=== PATIENT | male | born 1950 | race Caucasian/White ===

== ENCOUNTER 2016-10-23 18:59 | Inpatient (IN) | payer MEDICARE, MEDICAID ==
[~2016-10-23] VITALS: Ht 167.6 cm; Wt 103.0 kg
[2016-10-23] MEDS ORDERED: SODIUM CHLORIDE 0.9% 1L BAG IV* STA (19:17)
[2016-10-23] MEDS ORDERED: CEFEPIME 2GM/50 ML (PMX) 50 ML IVPB STA (19:17)
[2016-10-23 19:20] VITALS: Ht 167.6 cm; Wt 103.0 kg
[2016-10-23] MEDS ORDERED: VANCOMYCIN 1 GM (PMX) 250 ML IVPB SCH ×2 (19:30→20:30)
[2016-10-23] MEDS ORDERED: IBUPROFEN 600 MG TAB PO ONE (19:30)
[2016-10-23 19:41] LABS: ADD SCAN DIFF NO
[2016-10-23 19:43] LABS: BASOPHIL # 0.1 10^3/ul (0.0-0.1); BASOPHILS % 0.6 % (0.0-2.0); EOSINOPHILS # 1.2 10^3/ul (0.0-0.5); HEMATOCRIT 35.4 % (42.0-52.0); HEMOGLOBIN 11.1 g/dl (14.0-18.0); LYMPHOCYTES # 4.4 10^3/ul (0.8-2.9); LYMPHOCYTES % 22.9 % (15.0-51.0); MEAN CORPUSCULAR HEMOGLOBIN 27.2 pg (29.0-33.0); MEAN CORPUSCULAR HGB CONC 31.4 g/dl (32.0-37.0); MEAN CORPUSCULAR VOLUME 86.8 fl (82.0-101.0); MEAN PLATELET VOLUME 9.5 fl (7.4-10.4); MONOCYTE # 1.2 10^3/ul (0.3-0.9); MONOCYTES % 6.1 % (0.0-11.0); NEUTROPHIL # 12.3 10^3/ul (1.6-7.5); NEUTROPHILS % 63.9 % (39.0-77.0); PLATELET COUNT 369 10^3/UL (140-415); RED BLOOD COUNT 4.08 10^6/ul (4.70-6.10); RED CELL DISTRIBUTION WIDTH 15.8 % (11.5-14.5); WHITE BLOOD COUNT 19.2 10^3/ul (4.8-10.8)
[2016-10-23 20:03] LABS: ALBUMIN/GLOBULIN RATIO 1.08; BILIRUBIN,INDIRECT 0.2 mg/dl (0-1.1); BILIRUBIN,TOTAL 0.2 mg/dl (0.2-1.3); CREATININE 1.27 mg/dl (0.61-1.24); POTASSIUM 3.8 mmol/L (3.5-5.1); TOTAL PROTEIN 7.7 g/dl (6.1-8.1)
[2016-10-23 20:08] LABS: INR 1.18; PROTIME 15.1 Sec (12.2-14.2); PT RATIO 1.2
[2016-10-23 20:09] LABS: PARTIAL THROMBOPLASTIN TIME 28.9 Sec (25.0-35.0)
[2016-10-23] MEDS ORDERED: PIPER-TAZO 3.375 GM IV (PMX) 100 ML IVPB ONE (20:30)
--- NOTE | 2016-10-23 21:00 | RADRPT ---
PROCEDURE: XR Chest. CLINICAL INDICATION: Tracheostomy placement. TECHNIQUE: Portable AP upright view of the chest was obtained. COMPARISON: None. FINDINGS: The cardiomediastinal silhouette is moderately enlarged. Distal tip of the tracheostomy is in good position approximately 3.4 cm above the sahra. Diffuse pulmonary vascular congestion and bilateral pleural effusions are concerning for congestive heart failure. Diffuse spondylosis of the thoracic spine is seen without evidence of acute osseous abnormality. Calcification is visible within the ao rta RPTAT:HJJR IMPRESSION: 1. Distal tip of the tracheostomy in good radiographic position. 2. Cardiac silhouette enlargement with diffuse pulmonary vascular congestion and bilateral pleural effusions concerning for congestive heart failure. 3. Aortic atherosclerosis is present. Physician Juan Antonio Date Time Electronically viewed and signed by Physician Juan Antonio on 10/23/2016 21:00 /
--- NOTE | 2016-10-23 21:25 | ERA ---
ER Documentation Chief Complaint Date/Time DATE: 10/23/16 TIME: 21:15 Chief Complaint sob after trache became dislodged HPI 66-year-old man brought in by EMS from [facility] for respiratory distress and hypoxia. Nurses were attempting to suction his tracheostomy tube and the tracheostomy tube became dislodged and they had difficulty replacing it, patient developed cyanosis and respiratory distress. EMS was called and they cut the tip of the tracheostomy tube and placed it back in and symptoms improved. Patient was transported here without further complications. Patient had a fever today, he has had no chest pain, and is asymptomatic now. HPI was supplemented by reviewing past medical history, [facility] records, speaking to EMS, and nursing staff. ROS All systems reviewed and are negative except as per history of present illness. Allergies Allergies: Coded Allergies: No Known Allergy (Unverified , 10/23/16) PMhx/Soc Obesity, bilateral lower extremity paralysis, tracheostomy, hypertension, History of Surgery: Yes (tracheostomy) Anesthesia Reaction: No Hx Neurological Disorder: No Hx Respiratory Disorders: Yes (respiratory failure w/ hypoxia) Hx Cardiac Disorders: Yes (afib, meth induced cardiomyopathy, hld) Hx Psychiatric Problems: No Hx Miscellaneous Medical Probl: Yes (dm,cholecystitis) Hx Alcohol Use: No Hx Substance Use: Yes (meth) Hx Tobacco Use: Yes Smoking Status: Former smoker FmHx Family History: diabetes Physical Exam Vitals Vital Signs Date Time Temp Pulse Resp B/P Pulse Ox O2 Delivery O2 Flow Rate FiO2 10/23/16 19:39 100.4 89 20 140/81 99 Trach Collar 4.0 10/23/16 19:20 100.4 90 15 151/81 95 10/23/16 19:15 98 4.0 10/23/16 19:00 84 24 100 100 Physical Exam GENERAL: Well-developed, dehydrated, febrile HEENT: Dry mucous membranes, pink conjunctiva, no cervical spine deformity, neck appears clean and dry, tracheostomy tube is in place at this time without discharge NEURO: Alert and oriented 2 able to answer questions and follow simple commands , nonverbal, pupils equal round reactive to light, bilateral lower extremity paresis CARDIAC: Tachycardic and regular no murmurs rubs or gallops LUNGS: Bibasilar crackles, no wheezing or stridor ABDOMEN: Soft nontender, no guarding, no rigidity, no rebound, no psoas sign no obturator sign. SKIN: Hot and dry to touch, no abrasions, contusions, or hematomas, no lacerations, no ecchymosis, no target lesions, and without ulcers EXTREMITIES: No clubbing cyanosis or edema, calves are bilaterally symmetrical, no Homans sign, no popliteal cord sign. Distal pulses equal and bilateral PSYCH: Normal affect without agitation or irritability Result Diagram: 10/23/16191410/23/161914 Results 24 hrs Laboratory Tests Test 10/23/16 19:06 10/23/16 19:15 10/23/16 21:09 Bedside Glucose 225mg/dL White Blood Count 19.210^3/ul Red Blood Count 4.0810^6/ul Hemoglobin 11.1g/dl Hematocrit 35.4% Mean Corpuscular Volume 86.8fl Mean Corpuscular Hemoglobin 27.2pg Mean Corpuscular Hemoglobin Concent 31.4g/dl Red Cell Distribution Width 15.8% Platelet Count 93543^3/UL Mean Platelet Volume 9.5fl Neutrophils % 63.9% Lymphocytes % 22.9% Monocytes % 6.1% Eosinophils % 6.0% Basophils % 0.6% Nucleated Red Blood Cells % 0.0/100WBC Neutrophils # 12.310^3/ul Lymphocytes # 4.410^3/ul Monocytes # 1.210^3/ul Eosinophils # 1.210^3/ul Basophils # 0.110^3/ul Nucleated Red Blood Cells # 0.010^3/ul Prothrombin Time 15.1Sec Prothrombin Time Ratio 1.2 INR International Normalized Ratio 1.18 Activated Partial Thromboplast Time 28.9Sec Sodium Level 142mmol/L Potassium Level 3.8mmol/L Chloride Level 105mmol/L Carbon Dioxide Level 26mmol/L Anion Gap 15 Blood Urea Nitrogen 19mg/dl Creatinine 1.27mg/dl Glucose Level 246mg/dl Lactic Acid Level 2.3mmol/L Calcium Level 9.0mg/dl Total Bilirubin 0.2mg/dl Direct Bilirubin 0.00mg/dl Indirect Bilirubin 0.2mg/dl Aspartate Amino Transf (AST/SGOT) 23IU/L Alanine Aminotransferase (ALT/SGPT) 22IU/L Alkaline Phosphatase 134IU/L Troponin I 0.044ng/ml Total Protein 7.7g/dl Albumin 4.0g/dl Globulin 3.70g/dl Albumin/Globulin Ratio 1.08 Lipase 30U/L Urine Color YELLOW Urine Clarity SLIGHTLY CLOUDY Urine pH 5.0 Urine Specific [place] 1.027 Urine Ketones NEGATIVEmg/dL Urine Nitrite NEGATIVEmg/dL Urine Bilirubin NEGATIVEmg/dL Urine Urobilinogen NEGATIVEmg/dL Urine Leukocyte Esterase NEGATIVELeu/ul Urine Microscopic RBC 3/HPF Urine Microscopic WBC 4/HPF Urine Bacteria FEW/HPF Urine Hyaline Casts FEW/HPF Urine Mucus FEW/HPF Urine Hemoglobin NEGATIVEmg/dL Urine Glucose 1+mg/dL Urine Total Protein 3+mg/dl Current Medications Medications (Trade) Dose Ordered Sig/Juventino Route PRN Reason Start Time Stop Time Status Last Admin Dose Admin Sodium Chloride 2000 ml 2,000 ml BOLUS OVER 2 HOURS STAT IV* 10/23/16 19:17 10/23/16 19:19 DC 10/23/16 19:44 Cefepime HCl 50 ml @ 100 mls/hr ONCE STAT IVPB 10/23/16 19:17 10/23/16 19:46 DC 10/23/16 21:10 Vancomycin HCl (Vancocin) 250 ml @ 125 mls/hr ONCE IVPB 10/23/16 19:30 10/23/16 21:29 DC 10/23/16 21:26 Ibuprofen 600 mg 600 mg ONCE ONCE PO 10/23/16 19:30 10/23/16 19:31 DC 10/23/16 19:44 Piperacillin Sod/ Tazobactam Sod 100 ml @ 200 mls/hr ONCE ONCE IVPB 10/23/16 20:30 10/23/16 21:00 DC Vancomycin HCl (Vancocin) 250 ml @ 125 mls/hr ONCE IVPB 10/23/16 20:30 10/23/16 22:29 Procedures/MDM IV line was established patient was placed on lead cook rhythm strip revealed a irregular narrow complex rate at about 90 bpm. Patient was febrile, temperature 100.4F. Blood and urine cultures have been ordered results are pending I will follow-up. EKG performed, read by me revealed atrial fibrillation rate controlled at 98 bpm with multiple premature ventricular contractions, normal axis, narrow QRS complex, no concerning ST elevations or depressions noted. One view chest x-ray performed, read by me the tracheostomy tube is in place, there is small bilateral pleural effusions, no acute infiltrates, no pneumothorax. The tracheostomy tube was replaced here in the emergency department and patient was found to have a large pleural plug which was suctioned out, most likely the cause of his initial respiratory symptoms. I administered 2 L normal saline intravenously and ibuprofen 600 mg p.o. for fever. A full 30 cc/kg bolus was not administered given the patient's body habitus and chest x-ray findings, I did have a concern for congestive heart failure pulmonary fluid overload. I treated the patient here with cefepime 2 g IV, Zosyn 3.375 g IV, and vancomycin 1 g IV. CBC revealed a leukocytosis of 19, electrolytes revealed dehydration with a BUN/ creatinine 19/1.3, liver function tests are normal, troponin was negative. Urinalysis was cloudy, cultures are pending. Lactic acid elevated initially at 2.3. Patient's infectious symptoms have not stabilized and the patient is at risk of rapid decompensation. The patient will be admitted for careful hydration, antibiotic therapy, and infectious source control. Severe Sepsis Assessment: Infectious Source: Pulmonary End organ damage indicated by: Lactate > 2.0 mmol/L Acute Resp Failure (sat < 92% w/o oxygen) Severe Sepsis Managment: Blood Cultures X 2 before broad spectrum antibiotics initiated within 3 hours of recognition. 30 ml/kg NS bolus Completed Initial Lactate: Elevated at 2.3 Repeat Lactate pending Critical Care: Time: 38 minutes, this was time separate from other billable procedures. Treatments/Evaluations: Emergent fluid management, while maintaining close respiratory support. Immediate broad spectrum antibiotic therapy. Simultaneous assessment for possible sources in order to direct therapy. Consideration for invasive and chemical support to prevent respiratory or cardiac collapse. Septic Shock Assessment (1 hour post 30 ml/kg fluid bolus): Hypotension (SBP < 90 or 40 mmHg drop, MAP < 65): [No] Lactic acid > 4.0 [No] Perfusion Reassessment for Septic Shock: Temp temp 99, pulse 88, respiratory rate 18, BP 120/80 Heart Exam: Regular rate rhythm Lung Exam: Bibasilar crackles Capillary Refill: Less than 2 seconds Peripheral Pulses: [Radially present] Skin: [place] and dry Hypotensive Treatment (not required for isolated lactic acid elevation): Comfort Care: No Central LIne: Not indicated Vasopressor started: None needed I considered further perfusion assessment with CVP measurement, SCVO2, bedside ultrasound volume assessment, passive leg raise, trial of further fluid bolus. And preceded with IV hydration, broad-spectrum IV antibiotics, and tracheostomy tube replacement Accepting Care Team: Current data and ongoing care discussed. Time: Time of admission Primary Provider: Hospitalist Consulting: Pulmonology Outstanding Data: none Departure Diagnosis: Primary Impression: Acute respiratory failure Qualified Code: J96.01 - Acute respiratory failure with hypoxia and hypercapnia Additional Impressions: Pneumonia Qualified Code: J69.0 - Aspiration pneumonia of both lower lobes, unspecified aspiration pneumonia type Tracheostomy malfunction Encounter for tracheostomy tube change Leukocytosis Qualified Code: D72.820 - Lymphocytosis Sepsis Qualified Code: A41.9 - Sepsis, due to unspecified organism Condition: DESTIN Graham MD Oct 23, 2016 21:25
[2016-10-23 21:30] VITALS: TEMP 98.6
[2016-10-23 21:55] VITALS: BP 138/93; PULSE 76; RESP 21
[2016-10-23 22:03] LABS: ADD UMIC YES; UR ASCORBIC ACID 40 mg/dL (NEGATIVE); UR BACTERIA FEW /HPF (NONE SEEN); UR BILIRUBIN (Dip) NEGATIVE (NEGATIVE); UR BLOOD (Dip) NEGATIVE (NEGATIVE); UR CLARITY SLIGHTLY CLOUDY (CLEAR); UR COLOR YELLOW (YELLOW); UR GLUCOSE (Dip) 1+ mg/dL (NEGATIVE); UR KETONES (Dip) NEGATIVE (NEGATIVE); UR LEUKOCYTE ESTERASE (Dip) NEGATIVE Leu/ul (NEGATIVE); UR MUCUS FEW /HPF (NONE SEEN); UR NITRITE (Dip) NEGATIVE (NEGATIVE); UR RBC 3 /HPF (0-5); UR SPECIFIC GRAVITY (Dip) 1.027 (1.003-1.030); UR TOTAL PROTEIN (Dip) 3+ mg/dl (NEGATIVE); UR UROBILINOGEN (Dip) NEGATIVE (NEGATIVE)
[2016-10-23 22:07] VITALS: PULSE 78
[2016-10-23 22:08] VITALS: PULSE 78
[2016-10-23] MEDS ORDERED: NACL 0.9% 3 ML SYG IV SCH (23:30)
[2016-10-23] MEDS ORDERED: LORAZEPAM 2 MG INJ IV PRN (23:30)
[2016-10-23] MEDS ORDERED: ONDANSETRON 4 MG INJ IV PRN (23:30)
[2016-10-23] MEDS ORDERED: VANCOMYCIN IV PER PHARMACY XX SCH (23:30)
[2016-10-23] MEDS ORDERED: morphine 2 MG INJ IV PRN (23:30)
[2016-10-23] MEDS ORDERED: ACETAMINOPHEN 325 MG TAB PO PRN (23:30)
[2016-10-23 23:53] VITALS: BP 138/93; RESP 21
[2016-10-24] VITALS (12 sets, daily range): BP systolic 139–180; BP diastolic 61–81; PULSE 46–84; RESP 19–20
[2016-10-24] MEDS: HEPARIN 5,000 UNIT/0.5 ML VIAL SC SCH ×2 (01:37→05:51)
[2016-10-24] MEDS: VANCOMYCIN 1 GM in NS 250 ML IVPB SCH ×3 (01:38→23:39)
[2016-10-24] MEDS: PIPER-TAZO 3.375 GM IV (PMX) 100 ML IVPB SCH ×5 (01:38→23:39)
[2016-10-24] MEDS ORDERED: ALBUTEROL/IPRATROPIUM (NEB) 3 ML AMP HHN PRN (03:30)
[2016-10-24] MEDS ORDERED: GLUCAGON 1 MG INJ IM PRN (04:30)
[2016-10-24] MEDS ORDERED: GLUCOSE GEL 15 GRAM TUBE PO PRN ×2 (04:30)
[2016-10-24] MEDS ORDERED: GLUCOSE GEL 15 GRAM TUBE BUCCAL PRN (04:30)
[2016-10-24] MEDS ORDERED: DEXTROSE 50% 50 ML SYRINGE IV PRN ×2 (04:30)
[2016-10-24] MEDS ORDERED: SUCR1TAB27 PO (04:33)
[2016-10-24] MEDS ORDERED: TRAM50TA2 PO (04:33)
[2016-10-24] MEDS ORDERED: PANT40TA4 PO (04:33)
[2016-10-24] MEDS ORDERED: CRAN450C PO (04:33)
[2016-10-24] MEDS ORDERED: ACET325T33 PO (04:33)
[2016-10-24] MEDS ORDERED: RIVA15TA PO (04:33)
[2016-10-24] MEDS ORDERED: POLY17PO6 PO (04:33)
[2016-10-24] MEDS ORDERED: DIGO250T6 PO (04:33)
[2016-10-24] MEDS ORDERED: FER325 PO (04:33)
[2016-10-24] MEDS ORDERED: ALBU2.5V3 NEB ×2 (04:38→04:44)
[2016-10-24] MEDS ORDERED: IPRA3AMP INHALATION (04:41)
[2016-10-24] MEDS ORDERED: CHLO118L3 TOP (04:44)
[2016-10-24] MEDS ORDERED: MULT1TAB59 PO (04:58)
[2016-10-24] MEDS: INSULIN ASPART [NOVOLOG] 3 ML PEN SC SCH ×3 (05:00→12:11)
[2016-10-24] MEDS: PANTOPRAZOLE 40 MG INJ IV SCH (05:49)
--- NOTE | 2016-10-24 07:23 | HP ---
Date/Time of Note Date/Time of Note DATE: 10/24/16 TIME: 07:18 Assessment/Plan VTE Prophylaxis VTE Prophylaxis Intervention: other (On Xarelto) Lines/Catheters IV Catheter Type (from [facility]): [place] [facility] Urinary Cath still in place: No Assessment/Plan Chief Complaint/Hosp Course This is a 66-year-old male being admitted to telemetry floor for: #1 sepsis: Fevers and elevated white blood cell count and suspected aspiration pneumonia. Currently on vancomycin and Zosyn for possible aspiration pneumonia. Trend lactate level. #2 suspected aspiration pneumonia: Patient was having possible mucous plugging. Trach was placed by the ED. Initially trach was removed by the paramedics and reinserted. Current time will treat for suspected aspiration pneumonia as patient did have fevers. Will consult pulmonology. Continue antibiotics as per #1 #3 history of respiratory failure status post trach: Continue trach care. Consult pulmonology. Consider ENT consult if indicated. #4 cardiomyopathy: History of methamphetamine induced cardiopathy. X-ray shows possible congestion versus pneumonia. Will order BNP to further evaluate. 2D echocardiogram. #5 chronic kidney disease: Continue to monitor IV fluid hydration. #6 type 2 diabetes mellitus: Hold her A1c level insulin sliding scale. #7 atrial fibrillation: Currently rate controlled, Xarelto For a DVT and GI prophylaxis currently on Xarelto, Protonix Further treatment strategy as per the clinical course Problems: HPI/ROS Admit Date/Time Admit Date/Time Oct 23, 2016 at 21:15 Hx of Present Illness 66-year-old man brought in by EMS from [facility] for respiratory distress and hypoxia. Nurses were attempting to suction his tracheostomy tube and the tracheostomy tube became dislodged and they had difficulty replacing it, patient developed cyanosis and respiratory distress. EMS was called and they cut the tip of the tracheostomy tube and placed it back in and symptoms improved. Patient was transported here without further complications. Patient had a fever today, he has had no chest pain, and is asymptomatic now. HPI was supplemented by reviewing past medical history, [facility] records, speaking to EMS, and nursing staff. ROS Const: As per HPI Eyes : No pain discharge or redness or change in visual acuity ENT: As per HPI Respiratory: As per HPI Cardiovascular: No chest pain, palpitation, PND, or edema GI : no change in appetite, abdominal pain, nausea, vomiting, diarrhea, constipation, or change in the color his stool Genitourinary: No dysuria, hematuria, flank pain , discharge or CVA tenderness Musculoskeletal: No joint pain, back pain, neck pain, restricted range of motion in neck or joints Skin: No rash, bruising or hives Neuro: No headache, dizziness, syncope, seizure, focal weakness Endocrine: No polyuria, polydipsia, temperature intolerance Psych: No hallucination, depression, anxiety or suicidal ideation PMH/Family/Social Past Medical History Respiratory failure status post trach, type 2 diabetes, chronic kidney disease, 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 fib on Xarelto, obstructive sleep apnea, COPD Past Surgical History Tracheostomy Social History Alcohol Use: none Smoking Status: Former smoker Drug Use: other (Methamphetamine use in the past) Exam/Review of Systems Vital Signs Vitals Vital Signs Date Time Temp Pulse Resp B/P Pulse Ox O2 Delivery O2 Flow Rate FiO2 10/24/16 05:38 59 18 98 Aerosol 5.0 28 T Tube 10/23/16 23:53 98.6 138/93 Intake and Output 10/23/16 10/23/16 10/24/16 15:00 23:00 07:00 Intake Total 450 ml Balance 450 ml Exam Exam General: Patient lying in bed in no acute distress, or bili obese HEENT: Trach intact, placed in ED and correct placement confirmed on chest x- ray , normocephalic atraumatic Neck: Supple with full range of motion. No rigidity or meningismus Chest: Nontender Lungs: Coarse breath sounds bilaterally Heart: Normal S1-S2, Regular rhythm and rate. No overt murmur patient Abdomen: Soft , nontender, nondistended , bowel sounds are present. No guarding no rebound tenderness , No masses or organomegaly. No costovertebral temporal angle mass Extremities: Normal to inspection, no edema no cyanosis Neurologic: Normal mental status, speech normal, cranial nerves II through XII are intact, motor and sensory are intact, Additional Comments PROCEDURE: XR Chest. CLINICAL INDICATION: Tracheostomy placement. TECHNIQUE: Portable AP upright view of the chest was obtained. COMPARISON: None. FINDINGS: The cardiomediastinal silhouette is moderately enlarged. Distal tip of the tracheostomy is in good position approximately 3.4 cm above the sahra. Diffuse pulmonary vascular congestion and bilateral pleural effusions are concerning for congestive heart failure. Diffuse spondylosis of the thoracic spine is seen without evidence of acute osseous abnormality. Calcification is visible within the aorta RPTAT:HJJR IMPRESSION: 1. Distal tip of the tracheostomy in good radiographic position. 2. Cardiac silhouette enlargement with diffuse pulmonary vascular congestion and bilateral pleural effusions concerning for congestive heart failure. 3. Aortic atherosclerosis is present. Physician Juan Antonio Date Time Electronically viewed and signed by Angel Tirado Physician on 10/23/2016 21:00 EKG: Atrial fibrillation rate controlled at 98 bpm with multiple premature ventricular contractions, normal axis, narrow QRS complex, no concerning ST elevations or depressions noted. Labs Result Diagram: 10/23/16191410/23/161914 Medications Medications Current Medications Lorazepam (Ativan) 0.5 mg Q6H PRN IV ANXIETY; Start 10/23/16 at 23:30 Ondansetron HCl (Zofran Inj) 4 mg Q6H PRN IV NAUSEA AND/OR VOMITING; Start 10/23 at 23:30 Acetaminophen (Tylenol Tab) 650 mg Q6H PRN PO PAIN LEVEL 1-3 OR FEVER; Start at 23:30 Morphine Sulfate (morphine) 2 mg Q4H PRN IV PAIN LEVEL 7-10; Start 10/23/16 at 23:30 Pantoprazole (Protonix Iv) 40 mg DAILY@06 IV Last administered on 10/24/16 05: 49; Admin Dose 40 MG; Start 10/24/16 at 06:00 Heparin Sodium (Porcine) 5000 unit 5,000 unit Q8 SC Last administered on 05:51; Admin Dose 5,000 UNIT; Start 10/23/16 at 23:30 Piperacillin Sod/ Tazobactam Sod 100 ml @ 200 mls/hr Q6 IVPB Last administered on 10/24/16 05:49; Admin Dose 200 MLS/HR; Start 10/24/16 at 00:00 Vancomycin HCl (Vancocin) 250 ml @ 125 mls/hr Q12H IVPB Last administered on 01:38; Admin Dose 125 MLS/HR; Start 10/24/16 at 00:30 Insulin Aspart (Novolog Insulin Pen) NOVOLOG *MODERATE* ALGORI... Q4 SC ; Start 10/24/16 at 05:00 Miscellaneous Information 1 ea NOTE XX ; Start 10/24/16 at 04:30 Glucose (Glutose) 15 gm Q15M PRN PO DECREASED GLUCOSE; Start 10/24/16 at 04:30 Glucose (Glutose) 22.5 gm Q15M PRN PO DECREASED GLUCOSE; Start 10/24/16 at 04: 30 Dextrose (D50w Syringe) 25 ml Q15M PRN IV DECREASED GLUCOSE; Start 10/24/16 at 04:30 Dextrose (D50w Syringe) 50 ml Q15M PRN IV DECREASED GLUCOSE; Start 10/24/16 at 04:30 Glucagon (Glucagen) 1 mg Q15M PRN IM DECREASED GLUCOSE; Start 10/24/16 at 04:30 Glucose (Glutose) 15 gm Q15M PRN BUCCAL DECREASED GLUCOSE; Start 10/24/16 at 04 :30 JESSICA BAUMANN Oct 24, 2016 07:23
[2016-10-24 07:39] LABS: ADD SCAN DIFF NO
[2016-10-24 07:42] LABS: BASOPHIL # 0.1 10^3/ul (0.0-0.1); BASOPHILS % 0.4 % (0.0-2.0); EOSINOPHILS # 0.4 10^3/ul (0.0-0.5); EOSINOPHILS % 3.1 % (0.0-7.0); HEMATOCRIT 31.7 % (42.0-52.0); HEMOGLOBIN 9.6 g/dl (14.0-18.0); LYMPHOCYTES # 1.8 10^3/ul (0.8-2.9); LYMPHOCYTES % 12.7 % (15.0-51.0); MEAN CORPUSCULAR HEMOGLOBIN 26.7 pg (29.0-33.0); MEAN CORPUSCULAR HGB CONC 30.3 g/dl (32.0-37.0); MEAN CORPUSCULAR VOLUME 88.1 fl (82.0-101.0); MEAN PLATELET VOLUME 9.7 fl (7.4-10.4); MONOCYTES % 6.8 % (0.0-11.0); NEUTROPHIL # 10.7 10^3/ul (1.6-7.5); NEUTROPHILS % 76.6 % (39.0-77.0); PLATELET COUNT 219 10^3/UL (140-415); RED CELL DISTRIBUTION WIDTH 15.8 % (11.5-14.5)
[2016-10-24 08:25] LABS: ALBUMIN 3.3 g/dl (3.3-4.9); CALCIUM 8.8 mg/dl (8.4-10.2); CHOL/HDL RATIO 5.2 RATIO; CREATININE 1.13 mg/dl (0.61-1.24); TOTAL PROTEIN 6.6 g/dl (6.1-8.1)
[2016-10-24] MEDS ORDERED: ALBUTEROL 0.083% (NEB) 2.5 MG/3 ML AMP NEB PRN ×2 (08:30)
[2016-10-24] MEDS ORDERED: ACETAMINOPHEN 325 MG TAB PO PRN (08:30)
[2016-10-24] MEDS ORDERED: ALBUTEROL/IPRATROPIUM (NEB) 3 ML AMP INH PRN (08:30)
[2016-10-24 08:56] LABS: THYROID STIMULATING HORMONE 0.267 MIU/L (0.465-4.680)
[2016-10-24] MEDS ORDERED: NON-FORMULARY/PATIENT OWN MED (Cranberry Fruit Concentrate (Cranberry) 450 MG) PO SCH (09:00)
[2016-10-24] MEDS: POLYETHYLENE GLYCOL 17 GM PACKET PO SCH (11:15)
[2016-10-24] MEDS: CHLORHEXIDINE GLUCONATE 15 ML UD CUP MT SCH ×2 (11:15→21:36)
[2016-10-24] MEDS: MULTIVITAMINS THERAPEUTIC TAB PO SCH (11:15)
[2016-10-24] MEDS: FERROUS SULFATE (EC) 325 MG TAB PO SCH (11:16)
--- NOTE | 2016-10-24 11:52 | RADRPT ---
Echocardiogram Report Patient Name: KEN TEJEDA Gender: Male Date: 1950 Study Date: 24-Oct-2016 Business Analysis Consultant: Zeyad Ayala [facility] Location: [id number] Ref. Physician: JESSICA BAUMANN Quality: Technically Difficult Study Procedures: Transthoracic echocardiogram with complete 2D, M-Mode, and doppler examination. Indications: vascular congestion. 2D/M Mode Doppler Measurement Value Normal Ranges Measurement Value Normal Ranges LVIDd 2D 4.2 3.5 - 5.6 cm PALMER Vmax 1.4 cm2 LVIDs 2D 3.6 2.1 - 4.1 cm PALMER VTI 1.4 cm2 LVPWd 2D 1.3 0.6 - 1.1 cm AV Mean Corey 2.2 m/sec IVSd 2D 1.2 0.6 - 1.1 cm AV Mean PG 22.5 mmHg AoR Diam 2D 3.3 2.0 - 3.7 cm AV Peak Corey 3.0 m/sec EDV 2D 80.5 cm3 AV Peak PG 12.7 mmHg ESV 2D 46.6 cm3 AV VTI 62.9 cm LA Dimen 2D 4.1 2.3 - 4.0 cm LVOT Mean Corey 0.8 m/sec LVOT Diam 2.1 cm LVOT Mean PG 3.3 mmHg LVOT Peak Corey 1.2 m/sec LVOT Peak PG 5.8 mmHg LVOT VTI 23.5 cm TR Peak Corey 3.3 m/sec TR Peak PG 43.8 mmHg RVSP 52.0 mmHg Findings Left Ventricle: Normal left ventricular systolic function. Normal left ventricular cavity size. Mild concentric left ventricular hypertrophy. Ejection fraction is visually estimated at 60 %. Abnormal Diastolic Function. Right Ventricle: Normal right ventricular size. Normal right ventricular systolic function. Left Atrium: There is mild enlargement of left atrium. Right Atrium: The right atrium is normal in size. Mitral Valve: Mitral valve leaflets appear mildly thickened. Mild mitral annular calcification. Trace mitral regurgitation. Aortic Valve: Moderate aortic stenosis. Max PG 34.90 mmHg. Mean PG 22.50 mmHg. Aortic cusps appear moderately calcified. Trace aortic valve regurgitation. Tricuspid Valve: Normal appearance of the tricuspid valve. Estimated peak PA systolic pressure 52 mmHg. There is moderate tricuspid regurgitation. Pulmonic Valve: Normal pulmonic valve appearance. Pericardium: Normal pericardium with no significant pericardial effusion. Aorta: Normal aortic root. IVC: Normal size and no respiratory collapse consistent with elevated right atrial pressure. Conclusions Normal left ventricular systolic function. Normal left ventricular cavity size. Mild concentric left ventricular hypertrophy. Ejection fraction is visually estimated at 60 %. Abnormal Diastolic Function. Normal right ventricular size. Normal right ventricular systolic function. There is mild enlargement of left atrium. The right atrium is normal in size. Moderate aortic stenosis. Trace aortic valve regurgitation. Estimated peak PA systolic pressure 52 mmHg. There is moderate tricuspid regurgitation. Trace mitral regurgitation. Normal pericardium with no significant pericardial effusion. Electronically Signed By: Nasir Da Silva 24-Oct-2016 11:51:58 -0700 Patient Name: KEN TEJEDA Study Date: 24-Oct-[id number]
[2016-10-24] MEDS ORDERED: FUROSEMIDE 20 MG INJ IV SCH (12:30)
[2016-10-24] MEDS ORDERED: hydrALAzine 20 MG INJ IV PRN (12:30)
[2016-10-24] MEDS: DIGOXIN 0.25 MG TAB PO SCH (13:47)
[2016-10-24] MEDS: traMADol 50 MG TAB PO SCH ×2 (13:49→21:36)
--- NOTE | 2016-10-24 14:37 | CONS ---
Date/Time of Note Date/Time of Note DATE: 10/24/16 TIME: 13:08 Assessment/Plan Assessment/Plan Additional Assessment/Plan Shortness of breath, likely multifactorial. Acute decompensated systolic congestive heart failure Preserved ejection fraction Possible pneumonia Atrial fibrillation, rate controlled Hypertension Acute on chronic respiratory failure with tracheostomy -Would increase IV diuretic regimen, antibiotics as per primary team. Ejection fraction currently 60% with moderate tricuspid valve regurgitation. We will start INES inhibitor if no contraindication. No beta-hitesh at the current time given episodes of bradycardia and heart rate currently well controlled. Maintain potassium above 4.0 and magnesium above 2.0 Consultation Date/Type/Reason Admit Date/Time Oct 23, 2016 at 21:15 Type of Consultation: cv Reason for Consultation Shortness of breath Hx of Present Illness This is a 66-year-old male with history of chronic respiratory failure with tracheostomy, who presents with symptoms of fevers and chills, cough and shortness of breath worsening over the past 3 days. Cough is mildly productive. He does also complain of increased lower extremity swelling. He has minimal ambulation with a wheelchair given his overall medical state. He presents in a facility. Denies any palpitations, dizziness or lightheadedness. Denies any chest discomfort. His symptoms of shortness of breath has improved significantly since his admission and denies any fevers or chills today. 12 point review of systems was performed with all pertinent positives and negatives mentioned above and all else is negative Past Medical History Atrial fibrillation Medical History: congestive heart failure, hypertension Past Surgical History Including but not limited to tracheostomy Family History Significant Family History: no pertinent family hx Social History Alcohol Use: none Smoking Status: Former smoker Drug Use: other (Methamphetamine use in the past) Other Social History From a skilled facility Exam/Review of Systems Vital Signs Vitals Vital Signs Date Time Temp Pulse Resp B/P Pulse Ox O2 Delivery O2 Flow Rate FiO2 10/24/16 12:29 69 10/24/16 11:45 98.7 19 167/73 96 10/24/16 10:34 5.0 28 10/24/16 10:32 Aerosol T Tube Intake and Output 10/23/16 10/23/16 10/24/16 15:00 23:00 07:00 Intake Total 450 ml Balance 450 ml Exam No apparent distress, following commands, able to give history Constitutional: alert, obese, oriented Head: normocephalic Neck: other (Tracheostomy) Respiratory: other (Coarse breath sounds bilaterally, no wheezing) Cardiovascular: irregular rhythm, other (S1-S2 heard), systolic murmur Gastrointestinal: bowel sounds, non-tender, other (No guarding), soft Extremities: edema Results Result Diagram: 10/24/16 0622 10/24/16 0622 Results 24 hrs Laboratory Tests Test 10/23/16 19:06 10/23/16 19:15 10/23/16 21:09 10/23/16 21:45 Bedside Glucose 225 H White Blood Count 19.2 H Red Blood Count 4.08 L Hemoglobin 11.1 L Hematocrit 35.4 L Mean Corpuscular Volume 86.8 Mean Corpuscular Hemoglobin 27.2 L Mean Corpuscular Hemoglobin Concent 31.4 L Red Cell Distribution Width 15.8 H Platelet Count 369 Mean Platelet Volume 9.5 Neutrophils % 63.9 Lymphocytes % 22.9 Monocytes % 6.1 Eosinophils % 6.0 Basophils % 0.6 Nucleated Red Blood Cells % 0.0 Neutrophils # 12.3 H Lymphocytes # 4.4 H Monocytes # 1.2 H Eosinophils # 1.2 H Basophils # 0.1 Nucleated Red Blood Cells # 0.0 Prothrombin Time 15.1 H Prothrombin Time Ratio 1.2 INR International Normalized Ratio 1.18 Activated Partial Thromboplast Time 28.9 Sodium Level 142 Potassium Level 3.8 Chloride Level 105 Carbon Dioxide Level 26 Anion Gap 15 Blood Urea Nitrogen 19 Creatinine 1.27 H Glucose Level 246 H Lactic Acid Level 2.3 H 1.3 Calcium Level 9.0 Total Bilirubin 0.2 Direct Bilirubin 0.00 Indirect Bilirubin 0.2 Aspartate Amino Transf (AST/SGOT) 23 Alanine Aminotransferase (ALT/SGPT) 22 Alkaline Phosphatase 134 H Troponin I 0.044 Total Protein 7.7 Albumin 4.0 Globulin 3.70 H Albumin/Globulin Ratio 1.08 Lipase 30 Urine Color YELLOW Urine Clarity SLIGHTLY CLOUDY A Urine pH 5.0 Urine Specific [place] 1.027 Urine Ketones NEGATIVE Urine Nitrite NEGATIVE Urine Bilirubin NEGATIVE Urine Urobilinogen NEGATIVE Urine Leukocyte Esterase NEGATIVE Urine Microscopic RBC 3 Urine Microscopic WBC 4 Urine Bacteria FEW A Urine Hyaline Casts FEW A Urine Mucus FEW A Urine Hemoglobin NEGATIVE Urine Glucose 1+ H Urine Total Protein 3+ H Test 10/23/16 22:45 10/24/16 02:10 10/24/16 06:22 10/24/16 09:00 Lactic Acid Level 1.4 Bedside Glucose 118 105 White Blood Count 14.0 #H Red Blood Count 3.60 L Hemoglobin 9.6 L Hematocrit 31.7 L Mean Corpuscular Volume 88.1 Mean Corpuscular Hemoglobin 26.7 L Mean Corpuscular Hemoglobin Concent 30.3 L Red Cell Distribution Width 15.8 H Platelet Count 219 # Mean Platelet Volume 9.7 Neutrophils % 76.6 Lymphocytes % 12.7 L Monocytes % 6.8 Eosinophils % 3.1 Basophils % 0.4 Nucleated Red Blood Cells % 0.0 Neutrophils # 10.7 H Lymphocytes # 1.8 Monocytes # 1.0 H Eosinophils # 0.4 Basophils # 0.1 Nucleated Red Blood Cells # 0.0 Sodium Level 143 Potassium Level 4.0 Chloride Level 106 Carbon Dioxide Level 27 Anion Gap 14 Blood Urea Nitrogen 22 H Creatinine 1.13 Glucose Level 117 # Hemoglobin A1c 5.5 Calcium Level 8.8 Magnesium Level 2.0 Total Bilirubin 0.0 L Direct Bilirubin 0.00 Indirect Bilirubin 0.0 Aspartate Amino Transf (AST/SGOT) 25 Alanine Aminotransferase (ALT/SGPT) 25 Alkaline Phosphatase 102 B-Type Natriuretic Peptide 4410 H Total Protein 6.6 # Albumin 3.3 Globulin 3.30 H Albumin/Globulin Ratio 1.00 Triglycerides Level 130 Cholesterol Level 142 LDL Cholesterol, Calculated 89 HDL Cholesterol 27 L Cholesterol/HDL Ratio 5.2 Thyroid Stimulating Hormone (TSH) 0.267 L Test 10/24/16 12:10 Bedside Glucose 145 Medications Medications Current Medications Lorazepam (Ativan) 0.5 mg Q6H PRN IV ANXIETY; Start 10/23/16 at 23:30 Ondansetron HCl (Zofran Inj) 4 mg Q6H PRN IV NAUSEA AND/OR VOMITING; Start 10/23 at 23:30 Acetaminophen (Tylenol Tab) 650 mg Q6H PRN PO PAIN LEVEL 1-3 OR FEVER; Start at 23:30 Morphine Sulfate (morphine) 2 mg Q4H PRN IV PAIN LEVEL 7-10; Start 10/23/16 at 23:30 Pantoprazole (Protonix Iv) 40 mg DAILY@06 IV Last administered on 10/24/16t 05: 49; Admin Dose 40 MG; Start 10/24/16 at 06:00 Heparin Sodium (Porcine) 5000 unit 5,000 unit Q8 SC Last administered on 05:51; Admin Dose 5,000 UNIT; Start 10/23/16 at 23:30 Piperacillin Sod/ Tazobactam Sod 100 ml @ 200 mls/hr Q6 IVPB Last administered on 10/24/16 11:28; Admin Dose 200 MLS/HR; Start 10/24/16 at 00:00 Vancomycin HCl (Vancocin) 250 ml @ 125 mls/hr Q12H IVPB Last administered on 12:06; Admin Dose 125 MLS/HR; Start 10/24/16 at 00:30 Insulin Aspart (Novolog Insulin Pen) NOVOLOG *MODERATE* ALGORI... Q4 SC Last administered on 10/24/16 12:11; Admin Dose 2 UNIT; Start 10/24/16 at 05:00 Miscellaneous Information 1 ea NOTE XX ; Start 10/24/16 at 04:30 Glucose (Glutose) 15 gm Q15M PRN PO DECREASED GLUCOSE; Start 10/24/16 at 04:30 Glucose (Glutose) 22.5 gm Q15M PRN PO DECREASED GLUCOSE; Start 10/24/16 at 04: 30 Dextrose (D50w Syringe) 25 ml Q15M PRN IV DECREASED GLUCOSE; Start 10/24/16 at 04:30 Dextrose (D50w Syringe) 50 ml Q15M PRN IV DECREASED GLUCOSE; Start 10/24/16 at 04:30 Glucagon (Glucagen) 1 mg Q15M PRN IM DECREASED GLUCOSE; Start 10/24/16 at 04:30 Glucose (Glutose) 15 gm Q15M PRN BUCCAL DECREASED GLUCOSE; Start 10/24/16 at 04 :30 Digoxin (Digoxin) 0.25 mg DAILY@13 PO ; Start 10/24/16 at 13:00 Ferrous Sulfate (Ferrous Sulfate (Ec)) 325 mg DAILY PO Last administered on 11:16; Admin Dose 325 MG; Start 10/24/16 at 09:00 Multivitamins Therapeutic (Theragran) 1 tab DAILY PO Last administered on 11:15; Admin Dose 1 TAB; Start 10/24/16 at 09:00 Polyethylene Glycol (Miralax) 17 gm DAILY PO Last administered on 10/24/16 11: 15; Admin Dose 17 GM; Start 10/24/16 at 09:00 Tramadol HCl (Ultram) 100 mg Q8 PO ; Start 10/24/16 at 14:00 Chlorhexidine Gluconate (Peridex) 15 ml Q12 MT Last administered on 10/24/16t 11:15; Admin Dose 15 ML; Start 10/24/16 at 09:00 Miscellaneous Information (*Rx Drug Level Order Reminder*) VANCOMYCIN TROUGH AT 1130 ONCE ONCE XX ; Start 10/25/16 at 11:30; Stop 10/25/16 at 11:31 Hydralazine HCl (Apresoline) 10 mg Q6H PRN IV SBP>160; Start 10/24/16 at 12:30 Furosemide (Lasix) 20 mg DAILY IV ; Start 10/24/16 at 12:30 Procedures Procedures There is no ECG in the chart, telemetry demonstrates atrial fibrillation with current heart rate in the 70s, lowest in the 40s Nasir Da Silva DO Oct 24, 2016 13:18
[2016-10-24] MEDS ORDERED: FUROSEMIDE 40 MG INJ IV ONE (15:00)
[2016-10-24] MEDS ORDERED: INSULIN ASPART [NOVOLOG] 3 ML PEN SC SCH (17:35)
[2016-10-24] MEDS: Insulin NOVOLOG SS MODERATE Algorithm (SS with meals and bedtime) SC SCH ×2 (17:37→21:00)
[2016-10-24] MEDS: RIVAROXABAN 15 MG TABLET PO SCH (18:02)
[2016-10-24] MEDS: SUCRALFATE 1 GM TAB PO SCH (21:36)
[2016-10-25] VITALS (12 sets, daily range): BP systolic 148–166; BP diastolic 65–89; PULSE 60–73; RESP 16–67
[2016-10-25] MEDS: ACCUCHECK 2 AM XX SCH (02:00)
[2016-10-25] MEDS ORDERED: ACCU-CHEK XX SCH (02:00)
[2016-10-25] MEDS: PIPER-TAZO 3.375 GM IV (PMX) 100 ML IVPB SCH ×3 (06:32→18:16)
[2016-10-25] MEDS: PANTOPRAZOLE 40 MG INJ IV SCH (06:32)
[2016-10-25] MEDS: SUCRALFATE 1 GM TAB PO SCH ×2 (06:32→21:20)
[2016-10-25] MEDS: traMADol 50 MG TAB PO SCH ×3 (06:32→21:19)
[2016-10-25 07:46] LABS: ADD SCAN DIFF NO
[2016-10-25 07:53] LABS: BASOPHIL # 0.1 10^3/ul (0.0-0.1); BASOPHILS % 0.5 % (0.0-2.0); EOSINOPHILS # 0.5 10^3/ul (0.0-0.5); EOSINOPHILS % 3.8 % (0.0-7.0); HEMATOCRIT 30.6 % (42.0-52.0); HEMOGLOBIN 9.7 g/dl (14.0-18.0); LYMPHOCYTES # 1.6 10^3/ul (0.8-2.9); LYMPHOCYTES % 11.9 % (15.0-51.0); MEAN CORPUSCULAR HEMOGLOBIN 27.1 pg (29.0-33.0); MEAN CORPUSCULAR HGB CONC 31.7 g/dl (32.0-37.0); MEAN CORPUSCULAR VOLUME 85.5 fl (82.0-101.0); MEAN PLATELET VOLUME 9.9 fl (7.4-10.4); MONOCYTE # 0.9 10^3/ul (0.3-0.9); NEUTROPHIL # 10.2 10^3/ul (1.6-7.5); NEUTROPHILS % 76.4 % (39.0-77.0); PLATELET COUNT 232 10^3/UL (140-415); RED BLOOD COUNT 3.58 10^6/ul (4.70-6.10); RED CELL DISTRIBUTION WIDTH 15.7 % (11.5-14.5); WHITE BLOOD COUNT 13.4 10^3/ul (4.8-10.8)
[2016-10-25] MEDS: Insulin NOVOLOG SS MODERATE Algorithm (SS with meals and bedtime) SC SCH ×4 (08:00→21:00)
[2016-10-25 08:12] LABS: ALBUMIN/GLOBULIN RATIO 0.96; BILIRUBIN,INDIRECT 0.2 mg/dl (0-1.1); BILIRUBIN,TOTAL 0.2 mg/dl (0.2-1.3); CREATININE 1.12 mg/dl (0.61-1.24); POTASSIUM 3.5 mmol/L (3.5-5.1); TOTAL PROTEIN 6.1 g/dl (6.1-8.1)
[2016-10-25 08:36] LABS: PHOSPHORUS 3.4 mg/dl (2.5-4.9)
[2016-10-25] MEDS ORDERED: LISINOPRIL 5 MG TAB PO SCH (09:00)
[2016-10-25] MEDS ORDERED: FUROSEMIDE 20 MG INJ IV SCH (09:00)
[2016-10-25] MEDS: POLYETHYLENE GLYCOL 17 GM PACKET PO SCH (09:26)
[2016-10-25] MEDS: FERROUS SULFATE (EC) 325 MG TAB PO SCH (09:26)
[2016-10-25] MEDS: CHLORHEXIDINE GLUCONATE 15 ML UD CUP MT SCH ×2 (09:26→21:17)
[2016-10-25] MEDS: MULTIVITAMINS THERAPEUTIC TAB PO SCH (09:26)
[2016-10-25] MEDS: DIGOXIN 0.25 MG TAB PO SCH (12:18)
[2016-10-25] MEDS: VANCOMYCIN 1 GM in NS 250 ML IVPB SCH (12:19)
[2016-10-25] MEDS ORDERED: POTASSIUM CHLORIDE (SR) 20 MEQ TAB PO STA (15:55)
--- NOTE | 2016-10-25 15:58 | CONS ---
Date/Time of Note Date/Time of Note DATE: 10/25/16 TIME: 15:55 Assessment/Plan Assessment/Plan Additional Assessment/Plan Assessment 1. Dislodged tracheostomy tube replaced in the emergency room, Shiley size 8 cuff less. 2. Likely tracheobronchitis as cause of fever and leukocytosis 3. Mild congestive cardiac failure with underlying history of cardiomyopathy 4. Acute on chronic hypoxemic respiratory failure 5. Diabetes mellitus Plan 1. Continue tracheostomy care 2. Complete antibiotics of Zosyn and vancomycin 7 days total 3. Pulmonary toilet 4. Aspiration precautions currently on p.o. diet 5. Anticipate downsizing tracheostomy tube at nursing facility 6. DVT and GI prophylaxis From a pulmonary standpoint patient can be discharged back to senior living facility as long as he completes antibiotics and continues on diuresis for his cardiomyopathy. Consultation Date/Type/Reason Admit Date/Time Oct 23, 2016 at 21:15 Date of Consultation: Oct 25, 2016 Type of Consultation: Pulmonary Reason for Consultation Fevers shortness of breath Hx of Present Illness 66-year-old gentleman with a history of respiratory failure with tracheostomy, came in from intermediate for evaluation of dislodged tracheostomy and fever shortness of breath. On admission was found to have elevated white blood cell count and chest x-ray suggestive of congestive cardiac failure. In addition he has had copious oral secretions. Remains awake and alert comfortable at rest no acute distress. Past Medical History Respiratory failure with tracheostomy History of cardiomyopathy Diabetes mellitus Medical History: congestive heart failure, hypertension Social History Alcohol Use: none Smoking Status: Former smoker Drug Use: other (Methamphetamine use in the past) Exam/Review of Systems Vital Signs Vitals Vital Signs Date Time Temp Pulse Resp B/P Pulse Ox O2 Delivery O2 Flow Rate FiO2 10/25/16 15:19 97.7 58 16 151/72 98 10/25/16 14:00 Nasal Cannula 5.0 28 Intake and Output 10/24/16 10/24/16 10/25/16 15:00 23:00 07:00 Intake Total 350 ml 500 ml 650 ml Output Total 1250 ml 100 ml Balance 350 ml -750 ml 550 ml Exam GENERAL: Chronically ill-appearing gentleman comfortable at rest no acute distress VITAL SIGNS: per chart NECK: Supple. No JVD or lymphadenopathy. Tracheostomy site clean and intact CARDIAC EXAM: S1, S2. No added sounds or murmurs. CHEST: clear bilaterally, No added sounds, rales or wheezes ABDOMEN: Soft, nontender. No guarding or rebound. EXTREMITIES: No cyanosis, clubbing or edema. NEUROLOGIC: Generalized weakness. Results Result Diagram: 10/25/16 0638 10/25/16 0638 Results 24 hrs Laboratory Tests Test 10/24/16 17:33 10/24/16 21:34 10/25/16 06:38 10/25/16 08:16 Bedside Glucose 131 152 126 White Blood Count 13.4 H Red Blood Count 3.58 L Hemoglobin 9.7 L Hematocrit 30.6 L Mean Corpuscular Volume 85.5 Mean Corpuscular Hemoglobin 27.1 L Mean Corpuscular Hemoglobin Concent 31.7 L Red Cell Distribution Width 15.7 H Platelet Count 232 Mean Platelet Volume 9.9 Neutrophils % 76.4 Lymphocytes % 11.9 L Monocytes % 7.0 Eosinophils % 3.8 Basophils % 0.5 Nucleated Red Blood Cells % 0.0 Neutrophils # 10.2 H Lymphocytes # 1.6 Monocytes # 0.9 Eosinophils # 0.5 Basophils # 0.1 Nucleated Red Blood Cells # 0.0 Sodium Level 134 L Potassium Level 3.5 Chloride Level 102 Carbon Dioxide Level 29 Anion Gap 7 L Blood Urea Nitrogen 18 Creatinine 1.12 Glucose Level 105 Calcium Level 9.0 Phosphorus Level 3.4 Magnesium Level 2.0 Total Bilirubin 0.2 Direct Bilirubin 0.00 Indirect Bilirubin 0.2 Aspartate Amino Transf (AST/SGOT) 19 Alanine Aminotransferase (ALT/SGPT) 25 Alkaline Phosphatase 105 Total Protein 6.1 Albumin 3.0 L Globulin 3.10 Albumin/Globulin Ratio 0.96 Digoxin Level 0.9 L Test 10/25/16 11:50 10/25/16 12:11 Vancomycin Level Trough 18.7 Bedside Glucose 201 Medications Medications Current Medications Lorazepam (Ativan) 0.5 mg Q6H PRN IV ANXIETY; Start 10/23/16 at 23:30 Ondansetron HCl (Zofran Inj) 4 mg Q6H PRN IV NAUSEA AND/OR VOMITING; Start 10/23 at 23:30 Acetaminophen (Tylenol Tab) 650 mg Q6H PRN PO PAIN LEVEL 1-3 OR FEVER; Start at 23:30 Morphine Sulfate (morphine) 2 mg Q4H PRN IV PAIN LEVEL 7-10; Start 10/23/16 at 23:30 Pantoprazole 40 mg 40 mg DAILY@06 IV Last administered on 10/25/16 06:32; Admin Dose 40 MG; Start 10/24/16 at 06:00 Piperacillin Sod/ Tazobactam Sod (Zosyn 3.375gm/ 100 ml (Pmx)) 100 ml @ 200 mls /hr Q6 IVPB Last administered on 10/25/16 12:12; Admin Dose 200 MLS/HR; Start 10/24/16 at 00:00 Miscellaneous Information 1 ea NOTE XX ; Start 10/24/16 at 04:30 Glucose (Glutose) 15 gm Q15M PRN PO DECREASED GLUCOSE; Start 10/24/16 at 04:30 Glucose (Glutose) 22.5 gm Q15M PRN PO DECREASED GLUCOSE; Start 10/24/16 at 04: 30 Dextrose (D50w Syringe) 25 ml Q15M PRN IV DECREASED GLUCOSE; Start 10/24/16 at 04:30 Dextrose (D50w Syringe) 50 ml Q15M PRN IV DECREASED GLUCOSE; Start 10/24/16 at 04:30 Glucagon (Glucagen) 1 mg Q15M PRN IM DECREASED GLUCOSE; Start 10/24/16 at 04:30 Glucose (Glutose) 15 gm Q15M PRN BUCCAL DECREASED GLUCOSE; Start 10/24/16 at 04 :30 Digoxin (Digoxin) 0.25 mg DAILY@13 PO Last administered on 10/25/16 12:18; Admin Dose 0.25 MG; Start 10/24/16 at 13:00 Ferrous Sulfate (Ferrous Sulfate (Ec)) 325 mg DAILY PO Last administered on 09:26; Admin Dose 325 MG; Start 10/24/16 at 09:00 Multivitamins Therapeutic (Theragran) 1 tab DAILY PO Last administered on 09:26; Admin Dose 1 TAB; Start 10/24/16 at 09:00 Polyethylene Glycol (Miralax) 17 gm DAILY PO Last administered on 10/25/16 09: 26; Admin Dose 17 GM; Start 10/24/16 at 09:00 Tramadol HCl (Ultram) 100 mg Q8 PO Last administered on 10/25/16 13:39; Admin Dose 100 MG; Start 10/24/16 at 14:00 Chlorhexidine Gluconate (Peridex) 15 ml Q12 MT Last administered on 10/25/16 09:26; Admin Dose 15 ML; Start 10/24/16 at 09:00 Hydralazine HCl (Apresoline) 10 mg Q6H PRN IV SBP>160 Last administered on 10/24 16:31; Admin Dose 10 MG; Start 10/24/16 at 12:30 Furosemide (Lasix) 40 mg DAILY IV Last administered on 10/25/16 09:27; Admin Dose 40 MG; Start 10/25/16 at 09:00 Lisinopril (Zestril) 5 mg DAILY PO Last administered on 10/25/16 09:26; Admin Dose 5 MG; Start 10/25/16 at 09:00 Diagnostic Test (Pha) 1 ea 1 ea 02 XX ; Start 10/24/16 at 15:00 Vancomycin HCl/ Sodium Chloride (Vancocin/NS) 150 ml @ 75 mls/hr Q12H IVPB ; Start 10/25/16 at 16:00 DEJUAN ORTIZ MD, [facility] Oct 25, 2016 15:58
[2016-10-25] MEDS ORDERED: FUROSEMIDE 20 MG INJ IV ONE (16:00)
--- NOTE | 2016-10-25 16:00 | CONS ---
Date/Time of Note Date/Time of Note DATE: 10/25/16 TIME: 15:57 Assessment/Plan Assessment/Plan Additional Assessment/Plan Shortness of breath, likely multifactorial. Acute decompensated systolic congestive heart failure Preserved ejection fraction Possible pneumonia Atrial fibrillation, rate controlled Hypertension Acute on chronic respiratory failure with tracheostomy -Extra dose of IV Lasix this afternoon and switch to p.o. tomorrow. Supplement potassium to maintain above 4.0. Increase lisinopril to twice daily dosing. Consultation Date/Type/Reason Admit Date/Time Oct 23, 2016 at 21:15 Initial Consult Date Type of Consultation: cv 24 HR Interval Summary Free Text/Dictation Feeling better, shortness of breath is less, denies cough Exam/Review of Systems Vital Signs Vitals Vital Signs Date Time Temp Pulse Resp B/P Pulse Ox O2 Delivery O2 Flow Rate FiO2 10/25/16 15:19 97.7 58 16 151/72 98 10/25/16 14:00 Nasal Cannula 5.0 28 Intake and Output 10/24/16 10/24/16 10/25/16 15:00 23:00 07:00 Intake Total 350 ml 500 ml 650 ml Output Total 1250 ml 100 ml Balance 350 ml -750 ml 550 ml Exam No apparent distress Constitutional: alert, oriented Head: normocephalic Neck: other (Tracheostomy) Respiratory: other (Coarse breath sounds bilaterally, no wheezing) Cardiovascular: irregular rhythm, other (S1-S2 heard) Gastrointestinal: bowel sounds, non-tender, soft Extremities: edema Results Result Diagram: 10/25/16 0638 10/25/16 0638 Results 24 hrs Laboratory Tests Test 10/24/16 17:33 10/24/16 21:34 10/25/16 06:38 10/25/16 08:16 Bedside Glucose 131 152 126 White Blood Count 13.4 H Red Blood Count 3.58 L Hemoglobin 9.7 L Hematocrit 30.6 L Mean Corpuscular Volume 85.5 Mean Corpuscular Hemoglobin 27.1 L Mean Corpuscular Hemoglobin Concent 31.7 L Red Cell Distribution Width 15.7 H Platelet Count 232 Mean Platelet Volume 9.9 Neutrophils % 76.4 Lymphocytes % 11.9 L Monocytes % 7.0 Eosinophils % 3.8 Basophils % 0.5 Nucleated Red Blood Cells % 0.0 Neutrophils # 10.2 H Lymphocytes # 1.6 Monocytes # 0.9 Eosinophils # 0.5 Basophils # 0.1 Nucleated Red Blood Cells # 0.0 Sodium Level 134 L Potassium Level 3.5 Chloride Level 102 Carbon Dioxide Level 29 Anion Gap 7 L Blood Urea Nitrogen 18 Creatinine 1.12 Glucose Level 105 Calcium Level 9.0 Phosphorus Level 3.4 Magnesium Level 2.0 Total Bilirubin 0.2 Direct Bilirubin 0.00 Indirect Bilirubin 0.2 Aspartate Amino Transf (AST/SGOT) 19 Alanine Aminotransferase (ALT/SGPT) 25 Alkaline Phosphatase 105 Total Protein 6.1 Albumin 3.0 L Globulin 3.10 Albumin/Globulin Ratio 0.96 Digoxin Level 0.9 L Test 10/25/16 11:50 10/25/16 12:11 Vancomycin Level Trough 18.7 Bedside Glucose 201 Medications Medications Current Medications Lorazepam (Ativan) 0.5 mg Q6H PRN IV ANXIETY; Start 10/23/16 at 23:30 Ondansetron HCl (Zofran Inj) 4 mg Q6H PRN IV NAUSEA AND/OR VOMITING; Start 10/23 at 23:30 Acetaminophen (Tylenol Tab) 650 mg Q6H PRN PO PAIN LEVEL 1-3 OR FEVER; Start at 23:30 Morphine Sulfate (morphine) 2 mg Q4H PRN IV PAIN LEVEL 7-10; Start 10/23/16 at 23:30 Pantoprazole 40 mg 40 mg DAILY@06 IV Last administered on 10/25/16 06:32; Admin Dose 40 MG; Start 10/24/16 at 06:00 Piperacillin Sod/ Tazobactam Sod (Zosyn 3.375gm/ 100 ml (Pmx)) 100 ml @ 200 mls /hr Q6 IVPB Last administered on 10/25/16 12:12; Admin Dose 200 MLS/HR; Start 10/24/16 at 00:00 Miscellaneous Information 1 ea NOTE XX ; Start 10/24/16 at 04:30 Glucose (Glutose) 15 gm Q15M PRN PO DECREASED GLUCOSE; Start 10/24/16 at 04:30 Glucose (Glutose) 22.5 gm Q15M PRN PO DECREASED GLUCOSE; Start 10/24/16 at 04: 30 Dextrose (D50w Syringe) 25 ml Q15M PRN IV DECREASED GLUCOSE; Start 10/24/16 at 04:30 Dextrose (D50w Syringe) 50 ml Q15M PRN IV DECREASED GLUCOSE; Start 10/24/16 at 04:30 Glucagon (Glucagen) 1 mg Q15M PRN IM DECREASED GLUCOSE; Start 10/24/16 at 04:30 Glucose (Glutose) 15 gm Q15M PRN BUCCAL DECREASED GLUCOSE; Start 10/24/16 at 04 :30 Digoxin (Digoxin) 0.25 mg DAILY@13 PO Last administered on 10/25/16 12:18; Admin Dose 0.25 MG; Start 10/24/16 at 13:00 Ferrous Sulfate (Ferrous Sulfate (Ec)) 325 mg DAILY PO Last administered on 09:26; Admin Dose 325 MG; Start 10/24/16 at 09:00 Multivitamins Therapeutic (Theragran) 1 tab DAILY PO Last administered on 09:26; Admin Dose 1 TAB; Start 10/24/16 at 09:00 Polyethylene Glycol (Miralax) 17 gm DAILY PO Last administered on 10/25/16 09: 26; Admin Dose 17 GM; Start 10/24/16 at 09:00 Tramadol HCl (Ultram) 100 mg Q8 PO Last administered on 10/25/16 13:39; Admin Dose 100 MG; Start 10/24/16 at 14:00 Chlorhexidine Gluconate (Peridex) 15 ml Q12 MT Last administered on 10/25/16 09:26; Admin Dose 15 ML; Start 10/24/16 at 09:00 Hydralazine HCl (Apresoline) 10 mg Q6H PRN IV SBP>160 Last administered on 10/24 16:31; Admin Dose 10 MG; Start 10/24/16 at 12:30 Furosemide (Lasix) 40 mg DAILY IV Last administered on 10/25/16 09:27; Admin Dose 40 MG; Start 10/25/16 at 09:00 Lisinopril (Zestril) 5 mg DAILY PO Last administered on 10/25/16 09:26; Admin Dose 5 MG; Start 10/25/16 at 09:00 Diagnostic Test (Pha) 1 ea 1 ea 02 XX ; Start 10/24/16 at 15:00 Vancomycin HCl/ Sodium Chloride (Vancocin/NS) 150 ml @ 75 mls/hr Q12H IVPB ; Start 10/25/16 at 16:00 Nasir Da Silva DO Oct 25, 2016 15:59
[2016-10-25] MEDS: VANCOMYCIN 750 MG in SOD CHLORIDE 0.9% 150 ML IVPB SCH (16:34)
--- NOTE | 2016-10-25 17:41 | PN ---
Date/Time of Note Date/Time of Note DATE: 10/25/16 TIME: 17:39 Assessment/Plan VTE Prophylaxis VTE Prophylaxis Intervention: other (Factor Xa inhibitors.) Lines/Catheters IV C[facility]ter Type (from [facility]): Peripheral IV Urinary Cath still in place: Yes Reason Cath still needed: other (indicate) Assessment/Plan Chief Complaint/Hosp Course 1. Sepsis with underlying aspiration pneumonia. Pancultures have been negative. On empiric antibiotics. The patient remains afebrile. 2. Acute decompensated congestive heart failure. Diastolic dysfunction. Continue diuresis as per cardiology. 3. Atrial fibrillation. Rate controlled. On Xarelto for stroke prophylaxis. 4. Acute on chronic respiratory failure. The patient has a tracheostomy in place. The patient is connected to a T-tube. 5. Essential hypertension. Continue antihypertensives. 6. Type 2 diabetes mellitus. Hemoglobin A1c 5.5. Blood sugars well controlled. 7. Normocytic, hypochromic anemia. Continue iron supplements. 8. Fluids, electrolytes, and nutrition. Mechanical soft diet. 9. DVT prophylaxis. On Xarelto. 10. Gastrointestinal prophylaxis. Proton pump inhibitors. 11. Plan. Continue current management. Plan for discharge the patient back to half-way facility once cleared by consultants. Case discussed with Dr. Smart. Problems: Subjective 24 Hr Interval Summary Free Text/Dictation The patient remains afebrile. Vital signs stable. Exam/Review of Systems Vital Signs Vitals Vital Signs Date Time Temp Pulse Resp B/P Pulse Ox O2 Delivery O2 Flow Rate FiO2 10/25/16 16:37 71 20 99 Aerosol 5.0 28 T Tube 10/25/16 15:19 97.7 151/72 Intake and Output 10/24/16 10/24/16 10/25/16 14:59 22:59 06:59 Intake Total 350 ml 500 ml 650 ml Output Total 1250 ml 100 ml Balance 350 ml -750 ml 550 ml Exam General: Obese 66 year-old male lying in bed in no apparent distress. HEENT: Normocephalic, atraumatic. Eyes: Anicteric sclerae, conjunctivae clear. ENT: Nasal septum midline, oral mucosa moist. Neck supple, no JVD noticed. Respiratory: Bilaterally diminished breath sounds. Scattered rhonchi. Tracheostomy connected to T-tube. Cardiovascular: S1, S2 heard. Grade 2/6 systolic ejection murmur. Irregularly irregular rhythm Abdomen: Soft, nontender, and nondistended. Bowel sounds positive in all 4 quadrants. Genitourinary: Deferred. Extremities: No cyanosis, no clubbing, no edema. Peripheral pulses palpable. Neurologic: Cranial nerves II through XII grossly intact. The patient is awake, alert, and oriented. Skin: Normal skin turgor. No skin rashes. Results Result Diagram: 10/25/16 0638 10/25/16 0638 Results 24 hrs Laboratory Tests Test 10/24/16 21:34 10/25/16 06:38 10/25/16 08:16 10/25/16 11:50 Bedside Glucose 152 126 White Blood Count 13.4 H Red Blood Count 3.58 L Hemoglobin 9.7 L Hematocrit 30.6 L Mean Corpuscular Volume 85.5 Mean Corpuscular Hemoglobin 27.1 L Mean Corpuscular Hemoglobin Concent 31.7 L Red Cell Distribution Width 15.7 H Platelet Count 232 Mean Platelet Volume 9.9 Neutrophils % 76.4 Lymphocytes % 11.9 L Monocytes % 7.0 Eosinophils % 3.8 Basophils % 0.5 Nucleated Red Blood Cells % 0.0 Neutrophils # 10.2 H Lymphocytes # 1.6 Monocytes # 0.9 Eosinophils # 0.5 Basophils # 0.1 Nucleated Red Blood Cells # 0.0 Sodium Level 134 L Potassium Level 3.5 Chloride Level 102 Carbon Dioxide Level 29 Anion Gap 7 L Blood Urea Nitrogen 18 Creatinine 1.12 Glucose Level 105 Calcium Level 9.0 Phosphorus Level 3.4 Magnesium Level 2.0 Total Bilirubin 0.2 Direct Bilirubin 0.00 Indirect Bilirubin 0.2 Aspartate Amino Transf (AST/SGOT) 19 Alanine Aminotransferase (ALT/SGPT) 25 Alkaline Phosphatase 105 Total Protein 6.1 Albumin 3.0 L Globulin 3.10 Albumin/Globulin Ratio 0.96 Digoxin Level 0.9 L Vancomycin Level Trough 18.7 Test 10/25/16 12:11 10/25/16 16:47 Bedside Glucose 201 168 Medications Medications Current Medications Lorazepam (Ativan) 0.5 mg Q6H PRN IV ANXIETY; Start 10/23/16 at 23:30 Ondansetron HCl (Zofran Inj) 4 mg Q6H PRN IV NAUSEA AND/OR VOMITING; Start 10/23 at 23:30 Acetaminophen (Tylenol Tab) 650 mg Q6H PRN PO PAIN LEVEL 1-3 OR FEVER; Start at 23:30 Morphine Sulfate (morphine) 2 mg Q4H PRN IV PAIN LEVEL 7-10; Start 10/23/16 at 23:30 Pantoprazole 40 mg 40 mg DAILY@06 IV Last administered on 10/25/16 06:32; Admin Dose 40 MG; Start 10/24/16 at 06:00 Piperacillin Sod/ Tazobactam Sod (Zosyn 3.375gm/ 100 ml (Pmx)) 100 ml @ 200 mls /hr Q6 IVPB Last administered on 10/25/16 12:12; Admin Dose 200 MLS/HR; Start 10/24/16 at 00:00 Miscellaneous Information 1 ea NOTE XX ; Start 10/24/16 at 04:30 Glucose (Glutose) 15 gm Q15M PRN PO DECREASED GLUCOSE; Start 10/24/16 at 04:30 Glucose (Glutose) 22.5 gm Q15M PRN PO DECREASED GLUCOSE; Start 10/24/16 at 04: 30 Dextrose (D50w Syringe) 25 ml Q15M PRN IV DECREASED GLUCOSE; Start 10/24/16 at 04:30 Dextrose (D50w Syringe) 50 ml Q15M PRN IV DECREASED GLUCOSE; Start 10/24/16 at 04:30 Glucagon (Glucagen) 1 mg Q15M PRN IM DECREASED GLUCOSE; Start 10/24/16 at 04:30 Glucose (Glutose) 15 gm Q15M PRN BUCCAL DECREASED GLUCOSE; Start 10/24/16 at 04 :30 Digoxin (Digoxin) 0.25 mg DAILY@13 PO Last administered on 10/25/16 12:18; Admin Dose 0.25 MG; Start 10/24/16 at 13:00 Ferrous Sulfate (Ferrous Sulfate (Ec)) 325 mg DAILY PO Last administered on 09:26; Admin Dose 325 MG; Start 10/24/16 at 09:00 Multivitamins Therapeutic (Theragran) 1 tab DAILY PO Last administered on 09:26; Admin Dose 1 TAB; Start 10/24/16 at 09:00 Polyethylene Glycol (Miralax) 17 gm DAILY PO Last administered on 10/25/16 09: 26; Admin Dose 17 GM; Start 10/24/16 at 09:00 Tramadol HCl (Ultram) 100 mg Q8 PO Last administered on 10/25/16 13:39; Admin Dose 100 MG; Start 10/24/16 at 14:00 Chlorhexidine Gluconate (Peridex) 15 ml Q12 MT Last administered on 10/25/16 09:26; Admin Dose 15 ML; Start 10/24/16 at 09:00 Hydralazine HCl (Apresoline) 10 mg Q6H PRN IV SBP>160 Last administered on 10/24 16:31; Admin Dose 10 MG; Start 10/24/16 at 12:30 Diagnostic Test (Pha) 1 ea 1 ea 02 XX ; Start 10/24/16 at 15:00 Vancomycin HCl/ Sodium Chloride (Vancocin/NS) 150 ml @ 75 mls/hr Q12H IVPB Last administered on 10/25/16 16:34; Admin Dose 75 MLS/HR; Start 10/25/16 at 16 :00 Lisinopril (Zestril) 5 mg BID PO ; Start 10/25/16 at 21:00 AMISHA NUR NP Oct 25, 2016 17:40
[2016-10-25] MEDS: RIVAROXABAN 15 MG TABLET PO SCH (18:16)
[2016-10-25] MEDS: LISINOPRIL 5 MG TAB PO SCH (21:18)
[2016-10-26] VITALS (11 sets, daily range): BP systolic 128–157; BP diastolic 65–70; PULSE 55–67; RESP 16–22
[2016-10-26] MEDS: PIPER-TAZO 3.375 GM IV (PMX) 100 ML IVPB SCH ×4 (00:12→18:00)
[2016-10-26] MEDS: ACCUCHECK 2 AM XX SCH (02:00)
[2016-10-26] MEDS: VANCOMYCIN 750 MG in SOD CHLORIDE 0.9% 150 ML IVPB SCH (05:02)
[2016-10-26] MEDS: PANTOPRAZOLE 40 MG INJ IV SCH (06:15)
[2016-10-26] MEDS: FUROSEMIDE 40 MG TAB PO SCH ×2 (06:15→18:04)
[2016-10-26] MEDS: traMADol 50 MG TAB PO SCH ×2 (06:16→13:59)
[2016-10-26 07:08] LABS: ADD SCAN DIFF NO
[2016-10-26 07:12] LABS: BASOPHIL # 0.1 10^3/ul (0.0-0.1); BASOPHILS % 0.7 % (0.0-2.0); EOSINOPHILS % 7.1 % (0.0-7.0); HEMOGLOBIN 9.7 g/dl (14.0-18.0); LYMPHOCYTES # 1.7 10^3/ul (0.8-2.9); MEAN CORPUSCULAR HEMOGLOBIN 26.8 pg (29.0-33.0); MEAN CORPUSCULAR HGB CONC 31.3 g/dl (32.0-37.0); MEAN CORPUSCULAR VOLUME 85.6 fl (82.0-101.0); MEAN PLATELET VOLUME 9.7 fl (7.4-10.4); MONOCYTE # 1.1 10^3/ul (0.3-0.9); MONOCYTES % 8.1 % (0.0-11.0); NEUTROPHIL # 9.8 10^3/ul (1.6-7.5); NEUTROPHILS % 71.6 % (39.0-77.0); PLATELET COUNT 218 10^3/UL (140-415); RED BLOOD COUNT 3.62 10^6/ul (4.70-6.10); RED CELL DISTRIBUTION WIDTH 15.6 % (11.5-14.5); WHITE BLOOD COUNT 13.7 10^3/ul (4.8-10.8)
[2016-10-26 07:40] LABS: CALCIUM 8.8 mg/dl (8.4-10.2); CREATININE 1.35 mg/dl (0.61-1.24); POTASSIUM 3.9 mmol/L (3.5-5.1)
[2016-10-26] MEDS: Insulin NOVOLOG SS MODERATE Algorithm (SS with meals and bedtime) SC SCH ×3 (08:00→18:51)
[2016-10-26] MEDS: CHLORHEXIDINE GLUCONATE 15 ML UD CUP MT SCH (08:17)
[2016-10-26] MEDS: SUCRALFATE 1 GM TAB PO SCH (08:17)
[2016-10-26] MEDS: FERROUS SULFATE (EC) 325 MG TAB PO SCH (08:17)
[2016-10-26] MEDS: MULTIVITAMINS THERAPEUTIC TAB PO SCH (08:18)
[2016-10-26] MEDS: LISINOPRIL 5 MG TAB PO SCH (08:18)
[2016-10-26] MEDS: POLYETHYLENE GLYCOL 17 GM PACKET PO SCH (08:19)
--- NOTE | 2016-10-26 11:17 | CONS ---
Date/Time of Note Date/Time of Note DATE: 10/26/16 TIME: 11:15 Assessment/Plan Assessment/Plan Additional Assessment/Plan Shortness of breath, likely multifactorial. Acute decompensated systolic congestive heart failure Preserved ejection fraction Possible pneumonia Atrial fibrillation, rate controlled Hypertension Acute on chronic respiratory failure with tracheostomy -Blood pressure trend slightly better, continue diuretics as renal function permits and decrease to daily over the next few days if continues to improve. Her blood pressure still not well controlled, would increase dose of lisinopril. Consultation Date/Type/Reason Admit Date/Time Oct 23, 2016 at 21:15 Type of Consultation: cv 24 HR Interval Summary Free Text/Dictation Feeling better, less shortness of breath, denies cough Exam/Review of Systems Vital Signs Vitals Vital Signs Date Time Temp Pulse Resp B/P Pulse Ox O2 Delivery O2 Flow Rate FiO2 10/26/16 08:36 55 10/26/16 07:50 97.8 16 157/67 99 10/26/16 05:48 Aerosol 5.0 28 T Tube Intake and Output 10/25/16 10/25/16 10/26/16 15:00 23:00 07:00 Intake Total 1300 ml 650 ml Output Total 2450 ml 2500 ml Balance -1150 ml -1850 ml Exam No apparent distress Constitutional: alert, obese, oriented Head: normocephalic Neck: other (Tracheostomy) Respiratory: other (Coarse breath sounds bilaterally, no wheezing) Cardiovascular: irregular rhythm, other (S1-S2 heard) Gastrointestinal: bowel sounds, non-tender, soft Extremities: edema Results Result Diagram: 10/26/16 0646 10/26/16 0641 Results 24 hrs Laboratory Tests Test 10/25/16 11:50 10/25/16 12:11 10/25/16 16:47 10/25/16 20:22 Vancomycin Level Trough 18.7 Bedside Glucose 201 168 173 Test 10/26/16 06:41 10/26/16 06:46 10/26/16 06:49 10/26/16 08:15 Sodium Level 133 L Potassium Level 3.9 Chloride Level 101 Carbon Dioxide Level 31 Anion Gap 5 L Blood Urea Nitrogen 19 Creatinine 1.35 H Glucose Level 126 Calcium Level 8.8 White Blood Count 13.7 H Red Blood Count 3.62 L Hemoglobin 9.7 L Hematocrit 31.0 L Mean Corpuscular Volume 85.6 Mean Corpuscular Hemoglobin 26.8 L Mean Corpuscular Hemoglobin Concent 31.3 L Red Cell Distribution Width 15.6 H Platelet Count 218 Mean Platelet Volume 9.7 Neutrophils % 71.6 Lymphocytes % 12.0 L Monocytes % 8.1 Eosinophils % 7.1 H Basophils % 0.7 Nucleated Red Blood Cells % 0.0 Neutrophils # 9.8 H Lymphocytes # 1.7 Monocytes # 1.1 H Eosinophils # 1.0 H Basophils # 0.1 Nucleated Red Blood Cells # 0.0 Magnesium Level 1.8 Bedside Glucose 120 Medications Medications Current Medications Lorazepam (Ativan) 0.5 mg Q6H PRN IV ANXIETY; Start 10/23/16 at 23:30 Ondansetron HCl (Zofran Inj) 4 mg Q6H PRN IV NAUSEA AND/OR VOMITING; Start 10/23 at 23:30 Acetaminophen (Tylenol Tab) 650 mg Q6H PRN PO PAIN LEVEL 1-3 OR FEVER; Start at 23:30 Morphine Sulfate (morphine) 2 mg Q4H PRN IV PAIN LEVEL 7-10; Start 10/23/16 at 23:30 Pantoprazole 40 mg 40 mg DAILY@06 IV Last administered on 10/26/16t 06:15; Admin Dose 40 MG; Start 10/24/16 at 06:00 Piperacillin Sod/ Tazobactam Sod (Zosyn 3.375gm/ 100 ml (Pmx)) 100 ml @ 200 mls /hr Q6 IVPB Last administered on 10/26/16t 06:15; Admin Dose 200 MLS/HR; Start 10/24/16 at 00:00 Miscellaneous Information 1 ea NOTE XX ; Start 10/24/16 at 04:30 Glucose (Glutose) 15 gm Q15M PRN PO DECREASED GLUCOSE; Start 10/24/16 at 04:30 Glucose (Glutose) 22.5 gm Q15M PRN PO DECREASED GLUCOSE; Start 10/24/16 at 04: 30 Dextrose (D50w Syringe) 25 ml Q15M PRN IV DECREASED GLUCOSE; Start 10/24/16 at 04:30 Dextrose (D50w Syringe) 50 ml Q15M PRN IV DECREASED GLUCOSE; Start 10/24/16 at 04:30 Glucagon (Glucagen) 1 mg Q15M PRN IM DECREASED GLUCOSE; Start 10/24/16 at 04:30 Glucose (Glutose) 15 gm Q15M PRN BUCCAL DECREASED GLUCOSE; Start 10/24/16 at 04 :30 Digoxin (Digoxin) 0.25 mg DAILY@13 PO Last administered on 10/25/16 12:18; Admin Dose 0.25 MG; Start 10/24/16 at 13:00 Ferrous Sulfate (Ferrous Sulfate (Ec)) 325 mg DAILY PO Last administered on 08:17; Admin Dose 325 MG; Start 10/24/16 at 09:00 Multivitamins Therapeutic (Theragran) 1 tab DAILY PO Last administered on 08:18; Admin Dose 1 TAB; Start 10/24/16 at 09:00 Polyethylene Glycol (Miralax) 17 gm DAILY PO Last administered on 10/26/16 08: 19; Admin Dose 17 GM; Start 10/24/16 at 09:00 Tramadol HCl (Ultram) 100 mg Q8 PO Last administered on 10/26/16 06:16; Admin Dose 100 MG; Start 10/24/16 at 14:00 Chlorhexidine Gluconate (Peridex) 15 ml Q12 MT Last administered on 10/26/16 08:17; Admin Dose 15 ML; Start 10/24/16 at 09:00 Hydralazine HCl (Apresoline) 10 mg Q6H PRN IV SBP>160 Last administered on 10/24 16:31; Admin Dose 10 MG; Start 10/24/16 at 12:30 Diagnostic Test (Pha) (Accu-Chek) 1 ea 02 XX ; Start 10/24/16 at 15:00 Lisinopril 5 mg 5 mg BID PO Last administered on 10/26/16 08:18; Admin Dose 5 MG; Start 10/25/16 at 21:00 Vancomycin HCl/ Sodium Chloride (Vancocin/NS) 250 ml @ 83.333 mls/ hr Q24H IVPB ; Start 10/26/16 at 21:00 Nasir Da Silva DO Oct 26, 2016 11:17
[2016-10-26] MEDS ORDERED: MAGNESIUM SULFATE 2 GM/50 ML 50 ML IVPB ONE (11:30)
[2016-10-26] MEDS: DIGOXIN 0.25 MG TAB PO SCH (12:25)
--- NOTE | 2016-10-26 13:39 | PDOCDIS ---
Discharge Instructions DIAGNOSIS Discharge Diagnosis Sepsis. CHF exacerbation. CONDITION Patient Condition: Stable HOME CARE INSTRUCTIONS: Special Diet: mech soft OTHER ORDERS: Other Orders: 1. Take medications as per prescription. 2. Mechanical soft diet. 3. Follow-up with your primary care physician in 1 week. AMISHA NUR NP Oct 26, 2016 13:39
[2016-10-26] MEDS ORDERED: FURO40TA4 PO (13:43)
[2016-10-26] MEDS ORDERED: LISI-313 PO (13:43)
[2016-10-26] MEDS ORDERED: LEVO500T72 PO (13:44)
--- NOTE | 2016-10-26 14:48 | CONS ---
Date/Time of Note Date/Time of Note DATE: 10/26/16 TIME: 14:46 Consult Date/Type/Reason Admit Date/Time Oct 23, 2016 at 21:15 Initial Consult Date 10/25/16 Type of Consultation: Pulmonary Subjective Patient comfortable this morning no new events breathing is better decreased secretions Objective Vital Signs Date Time Temp Pulse Resp B/P Pulse Ox O2 Delivery O2 Flow Rate FiO2 10/26/16 12:19 57 10/26/16 11:16 97.6 20 128/65 97 10/26/16 10:30 Venti Mask 5.0 10/26/16 05:48 28 Intake and Output 10/25/16 10/25/16 10/26/16 14:59 22:59 06:59 Intake Total 1300 ml 650 ml Output Total 2450 ml 2500 ml Balance -1150 ml -1850 ml Exam GENERAL: Chronically ill-appearing gentleman comfortable at rest tracheostomy in place awake and alert VITAL SIGNS: per chart NECK: Supple. No JVD or lymphadenopathy. CARDIAC EXAM: S1, S2. No added sounds or murmurs. CHEST: clear bilaterally, No added sounds, rales or wheezes ABDOMEN: Soft, nontender. No guarding or rebound. EXTREMITIES: No cyanosis, clubbing or edema. NEUROLOGIC: Generalized weakness. No focal deficits. Results/Medications Result Diagram: 10/26/16 0646 10/26/16 0641 Results 24 hrs Laboratory Tests Test 10/25/16 16:47 10/25/16 20:22 10/26/16 06:41 10/26/16 06:46 Bedside Glucose 168 173 Sodium Level 133 L Potassium Level 3.9 Chloride Level 101 Carbon Dioxide Level 31 Anion Gap 5 L Blood Urea Nitrogen 19 Creatinine 1.35 H Glucose Level 126 Calcium Level 8.8 White Blood Count 13.7 H Red Blood Count 3.62 L Hemoglobin 9.7 L Hematocrit 31.0 L Mean Corpuscular Volume 85.6 Mean Corpuscular Hemoglobin 26.8 L Mean Corpuscular Hemoglobin Concent 31.3 L Red Cell Distribution Width 15.6 H Platelet Count 218 Mean Platelet Volume 9.7 Neutrophils % 71.6 Lymphocytes % 12.0 L Monocytes % 8.1 Eosinophils % 7.1 H Basophils % 0.7 Nucleated Red Blood Cells % 0.0 Neutrophils # 9.8 H Lymphocytes # 1.7 Monocytes # 1.1 H Eosinophils # 1.0 H Basophils # 0.1 Nucleated Red Blood Cells # 0.0 Test 10/26/16 06:49 10/26/16 08:15 10/26/16 12:18 Magnesium Level 1.8 Bedside Glucose 120 145 Medications Current Medications Lorazepam (Ativan) 0.5 mg Q6H PRN IV ANXIETY; Start 10/23/16 at 23:30 Ondansetron HCl (Zofran Inj) 4 mg Q6H PRN IV NAUSEA AND/OR VOMITING; Start 10/23 at 23:30 Acetaminophen (Tylenol Tab) 650 mg Q6H PRN PO PAIN LEVEL 1-3 OR FEVER; Start at 23:30 Morphine Sulfate (morphine) 2 mg Q4H PRN IV PAIN LEVEL 7-10; Start 10/23/16 at 23:30 Pantoprazole 40 mg 40 mg DAILY@06 IV Last administered on 10/26/16 06:15; Admin Dose 40 MG; Start 10/24/16 at 06:00 Piperacillin Sod/ Tazobactam Sod (Zosyn 3.375gm/ 100 ml (Pmx)) 100 ml @ 200 mls /hr Q6 IVPB Last administered on 10/26/16 06:15; Admin Dose 200 MLS/HR; Start 10/24/16 at 00:00 Miscellaneous Information 1 ea NOTE XX ; Start 10/24/16 at 04:30 Glucose (Glutose) 15 gm Q15M PRN PO DECREASED GLUCOSE; Start 10/24/16 at 04:30 Glucose (Glutose) 22.5 gm Q15M PRN PO DECREASED GLUCOSE; Start 10/24/16 at 04: 30 Dextrose (D50w Syringe) 25 ml Q15M PRN IV DECREASED GLUCOSE; Start 10/24/16 at 04:30 Dextrose (D50w Syringe) 50 ml Q15M PRN IV DECREASED GLUCOSE; Start 10/24/16 at 04:30 Glucagon (Glucagen) 1 mg Q15M PRN IM DECREASED GLUCOSE; Start 10/24/16 at 04:30 Glucose (Glutose) 15 gm Q15M PRN BUCCAL DECREASED GLUCOSE; Start 10/24/16 at 04 :30 Digoxin (Digoxin) 0.25 mg DAILY@13 PO Last administered on 10/26/16 12:25; Admin Dose 0.25 MG; Start 10/24/16 at 13:00 Ferrous Sulfate (Ferrous Sulfate (Ec)) 325 mg DAILY PO Last administered on 08:17; Admin Dose 325 MG; Start 10/24/16 at 09:00 Multivitamins Therapeutic (Theragran) 1 tab DAILY PO Last administered on 08:18; Admin Dose 1 TAB; Start 10/24/16 at 09:00 Polyethylene Glycol (Miralax) 17 gm DAILY PO Last administered on 10/26/16 08: 19; Admin Dose 17 GM; Start 10/24/16 at 09:00 Tramadol HCl (Ultram) 100 mg Q8 PO Last administered on 10/26/16 13:59; Admin Dose 100 MG; Start 10/24/16 at 14:00 Chlorhexidine Gluconate (Peridex) 15 ml Q12 MT Last administered on 10/26/16 08:17; Admin Dose 15 ML; Start 10/24/16 at 09:00 Hydralazine HCl (Apresoline) 10 mg Q6H PRN IV SBP>160 Last administered on 10/24 16:31; Admin Dose 10 MG; Start 10/24/16 at 12:30 Diagnostic Test (Pha) (Accu-Chek) 1 ea 02 XX ; Start 10/24/16 at 15:00 Lisinopril 5 mg 5 mg BID PO Last administered on 10/26/16 08:18; Admin Dose 5 MG; Start 10/25/16 at 21:00 Vancomycin HCl/ Sodium Chloride (Vancocin/NS) 250 ml @ 83.333 mls/ hr Q24H IVPB ; Start 10/26/16 at 21:00 Assessment/Plan Chief Complaint/Hosp Course 66-year-old gentleman with a history of respiratory failure with tracheostomy, came in from halfway for evaluation of dislodged tracheostomy and fever shortness of breath. On admission was found to have elevated white blood cell count and chest x-ray suggestive of congestive cardiac failure. In addition he has had copious oral secretions. Remains awake and alert comfortable at rest no acute distress. Problems: Additional Assessment/Plan 1. Dislodged tracheostomy tube replaced in the emergency room, Shiley size 8 cuff less. Will downsized to Shiley 6 2. Likely tracheobronchitis as cause of fever and leukocytosis 3. Mild congestive cardiac failure with underlying history of cardiomyopathy 4. Acute on chronic hypoxemic respiratory failure 5. Diabetes mellitus Plan 1. Continue tracheostomy care 2. Complete antibiotics of Zosyn and vancomycin 7 days total 3. Pulmonary toilet 4. Aspiration precautions currently on p.o. diet Discharge back to congregate living. DEJUAN ORTIZ MD, [facility] Oct 26, 2016 14:48
[2016-10-26] MEDS ORDERED: BARIUM SULFATE 135 ML (E-Z HD) PO ONE (15:40)
--- NOTE | 2016-10-26 16:50 | DS ---
Date/Time of Note Date/Time of Note DATE: 10/26/16 TIME: 16:47 Discharge Summary Admission/Discharge Info Admit Date/Time Oct 23, 2016 at 21:15 Discharge Date/Time Discharge Diagnosis 1. Status post sepsis with underlying aspiration pneumonia. 2. Acute decompensated congestive heart failure. Diastolic dysfunction. 3. Atrial fibrillation. Rate controlled. 4. Acute on chronic respiratory failure. 5. Essential hypertension. 6. Type 2 diabetes mellitus. Hemoglobin A1c 5.5. 7. Normocytic, hypochromic anemia. 8. Dysphagia. 9. Pulmonary hypertension. 10. Chronic bedridden status. Patient Condition: Stable Consults 1. Eric Garcia MD, Pulmonology. 2. Nasir Da Silva DO, Cardiology. Procedures CXR IMPRESSION: 1. Distal tip of the tracheostomy in good radiographic position. 2. Cardiac silhouette enlargement with diffuse pulmonary vascular congestion and bilateral pleural effusions concerning for congestive heart failure. 3. Aortic atherosclerosis is present. Hx of Present Illness 66-year-old man brought in by EMS from [facility] for respiratory distress and hypoxia. Nurses were attempting to suction his tracheostomy tube and the tracheostomy tube became dislodged and they had difficulty replacing it, patient developed cyanosis and respiratory distress. EMS was called and they cut the tip of the tracheostomy tube and placed it back in and symptoms improved. Patient was transported here without further complications. Patient had a fever today, he has had no chest pain, and is asymptomatic now. HPI was supplemented by reviewing past medical history, [facility] records, speaking to EMS, and nursing staff. Hospital Course The patient was admitted to inpatient telemetry floor. Cardiology and pulmonology consult was obtained. Pancultures were ordered. The patient's blood cultures remained negative. The patient's chest x-ray showed pulmonary vascular congestion with bilateral pleural effusions. The patient was empirically treated for any underlying aspiration pneumonia versus acute tracheobronchitis. The patient had his tracheostomy tube dislodged prior to arrival to the emergency room. The patient's tracheostomy tube was replaced by the emergency room physician. The patient's tracheostomy tube was later downsized to Shiley #6. The patient has underlying decompensated congestive heart failure, diastolic dysfunction. Patient was started on diuretics with improvement the patient's symptoms. The patient also has underlying atrial fibrillation. The patient's heart rate was controlled. The patient was maintained on Xarelto for stroke prophylaxis. The patient has underlying essential hypertension. He was maintained on antihypertensives for the same. The patient has history of type 2 diabetes mellitus. However the patient's hemoglobin A1c was found to be 5.5. The patient was maintained on sliding scale insulin. The patient hardly required any insulin coverage during the hospital course. The patient will be discharged off any antidiabetic medications. The patient has underlying normocytic, hypochromic anemia. The patient was maintained on iron supplements. The patient also has underlying dysphagia. The patient was evaluated by speech therapy. The patient was maintained on a mechanical soft diet. The patient was maintained on aspiration precautions. The patient also underwent a video swallow evaluation on 10/26/2016 and the results of this are pending at this time. The patient had a stable hospital course. The patient remained afebrile for more than 48 hours. The patient is stable to be discharged back, to be continued on oral antibiotics. The patient lives in a congregate living facility. Discharge Instructions 1. Take medications as per prescription. 2. Mechanical soft diet. 3. Follow-up with your primary care physician in 1 week. 4. Aspiration precautions. Case discussed with Dr. Smart. Home Meds Active Scripts Levofloxacin* (Levaquin*) 500 Mg Tablet, 500 MG PO DAILY for 7 Days, TAB Prov:AMISHA NUR CLIENT SALES AND SERVICE OFFICER 10/26/16 Furosemide* (Furosemide*) 40 Mg Tablet, 40 MG PO BID DIURETICS for 30 Days, TAB Prov:AMISHA NUR CLIENT SALES AND SERVICE OFFICER 10/26/16 Lisinopril* (Lisinopril*) 5 Mg Tablet, 5 MG PO BID for 30 Days, TAB Prov:AMISHA NUR CLIENT SALES AND SERVICE OFFICER 10/26/16 Reported Medications Multivitamins* (Multivitamins*) 1 Each Tablet, 1 TAB PO DAILY, TAB 10/24/16 Chlorhexidine Gluconate* (Chlorhexidine Gluconate*) 118 Ml Liquid, 15 ML TOP Q12 , ML 10/24/16 Albuterol Sulfate* (Albuterol Sulfate* Neb) 0.083%-3 Ml Neb, 2.5 MG PE NEB Q6H Y for WHEEZING AND SOB, #30 VIAL 10/24/16 Ipratropium-Albuterol (Ipratropium-Albuterol) 0.5-3 Mg/3 Ml Ampul.neb, 3 ML INHALATION Q4 Y for SHORTNESS OF BREATH, #30 VIAL 10/24/16 Albuterol Sulfate* (Albuterol Sulfate* Neb) 0.083%-3 Ml Neb, 2.5 MG NEB Q4 Y for SHORTNESS OF BREATH, #30 VIAL 10/24/16 Acetaminophen* (Tylenol*) 325 Mg Tablet, 650 MG PO Q4H Y for MILD PAIN LEVEL 1-3 , TAB 10/24/16 Tramadol HCl (Tramadol HCl) 50 Mg Tablet, 100 MG PO Q8, #120 TAB 10/24/16 Sucralfate (Carafate) 1 Gm Tablet, 1 GM PO AC BREAKFAST BEDTIME, TAB 10/24/16 Rivaroxaban* (Xarelto*) 15 Mg Tablet, 15 MG PO WITH DINNER, TAB 10/24/16 Pantoprazole (Protonix) 40 Mg Tabec, 40 MG PO DAILY, TAB 10/24/16 Polyethylene Glycol* (Miralax*) 17 Gm Powd.pack, 17 GM PO DAILY, #30 PACKET 10/24/16 Ferrous Sulfate* (Ferrous Sulfate*) 325 Mg Tabec, 325 MG PO DAILY, TAB 10/24/16 Digoxin* (Lanoxin*) 0.25 Mg Tablet, 0.25 MG PO DAILY, TAB 10/24/16 Cranberry Fruit Concentrate (CRANBERRY) 450 Mg Capsule, 450 MG PO DAILY, CAP 10/24/16 Discontinued Reported Medications Acetaminophen* (Tylenol*) 325 Mg Tablet, 650 MG PO Q4H Y for MILD PAIN LEVEL 1-3 , TAB 10/24/16 Follow-up Plan Follow-up with your primary care physician 1 week. Primary Care Provider Tay Friedman MD Time spent on discharge: > 30 minutes Pending Labs Laboratory Tests Test 10/25/16 20:22 10/26/16 06:41 10/26/16 06:46 10/26/16 06:49 Bedside Glucose 173mg/dL (70-220) Sodium Level 133mmol/L (135-144) Potassium Level 3.9mmol/L (3.5-5.1) Chloride Level 101mmol/L (97-110) Carbon Dioxide Level 31mmol/L (21-31) Anion Gap 5 (8-16) Blood Urea Nitrogen 19mg/dl (7-20) Creatinine 1.35mg/dl (0.61-1.24) Glucose Level 126mg/dl (70-220) Calcium Level 8.8mg/dl (8.4-10.2) White Blood Count 13.710^3/ul (4.8-10.8) Red Blood Count 3.6210^6/ul (4.70-6.10) Hemoglobin 9.7g/dl (14.0-18.0) Hematocrit 31.0% (42.0-52.0) Mean Corpuscular Volume 85.6fl (82.0-101.0) Mean Corpuscular Hemoglobin 26.8pg (29.0-33.0) Mean Corpuscular Hemoglobin Concent 31.3g/dl (32.0-37.0) Red Cell Distribution Width 15.6% (11.5-14.5) Platelet Count 72949^3/UL (140-415) Mean Platelet Volume 9.7fl (7.4-10.4) Neutrophils % 71.6% (39.0-77.0) Lymphocytes % 12.0% (15.0-51.0) Monocytes % 8.1% (0.0-11.0) Eosinophils % 7.1% (0.0-7.0) Basophils % 0.7% (0.0-2.0) Nucleated Red Blood Cells % 0.0/100WBC (0.0-0.0) Neutrophils # 9.810^3/ul (1.6-7.5) Lymphocytes # 1.710^3/ul (0.8-2.9) Monocytes # 1.110^3/ul (0.3-0.9) Eosinophils # 1.010^3/ul (0.0-0.5) Basophils # 0.110^3/ul (0.0-0.1) Nucleated Red Blood Cells # 0.010^3/ul (0.0-0.0) Magnesium Level 1.8mg/dl (1.7-2.5) Test 10/26/16 08:15 10/26/16 12:18 Bedside Glucose 120mg/dL (70-220) 145mg/dL (70-220) AMISHA NUR NP Oct 26, 2016 16:50
[2016-10-26] MEDS: RIVAROXABAN 15 MG TABLET PO SCH (18:02)
--- NOTE | 2016-10-26 18:04 | RADRPT ---
PROCEDURE: Video-fluoroscopy swallowing study. CLINICAL INDICATION: Dysphagia. TECHNIQUE: Fluoroscopic guided video swallowing study was done in conjunction with the speech ther apist. The study was confined to the oral, pharyngeal, and cervical phases of the swallowing mechani sm. 1.7 minutes of fluoroscopy time was used. 24 series of images were obtained. COMPARISON: No prior study is available for comparison. FINDINGS: There is penetration with thin liquids. There is no aspiration. IMPRESSION: 1. Penetration. No aspiration during swallowing. 2. Please refer to the speech therapist's recommendations for future feedings. RPTAT: QQ .Benson Henderson MD, MD Date Time Electronically viewed and signed by .Benson Henderson MD, MD on 10/26/2016 18:03 .R/
[2016-10-26] MEDS ORDERED: VANCOMYCIN 1.25 GM in SOD CHLORIDE 0.9% 250 ML IVPB SCH (21:00)
== END 2016-10-26 21:25 | disposition home or self-care (01) | DRG 871 ==
LOC: E/R 18:59 → MS4 21:15
PROVIDERS: ADMIT Family Medicine; ATTEND Family Medicine
PROC: 0B21XFZ Change Tracheostomy Device in Trachea, External Approach (ICD-10-PCS; principal; 2016-10-23)
PROC: 5A1935Z Respiratory Ventilation, Less than 24 Consecutive Hours (ICD-10-PCS; 2016-10-23)
DX: A41.9 Sepsis, unspecified organism (principal); J69.0 Pneumonitis due to inhalation of food and vomit; J96.21 Acute and chronic respiratory failure with hypoxia; I50.23 Acute on chronic systolic (congestive) heart failure; Z43.0 Encounter for attention to tracheostomy; I42.8 Other cardiomyopathies; I42.9 Cardiomyopathy, unspecified; I13.0 Hypertensive heart and chronic kidney disease with heart failure and stage 1 through stage 4 chronic kidney disease, or unspecified chronic kidney disease; I48.91 Unspecified atrial fibrillation; E11.22 Type 2 diabetes mellitus with diabetic chronic kidney disease; N18.9 Chronic kidney disease, unspecified; D50.9 Iron deficiency anemia, unspecified; Z79.01 Long term (current) use of anticoagulants; G47.33 Obstructive sleep apnea (adult) (pediatric); J44.9 Chronic obstructive pulmonary disease, unspecified; Z87.891 Personal history of nicotine dependence; R13.10 Dysphagia, unspecified; I27.2 Other secondary pulmonary hypertension
CPT/HCPCS: 36415; 71010; 74230; 80048; 80053; 80061; 80162; 80202; 81001; 82962; 83036; 83605; 83690; 83735; 83880; 84100; 84443; 84484; 85025; 85610; 85730; 87040; 87081; 87086; 92611; 93005; 93306; 94002; 94664; 96374; J1940; C9113; J0360; J0692; J1644; J1815; J2543; J3370; J3475; J7030; J7050

== ENCOUNTER 2018-07-18 14:27 | Inpatient (IN) | payer MEDICARE, MEDICAID ==
[~2018-07-18] VITALS: Ht 170.2 cm; Wt 97.0 kg
[~2018-07-18 14:27] MED LIST: ACET325T33 PO; ALBU2.5V3 NEB; CHLO118L3 TOP; CRAN450C PO; DIGO250T6 PO; FER325 PO; FURO40TA4 PO; IPRA3AMP29 INHALATION; LEVO500T48 PO; LISI-313 PO; MULT1TAB59 PO; PANT40TA4 PO; POLY17PO6 PO; RIVA15TA PO; SUCR1TAB35 PO; TRAM50TA2 PO
--- NOTE | 2018-07-18 14:36 | ERD ---
ER Documentation Chief Complaint Chief Complaint HPI 68-year-old male sent from his congregate living for hypoxia. Patient has a his tory of chronic respiratory failure with hypoxia and tracheostomy, diabetes, CKD stage I, cardiomyopathy, morbid obesity, and atrial fibrillation. Patient is complaining of some chest discomfort and shortness of breath even on the vent here. No history of fevers and chills. Otherwise history is unavailable as the patient does not have a speaking valve ROS Somewhat limited as the patient is nonverbal and does not have a speaking valve Medications Home Meds Reported Medications Insulin Aspart* (Novolog Insulin Pen*) 100 Unit/Ml Soln, 0 SC .SLIDING SCALE AC, EA OR 5 UNITS AC MEALS TID 07/18/18 Insulin Glargine,Hum.rec.anlog (Basaglar Kwikpen U-100) 100 Unit/1 Ml Insuln.pen, 28 UNIT SC QHS, EA 07/18/18 Insulin Glargine,Hum.rec.anlog (Basaglar Kwikpen U-100) 100 Unit/1 Ml Insuln.pen, 18 UNIT SC QAM, EA 07/18/18 Acetaminophen* (Acetaminophen*) 500 MG Extra Strength Tablet, 1000 MG PO Q8H PRN for PAIN, TAB 07/18/18 Acetaminophen* (Tylenol*) 325 Mg Tablet, 650 MG PO Q4H PRN for MILD PAIN LEVEL 1-3, TAB AND FEVER 07/18/18 Ascorbic Acid (Vitamin C) 500 Mg Tab, 500 MG PO DAILY, TAB 07/18/18 Lorazepam* (Lorazepam*) 1 Mg Tablet, 1 MG PO Q6 PRN for ANXIETY, #60 TAB 07/18/18 Sucralfate* (Carafate*) 1 Gm Tab, 1 GM PO AC MEALS AND BEDTIME, TAB 07/18/18 Rivaroxaban* (Xarelto*) 15 Mg Tablet, 15 MG PO WITH DINNER, TAB 07/18/18 Multivitamin with Minerals (Multivitamins with Minerals) 1 Each Tablet, 1 EACH PO DAILY, TAB 07/18/18 Pantoprazole* (Pantoprazole*) 40 Mg Tablet.dr, 40 MG PO AC BREAKFAST, TAB 07/18/18 Polyethylene Glycol* (Miralax*) 17 Gm Powd.pack, 17 GM PO DAILY, #30 PACKET 07/18/18 Ferrous Sulfate* (Ferrous Sulfate*) 325 Mg Tabec, 325 MG PO DAILY, TAB 07/18/18 Digoxin* (Digitek*) 250 Mcg Tablet, 0.25 MG PO DAILY, TAB HOLD IF HR<60 07/18/18 Cranberry Fruit (CRANBERRY) 450 Mg Tablet, 450 MG PO DAILY, TAB 07/18/18 Chlorhexidine Gluconate (Peridex) 473 Ml Mouthwash, 15 ML MM Q12H, BOTTLE 07/18/18 Ipratropium-Albuterol (Ipratropium-Albuterol) 0.5-3 Mg/3 Ml Ampul.neb, 3 ML INHALATION Q4H PRN for VIA TRACHEOSTOMY, #30 VIAL 07/18/18 Albuterol Sulfate* (Albuterol Sulfate* Neb) 0.083%-3 Ml Neb, 2.5 MG NEB Q4H PRN for TRACHEOSTOMY, #30 VIAL AND Q6H NEEDED 07/18/18 Discontinued Reported Medications Multivitamins* (Multivitamins*) 1 Each Tablet, 1 TAB PO DAILY, TAB 10/24/16 Chlorhexidine Gluconate* (Chlorhexidine Gluconate*) 118 Ml Liquid, 15 ML TOP Q12, ML 10/24/16 Albuterol Sulfate* (Albuterol Sulfate* Neb) 0.083%-3 Ml Neb, 2.5 MG PE NEB Q6H PRN for WHEEZING AND SOB, #30 VIAL 10/24/16 Ipratropium-Albuterol (Ipratropium-Albuterol) 0.5-3 Mg/3 Ml Ampul.neb, 3 ML INHALATION Q4 PRN for SHORTNESS OF BREATH, #30 VIAL 10/24/16 Albuterol Sulfate* (Albuterol Sulfate* Neb) 0.083%-3 Ml Neb, 2.5 MG NEB Q4 PRN for SHORTNESS OF BREATH, #30 VIAL 10/24/16 Acetaminophen* (Tylenol*) 325 Mg Tablet, 650 MG PO Q4H PRN for MILD PAIN LEVEL 1-3, TAB 10/24/16 Tramadol HCl (Tramadol HCl) 50 Mg Tablet, 100 MG PO Q8, #120 TAB 10/24/16 Sucralfate (Carafate) 1 Gm Tablet, 1 GM PO AC BREAKFAST BEDTIME, TAB 10/24/16 Rivaroxaban* (Xarelto*) 15 Mg Tablet, 15 MG PO WITH DINNER, TAB 10/24/16 Pantoprazole (Protonix) 40 Mg Tabec, 40 MG PO DAILY, TAB 10/24/16 Polyethylene Glycol* (Miralax*) 17 Gm Powd.pack, 17 GM PO DAILY, #30 PACKET 10/24/16 Ferrous Sulfate* (Ferrous Sulfate*) 325 Mg Tabec, 325 MG PO DAILY, TAB 10/24/16 Digoxin* (Lanoxin*) 0.25 Mg Tablet, 0.25 MG PO DAILY, TAB 10/24/16 Cranberry Fruit Concentrate (CRANBERRY) 450 Mg Capsule, 450 MG PO DAILY, CAP 10/24/16 Discontinued Scripts Levofloxacin* (Levaquin*) 500 Mg Tablet, 500 MG PO DAILY for 7 Days, TAB Prov:AMISHA NUR NP 10/26/16 Furosemide* (Furosemide*) 40 Mg Tablet, 40 MG PO BID DIURETICS for 30 Days, TAB Prov:AMISHA NUR NP 10/26/16 Lisinopril* (Lisinopril*) 5 Mg Tablet, 5 MG PO BID for 30 Days, TAB Prov:AMISHA NUR COMPOSITION INSTRUCTOR 10/26/16 Allergies Allergies: Coded Allergies: No Known Allergy (Unverified , 07/18/18) PMhx/Soc History of Surgery: Yes (tracheostomy) Anesthesia Reaction: No Hx Neurological Disorder: No Hx Respiratory Disorders: Yes (Respiratory failyre with hypoxia) Hx Cardiac Disorders: Yes (A.Fib, meth induced cardiomyopathy) Hx Psychiatric Problems: No Hx Miscellaneous Medical Probl: No Hx Alcohol Use: No Hx Substance Use: Yes (methamphetamine) Hx Tobacco Use: Yes (former-smoker) FmHx Unable to obtain Physical Exam Vitals Vital Signs Date Temp Pulse Resp B/P (MAP) Pulse Ox O2 O2 Flow FiO2 Time Delivery Rate 07/18/18 78 19 100 40 17:02 07/18/18 79 20 149/74 99 Mechanical 16:20 (99) Ventilator 07/18/18 75 18 130/100 99 Mechanical 16:17 (110) Ventilator 07/18/18 95 18 98 40 14:45 07/18/18 97.8 94 18 166/79 95 14:33 (108) Physical Exam Const: No acute distress Head: Atraumatic Eyes: Normal Conjunctiva ENT: Dry mucous membranes. Normal External Ears, Nose and Mouth. Neck: Full range of motion. No meningismus. No JVD. Trach in place, on vent Resp: Diminished breath sounds bilaterally, right greater than left. No wheezing, rales, or rhonchi appreciated Cardio: Regular rate and rhythm, no murmurs Abd: Soft, non tender, non distended. Normal bowel sounds Skin: No petechiae or rashes Back: No midline or flank tenderness Ext: No cyanosis, or edema Neur: Awake and alert Psych: Normal Mood and Affect Result Diagram: 07/18/18 1443 07/18/18 1443 Results 24 hrs Laboratory Tests Test 07/18/18 14:41 07/18/18 14:43 Lactic Acid Level 2.0 mmol/L White Blood Count 26.2 10^3/ul Red Blood Count 3.55 10^6/ul Hemoglobin 8.5 g/dl Hematocrit 29.8 % Mean Corpuscular Volume 83.9 fl Mean Corpuscular Hemoglobin 23.9 pg Mean Corpuscular Hemoglobin Concent 28.5 g/dl Red Cell Distribution Width 14.4 % Platelet Count 405 10^3/UL Mean Platelet Volume 9.4 fl Immature Granulocytes % 1.200 % Neutrophils % % Segmented Neutrophils % (Manual) 90 % Lymphocytes % % Lymphocytes % (Manual) 5 % Monocytes % % Monocytes % (Manual) 4 % Eosinophils % % Eosinophils % (Manual) 1 % Basophils % % Nucleated Red Blood Cells % 0.0 /100WBC Immature Granulocytes # 0.320 10^3/ul Neutrophils # 10^3/ul Lymphocytes (Manual) 1.3 10^3/ul Lymphocytes # 10^3/ul Monocytes # 10^3/ul Monocytes # (Manual) 1.0 10^3/ul Eosinophils # 10^3/ul Basophils # 10^3/ul Nucleated Red Blood Cells # 10^3/ul Pathologist Review (Hematology) YES-PATH TO CONFIRM Polychromasia 1+ Poikilocytosis 1+ Anisocytosis 1+ Microcytosis 1+ Sodium Level 141 mmol/L Potassium Level 5.2 mmol/L Chloride Level 109 mmol/L Carbon Dioxide Level 27 mmol/L Anion Gap 5 Blood Urea Nitrogen 56 mg/dl Creatinine 1.77 mg/dl Est Glomerular Filtrat Rate mL/min 38 mL/min Glucose Level 347 mg/dl Calcium Level 9.4 mg/dl Troponin I 0.056 ng/ml Current Medications Medications Dose Sig/Juventino Start Time Status Last (Trade) Ordered Route PRN Stop Time Admin Dose Reason Admin Sodium 3,000 ml BOLUS OVER 2 07/18/18 DC 07/18/18 Chloride HOURS STAT 14:59 07/18/18 15:10 (NS) IV* 15:01 Vancomycin 250 ml @ ONCE STAT 07/18/18 DC 07/18/18 HCl 125 mls/hr IVPB 14:59 07/18/18 15:43 16:58 Cefepime HCl 50 ml @ ONCE STAT 07/18/18 DC 07/18/18 100 mls/hr IVPB 14:59 07/18/18 15:10 15:28 Ondansetron 4 mg ER BRIDGE 07/18/18 HCl (Zofran PRN IV 17:00 07/19/18 Inj) NAUSEA/VOMITI 16:59 NG 650 mg ER BRIDGE 07/18/18 Acetaminophen PRN PO 17:00 07/19/18 (Tylenol .MILD PAIN 16:59 Tab) 1-3 OR TEMP Procedures/MDM EMERGENT LABS AND DIAGNOSTIC STUDIES: Lab Results above were reviewed and interpreted by me. CBC: Leukocytosis, thrombocytosis, concerning for infection. Anemia BMP: Elevated BUN and creatinine, consistent with renal insufficiency. Borderline hyperkalemia. Troponin within normal limits, not indicative of cardiac ischemia Lactate within normal limits without evidence of sepsis or tissue hypoperfusion 12-lead EKG was interpreted by Neo Pate MD: Sinus rhythm with first-degree AV block Normal axis Normal intervals No acute ST or T wave changes suggestive of acute ischemia or STEMI. Radiology Results as interpreted by Radiology below were reviewed by Omero Pate MD: Chest x-ray shows complete whiteout of right lung, possibly secondary to fluid versus consolidation Initial Nursing notes reviewed. Previous Medical Records requested via the Electronic Health Record. EMERGENCY DEPARTMENT COURSE / MEDICAL DECISION MAKING: Patient is presenting with acute respiratory failure with hypoxia. 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 Given my high suspicion for infection, sepsis workup was initiated. Workup was notable for possible pneumonia on chest x-ray. Broad-spectrum antibiotics were given. Patient has been stable on the vent. Patient's infectious symptoms have not stabilized and the patient is at risk of rapid decompensation. The patient will be admitted for careful hydration, antibiotic therapy, and infectious source control. Severe Sepsis Assessment: Infectious Source: Pneumonia End organ damage indicated by: Acute Resp Failure (sat < 92% w/o oxygen) Severe Sepsis Managment: Blood Cultures X 2 before broad spectrum antibiotics initiated within 3 hours of recognition. 30 ml/kg NS bolus Completed Initial Lactate: 2 Repeat Lactate not indicated as initial < 2.0 Critical Care: Time: 35 minutes Treatments/Evaluations: Emergent fluid management, while maintaining close respiratory support. Immediate broad spectrum antibiotic therapy. Simultaneous assessment for possible sources in order to direct therapy. Consideration for invasive and chemical support to prevent respiratory or cardiac collapse. Septic Shock Assessment (1 hour post 30 ml/kg fluid bolus): Hypotension (SBP < 90 or 40 mmHg drop, MAP < 65): No Lactic acid > 4.0 no Accepting Care Team: Current data and ongoing care discussed. Time: Time of admission Primary Provider: Dr. Leavitt Consulting: none Outstanding Data: cultures Departure Diagnosis: Primary Impression: Sepsis Sepsis type: sepsis due to unspecified organism Qualified Codes: A41.9 - Sepsis, unspecified organism Additional Impressions: Healthcare-associated pneumonia Renal insufficiency Acute and chronic respiratory failure Condition: Serious SYBIL PATE MD Jul 18, 2018 14:36
[2018-07-18] MEDS ORDERED: CEFEPIME 2GM/50 ML (PMX) 50 ML IVPB STA (14:59)
[2018-07-18] MEDS ORDERED: SODIUM CHLORIDE 0.9% 1L BAG IV* STA (14:59)
[2018-07-18] MEDS ORDERED: VANCOMYCIN 1 GM (PMX) 250 ML IVPB STA (14:59)
[2018-07-18] MEDS ORDERED: ALBU2.5V3 NEB (15:11)
[2018-07-18] MEDS ORDERED: IPRA3AMP29 INHALATION (15:14)
[2018-07-18] MEDS ORDERED: CHLO473M4 MM (15:15)
[2018-07-18] MEDS ORDERED: CRAN450T7 PO (15:18)
[2018-07-18] MEDS ORDERED: POLY17PO6 PO (15:20)
[2018-07-18] MEDS ORDERED: DIGO250T PO (15:20)
[2018-07-18] MEDS ORDERED: FER325 PO (15:20)
[2018-07-18] MEDS ORDERED: MULT-105 PO (15:21)
[2018-07-18] MEDS ORDERED: PANT40TA4 PO (15:21)
[2018-07-18] MEDS ORDERED: RIVA15TA PO (15:22)
[2018-07-18] MEDS ORDERED: SUCR1TAB56 PO (15:23)
[2018-07-18] MEDS ORDERED: LORA1TAB PO (15:23)
[2018-07-18] MEDS ORDERED: ASC500 PO (15:24)
[2018-07-18] MEDS ORDERED: ACET-141 PO (15:25)
[2018-07-18] MEDS ORDERED: ACET325T33 PO (15:25)
[2018-07-18] MEDS ORDERED: INSU100I33 SC ×2 (15:26)
[2018-07-18] MEDS ORDERED: NOVO3I SC (15:28)
[2018-07-18] MEDS ORDERED: ONDANSETRON 4 MG INJ IV PRN (17:00)
[2018-07-18] MEDS ORDERED: ACETAMINOPHEN 325 MG TAB PO PRN (17:00)
[2018-07-18] MEDS ORDERED: RIVAROXABAN 15 MG TABLET PO SCH (18:00)
[2018-07-18] MEDS ORDERED: VANCOMYCIN IV PER PHARMACY XX SCH (18:00)
--- NOTE | 2018-07-18 18:15 | HP ---
Date/Time of Note Date/Time of Note DATE: 07/18/18 TIME: 18:10 Assessment/Plan VTE Prophylaxis Pharmacological prophylaxis: heparin Lines/Catheters IV Catheter Type (from Nrs): Saline Lock Assessment/Plan Hospital Course 68 yo male with chronic respiratory failure with trach normally to room air, A Fib, DMII who presents with hypoxia with XR showing R lung collapse Lung collapse leading to hypoxia: - Patient does not seem to have any syptoms of pneumonia - Bedside ultrasound not currently available to assess for extrinsic compression - CT chest pending - Will continue empiric abx for now, but low threshold to dc pending CT scan - Continue mechanical ventilation for now DMII - Basal/bolus insulin A Fib: - Continue Xarelto Diastolic CHF: - Compensated Anemia of unclear etiology: - Check iron stores CKD III: - Stable, trend creatinine Dc when stable to NH Result Diagram: 07/18/18 1443 07/18/18 1443 Results 24hrs Laboratory Tests Test 07/18/18 14:41 07/18/18 14:43 Lactic Acid Level 2.0 White Blood Count 26.2 #H Red Blood Count 3.55 L Hemoglobin 8.5 L Hematocrit 29.8 L Mean Corpuscular Volume 83.9 Mean Corpuscular Hemoglobin 23.9 L Mean Corpuscular Hemoglobin Concent 28.5 L Red Cell Distribution Width 14.4 Platelet Count 405 # Mean Platelet Volume 9.4 Immature Granulocytes % 1.200 H Neutrophils % Segmented Neutrophils % (Manual) 90 H Lymphocytes % Lymphocytes % (Manual) 5 L Monocytes % Monocytes % (Manual) 4 Eosinophils % Eosinophils % (Manual) 1 Basophils % Nucleated Red Blood Cells % 0.0 Immature Granulocytes # 0.320 H Neutrophils # Lymphocytes (Manual) 1.3 Lymphocytes # Monocytes # Monocytes # (Manual) 1.0 H Eosinophils # Basophils # Nucleated Red Blood Cells # Pathologist Review (Hematology) YES-PATH TO CONFIRM Polychromasia 1+ Poikilocytosis 1+ Anisocytosis 1+ Microcytosis 1+ Sodium Level 141 Potassium Level 5.2 H Chloride Level 109 Carbon Dioxide Level 27 Anion Gap 5 Blood Urea Nitrogen 56 H Creatinine 1.77 H Est Glomerular Filtrat Rate mL/min 38 L Glucose Level 347 H Calcium Level 9.4 Troponin I 0.056 HPI/ROS Admit Date/Time Admit Date/Time Hx of Present Illness 68 yo male with chornic resp failure of unclear etiology, parox A Fib, DMII presents with hypxoia Patient lives in [place]. There found to be randomly hypoxic. No report of any symptoms. Patient lives with trach on RA apparently. Given hypoxia, he was then connected to ventilator and sent to hosptial. Here found to have R lung whiteout. He appears very comfortable. Can't speak but is able to nod "no" to feeling any symptoms. No fevers. No phlegm or mucous. Feels well, only complaint seems to be of pain in buttocks ROS Constitutional: no complaints, improved Eyes: no complaints ENT: no complaints Respiratory: no complaints Cardiovascular: no complaints Gastrointestinal: no complaints Genitourinary: no complaints Musculoskeletal: no complaints Skin: no complaints Neurologic: no complaints Endocrine: no complaints Lymphatic: no complaints Psychological: no complaints, nl mood/affect Immunologic: no complaints PMH/Family/Social Past Medical History Medical History: congestive heart failure, diabetes Medications Current Medications Ondansetron HCl (Zofran Inj) 4 mg ER BRIDGE PRN IV NAUSEA/VOMITING; Start 07/18/18 at 17:00; Stop 07/19/18 at 16:59 Acetaminophen (Tylenol Tab) 650 mg ER BRIDGE PRN PO .MILD PAIN 1-3 OR TEMP; Start 07/18/18 at 17:00; Stop 07/19/18 at 16:59 Acetaminophen (Tylenol Tab) 650 mg Q4H PRN PO MILD PAIN LEVEL 1-3; Start 07/18/18 at 18:00 Albuterol (Proventil 0.083% (Neb)) 2.5 mg Q4H PRN NEB TRACHEOSTOMY; Start 07/18/18 at 18:00 Ascorbic Acid (Vitamin C) 500 mg DAILY PO ; Start 07/19/18 at 09:00 Chlorhexidine Gluconate (Peridex) 15 ml Q12H MM ; Start 07/18/18 at 18:00 Digoxin (Digoxin) 0.25 mg DAILY@1300 PO ; Start 07/19/18 at 13:00 Lorazepam (Ativan) 1 mg Q6 PRN PO ANXIETY; Start 07/18/18 at 18:00 Pantoprazole (Protonix Tab) 40 mg AC BREAKFAST PO ; Start 07/19/18 at 07:00 Polyethylene Glycol (Miralax) 17 gm DAILY PO ; Start 07/19/18 at 09:00 Rivaroxaban (Xarelto) 15 mg WITH DINNER PO ; Start 07/18/18 at 18:00 Sucralfate (Carafate) 1 gm AC MEALS AND BEDTIME PO ; Start 07/18/18 at 21:00 Vancomycin HCl (Vanco Iv Per Pharmacy) VANCOMYCIN PER PHARMACY PER PROTOCOL XX ; Start 07/18/18 at 18:00; Status UNV Piperacillin Sod/ Tazobactam Sod 100 ml @ 200 mls/hr Q8 IVPB ; Start 07/18/18 at 22:00 Coded Allergies: No Known Allergy (Unverified , 07/18/18) Past Surgical History Past Surgical Hx: no surgical history Family History Significant Family History: no pertinent family hx Social History Alcohol Use: none Smoking Status: Former smoker Drug Use: none Exam/Review of Systems Vital Signs Vitals Vital Signs Date Temp Pulse Resp B/P (MAP) Pulse Ox O2 O2 Flow FiO2 Time Delivery Rate 07/18/18 78 19 100 40 17:02 07/18/18 149/74 Mechanical 16:20 (99) Ventilator 07/18/18 97.8 14:33 Exam Exam Alert oriented x 3 Obese Resting comfortably Trach to vent Moves spontaneously x 4 Follows commands RRR Abdomen obese, soft, nt nd Ext warm no edema ALEXANDERGRCHICO FAIRCHILD MD Jul 18, 2018 18:15
[2018-07-18] MEDS: CHLORHEXIDINE GLUCONATE 15 ML UD CUP MM SCH (18:30)
[2018-07-18] MEDS ORDERED: VANCOMYCIN 1 GM in 250 ML IVPB ONE (21:00)
[2018-07-18] MEDS: PIPER-TAZO 3.375 GM IV (PMX) 100 ML IVPB SCH (23:00)
[2018-07-18] MEDS: SUCRALFATE 1 GM TAB PO SCH (23:00)
[2018-07-19] VITALS (19 sets, daily range): BP systolic 103–161; BP diastolic 58–75; PULSE 73–83; RESP 14–21; Ht 170.2 cm; Wt 97.0 kg
[2018-07-19] MEDS ORDERED: GLUCOSE GEL 15 GRAM TUBE BUCCAL PRN (04:00)
[2018-07-19] MEDS ORDERED: GLUCAGON 1 MG INJ IM PRN (04:00)
[2018-07-19] MEDS ORDERED: GLUCOSE GEL 15 GRAM TUBE PO PRN ×2 (04:00)
[2018-07-19] MEDS ORDERED: DEXTROSE 50% 50 ML SYRINGE IV PRN ×2 (04:00)
[2018-07-19] MEDS: PIPER-TAZO 3.375 GM IV (PMX) 100 ML IVPB SCH ×3 (06:05→21:11)
[2018-07-19] MEDS: CHLORHEXIDINE GLUCONATE 15 ML UD CUP MM SCH ×2 (06:05→18:48)
[2018-07-19] MEDS ORDERED: morphine 2 MG INJ IV ONE (06:14)
[2018-07-19] MEDS: SUCRALFATE 1 GM TAB PO SCH ×4 (06:43→21:00)
[2018-07-19] MEDS: PANTOPRAZOLE (EC) 40 MG TAB PO SCH (06:43)
[2018-07-19] MEDS: INSULIN ASPART [NOVOLOG] 3 ML PEN SC SCH ×4 (07:55→21:06)
[2018-07-19] MEDS: ASCORBIC ACID 500 MG TAB PO SCH (09:00)
[2018-07-19] MEDS: POLYETHYLENE GLYCOL 17 GM PACKET PO SCH (09:00)
--- NOTE | 2018-07-19 11:45 | CONS ---
Assessment/Plan Assessment/Plan Assessment/Plan (Daily) Assessment recommendations; 1. Patient with history of VDR F admitted for hypoxemia due to complete right lung atelectasis possibly from either right mainstem tumor versus mucous plugging. 2. Other comorbidities include history of atrial fibrillation, CHF, anemia, chronic renal insufficiency and diabetes. Continue current supportive care. Patient will need to have a bronchoscopy performed which will be done tomorrow morning. Patient is agreed. Patient also may benefit from thoracentesis which I would order on the right side. Consultation Date/Type/Reason Admit Date/Time Date of Consultation: Jul 19, 2018 Type of Consult Pulmonary patient is a 68-year-old male who [facility] was sent over to the hospital because of hypoxemia. Upon evaluation chest x-ray was done which is showing extensive pneumonia involving right lung which was subsequently confirmed by CT of the chest. Patient also has bilateral pleural effusions. Patient is on chronic ventilator and by the time I saw him appears very comfortable and denied having any chest pain, shortness of breath, coughing, hemoptysis. Past medical history; next 1. VDR F. Etiology for that is unclear. 2. History of CHF, anemia, chronic renal insufficiency, diabetes and atrial fibrillation. Medications; reviewed. Allergies; none. Social history; patient is an ex-smoker. Family history; noncontributory. Occupational history; noncontributory. Review of systems; denies any headache, visual changes. Any chest pain, denies any coughing, hemoptysis. Any abdominal pain, nausea vomiting. General exam; elderly male, awake and alert. Currently in no distress. On ventilator via tracheostomy. Date/Time of Note DATE: 07/19/18 TIME: 11:42 Past Medical History Medical History: congestive heart failure, diabetes Home Meds Reported Medications Insulin Aspart* (Novolog Insulin Pen*) 100 Unit/Ml Soln, 0 SC .SLIDING SCALE AC, EA OR 5 UNITS AC MEALS TID 07/18/18 Insulin Glargine,Hum.rec.anlog (Basaglar Kwikpen U-100) 100 Unit/1 Ml Insuln.pen, 28 UNIT SC QHS, EA 07/18/18 Insulin Glargine,Hum.rec.anlog (Basaglar Kwikpen U-100) 100 Unit/1 Ml Insuln.pen, 18 UNIT SC QAM, EA 07/18/18 Acetaminophen* (Acetaminophen*) 500 MG Extra Strength Tablet, 1000 MG PO Q8H PRN for PAIN, TAB 07/18/18 Acetaminophen* (Tylenol*) 325 Mg Tablet, 650 MG PO Q4H PRN for MILD PAIN LEVEL 1-3, TAB AND FEVER 07/18/18 Ascorbic Acid (Vitamin C) 500 Mg Tab, 500 MG PO DAILY, TAB 07/18/18 Lorazepam* (Lorazepam*) 1 Mg Tablet, 1 MG PO Q6 PRN for ANXIETY, #60 TAB 07/18/18 Sucralfate* (Carafate*) 1 Gm Tab, 1 GM PO AC MEALS AND BEDTIME, TAB 07/18/18 Rivaroxaban* (Xarelto*) 15 Mg Tablet, 15 MG PO WITH DINNER, TAB 07/18/18 Multivitamin with Minerals (Multivitamins with Minerals) 1 Each Tablet, 1 EACH PO DAILY, TAB 07/18/18 Pantoprazole* (Pantoprazole*) 40 Mg Tablet.dr, 40 MG PO AC BREAKFAST, TAB 07/18/18 Polyethylene Glycol* (Miralax*) 17 Gm Powd.pack, 17 GM PO DAILY, #30 PACKET 07/18/18 Ferrous Sulfate* (Ferrous Sulfate*) 325 Mg Tabec, 325 MG PO DAILY, TAB 07/18/18 Digoxin* (Digitek*) 250 Mcg Tablet, 0.25 MG PO DAILY, TAB HOLD IF HR<60 07/18/18 Cranberry Fruit (CRANBERRY) 450 Mg Tablet, 450 MG PO DAILY, TAB 07/18/18 Chlorhexidine Gluconate (Peridex) 473 Ml Mouthwash, 15 ML MM Q12H, BOTTLE 07/18/18 Ipratropium-Albuterol (Ipratropium-Albuterol) 0.5-3 Mg/3 Ml Ampul.neb, 3 ML INHALATION Q4H PRN for VIA TRACHEOSTOMY, #30 VIAL 07/18/18 Albuterol Sulfate* (Albuterol Sulfate* Neb) 0.083%-3 Ml Neb, 2.5 MG NEB Q4H PRN for TRACHEOSTOMY, #30 VIAL AND Q6H NEEDED 07/18/18 Discontinued Reported Medications Multivitamins* (Multivitamins*) 1 Each Tablet, 1 TAB PO DAILY, TAB 10/24/16 Chlorhexidine Gluconate* (Chlorhexidine Gluconate*) 118 Ml Liquid, 15 ML TOP Q12, ML 10/24/16 Albuterol Sulfate* (Albuterol Sulfate* Neb) 0.083%-3 Ml Neb, 2.5 MG PE NEB Q6H PRN for WHEEZING AND SOB, #30 VIAL 10/24/16 Ipratropium-Albuterol (Ipratropium-Albuterol) 0.5-3 Mg/3 Ml Ampul.neb, 3 ML INHALATION Q4 PRN for SHORTNESS OF BREATH, #30 VIAL 10/24/16 Albuterol Sulfate* (Albuterol Sulfate* Neb) 0.083%-3 Ml Neb, 2.5 MG NEB Q4 PRN for SHORTNESS OF BREATH, #30 VIAL 10/24/16 Acetaminophen* (Tylenol*) 325 Mg Tablet, 650 MG PO Q4H PRN for MILD PAIN LEVEL 1-3, TAB 10/24/16 Tramadol HCl (Tramadol HCl) 50 Mg Tablet, 100 MG PO Q8, #120 TAB 10/24/16 Sucralfate (Carafate) 1 Gm Tablet, 1 GM PO AC BREAKFAST BEDTIME, TAB 10/24/16 Rivaroxaban* (Xarelto*) 15 Mg Tablet, 15 MG PO WITH DINNER, TAB 10/24/16 Pantoprazole (Protonix) 40 Mg Tabec, 40 MG PO DAILY, TAB 10/24/16 Polyethylene Glycol* (Miralax*) 17 Gm Powd.pack, 17 GM PO DAILY, #30 PACKET 10/24/16 Ferrous Sulfate* (Ferrous Sulfate*) 325 Mg Tabec, 325 MG PO DAILY, TAB 10/24/16 Digoxin* (Lanoxin*) 0.25 Mg Tablet, 0.25 MG PO DAILY, TAB 10/24/16 Cranberry Fruit Concentrate (CRANBERRY) 450 Mg Capsule, 450 MG PO DAILY, CAP 10/24/16 Discontinued Scripts Levofloxacin* (Levaquin*) 500 Mg Tablet, 500 MG PO DAILY for 7 Days, TAB Prov:AMISHA NUR NAIL PULLER 10/26/16 Furosemide* (Furosemide*) 40 Mg Tablet, 40 MG PO BID DIURETICS for 30 Days, TAB Prov:AMISHA NUR NAIL PULLER 10/26/16 Lisinopril* (Lisinopril*) 5 Mg Tablet, 5 MG PO BID for 30 Days, TAB Prov:AMISHA NUR NAIL PULLER 10/26/16 Medications Current Medications Acetaminophen (Tylenol Tab) 650 mg Q4H PRN PO MILD PAIN LEVEL 1-3; Start 07/18/18 at 18:00 Albuterol (Proventil 0.083% (Neb)) 2.5 mg Q4H PRN NEB TRACHEOSTOMY; Start 07/18/18 at 18:00 Ascorbic Acid (Vitamin C) 500 mg DAILY PO Last administered on 07/19/18at 09:00; Admin Dose 500 MG; Start 07/19/18 at 09:00 Chlorhexidine Gluconate (Peridex) 15 ml Q12H MM Last administered on 07/19/18at 06:05; Admin Dose 15 ML; Start 07/18/18 at 18:00 Digoxin (Digoxin) 0.25 mg DAILY@1300 PO ; Start 07/19/18 at 13:00 Lorazepam (Ativan) 1 mg Q6 PRN PO ANXIETY; Start 07/18/18 at 18:00 Pantoprazole (Protonix Tab) 40 mg AC BREAKFAST PO Last administered on 07/19/18at 06:43; Admin Dose 40 MG; Start 07/19/18 at 07:00 Polyethylene Glycol (Miralax) 17 gm DAILY PO ; Start 07/19/18 at 09:00 Rivaroxaban (Xarelto) 15 mg WITH DINNER PO Last administered on 07/18/18at 20:02; Admin Dose 15 MG; Start 07/18/18 at 18:00 Sucralfate (Carafate) 1 gm AC MEALS AND BEDTIME PO Last administered on 07/19/18at 06:43; Admin Dose 1 GM; Start 07/18/18 at 21:00 Vancomycin HCl (Vanco Iv Per Pharmacy) VANCOMYCIN PER PHARMACY PER PROTOCOL XX ; Start 07/18/18 at 18:00 Piperacillin Sod/ Tazobactam Sod 100 ml @ 200 mls/hr Q8 IVPB Last administered on 07/19/18at 06:05; Admin Dose 200 MLS/HR; Start 07/18/18 at 22:00 Vancomycin HCl 250 ml @ 125 mls/hr Q24H IVPB ; Start 07/19/18 at 22:00 Diagnostic Test (Pha) (Accu-Chek) 1 XX ; Start 07/20/18 at 02:00 Insulin Aspart (Novolog Insulin Pen) NOVOLOG *MILD* ALGORITHM WITH MEALS BEDTIME SC ; Start 07/19/18 at 07:55 Miscellaneous Information 1 ea NOTE XX ; Start 07/19/18 at 04:00 Glucose (Glutose) 15 gm Q15M PRN PO DECREASED GLUCOSE; Start 07/19/18 at 04:00 Glucose (Glutose) 22.5 gm Q15M PRN PO DECREASED GLUCOSE; Start 07/19/18 at 04:00 Dextrose (D50w Syringe) 25 ml Q15M PRN IV DECREASED GLUCOSE; Start 07/19/18 at 04:00 Dextrose (D50w Syringe) 50 ml Q15M PRN IV DECREASED GLUCOSE; Start 07/19/18 at 04:00 Glucagon (Glucagen) 1 mg Q15M PRN IM DECREASED GLUCOSE; Start 07/19/18 at 04:00 Glucose (Glutose) 15 gm Q15M PRN BUCCAL DECREASED GLUCOSE; Start 07/19/18 at 04:00 Allergies: Coded Allergies: No Known Allergy (Unverified , 07/18/18) Past Surgical History Past Surgical Hx: no surgical history Social History Alcohol Use: none Smoking Status: Former smoker Drug Use: none Exam/Review of Systems Exam Vitals Vital Signs Date Temp Pulse Resp B/P (MAP) Pulse Ox O2 O2 Flow FiO2 Time Delivery Rate 07/19/18 79 11:13 07/19/18 98.7 18 103/58 98 Mechanical 07:06 (73) Ventilator 07/19/18 40 05:49 Exam H EENT exam; supple neck, tracheostomy in place. Patient has a few remaining carious teeth. No neck masses. Chest exam; diminished breath sounds throughout. S1-S2 audible, no murmurs. Irregular rhythm. Abdomen exam; soft, protuberant. Nontender. Bowel sounds audible. Extremity exam; trace edema. GUEST SERVICE AIDE exam; no focal deficit. Results Result Diagram: 07/19/18 0745 07/19/18 0745 Results 24hrs Laboratory Tests Test 07/18/18 14:41 07/18/18 14:43 07/18/18 19:29 07/18/18 21:04 Lactic Acid Level 2.0 2.2 *H 1.5 White Blood Count 26.2 #H Red Blood Count 3.55 L Hemoglobin 8.5 L Hematocrit 29.8 L Mean Corpuscular 83.9 Volume Mean Corpuscular 23.9 L Hemoglobin Mean Corpuscular 28.5 L Hemoglobin Concent Red Cell 14.4 Distribution Width Platelet Count 405 # Mean Platelet 9.4 Volume Immature 1.200 H Granulocytes % Neutrophils % Segmented 90 H Neutrophils % (Manual) Lymphocytes % Lymphocytes % 5 L (Manual) Monocytes % Monocytes % 4 (Manual) Eosinophils % Eosinophils % 1 (Manual) Basophils % Nucleated Red 0.0 Blood Cells % Immature 0.320 H Granulocytes # Neutrophils # Lymphocytes 1.3 (Manual) Lymphocytes # Monocytes # Monocytes # 1.0 H (Manual) Eosinophils # Basophils # Nucleated Red Blood Cells # Pathologist YES-PATH Review (Hematology TO CONFIRM ) Polychromasia 1+ Poikilocytosis 1+ Anisocytosis 1+ Microcytosis 1+ Sodium Level 141 Potassium Level 5.2 H Chloride Level 109 Carbon Dioxide 27 Level Anion Gap 5 Blood Urea 56 H Nitrogen Creatinine 1.77 H Est Glomerular 38 L Filtrat Rate mL/min Glucose Level 347 H Calcium Level 9.4 Troponin I 0.056 Test 07/19/18 03:13 07/19/18 07:45 07/19/18 07:57 Bedside Glucose 101 94 White Blood Count 20.0 #H Red Blood Count 2.88 L Hemoglobin 7.0 L Hematocrit 24.0 L Mean Corpuscular 83.3 Volume Mean Corpuscular 24.3 L Hemoglobin Mean Corpuscular 29.2 L Hemoglobin Concent Red Cell 14.4 Distribution Width Platelet Count 302 # Mean Platelet 9.6 Volume Immature 1.500 H Granulocytes % Neutrophils % 86.2 H Lymphocytes % 5.0 L Monocytes % 6.0 Eosinophils % 1.1 Basophils % 0.2 Nucleated Red 0.0 Blood Cells % Immature 0.300 H Granulocytes # Neutrophils # 17.2 H Lymphocytes # 1.0 Monocytes # 1.2 H Eosinophils # 0.2 Basophils # 0.1 Nucleated Red 0.0 Blood Cells # Sodium Level 139 Potassium Level 4.2 Chloride Level 112 H Carbon Dioxide 24 Level Anion Gap 3 L Blood Urea 47 H Nitrogen Creatinine 1.85 H Est Glomerular 36 L Filtrat Rate mL/min Glucose Level 81 # Calcium Level 8.5 Medications Medication Current Medications Acetaminophen (Tylenol Tab) 650 mg Q4H PRN PO MILD PAIN LEVEL 1-3; Start 07/18/18 at 18:00 Albuterol (Proventil 0.083% (Neb)) 2.5 mg Q4H PRN NEB TRACHEOSTOMY; Start 07/18/18 at 18:00 Ascorbic Acid (Vitamin C) 500 mg DAILY PO Last administered on 07/19/18at 09:00; Admin Dose 500 MG; Start 07/19/18 at 09:00 Chlorhexidine Gluconate (Peridex) 15 ml Q12H MM Last administered on 07/19/18at 06:05; Admin Dose 15 ML; Start 07/18/18 at 18:00 Digoxin (Digoxin) 0.25 mg DAILY@1300 PO ; Start 07/19/18 at 13:00 Lorazepam (Ativan) 1 mg Q6 PRN PO ANXIETY; Start 07/18/18 at 18:00 Pantoprazole (Protonix Tab) 40 mg AC BREAKFAST PO Last administered on 07/19/18at 06:43; Admin Dose 40 MG; Start 07/19/18 at 07:00 Polyethylene Glycol (Miralax) 17 gm DAILY PO ; Start 07/19/18 at 09:00 Rivaroxaban (Xarelto) 15 mg WITH DINNER PO Last administered on 07/18/18at 20:02; Admin Dose 15 MG; Start 07/18/18 at 18:00 Sucralfate (Carafate) 1 gm AC MEALS AND BEDTIME PO Last administered on 07/19/18at 06:43; Admin Dose 1 GM; Start 07/18/18 at 21:00 Vancomycin HCl (Vanco Iv Per Pharmacy) VANCOMYCIN PER PHARMACY PER PROTOCOL XX ; Start 07/18/18 at 18:00 Piperacillin Sod/ Tazobactam Sod 100 ml @ 200 mls/hr Q8 IVPB Last administered on 07/19/18at 06:05; Admin Dose 200 MLS/HR; Start 07/18/18 at 22:00 Vancomycin HCl 250 ml @ 125 mls/hr Q24H IVPB ; Start 07/19/18 at 22:00 Diagnostic Test (Pha) (Accu-Chek) 1 ea 02 XX ; Start 07/20/18 at 02:00 Insulin Aspart (Novolog Insulin Pen) NOVOLOG *MILD* ALGORITHM WITH MEALS BEDTIME SC ; Start 07/19/18 at 07:55 Miscellaneous Information 1 ea NOTE XX ; Start 07/19/18 at 04:00 Glucose (Glutose) 15 gm Q15M PRN PO DECREASED GLUCOSE; Start 07/19/18 at 04:00 Glucose (Glutose) 22.5 gm Q15M PRN PO DECREASED GLUCOSE; Start 07/19/18 at 04:00 Dextrose (D50w Syringe) 25 ml Q15M PRN IV DECREASED GLUCOSE; Start 07/19/18 at 04:00 Dextrose (D50w Syringe) 50 ml Q15M PRN IV DECREASED GLUCOSE; Start 07/19/18 at 04:00 Glucagon (Glucagen) 1 mg Q15M PRN IM DECREASED GLUCOSE; Start 07/19/18 at 04:00 Glucose (Glutose) 15 gm Q15M PRN BUCCAL DECREASED GLUCOSE; Start 07/19/18 at 04:00 WARREN HOLLIS Jul 19, 2018 11:45
[2018-07-19] MEDS: DIGOXIN 0.25 MG TAB PO SCH (12:49)
--- NOTE | 2018-07-19 13:16 | PN ---
Date/Time of Note Date/Time of Note DATE: 07/19/18 TIME: 13:09 Assessment/Plan VTE Prophylaxis Risk score (from Ns)>0 risk: 7 SCD applied (from Ns): Yes Pharmacological prophylaxis: heparin Lines/Catheters IV [facility]from [facility] [place] Assessment/Plan Hospital Course 68 yo male with chronic respiratory failure with trach normally to room air, A Fib, DMII who presents with hypoxia with XR showing R lung collapse Lung collapse leading to hypoxia: - Plan for bronchoscopy tomorrow, thoracentesis - Will continue empiric abx for now, low threshold to dc - Continue mechanical ventilation for now DMII - Basal/bolus insulin A Fib: - Hold Xarelto for procedures Diastolic CHF: - Compensated Anemia of unclear etiology: - Check iron stores CKD III: - Stable, trend creatinine Dc when stable to NH Result Diagram: 07/19/18 0745 07/19/18 0745 Results 24hrs Laboratory Tests Test 07/18/18 14:41 07/18/18 14:43 07/18/18 19:29 07/18/18 21:04 Lactic Acid Level 2.0 2.2 *H 1.5 White Blood Count 26.2 #H Red Blood Count 3.55 L Hemoglobin 8.5 L Hematocrit 29.8 L Mean Corpuscular 83.9 Volume Mean Corpuscular 23.9 L Hemoglobin Mean Corpuscular 28.5 L Hemoglobin Concent Red Cell 14.4 Distribution Width Platelet Count 405 # Mean Platelet 9.4 Volume Immature 1.200 H Granulocytes % Neutrophils % Segmented 90 H Neutrophils % (Manual) Lymphocytes % Lymphocytes % 5 L (Manual) Monocytes % Monocytes % 4 (Manual) Eosinophils % Eosinophils % 1 (Manual) Basophils % Nucleated Red 0.0 Blood Cells % Immature 0.320 H Granulocytes # Neutrophils # Lymphocytes 1.3 (Manual) Lymphocytes # Monocytes # Monocytes # 1.0 H (Manual) Eosinophils # Basophils # Nucleated Red Blood Cells # Pathologist YES-PATH Review (Hematology TO CONFIRM ) Polychromasia 1+ Poikilocytosis 1+ Anisocytosis 1+ Microcytosis 1+ Sodium Level 141 Potassium Level 5.2 H Chloride Level 109 Carbon Dioxide 27 Level Anion Gap 5 Blood Urea 56 H Nitrogen Creatinine 1.77 H Est Glomerular 38 L Filtrat Rate mL/min Glucose Level 347 H Calcium Level 9.4 Troponin I 0.056 Test 07/19/18 03:13 07/19/18 07:45 07/19/18 07:57 07/19/18 11:43 Bedside Glucose 101 94 178 White Blood Count 20.0 #H Red Blood Count 2.88 L Hemoglobin 7.0 L Hematocrit 24.0 L Mean Corpuscular 83.3 Volume Mean Corpuscular 24.3 L Hemoglobin Mean Corpuscular 29.2 L Hemoglobin Concent Red Cell 14.4 Distribution Width Platelet Count 302 # Mean Platelet 9.6 Volume Immature 1.500 H Granulocytes % Neutrophils % 86.2 H Lymphocytes % 5.0 L Monocytes % 6.0 Eosinophils % 1.1 Basophils % 0.2 Nucleated Red 0.0 Blood Cells % Immature 0.300 H Granulocytes # Neutrophils # 17.2 H Lymphocytes # 1.0 Monocytes # 1.2 H Eosinophils # 0.2 Basophils # 0.1 Nucleated Red 0.0 Blood Cells # Sodium Level 139 Potassium Level 4.2 Chloride Level 112 H Carbon Dioxide 24 Level Anion Gap 3 L Blood Urea 47 H Nitrogen Creatinine 1.85 H Est Glomerular 36 L Filtrat Rate mL/min Glucose Level 81 # Calcium Level 8.5 Subjective 24 Hr Interval Summary Free Text/Dictation CT results notable for lung collapse with large effusion Discussed with him plan for thoracentesis and bronchosocpy tomorrow Exam/Review of Systems Exam Vitals Vital Signs Date Temp Pulse Resp B/P (MAP) Pulse Ox O2 O2 Flow FiO2 Time Delivery Rate 07/19/18 76 13:05 07/19/18 97.7 18 161/75 98 Mechanical 11:39 (103) Ventilator 07/19/18 40 05:49 Exam AOx3 Pleasant RRR R lung sounds abscent MV via trach Obese Results Results 24hrs Laboratory Tests Test 07/18/18 14:41 07/18/18 14:43 07/18/18 19:29 07/18/18 21:04 Lactic Acid Level 2.0 2.2 *H 1.5 White Blood Count 26.2 #H Red Blood Count 3.55 L Hemoglobin 8.5 L Hematocrit 29.8 L Mean Corpuscular 83.9 Volume Mean Corpuscular 23.9 L Hemoglobin Mean Corpuscular 28.5 L Hemoglobin Concent Red Cell 14.4 Distribution Width Platelet Count 405 # Mean Platelet 9.4 Volume Immature 1.200 H Granulocytes % Neutrophils % Segmented 90 H Neutrophils % (Manual) Lymphocytes % Lymphocytes % 5 L (Manual) Monocytes % Monocytes % 4 (Manual) Eosinophils % Eosinophils % 1 (Manual) Basophils % Nucleated Red 0.0 Blood Cells % Immature 0.320 H Granulocytes # Neutrophils # Lymphocytes 1.3 (Manual) Lymphocytes # Monocytes # Monocytes # 1.0 H (Manual) Eosinophils # Basophils # Nucleated Red Blood Cells # Pathologist YES-PATH Review (Hematology TO CONFIRM ) Polychromasia 1+ Poikilocytosis 1+ Anisocytosis 1+ Microcytosis 1+ Sodium Level 141 Potassium Level 5.2 H Chloride Level 109 Carbon Dioxide 27 Level Anion Gap 5 Blood Urea 56 H Nitrogen Creatinine 1.77 H Est Glomerular 38 L Filtrat Rate mL/min Glucose Level 347 H Calcium Level 9.4 Troponin I 0.056 Test 07/19/18 03:13 07/19/18 07:45 07/19/18 07:57 07/19/18 11:43 Bedside Glucose 101 94 178 White Blood Count 20.0 #H Red Blood Count 2.88 L Hemoglobin 7.0 L Hematocrit 24.0 L Mean Corpuscular 83.3 Volume Mean Corpuscular 24.3 L Hemoglobin Mean Corpuscular 29.2 L Hemoglobin Concent Red Cell 14.4 Distribution Width Platelet Count 302 # Mean Platelet 9.6 Volume Immature 1.500 H Granulocytes % Neutrophils % 86.2 H Lymphocytes % 5.0 L Monocytes % 6.0 Eosinophils % 1.1 Basophils % 0.2 Nucleated Red 0.0 Blood Cells % Immature 0.300 H Granulocytes # Neutrophils # 17.2 H Lymphocytes # 1.0 Monocytes # 1.2 H Eosinophils # 0.2 Basophils # 0.1 Nucleated Red 0.0 Blood Cells # Sodium Level 139 Potassium Level 4.2 Chloride Level 112 H Carbon Dioxide 24 Level Anion Gap 3 L Blood Urea 47 H Nitrogen Creatinine 1.85 H Est Glomerular 36 L Filtrat Rate mL/min Glucose Level 81 # Calcium Level 8.5 Medications Medication Current Medications Acetaminophen (Tylenol Tab) 650 mg Q4H PRN PO MILD PAIN LEVEL 1-3; Start 9 at 18:00 Albuterol (Proventil 0.083% (Neb)) 2.5 mg Q4H PRN NEB TRACHEOSTOMY; Start 07/18/18 at 18:00 Ascorbic Acid (Vitamin C) 500 mg DAILY PO Last administered on 07/19/18at 09:00; Admin Dose 500 MG; Start 07/19/18 at 09:00 Chlorhexidine Gluconate (Peridex) 15 ml Q12H MM Last administered on 07/19/18 06:05; Admin Dose 15 ML; Start 07/18/18 at 18:00 Digoxin (Digoxin) 0.25 mg DAILY@1300 PO Last administered on 07/19/18 12:49; Admin Dose 0.25 MG; Start 07/19/18 at 13:00 Lorazepam (Ativan) 1 mg Q6 PRN PO ANXIETY; Start 07/18/18 at 18:00 Pantoprazole (Protonix Tab) 40 mg AC BREAKFAST PO Last administered on 07/19/18 06:43; Admin Dose 40 MG; Start 07/19/18 at 07:00 Polyethylene Glycol (Miralax) 17 gm DAILY PO ; Start 07/19/18 at 09:00 Rivaroxaban (Xarelto) 15 mg WITH DINNER PO Last administered on 07/18/18 20:02; Admin Dose 15 MG; Start 07/18/18 at 18:00 Sucralfate (Carafate) 1 gm AC MEALS AND BEDTIME PO Last administered on 07/19/18 12:49; Admin Dose 1 GM; Start 07/18/18 at 21:00 Vancomycin HCl (Vanco Iv Per Pharmacy) VANCOMYCIN PER PHARMACY PER PROTOCOL XX ; Start 07/18/18 at 18:00 Piperacillin Sod/ Tazobactam Sod 100 ml @ 200 mls/hr Q8 IVPB Last administered on 07/19/18at 06:05; Admin Dose 200 MLS/HR; Start 07/18/18 at 22:00 Vancomycin HCl 250 ml @ 125 mls/hr Q24H IVPB ; Start 07/19/18 at 22:00 Diagnostic Test (Pha) (Accu-Chek) 1 ea 02 XX ; Start 07/20/18 at 02:00 Insulin Aspart (Novolog Insulin Pen) NOVOLOG *MILD* ALGORITHM WITH MEALS BEDTIME SC Last administered on 07/19/18at 12:55; Admin Dose 1 UNIT; Start 07/19/18 at 07:55 Miscellaneous Information 1 ea NOTE XX ; Start 07/19/18 at 04:00 Glucose (Glutose) 15 gm Q15M PRN PO DECREASED GLUCOSE; Start 4/4/19 at 04:00 Glucose (Glutose) 22.5 gm Q15M PRN PO DECREASED GLUCOSE; Start 07/19/18 at 04:00 Dextrose (D50w Syringe) 25 ml Q15M PRN IV DECREASED GLUCOSE; Start 07/19/18 at 04:00 Dextrose (D50w Syringe) 50 ml Q15M PRN IV DECREASED GLUCOSE; Start 07/19/18 at 04:00 Glucagon (Glucagen) 1 mg Q15M PRN IM DECREASED GLUCOSE; Start 07/19/18 at 04:00 Glucose (Glutose) 15 gm Q15M PRN BUCCAL DECREASED GLUCOSE; Start 07/19/18 at 04:00 CHICO VARGAS MD Jul 19, 2018 13:16
[2018-07-19] MEDS ORDERED: LORAZEPAM 2 MG INJ IV ONE (15:30)
[2018-07-19] MEDS ORDERED: VANCOMYCIN 1 GM 250 ML IVPB SCH (22:00)
[2018-07-20] VITALS (24 sets, daily range): BP systolic 104–150; BP diastolic 56–69; PULSE 69–99; RESP 14–20
[2018-07-20] MEDS ORDERED: ACCU-CHEK XX SCH (02:00)
[2018-07-20] MEDS: CHLORHEXIDINE GLUCONATE 15 ML UD CUP MM SCH ×2 (05:29→18:31)
[2018-07-20] MEDS: PIPER-TAZO 3.375 GM IV (PMX) 100 ML IVPB SCH ×3 (05:29→22:04)
[2018-07-20] MEDS: SUCRALFATE 1 GM TAB PO SCH ×4 (06:24→21:39)
[2018-07-20] MEDS: PANTOPRAZOLE (EC) 40 MG TAB PO SCH (06:24)
[2018-07-20] MEDS: INSULIN ASPART [NOVOLOG] 3 ML PEN SC SCH ×4 (07:55→21:00)
[2018-07-20] MEDS: POLYETHYLENE GLYCOL 17 GM PACKET PO SCH (09:00)
[2018-07-20] MEDS: ASCORBIC ACID 500 MG TAB PO SCH (09:00)
[2018-07-20] MEDS ORDERED: PROPOFOL 200 MG INJ IV ONE ×2 (09:30→14:00)
--- NOTE | 2018-07-20 09:31 | CONS ---
Assessment/Plan Assessment/Plan Assessment/Plan (Daily) Ventilator settings; AC of 14, tidal volume 550, PEEP of 5, 30% FiO2. Assessment recommendations; 1. Patient with history of VD RF admitted for severe pneumonia involving right lung. With bilateral pleural effusions, right pleural effusion is loculated. Likely empyema versus parapneumonic effusion. The patient also has significant leukocytosis. 2. Possibly right mainstem obstruction with mucus versus tumor. 3. Chronic atrial fibrillation. 4. History of CHF. 5. Diabetes. Continue current supportive care. Patient scheduled for bronchoscopy shortly. Further recommendations once bronchoscopy is performed. Consultation Date/Type/Reason Admit Date/Time Jul 18, 2018 at 16:47 Initial Consult Date 07/19/18 Type of Consult Pulmonary patient is a 68-year-old male who Lives in residential was sent over to the hospital because of hypoxemia. Upon evaluation chest x-ray was done which is showing extensive pneumonia involving right lung which was subsequently confirmed by CT of the chest. Patient also has bilateral pleural effusions. Patient is on chronic ventilator and by the time I saw him appears very comfortable and denied having any chest pain, shortness of breath, coughing, hemoptysis. Past medical history; next 1. VDR F. Etiology for that is unclear. 2. History of CHF, anemia, chronic renal insufficiency, diabetes and atrial fibrillation. Medications; reviewed. Allergies; none. Social history; patient is an ex-smoker. Family history; noncontributory. Occupational history; noncontributory. Review of systems; denies any headache, visual changes. Any chest pain, denies any coughing, hemoptysis. Any abdominal pain, nausea vomiting. General exam; elderly male, awake and alert. Currently in no distress. On ventilator via tracheostomy. Date/Time of Note DATE: 07/20/18 TIME: 09:26 24 HR Interval Summary Free Text/Dictation Patient's condition is stable. Remains awake and alert. Has remained hemodynamically stable. General exam; elderly male, on ventilator via tracheostomy, awake and alert. Currently in no distress. Exam/Review of Systems Exam Vitals Vital Signs Date Temp Pulse Resp B/P (MAP) Pulse Ox O2 O2 Flow FiO2 Time Delivery Rate 07/20/18 82 08:18 07/20/18 98.6 16 113/56 98 Mechanical 08:13 (75) Ventilator 07/20/18 40 05:53 Intake and Output 07/19/18 07/19/18 07/20/18 1515:00 23:00 07:00 IntakeIntake Total 200 ml 450 ml 120 ml OutputOutput Total 650 ml BalanceBalance 200 ml 450 ml -530 ml Exam H EENT exam; supple neck, no JVD. No lymphadenopathy. Midline trachea. No thyromegaly. Patient is edentulous. Tracheostomy in place. Chest exam; diminished breath sounds right lung. Left lung is fairly clear. S1-S2 audible, no murmurs. Regular rhythm. Abdomen exam; soft, nontender. No organomegaly. Bowel sounds audible. Extremity exam; no peripheral edema or clubbing. LAY OUT FORMER exam; no focal motor deficit. Patient though exhibiting generalized weakness. Results Result Diagram: 07/20/18 0614 07/20/18 0614 Results 24hrs Laboratory Tests Test 07/19/18 11:43 07/19/18 13:48 07/19/18 17:27 07/19/18 21:02 Bedside Glucose 178 243 H 367 H Platelet Count 302 Prothrombin Time 16.8 H Prothrombin Time Ratio 1.3 INR International 1.35 Normalized Ratio Activated 31.5 Partial Thromboplast Time Thrombin Time 17.8 Test 07/20/18 02:04 07/20/18 06:14 07/20/18 09:05 Bedside Glucose 174 192 White Blood Count 21.2 H Red Blood Count 2.95 L Hemoglobin 7.1 L Hematocrit 24.3 L Mean Corpuscular Volume 82.4 Mean Corpuscular 24.1 L Hemoglobin Mean Corpuscular 29.2 L Hemoglobin Concent Red Cell Distribution 14.5 Width Platelet Count 298 Mean Platelet Volume 9.5 Immature Granulocytes % 1.200 H Neutrophils % 85.1 H Lymphocytes % 5.0 L Monocytes % 6.7 Eosinophils % 1.7 Basophils % 0.3 Nucleated Red Blood 0.0 Cells % Immature Granulocytes # 0.250 H Neutrophils # 18.1 H Lymphocytes # 1.1 Monocytes # 1.4 H Eosinophils # 0.4 Basophils # 0.1 Nucleated Red Blood 0.0 Cells # Sodium Level 136 Potassium Level 4.3 Chloride Level 106 Carbon Dioxide Level 25 Anion Gap 5 Blood Urea Nitrogen 45 H Creatinine 2.13 H Est Glomerular Filtrat 31 L Rate mL/min Glucose Level 159 Calcium Level 8.6 Iron Level < 10 L Total Iron Binding 182 L Capacity Percent Iron Saturation Ferritin 113.0 Medications Medication Current Medications Acetaminophen (Tylenol Tab) 650 mg Q4H PRN PO MILD PAIN LEVEL 1-3; Start 07/18/18 at 18:00 Albuterol (Proventil 0.083% (Neb)) 2.5 mg Q4H PRN NEB TRACHEOSTOMY; Start 07/18/18 at 18:00 Ascorbic Acid (Vitamin C) 500 mg DAILY PO Last administered on 07/19/18 09:00; Admin Dose 500 MG; Start 07/19/18 at 09:00 Chlorhexidine Gluconate (Peridex) 15 ml Q12H MM Last administered on 07/20/18 05:29; Admin Dose 15 ML; Start 07/18/18 at 18:00 Digoxin (Digoxin) 0.25 mg DAILY@1300 PO Last administered on 07/19/18 12:49; Admin Dose 0.25 MG; Start 07/19/18 at 13:00 Lorazepam (Ativan) 1 mg Q6 PRN PO ANXIETY; Start 07/18/18 at 18:00 Pantoprazole (Protonix Tab) 40 mg AC BREAKFAST PO Last administered on 07/19/18 06:43; Admin Dose 40 MG; Start 07/19/18 at 07:00 Polyethylene Glycol (Miralax) 17 gm DAILY PO ; Start 07/19/18 at 09:00 Rivaroxaban (Xarelto) 15 mg WITH DINNER PO Last administered on 07/18/18 20:02; Admin Dose 15 MG; Start 07/18/18 at 18:00; Status Hold Sucralfate (Carafate) 1 gm AC MEALS AND BEDTIME PO Last administered on 07/19/18 21:00; Admin Dose 1 GM; Start 07/18/18 at 21:00 Piperacillin Sod/ Tazobactam Sod 100 ml @ 200 mls/hr Q8 IVPB Last administered on 07/20/18 05:29; Admin Dose 200 MLS/HR; Start 07/18/18 at 22:00 Insulin Aspart (Novolog Insulin Pen) NOVOLOG *MILD* ALGORITHM WITH MEALS BEDTIME SC Last administered on 07/19/18 21:06; Admin Dose 4 UNIT; Start 07/19/18 at 07:55 Miscellaneous Information 1 ea NOTE XX ; Start 07/19/18 at 04:00 Glucose (Glutose) 15 gm Q15M PRN PO DECREASED GLUCOSE; Start 07/19/18 at 04:00 Glucose (Glutose) 22.5 gm Q15M PRN PO DECREASED GLUCOSE; Start 07/19/18 at 04:00 Dextrose (D50w Syringe) 25 ml Q15M PRN IV DECREASED GLUCOSE; Start 07/19/18 at 04:00 Dextrose (D50w Syringe) 50 ml Q15M PRN IV DECREASED GLUCOSE; Start 07/19/18 at 04:00 Glucagon (Glucagen) 1 mg Q15M PRN IM DECREASED GLUCOSE; Start 07/19/18 at 04:00 Glucose (Glutose) 15 gm Q15M PRN BUCCAL DECREASED GLUCOSE; Start 07/19/18 at 04:00 Propofol (Diprivan) 20 mg ONCE ONCE IV ; Start 07/20/18 at 09:30; Stop 07/20/18 at 09:31 WARREN HOLLIS Jul 20, 2018 09:31
[2018-07-20] MEDS ORDERED: morphine 2 MG INJ IV STA (11:10)
--- NOTE | 2018-07-20 11:44 | PN ---
Date/Time of Note Date/Time of Note DATE: 07/20/18 TIME: 11:43 Assessment/Plan VTE Prophylaxis Risk score (from Nsg)>0 risk: 5 SCD applied (from Nsg): Yes Pharmacological prophylaxis: heparin Lines/Catheters IV Catheter Type (from Nrsg): Peripheral IV Assessment/Plan Hospital Course EXAM: Appears well, comfortable MV via trach Poor air entry on R Abdomen obese, soft nt No edema 68 yo male with chronic respiratory failure with trach normally to room air, A Fib, DMII who presents with hypoxia with XR showing R lung collapse Lung collapse leading to hypoxia: - Plan for bronchoscopy today, thoracentesis attempted but inadeate fluid - Will continue empiric abx for now, low threshold to dc - Continue mechanical ventilation for now DMII - Basal/bolus insulin A Fib: - Hold Xarelto for procedures Diastolic CHF: - Compensated Anemia of unclear etiology: - Check iron stores CKD III: - Stable, trend creatinine Dc when stable to NH Result Diagram: 07/20/18 0614 07/20/1814 Results 24hrs Laboratory Tests Test 07/19/18 13:48 07/19/18 17:27 07/19/18 21:02 07/20/18 02:04 Platelet Count 302 Prothrombin Time 16.8 H Prothrombin Time Ratio 1.3 INR International 1.35 Normalized Ratio Activated 31.5 Partial Thromboplast Time Thrombin Time 17.8 Bedside Glucose 243 H 367 H 174 Test 07/20/18 06:14 07/20/18 09:05 White Blood Count 21.2 H Red Blood Count 2.95 L Hemoglobin 7.1 L Hematocrit 24.3 L Mean Corpuscular Volume 82.4 Mean Corpuscular 24.1 L Hemoglobin Mean Corpuscular 29.2 L Hemoglobin Concent Red Cell Distribution 14.5 Width Platelet Count 298 Mean Platelet Volume 9.5 Immature Granulocytes % 1.200 H Neutrophils % 85.1 H Lymphocytes % 5.0 L Monocytes % 6.7 Eosinophils % 1.7 Basophils % 0.3 Nucleated Red Blood 0.0 Cells % Immature Granulocytes # 0.250 H Neutrophils # 18.1 H Lymphocytes # 1.1 Monocytes # 1.4 H Eosinophils # 0.4 Basophils # 0.1 Nucleated Red Blood 0.0 Cells # Sodium Level 136 Potassium Level 4.3 Chloride Level 106 Carbon Dioxide Level 25 Anion Gap 5 Blood Urea Nitrogen 45 H Creatinine 2.13 H Est Glomerular Filtrat 31 L Rate mL/min Glucose Level 159 Calcium Level 8.6 Iron Level < 10 L Total Iron Binding 182 L Capacity Percent Iron Saturation Ferritin 113.0 Bedside Glucose 192 Subjective 24 Hr Interval Summary Free Text/Dictation Inadequate fluid present to perform thora Stable otherwise Pending bronch Exam/Review of Systems Exam Vitals Vital Signs Date Temp Pulse Resp B/P (MAP) Pulse Ox O2 O2 Flow FiO2 Time Delivery Rate 07/20/18 98.7 77 18 127/61 97 Mechanical 11:13 (83) Ventilator 07/20/18 40 11:07 Intake and Output 07/19/18 07/19/18 07/20/18 1515:00 23:00 07:00 IntakeIntake Total 200 ml 450 ml 120 ml OutputOutput Total 650 ml BalanceBalance 200 ml 450 ml -530 ml Results Results 24hrs Laboratory Tests Test 07/19/18 13:48 07/19/18 17:27 07/19/18 21:02 07/20/18 02:04 Platelet Count 302 Prothrombin Time 16.8 H Prothrombin Time Ratio 1.3 INR International 1.35 Normalized Ratio Activated 31.5 Partial Thromboplast Time Thrombin Time 17.8 Bedside Glucose 243 H 367 H 174 Test 07/20/18 06:14 07/20/18 09:05 White Blood Count 21.2 H Red Blood Count 2.95 L Hemoglobin 7.1 L Hematocrit 24.3 L Mean Corpuscular Volume 82.4 Mean Corpuscular 24.1 L Hemoglobin Mean Corpuscular 29.2 L Hemoglobin Concent Red Cell Distribution 14.5 Width Platelet Count 298 Mean Platelet Volume 9.5 Immature Granulocytes % 1.200 H Neutrophils % 85.1 H Lymphocytes % 5.0 L Monocytes % 6.7 Eosinophils % 1.7 Basophils % 0.3 Nucleated Red Blood 0.0 Cells % Immature Granulocytes # 0.250 H Neutrophils # 18.1 H Lymphocytes # 1.1 Monocytes # 1.4 H Eosinophils # 0.4 Basophils # 0.1 Nucleated Red Blood 0.0 Cells # Sodium Level 136 Potassium Level 4.3 Chloride Level 106 Carbon Dioxide Level 25 Anion Gap 5 Blood Urea Nitrogen 45 H Creatinine 2.13 H Est Glomerular Filtrat 31 L Rate mL/min Glucose Level 159 Calcium Level 8.6 Iron Level < 10 L Total Iron Binding 182 L Capacity Percent Iron Saturation Ferritin 113.0 Bedside Glucose 192 Medications Medication Current Medications Acetaminophen (Tylenol Tab) 650 mg Q4H PRN PO MILD PAIN LEVEL 1-3; Start 07/18/18 at 18:00 Albuterol (Proventil 0.083% (Neb)) 2.5 mg Q4H PRN NEB TRACHEOSTOMY; Start 07/18/18 at 18:00 Ascorbic Acid (Vitamin C) 500 mg DAILY PO Last administered on 07/19/18 09:00; Admin Dose 500 MG; Start 07/19/18 at 09:00 Chlorhexidine Gluconate (Peridex) 15 ml Q12H MM Last administered on 07/20/18 05:29; Admin Dose 15 ML; Start 07/18/18 at 18:00 Digoxin (Digoxin) 0.25 mg DAILY@1300 PO Last administered on 07/19/18 12:49; Admin Dose 0.25 MG; Start 07/19/18 at 13:00 Lorazepam (Ativan) 1 mg Q6 PRN PO ANXIETY; Start 07/18/18 at 18:00 Pantoprazole (Protonix Tab) 40 mg AC BREAKFAST PO Last administered on 07/19/18at 06:43; Admin Dose 40 MG; Start 07/19/18 at 07:00 Polyethylene Glycol (Miralax) 17 gm DAILY PO ; Start 07/19/18 at 09:00 Rivaroxaban (Xarelto) 15 mg WITH DINNER PO Last administered on 07/18/18at 20:02; Admin Dose 15 MG; Start 07/18/18 at 18:00; Status Hold Sucralfate (Carafate) 1 gm AC MEALS AND BEDTIME PO Last administered on 07/19/18 21:00; Admin Dose 1 GM; Start 07/18/18 at 21:00 Piperacillin Sod/ Tazobactam Sod 100 ml @ 200 mls/hr Q8 IVPB Last administered on 07/20/18 05:29; Admin Dose 200 MLS/HR; Start 07/18/18 at 22:00 Insulin Aspart (Novolog Insulin Pen) NOVOLOG *MILD* ALGORITHM WITH MEALS BEDTIME SC Last administered on 07/19/18 21:06; Admin Dose 4 UNIT; Start 07/19/18 at 07:55 Miscellaneous Information 1 ea NOTE XX ; Start 07/19/18 at 04:00 Glucose (Glutose) 15 gm Q15M PRN PO DECREASED GLUCOSE; Start 07/19/18 at 04:00 Glucose (Glutose) 22.5 gm Q15M PRN PO DECREASED GLUCOSE; Start 07/19/18 at 04:00 Dextrose (D50w Syringe) 25 ml Q15M PRN IV DECREASED GLUCOSE; Start 07/19/18 at 04:00 Dextrose (D50w Syringe) 50 ml Q15M PRN IV DECREASED GLUCOSE; Start 07/19/18 at 04:00 Glucagon (Glucagen) 1 mg Q15M PRN IM DECREASED GLUCOSE; Start 07/19/18 at 04:00 Glucose (Glutose) 15 gm Q15M PRN BUCCAL DECREASED GLUCOSE; Start 07/19/18 at 04:00 CHICO VARGAS MD Jul 20, 2018 11:44
--- NOTE | 2018-07-20 13:56 | OPPN ---
Date/Time of Note Date/Time of Note DATE: 07/20/18 TIME: 13:52 Operative Report Preoperative Diagnosis Right lung atelectasis Postoperative Diagnosis Complete right mainstem bronchus from mucous plugging no endobronchial lesion seen. Operation/Procedure Performed Bronchoscopy Surgeon Informed consent was obtained from the patient earlier.. Patient was on ventilator via tracheostomy. Patient was given a total of 40 mg of propofol in 20 mg increments. Bronchoscope was introduced via tracheostomy. Distal trachea was normal. There was complete right mainstem occlusion with mucus which was readily suctioned out. After which the right upper lobe, bronchus intermedius and lower lobes were inspected they were completely normal and free of any endobronchial pathology. After that left side was was inspected which was completely free of any lesions or any mucus plugging. Bronchoscope was withdrawn. Patient maintained stable O2 saturation cardiac rhythm and hemodynamics. Start time was 1:30 PM finish time was 1:40 PM see signature line drafter assistant RT Anesthesia: moderate sedation Estimated blood loss: none Transfusion Required Nurse Specimen None Grafts/Implants none Complications none WARREN HOLLIS Jul 20, 2018 13:56
[2018-07-20] MEDS ORDERED: VANCOMYCIN IV PER PHARMACY XX SCH (14:00)
[2018-07-20] MEDS: DIGOXIN 0.25 MG TAB PO SCH (14:39)
[2018-07-20] MEDS ORDERED: VANCOMYCIN 1 GM 250 ML IVPB SCH (22:00)
[2018-07-20] MEDS ORDERED: INSULIN ASPART [NOVOLOG] 3 ML PEN SC ONE (22:00)
[2018-07-21] VITALS (22 sets, daily range): BP systolic 105–142; BP diastolic 57–67; PULSE 62–85; RESP 15–23
[2018-07-21] MEDS: LORAZEPAM 1 MG TAB PO PRN ×2 (00:28→22:57)
[2018-07-21] MEDS: CHLORHEXIDINE GLUCONATE 15 ML UD CUP MM SCH ×2 (06:05→18:05)
[2018-07-21] MEDS: PIPER-TAZO 3.375 GM IV (PMX) 100 ML IVPB SCH ×3 (06:06→21:10)
[2018-07-21] MEDS: PANTOPRAZOLE (EC) 40 MG TAB PO SCH (07:25)
[2018-07-21] MEDS: SUCRALFATE 1 GM TAB PO SCH ×4 (07:25→20:24)
[2018-07-21] MEDS: INSULIN ASPART [NOVOLOG] 3 ML PEN SC SCH ×5 (08:34→20:31)
[2018-07-21] MEDS: ASCORBIC ACID 500 MG TAB PO SCH (09:00)
[2018-07-21] MEDS: POLYETHYLENE GLYCOL 17 GM PACKET PO SCH (09:00)
[2018-07-21] MEDS: DIGOXIN 0.25 MG TAB PO SCH (12:28)
--- NOTE | 2018-07-21 12:46 | PN ---
Date/Time of Note Date/Time of Note DATE: 07/21/18 TIME: 12:39 Assessment/Plan VTE Prophylaxis Risk score (from Nsg)>0 risk: 7 SCD applied (from Nsg): Yes Pharmacological prophylaxis: heparin Lines/Catheters IV Catheter Type (from Nrsg): Saline Lock Assessment/Plan Hospital Course EXAM: Appears well, comfortable MV via trach Poor air entry on R Abdomen obese, soft nt No edema 68 yo male with chronic respiratory failure with trach normally to room air, A Fib, DMII who presents with hypoxia with XR showing R lung collapse Lung collapse leading to hypoxia: - s/p bronchoscopy 07/20 with mucous impaction discovered. XR continues to show R lung collapse however. Thoracentesis attempted but inadeate fluid - Continue abx x 7 day course - Continue mechanical ventilation for now. Normally is on trach collar apparently - Manageemnt per pulmonary DMII - Basal/bolus insulin A Fib: - Hold Xarelto for procedures Diastolic CHF: - Compensated Anemia of unclear etiology: - Choreic inflammation demonstrated by iron stores CKD III: - Stable, trend creatinine Dc when stable to NH Result Diagram: 07/20/18 0614 07/21/18 0741 Results 24hrs Laboratory Tests Test 07/20/18 13:03 07/20/18 18:01 07/20/18 21:01 07/20/18 21:42 Bedside Glucose 171 340 H 319 H Vancomycin Level Trough 13.4 Test 07/21/18 07:41 07/21/18 08:13 07/21/18 12:26 Sodium Level 136 Potassium Level 4.4 Chloride Level 108 Carbon Dioxide Level 24 Anion Gap 4 L Blood Urea Nitrogen 45 H Creatinine 2.35 H Est Glomerular Filtrat 28 L Rate mL/min Glucose Level 210 Calcium Level 8.4 Iron Level 12 L Total Iron Binding 170 L Capacity Percent Iron Saturation 7 L Ferritin 121.0 Bedside Glucose 222 H 372 H Subjective 24 Hr Interval Summary Free Text/Dictation Underwent bronchoscoyp yesterday, mucous impaction found Vanco restarted CXR shows continued R lung collapse Exam/Review of Systems Exam Vitals Vital Signs Date Temp Pulse Resp B/P (MAP) Pulse Ox O2 O2 Flow FiO2 Time Delivery Rate 07/21/18 97.7 73 16 136/60 100 Mechanical 12:15 (85) Ventilator 07/21/18 40 11:10 Intake and Output 07/20/18 07/20/18 07/21/18 1515:00 23:00 07:00 IntakeIntake Total 900 ml OutputOutput Total 500 ml BalanceBalance 400 ml Results Results 24hrs Laboratory Tests Test 07/20/18 13:03 07/20/18 18:01 07/20/18 21:01 07/20/18 21:42 Bedside Glucose 171 340 H 319 H Vancomycin Level Trough 13.4 Test 07/21/18 07:41 07/21/18 08:13 07/21/18 12:26 Sodium Level 136 Potassium Level 4.4 Chloride Level 108 Carbon Dioxide Level 24 Anion Gap 4 L Blood Urea Nitrogen 45 H Creatinine 2.35 H Est Glomerular Filtrat 28 L Rate mL/min Glucose Level 210 Calcium Level 8.4 Iron Level 12 L Total Iron Binding 170 L Capacity Percent Iron Saturation 7 L Ferritin 121.0 Bedside Glucose 222 H 372 H Medications Medication Current Medications Acetaminophen (Tylenol Tab) 650 mg Q4H PRN PO MILD PAIN LEVEL 1-3; Start 07/18/18 at 18:00 Albuterol (Proventil 0.083% (Neb)) 2.5 mg Q4H PRN NEB TRACHEOSTOMY; Start 07/18/18 at 18:00 Ascorbic Acid (Vitamin C) 500 mg DAILY PO Last administered on 07/21/18 09:00; Admin Dose 500 MG; Start 07/19/18 at 09:00 Chlorhexidine Gluconate (Peridex) 15 ml Q12H MM Last administered on 07/21/18 06:05; Admin Dose 15 ML; Start 07/18/18 at 18:00 Digoxin (Digoxin) 0.25 mg DAILY@1300 PO Last administered on 07/20/18at 14:39; Admin Dose 0.25 MG; Start 07/19/18 at 13:00 Lorazepam (Ativan) 1 mg Q6 PRN PO ANXIETY Last administered on 07/21/18 00:28; Admin Dose 1 MG; Start 07/18/18 at 18:00 Pantoprazole (Protonix Tab) 40 mg AC BREAKFAST PO Last administered on 07/21/18 07:25; Admin Dose 40 MG; Start 07/19/18 at 07:00 Polyethylene Glycol (Miralax) 17 gm DAILY PO Last administered on 07/21/18 09:00; Admin Dose 17 GM; Start 07/19/18 at 09:00 Rivaroxaban (Xarelto) 15 mg WITH DINNER PO Last administered on 07/18/18at 20:02; Admin Dose 15 MG; Start 07/18/18 at 18:00; Status Hold Sucralfate (Carafate) 1 gm AC MEALS AND BEDTIME PO Last administered on 07/21/18at 07:25; Admin Dose 1 GM; Start 07/18/18 at 21:00 Piperacillin Sod/ Tazobactam Sod 100 ml @ 200 mls/hr Q8 IVPB Last administered on 07/21/18at 06:06; Admin Dose 200 MLS/HR; Start 07/18/18 at 22:00 Insulin Aspart (Novolog Insulin Pen) NOVOLOG *MILD* ALGORITHM WITH MEALS BEDTIME SC Last administered on 07/21/18at 08:34; Admin Dose 3 UNIT; Start 07/19/18 at 07:55 Miscellaneous Information 1 ea NOTE XX ; Start 07/19/18 at 04:00 Glucose (Glutose) 15 gm Q15M PRN PO DECREASED GLUCOSE; Start 07/19/18 at 04:00 Glucose (Glutose) 22.5 gm Q15M PRN PO DECREASED GLUCOSE; Start 07/19/18 at 04:00 Dextrose (D50w Syringe) 25 ml Q15M PRN IV DECREASED GLUCOSE; Start 07/19/18 at 04:00 Dextrose (D50w Syringe) 50 ml Q15M PRN IV DECREASED GLUCOSE; Start 07/19/18 at 04:00 Glucagon (Glucagen) 1 mg Q15M PRN IM DECREASED GLUCOSE; Start 07/19/18 at 04:00 Glucose (Glutose) 15 gm Q15M PRN BUCCAL DECREASED GLUCOSE; Start 07/19/18 at 04:00 Vancomycin HCl (Vanco Iv Per Pharmacy) VANCOMYCIN PER PHARMACY PER PROTOCOL XX ; Start 07/20/18 at 14:00 Vancomycin HCl 250 ml @ 125 mls/hr Q24H IVPB Last administered on 07/20/18at 21:58; Admin Dose 125 MLS/HR; Start 07/20/18 at 22:00 Insulin Glargine (Lantus) 19 units DAILY@2000 SC ; Start 07/21/18 at 20:00 Insulin Aspart (Novolog Insulin Pen) 6 unit WITH MEALS SC ; Start 07/21/18 at 17:55 CHICO VARGAS MD Jul 21, 2018 12:46
[2018-07-21] MEDS ORDERED: INSULIN ASPART [NOVOLOG] 3 ML PEN SC ONE ×2 (13:30→20:30)
--- NOTE | 2018-07-21 15:36 | CONS ---
Consult Date/Type/Reason Admit Date/Time Jul 18, 2018 at 16:47 Initial Consult Date 07/19/18 Type of Consultation: Pulm Date/Time of Note DATE: 07/21/18 TIME: 15:34 Subjective s/p bronchoscopy and suctioning of right mainstem mucus plug yesterday. Today CXR shows persistent right lung complete ATX. Objective Vitals Vital Signs Date Temp Pulse Resp B/P (MAP) Pulse Ox O2 O2 Flow FiO2 Time Delivery Rate 07/21/18 67 21 99 40 15:15 07/21/18 97.5 142/63 Mechanical 15:04 (89) Ventilator Intake and Output 07/20/18 07/20/18 07/21/18 1515:00 23:00 07:00 IntakeIntake Total 900 ml OutputOutput Total 500 ml BalanceBalance 400 ml Exam HEENT: Neck supple; no JVD; no LAD; + trach CVS: RRR, S1 and S2 CHEST: Absent right-sided BS ABD: Soft, NT, + BS EXT: No c/c/e Results/Medications Result Diagram: 07/20/18 0614 07/21/18 0741 Results 24 hrs Laboratory Tests Test 07/20/18 18:01 07/20/18 21:01 07/20/18 21:42 07/21/18 07:41 Bedside Glucose 340 H 319 H Vancomycin Level Trough 13.4 Sodium Level 136 Potassium Level 4.4 Chloride Level 108 Carbon Dioxide Level 24 Anion Gap 4 L Blood Urea Nitrogen 45 H Creatinine 2.35 H Est Glomerular Filtrat 28 L Rate mL/min Glucose Level 210 Calcium Level 8.4 Iron Level 12 L Total Iron Binding 170 L Capacity Percent Iron Saturation 7 L Ferritin 121.0 Test 07/21/18 08:13 07/21/18 12:26 Bedside Glucose 222 H 372 H Home Meds Reported Medications Insulin Aspart* (Novolog Insulin Pen*) 100 Unit/Ml Soln, 0 SC .SLIDING SCALE AC, EA OR 5 UNITS AC MEALS TID 07/18/18 Insulin Glargine,Hum.rec.anlog (Basaglar Kwikpen U-100) 100 Unit/1 Ml Insuln.pen, 28 UNIT SC QHS, EA 07/18/18 Insulin Glargine,Hum.rec.anlog (Basaglar Kwikpen U-100) 100 Unit/1 Ml Insuln.pen, 18 UNIT SC QAM, EA 07/18/18 Acetaminophen* (Acetaminophen*) 500 MG Extra Strength Tablet, 1000 MG PO Q8H PRN for PAIN, TAB 07/18/18 Acetaminophen* (Tylenol*) 325 Mg Tablet, 650 MG PO Q4H PRN for MILD PAIN LEVEL 1-3, TAB AND FEVER 07/18/18 Ascorbic Acid (Vitamin C) 500 Mg Tab, 500 MG PO DAILY, TAB 07/18/18 Lorazepam* (Lorazepam*) 1 Mg Tablet, 1 MG PO Q6 PRN for ANXIETY, #60 TAB 07/18/18 Sucralfate* (Carafate*) 1 Gm Tab, 1 GM PO AC MEALS AND BEDTIME, TAB 07/18/18 Rivaroxaban* (Xarelto*) 15 Mg Tablet, 15 MG PO WITH DINNER, TAB 07/18/18 Multivitamin with Minerals (Multivitamins with Minerals) 1 Each Tablet, 1 EACH PO DAILY, TAB 07/18/18 Pantoprazole* (Pantoprazole*) 40 Mg Tablet.dr, 40 MG PO AC BREAKFAST, TAB 07/18/18 Polyethylene Glycol* (Miralax*) 17 Gm Powd.pack, 17 GM PO DAILY, #30 PACKET 07/18/18 Ferrous Sulfate* (Ferrous Sulfate*) 325 Mg Tabec, 325 MG PO DAILY, TAB 07/18/18 Digoxin* (Digitek*) 250 Mcg Tablet, 0.25 MG PO DAILY, TAB HOLD IF HR<60 07/18/18 Cranberry Fruit (CRANBERRY) 450 Mg Tablet, 450 MG PO DAILY, TAB 07/18/18 Chlorhexidine Gluconate (Peridex) 473 Ml Mouthwash, 15 ML MM Q12H, BOTTLE 07/18/18 Ipratropium-Albuterol (Ipratropium-Albuterol) 0.5-3 Mg/3 Ml Ampul.neb, 3 ML INHALATION Q4H PRN for VIA TRACHEOSTOMY, #30 VIAL 07/18/18 Albuterol Sulfate* (Albuterol Sulfate* Neb) 0.083%-3 Ml Neb, 2.5 MG NEB Q4H PRN for TRACHEOSTOMY, #30 VIAL AND Q6H NEEDED 07/18/18 Discontinued Reported Medications Multivitamins* (Multivitamins*) 1 Each Tablet, 1 TAB PO DAILY, TAB 10/24/16 Chlorhexidine Gluconate* (Chlorhexidine Gluconate*) 118 Ml Liquid, 15 ML TOP Q12, ML 10/24/16 Albuterol Sulfate* (Albuterol Sulfate* Neb) 0.083%-3 Ml Neb, 2.5 MG PE NEB Q6H PRN for WHEEZING AND SOB, #30 VIAL 10/24/16 Ipratropium-Albuterol (Ipratropium-Albuterol) 0.5-3 Mg/3 Ml Ampul.neb, 3 ML INHALATION Q4 PRN for SHORTNESS OF BREATH, #30 VIAL 10/24/16 Albuterol Sulfate* (Albuterol Sulfate* Neb) 0.083%-3 Ml Neb, 2.5 MG NEB Q4 PRN for SHORTNESS OF BREATH, #30 VIAL 10/24/16 Acetaminophen* (Tylenol*) 325 Mg Tablet, 650 MG PO Q4H PRN for MILD PAIN LEVEL 1-3, TAB 10/24/16 Tramadol HCl (Tramadol HCl) 50 Mg Tablet, 100 MG PO Q8, #120 TAB 10/24/16 Sucralfate (Carafate) 1 Gm Tablet, 1 GM PO AC BREAKFAST BEDTIME, TAB 10/24/16 Rivaroxaban* (Xarelto*) 15 Mg Tablet, 15 MG PO WITH DINNER, TAB 10/24/16 Pantoprazole (Protonix) 40 Mg Tabec, 40 MG PO DAILY, TAB 10/24/16 Polyethylene Glycol* (Miralax*) 17 Gm Powd.pack, 17 GM PO DAILY, #30 PACKET 10/24/16 Ferrous Sulfate* (Ferrous Sulfate*) 325 Mg Tabec, 325 MG PO DAILY, TAB 10/24/16 Digoxin* (Lanoxin*) 0.25 Mg Tablet, 0.25 MG PO DAILY, TAB 10/24/16 Cranberry Fruit Concentrate (CRANBERRY) 450 Mg Capsule, 450 MG PO DAILY, CAP 10/24/16 Discontinued Scripts Levofloxacin* (Levaquin*) 500 Mg Tablet, 500 MG PO DAILY for 7 Days, TAB Prov:AMISHA UNR JEWEL SAWYER 10/26/16 Furosemide* (Furosemide*) 40 Mg Tablet, 40 MG PO BID DIURETICS for 30 Days, TAB Prov:AMISHA NUR JEWEL SAWYER 10/26/16 Lisinopril* (Lisinopril*) 5 Mg Tablet, 5 MG PO BID for 30 Days, TAB Prov:AMISHA NUR JEWEL SAWYER 10/26/16 Medications Current Medications Acetaminophen (Tylenol Tab) 650 mg Q4H PRN PO MILD PAIN LEVEL 1-3; Start 07/18/18 at 18:00 Albuterol (Proventil 0.083% (Neb)) 2.5 mg Q4H PRN NEB TRACHEOSTOMY; Start 07/18/18 at 18:00 Ascorbic Acid (Vitamin C) 500 mg DAILY PO Last administered on 07/21/18 09:00; Admin Dose 500 MG; Start 07/19/18 at 09:00 Chlorhexidine Gluconate (Peridex) 15 ml Q12H MM Last administered on 07/21/18 06:05; Admin Dose 15 ML; Start 07/18/18 at 18:00 Digoxin (Digoxin) 0.25 mg DAILY@1300 PO Last administered on 07/21/18 12:28; Admin Dose 0.25 MG; Start 07/19/18 at 13:00 Lorazepam (Ativan) 1 mg Q6 PRN PO ANXIETY Last administered on 07/21/18 00:28; Admin Dose 1 MG; Start 07/18/18 at 18:00 Pantoprazole (Protonix Tab) 40 mg AC BREAKFAST PO Last administered on 07/21/18 07:25; Admin Dose 40 MG; Start 07/19/18 at 07:00 Polyethylene Glycol (Miralax) 17 gm DAILY PO Last administered on 07/21/18 09:00; Admin Dose 17 GM; Start 07/19/18 at 09:00 Rivaroxaban (Xarelto) 15 mg WITH DINNER PO Last administered on 07/18/18 20:02; Admin Dose 15 MG; Start 07/18/18 at 18:00; Status Hold Sucralfate (Carafate) 1 gm AC MEALS AND BEDTIME PO Last administered on 07/21/18 11:20; Admin Dose 1 GM; Start 07/18/18 at 21:00 Piperacillin Sod/ Tazobactam Sod 100 ml @ 200 mls/hr Q8 IVPB Last administered on 07/21/18 06:06; Admin Dose 200 MLS/HR; Start 07/18/18 at 22:00 Insulin Aspart (Novolog Insulin Pen) NOVOLOG *MILD* ALGORITHM WITH MEALS BEDTIME SC Last administered on 07/21/18at 12:40; Admin Dose 7 UNIT; Start 07/19/18 at 07:55 Miscellaneous Information 1 ea NOTE XX ; Start 07/19/18 at 04:00 Glucose (Glutose) 15 gm Q15M PRN PO DECREASED GLUCOSE; Start 07/19/18 at 04:00 Glucose (Glutose) 22.5 gm Q15M PRN PO DECREASED GLUCOSE; Start 07/19/18 at 04:00 Dextrose (D50w Syringe) 25 ml Q15M PRN IV DECREASED GLUCOSE; Start 07/19/18 at 04:00 Dextrose (D50w Syringe) 50 ml Q15M PRN IV DECREASED GLUCOSE; Start 07/19/18 at 04:00 Glucagon (Glucagen) 1 mg Q15M PRN IM DECREASED GLUCOSE; Start 07/19/18 at 04:00 Glucose (Glutose) 15 gm Q15M PRN BUCCAL DECREASED GLUCOSE; Start 07/19/18 at 04:00 Vancomycin HCl (Vanco Iv Per Pharmacy) VANCOMYCIN PER PHARMACY PER PROTOCOL XX ; Start 07/20/18 at 14:00 Vancomycin HCl 250 ml @ 125 mls/hr Q24H IVPB Last administered on 07/20/18at 21:58; Admin Dose 125 MLS/HR; Start 07/20/18 at 22:00 Insulin Glargine (Lantus) 19 units DAILY@2000 SC ; Start 07/21/18 at 20:00 Insulin Aspart (Novolog Insulin Pen) 6 unit WITH MEALS SC ; Start 07/21/18 at 17:55 Assessment/Plan Assessment/Plan (Daily) IMP: 1. Chronic Resp Failure/Vent Dependence 2. Right-sided pneumonia and parapneumonic effusion 3. Complete right lung atelectasis RECS: 1. Start Q4 hour duonebs with mucomyst 2. Start Q4 CPT 3. Continue Abx SEAN GUTHRIE MD Jul 21, 2018 15:36
[2018-07-21] MEDS ORDERED: ACETYLCYSTEINE 20% 4 ML VIAL NEB ONE (16:00)
[2018-07-21] MEDS: ALBUTEROL/IPRATROPIUM (NEB) 3 ML AMP HHN SCH ×2 (17:24→21:05)
[2018-07-21] MEDS: ACETYLCYSTEINE 20% 4 ML VIAL NEB SCH ×2 (17:26→21:05)
[2018-07-21] MEDS: INSULIN GLARGINE [LANTus] (100 UNITS/ML) SYG SC SCH (20:37)
[2018-07-22] VITALS (21 sets, daily range): BP systolic 104–135; BP diastolic 56–73; PULSE 65–87; RESP 14–24
[2018-07-22] MEDS: ALBUTEROL 0.083% (NEB) 2.5 MG/3 ML AMP NEB PRN ×2 (01:08→05:07)
[2018-07-22] MEDS: ACETYLCYSTEINE 20% 4 ML VIAL NEB SCH ×6 (01:08→21:05)
[2018-07-22] MEDS ORDERED: INSULIN ASPART [NOVOLOG] 3 ML PEN SC ONE (01:30)
[2018-07-22] MEDS: PANTOPRAZOLE (EC) 40 MG TAB PO SCH (06:32)
[2018-07-22] MEDS: SUCRALFATE 1 GM TAB PO SCH ×4 (06:32→20:21)
[2018-07-22] MEDS: CHLORHEXIDINE GLUCONATE 15 ML UD CUP MM SCH ×2 (06:32→18:06)
[2018-07-22] MEDS: PIPER-TAZO 3.375 GM IV (PMX) 100 ML IVPB SCH ×3 (06:33→21:03)
[2018-07-22] MEDS: ALBUTEROL/IPRATROPIUM (NEB) 3 ML AMP HHN SCH ×4 (08:11→21:05)
[2018-07-22] MEDS: ASCORBIC ACID 500 MG TAB PO SCH (08:37)
[2018-07-22] MEDS: POLYETHYLENE GLYCOL 17 GM PACKET PO SCH (08:38)
[2018-07-22] MEDS: INSULIN ASPART [NOVOLOG] 3 ML PEN SC SCH ×7 (08:41→20:37)
[2018-07-22] MEDS: VANCOMYCIN 1 GM 250 ML IVPB SCH (12:09)
--- NOTE | 2018-07-22 12:39 | CONS ---
Consult Date/Type/Reason Admit Date/Time Jul 18, 2018 at 16:47 Initial Consult Date 07/19/18 Type of Consultation: Pulm Date/Time of Note DATE: 07/22/18 TIME: 12:37 Subjective No events. Right lung remains completely atelectatic despite CPT/suctioning/mucolytics. Objective Vitals Vital Signs Date Temp Pulse Resp B/P (MAP) Pulse Ox O2 O2 Flow FiO2 Time Delivery Rate 07/22/18 100.0 74 16 127/59 100 Mechanica 11:55 (81) l Ventilato r 07/22/18 40 09:24 Intake and Output 07/21/18 07/21/18 07/22/18 1515:00 23:00 07:00 IntakeIntake Total 1000 ml 850 ml 600 ml OutputOutput Total 800 ml 950 ml 750 ml BalanceBalance 200 ml -100 ml -150 ml Exam HEENT: Neck supple; no JVD; no LAD; + trach CVS: RRR, S1 and S2 CHEST: Absent right-sided BS ABD: Soft, NT, + BS EXT: No c/c/e Results/Medications Result Diagram: 07/20/18 0614 07/22/18 0613 Results 24 hrs Laboratory Tests Test 07/21/18 17:43 07/21/18 20:21 07/21/18 21:56 07/22/18 01:14 Bedside Glucose 281 H 351 H 294 H 324 H Test 07/22/18 03:05 07/22/18 06:13 07/22/18 07:50 07/22/18 11:56 Bedside Glucose 223 H 170 228 H Blood Urea Nitrogen 43 H Creatinine 2.19 H Random Vancomycin Level 13.5 Home Meds Reported Medications Insulin Aspart* (Novolog Insulin Pen*) 100 Unit/Ml Soln, 0 SC .SLIDING SCALE AC, EA OR 5 UNITS AC MEALS TID 07/18/18 Insulin Glargine,Hum.rec.anlog (Basaglar Kwikpen U-100) 100 Unit/1 Ml Insuln.pen, 28 UNIT SC QHS, EA 07/18/18 Insulin Glargine,Hum.rec.anlog (Basaglar Kwikpen U-100) 100 Unit/1 Ml Insuln.pen, 18 UNIT SC QAM, EA 07/18/18 Acetaminophen* (Acetaminophen*) 500 MG Extra Strength Tablet, 1000 MG PO Q8H PRN for PAIN, TAB 07/18/18 Acetaminophen* (Tylenol*) 325 Mg Tablet, 650 MG PO Q4H PRN for MILD PAIN LEVEL 1-3, TAB AND FEVER 07/18/18 Ascorbic Acid (Vitamin C) 500 Mg Tab, 500 MG PO DAILY, TAB 07/18/18 Lorazepam* (Lorazepam*) 1 Mg Tablet, 1 MG PO Q6 PRN for ANXIETY, #60 TAB 07/18/18 Sucralfate* (Carafate*) 1 Gm Tab, 1 GM PO AC MEALS AND BEDTIME, TAB 07/18/18 Rivaroxaban* (Xarelto*) 15 Mg Tablet, 15 MG PO WITH DINNER, TAB 07/18/18 Multivitamin with Minerals (Multivitamins with Minerals) 1 Each Tablet, 1 EACH PO DAILY, TAB 07/18/18 Pantoprazole* (Pantoprazole*) 40 Mg Tablet.dr, 40 MG PO AC BREAKFAST, TAB 07/18/18 Polyethylene Glycol* (Miralax*) 17 Gm Powd.pack, 17 GM PO DAILY, #30 PACKET 07/18/18 Ferrous Sulfate* (Ferrous Sulfate*) 325 Mg Tabec, 325 MG PO DAILY, TAB 07/18/18 Digoxin* (Digitek*) 250 Mcg Tablet, 0.25 MG PO DAILY, TAB HOLD IF HR<60 07/18/18 Cranberry Fruit (CRANBERRY) 450 Mg Tablet, 450 MG PO DAILY, TAB 07/18/18 Chlorhexidine Gluconate (Peridex) 473 Ml Mouthwash, 15 ML MM Q12H, BOTTLE 07/18/18 Ipratropium-Albuterol (Ipratropium-Albuterol) 0.5-3 Mg/3 Ml Ampul.neb, 3 ML INHALATION Q4H PRN for VIA TRACHEOSTOMY, #30 VIAL 07/18/18 Albuterol Sulfate* (Albuterol Sulfate* Neb) 0.083%-3 Ml Neb, 2.5 MG NEB Q4H PRN for TRACHEOSTOMY, #30 VIAL AND Q6H NEEDED 07/18/18 Discontinued Reported Medications Multivitamins* (Multivitamins*) 1 Each Tablet, 1 TAB PO DAILY, TAB 10/24/16 Chlorhexidine Gluconate* (Chlorhexidine Gluconate*) 118 Ml Liquid, 15 ML TOP Q12, ML 7/10/17 Albuterol Sulfate* (Albuterol Sulfate* Neb) 0.083%-3 Ml Neb, 2.5 MG PE NEB Q6H PRN for WHEEZING AND SOB, #30 VIAL 10/24/16 Ipratropium-Albuterol (Ipratropium-Albuterol) 0.5-3 Mg/3 Ml Ampul.neb, 3 ML INHALATION Q4 PRN for SHORTNESS OF BREATH, #30 VIAL 10/24/16 Albuterol Sulfate* (Albuterol Sulfate* Neb) 0.083%-3 Ml Neb, 2.5 MG NEB Q4 PRN for SHORTNESS OF BREATH, #30 VIAL 10/24/16 Acetaminophen* (Tylenol*) 325 Mg Tablet, 650 MG PO Q4H PRN for MILD PAIN LEVEL 1-3, TAB 10/24/16 Tramadol HCl (Tramadol HCl) 50 Mg Tablet, 100 MG PO Q8, #120 TAB 10/24/16 Sucralfate (Carafate) 1 Gm Tablet, 1 GM PO AC BREAKFAST BEDTIME, TAB 10/24/16 Rivaroxaban* (Xarelto*) 15 Mg Tablet, 15 MG PO WITH DINNER, TAB 10/24/16 Pantoprazole (Protonix) 40 Mg Tabec, 40 MG PO DAILY, TAB 10/24/16 Polyethylene Glycol* (Miralax*) 17 Gm Powd.pack, 17 GM PO DAILY, #30 PACKET 10/24/16 Ferrous Sulfate* (Ferrous Sulfate*) 325 Mg Tabec, 325 MG PO DAILY, TAB 10/24/16 Digoxin* (Lanoxin*) 0.25 Mg Tablet, 0.25 MG PO DAILY, TAB 10/24/16 Cranberry Fruit Concentrate (CRANBERRY) 450 Mg Capsule, 450 MG PO DAILY, CAP 10/24/16 Discontinued Scripts Levofloxacin* (Levaquin*) 500 Mg Tablet, 500 MG PO DAILY for 7 Days, TAB Prov:AMISHA NUR EXHA[employer] AND [employer] REPAIRER 10/26/16 Furosemide* (Furosemide*) 40 Mg Tablet, 40 MG PO BID DIURETICS for 30 Days, TAB Prov:AMISHA NUR [employer] REPAIRER 10/26/16 Lisinopril* (Lisinopril*) 5 Mg Tablet, 5 MG PO BID for 30 Days, TAB Prov:AMISHA NUR [employer] REPAIRER 10/26/16 Medications Current Medications Acetaminophen (Tylenol Tab) 650 mg Q4H PRN PO MILD PAIN LEVEL 1-3; Start 07/18/18 at 18:00 Albuterol (Proventil 0.083% (Neb)) 2.5 mg Q4H PRN NEB TRACHEOSTOMY Last administered on 07/22/18 05:07; Admin Dose 2.5 MG; Start 07/18/18 at 18:00 Ascorbic Acid (Vitamin C) 500 mg DAILY PO Last administered on 07/22/18 08:37; Admin Dose 500 MG; Start 07/19/18 at 09:00 Chlorhexidine Gluconate (Peridex) 15 ml Q12H MM Last administered on 07/22/18 06:32; Admin Dose 15 ML; Start 07/18/18 at 18:00 Digoxin (Digoxin) 0.25 mg DAILY@1300 PO Last administered on 07/21/18 12:28; Admin Dose 0.25 MG; Start 07/19/18 at 13:00 Lorazepam (Ativan) 1 mg Q6 PRN PO ANXIETY Last administered on 07/21/18 22:57; Admin Dose 1 MG; Start 07/18/18 at 18:00 Pantoprazole (Protonix Tab) 40 mg AC BREAKFAST PO Last administered on 07/22/18 06:32; Admin Dose 40 MG; Start 07/19/18 at 07:00 Polyethylene Glycol (Miralax) 17 gm DAILY PO Last administered on 07/21/18 09:00; Admin Dose 17 GM; Start 07/19/18 at 09:00 Rivaroxaban (Xarelto) 15 mg WITH DINNER PO Last administered on 07/18/18 20:02; Admin Dose 15 MG; Start 07/18/18 at 18:00; Status Hold Sucralfate (Carafate) 1 gm AC MEALS AND BEDTIME PO Last administered on 07/22/18 12:09; Admin Dose 1 GM; Start 07/18/18 at 21:00 Piperacillin Sod/ Tazobactam Sod 100 ml @ 200 mls/hr Q8 IVPB Last administered on 07/22/18 06:33; Admin Dose 200 MLS/HR; Start 07/18/18 at 22:00 Insulin Aspart (Novolog Insulin Pen) NOVOLOG *MILD* ALGORITHM WITH MEALS BEDTIME SC Last administered on 07/22/18at 12:24; Admin Dose 4 UNIT; Start 07/19/18 at 07:55 Miscellaneous Information 1 ea NOTE XX ; Start 07/19/18 at 04:00 Glucose (Glutose) 15 gm Q15M PRN PO DECREASED GLUCOSE; Start 07/19/18 at 04:00 Glucose (Glutose) 22.5 gm Q15M PRN PO DECREASED GLUCOSE; Start 07/19/18 at 04:00 Dextrose (D50w Syringe) 25 ml Q15M PRN IV DECREASED GLUCOSE; Start 07/19/18 at 04:00 Dextrose (D50w Syringe) 50 ml Q15M PRN IV DECREASED GLUCOSE; Start 07/19/18 at 04:00 Glucagon (Glucagen) 1 mg Q15M PRN IM DECREASED GLUCOSE; Start 07/19/18 at 04:00 Glucose (Glutose) 15 gm Q15M PRN BUCCAL DECREASED GLUCOSE; Start 07/19/18 at 04:00 Vancomycin HCl (Vanco Iv Per Pharmacy) VANCOMYCIN PER PHARMACY PER PROTOCOL XX ; Start 07/20/18 at 14:00 Insulin Glargine (Lantus) 19 units DAILY@2000 SC Last administered on 07/21/18at 20:37; Admin Dose 19 UNITS; Start 07/21/18 at 20:00 Insulin Aspart (Novolog Insulin Pen) 6 unit WITH MEALS SC Last administered on 07/22/18at 12:18; Admin Dose 6 UNIT; Start 07/21/18 at 17:55 Albuterol/ Ipratropium (Duoneb) 3 ml Q4HWA RESP THERAPY HHN Last administered on 07/22/18at 12:24; Admin Dose 3 ML; Start 07/21/18 at 17:00 Acetylcysteine (Mucomyst) 2 ml Q4H RESP THERAPY NEB Last administered on 07/22/18at 12:25; Admin Dose 2 ML; Start 07/21/18 at 17:00 Vancomycin HCl 250 ml @ 125 mls/hr Q36H IVPB Last administered on 07/22/18at 12:09; Admin Dose 125 MLS/HR; Start 07/22/18 at 12:00 Assessment/Plan Assessment/Plan (Daily) IMP: 1. Chronic Resp Failure/Vent Dependence 2. Right-sided pneumonia and parapneumonic effusion 3. Complete right lung atelectasis RECS: 1. Continue Q4 hour duonebs with mucomyst 2. Continue Q4 CPT 3. Continue Abx 4. May need repeat bronchoscopy with suctioning. 5. Am CXR SEAN GUTHRIE MD Jul 22, 2018 12:39
[2018-07-22] MEDS: DIGOXIN 0.25 MG TAB PO SCH (14:58)
--- NOTE | 2018-07-22 16:55 | PN ---
Date/Time of Note Date/Time of Note DATE: 07/22/18 TIME: 16:53 Assessment/Plan VTE Prophylaxis Risk score (from Nsg)>0 risk: 2 SCD applied (from Nsg): Yes Pharmacological prophylaxis: heparin Lines/Catheters IV Catheter Type (from Nrsg): Peripheral IV Urinary Cath still in place: No Assessment/Plan Hospital Course EXAM: Appears well, comfortable MV via trach Poor air entry on R Abdomen obese, soft nt No edema 68 yo male with chronic respiratory failure with trach normally to room air, A Fib, DMII who presents with hypoxia with XR showing R lung collapse Lung collapse leading to hypoxia: - s/p bronchoscopy 07/20 with mucous impaction discovered. XR continues to show R lung collapse however. Repeat bronchoscopy? Management per pulmonary - Thoracentesis attempted but inadequate fluid - Continue abx x 7 day course - Continue mechanical ventilation for now. Normally is on trach collar apparently DMII - Basal/bolus insulin A Fib: - Hold Xarelto for procedures Diastolic CHF: - Compensated Anemia of unclear etiology: - Choreic inflammation demonstrated by iron stores CKD III: - Stable, trend creatinine Dc when stable to NH Result Diagram: 07/20/18 0614 07/22/18 0613 Results 24hrs Laboratory Tests Test 07/21/18 17:43 07/21/18 20:21 07/21/18 21:56 07/22/18 01:14 Bedside Glucose 281 H 351 H 294 H 324 H Test 07/22/18 03:05 07/22/18 06:13 07/22/18 07:50 07/22/18 11:56 Bedside Glucose 223 H 170 228 H Blood Urea Nitrogen 43 H Creatinine 2.19 H Random Vancomycin Level 13.5 Subjective 24 Hr Interval Summary Free Text/Dictation XR still showed R lung collapse despite therapies Exam/Review of Systems Exam Vitals Vital Signs Date Temp Pulse Resp B/P (MAP) Pulse Ox O2 O2 Flow FiO2 Time Delivery Rate 07/22/18 81 24 100 40 16:45 07/22/18 98.3 131/61 Mechanical 15:15 (84) Ventilator Intake and Output 07/21/18 07/21/18 07/22/18 1515:00 23:00 07:00 IntakeIntake Total 1000 ml 850 ml 600 ml OutputOutput Total 800 ml 950 ml 750 ml BalanceBalance 200 ml -100 ml -150 ml Results Results 24hrs Laboratory Tests Test 07/21/18 17:43 07/21/18 20:21 07/21/18 21:56 07/22/18 01:14 Bedside Glucose 281 H 351 H 294 H 324 H Test 07/22/18 03:05 07/22/18 06:13 07/22/18 07:50 07/22/18 11:56 Bedside Glucose 223 H 170 228 H Blood Urea Nitrogen 43 H Creatinine 2.19 H Random Vancomycin Level 13.5 Medications Medication Current Medications Acetaminophen (Tylenol Tab) 650 mg Q4H PRN PO MILD PAIN LEVEL 1-3; Start 07/18/18 at 18:00 Albuterol (Proventil 0.083% (Neb)) 2.5 mg Q4H PRN NEB TRACHEOSTOMY Last administered on 07/22/18 05:07; Admin Dose 2.5 MG; Start 07/18/18 at 18:00 Ascorbic Acid (Vitamin C) 500 mg DAILY PO Last administered on 07/22/18 08:37; Admin Dose 500 MG; Start 07/19/18 at 09:00 Chlorhexidine Gluconate (Peridex) 15 ml Q12H MM Last administered on 07/22/18 06:32; Admin Dose 15 ML; Start 07/18/18 at 18:00 Digoxin (Digoxin) 0.25 mg DAILY@1300 PO Last administered on 07/22/18 14:58; Admin Dose 0.25 MG; Start 07/19/18 at 13:00 Lorazepam (Ativan) 1 mg Q6 PRN PO ANXIETY Last administered on 07/21/18 22:57; Admin Dose 1 MG; Start 07/18/18 at 18:00 Pantoprazole (Protonix Tab) 40 mg AC BREAKFAST PO Last administered on 07/22/18 06:32; Admin Dose 40 MG; Start 07/19/18 at 07:00 Polyethylene Glycol (Miralax) 17 gm DAILY PO Last administered on 07/21/18 09:00; Admin Dose 17 GM; Start 07/19/18 at 09:00 Rivaroxaban (Xarelto) 15 mg WITH DINNER PO Last administered on 07/18/18 20:02; Admin Dose 15 MG; Start 07/18/18 at 18:00; Status Hold Sucralfate (Carafate) 1 gm AC MEALS AND BEDTIME PO Last administered on 12:09; Admin Dose 1 GM; Start 07/18/18 at 21:00 Piperacillin Sod/ Tazobactam Sod 100 ml @ 200 mls/hr Q8 IVPB Last administered on 07/22/18 14:59; Admin Dose 200 MLS/HR; Start 07/18/18 at 22:00 Insulin Aspart (Novolog Insulin Pen) NOVOLOG *MILD* ALGORITHM WITH MEALS BEDTIME SC Last administered on 07/22/18 12:24; Admin Dose 4 UNIT; Start 07/19/18 at 07:55 Miscellaneous Information 1 ea NOTE XX ; Start 07/19/18 at 04:00 Glucose (Glutose) 15 gm Q15M PRN PO DECREASED GLUCOSE; Start 07/19/18 at 04:00 Glucose (Glutose) 22.5 gm Q15M PRN PO DECREASED GLUCOSE; Start 07/19/18 at 04:00 Dextrose (D50w Syringe) 25 ml Q15M PRN IV DECREASED GLUCOSE; Start 07/19/18 at 04:00 Dextrose (D50w Syringe) 50 ml Q15M PRN IV DECREASED GLUCOSE; Start 07/19/18 at 04:00 Glucagon (Glucagen) 1 mg Q15M PRN IM DECREASED GLUCOSE; Start 07/19/18 at 04:00 Glucose (Glutose) 15 gm Q15M PRN BUCCAL DECREASED GLUCOSE; Start 07/19/18 at 04:00 Vancomycin HCl (Vanco Iv Per Pharmacy) VANCOMYCIN PER PHARMACY PER PROTOCOL XX ; Start 07/20/18 at 14:00 Insulin Glargine (Lantus) 19 units DAILY@2000 SC Last administered on 07/21/18at 20:37; Admin Dose 19 UNITS; Start 07/21/18 at 20:00 Insulin Aspart (Novolog Insulin Pen) 6 unit WITH MEALS SC Last administered on 07/22/18 12:18; Admin Dose 6 UNIT; Start 07/21/18 at 17:55 Albuterol/ Ipratropium (Duoneb) 3 ml Q4HWA RESP THERAPY HHN Last administered on 07/22/18 16:05; Admin Dose 3 ML; Start 07/21/18 at 17:00 Acetylcysteine (Mucomyst) 2 ml Q4H RESP THERAPY NEB Last administered on 07/22/18 16:04; Admin Dose 2 ML; Start 07/21/18 at 17:00 Vancomycin HCl 250 ml @ 125 mls/hr Q36H IVPB Last administered on 07/22/18at 12:09; Admin Dose 125 MLS/HR; Start 07/22/18 at 12:00 CHICO VARGAS MD Jul 22, 2018 16:55
[2018-07-22] MEDS: INSULIN GLARGINE [LANTus] (100 UNITS/ML) SYG SC SCH (20:37)
[2018-07-22] MEDS: ACETAMINOPHEN 325 MG TAB PO PRN (21:03)
[2018-07-22] MEDS: LORAZEPAM 1 MG TAB PO PRN (23:17)
[2018-07-23] VITALS (21 sets, daily range): BP systolic 117–151; BP diastolic 58–87; PULSE 75–88; RESP 15–27
[2018-07-23] MEDS: ACETYLCYSTEINE 20% 4 ML VIAL NEB SCH ×6 (01:30→19:48)
[2018-07-23] MEDS: ALBUTEROL 0.083% (NEB) 2.5 MG/3 ML AMP NEB PRN ×2 (01:30→05:25)
[2018-07-23] MEDS: PIPER-TAZO 3.375 GM IV (PMX) 100 ML IVPB SCH ×3 (06:20→21:49)
[2018-07-23] MEDS: CHLORHEXIDINE GLUCONATE 15 ML UD CUP MM SCH ×2 (06:20→17:53)
[2018-07-23] MEDS: PANTOPRAZOLE (EC) 40 MG TAB PO SCH (06:20)
[2018-07-23] MEDS: SUCRALFATE 1 GM TAB PO SCH ×4 (06:20→20:51)
[2018-07-23] MEDS: INSULIN ASPART [NOVOLOG] 3 ML PEN SC SCH ×7 (08:04→21:10)
[2018-07-23] MEDS: POLYETHYLENE GLYCOL 17 GM PACKET PO SCH (08:48)
[2018-07-23] MEDS: ASCORBIC ACID 500 MG TAB PO SCH (08:48)
[2018-07-23] MEDS: ALBUTEROL/IPRATROPIUM (NEB) 3 ML AMP HHN SCH ×4 (09:51→19:48)
--- NOTE | 2018-07-23 11:19 | CONS ---
Assessment/Plan Assessment/Plan Assessment/Plan (Daily) Ventilator setting; AC of 14, tidal volume 450, PEEP of 5, 40% FiO2. Assessment and recommendations; 1. Patient with history of VDR F admitted for right lung atelectasis status post bronchoscopy with persistent atelectasis of the right lung. 2. Pleural effusions. 3. Likely underlying pneumonia as well. 4. History of diabetes. 5. History of cardiac arrhythmia. Continue aggressive chest PT as well as suctioning. Obtain follow-up chest x- ray 24 hours. The patient likely will need to have a repeat bronchoscopy performed tomorrow. Consultation Date/Type/Reason Admit Date/Time Jul 18, 2018 at 16:47 Initial Consult Date 07/19/18 Type of Consult Pulmonary patient is a 68-year-old male who Lives in detention was sent over to the hospital because of hypoxemia. Upon evaluation chest x-ray was done which is showing extensive pneumonia involving right lung which was subsequently confirmed by CT of the chest. Patient also has bilateral pleural effusions. Patient is on chronic ventilator and by the time I saw him appears very comfortable and denied having any chest pain, shortness of breath, coughing, hemoptysis. Past medical history; next 1. VDR F. Etiology for that is unclear. 2. History of CHF, anemia, chronic renal insufficiency, diabetes and atrial fibrillation. Medications; reviewed. Allergies; none. Social history; patient is an ex-smoker. Family history; noncontributory. Occupational history; noncontributory. Review of systems; denies any headache, visual changes. Any chest pain, denies any coughing, hemoptysis. Any abdominal pain, nausea vomiting. General exam; elderly male, awake and alert. Currently in no distress. On ventilator via tracheostomy. Date/Time of Note DATE: 07/23/18 TIME: 11:17 24 HR Interval Summary Free Text/Dictation Patient's condition is stable. Remains awake and alert. Has remained hemodynamically stable. General exam; elderly male, on ventilator via tracheostomy, currently in no distress. Exam/Review of Systems Exam Vitals Vital Signs Date Temp Pulse Resp B/P (MAP) Pulse Ox O2 O2 Flow FiO2 Time Delivery Rate 07/23/18 85 17 100 40 10:10 07/23/18 98.0 127/61 Room Air 07:44 (83) Intake and Output 407/22/18 07/23/18 1515:00 23:00 07:00 IntakeIntake Total 1650 ml 500 ml OutputOutput Total 1050 ml 800 ml BalanceBalance 600 ml -300 ml Exam HEENT exam; supple neck, no JVD. No lymphadenopathy. Midline trachea. No thyromegaly. Tracheostomy in place. Patient is edentulous. Chest exam; diminished breath sounds right lung. Left lung is clear. S1-S2 audible, no murmurs. Regular rhythm. Abdomen exam; soft, nontender. Bowel sounds audible. No organomegaly. Extremity exam; no peripheral edema. CRAPS DEALER exam; no focal deficit. Results Result Diagram: 07/23/18 0539 07/23/18 0539 Results 24hrs Laboratory Tests Test 07/22/18 11:56 07/22/18 17:10 07/22/18 20:20 07/22/18 22:00 Bedside Glucose 228 H 296 H 296 H Stool Occult Blood NEGATIVE Test 07/23/18 02:53 07/23/18 05:39 07/23/18 07:59 Bedside Glucose 290 H 190 White Blood Count 19.1 H Red Blood Count 3.11 L Hemoglobin 7.4 L Hematocrit 24.7 L Mean Corpuscular Volume 79.4 L Mean Corpuscular 23.8 L Hemoglobin Mean Corpuscular 30.0 L Hemoglobin Concent Red Cell Distribution 14.6 H Width Platelet Count 276 Mean Platelet Volume 9.7 Immature Granulocytes % 1.300 H Neutrophils % 80.1 H Lymphocytes % 7.7 L Monocytes % 8.6 Eosinophils % 2.0 Basophils % 0.3 Nucleated Red Blood 0.0 Cells % Immature Granulocytes # 0.240 H Neutrophils # 15.3 H Lymphocytes # 1.5 Monocytes # 1.6 H Eosinophils # 0.4 Basophils # 0.1 Nucleated Red Blood 0.0 Cells # Sodium Level 136 Potassium Level 4.6 Chloride Level 108 Carbon Dioxide Level 22 Anion Gap 6 Blood Urea Nitrogen 40 H Creatinine 2.25 H Est Glomerular Filtrat 29 L Rate mL/min Glucose Level 178 Calcium Level 8.6 Medications Medication Current Medications Acetaminophen (Tylenol Tab) 650 mg Q4H PRN PO MILD PAIN LEVEL 1-3 Last administered on 07/22/18at 21:03; Admin Dose 650 MG; Start 07/18/18 at 18:00 Albuterol (Proventil 0.083% (Neb)) 2.5 mg Q4H PRN NEB TRACHEOSTOMY Last administered on 07/23/18 05:25; Admin Dose 2.5 MG; Start 07/18/18 at 18:00 Ascorbic Acid (Vitamin C) 500 mg DAILY PO Last administered on 07/23/18 08:48; Admin Dose 500 MG; Start 07/19/18 at 09:00 Chlorhexidine Gluconate (Peridex) 15 ml Q12H MM Last administered on 07/23/18 06:20; Admin Dose 15 ML; Start 07/18/18 at 18:00 Digoxin (Digoxin) 0.25 mg DAILY@1300 PO Last administered on 07/22/18 14:58; Admin Dose 0.25 MG; Start 07/19/18 at 13:00 Lorazepam (Ativan) 1 mg Q6 PRN PO ANXIETY Last administered on 07/22/18 23:17; Admin Dose 1 MG; Start 07/18/18 at 18:00 Pantoprazole (Protonix Tab) 40 mg AC BREAKFAST PO Last administered on 06:20; Admin Dose 40 MG; Start 07/19/18 at 07:00 Polyethylene Glycol (Miralax) 17 gm DAILY PO Last administered on 07/23/18 08:48; Admin Dose 17 GM; Start 07/19/18 at 09:00 Rivaroxaban (Xarelto) 15 mg WITH DINNER PO Last administered on 07/18/18 20:02; Admin Dose 15 MG; Start 07/18/18 at 18:00; Status Hold Sucralfate (Carafate) 1 gm AC MEALS AND BEDTIME PO Last administered on 07/23/18 06:20; Admin Dose 1 GM; Start 07/18/18 at 21:00 Piperacillin Sod/ Tazobactam Sod 100 ml @ 200 mls/hr Q8 IVPB Last administered on 07/23/18 06:20; Admin Dose 200 MLS/HR; Start 07/18/18 at 22:00 Insulin Aspart (Novolog Insulin Pen) NOVOLOG *MILD* ALGORITHM WITH MEALS BEDTIME SC Last administered on 07/23/18 08:05; Admin Dose 2 UNIT; Start 07/19/18 at 07:55 Miscellaneous Information 1 ea NOTE XX ; Start 07/19/18 at 04:00 Glucose (Glutose) 15 gm Q15M PRN PO DECREASED GLUCOSE; Start 07/19/18 at 04:00 Glucose (Glutose) 22.5 gm Q15M PRN PO DECREASED GLUCOSE; Start 07/19/18 at 04:00 Dextrose (D50w Syringe) 25 ml Q15M PRN IV DECREASED GLUCOSE; Start 07/19/18 at 04:00 Dextrose (D50w Syringe) 50 ml Q15M PRN IV DECREASED GLUCOSE; Start 07/19/18 at 04:00 Glucagon (Glucagen) 1 mg Q15M PRN IM DECREASED GLUCOSE; Start 07/19/18 at 04:00 Glucose (Glutose) 15 gm Q15M PRN BUCCAL DECREASED GLUCOSE; Start 07/19/18 at 04:00 Vancomycin HCl (Vanco Iv Per Pharmacy) VANCOMYCIN PER PHARMACY PER PROTOCOL XX ; Start 07/20/18 at 14:00 Insulin Glargine (Lantus) 19 units DAILY@2000 SC Last administered on 07/22/18 20:37; Admin Dose 19 UNITS; Start 07/21/18 at 20:00 Insulin Aspart (Novolog Insulin Pen) 6 unit WITH MEALS SC Last administered on 07/23/18 08:04; Admin Dose 6 UNIT; Start 07/21/18 at 17:55 Albuterol/ Ipratropium (Duoneb) 3 ml Q4HWA RESP THERAPY HHN Last administered on 07/23/18 09:51; Admin Dose 3 ML; Start 07/21/18 at 17:00 Acetylcysteine (Mucomyst) 2 ml Q4H RESP THERAPY NEB Last administered on 07/23/18 09:51; Admin Dose 2 ML; Start 07/21/18 at 17:00 Vancomycin HCl 250 ml @ 125 mls/hr Q36H IVPB Last administered on 07/22/18 12:09; Admin Dose 125 MLS/HR; Start 07/22/18 at 12:00 WARREN HOLLIS Jul 23, 2018 11:19
[2018-07-23] MEDS: DIGOXIN 0.25 MG TAB PO SCH (13:15)
--- NOTE | 2018-07-23 17:49 | PN ---
Date/Time of Note Date/Time of Note DATE: 07/23/18 TIME: 17:45 Assessment/Plan VTE Prophylaxis Risk score (from Ns)>0 risk: 8 SCD applied (from Ns): Yes Pharmacological prophylaxis: NA/contraindicated Pharm contraindication: low risk/ambulating, surgical contra Lines/Catheters IV C[facility] Type [facility]from [facility]): Peripheral IV Urinary Cath still in place: No Assessment/Plan Hospital Course 68 yo male with chronic respiratory failure with trach normally to room air, A Fib, DMII who presents with hypoxia with XR showing R lung collapse Lung collapse leading to hypoxia: - s/p bronchoscopy 07/20 with mucous impaction discovered. XR continues to show R lung collapse however. Repeat bronchoscopy tomorrow, management per pulmonary - Thoracentesis attempted but inadequate fluid - Continue abx x 7 day course - Continue mechanical ventilation for now. Normally is on trach collar apparently DMII - Basal/bolus insulin A Fib: - Hold Xarelto for procedures Diastolic CHF: - Compensated Anemia of unclear etiology: - Choreic inflammation demonstrated by iron stores CKD III: - Stable, trend creatinine Dc when stable to NH Result Diagram: 07/23/18 0539 07/23/18 0539 Results 24hrs Laboratory Tests Test 07/22/18 20:20 07/22/18 22:00 07/23/18 02:53 07/23/18 05:39 Bedside Glucose 296 H 290 H Stool Occult Blood NEGATIVE White Blood Count 19.1 H Red Blood Count 3.11 L Hemoglobin 7.4 L Hematocrit 24.7 L Mean Corpuscular Volume 79.4 L Mean Corpuscular 23.8 L Hemoglobin Mean Corpuscular 30.0 L Hemoglobin Concent Red Cell Distribution 14.6 H Width Platelet Count 276 Mean Platelet Volume 9.7 Immature Granulocytes % 1.300 H Neutrophils % 80.1 H Lymphocytes % 7.7 L Monocytes % 8.6 Eosinophils % 2.0 Basophils % 0.3 Nucleated Red Blood 0.0 Cells % Immature Granulocytes # 0.240 H Neutrophils # 15.3 H Lymphocytes # 1.5 Monocytes # 1.6 H Eosinophils # 0.4 Basophils # 0.1 Nucleated Red Blood 0.0 Cells # Sodium Level 136 Potassium Level 4.6 Chloride Level 108 Carbon Dioxide Level 22 Anion Gap 6 Blood Urea Nitrogen 40 H Creatinine 2.25 H Est Glomerular Filtrat 29 L Rate mL/min Glucose Level 178 Calcium Level 8.6 Test 4/8/19 07:59 07/23/18 11:56 07/23/18 17:26 Bedside Glucose 190 263 H 295 H Subjective 24 Hr Interval Summary Subjective hx not possible: pt non-verbal Exam/Review of Systems Exam Vitals Vital Signs Date Temp Pulse Resp B/P (MAP) Pulse Ox O2 O2 Flow FiO2 Time Delivery Rate 07/23/18 84 25 98 40 17:28 07/23/18 98.0 135/78 Room Air 15:19 (97) 07/23/18 2.0 14:36 Intake and Output 07/22/18 07/22/18 07/23/18 1515:00 23:00 07:00 IntakeIntake Total 1650 ml 500 ml OutputOutput Total 1050 ml 800 ml BalanceBalance 600 ml -300 ml Constitutional: non-verbal Respiratory: clear to auscultation Cardiovascular: regular rate and rhythm Gastrointestinal: soft; No distended Musculoskeletal: nl extremities to inspection Results Results 24hrs Laboratory Tests Test 07/22/18 20:20 07/22/18 22:00 07/23/18 02:53 07/23/18 05:39 Bedside Glucose 296 H 290 H Stool Occult Blood NEGATIVE White Blood Count 19.1 H Red Blood Count 3.11 L Hemoglobin 7.4 L Hematocrit 24.7 L Mean Corpuscular Volume 79.4 L Mean Corpuscular 23.8 L Hemoglobin Mean Corpuscular 30.0 L Hemoglobin Concent Red Cell Distribution 14.6 H Width Platelet Count 276 Mean Platelet Volume 9.7 Immature Granulocytes % 1.300 H Neutrophils % 80.1 H Lymphocytes % 7.7 L Monocytes % 8.6 Eosinophils % 2.0 Basophils % 0.3 Nucleated Red Blood 0.0 Cells % Immature Granulocytes # 0.240 H Neutrophils # 15.3 H Lymphocytes # 1.5 Monocytes # 1.6 H Eosinophils # 0.4 Basophils # 0.1 Nucleated Red Blood 0.0 Cells # Sodium Level 136 Potassium Level 4.6 Chloride Level 108 Carbon Dioxide Level 22 Anion Gap 6 Blood Urea Nitrogen 40 H Creatinine 2.25 H Est Glomerular Filtrat 29 L Rate mL/min Glucose Level 178 Calcium Level 8.6 Test 07/23/18 07:59 07/23/18 11:56 07/23/18 17:26 Bedside Glucose 190 263 H 295 H Medications Medication Current Medications Acetaminophen (Tylenol Tab) 650 mg Q4H PRN PO MILD PAIN LEVEL 1-3 Last administered on 07/22/18 21:03; Admin Dose 650 MG; Start 07/18/18 at 18:00 Albuterol (Proventil 0.083% (Neb)) 2.5 mg Q4H PRN NEB TRACHEOSTOMY Last administered on 07/23/18 05:25; Admin Dose 2.5 MG; Start 07/18/18 at 18:00 Ascorbic Acid (Vitamin C) 500 mg DAILY PO Last administered on 07/23/18 08:48; Admin Dose 500 MG; Start 07/19/18 at 09:00 Chlorhexidine Gluconate (Peridex) 15 ml Q12H MM Last administered on 07/23/18 06:20; Admin Dose 15 ML; Start 07/18/18 at 18:00 Digoxin (Digoxin) 0.25 mg DAILY@1300 PO Last administered on 07/23/18 13:15; Admin Dose 0.25 MG; Start 07/19/18 at 13:00 Lorazepam (Ativan) 1 mg Q6 PRN PO ANXIETY Last administered on 07/22/18 23:17; Admin Dose 1 MG; Start 07/18/18 at 18:00 Pantoprazole (Protonix Tab) 40 mg AC BREAKFAST PO Last administered on 07/23/18 06:20; Admin Dose 40 MG; Start 07/19/18 at 07:00 Polyethylene Glycol (Miralax) 17 gm DAILY PO Last administered on 07/23/18 08:48; Admin Dose 17 GM; Start 07/19/18 at 09:00 Rivaroxaban (Xarelto) 15 mg WITH DINNER PO Last administered on 07/18/18 20:02; Admin Dose 15 MG; Start 07/18/18 at 18:00; Status Hold Sucralfate (Carafate) 1 gm AC MEALS AND BEDTIME PO Last administered on 07/23/18 11:28; Admin Dose 1 GM; Start 07/18/18 at 21:00 Piperacillin Sod/ Tazobactam Sod 100 ml @ 200 mls/hr Q8 IVPB Last administered on 07/23/18 13:15; Admin Dose 200 MLS/HR; Start 07/18/18 at 22:00 Insulin Aspart (Novolog Insulin Pen) NOVOLOG *MILD* ALGORITHM WITH MEALS BEDTIME SC Last administered on 07/23/18 12:15; Admin Dose 4 UNIT; Start 07/19/18 at 07:55 Miscellaneous Information 1 ea NOTE XX ; Start 07/19/18 at 04:00 Glucose (Glutose) 15 gm Q15M PRN PO DECREASED GLUCOSE; Start 07/19/18 at 04:00 Glucose (Glutose) 22.5 gm Q15M PRN PO DECREASED GLUCOSE; Start 07/19/18 at 04:00 Dextrose (D50w Syringe) 25 ml Q15M PRN IV DECREASED GLUCOSE; Start 07/19/18 at 04:00 Dextrose (D50w Syringe) 50 ml Q15M PRN IV DECREASED GLUCOSE; Start 07/19/18 at 04:00 Glucagon (Glucagen) 1 mg Q15M PRN IM DECREASED GLUCOSE; Start 07/19/18 at 04:00 Glucose (Glutose) 15 gm Q15M PRN BUCCAL DECREASED GLUCOSE; Start 07/19/18 at 04:00 Vancomycin HCl (Vanco Iv Per Pharmacy) VANCOMYCIN PER PHARMACY PER PROTOCOL XX ; Start 07/20/18 at 14:00 Insulin Glargine (Lantus) 19 units DAILY@2000 SC Last administered on 07/22/18at 20:37; Admin Dose 19 UNITS; Start 07/21/18 at 20:00 Insulin Aspart (Novolog Insulin Pen) 6 unit WITH MEALS SC Last administered on 07/23/18 12:15; Admin Dose 6 UNIT; Start 07/21/18 at 17:55 Albuterol/ Ipratropium (Duoneb) 3 ml Q4HWA RESP THERAPY HHN Last administered on 07/23/18 17:10; Admin Dose 3 ML; Start 07/21/18 at 17:00 Acetylcysteine (Mucomyst) 2 ml Q4H RESP THERAPY NEB Last administered on 07/23/18 17:11; Admin Dose 2 ML; Start 07/21/18 at 17:00 Vancomycin HCl 250 ml @ 125 mls/hr Q36H IVPB Last administered on 07/22/18 12:09; Admin Dose 125 MLS/HR; Start 07/22/18 at 12:00 IRINA LEACH Jul 23, 2018 17:48
[2018-07-23] MEDS: INSULIN GLARGINE [LANTus] (100 UNITS/ML) SYG SC SCH (21:11)
[2018-07-24] VITALS (20 sets, daily range): BP systolic 124–164; BP diastolic 57–72; PULSE 73–101; RESP 16–25
[2018-07-24] MEDS: ACETYLCYSTEINE 20% 4 ML VIAL NEB SCH ×6 (01:03→20:00)
[2018-07-24] MEDS: VANCOMYCIN 1 GM 250 ML IVPB SCH (02:01)
[2018-07-24] MEDS: PIPER-TAZO 3.375 GM IV (PMX) 100 ML IVPB SCH ×3 (06:00→22:50)
[2018-07-24] MEDS: CHLORHEXIDINE GLUCONATE 15 ML UD CUP MM SCH ×2 (06:00→18:21)
[2018-07-24] MEDS: PANTOPRAZOLE (EC) 40 MG TAB PO SCH (07:49)
[2018-07-24] MEDS: SUCRALFATE 1 GM TAB PO SCH ×4 (07:49→22:40)
[2018-07-24] MEDS: INSULIN ASPART [NOVOLOG] 3 ML PEN SC SCH ×7 (08:05→22:47)
[2018-07-24] MEDS: ALBUTEROL/IPRATROPIUM (NEB) 3 ML AMP HHN SCH ×4 (08:56→20:00)
[2018-07-24] MEDS: POLYETHYLENE GLYCOL 17 GM PACKET PO SCH (09:23)
[2018-07-24] MEDS: ASCORBIC ACID 500 MG TAB PO SCH (09:23)
--- NOTE | 2018-07-24 10:43 | CONS ---
Assessment/Plan Assessment/Plan Assessment/Plan (Daily) Ventilator setting; AC of 14, tidal volume 450, PEEP of 5, 40% FiO2. Assessment and recommendations; 1. Patient with history of VDR F admitted for pneumonia involving right lung with bilateral pleural effusions, status post bronchoscopy with removal of right mainstem mucus. However chest x-rays are showing persistent atelectasis as well as extensive infiltrative changes on the right side. Continue current supportive care. Order ultrasound-guided thoracentesis on the right side. Further recommendations once chest x-ray is obtained from today. Patient likely will need to have a repeat bronchoscopy if the x-ray is showing persistent atelectasis. Consultation Date/Type/Reason Admit Date/Time Jul 18, 2018 at 16:47 Initial Consult Date 07/19/18 Type of Consult Pulmonary patient is a 68-year-old male who Lives in [facility] was sent over to the hospital because of hypoxemia. Upon evaluation chest x-ray was done which is showing extensive pneumonia involving right lung which was subsequently confirmed by CT of the chest. Patient also has bilateral pleural effusions. Patient is on chronic ventilator and by the time I saw him appears very comfortable and denied having any chest pain, shortness of breath, coughing, hemoptysis. Past medical history; next 1. VDR F. Etiology for that is unclear. 2. History of CHF, anemia, chronic renal insufficiency, diabetes and atrial fibrillation. Medications; reviewed. Allergies; none. Social history; patient is an ex-smoker. Family history; noncontributory. Occupational history; noncontributory. Review of systems; denies any headache, visual changes. Any chest pain, denies any coughing, hemoptysis. Any abdominal pain, nausea vomiting. General exam; elderly male, awake and alert. Currently in no distress. On ventilator via tracheostomy. Date/Time of Note DATE: 07/24/18 TIME: 10:41 24 HR Interval Summary Free Text/Dictation Patient's condition remains stable overall. Denies any shortness of breath, coughing, chest pain. General exam; elderly male, on ventilator via tracheostomy, awake and alert. Currently in no distress. Exam/Review of Systems Exam Vitals Vital Signs Date Temp Pulse Resp B/P (MAP) Pulse Ox O2 O2 Flow FiO2 Time Delivery Rate 07/24/18 85 20 98 40 09:06 07/24/18 97.8 164/72 Mechanical 07:34 (102) Ventilator 07/23/18 2.0 14:36 Intake and Output 07/23/18 07/23/18 07/24/18 1515:00 23:00 07:00 IntakeIntake Total 100 ml BalanceBalance 100 ml Exam H EENT exam; supple neck, no JVD. No lymphadenopathy. Midline trachea. No thyromegaly. Patient is edentulous. Tracheostomy in place. Chest exam; diminished breath sounds right lung. Left lung is fairly clear. S1-S2 audible, no murmurs. Regular rhythm. Abdomen exam; soft, no organomegaly. Bowel sounds audible. Extremity exam; no peripheral edema. SPOOLER exam; no focal deficit. Results Result Diagram: 07/24/18 0647 07/24/18 0647 Results 24hrs Laboratory Tests Test 07/23/18 11:56 07/23/18 17:26 07/23/18 20:45 07/24/18 01:51 Bedside Glucose 263 H 295 H 354 H 269 H Test 07/24/18 06:47 07/24/18 07:46 White Blood Count 19.3 H Red Blood Count 2.95 L Hemoglobin 7.0 L Hematocrit 23.9 L Mean Corpuscular Volume 81.0 L Mean Corpuscular 23.7 L Hemoglobin Mean Corpuscular 29.3 L Hemoglobin Concent Red Cell Distribution 14.4 Width Platelet Count 280 Mean Platelet Volume 9.3 Immature Granulocytes % 1.800 H Neutrophils % 83.6 H Lymphocytes % 4.9 L Monocytes % 8.1 Eosinophils % 1.3 Basophils % 0.3 Nucleated Red Blood 0.0 Cells % Immature Granulocytes # 0.340 H Neutrophils # 16.1 H Lymphocytes # 1.0 Monocytes # 1.6 H Eosinophils # 0.3 Basophils # 0.1 Nucleated Red Blood 0.0 Cells # Sodium Level 137 Potassium Level 4.3 Chloride Level 110 Carbon Dioxide Level 22 Anion Gap 5 Blood Urea Nitrogen 34 H Creatinine 2.18 H Est Glomerular Filtrat 30 L Rate mL/min Glucose Level 213 Calcium Level 8.6 Bedside Glucose 228 H Medications Medication Current Medications Acetaminophen (Tylenol Tab) 650 mg Q4H PRN PO MILD PAIN LEVEL 1-3 Last adm inistered on 07/22/18at 21:03; Admin Dose 650 MG; Start 07/18/18 at 18:00 Albuterol (Proventil 0.083% (Neb)) 2.5 mg Q4H PRN NEB TRACHEOSTOMY Last administered on 07/23/18 05:25; Admin Dose 2.5 MG; Start 07/18/18 at 18:00 Ascorbic Acid (Vitamin C) 500 mg DAILY PO Last administered on 07/24/18 09:23; Admin Dose 500 MG; Start 07/19/18 at 09:00 Chlorhexidine Gluconate (Peridex) 15 ml Q12H MM Last administered on 07/23/18 17:53; Admin Dose 15 ML; Start 07/18/18 at 18:00 Digoxin (Digoxin) 0.25 mg DAILY@1300 PO Last administered on 07/23/18 13:15; Admin Dose 0.25 MG; Start 07/19/18 at 13:00 Lorazepam (Ativan) 1 mg Q6 PRN PO ANXIETY Last administered on 07/22/18 23:17; Admin Dose 1 MG; Start 07/18/18 at 18:00 Pantoprazole (Protonix Tab) 40 mg AC BREAKFAST PO Last administered on 07/24/18 07:49; Admin Dose 40 MG; Start 07/19/18 at 07:00 Polyethylene Glycol (Miralax) 17 gm DAILY PO Last administered on 07/24/18 09:23; Admin Dose 17 GM; Start 07/19/18 at 09:00 Rivaroxaban (Xarelto) 15 mg WITH DINNER PO Last administered on 07/18/18 20:02; Admin Dose 15 MG; Start 07/18/18 at 18:00; Status Hold Sucralfate (Carafate) 1 gm AC MEALS AND BEDTIME PO Last administered on 07/24/18 07:49; Admin Dose 1 GM; Start 07/18/18 at 21:00 Piperacillin Sod/ Tazobactam Sod 100 ml @ 200 mls/hr Q8 IVPB Last administered on 07/23/18 21:49; Admin Dose 200 MLS/HR; Start 07/18/18 at 22:00 Insulin Aspart (Novolog Insulin Pen) NOVOLOG *MILD* ALGORITHM WITH MEALS BEDTIME SC Last administered on 07/24/18 08:05; Admin Dose 3 UNIT; Start 07/19/18 at 07:55 Miscellaneous Information 1 ea NOTE XX ; Start 07/19/18 at 04:00 Glucose (Glutose) 15 gm Q15M PRN PO DECREASED GLUCOSE; Start 07/19/18 at 04:00 Glucose (Glutose) 22.5 gm Q15M PRN PO DECREASED GLUCOSE; Start 07/19/18 at 04:00 Dextrose (D50w Syringe) 25 ml Q15M PRN IV DECREASED GLUCOSE; Start 07/19/18 at 04:00 Dextrose (D50w Syringe) 50 ml Q15M PRN IV DECREASED GLUCOSE; Start 07/19/18 at 04:00 Glucagon (Glucagen) 1 mg Q15M PRN IM DECREASED GLUCOSE; Start 07/19/18 at 04:00 Glucose (Glutose) 15 gm Q15M PRN BUCCAL DECREASED GLUCOSE; Start 07/19/18 at 04:00 Vancomycin HCl (Vanco Iv Per Pharmacy) VANCOMYCIN PER PHARMACY PER PROTOCOL XX ; Start 07/20/18 at 14:00 Insulin Glargine (Lantus) 19 units DAILY@2000 SC Last administered on 07/23/18at 21:11; Admin Dose 19 UNITS; Start 07/21/18 at 20:00 Insulin Aspart (Novolog Insulin Pen) 6 unit WITH MEALS SC Last administered on 07/24/18 08:05; Admin Dose 6 UNIT; Start 07/21/18 at 17:55 Albuterol/ Ipratropium (Duoneb) 3 ml Q4HWA RESP THERAPY HHN Last administered on 07/24/18 08:56; Admin Dose 3 ML; Start 07/21/18 at 17:00 Acetylcysteine (Mucomyst) 2 ml Q4H RESP THERAPY NEB Last administered on 07/24/18 08:55; Admin Dose 2 ML; Start 07/21/18 at 17:00 Vancomycin HCl 250 ml @ 125 mls/hr Q36H IVPB Last administered on 07/24/18 02:01; Admin Dose 125 MLS/HR; Start 07/22/18 at 12:00 WARREN HOLLIS Jul 24, 2018 10:43
[2018-07-24] MEDS: DIGOXIN 0.25 MG TAB PO SCH (13:24)
--- NOTE | 2018-07-24 15:59 | PN ---
Date/Time of Note Date/Time of Note DATE: 07/24/18 TIME: 15:52 Assessment/Plan VTE Prophylaxis Risk score (from Ns)>0 risk: 8 SCD applied (from Ns): Yes Pharmacological prophylaxis: NA/contraindicated Pharm contraindication: surgical contra Lines/Catheters IV Catheter Type (from [facility]): Peripheral IV Urinary Cath still in place: No Assessment/Plan Hospital Course 68 yo male with chronic respiratory failure with trach normally to room air, A Fib, DMII who presents with hypoxia with XR showing R lung collapse Lung collapse leading to hypoxia: - s/p bronchoscopy 07/20 with mucous impaction discovered. XR continues to show R lung collapse however. Repeat bronchoscopy today, management per pulmonary - Thoracentesis attempted but inadequate fluid - Continue abx x 7 day course - Continue mechanical ventilation for now. Normally is on trach collar apparently DMII - Basal/bolus insulin A Fib: - Hold Xarelto for procedures Diastolic CHF: - Compensated Anemia of unclear etiology: - Choreic inflammation demonstrated by iron stores CKD III: - Stable, trend creatinine Dc when stable to NH Result Diagram: 07/24/18 0647 07/24/18 0647 Results 24hrs Laboratory Tests Test 07/23/18 17:26 07/23/18 20:45 07/24/18 01:51 07/24/18 06:47 Bedside Glucose 295 H 354 H 269 H White Blood Count 19.3 H Red Blood Count 2.95 L Hemoglobin 7.0 L Hematocrit 23.9 L Mean Corpuscular Volume 81.0 L Mean Corpuscular 23.7 L Hemoglobin Mean Corpuscular 29.3 L Hemoglobin Concent Red Cell Distribution 14.4 Width Platelet Count 280 Mean Platelet Volume 9.3 Immature Granulocytes % 1.800 H Neutrophils % 83.6 H Lymphocytes % 4.9 L Monocytes % 8.1 Eosinophils % 1.3 Basophils % 0.3 Nucleated Red Blood 0.0 Cells % Immature Granulocytes # 0.340 H Neutrophils # 16.1 H Lymphocytes # 1.0 Monocytes # 1.6 H Eosinophils # 0.3 Basophils # 0.1 Nucleated Red Blood 0.0 Cells # Sodium Level 137 Potassium Level 4.3 Chloride Level 110 Carbon Dioxide Level 22 Anion Gap 5 Blood Urea Nitrogen 34 H Creatinine 2.18 H Est Glomerular Filtrat 30 L Rate mL/min Glucose Level 213 Calcium Level 8.6 Test 07/24/18 07:46 07/24/18 11:49 Bedside Glucose 228 H 278 H Subjective 24 Hr Interval Summary Subjective hx not possible: pt non-verbal Exam/Review of Systems Exam Vitals Vital Signs Date Temp Pulse Resp B/P (MAP) Pulse Ox O2 O2 Flow FiO2 Time Delivery Rate 07/24/18 88 25 40 15:37 07/24/18 99 13:00 07/24/18 97.8 147/72 Nasal 11:38 (97) Cannula 07/23/18 2.0 14:36 Intake and Output 07/23/18 07/23/18 07/24/18 1515:00 23:00 07:00 IntakeIntake Total 100 ml BalanceBalance 100 ml Constitutional: non-verbal Respiratory: clear to auscultation Cardiovascular: regular rate and rhythm Gastrointestinal: soft; No distended Musculoskeletal: nl extremities to inspection Results Results 24hrs Laboratory Tests Test 07/23/18 17:26 07/23/18 20:45 07/24/18 01:51 07/24/18 06:47 Bedside Glucose 295 H 354 H 269 H White Blood Count 19.3 H Red Blood Count 2.95 L Hemoglobin 7.0 L Hematocrit 23.9 L Mean Corpuscular Volume 81.0 L Mean Corpuscular 23.7 L Hemoglobin Mean Corpuscular 29.3 L Hemoglobin Concent Red Cell Distribution 14.4 Width Platelet Count 280 Mean Platelet Volume 9.3 Immature Granulocytes % 1.800 H Neutrophils % 83.6 H Lymphocytes % 4.9 L Monocytes % 8.1 Eosinophils % 1.3 Basophils % 0.3 Nucleated Red Blood 0.0 Cells % Immature Granulocytes # 0.340 H Neutrophils # 16.1 H Lymphocytes # 1.0 Monocytes # 1.6 H Eosinophils # 0.3 Basophils # 0.1 Nucleated Red Blood 0.0 Cells # Sodium Level 137 Potassium Level 4.3 Chloride Level 110 Carbon Dioxide Level 22 Anion Gap 5 Blood Urea Nitrogen 34 H Creatinine 2.18 H Est Glomerular Filtrat 30 L Rate mL/min Glucose Level 213 Calcium Level 8.6 Test 07/24/18 07:46 07/24/18 11:49 Bedside Glucose 228 H 278 H Medications Medication Current Medications Acetaminophen (Tylenol Tab) 650 mg Q4H PRN PO MILD PAIN LEVEL 1-3 Last administ ered on 07/22/18at 21:03; Admin Dose 650 MG; Start 07/18/18 at 18:00 Albuterol (Proventil 0.083% (Neb)) 2.5 mg Q4H PRN NEB TRACHEOSTOMY Last administered on 07/23/18 05:25; Admin Dose 2.5 MG; Start 07/18/18 at 18:00 Ascorbic Acid (Vitamin C) 500 mg DAILY PO Last administered on 07/24/18 09:23; Admin Dose 500 MG; Start 07/19/18 at 09:00 Chlorhexidine Gluconate (Peridex) 15 ml Q12H MM Last administered on 07/23/18 17:53; Admin Dose 15 ML; Start 07/18/18 at 18:00 Digoxin (Digoxin) 0.25 mg DAILY@1300 PO Last administered on 07/24/18 13:24; Admin Dose 0.25 MG; Start 07/19/18 at 13:00 Lorazepam (Ativan) 1 mg Q6 PRN PO ANXIETY Last administered on 07/22/18 23:17; Admin Dose 1 MG; Start 07/18/18 at 18:00 Pantoprazole (Protonix Tab) 40 mg AC BREAKFAST PO Last administered on 07/24/18 07:49; Admin Dose 40 MG; Start 07/19/18 at 07:00 Polyethylene Glycol (Miralax) 17 gm DAILY PO Last administered on 07/24/18 09:23; Admin Dose 17 GM; Start 07/19/18 at 09:00 Rivaroxaban (Xarelto) 15 mg WITH DINNER PO Last administered on 07/18/18 20:02; Admin Dose 15 MG; Start 07/18/18 at 18:00; Status Hold Sucralfate (Carafate) 1 gm AC MEALS AND BEDTIME PO Last administered on 07/24/18 11:52; Admin Dose 1 GM; Start 07/18/18 at 21:00 Piperacillin Sod/ Tazobactam Sod 100 ml @ 200 mls/hr Q8 IVPB Last administered on 07/24/18 13:26; Admin Dose 200 MLS/HR; Start 07/18/18 at 22:00 Insulin Aspart (Novolog Insulin Pen) NOVOLOG *MILD* ALGORITHM WITH MEALS BEDTIME SC Last administered on 07/24/18 12:12; Admin Dose 4 UNIT; Start 07/19/18 at 07:55 Miscellaneous Information 1 ea NOTE XX ; Start 07/19/18 at 04:00 Glucose (Glutose) 15 gm Q15M PRN PO DECREASED GLUCOSE; Start 07/19/18 at 04:00 Glucose (Glutose) 22.5 gm Q15M PRN PO DECREASED GLUCOSE; Start 07/19/18 at 04:00 Dextrose (D50w Syringe) 25 ml Q15M PRN IV DECREASED GLUCOSE; Start 07/19/18 at 04:00 Dextrose (D50w Syringe) 50 ml Q15M PRN IV DECREASED GLUCOSE; Start 07/19/18 at 04:00 Glucagon (Glucagen) 1 mg Q15M PRN IM DECREASED GLUCOSE; Start 07/19/18 at 04:00 Glucose (Glutose) 15 gm Q15M PRN BUCCAL DECREASED GLUCOSE; Start 07/19/18 at 04:00 Vancomycin HCl (Vanco Iv Per Pharmacy) VANCOMYCIN PER PHARMACY PER PROTOCOL XX ; Start 07/20/18 at 14:00 Insulin Glargine (Lantus) 19 units DAILY@2000 SC Last administered on 07/23/18at 21:11; Admin Dose 19 UNITS; Start 07/21/18 at 20:00 Insulin Aspart (Novolog Insulin Pen) 6 unit WITH MEALS SC Last administered on 07/24/18at 12:11; Admin Dose 6 UNIT; Start 07/21/18 at 17:55 Albuterol/ Ipratropium (Duoneb) 3 ml Q4HWA RESP THERAPY HHN Last administered on 07/24/18 08:56; Admin Dose 3 ML; Start 07/21/18 at 17:00 Acetylcysteine (Mucomyst) 2 ml Q4H RESP THERAPY NEB Last administered on 07/24/18at 08:55; Admin Dose 2 ML; Start 07/21/18 at 17:00 Vancomycin HCl 250 ml @ 125 mls/hr Q36H IVPB Last administered on 07/24/18at 02:01; Admin Dose 125 MLS/HR; Start 07/22/18 at 12:00 Miscellaneous Information (*Rx Drug Level Order Reminder*) VANCO TROUGH @ 1,100 ON... 1000 ONCE XX ; Start 07/25/18 at 10:00; Stop 07/25/18 at 10:01 IRINA LEACH Jul 24, 2018 15:59
[2018-07-24] MEDS: INSULIN GLARGINE [LANTus] (100 UNITS/ML) SYG SC SCH (22:48)
[2018-07-25] VITALS (28 sets, daily range): BP systolic 121–185; BP diastolic 56–89; PULSE 69–105; RESP 14–26
[2018-07-25] MEDS: ALBUTEROL 0.083% (NEB) 2.5 MG/3 ML AMP NEB PRN ×2 (01:52→05:20)
[2018-07-25] MEDS: ACETYLCYSTEINE 20% 4 ML VIAL NEB SCH ×6 (01:52→20:13)
[2018-07-25] MEDS: CHLORHEXIDINE GLUCONATE 15 ML UD CUP MM SCH ×2 (06:12→18:24)
[2018-07-25] MEDS: PIPER-TAZO 3.375 GM IV (PMX) 100 ML IVPB SCH ×3 (06:12→20:08)
[2018-07-25] MEDS: SUCRALFATE 1 GM TAB PO SCH ×4 (07:25→20:08)
[2018-07-25] MEDS: PANTOPRAZOLE (EC) 40 MG TAB PO SCH (07:25)
[2018-07-25] MEDS: INSULIN ASPART [NOVOLOG] 3 ML PEN SC SCH ×7 (07:36→20:08)
[2018-07-25] MEDS: ALBUTEROL/IPRATROPIUM (NEB) 3 ML AMP HHN SCH ×4 (08:18→20:12)
[2018-07-25] MEDS: ASCORBIC ACID 500 MG TAB PO SCH (09:00)
[2018-07-25] MEDS: POLYETHYLENE GLYCOL 17 GM PACKET PO SCH (09:00)
--- NOTE | 2018-07-25 10:26 | CONS ---
Assessment/Plan Assessment/Plan Assessment/Plan (Daily) Chest x-ray from today showing slight improvement in right lung aeration. Patient underwent right thoracentesis yesterday only 5 mL of fluid could be drained. Ventilator setting; noted. Assessment and recommendations; 1. Patient admitted with severe right-sided pneumonia with history of VDR F. S tatus post bronchoscopy with apparent recurrent right mainstem mucous plugging. Continue current supportive care. Patient scheduled for repeat bronchoscopy shortly. Consultation Date/Type/Reason Admit Date/Time Jul 18, 2018 at 16:47 Initial Consult Date 07/19/18 Type of Consult Pulmonary patient is a 68-year-old male who [facility] was sent over to the hospital because of hypoxemia. Upon evaluation chest x-ray was done which is showing extensive pneumonia involving right lung which was subsequently confirmed by CT of the chest. Patient also has bilateral pleural effusions. Patient is on chronic ventilator and by the time I saw him appears very comfortable and denied having any chest pain, shortness of breath, coughing, hemoptysis. Past medical history; next 1. VDR F. Etiology for that is unclear. 2. History of CHF, anemia, chronic renal insufficiency, diabetes and atrial fibrillation. Medications; reviewed. Allergies; none. Social history; patient is an ex-smoker. Family history; noncontributory. Occupational history; noncontributory. Review of systems; denies any headache, visual changes. Any chest pain, denies any coughing, hemoptysis. Any abdominal pain, nausea vomiting. General exam; elderly male, awake and alert. Currently in no distress. On ventilator via tracheostomy. Date/Time of Note DATE: 07/25/18 TIME: 10:24 24 HR Interval Summary Free Text/Dictation Patient's condition is stable. Has remained hemodynamically stable. General exam; elderly male, on ventilator via tracheostomy, currently no distress. Exam/Review of Systems Exam Vitals Vital Signs Date Temp Pulse Resp B/P (MAP) Pulse Ox O2 O2 Flow FiO2 Time Delivery Rate 07/25/18 70 14 99 40 09:04 07/25/18 98.7 137/56 Mechanical 07:28 (83) Ventilator 07/23/18 2.0 14:36 Intake and Output 07/24/18 07/24/18 07/25/18 1515:00 23:00 07:00 IntakeIntake Total 860 ml OutputOutput Total 1200 ml BalanceBalance -340 ml Exam HEENT exam; supple neck, no JVD. No lymphadenopathy. Midline trachea. No thyromegaly. Patient is edentulous. Tracheostomy in place. Chest exam; diminished breath sounds right lung. Left lung is fairly clear. S1-S2 audible, no murmurs. Regular rhythm. Abdomen exam; soft, no organomegaly. Bowel sounds audible. Extremity exam; peripheral edema clubbing. 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 Results Result Diagram: 07/24/18 0647 07/24/18 0647 Results 24hrs Laboratory Tests Test 07/24/18 11:49 07/24/18 15:10 07/24/18 17:21 07/24/18 21:17 Bedside Glucose 278 H 178 182 Body Fluid Type THORACENTESIS FL UID Body Fluid 3.6 Volume Body Fluid Color YELLOW Body Fluid CLOUDY Appearance Body Fluid WBC 20732 Body Fluid RBC 40484 (Auto) Body Fluid 77.4 Polynuclear WBCs (%) Body Fluid 22.6 Mononuclear Cells % Auto Body Fluid Total 3.1 Protein Body Fluid 86589 Lactate Dehydrog enase Test 07/25/18 02:10 07/25/18 07:35 07/25/18 07:55 Bedside Glucose 133 97 Blood Gas Blood arterial Specimen Source Arterial Blood 07/25/2018 8:10: Date Drawn 27 AM Arterial Blood 7.387 pH (Temp corrected) Arterial Blood 41.0 pCO2 (Temp correct) Arterial Blood 84.4 pO2 (Temp corrected) Arterial Blood 24.1 HCO3 Arterial Blood -0.8 Base Excess Arterial Blood 96.6 Oxygen Saturatio n Mikey Test ACCEPTAB Arterial Blood Right Radial Gas Puncture Site Arterial 0.2 Blood Carboxyhem oglobin Arterial Blood 0.3 Methemoglobin Blood Gas A-a O2 153.7 H Differential Oxyhemoglobin 96.1 Percent Blood Gas 37.0 Temperature Blood Gas 14.0 Respiration Rate Blood Gas Actual 16 Respiration Rate Blood Gas VENT - AC Modality FiO2 40.0 Blood Gas Tidal 550.0 Volume Blood Gas Low 5.0 PEEP Setting Blood Gas TM Notified Whom Blood Gas 07/25/2018 8:19: Notified Time 02 AM Medications Medication Current Medications Acetaminophen (Tylenol Tab) 650 mg Q4H PRN PO MILD PAIN LEVEL 1-3 Last administered on 07/22/18at 21:03; Admin Dose 650 MG; Start 07/18/18 at 18:00 Albuterol (Proventil 0.083% (Neb)) 2.5 mg Q4H PRN NEB TRACHEOSTOMY Last administered on 07/25/18 05:20; Admin Dose 2.5 MG; Start 07/18/18 at 18:00 Ascorbic Acid (Vitamin C) 500 mg DAILY PO Last administered on 07/24/18 09:23; Admin Dose 500 MG; Start 07/19/18 at 09:00 Chlorhexidine Gluconate (Peridex) 15 ml Q12H MM Last administered on 07/25/18 06:12; Admin Dose 15 ML; Start 07/18/18 at 18:00 Digoxin (Digoxin) 0.25 mg DAILY@1300 PO Last administered on 07/24/18 13:24; Admin Dose 0.25 MG; Start 07/19/18 at 13:00 Lorazepam (Ativan) 1 mg Q6 PRN PO ANXIETY Last administered on 07/22/18 23:17; Admin Dose 1 MG; Start 07/18/18 at 18:00 Pantoprazole (Protonix Tab) 40 mg AC BREAKFAST PO Last administered on 07/24/18 07:49; Admin Dose 40 MG; Start 07/19/18 at 07:00 Polyethylene Glycol (Miralax) 17 gm DAILY PO Last administered on 07/24/18 09:23; Admin Dose 17 GM; Start 07/19/18 at 09:00 Rivaroxaban (Xarelto) 15 mg WITH DINNER PO Last administered on 07/18/18 20:02; Admin Dose 15 MG; Start 07/18/18 at 18:00; Status Hold Sucralfate (Carafate) 1 gm AC MEALS AND BEDTIME PO Last administered on 07/24/18 22:40; Admin Dose 1 GM; Start 07/18/18 at 21:00 Piperacillin Sod/ Tazobactam Sod 100 ml @ 200 mls/hr Q8 IVPB Last administered on 07/25/18 06:12; Admin Dose 200 MLS/HR; Start 07/18/18 at 22:00 Insulin Aspart (Novolog Insulin Pen) NOVOLOG *MILD* ALGORITHM WITH MEALS BEDTIME SC Last administered on 07/24/18 22:47; Admin Dose 1 UNIT; Start 07/19/18 at 07:55 Miscellaneous Information 1 ea NOTE XX ; Start 07/19/18 at 04:00 Glucose (Glutose) 15 gm Q15M PRN PO DECREASED GLUCOSE; Start 07/19/18 at 04:00 Glucose (Glutose) 22.5 gm Q15M PRN PO DECREASED GLUCOSE; Start 07/19/18 at 04:00 Dextrose (D50w Syringe) 25 ml Q15M PRN IV DECREASED GLUCOSE; Start 07/19/18 at 04:00 Dextrose (D50w Syringe) 50 ml Q15M PRN IV DECREASED GLUCOSE; Start 07/19/18 at 04:00 Glucagon (Glucagen) 1 mg Q15M PRN IM DECREASED GLUCOSE; Start 07/19/18 at 04:00 Glucose (Glutose) 15 gm Q15M PRN BUCCAL DECREASED GLUCOSE; Start 07/19/18 at 04:00 Vancomycin HCl (Vanco Iv Per Pharmacy) VANCOMYCIN PER PHARMACY PER PROTOCOL XX ; Start 07/20/18 at 14:00 Albuterol/ Ipratropium (Duoneb) 3 ml Q4HWA RESP THERAPY HHN Last administered on 07/25/18at 08:18; Admin Dose 3 ML; Start 07/21/18 at 17:00 Acetylcysteine (Mucomyst) 2 ml Q4H RESP THERAPY NEB Last administered on 07/25/18at 08:18; Admin Dose 2 ML; Start 07/21/18 at 17:00 Vancomycin HCl 250 ml @ 125 mls/hr Q36H IVPB Last administered on 07/24/18at 02:01; Admin Dose 125 MLS/HR; Start 07/22/18 at 12:00 Miscellaneous Information (*Rx Drug Level Order Reminder*) VANCO TROUGH @ 1,100 ON... 1100 ONCE XX ; Start 07/25/18 at 11:00; Stop 07/25/18 at 11:01 Insulin Aspart (Novolog Insulin Pen) 9 unit WITH MEALS SC Last administered on 07/24/18at 17:33; Admin Dose 9 UNIT; Start 07/24/18 at 17:55 Insulin Glargine (Lantus) 24 units DAILY@2000 SC Last administered on 07/24/18at 22:48; Admin Dose 24 UNITS; Start 07/24/18 at 20:00 WARREN HOLLIS Jul 25, 2018 10:26
[2018-07-25] MEDS ORDERED: PROPOFOL 100 ML IV ONE ×2 (11:00)
[2018-07-25] MEDS ORDERED: PROPOFOL 200 MG INJ IV SCH (11:00)
--- NOTE | 2018-07-25 11:26 | OPPN ---
Date/Time of Note Date/Time of Note DATE: 07/25/18 TIME: 11:24 Patient already was on ventilator via tracheostomy. He was given propofol 20 mg IV push. Bronchoscope was introduced via tracheostomy. Distal trachea was normal. Alisa was sharp and well defined. Scope was then introduced into the right mainstem bronchus with evaluation of the right upper lobe, bronchus intermedius, lower lobes and middle lobe were all normal without any endobronchial pathology or any mucus. The scope was introduced on the left side which was completely patent and free of any mucus or any endobronchial lesions. The scope was then withdrawn. The patient maintained stable hemodynamics and vital signs. Start time was 11:20 AM, finish time was 11:24 AM. Operative Report Preoperative Diagnosis Pneumonia involving right lung possibly right lung atelectasis Postoperative Diagnosis Bronchoscopy Operation/Procedure Performed Normal bronchoscopy Surgeon see signature line cement tester assistant Nurse Second assist: A Anesthesia: moderate sedation Estimated blood loss: none Transfusion Required none Specimen None Grafts/Implants none Complications none WARREN HOLLIS Jul 25, 2018 11:26
[2018-07-25] MEDS: VANCOMYCIN 1 GM 250 ML IVPB SCH (13:34)
[2018-07-25] MEDS: DIGOXIN 0.25 MG TAB PO SCH (13:38)
--- NOTE | 2018-07-25 15:10 | PN ---
Date/Time of Note Date/Time of Note DATE: 07/25/18 TIME: 15:09 Assessment/Plan VTE Prophylaxis Risk score (from Ns)>0 risk: 8 SCD applied (from Ns): Yes Pharmacological prophylaxis: NA/contraindicated Pharm contraindication: surgical contra Lines/Catheters IV [facility]ter Type (from [facility]): Peripheral IV Urinary Cath still in place: No Assessment/Plan Hospital Course 68 yo male with chronic respiratory failure with trach normally to room air, A Fib, DMII who presents with hypoxia with XR showing R lung collapse Lung collapse leading to hypoxia: - s/p bronchoscopy 07/20 with mucous impaction discovered. XR continues to show R lung collapse however. Repeat bronchoscopy today, management per pulmonary - Thoracentesis done yesterday with only 5 cc removed, fluid sent for culture - Continue abx x 7 day course - Continue mechanical ventilation for now. Normally is on trach collar apparently DMII - Basal/bolus insulin A Fib: - Hold Xarelto for procedures Diastolic CHF: - Compensated Anemia of unclear etiology: - Choreic inflammation demonstrated by iron stores CKD III: - Stable, trend creatinine DC planning: Parvin eval Result Diagram: 07/24/18 0647 07/24/18 0647 Results 24hrs Laboratory Tests Test 07/24/18 15:10 07/24/18 17:21 07/24/18 21:17 07/25/18 02:10 Body Fluid Type THORACENTESIS F LUID Body Fluid 3.6 Volume Body Fluid Color YELLOW Body Fluid CLOUDY Appearance Body Fluid WBC 51382 Body Fluid RBC 96794 (Auto) Body Fluid 77.4 Polynuclear WBCs (%) Body Fluid 22.6 Mononuclear Cells % Auto Body Fluid Total 3.1 Protein Body Fluid 86547 Lactate Dehydrog enase Bedside Glucose 178 182 133 Test 07/25/18 07:35 07/25/18 07:55 07/25/18 10:52 07/25/18 11:56 Bedside Glucose 97 88 Blood Gas Blood arterial Specimen Source Arterial Blood 07/25/2018 8:10: Date Drawn 27 AM Arterial Blood 7.387 pH (Temp corrected) Arterial Blood 41.0 pCO2 (Temp correct) Arterial Blood 84.4 pO2 (Temp corrected) Arterial Blood 24.1 HCO3 Arterial Blood -0.8 Base Excess Arterial Blood 96.6 Oxygen Saturatio n Mikey Test ACCEPTAB Arterial Blood Right Radial Gas Puncture Site Arterial 0.2 Blood Carboxyhem oglobin Arterial Blood 0.3 Methemoglobin Blood Gas A-a O2 153.7 H Differential Oxyhemoglobin 96.1 Percent Blood Gas 37.0 Temperature Blood Gas 14.0 Respiration Rate Blood Gas Actual 16 Respiration Rate Blood Gas VENT - AC Modality FiO2 40.0 Blood Gas Tidal 550.0 Volume Blood Gas Low 5.0 PEEP Setting Blood Gas TM Notified Whom Blood Gas 07/25/2018 8:19: Notified Time 02 AM Vancomycin Level 14.0 Trough Subjective 24 Hr Interval Summary Subjective hx not possible: pt non-verbal Exam/Review of Systems Exam Vitals Vital Signs Date Temp Pulse Resp B/P (MAP) Pulse Ox O2 O2 Flow FiO2 Time Delivery Rate 07/25/18 85 14:01 07/25/18 24 100 13:10 07/25/18 126/58 Mechanical 12:15 (80) Ventilator 07/25/18 40 11:30 07/25/18 98.6 11:26 07/23/18 2.0 14:36 Intake and Output 07/24/18 07/24/18 07/25/18 1515:00 23:00 07:00 IntakeIntake Total 860 ml OutputOutput Total 1200 ml BalanceBalance -340 ml Constitutional: non-verbal Respiratory: clear to auscultation Cardiovascular: regular rate and rhythm Gastrointestinal: soft; No distended Musculoskeletal: nl extremities to inspection Results Results 24hrs Laboratory Tests Test 07/24/18 15:10 07/24/18 17:21 07/24/18 21:17 07/25/18 02:10 Body Fluid Type THORACENTESIS F LUID Body Fluid 3.6 Volume Body Fluid Color YELLOW Body Fluid CLOUDY Appearance Body Fluid WBC 43094 Body Fluid RBC 11584 (Auto) Body Fluid 77.4 Polynuclear WBCs (%) Body Fluid 22.6 Mononuclear Cells % Auto Body Fluid Total 3.1 Protein Body Fluid 45997 Lactate Dehydrog enase Bedside Glucose 178 182 133 Test 07/25/18 07:35 07/25/18 07:55 07/25/18 10:52 07/25/18 11:56 Bedside Glucose 97 88 Blood Gas Blood arterial Specimen Source Arterial Blood 07/25/2018 8:10: Date Drawn 27 AM Arterial Blood 7.387 pH (Temp corrected) Arterial Blood 41.0 pCO2 (Temp correct) Arterial Blood 84.4 pO2 (Temp corrected) Arterial Blood 24.1 HCO3 Arterial Blood -0.8 Base Excess Arterial Blood 96.6 Oxygen Saturatio n Mikey Test ACCEPTAB Arterial Blood Right Radial Gas Puncture Site Arterial 0.2 Blood Carboxyhem oglobin Arterial Blood 0.3 Methemoglobin Blood Gas A-a O2 153.7 H Differential Oxyhemoglobin 96.1 Percent Blood Gas 37.0 Temperature Blood Gas 14.0 Respiration Rate Blood Gas Actual 16 Respiration Rate Blood Gas VENT - AC Modality FiO2 40.0 Blood Gas Tidal 550.0 Volume Blood Gas Low 5.0 PEEP Setting Blood Gas TM Notified Whom Blood Gas 07/25/2018 8:19: Notified Time 02 AM Vancomycin Level 14.0 Trough Medications Medication Current Medications Acetaminophen (Tylenol Tab) 650 mg Q4H PRN PO MILD PAIN LEVEL 1-3 Last administered on 07/22/18 21:03; Admin Dose 650 MG; Start 07/18/18 at 18:00 Albuterol (Proventil 0.083% (Neb)) 2.5 mg Q4H PRN NEB TRACHEOSTOMY Last administered on 07/25/18 05:20; Admin Dose 2.5 MG; Start 07/18/18 at 18:00 Ascorbic Acid (Vitamin C) 500 mg DAILY PO Last administered on 07/24/18 09:23; Admin Dose 500 MG; Start 07/19/18 at 09:00 Chlorhexidine Gluconate (Peridex) 15 ml Q12H MM Last administered on 07/25/18 06:12; Admin Dose 15 ML; Start 07/18/18 at 18:00 Digoxin (Digoxin) 0.25 mg DAILY@1300 PO Last administered on 07/25/18 13:38; Admin Dose 0.25 MG; Start 07/19/18 at 13:00 Lorazepam (Ativan) 1 mg Q6 PRN PO ANXIETY Last administered on 07/22/18 23:17; Admin Dose 1 MG; Start 07/18/18 at 18:00 Pantoprazole (Protonix Tab) 40 mg AC BREAKFAST PO Last administered on 07/24/18 07:49; Admin Dose 40 MG; Start 07/19/18 at 07:00 Polyethylene Glycol (Miralax) 17 gm DAILY PO Last administered on 07/24/18 09:23; Admin Dose 17 GM; Start 07/19/18 at 09:00 Rivaroxaban (Xarelto) 15 mg WITH DINNER PO Last administered on 07/18/18at 20:02; Admin Dose 15 MG; Start 07/18/18 at 18:00; Status Hold Sucralfate (Carafate) 1 gm AC MEALS AND BEDTIME PO Last administered on 07/24/18at 22:40; Admin Dose 1 GM; Start 07/18/18 at 21:00 Piperacillin Sod/ Tazobactam Sod 100 ml @ 200 mls/hr Q8 IVPB Last administered on 07/25/18at 06:12; Admin Dose 200 MLS/HR; Start 07/18/18 at 22:00 Insulin Aspart (Novolog Insulin Pen) NOVOLOG *MILD* ALGORITHM WITH MEALS BEDTIME SC Last administered on 07/24/18at 22:47; Admin Dose 1 UNIT; Start 07/19/18 at 07:55 Miscellaneous Information 1 ea NOTE XX ; Start 07/19/18 at 04:00 Glucose (Glutose) 15 gm Q15M PRN PO DECREASED GLUCOSE; Start 07/19/18 at 04:00 Glucose (Glutose) 22.5 gm Q15M PRN PO DECREASED GLUCOSE; Start 07/19/18 at 04:00 Dextrose (D50w Syringe) 25 ml Q15M PRN IV DECREASED GLUCOSE; Start 07/19/18 at 04:00 Dextrose (D50w Syringe) 50 ml Q15M PRN IV DECREASED GLUCOSE; Start 07/19/18 at 04:00 Glucagon (Glucagen) 1 mg Q15M PRN IM DECREASED GLUCOSE; Start 07/19/18 at 04:00 Glucose (Glutose) 15 gm Q15M PRN BUCCAL DECREASED GLUCOSE; Start 07/19/18 at 04:00 Vancomycin HCl (Vanco Iv Per Pharmacy) VANCOMYCIN PER PHARMACY PER PROTOCOL XX ; Start 07/20/18 at 14:00 Albuterol/ Ipratropium (Duoneb) 3 ml Q4HWA RESP THERAPY HHN Last administered on 07/25/18at 13:17; Admin Dose 3 ML; Start 07/21/18 at 17:00 Acetylcysteine (Mucomyst) 2 ml Q4H RESP THERAPY NEB Last administered on 07/25/18at 13:18; Admin Dose 2 ML; Start 07/21/18 at 17:00 Vancomycin HCl 250 ml @ 125 mls/hr Q36H IVPB Last administered on 07/25/18at 13:34; Admin Dose 125 MLS/HR; Start 07/22/18 at 12:00 Insulin Aspart (Novolog Insulin Pen) 9 unit WITH MEALS SC Last administered on 07/24/18at 17:33; Admin Dose 9 UNIT; Start 07/24/18 at 17:55 Insulin Glargine (Lantus) 24 units DAILY@2000 SC Last administered on 07/24/18at 22:48; Admin Dose 24 UNITS; Start 07/24/18 at 20:00 IRINA LEACH Jul 25, 2018 15:10
[2018-07-25] MEDS: INSULIN GLARGINE [LANTus] (100 UNITS/ML) SYG SC SCH (20:09)
[2018-07-26] VITALS (21 sets, daily range): BP systolic 121–175; BP diastolic 58–89; PULSE 65–109; RESP 14–24
[2018-07-26] MEDS: ACETYLCYSTEINE 20% 4 ML VIAL NEB SCH ×2 (01:17→05:05)
[2018-07-26] MEDS: ALBUTEROL/IPRATROPIUM (NEB) 3 ML AMP HHN SCH ×6 (01:18→21:59)
[2018-07-26] MEDS: PIPER-TAZO 3.375 GM IV (PMX) 100 ML IVPB SCH ×3 (05:38→21:21)
[2018-07-26] MEDS: CHLORHEXIDINE GLUCONATE 15 ML UD CUP MM SCH ×2 (05:38→17:56)
[2018-07-26] MEDS: LORAZEPAM 1 MG TAB PO PRN (05:38)
[2018-07-26] MEDS: INSULIN ASPART [NOVOLOG] 3 ML PEN SC SCH ×7 (07:55→20:15)
[2018-07-26] MEDS: POLYETHYLENE GLYCOL 17 GM PACKET PO SCH (08:12)
[2018-07-26] MEDS: PANTOPRAZOLE (EC) 40 MG TAB PO SCH (08:13)
[2018-07-26] MEDS: SUCRALFATE 1 GM TAB PO SCH ×4 (08:13→20:15)
[2018-07-26] MEDS: ASCORBIC ACID 500 MG TAB PO SCH (08:13)
--- NOTE | 2018-07-26 09:28 | CONS ---
Assessment/Plan Assessment/Plan Assessment/Plan (Daily) Assessment and recommendations; 1. Patient with history of VDR F admitted for severe right-sided pneumonia, status post 2 bronchoscopies. First 1 revealed mucus impaction involving the right mainstem bronchus, bronchoscopy yesterday was completely normal. The patient also status post attempted thoracentesis on the right side, only 5 mL of fluid to be removed. The clinical findings are consistent with extensive right lung consolidation. Continue current supportive care. Obtain follow-up chest x-ray in 48 hours. Consultation Date/Type/Reason Admit Date/Time Jul 18, 2018 at 16:47 Initial Consult Date 07/19/18 Type of Consult Pulmonary patient is a 68-year-old male who Lives in [facility] was sent over to the hospital because of hypoxemia. Upon evaluation chest x-ray was done which is showing extensive pneumonia involving right lung which was subsequently confirmed by CT of the chest. Patient also has bilateral pleural effusions. Patient is on chronic ventilator and by the time I saw him appears very comfortable and denied having any chest pain, shortness of breath, coughing, hemoptysis. Past medical history; next 1. VDR F. Etiology for that is unclear. 2. History of CHF, anemia, chronic renal insufficiency, diabetes and atrial fibrillation. Medications; reviewed. Allergies; none. Social history; patient is an ex-smoker. Family history; noncontributory. Occupational history; noncontributory. Review of systems; denies any headache, visual changes. Any chest pain, denies any coughing, hemoptysis. Any abdominal pain, nausea vomiting. General exam; elderly male, awake and alert. Currently in no distress. On ventilator via tracheostomy. Date/Time of Note DATE: 07/26/18 TIME: 09:25 24 HR Interval Summary Free Text/Dictation Patient's condition is stable. Remains awake and alert. Has remained hemodynamically stable. Exam; elderly male, on ventilator via tracheostomy, awake, currently no distress. Exam/Review of Systems Exam Vitals Vital Signs Date Temp Pulse Resp B/P (MAP) Pulse Ox O2 O2 Flow FiO2 Time Delivery Rate 07/26/18 74 08:51 07/26/18 17 99 40 07:55 07/26/18 97.8 148/67 Mechanical 07:25 (94) Ventilator 07/23/18 2.0 14:36 Intake and Output 07/25/18 07/25/18 07/26/18 1515:00 23:00 07:00 IntakeIntake Total 100 ml 1150 ml 600 ml OutputOutput Total 900 ml 600 ml BalanceBalance 100 ml 250 ml 0 ml Exam H EENT exam; supple neck, no JVD. No lymphadenopathy. Midline trachea. No thyromegaly. Patient is edentulous. Tracheostomy in place. Chest exam; diminished breath sounds right lung. Left lung is fairly clear. S1-S2 audible, no murmurs. Regular rhythm. Abdomen exam; soft, no organomegaly. G-tube in place. Bowel sounds audible. Extremity exam; peripheral edema clubbing. CORN HUSKER MACHINE OPERATOR exam; no focal deficit. Results Result Diagram: 07/24/18 0647 07/24/18 0647 Results 24hrs Laboratory Tests Test 07/25/18 10:52 07/25/18 11:56 07/25/18 17:13 07/25/18 20:07 Vancomycin Level 14.0 Trough Bedside Glucose 88 176 137 Test 07/26/18 08:11 Bedside Glucose 113 Medications Medication Current Medications Acetaminophen (Tylenol Tab) 650 mg Q4H PRN PO MILD PAIN LEVEL 1-3 Last administered on 07/22/18 21:03; Admin Dose 650 MG; Start 07/18/18 at 18:00 Albuterol (Proventil 0.083% (Neb)) 2.5 mg Q4H PRN NEB TRACHEOSTOMY Last administered on 07/25/18 05:20; Admin Dose 2.5 MG; Start 07/18/18 at 18:00 Ascorbic Acid (Vitamin C) 500 mg DAILY PO Last administered on 07/26/18 08:13; Admin Dose 500 MG; Start 07/19/18 at 09:00 Chlorhexidine Gluconate (Peridex) 15 ml Q12H MM Last administered on 07/26/18 05:38; Admin Dose 15 ML; Start 07/18/18 at 18:00 Digoxin (Digoxin) 0.25 mg DAILY@1300 PO Last administered on 07/25/18 13:38; Admin Dose 0.25 MG; Start 07/19/18 at 13:00 Lorazepam (Ativan) 1 mg Q6 PRN PO ANXIETY Last administered on 07/26/18 05:38; Admin Dose 1 MG; Start 07/18/18 at 18:00 Pantoprazole (Protonix Tab) 40 mg AC BREAKFAST PO Last administered on 07/26/18at 08:13; Admin Dose 40 MG; Start 07/19/18 at 07:00 Polyethylene Glycol (Miralax) 17 gm DAILY PO Last administered on 07/26/18at 08:12; Admin Dose 17 GM; Start 07/19/18 at 09:00 Rivaroxaban (Xarelto) 15 mg WITH DINNER PO Last administered on 07/18/18at 20:02; Admin Dose 15 MG; Start 07/18/18 at 18:00; Status Hold Sucralfate (Carafate) 1 gm AC MEALS AND BEDTIME PO Last administered on 07/26/18at 08:13; Admin Dose 1 GM; Start 07/18/18 at 21:00 Piperacillin Sod/ Tazobactam Sod 100 ml @ 200 mls/hr Q8 IVPB Last administered on 07/26/18at 05:38; Admin Dose 200 MLS/HR; Start 07/18/18 at 22:00 Insulin Aspart (Novolog Insulin Pen) NOVOLOG *MILD* ALGORITHM WITH MEALS BEDTIME SC Last administered on 07/25/18at 17:33; Admin Dose 1 UNIT; Start 07/19/18 at 07:55 Miscellaneous Information 1 ea NOTE XX ; Start 07/19/18 at 04:00 Glucose (Glutose) 15 gm Q15M PRN PO DECREASED GLUCOSE; Start 07/19/18 at 04:00 Glucose (Glutose) 22.5 gm Q15M PRN PO DECREASED GLUCOSE; Start 07/19/18 at 04:00 Dextrose (D50w Syringe) 25 ml Q15M PRN IV DECREASED GLUCOSE; Start 07/19/18 at 0 4:00 Dextrose (D50w Syringe) 50 ml Q15M PRN IV DECREASED GLUCOSE; Start 07/19/18 at 04:00 Glucagon (Glucagen) 1 mg Q15M PRN IM DECREASED GLUCOSE; Start 07/19/18 at 04:00 Glucose (Glutose) 15 gm Q15M PRN BUCCAL DECREASED GLUCOSE; Start 07/19/18 at 04:00 Vancomycin HCl (Vanco Iv Per Pharmacy) VANCOMYCIN PER PHARMACY PER PROTOCOL XX ; Start 07/20/18 at 14:00 Albuterol/ Ipratropium (Duoneb) 3 ml Q4HWA RESP THERAPY HHN Last administered on 07/26/18 05:05; Admin Dose 3 ML; Start 07/21/18 at 17:00 Acetylcysteine (Mucomyst) 2 ml Q4H RESP THERAPY NEB Last administered on 07/26/18 05:05; Admin Dose 2 ML; Start 07/21/18 at 17:00 Vancomycin HCl 250 ml @ 125 mls/hr Q36H IVPB Last administered on 07/25/18at 13:34; Admin Dose 125 MLS/HR; Start 07/22/18 at 12:00 Insulin Aspart (Novolog Insulin Pen) 9 unit WITH MEALS SC Last administered on 07/26/18 08:21; Admin Dose 9 UNIT; Start 07/24/18 at 17:55 Insulin Glargine (Lantus) 24 units DAILY@2000 SC Last administered on 07/25/18 20:09; Admin Dose 24 UNITS; Start 07/24/18 at 20:00 WARREN HOLLIS Jul 26, 2018 09:27
[2018-07-26] MEDS: ACETAMINOPHEN 325 MG TAB PO PRN ×3 (09:41→22:16)
[2018-07-26] MEDS: DIGOXIN 0.25 MG TAB PO SCH (12:17)
--- NOTE | 2018-07-26 13:20 | RADRPT ---
Vent Rate: 77 bpm RR Interval: 0 msec AL Interval: 198 msec QRS Duration: 80 msec QT Interval: 332 msec QTC Interval: 375 msec P-R-T [place]: 63 - 13 - 61 degrees Normal sinus rhythm Nonspecific T wave abnormality Abnormal ECG Electronically Signed By: Bravo Dodd
--- NOTE | 2018-07-26 15:50 | DS ---
Date/Time of Note Date/Time of Note DATE: 07/26/18 TIME: 15:26 Discharge Summary Admission/Discharge Info Admit Date/Time Jul 18, 2018 at 16:47 Discharge Date/Time July 26, 2018 Discharge Diagnosis 68 yo male with chronic respiratory failure with trach normally to room air, A Fib, DMII who presents with hypoxia with XR showing R lung collapse Lung collapse leading to hypoxia: - s/p bronchoscopy 07/20 with mucous impaction discovered. XR continues to show R lung collapse however. Repeat bronchoscopy yesterday was normal - Thoracentesis done with only 5 cc removed, fluid sent for culture - Continue abx x 7 day course - Continue mechanical ventilation for now. Normally is on trach collar apparently -DC to [facility], ID to follow at [facility] DMII - Basal/bolus insulin A Fib: -Resume Xarelto Diastolic CHF: - Compensated Anemia of chronic disease CKD III: - Stable Patient Condition: Good Hospital Course Patient is a 68 yo male with chronic respiratory failure with trach normally to room air, A Fib, DMII who presents with hypoxia with XR showing R lung collapse. Patient status post bronchoscopy on 07/20 which showed mucus impaction, patient continued to have right lung opacification, thoracentesis only removed 5 cc of fluid, repeat bronchoscopy was done which was normal. Findings are consistent with right lung consolidation and is on an antibiotic course. Patient appears to reside in a congregate living but is not stable to return at this time. business initiatives manager arrange for placement and follows continue antibiotic course, ID to follow patient at [facility]. On the day of discharge patient's vitals, labs and ph ysical exam are stable Home Meds Reported Medications Insulin Aspart* (Novolog Insulin Pen*) 100 Unit/Ml Soln, 0 SC .SLIDING SCALE AC, EA OR 5 UNITS AC MEALS TID 07/18/18 Insulin Glargine,Hum.rec.anlog (Basaglar Kwikpen U-100) 100 Unit/1 Ml Insuln.pen, 28 UNIT SC QHS, EA 07/18/18 Insulin Glargine,Hum.rec.anlog (Basaglar Kwikpen U-100) 100 Unit/1 Ml Insuln.pen, 18 UNIT SC QAM, EA 07/18/18 Acetaminophen* (Acetaminophen*) 500 MG Extra Strength Tablet, 1000 MG PO Q8H PRN for PAIN, TAB 07/18/18 Acetaminophen* (Tylenol*) 325 Mg Tablet, 650 MG PO Q4H PRN for MILD PAIN LEVEL 1-3, TAB AND FEVER 07/18/18 Ascorbic Acid (Vitamin C) 500 Mg Tab, 500 MG PO DAILY, TAB 07/18/18 Lorazepam* (Lorazepam*) 1 Mg Tablet, 1 MG PO Q6 PRN for ANXIETY, #60 TAB 07/18/18 Sucralfate* (Carafate*) 1 Gm Tab, 1 GM PO AC MEALS AND BEDTIME, TAB 07/18/18 Rivaroxaban* (Xarelto*) 15 Mg Tablet, 15 MG PO WITH DINNER, TAB 07/18/18 Multivitamin with Minerals (Multivitamins with Minerals) 1 Each Tablet, 1 EACH PO DAILY, TAB 07/18/18 Pantoprazole* (Pantoprazole*) 40 Mg Tablet.dr, 40 MG PO AC BREAKFAST, TAB 07/18/18 Polyethylene Glycol* (Miralax*) 17 Gm Powd.pack, 17 GM PO DAILY, #30 PACKET 07/18/18 Ferrous Sulfate* (Ferrous Sulfate*) 325 Mg Tabec, 325 MG PO DAILY, TAB 07/18/18 Digoxin* (Digitek*) 250 Mcg Tablet, 0.25 MG PO DAILY, TAB HOLD IF HR<60 07/18/18 Cranberry Fruit (CRANBERRY) 450 Mg Tablet, 450 MG PO DAILY, TAB 07/18/18 Chlorhexidine Gluconate (Peridex) 473 Ml Mouthwash, 15 ML MM Q12H, BOTTLE 07/18/18 Ipratropium-Albuterol (Ipratropium-Albuterol) 0.5-3 Mg/3 Ml Ampul.neb, 3 ML INHALATION Q4H PRN for VIA TRACHEOSTOMY, #30 VIAL 07/18/18 Albuterol Sulfate* (Albuterol Sulfate* Neb) 0.083%-3 Ml Neb, 2.5 MG NEB Q4H PRN for TRACHEOSTOMY, #30 VIAL AND Q6H NEEDED 07/18/18 Follow-up Plan Follow-up with physicians at [facility] Primary Care Provider Tay Friedman MD Time spent on discharge: > 30 minutes IRINA LEACH Jul 26, 2018 15:50
--- NOTE | 2018-07-26 19:47 | CONS ---
DATE OF ADMISSION: 07/18/2018 DATE OF CONSULTATION: 07/26/2018 TYPE OF CONSULTATION: Infectious disease. REASON FOR CONSULTATION: Antibiotic management. HISTORY OF PRESENT ILLNESS: Richard Cardona is an unfortunate 68-year-old male who was sent in from [facility] for hypoxemia. His past problems include: 1. Chronic respiratory failure with hypoxia. 2. Tracheostomy. 3. Diabetes mellitus. 4. Chronic renal disease stage I. 5. Cardiomyopathy. 6. Morbid obesity. 7. Atrial fibrillation. The patient is complaining of chest discomfort. 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 SOCIAL HISTORY: He is a former smoker. He uses methamphetamine. He does not drink. FAMILY HISTORY: Noncontributory. HOSPITAL COURSE: On admission, his white count was 26.2, H and H of 8.5 and 29.8, platelet count 405 ,000. BUN and creatinine is 56/1.77, glucose of 347. He was started on vancomycin and cefepime. est x-ray showed complete whiteout of the right lung, fluid versus consolidation. The patient had andie ng collapse leading to hypoxemia. He had a bronchoscopy on 07/20/2018 with mucus impaction discovere d. X-ray continues to show right lung collapse however. Repeat bronchoscopy on 07/25/2018 was dodie l. Thoracentesis was done, but only 5 mL were removed. The patient is on a trach collar. His chest x-ray shows cardiomegaly, interval increase in consolidation throughout the right lung on 07/25/2018 , minimal aeration of the right lung, moderate to large right pleural effusion, stable patchy infiltr ates in the left lower lobe, central pulmonary vascular congestion and interstitial prominence in the left lung. Microbiology: He grew out 1 bottle of peptostreptococcus out of 2 on 07/18/2018. His w chet count on 07/24/2018 was 19.3, H and H of 7 and 23.9, platelet count 280,000. BUN and creatinine is 31/2.23. The thoracentesis on 07/24/2018 showed 37,248. Total protein was 3.1 consistent with a n exudate and his LDH was 28,007, also high. The patient was seen in consultation by Dr. Kris haider, history of ventilatory dependent respiratory failure, admitted for hypoxemia, complete right andie ng atelectasis possibly from either right mainstem tumor versus mucus plugging which they found out t o be secondary to mucus plugging on bronchoscopy. As noted, the repeat bronchoscopy was normal. The patient is currently on vancomycin and Zosyn. He is on his day 8 of vancomycin and Zosyn. Blood cu lture was peptostreptococcus in 1/4 bottles. No repeat cultures were done. PHYSICAL EXAMINATION: GENERAL: The patient is somewhat obese male who is sleepy but arousable, in no acute distress. He h as a tracheostomy in place. SKIN: Without generalized rash. HEENT: Within normal limits. NECK: Tracheostomy on vent. CHEST: Decreased breath sounds bilaterally, right greater than left. HEART: Without murmur or gallop. ABDOMEN: Soft, nontender, without organosplenomegaly or masses. EXTREMITIES: Without cyanosis, clubbing or edema. RECTAL AND GENITAL: Deferred. NEUROLOGIC: No focal neurological abnormality. IMPRESSION AND PLAN: The patient is scheduled to be transferred to [facility] tomorrow. At that time, [facility] can probably stop his antibiotic therapy. For the present time, I am going to repeat blood culture s and we will be happy to follow him at [facility]. I will dictate my findings to the hospitalist and to the pulmonary team. Dictated By: YARY NORTON MD, JD/XAVIER Conf#: [id number] DID#: [id number] CC: IRINA LEACH MD;*End*
[2018-07-26] MEDS: INSULIN GLARGINE [LANTus] (100 UNITS/ML) SYG SC SCH (20:55)
[2018-07-27] VITALS (23 sets, daily range): BP systolic 124–158; BP diastolic 60–73; PULSE 64–91; RESP 11–25
[2018-07-27] MEDS: VANCOMYCIN 1 GM 250 ML IVPB SCH (01:23)
[2018-07-27] MEDS: PIPER-TAZO 3.375 GM IV (PMX) 100 ML IVPB SCH ×3 (06:05→22:26)
[2018-07-27] MEDS: CHLORHEXIDINE GLUCONATE 15 ML UD CUP MM SCH ×2 (06:06→18:09)
[2018-07-27] MEDS: PANTOPRAZOLE (EC) 40 MG TAB PO SCH (07:49)
[2018-07-27] MEDS: INSULIN ASPART [NOVOLOG] 3 ML PEN SC SCH ×7 (07:49→20:28)
[2018-07-27] MEDS: SUCRALFATE 1 GM TAB PO SCH ×4 (07:49→20:28)
[2018-07-27] MEDS: ACETAMINOPHEN 325 MG TAB PO PRN ×2 (07:49→12:10)
[2018-07-27] MEDS: POLYETHYLENE GLYCOL 17 GM PACKET PO SCH (08:08)
[2018-07-27] MEDS: ASCORBIC ACID 500 MG TAB PO SCH (08:08)
[2018-07-27] MEDS: ALBUTEROL/IPRATROPIUM (NEB) 3 ML AMP HHN SCH ×4 (08:54→21:08)
--- NOTE | 2018-07-27 09:52 | CONS ---
Assessment/Plan Assessment/Plan Assessment/Plan (Daily) Ventilator setting; AC of 14, tidal volume 400, PEEP of 5, 40% FiO2. Assessment and recommendations; 1. Patient with chronic renal insufficiency, diabetes, and atrial fibrillation. VDR F admitted for severe right-sided pneumonia, status post 2 bronchoscopies. First 1 revealed right mainstem mucous plugging which was removed, follow-up chest x-ray showed persistent right lung infiltrative/atelectatic changes, repeat bronchoscopy was negative for any endobronchial mucus infection. Patient currently on appropriate empiric antimicrobial regimen. 2. Status post attempted right thoracentesis, only 5 mL of fluid to be removed. 3. Other comorbidities include history of diabetes, atrial fibrillation, and chronic renal insufficiency. Continue current supportive care. Obtain follow-up chest x-ray in 48 hours. Patient to be transferred to [facility] for further care. Consultation Date/Type/Reason Admit Date/Time Jul 18, 2018 at 16:47 Initial Consult Date 07/19/18 Type of Consult Pulmonary patient is a 68-year-old male who Lives in [facility] was sent over to the hospital because of hypoxemia. Upon evaluation chest x-ray was done which is showing extensive pneumonia involving right lung which was subsequently confirmed by CT of the chest. Patient also has bilateral pleural effusions. Patient is on chronic ventilator and by the time I saw him appears very comfortable and denied having any chest pain, shortness of breath, coughing, hemoptysis. Past medical history; next 1. VDR F. Etiology for that is unclear. 2. History of CHF, anemia, chronic renal insufficiency, diabetes and atrial fibrillation. Medications; reviewed. Allergies; none. Social history; patient is an ex-smoker. Family history; noncontributory. Occupational history; noncontributory. Review of systems; denies any headache, visual changes. Any chest pain, denies any coughing, hemoptysis. Any abdominal pain, nausea vomiting. General exam; elderly male, awake and alert. Currently in no distress. On ventilator via tracheostomy. Date/Time of Note DATE: 07/27/18 TIME: 09:49 24 HR Interval Summary Free Text/Dictation Patient's condition remains stable. Remains awake and alert. Has remained hemodynamically stable. General exam; elderly male, on ventilator via tracheostomy, currently no distress. Exam/Review of Systems Exam Vitals Vital Signs Date Temp Pulse Resp B/P (MAP) Pulse Ox O2 O2 Flow FiO2 Time Delivery Rate 07/27/18 83 09:28 07/27/18 21 100 40 08:54 07/27/18 98.7 158/70 Mechanical 08:00 (99) Ventilator 07/23/18 2.0 14:36 Intake and Output 07/26/18 07/26/18 07/27/18 1414:59 22:59 06:59 IntakeIntake Total 1000 ml 350 ml OutputOutput Total 1000 ml BalanceBalance 0 ml 350 ml Exam HEENT exam; supple neck, no JVD. No lymphadenopathy. Midline trachea. No thyromegaly. Patient is edentulous. Tracheostomy in place. Insertion site is clean. Chest exam; diminished breath sounds right lung. Left lung is fairly clear. S1-S2 audible, no murmurs. Regular rhythm. Abdomen exam; soft, no organomegaly. Bowel sounds audible. Extremity exam; peripheral edema clubbing. RAILROAD CONSTRUCTION DIRECTOR exam; no focal deficit. Results Result Diagram: 07/24/18 0647 07/26/18 0745 Results 24hrs Laboratory Tests Test 07/26/18 12:09 07/26/18 17:51 07/26/18 20:13 07/27/18 07:48 Bedside Glucose 124 82 153 95 Medications Medication Current Medications Acetaminophen (Tylenol Tab) 650 mg Q4H PRN PO MILD PAIN LEVEL 1-3 Last administered on 07/27/18at 07:49; Admin Dose 650 MG; Start 07/18/18 at 18:00 Albuterol (Proventil 0.083% (Neb)) 2.5 mg Q4H PRN NEB TRACHEOSTOMY Last administered on 07/25/18at 05:20; Admin Dose 2.5 MG; Start 07/18/18 at 18:00 Ascorbic Acid (Vitamin C) 500 mg DAILY PO Last administered on 07/27/18 08:08; Admin Dose 500 MG; Start 07/19/18 at 09:00 Chlorhexidine Gluconate (Peridex) 15 ml Q12H MM Last administered on 07/27/18at 06:06; Admin Dose 15 ML; Start 07/18/18 at 18:00 Digoxin (Digoxin) 0.25 mg DAILY@1300 PO Last administered on 07/26/18at 12:17; Admin Dose 0.25 MG; Start 07/19/18 at 13:00 Lorazepam (Ativan) 1 mg Q6 PRN PO ANXIETY Last administered on 07/26/18 05:38; Admin Dose 1 MG; Start 07/18/18 at 18:00 Pantoprazole (Protonix Tab) 40 mg AC BREAKFAST PO Last administered on 07:49; Admin Dose 40 MG; Start 07/19/18 at 07:00 Polyethylene Glycol (Miralax) 17 gm DAILY PO Last administered on 07/26/18at 08:12; Admin Dose 17 GM; Start 07/19/18 at 09:00 Rivaroxaban (Xarelto) 15 mg WITH DINNER PO Last administered on 07/18/18 20:02; Admin Dose 15 MG; Start 07/18/18 at 18:00; Status Hold Sucralfate (Carafate) 1 gm AC MEALS AND BEDTIME PO Last administered on 07/27/18 07:49; Admin Dose 1 GM; Start 07/18/18 at 21:00 Piperacillin Sod/ Tazobactam Sod 100 ml @ 200 mls/hr Q8 IVPB Last administered on 07/27/18 06:05; Admin Dose 200 MLS/HR; Start 07/18/18 at 22:00 Insulin Aspart (Novolog Insulin Pen) NOVOLOG *MILD* ALGORITHM WITH MEALS BEDTIME SC Last administered on 07/25/18at 17:33; Admin Dose 1 UNIT; Start 07/19/18 at 07:55 Miscellaneous Information 1 ea NOTE XX ; Start 07/19/18 at 04:00 Glucose (Glutose) 15 gm Q15M PRN PO DECREASED GLUCOSE; Start 07/19/18 at 04:00 Glucose (Glutose) 22.5 gm Q15M PRN PO DECREASED GLUCOSE; Start 07/19/18 at 04:00 Dextrose (D50w Syringe) 25 ml Q15M PRN IV DECREASED GLUCOSE; Start 07/19/18 at 04:00 Dextrose (D50w Syringe) 50 ml Q15M PRN IV DECREASED GLUCOSE; Start 07/19/18 at 04:00 Glucagon (Glucagen) 1 mg Q15M PRN IM DECREASED GLUCOSE; Start 07/19/18 at 04:00 Glucose (Glutose) 15 gm Q15M PRN BUCCAL DECREASED GLUCOSE; Start 07/19/18 at 04:00 Vancomycin HCl (Vanco Iv Per Pharmacy) VANCOMYCIN PER PHARMACY PER PROTOCOL XX ; Start 07/20/18 at 14:00 Albuterol/ Ipratropium (Duoneb) 3 ml Q4HWA RESP THERAPY HHN Last administered on 07/27/18 08:54; Admin Dose 3 ML; Start 07/21/18 at 17:00 Vancomycin HCl 250 ml @ 125 mls/hr Q36H IVPB Last administered on 07/27/18 01:23; Admin Dose 125 MLS/HR; Start 07/22/18 at 12:00 Insulin Aspart (Novolog Insulin Pen) 9 unit WITH MEALS SC Last administered on 07/27/18 08:04; Admin Dose 9 UNIT; Start 07/24/18 at 17:55 Insulin Glargine (Lantus) 24 units DAILY@2000 SC Last administered on 07/26/18 20:55; Admin Dose 24 UNITS; Start 07/24/18 at 20:00 WARREN HOLLIS Jul 27, 2018 09:52
--- NOTE | 2018-07-27 12:09 | DS ---
Date/Time of Note Date/Time of Note DATE: 07/27/18 TIME: 12:07 Discharge Summary Admission/Discharge Info Admit Date/Time Jul 18, 2018 at 16:47 Discharge Date/Time July 27, 2018 Discharge Diagnosis 68 yo male with chronic respiratory failure with trach normally to room air, A Fib, DMII who presents with hypoxia with XR showing R lung collapse Lung collapse leading to hypoxia: - s/p bronchoscopy 07/20 with mucous impaction discovered. XR continues to show R lung collapse however. Repeat bronchoscopy yesterday was normal - Thoracentesis done with only 5 cc removed, fluid sent for culture - Continue abx x 7 day course - Continue mechanical ventilation for now. Normally is on trach collar apparently -DC to [facility], ID to follow at [facility] -Of note effusions appear to be loculated but will continue antibiotics for now per discussion with Dr. Ponce DMII - Basal/bolus insulin A Fib: -Resume Xarelto Diastolic CHF: - Compensated Anemia of chronic disease CKD III: - Stable Patient Condition: Good Hospital Course Patient is a 68 yo male with chronic respiratory failure with trach normally to room air, A Fib, DMII who presents with hypoxia with XR showing R lung collapse. Patient status post bronchoscopy on 07/20 which showed mucus impaction, patient continued to have right lung opacification, thoracentesis only removed 5 cc of fluid, repeat bronchoscopy was done which was normal. Findings are consistent with right lung consolidation and is on an antibiotic course. Patient appears to reside in a congregate living but is not stable to return at this time. project manager industrial arrange for placement and follows continue antibiotic course, ID to follow patient at [facility]. On the day of discharge patient's vitals, labs and physical exam are stable Home Meds Reported Medications Insulin Aspart* (Novolog Insulin Pen*) 100 Unit/Ml Soln, 0 SC .SLIDING SCALE AC, EA OR 5 UNITS AC MEALS TID 07/18/18 Insulin Glargine,Hum.rec.anlog (Basaglar Kwikpen U-100) 100 Unit/1 Ml Insuln.pen, 28 UNIT SC QHS, EA 07/18/18 Insulin Glargine,Hum.rec.anlog (Basaglar Kwikpen U-100) 100 Unit/1 Ml Insuln.pen, 18 UNIT SC QAM, EA 07/18/18 Acetaminophen* (Acetaminophen*) 500 MG Extra Strength Tablet, 1000 MG PO Q8H PRN for PAIN, TAB 07/18/18 Acetaminophen* (Tylenol*) 325 Mg Tablet, 650 MG PO Q4H PRN for MILD PAIN LEVEL 1-3, TAB AND FEVER 07/18/18 Ascorbic Acid (Vitamin C) 500 Mg Tab, 500 MG PO DAILY, TAB 07/18/18 Lorazepam* (Lorazepam*) 1 Mg Tablet, 1 MG PO Q6 PRN for ANXIETY, #60 TAB 07/18/18 Sucralfate* (Carafate*) 1 Gm Tab, 1 GM PO AC MEALS AND BEDTIME, TAB 07/18/18 Rivaroxaban* (Xarelto*) 15 Mg Tablet, 15 MG PO WITH DINNER, TAB 07/18/18 Multivitamin with Minerals (Multivitamins with Minerals) 1 Each Tablet, 1 EACH PO DAILY, TAB 07/18/18 Pantoprazole* (Pantoprazole*) 40 Mg Tablet.dr, 40 MG PO AC BREAKFAST, TAB 07/18/18 Polyethylene Glycol* (Miralax*) 17 Gm Powd.pack, 17 GM PO DAILY, #30 PACKET 07/18/18 Ferrous Sulfate* (Ferrous Sulfate*) 325 Mg Tabec, 325 MG PO DAILY, TAB 07/18/18 Digoxin* (Digitek*) 250 Mcg Tablet, 0.25 MG PO DAILY, TAB HOLD IF HR<60 07/18/18 Cranberry Fruit (CRANBERRY) 450 Mg Tablet, 450 MG PO DAILY, TAB 07/18/18 Chlorhexidine Gluconate (Peridex) 473 Ml Mouthwash, 15 ML MM Q12H, BOTTLE 07/18/18 Ipratropium-Albuterol (Ipratropium-Albuterol) 0.5-3 Mg/3 Ml Ampul.neb, 3 ML INHALATION Q4H PRN for VIA TRACHEOSTOMY, #30 VIAL 07/18/18 Albuterol Sulfate* (Albuterol Sulfate* Neb) 0.083%-3 Ml Neb, 2.5 MG NEB Q4H PRN for TRACHEOSTOMY, #30 VIAL AND Q6H NEEDED 07/18/18 Follow-up Plan Follow-up with physicians at [facility] Primary Care Provider Tay Friedman MD Time spent on discharge: > 30 minutes IRINA LEACH Jul 27, 2018 12:09
[2018-07-27] MEDS: DIGOXIN 0.25 MG TAB PO SCH (12:10)
--- NOTE | 2018-07-27 13:05 | CONS ---
Assessment/Plan Assessment/Plan Hospital Course (Demo Recall) Patient is alert looks comfortable no fevers overnight. No labs Indwelling straight back Antimicrobials: Vancomycin, Zosyn Chest x-ray 2 days ago revealed stable patchy infiltrates in left lower lobe Physical examination: Chronically ill-appearing elderly man who is alert in no distress. Head atraumatic normocephalic sclera nonicteric. Neck is supple chest rise symmetrical breath sounds diminished bases. Heart: S1-S2. Abdomen soft bowel sounds present. Extremities without cyanosis. Skin: Patient has lesions on his penis status post condom catheter Assessment: 1. Pneumonia 2. Bacteremia 3. Penile lesions secondary to condom catheter and moisture 4. Chronic respiratory failure and dysphagia 5. Diabetes 6. Atrial fibrillation Plan: Patient remains stable, pending repeat blood cultures, consider placement of Vergara catheter to keep penile area clean and dry to allow lesions to heal. Pending discharge to [place] Consultation Date/Type/Reason Admit Date/Time Jul 18, 2018 at 16:47 Initial Consult Date 07/19/18 Type of Consult id Date/Time of Note DATE: 07/27/18 TIME: 13:05 Exam/Review of Systems Exam Vitals Vital Signs Date Temp Pulse Resp B/P (MAP) Pulse Ox O2 O2 Flow FiO2 Time Delivery Rate 07/27/18 98.3 86 16 157/73 99 Mechanical 11:41 (101) Ventilator 07/27/18 40 11:19 07/23/18 2.0 14:36 Intake and Output 07/26/18 07/26/18 07/27/18 1515:00 23:00 07:00 IntakeIntake Total 1000 ml 350 ml OutputOutput Total 1000 ml BalanceBalance 0 ml 350 ml Results Result Diagram: 07/24/18 0647 07/26/18 0745 Results 24hrs Laboratory Tests Test 07/26/18 17:51 07/26/18 20:13 07/27/18 07:48 07/27/18 11:47 Bedside Glucose 82 153 95 102 Medications Medication Current Medications Acetaminophen (Tylenol Tab) 650 mg Q4H PRN PO MILD PAIN LEVEL 1-3 Last administered on 07/27/18at 12:10; Admin Dose 650 MG; Start 07/18/18 at 18:00 Albuterol (Proventil 0.083% (Neb)) 2.5 mg Q4H PRN NEB TRACHEOSTOMY Last administered on 07/25/18 05:20; Admin Dose 2.5 MG; Start 07/18/18 at 18:00 Ascorbic Acid (Vitamin C) 500 mg DAILY PO Last administered on 07/27/18 08:08; Admin Dose 500 MG; Start 07/19/18 at 09:00 Chlorhexidine Gluconate (Peridex) 15 ml Q12H MM Last administered on 07/27/18 06:06; Admin Dose 15 ML; Start 07/18/18 at 18:00 Digoxin (Digoxin) 0.25 mg DAILY@1300 PO Last administered on 07/27/18 12:10; Admin Dose 0.25 MG; Start 07/19/18 at 13:00 Lorazepam (Ativan) 1 mg Q6 PRN PO ANXIETY Last administered on 07/26/18 05:38; Admin Dose 1 MG; Start 07/18/18 at 18:00 Pantoprazole (Protonix Tab) 40 mg AC BREAKFAST PO Last administered on 07/27/18 07:49; Admin Dose 40 MG; Start 07/19/18 at 07:00 Polyethylene Glycol (Miralax) 17 gm DAILY PO Last administered on 07/26/18 08:12; Admin Dose 17 GM; Start 07/19/18 at 09:00 Rivaroxaban (Xarelto) 15 mg WITH DINNER PO Last administered on 07/18/18 20:02; Admin Dose 15 MG; Start 07/18/18 at 18:00; Status Hold Sucralfate (Carafate) 1 gm AC MEALS AND BEDTIME PO Last administered on 11:47; Admin Dose 1 GM; Start 07/18/18 at 21:00 Piperacillin Sod/ Tazobactam Sod 100 ml @ 200 mls/hr Q8 IVPB Last administered on 07/27/18 06:05; Admin Dose 200 MLS/HR; Start 07/18/18 at 22:00 Insulin Aspart (Novolog Insulin Pen) NOVOLOG *MILD* ALGORITHM WITH MEALS BEDTIME SC Last administered on 07/25/18 17:33; Admin Dose 1 UNIT; Start 07/19/18 at 07:55 Miscellaneous Information 1 ea NOTE XX ; Start 07/19/18 at 04:00 Glucose (Glutose) 15 gm Q15M PRN PO DECREASED GLUCOSE; Start 07/19/18 at 04:00 Glucose (Glutose) 22.5 gm Q15M PRN PO DECREASED GLUCOSE; Start 07/19/18 at 04:00 Dextrose (D50w Syringe) 25 ml Q15M PRN IV DECREASED GLUCOSE; Start 07/19/18 at 04:00 Dextrose (D50w Syringe) 50 ml Q15M PRN IV DECREASED GLUCOSE; Start 07/19/18 at 04:00 Glucagon (Glucagen) 1 mg Q15M PRN IM DECREASED GLUCOSE; Start 07/19/18 at 04:00 Glucose (Glutose) 15 gm Q15M PRN BUCCAL DECREASED GLUCOSE; Start 07/19/18 at 04:00 Vancomycin HCl (Vanco Iv Per Pharmacy) VANCOMYCIN PER PHARMACY PER PROTOCOL XX ; Start 07/20/18 at 14:00 Albuterol/ Ipratropium (Duoneb) 3 ml Q4HWA RESP THERAPY HHN Last administered on 07/27/18at 08:54; Admin Dose 3 ML; Start 07/21/18 at 17:00 Vancomycin HCl 250 ml @ 125 mls/hr Q36H IVPB Last administered on 07/27/18at 01:23; Admin Dose 125 MLS/HR; Start 07/22/18 at 12:00 Insulin Aspart (Novolog Insulin Pen) 9 unit WITH MEALS SC Last administered on 07/27/18at 11:59; Admin Dose 9 UNIT; Start 07/24/18 at 17:55 Insulin Glargine (Lantus) 24 units DAILY@2000 SC Last administered on 07/26/18at 20:55; Admin Dose 24 UNITS; Start 07/24/18 at 20:00 JUANIS FINN NP Jul 27, 2018 13:05
[2018-07-27] MEDS: INSULIN GLARGINE [LANTus] (100 UNITS/ML) SYG SC SCH (20:30)
[2018-07-28] VITALS: PULSE 77; RESP 17
[2018-07-28 00:02] VITALS: PULSE 73
== END 2018-07-28 00:08 | DRG 207 ==
LOC: E/R 14:27 → TEL 16:47
PROVIDERS: ADMIT Internal Medicine; ATTEND Internal Medicine
PROC: 5A1955Z Respiratory Ventilation, Greater than 96 Consecutive Hours (ICD-10-PCS; 2018-07-18)
PROC: 0BC38ZZ Extirpation of Matter from Right Main Bronchus, Via Natural or Artificial Opening Endoscopic (ICD-10-PCS; principal; 2018-07-20)
PROC: 0W993ZZ Drainage of Right Pleural Cavity, Percutaneous Approach (ICD-10-PCS; 2018-07-24)
PROC: 0BJ08ZZ Inspection of Tracheobronchial Tree, Via Natural or Artificial Opening Endoscopic (ICD-10-PCS; 2018-07-25)
DX: T17.590A Other foreign object in bronchus causing asphyxiation, initial encounter (principal); J18.9 Pneumonia, unspecified organism; I13.0 Hypertensive heart and chronic kidney disease with heart failure and stage 1 through stage 4 chronic kidney disease, or unspecified chronic kidney disease; I50.32 Chronic diastolic (congestive) heart failure; I42.7 Cardiomyopathy due to drug and external agent; J96.11 Chronic respiratory failure with hypoxia; J98.11 Atelectasis; Z99.11 Dependence on respirator [ventilator] status; D63.1 Anemia in chronic kidney disease; E11.22 Type 2 diabetes mellitus with diabetic chronic kidney disease; E66.01 Morbid (severe) obesity due to excess calories; N18.3 Chronic kidney disease, stage 3 (moderate); I48.91 Unspecified atrial fibrillation; N48.9 Disorder of penis, unspecified; R13.10 Dysphagia, unspecified; X58.XXXA Exposure to other specified factors, initial encounter; Z93.0 Tracheostomy status; Z93.1 Gastrostomy status; Z87.891 Personal history of nicotine dependence; Z79.4 Long term (current) use of insulin; Z79.01 Long term (current) use of anticoagulants; Z68.33 Body mass index [BMI] 33.0-33.9, adult
CPT/HCPCS: 36415; 36600; 71045; 71250; 76604; 76942; 80048; 80202; 82270; 82565; 82728; 82803; 82962; 83540; 83605; 83615; 84157; 84484; 84520; 85025; 85049; 85610; 85670; 85730; 87081; 87400; 88104; 88107; 88305; 89051; 93005; 94002; 94003; 94640; 94667; 94668; 94799; 96374; 96375; J0692; J1815; J2060; J2270; J2543; J3370; J7030

== ENCOUNTER 2018-08-01 08:34 | Inpatient (IN) | payer MEDICARE, MEDICAID ==
[~2018-08-01] VITALS: Ht 170.2 cm; Wt 111.1 kg
[~2018-08-01 08:34] MED LIST changes: +ACET-141 PO; +ASC500 PO; -CHLO118L3 TOP; +CHLO473M4 MM; -CRAN450C PO; +CRAN450T7 PO; +DIGO250T PO; -DIGO250T6 PO; -FURO40TA4 PO; +INSU100I33 SC; -LEVO500T48 PO; -LISI-313 PO; +LORA1TAB PO; +MULT-105 PO; -MULT1TAB59 PO; +NOVO3I SC; -SUCR1TAB35 PO; +SUCR1TAB56 PO; -TRAM50TA2 PO
[2018-08-02] MEDS: SOD CHLORIDE 0.9% 1,000 ML IV SCH
[2018-08-02 22:15] VITALS: RESP 25
[2018-08-02 22:24] VITALS: PULSE 90
[2018-08-02 23:11] VITALS: BP_SYST 121; BP_SYST 189; BP_DIAS 83; BP_DIAS 84; PULSE 79; PULSE 87; RESP 24
[2018-08-02 23:20] VITALS: RESP 16
[2018-08-02] MEDS ORDERED: DEXTROSE 50% 50 ML SYRINGE IV PRN ×2 (23:45)
[2018-08-02] MEDS ORDERED: GLUCAGON 1 MG INJ IM PRN (23:45)
[2018-08-02] MEDS ORDERED: GLUCOSE GEL 15 GRAM TUBE PO PRN ×2 (23:45)
[2018-08-02] MEDS ORDERED: GLUCOSE GEL 15 GRAM TUBE BUCCAL PRN (23:45)
[2018-08-03] VITALS (22 sets, daily range): BP systolic 124–150; BP diastolic 58–67; PULSE 74–89; RESP 14–22; Ht 170.2 cm; Wt 111.1 kg
[2018-08-03] MEDS ORDERED: ALBUTEROL 0.083% (NEB) 2.5 MG/3 ML AMP NEB PRN
[2018-08-03] MEDS ORDERED: NACL 0.9% 3 ML SYG IV SCH
[2018-08-03] MEDS ORDERED: ONDANSETRON 4 MG INJ IV PRN
[2018-08-03] MEDS ORDERED: NITROGLYCERIN (SL) 0.4 MG TAB SL PRN
[2018-08-03] MEDS ORDERED: BISACODYL (EC) 5 MG TAB PO PRN
[2018-08-03] MEDS ORDERED: DOCUSATE SODIUM 100 MG CAP PO PRN
[2018-08-03] MEDS ORDERED: LORAZEPAM 1 MG TAB PO PRN
--- NOTE | 2018-08-03 00:02 | HP ---
Date/Time of Note Date/Time of Note DATE: 08/02/18 TIME: 23:48 Assessment/Plan VTE Prophylaxis Pharmacological prophylaxis: heparin Assessment/Plan Hospital Course This is a 68-year-old male being admitted to the telemetry floor for: #1 acute on chronic hypoxemic and hypercarbic respiratory failure: Patient is currently on ventilatory support. Continue vent management as per pulmonary. ABG in the a.m. #2 Right pulmonary opacification plus infiltrates: Suspicion likely for large loculated thick pleural effusion, loculated empyema. Patient is currently on broad-spectrum antibiotics of Zyvox, fluconazole We will continue antibiotics at the current time. Will consult ID. CT surgery has been consulted by pulmonary medicine in regards to possible surgical intervention with a thoracotomy. Will repeat a chest x-ray in the a.m. ultrasound of the chest. hold amikacin given change in kidney function #3 paroxysmal atrial fibrillation: Currently in sinus rhythm. Continue to monitor. Will hold Xarelto at the current time given possibility for surgical intervention. #4 anemia of chronic disease: Patient has a history of heme positive stool. Continue to monitor #5 Chronic kidney disease stage III: Last creatinine 2.13, we will check repeat renal function. Consult nephrology Dr. Raya. Patient is currently on amikacin but i am holding at the current time. We will need to monitor this closely. #6 diabetes mellitus: Check hemoglobin A1c, given that the patient may have a surgical intervention tomorrow we will keep the patient n.p.o. after midnight. Insulin sliding scale every 4 hours. #7 diastolic CHF: Patient currently euvolemic, resume home meds #8 questionable liver cirrhosis: Chest CT shows possible liver cirrhosis. Will check hepatitis serologies. Check liver ultrasound. #9 bilateral lower extremity edema: We will give the patient Lasix 40 mg IV daily. Recent echo shows ejection fraction of approximately 55% with grade 1 diastolic dysfunction. Also could be secondary to underlying cirrhosis. #10 DVT GI prophylaxis: SCDs, Protonix Further treatment strategy will be implemented as per the clinical course HPI/ROS Admit Date/Time Admit Date/Time Aug 02, 2018 at 22:00 Hx of Present Illness Chief complaint: Transfer from [place] for shortness of breath, lung collapse This is a 68-year-old male with a long-standing history of tracheostomy with a recent admission to [facility] for acute hypoxemia. Patient had bronchoscopies as well as an unsuccessful attempt at right thoracentesis with only 5 mL's of fluid removed. This had been attempted again however fluid was too thick. Patient also was noted to have pulmonary investigations and infiltrates and was being treated with antibiotics by infectious disease. He is currently on mechanical ventilatory support. He was transferred to [facility] to have CT surgery evaluation for likely surgical intervention given his history of lung collapse and likely loculated empyema. Patient is currently awake he is able to communicate minimally with a tracheostomy. He denies any symptoms of shortness of breath or any pain. Allergies: Meropenem Medications: See JUN ROS Const: As per HPI Eyes : No pain discharge or redness or change in visual acuity ENT: No pain, sore throat, congestion, congestion, dysphagia or discharge Respiratory: As per HPI Cardiovascular: No chest pain, palpitation, PND, or edema GI : no change in appetite, abdominal pain, nausea, vomiting, diarrhea, constipation, or change in the color his stool Genitourinary: No dysuria, hematuria, flank pain , discharge or CVA tenderness Musculoskeletal: No joint pain, back pain, neck pain, restricted range of motion in neck or joints Skin: No rash, bruising or hives Neuro: No headache, dizziness, syncope, seizure, focal weakness Endocrine: No polyuria, polydipsia, temperature intolerance Psych: No hallucination, depression, anxiety or suicidal ideation PMH/Family/Social Past Medical History 1. Chronic respiratory failure with hypoxia. 2. Tracheostomy. 3. Diabetes mellitus. 4. Chronic renal disease stage3 5. Cardiomyopathy. 6. Morbid obesity. 7. Atrial fibrillation. 8. COPD 9. Lung collapse Medications Current Medications Sodium Chloride 1,000 ml @ 80 mls/hr [id number] IV ; Start 08/02/18 at 23:35 IV Flush (NS 3 ml) 3 ml PER PROTOCOL IV ; Start 08/03/18 at 00:00 Ondansetron HCl (Zofran Inj) 4 mg Q6H PRN IV NAUSEA/VOMITING; Start 08/03/18 at 00:00 Nitroglycerin (Nitroglycerin (Sl Tab) 0.4 Mg) 1 tab Q5M PRN SL .CHEST PAIN; Start 08/03/18 at 00:00 Acetaminophen (Tylenol Tab) 650 mg Q6H PRN PO .PAIN 1-3 OR TEMP; Start 08/03/18 at 00:00 Morphine Sulfate (morphine) 2 mg Q4H PRN IV .PAIN 7-10; Start 08/03/18 at 00:00 Docusate Sodium (Colace) 100 mg Q12H PRN PO .CONSTIPATION; Start 08/03/18 at 00:00 Bisacodyl (Dulcolax) 5 mg DAILY PRN PO .CONSTIPATION; Start 08/03/18 at 00:00 Ascorbic Acid (Vitamin C) 500 mg DAILY PO ; Start 08/03/18 at 09:00 Chlorhexidine Gluconate (Peridex) 15 ml Q12H MM ; Start 08/03/18 at 00:00 Digoxin (Digoxin) 0.25 mg DAILY PO ; Start 08/03/18 at 09:00 Ferrous Sulfate (Ferrous Sulfate (Ec)) 325 mg DAILY PO ; Start 08/03/18 at 09:00 Lorazepam (Ativan) 1 mg Q6 PRN PO ANXIETY; Start 08/03/18 at 00:00 Pantoprazole (Protonix Tab) 40 mg AC BREAKFAST PO ; Start 08/03/18 at 07:25 Sucralfate (Carafate) 1 gm AC MEALS AND BEDTIME PO ; Start 08/03/18 at 07:25 Miscellaneous Information 450 mg DAILY PO ; Start 08/03/18 at 09:00; Status UNV Miscellaneous Information (* Miscellaneous Pharmacy Order) Discontinue current oral sulfonylur... ONCE ONCE XX ; Start 08/03/18 at 00:00; Stop 08/03/18 at 00:01 Diagnostic Test (Pha) (Accu-Chek) 1 ea 02 XX ; Start 08/03/18 at 02:00 Miscellaneous Information (* Miscellaneous Pharmacy Order) HYPOGLYCEMIA PROTOCOL w... ONCE ONCE XX ; Start 08/03/18 at 00:00; Stop 08/03/18 at 00:01 Insulin Aspart (Novolog Insulin Pen) NOVOLOG *MILD* ALGORI... Q4 SC ; Start 08/03/18 at 01:00 Miscellaneous Information (* Miscellaneous Pharmacy Order) Discontinue all previ... ONCE ONCE XX ; Start 08/03/18 at 00:00; Stop 08/03/18 at 00:01 Albuterol (Proventil 0.083% (Neb)) 2.5 mg Q4H RESP THERAPY PRN NEB TR ACHEOSTOMY; Start 08/02/18 at 23:45 Multivitamins/ Minerals (Theragran-M) 1 tab DAILY PO ; Start 08/03/18 at 09:00 Miscellaneous Information 1 ea NOTE XX ; Start 08/02/18 at 23:45 Glucose (Glutose) 15 gm Q15M PRN PO DECREASED GLUCOSE; Start 08/02/18 at 23:45 Glucose (Glutose) 22.5 gm Q15M PRN PO DECREASED GLUCOSE; Start 08/02/18 at 23:45 Dextrose (D50w Syringe) 25 ml Q15M PRN IV DECREASED GLUCOSE; Start 08/02/18 at 23:45 Dextrose (D50w Syringe) 50 ml Q15M PRN IV DECREASED GLUCOSE; Start 08/02/18 at 23:45 Glucagon (Glucagen) 1 mg Q15M PRN IM DECREASED GLUCOSE; Start 08/02/18 at 23:45 Glucose (Glutose) 15 gm Q15M PRN BUCCAL DECREASED GLUCOSE; Start 08/02/18 at 23:45 Coded Allergies: meropenem (Verified Allergy, Intermediate, skin rashes, 08/01/18) Past Surgical History Tracheostomy, multiple bronchoscopy, thoracentesis Family History Significant Family History: no pertinent family hx Exam/Review of Systems Vital Signs Vitals Vital Signs Date Temp Pulse Resp B/P (MAP) Pulse Ox O2 O2 Flow FiO2 Time Delivery Rate 08/02/18 98.2 79 24 121/83 100 Mechanical 23:11 (96) Ventilator Exam Exam General: Patient is currently lying in bed in no acute distress, awake and aler t. Trach to vent. HEENT: Atraumatic, normocephalic. The pupils are equal, round and reactive. Extraocular motor are intact, trach to vent Neck: Supple with full range of motion. No rigidity or meningismus Chest: Nontender Lungs: Clear to auscultation bilaterally no crackles rales or wheezing Heart: Normal S1-S2, Regular rhythm and rate. No murmur, S3, or S4 Abdomen: Soft , obese, questionable ascites nontender, nondistended , bowel sounds are present. No guarding no rebound tenderness , No masses or organ omegaly. No costovertebral temporal angle mass Extremities: 2+ bilateral lower extremity edema Neurologic: Normal mental status, speech normal, cranial nerves II through XII are intact, motor and sensory are intact, no focal weakness Additional Comments PROCEDURE: CT Chest Without Intravenous Contrast CLINICAL INDICATION: Pulmonary infiltrate. TECHNIQUE: Axial computed tomography images of the chest without intravenous contrast. Sagittal and coronal reformatted images were created and reviewed. CTDIvol (mGy) = 16.7; total DLP (mGy-cm) = [address] exam was performed using one or more of the following dose reduction techniques: automated exposure control, adjustment of the mA and/or kV according to patient size, and/or use of iterative reconstruction technique. DICOM images are available. COMPARISON: No relevant prior studies available. FINDINGS: LUNGS: Numerous centrilobular nodules and peribronchial opacities in the left upper lobe, consistent with a cellular bronchiolitis and/or bronchopneumonia. PLEURAL SPACE: Large right pleural effusion with complete to near complete atelectasis of the right upper and lower lobes. Small to moderate left pleural effusion with posterior dependent atelectasis. HEART: Normal. No cardiomegaly. No pericardial effusion. THYROID: Enlarged heterogeneous thyroid gland, consistent with multinodular goiter. BONES/JOINTS: No suspicious bone lesion. SOFT TISSUES: Diffuse anasarca. VASCULATURE: Normal. No thoracic aortic aneurysm. LYMPH NODES: Multiple enlarged mediastinal lymph nodes measuring up to 24 x 16 mm. LIVER: Liver cirrhosis. INTRAPERITONEAL SPACE: Small abdominal ascites. TUBES, LINES AND DEVICES: Tracheostomy tube is in place. IMPRESSION: Large right pleural effusion with complete to near complete atelectasis of the right upper and lower lobes. Small to moderate left pleural effusion with posterior dependent atelectasis. Numerous centrilobular nodules and peribronchial opacities in the left upper lobe, consistent with a cellular bronchiolitis and/or bronchopneumonia. Multi-compartmental mediastinal lymphadenopathy. Enlarged heterogeneous thyroid gland, consistent with multinodular goiter. Liver cirrhosis. Small abdominal ascites. RPTAT: EE .Jakob Banks MD, Date Time Electronically viewed and signed by .Jakob Banks MD, on 07/28/2018 18:14 .C/ CC: MARILU MEEK MD [id number] JESSICA BAUMANN Aug 03, 2018 00:00
[2018-08-03] MEDS ORDERED: FLUC100T39 PO (00:49)
[2018-08-03] MEDS ORDERED: LINA5TAB PO (00:49)
[2018-08-03] MEDS ORDERED: [UNRECOGNIZED DRUG - OTHER] IV (00:49)
[2018-08-03] MEDS: INSULIN ASPART [NOVOLOG] 3 ML PEN SC SCH ×7 (01:00→21:00)
[2018-08-03] MEDS ORDERED: NYST15CR28 TOP (01:06)
[2018-08-03] MEDS ORDERED: MUCO4 NEB (01:06)
[2018-08-03] MEDS ORDERED: LORA10CA9 PO (01:06)
[2018-08-03] MEDS ORDERED: SOD62.5V IV (01:06)
[2018-08-03] MEDS ORDERED: METO25TA4 PO (01:06)
[2018-08-03] MEDS ORDERED: LINE600T PO (01:06)
[2018-08-03] MEDS ORDERED: AMLO2.5T78 PO (01:06)
[2018-08-03] MEDS: ACCU-CHEK XX SCH (02:38)
[2018-08-03] MEDS ORDERED: morphine 2 MG INJ IV PRN (04:30)
[2018-08-03] MEDS: morphine 2 MG INJ IV PRN (04:35)
[2018-08-03] MEDS: SUCRALFATE 1 GM TAB PO SCH ×4 (07:25→22:28)
[2018-08-03] MEDS ORDERED: FUROSEMIDE 40 MG INJ IV ONE (08:00)
[2018-08-03] MEDS: AMLODIPINE 5 MG TAB PO SCH (08:41)
[2018-08-03] MEDS: DIGOXIN 0.25 MG TAB PO SCH (08:42)
[2018-08-03] MEDS ORDERED: NON-FORMULARY/PATIENT OWN MED (Cranberry Fruit (Cranberry) 450 MG) PO SCH (09:00)
[2018-08-03] MEDS: PANTOPRAZOLE (EC) 40 MG TAB PO SCH (11:10)
[2018-08-03] MEDS: FERROUS SULFATE (EC) 325 MG TAB PO SCH (11:10)
[2018-08-03] MEDS: MULTIVITAMINS/MINERALS TAB PO SCH (11:11)
[2018-08-03] MEDS: ASCORBIC ACID 500 MG TAB PO SCH (11:12)
[2018-08-03] MEDS ORDERED: AMIKACIN IV PER PHARMACY XX SCH (11:30)
--- NOTE | 2018-08-03 12:45 | CONS ---
DATE OF ADMISSION: 08/02/2018 DATE OF CONSULTATION: 08/03/2018 TYPE OF CONSULTATION: Nephrology. REASON FOR CONSULTATION: Acute kidney injury, chronic kidney disease. PHYSICIAN REQUESTING CONSULT: Abhijeet Baumann MD HISTORY OF PRESENT ILLNESS: This is a 68-year-old male with a past medical history of chronic respir atory failure status post trach, history of diabetes, CKD stage III, cardiomyopathy, , afib, [employer] who was transferred from [facility] to [facility] for evaluation o f loculated empyema. The patient was a previous resident of [facility], was noted to have a loculated fluid effusion. The patient, after attempted bronchoscopy and post G-tube without i mprovement of loculated fluid was subsequently transferred to [facility] for surgic al evaluation. In terms of patient's renal history, the patient has underlying disease with baseline creatinine arou nd 2.3 mg/dL. The patient's renal function is currently at baseline. The patient himself denies any hemoptysis, hematemesis, or hematochezia. PAST MEDICAL HISTORY: See above, history of chronic respiratory failure, history of CKD, history of diabetes, history of cardiomyopathy, morbid obesity, afib, COPD. PAST SURGICAL HISTORY: Status post trach, status post bronchoscopy, status post PEG. FAMILY HISTORY: No family history of TB. SOCIAL HISTORY: Does not drink or smoke. MEDICATIONS: Have been reviewed. REVIEW OF SYSTEMS: A 14-point review of systems was conducted. Pertinent positives stated in HPI, o therwise negative. PHYSICAL EXAMINATION: VITAL SIGNS: Blood pressure 150-67, respirations 18, pulse 80, temperature 98.6. HEENT: Head is normocephalic. NECK: Supple. HEART: Regular rate. LUNGS: Show diminished breath sounds at base. ABDOMEN: Soft, nontender to palpation without rebound or guarding. EXTREMITIES: Negative for clubbing, cyanosis, no edema. DERMATOLOGIC: No rashes. MUSCULOSKELETAL: No joint effusion. NEUROLOGIC: No change in exam. LABORATORY DATA: Has been reviewed. ASSESSMENT AND PLAN: A 68-year-old male who presents with problem: 1. Chronic kidney disease with previous baseline creatinine around 2.2 to 2.3 mg/dL. The patient's renal function currently appears to be near or at baseline. Recommendation at this point will be to check UA with microanalysis. Will check urine electrolytes. Would otherwise continue current treatm ent plan, supportive care, renally dose all meds, avoid nephrotoxins. 2. Mineral bone disorder, monitor calcium and phosphorus levels. 3. History of diastolic heart failure. The patient currently is on IV fluids and monitor closely. Consider de-escalation. 4. Ventilator dependent respiratory failure. Vent settings and ABG was reviewed. Continue to monit or. Follow up with pulmonary. 5. Right pulmonary opacification plus infiltrates, possible loculated empyema. The patient is curre ntly on broad spectrum antibiotics. CT surgery consult has been placed for evaluation. Possible tho racotomy. Continue to monitor. 6. Paroxysmal atrial fibrillation, currently in sinus rhythm. Continue medical management. Anticoa gulation has been held. 7. Diabetes. Continue current insulin regimen. 8. Sepsis, questionable history of liver cirrhosis. Continue to monitor. 9. Lower extremity edema, etiology may be secondary to congestive heart failure, cirrhosis. The pat ient is receiving diuretic therapy. Would discontinue IV fluids once the patient has been started on a diet. Thank you, Dr. Baumann, for this interesting consult. It will be a pleasure to follow patient with y isatu throughout the hospital course. Dictated By: LORY KAY DO NR/NTS Conf#: [id number] DID#: [id number] CC: VARSHA PEARSON MD; ABHIJEET BAUMANN MD;*EndCC*
--- NOTE | 2018-08-03 13:11 | PN ---
Date/Time of Note Date/Time of Note DATE: 08/03/18 TIME: 13:10 Assessment/Plan VTE Prophylaxis Pharmacological prophylaxis: LMWH Lines/Catheters IV Catheter Type (from [facility]): Mid Line Urinary Cath still in place: No Assessment/Plan Hospital Course This is a 68-year-old male with a past medical history of chronic respiratory failure status post trach, who was transferred from [facility] to [facility] for evaluation of loculated empyema ad possible VATS. The patient was a previous resident of [facility], was noted to have a loculated fluid effusion. The patient, after attempted bronchoscopy and post chest-tube without improvement of loculated fluid was subsequently transferred to [facility] for surgical evaluation. #1 acute on chronic hypoxemic and hypercarbic respiratory failure: -Patient is on chronic ventilatory support. -Continue vent management as per pulmonary. #2 Right pulmonary opacification plus infiltrates: -Suspicion likely for large loculated thick pleural effusion, loculated empyema s/p failed bronchoscopy and chest tube -Patient is currently on broad-spectrum antibiotics of Zyvox, fluconazole We will continue antibiotics at the current time. ID consulted -CT surgery has been consulted by pulmonary medicine in regards to possible surgical intervention with a thoracotomy. #3 Paroxysmal atrial fibrillation: -Currently in sinus rhythm. Continue to monitor. -Xarelto on hold at the current time given possibility for surgical intervention. #4 anemia of chronic disease: Stable Continue to monitor #5 Chronic kidney disease stage III r/o FROILAN: -last Cr per notes 2.11, amikacin on hold -nephro consulted, f/u trend and recommendations #6 diabetes mellitus: -no surgery planned, resume diet and pev regimen, -note that patient is being fed orally #7 diastolic CHF, chronic with bilateral lower extremity edema: -continue lasix -may also be related to anasarca from #8 #8 Hepatic cirrhosis: -Chest CT shows possible liver cirrhosis confirmed on USS. f/u hepatitis serologies. Dispo: -spoke with CTS, no surgery planned for today and surgery cannot be done until early next week -on his assessment though, patient may not require open surgery , but may be able to do well with pigtail and abx, he wants pulmonary to reassess (he was unable to asses prior to transfer as he had no [place] priviledges) -so for now, continue abx, and supportive care, advance diet and await pulmonary's recommendations -Continue to hold Xarelto, but start Lovenox at anticoagulant dosing since patient is likely to get some kind of procedure #10 DVT GI prophylaxis: SCDs, Protonix Further treatment strategy will be implemented as per the clinical course Result Diagram: 08/03/18 0726 08/03/18 0726 Results 24hrs Laboratory Tests Test 08/03/18 00:25 08/03/18 02:34 08/03/18 04:38 08/03/18 07:21 White Blood Count 18.5 H Red Blood Count 2.97 L Hemoglobin 7.3 L Hematocrit 24.1 L Mean Corpuscular 81.1 L Volume Mean Corpuscular 24.6 L Hemoglobin Mean Corpuscular 30.3 L Hemoglobin Concent Red Cell 15.9 H Distribution Width Platelet Count 306 Mean Platelet Volume 9.3 Immature 1.500 H Granulocytes % Neutrophils % 83.2 H Lymphocytes % 5.4 L Monocytes % 8.3 Eosinophils % 1.2 Basophils % 0.4 Nucleated Red Blood 0.0 Cells % Immature 0.270 H Granulocytes # Neutrophils # 15.4 H Lymphocytes # 1.0 Monocytes # 1.5 H Eosinophils # 0.2 Basophils # 0.1 Nucleated Red Blood 0.0 Cells # Sodium Level 134 L Potassium Level 4.9 Chloride Level 104 Carbon Dioxide Level 24 Anion Gap 6 Blood Urea Nitrogen 28 H Creatinine 2.27 H Est Glomerular 29 L Filtrat Rate mL/min Glucose Level 137 Hemoglobin A1c 8.6 H Calcium Level 8.4 Total Bilirubin 0.1 L Direct Bilirubin 0.00 Indirect Bilirubin 0.1 Aspartate Amino 19 Transf (AST/SGOT) Alanine 10 L Aminotransferase (AL T/SGPT) Alkaline Phosphatase 218 H Total Protein 6.1 Albumin 2.3 L Globulin 3.80 H Albumin/Globulin 0.60 Ratio Bedside Glucose 137 122 B-Type Natriuretic 4150 H Peptide Test 08/03/18 07:26 08/03/18 08:39 White Blood Count 19.5 H Red Blood Count 3.09 L Hemoglobin 7.6 L Hematocrit 25.1 L Mean Corpuscular 81.2 L Volume Mean Corpuscular 24.6 L Hemoglobin Mean Corpuscular 30.3 L Hemoglobin Concent Red Cell 16.2 H Distribution Width Platelet Count 318 Mean Platelet Volume 9.3 Immature 1.300 H Granulocytes % Neutrophils % 81.3 H Lymphocytes % 7.4 L Monocytes % 8.5 Eosinophils % 1.2 Basophils % 0.3 Nucleated Red Blood 0.0 Cells % Immature 0.250 H Granulocytes # Neutrophils # 15.9 H Lymphocytes # 1.4 Monocytes # 1.7 H Eosinophils # 0.2 Basophils # 0.1 Nucleated Red Blood 0.0 Cells # Sodium Level 137 Potassium Level 4.9 Chloride Level 108 Carbon Dioxide Level 24 Anion Gap 5 Blood Urea Nitrogen 26 H Creatinine 2.26 H Est Glomerular 29 L Filtrat Rate mL/min Glucose Level 99 Calcium Level 8.8 Magnesium Level 2.1 Total Bilirubin 0.0 L Direct Bilirubin 0.00 Indirect Bilirubin 0.0 Aspartate Amino 19 Transf (AST/SGOT) Alanine 9 L Aminotransferase (AL T/SGPT) Alkaline Phosphatase 233 H Total Protein 6.2 Albumin 2.3 L Globulin 3.90 H Albumin/Globulin 0.58 Ratio Hepatitis A Antibody NEGATIVE Total Hepatitis B Surface NEGATIVE Antigen Hepatitis B Surface NEGATIVE Antibody Hepatitis B Core NEGATIVE Total Antibody Hepatitis C Antibody NEGATIVE Bedside Glucose 101 Subjective 24 Hr Interval Summary Free Text/Dictation no new issues Exam/Review of Systems Exam Vitals Vital Signs Date Temp Pulse Resp B/P (MAP) Pulse Ox O2 O2 Flow FiO2 Time Delivery Rate 08/03/18 74 12:38 08/03/18 97.4 16 147/66 100 Mechanical 12:09 (93) Ventilator 08/03/18 40 11:45 Intake and Output 08/02/18 08/02/18 08/03/18 1515:00 23:00 07:00 IntakeIntake Total 50 ml BalanceBalance 50 ml Exam General: Patient is currently lying in bed in no acute distress, Trach to vent. HEENT: Atraumatic, normocephalic. Neck: trach to vent Lungs: diminshed, coarse BS Heart: Normal S1-S2, Regular rhythm and rate. No murmur, S3, or S4 Abdomen: Soft , obese, nontender, nondistended , bowel sounds are present. Extremities: 2+ bilateral lower extremity edema Neurologic: lethargic Results Results 24hrs Laboratory Tests Test 08/03/18 00:25 08/03/18 02:34 08/03/18 04:38 08/03/18 07:21 White Blood Count 18.5 H Red Blood Count 2.97 L Hemoglobin 7.3 L Hematocrit 24.1 L Mean Corpuscular 81.1 L Volume Mean Corpuscular 24.6 L Hemoglobin Mean Corpuscular 30.3 L Hemoglobin Concent Red Cell 15.9 H Distribution Width Platelet Count 306 Mean Platelet Volume 9.3 Immature 1.500 H Granulocytes % Neutrophils % 83.2 H Lymphocytes % 5.4 L Monocytes % 8.3 Eosinophils % 1.2 Basophils % 0.4 Nucleated Red Blood 0.0 Cells % Immature 0.270 H Granulocytes # Neutrophils # 15.4 H Lymphocytes # 1.0 Monocytes # 1.5 H Eosinophils # 0.2 Basophils # 0.1 Nucleated Red Blood 0.0 Cells # Sodium Level 134 L Potassium Level 4.9 Chloride Level 104 Carbon Dioxide Level 24 Anion Gap 6 Blood Urea Nitrogen 28 H Creatinine 2.27 H Est Glomerular 29 L Filtrat Rate mL/min Glucose Level 137 Hemoglobin A1c 8.6 H Calcium Level 8.4 Total Bilirubin 0.1 L Direct Bilirubin 0.00 Indirect Bilirubin 0.1 Aspartate Amino 19 Transf (AST/SGOT) Alanine 10 L Aminotransferase (AL T/SGPT) Alkaline Phosphatase 218 H Total Protein 6.1 Albumin 2.3 L Globulin 3.80 H Albumin/Globulin 0.60 Ratio Bedside Glucose 137 122 B-Type Natriuretic 4150 H Peptide Test 08/03/18 07:26 08/03/18 08:39 White Blood Count 19.5 H Red Blood Count 3.09 L Hemoglobin 7.6 L Hematocrit 25.1 L Mean Corpuscular 81.2 L Volume Mean Corpuscular 24.6 L Hemoglobin Mean Corpuscular 30.3 L Hemoglobin Concent Red Cell 16.2 H Distribution Width Platelet Count 318 Mean Platelet Volume 9.3 Immature 1.300 H Granulocytes % Neutrophils % 81.3 H Lymphocytes % 7.4 L Monocytes % 8.5 Eosinophils % 1.2 Basophils % 0.3 Nucleated Red Blood 0.0 Cells % Immature 0.250 H Granulocytes # Neutrophils # 15.9 H Lymphocytes # 1.4 Monocytes # 1.7 H Eosinophils # 0.2 Basophils # 0.1 Nucleated Red Blood 0.0 Cells # Sodium Level 137 Potassium Level 4.9 Chloride Level 108 Carbon Dioxide Level 24 Anion Gap 5 Blood Urea Nitrogen 26 H Creatinine 2.26 H Est Glomerular 29 L Filtrat Rate mL/min Glucose Level 99 Calcium Level 8.8 Magnesium Level 2.1 Total Bilirubin 0.0 L Direct Bilirubin 0.00 Indirect Bilirubin 0.0 Aspartate Amino 19 Transf (AST/SGOT) Alanine 9 L Aminotransferase (AL T/SGPT) Alkaline Phosphatase 233 H Total Protein 6.2 Albumin 2.3 L Globulin 3.90 H Albumin/Globulin 0.58 Ratio Hepatitis A Antibody NEGATIVE Total Hepatitis B Surface NEGATIVE Antigen Hepatitis B Surface NEGATIVE Antibody Hepatitis B Core NEGATIVE Total Antibody Hepatitis C Antibody NEGATIVE Bedside Glucose 101 Imaging Imaging PROCEDURE: XR Chest. CLINICAL INDICATION: Respiratory failure TECHNIQUE: An AP view of the chest was obtained. COMPARISON: CHEST 07/30/2018; CHEST 07/28/2018; CHEST 07/25/2018; CHEST 07/24/2018 FINDINGS: The endotracheal tube tip is approximately 5.2 cm above the sahra. There is prominence of the interstitial and central pulmonary vascular markings. There is a small to moderate right pleural effusion which extends along the right upper lobe. There is consolidation of the right upper lobe. There is a small left pleural effusion. No pneumothorax is seen. The cardi omediastinal silhouette is mildly enlarged. Calcifications are seen within the aortic arch. The osseous structures demonstrate senescent changes. IMPRESSION: 1. Findings suggestive of pulmonary vascular congestion with small left and moderate right pleural effusions. The right pleural effusion extends along the upper lobe. No significant interval change. 2. Right upper lobe atelectasis versus pneumonia, mildly increased from prior examination. 3. Mild cardiomegaly and aortic atherosclerosis. 4. Tubes and lines, as described above. RPTAT: HH .Neli Forde MD, Date Time Electronically viewed and signed by .Neli Forde MD, MD on 08/03/2018 09:33 .G/ CC: JESSICA BAUMANN [phone] PROCEDURE: XR Abdomen. CLINICAL INDICATION: Abdominal pain TECHNIQUE: Single frontal view of the abdomen was obtained. COMPARISON: None. FINDINGS: The bowel gas pattern is normal. There is no evidence of obstruction. There are no air-fluid levels. There are no abnormal calcifications overlying the urinary tracts. The soft tissues are unremarkable. The osseous structures are unremarkable. RPTAT: AA IMPRESSION: Unremarkable abdomen radiograph. .Olman Lindquist MD, MD Date Time Electronically viewed and signed by .Olman Lindquist MD, MD on 08/03/2018 06:57 .S/ CC: JESSICA BAUMANN [id number] PROCEDURE: US Abdomen (right upper quadrant). CLINICAL INDICATION: Cirrhosis TECHNIQUE: Multiple real-time longitudinal and transverse images of the right upper quadrant of the abdomen were acquired utilizing a curved array transducer. Images were reviewed on a high-resolution PACS workstation. COMPARISON: CT CHEST 07/28/2018; US ABDOMEN 07/28/2018 FINDINGS: The liver is normal in size and demonstrates normal echogenicity. The liver contour is nodular. No focal intrahepatic mass is identified. The gallbladder was not visualized. No intrahepatic biliary dilatation is seen. The common bile duct measures 7.6 mm in maximal dimension. The portal and hepatic veins are patent demonstrating normal directional flow. The visualized portions of the pancreas are unremarkable with obscuration of the tail of the pancreas. Small free fluid is identified. IMPRESSION: 1. Nodular contour of the liver suggesting cirrhosis. 2. Small volume ascites. 3. Limited evaluation secondary to patient's body habitus and inability of patient to turn. The gallbladder was not visualized. 4. The common bile duct is upper limits of normal in size for patient's age measuring 7.6 mm in diameter. Correlation with LFTs is recommended. RPTAT: HH .Neli Forde MD, MD Date Time Electronically viewed and signed by .Neli Forde MD, MD on 08/03/2018 09:35 .G/ CC: JESSICA BAUMANN [id number] Medications Medication Current Medications Sodium Chloride 1,000 ml @ 40 mls/hr Q24H IV Last administered on 08/02/18at 00:00; Admin Dose 80 MLS/HR; Start 08/02/18 at 23:35 IV Flush (NS 3 ml) 3 ml PER PROTOCOL IV ; Start 08/03/18 at 00:00 Ondansetron HCl (Zofran Inj) 4 mg Q6H PRN IV NAUSEA/VOMITING Last administered on 08/03/18at 03:48; Admin Dose 4 MG; Start 08/03/18 at 00:00 Nitroglycerin (Nitroglycerin (Sl Tab) 0.4 Mg) 1 tab Q5M PRN SL .CHEST PAIN; Start 08/03/18 at 00:00 Acetaminophen (Tylenol Tab) 650 mg Q6H PRN PO .PAIN 1-3 OR TEMP; Start 08/03/18 at 00:00 Morphine Sulfate (morphine) 2 mg Q4H PRN IV .PAIN 7-10 Last administered on 08/03/18at 04:35; Admin Dose 2 MG; Start 08/03/18 at 00:00 Docusate Sodium (Colace) 100 mg Q12H PRN PO .CONSTIPATION; Start 08/03/18 at 00:00 Bisacodyl (Dulcolax) 5 mg DAILY PRN PO .CONSTIPATION; Start 08/03/18 at 00:00 Ascorbic Acid (Vitamin C) 500 mg DAILY PO ; Start 08/03/18 at 09:00 Chlorhexidine Gluconate (Peridex) 15 ml Q12H MM ; Start 08/03/18 at 00:00 Digoxin (Digoxin) 0.25 mg DAILY PO Last administered on 08/03/18at 08:42; Admin Dose 0.25 MG; Start 08/03/18 at 09:00 Ferrous Sulfate (Ferrous Sulfate (Ec)) 325 mg DAILY PO ; Start 08/03/18 at 09:00 Lorazepam (Ativan) 1 mg Q6 PRN PO ANXIETY; Start 08/03/18 at 00:00 Pantoprazole (Protonix Tab) 40 mg AC BREAKFAST PO ; Start 08/03/18 at 07:25 Sucralfate (Carafate) 1 gm AC MEALS AND BEDTIME PO ; Start 08/03/18 at 07:25 Diagnostic Test (Pha) (Accu-Chek) 1 ea 02 XX Last administered on 08/03/18at 02:38; Admin Dose 1 EA; Start 08/03/18 at 02:00 Insulin Aspart (Novolog Insulin Pen) NOVOLOG *MILD* ALGORI... Q4 SC ; Start 08/03/18 at 01:00 Albuterol (Proventil 0.083% (Neb)) 2.5 mg Q4H RESP THERAPY PRN NEB TRACHEO STOMY; Start 08/02/18 at 23:45 Multivitamins/ Minerals (Theragran-M) 1 tab DAILY PO ; Start 08/03/18 at 09:00 Miscellaneous Information 1 ea NOTE XX ; Start 08/02/18 at 23:45 Glucose (Glutose) 15 gm Q15M PRN PO DECREASED GLUCOSE; Start 08/02/18 at 23:45 Glucose (Glutose) 22.5 gm Q15M PRN PO DECREASED GLUCOSE; Start 08/02/18 at 23:45 Dextrose (D50w Syringe) 25 ml Q15M PRN IV DECREASED GLUCOSE; Start 08/02/18 at 23:45 Dextrose (D50w Syringe) 50 ml Q15M PRN IV DECREASED GLUCOSE; Start 08/02/18 at 23:45 Glucagon (Glucagen) 1 mg Q15M PRN IM DECREASED GLUCOSE; Start 08/02/18 at 23:45 Glucose (Glutose) 15 gm Q15M PRN BUCCAL DECREASED GLUCOSE; Start 08/02/18 at 23:45 Simethicone (Mylicon) 80 mg Q8H PRN PO DISTENSION/GAS/BLOATING Last administered on 08/03/18at 04:34; Admin Dose 80 MG; Start 08/03/18 at 04:30 Acetylcysteine (Mucomyst) 2 ml Q8 NEB ; Start 08/03/18 at 14:00 Amlodipine Besylate (Norvasc) 5 mg DAILY PO Last administered on 08/03/18at 08:41; Admin Dose 5 MG; Start 08/03/18 at 09:00 Fluconazole (Diflucan) 100 mg DAILY PO ; Start 08/03/18 at 09:00 Linezolid (Zyvox) 600 mg BID PO ; Start 08/03/18 at 09:00 Nystatin (Nystatin Cr) 1 applic BID TOP ; Start 08/03/18 at 09:00 Amikacin Sulfate (Amikacin Iv Per Pharmacy) AMIKACIN PER PHARMACY NOTE XX ; Start 08/03/18 at 11:30 Amikacin Sulfate 400 mg/Sodium Chloride 101.6 ml @ 101.6 mls/ hr Q48H IVPB ; Start 08/03/18 at 20:00 EARL KNIGHT Aug 03, 2018 13:11
[2018-08-03] MEDS: SOD CHLORIDE 0.9% 1,000 ML IV SCH (13:30)
[2018-08-03] MEDS: CHLORHEXIDINE GLUCONATE 15 ML UD CUP MM SCH ×2 (13:33)
[2018-08-03] MEDS: NYSTATIN 15 GM CR TOP SCH ×2 (13:34→21:00)
[2018-08-03] MEDS: FLUCONAZOLE 100 MG TAB PO SCH (13:37)
[2018-08-03] MEDS: ZYVOX 600 MG TAB PO SCH ×2 (13:37→22:28)
[2018-08-03] MEDS: ACETYLCYSTEINE 20% 4 ML VIAL NEB SCH (14:00)
--- NOTE | 2018-08-03 14:09 | CONS ---
Assessment/Plan Assessment/Plan Hospital Course (Demo Recall) Transferred from [place] for possible thoracotomy procedure no fevers, looks comfortable. WBC 19.5 H&H 7.6 and 25.1 platelets 318 neutrophils 81.3 BUN 26 creatinine 2.26 Microbiology: Sputum culture growing Serratia and pseudomonas aeruginosa, multidrug-resistant, urine culture grew Annmarie albicans Antimicrobials: Amikacin, Zyvox, fluconazole Indwelling: Trach PEG Physical examination: Well-developed fragile elderly man who is awake in no distress. Head atraumatic normocephalic Neck is supple, tracheostomy present. Chest rise symmetrical breath sounds diminished bases. Heart: S1-S2. Abdomen soft bowel sounds present extremities without cyanosis Assessment: 1. Systemic inflammatory response syndrome with ongoing leukocytosis 2. HCAP with loculated pleural effusion possible empyema 3. Acute on chronic kidney disease 4. Dysphagia 5. Fungal UTI 6. Paroxysmal atrial fibrillation 7. Diabetes Plan: Patient is stable, continue present care and antibiotics await for car diothoracic surgery evaluation Consultation Date/Type/Reason Admit Date/Time Aug 02, 2018 at 22:00 Initial Consult Date Type of Consult id Date/Time of Note DATE: 08/03/18 TIME: 14:09 Exam/Review of Systems Exam Vitals Vital Signs Date Temp Pulse Resp B/P (MAP) Pulse Ox O2 O2 Flow FiO2 Time Delivery Rate 08/03/18 74 12:38 08/03/18 97.4 16 147/66 100 Mechanical 12:09 (93) Ventilator 08/03/18 40 11:45 Intake and Output 08/02/18 08/02/18 08/03/18 1414:59 22:59 06:59 IntakeIntake Total 50 ml BalanceBalance 50 ml Results Result Diagram: 08/03/18 0726 08/03/18 0726 Results 24hrs Laboratory Tests Test 08/03/18 00:25 08/03/18 02:34 08/03/18 04:38 08/03/18 07:21 White Blood Count 18.5 H Red Blood Count 2.97 L Hemoglobin 7.3 L Hematocrit 24.1 L Mean Corpuscular 81.1 L Volume Mean Corpuscular 24.6 L Hemoglobin Mean Corpuscular 30.3 L Hemoglobin Concent Red Cell 15.9 H Distribution Width Platelet Count 306 Mean Platelet Volume 9.3 Immature 1.500 H Granulocytes % Neutrophils % 83.2 H Lymphocytes % 5.4 L Monocytes % 8.3 Eosinophils % 1.2 Basophils % 0.4 Nucleated Red Blood 0.0 Cells % Immature 0.270 H Granulocytes # Neutrophils # 15.4 H Lymphocytes # 1.0 Monocytes # 1.5 H Eosinophils # 0.2 Basophils # 0.1 Nucleated Red Blood 0.0 Cells # Sodium Level 134 L Potassium Level 4.9 Chloride Level 104 Carbon Dioxide Level 24 Anion Gap 6 Blood Urea Nitrogen 28 H Creatinine 2.27 H Est Glomerular 29 L Filtrat Rate mL/min Glucose Level 137 Hemoglobin A1c 8.6 H Calcium Level 8.4 Total Bilirubin 0.1 L Direct Bilirubin 0.00 Indirect Bilirubin 0.1 Aspartate Amino 19 Transf (AST/SGOT) Alanine 10 L Aminotransferase (AL T/SGPT) Alkaline Phosphatase 218 H Total Protein 6.1 Albumin 2.3 L Globulin 3.80 H Albumin/Globulin 0.60 Ratio Bedside Glucose 137 122 B-Type Natriuretic 4150 H Peptide Test 08/03/18 07:26 08/03/18 08:39 08/03/18 13:20 White Blood Count 19.5 H Red Blood Count 3.09 L Hemoglobin 7.6 L Hematocrit 25.1 L Mean Corpuscular 81.2 L Volume Mean Corpuscular 24.6 L Hemoglobin Mean Corpuscular 30.3 L Hemoglobin Concent Red Cell 16.2 H Distribution Width Platelet Count 318 Mean Platelet Volume 9.3 Immature 1.300 H Granulocytes % Neutrophils % 81.3 H Lymphocytes % 7.4 L Monocytes % 8.5 Eosinophils % 1.2 Basophils % 0.3 Nucleated Red Blood 0.0 Cells % Immature 0.250 H Granulocytes # Neutrophils # 15.9 H Lymphocytes # 1.4 Monocytes # 1.7 H Eosinophils # 0.2 Basophils # 0.1 Nucleated Red Blood 0.0 Cells # Sodium Level 137 Potassium Level 4.9 Chloride Level 108 Carbon Dioxide Level 24 Anion Gap 5 Blood Urea Nitrogen 26 H Creatinine 2.26 H Est Glomerular 29 L Filtrat Rate mL/min Glucose Level 99 Calcium Level 8.8 Magnesium Level 2.1 Total Bilirubin 0.0 L Direct Bilirubin 0.00 Indirect Bilirubin 0.0 Aspartate Amino 19 Transf (AST/SGOT) Alanine 9 L Aminotransferase (AL T/SGPT) Alkaline Phosphatase 233 H Total Protein 6.2 Albumin 2.3 L Globulin 3.90 H Albumin/Globulin 0.58 Ratio Hepatitis A Antibody NEGATIVE Total Hepatitis B Surface NEGATIVE Antigen Hepatitis B Surface NEGATIVE Antibody Hepatitis B Core NEGATIVE Total Antibody Hepatitis C Antibody NEGATIVE Bedside Glucose 101 102 Medications Medication Current Medications Sodium Chloride 1,000 ml @ 40 mls/hr Q24H IV Last administered on 08/03/18at 13:30; Admin Dose 40 MLS/HR; Start 08/02/18 at 23:35 IV Flush (NS 3 ml) 3 ml PER PROTOCOL IV ; Start 08/03/18 at 00:00 Ondansetron HCl (Zofran Inj) 4 mg Q6H PRN IV NAUSEA/VOMITING Last administered on 08/03/18at 03:48; Admin Dose 4 MG; Start 08/03/18 at 00:00 Nitroglycerin (Nitroglycerin (Sl Tab) 0.4 Mg) 1 tab Q5M PRN SL .CHEST PAIN; Start 08/03/18 at 00:00 Acetaminophen (Tylenol Tab) 650 mg Q6H PRN PO .PAIN 1-3 OR TEMP; Start 08/03/18 at 00:00 Morphine Sulfate (morphine) 2 mg Q4H PRN IV .PAIN 7-10 Last administered on 08/03/18at 04:35; Admin Dose 2 MG; Start 08/03/18 at 00:00 Docusate Sodium (Colace) 100 mg Q12H PRN PO .CONSTIPATION; Start 08/03/18 at 00:00 Bisacodyl (Dulcolax) 5 mg DAILY PRN PO .CONSTIPATION; Start 08/03/18 at 00:00 Ascorbic Acid (Vitamin C) 500 mg DAILY PO ; Start 08/03/18 at 09:00 Chlorhexidine Gluconate (Peridex) 15 ml Q12H MM Last administered on 08/03/18at 13:33; Admin Dose 15 ML; Start 08/03/18 at 00:00 Digoxin (Digoxin) 0.25 mg DAILY PO Last administered on 08/03/18 08:42; Admin Dose 0.25 MG; Start 08/03/18 at 09:00 Ferrous Sulfate (Ferrous Sulfate (Ec)) 325 mg DAILY PO ; Start 08/03/18 at 09:00 Lorazepam (Ativan) 1 mg Q6 PRN PO ANXIETY; Start 08/03/18 at 00:00 Pantoprazole (Protonix Tab) 40 mg AC BREAKFAST PO ; Start 08/03/18 at 07:25 Sucralfate (Carafate) 1 gm AC MEALS AND BEDTIME PO ; Start 08/03/18 at 07:25 Diagnostic Test (Pha) (Accu-Chek) 1 ea 02 XX Last administered on 08/03/18at 02:38; Admin Dose 1 EA; Start 08/03/18 at 02:00 Insulin Aspart (Novolog Insulin Pen) NOVOLOG *MILD* ALGORI... Q4 SC ; Start 08/03/18 at 01:00 Albuterol (Proventil 0.083% (Neb)) 2.5 mg Q4H RESP THERAPY PRN NEB TRACHEOSTOMY ; Start 08/02/18 at 23:45 Multivitamins/ Minerals (Theragran-M) 1 tab DAILY PO ; Start 08/03/18 at 09:00 Miscellaneous Information 1 ea NOTE XX ; Start 08/02/18 at 23:45 Glucose (Glutose) 15 gm Q15M PRN PO DECREASED GLUCOSE; Start 08/02/18 at 23:45 Glucose (Glutose) 22.5 gm Q15M PRN PO DECREASED GLUCOSE; Start 08/02/18 at 23:45 Dextrose (D50w Syringe) 25 ml Q15M PRN IV DECREASED GLUCOSE; Start 08/02/18 at 23:45 Dextrose (D50w Syringe) 50 ml Q15M PRN IV DECREASED GLUCOSE; Start 08/02/18 at 23:45 Glucagon (Glucagen) 1 mg Q15M PRN IM DECREASED GLUCOSE; Start 08/02/18 at 23:45 Glucose (Glutose) 15 gm Q15M PRN BUCCAL DECREASED GLUCOSE; Start 08/02/18 at 23:45 Simethicone (Mylicon) 80 mg Q8H PRN PO DISTENSION/GAS/BLOATING Last administered on 08/03/18at 04:34; Admin Dose 80 MG; Start 08/03/18 at 04:30 Acetylcysteine (Mucomyst) 2 ml Q8 NEB ; Start 08/03/18 at 14:00 Amlodipine Besylate (Norvasc) 5 mg DAILY PO Last administered on 08/03/18at 08:41; Admin Dose 5 MG; Start 08/03/18 at 09:00 Fluconazole (Diflucan) 100 mg DAILY PO Last administered on 08/03/18at 13:37; Admin Dose 100 MG; Start 08/03/18 at 09:00 Linezolid (Zyvox) 600 mg BID PO Last administered on 08/03/18at 13:37; Admin D ose 600 MG; Start 08/03/18 at 09:00 Nystatin (Nystatin Cr) 1 applic BID TOP Last administered on 08/03/18at 13:34; Admin Dose 1 APPLIC; Start 08/03/18 at 09:00 Amikacin Sulfate (Amikacin Iv Per Pharmacy) AMIKACIN PER PHARMACY NOTE XX ; Start 08/03/18 at 11:30 Amikacin Sulfate 400 mg/Sodium Chloride 101.6 ml @ 101.6 mls/ hr Q48H IVPB ; Start 08/03/18 at 20:00 JUANIS FINN NP Aug 03, 2018 14:09
--- NOTE | 2018-08-03 14:15 | CONS ---
DATE OF ADMISSION: 08/02/2018 DATE OF CONSULTATION: 08/03/2018 TYPE OF CONSULTATION: Pulmonary REASON FOR CONSULTATION: Ventilator management. Thank you, Dr. Houser, for this consultation. HISTORY OF PRESENT ILLNESS: A 68-year-old gentleman with history of vent-dependent respiratory failu re, found to have loculated right effusion with intermittent extrinsic compression and volume loss. He was managed for this infection, subsequently transferred to [facility] where keyonna ent now more alert, oriented, requesting evaluation for possible surgery. PAST MEDICAL HISTORY: 1. Vent dependent respiratory failure. 2. Paroxysmal atrial fibrillation. 3. Loculated right pleural effusion, possible empyema. 4. Diastolic heart failure. 5. Dysphagia with G-tube. MEDICATIONS: Per chart. ALLERGIES: None. SOCIAL HISTORY: Nonsmoker, no alcohol, no history of drug use. FAMILY HISTORY: Noncontributory. SYSTEMS REVIEW: A 12-point review of systems was negative other than that mentioned above. PHYSICAL EXAMINATION: GENERAL: Elderly-appearing gentleman, appears comfortable at rest on mechanical ventilation. VITAL SIGNS: Currently afebrile, pulse is 80, blood pressure 147/66, O2 saturation 96%, FIO2 40%. NECK: Trach site clean and intact. CARDIAC: S1, S2, no added sounds or murmurs. CHEST: Diminished air entry bilaterally. ABDOMEN: Soft, nontender. No guarding or rebound. EXTREMITIES: No cyanosis, clubbing, 1+ edema. NEUROLOGIC: Generalized weakness. LABORATORY DATA: White count 19.5, hemoglobin 7.6, platelets of 318. BUN 26, creatinine 2.26. BNP 4150. Chest x-ray as above. IMPRESSION AND PLAN: 1. Loculated right pleural effusion. 2. Vent dependent respiratory failure. 3. Dysphagia with G-tube. PLAN: 1. Continue diuretics. 2. Continue antibiotics. 3. Continue vent support. 4. Thoracic surgery evaluation. 5. Anticipate surgery early next week versus pigtail catheter placement. Dictated By: DEJUAN ORTIZ MD SV/NTS Conf#: [id number] DID#: [id number] CC: VARSHA HOUSER MD;*EndCC*
--- NOTE | 2018-08-03 16:58 | CONS ---
Assessment/Plan Assessment/Plan Problems: (1) Type 2 diabetes mellitus with diabetic chronic kidney disease Status: Chronic Comment: Prior to transfer pt. was doing well on lantus 18 units qhs, Novolog 10 units qac and tradjenta 5 mg po daily. Will cont. these doses and monitor glucose values and titrate to goal. Qualifiers: Qualified Codes: E11.22 - Type 2 diabetes mellitus with diabetic chronic kidney disease; N18.3 - Chronic kidney disease, stage 3 (moderate); Z79.4 - long-term (current) use of insulin Consultation Date/Type/Reason Admit Date/Time Aug 02, 2018 at 22:00 Date of Consultation: Aug 03, 2018 Type of Consult Endocrinology Reason for Consultation T2DM management Requesting Provider: DEJUAN ORTIZ MD, [facility] Date/Time of Note DATE: 08/03/18 TIME: 16:52 Hx of Present Illness 68 y/o C M w/ h/o COPD, CHF, chronic respiratory failure w/ trach, A-fib, CKD stage 3, s/p R lung collapse for unclear reasons, T2DM, transferred from [facility] for worsening respiratory status. We were managing at [facility] for diabetes therapy. Subjective hx not possible: pt non-verbal Past Medical History Medical History: congestive heart failure, coronary artery disease, diabetes, renal disease, other (COPD, resp. failure) Home Meds Reported Medications Amlodipine Besylate* (Amlodipine Besylate*) 2.5 Mg Tablet, 5 MG PO DAILY, #30 TAB 08/03/18 Acetylcysteine* (Mucomyst*) 4 Ml Soln, 2 ML NEB Q8, EA 08/03/18 Sodium Ferric Gluconate Complx (FERRLECIT 62.5 MG/5 ML VIAL) 62.5 Mg/5 Ml Soln, 125 MG IV DAILY 08/03/18 Loratadine (Loratadine) 10 Mg Capsule, 10 MG PO DAILY, CAP 08/03/18 Nystatin* (Nystatin*) 15 Gm Cr, 1 APPLIC TOP BID, #1 TUB 08/03/18 Metoprolol Tartrate* (Lopressor*) 25 Mg Tablet, 25 MG PO BID, #60 TAB 08/03/18 Linezolid* (Zyvox*) 600 Mg Tablet, 600 MG PO BID, TAB 08/03/18 Linagliptin (TRADJENTA) 5 Mg Tablet, 5 MG PO DAILY, TAB 08/03/18 Fluconazole* (Fluconazole*) 100 Mg Tablet, 100 MG PO DAILY, TAB 08/03/18 Amikacin Sulfate* (Amikacin* Pediatric IV Syringe) 5 Mg/Ml Soln, 400 MG IV q48hr, EA 08/03/18 Insulin Aspart* (Novolog Insulin Pen*) 100 Unit/Ml Soln, 0 SC .SLIDING SCALE AC, EA OR 5 UNITS AC MEALS TID 07/18/18 Insulin Glargine,Hum.rec.anlog (Basaglar Kwikpen U-100) 100 Unit/1 Ml Insuln .pen, 28 UNIT SC QHS, EA 07/18/18 Insulin Glargine,Hum.rec.anlog (Basaglar Kwikpen U-100) 100 Unit/1 Ml Insuln.pen, 18 UNIT SC QAM, EA 07/18/18 Acetaminophen* (Acetaminophen*) 500 MG Extra Strength Tablet, 1000 MG PO Q8H PRN for PAIN, TAB 07/18/18 Acetaminophen* (Tylenol*) 325 Mg Tablet, 650 MG PO Q4H PRN for MILD PAIN LEVEL 1-3, TAB AND FEVER 07/18/18 Ascorbic Acid (Vitamin C) 500 Mg Tab, 500 MG PO DAILY, TAB 07/18/18 Lorazepam* (Lorazepam*) 1 Mg Tablet, 1 MG PO Q6 PRN for ANXIETY, #60 TAB 07/18/18 Sucralfate* (Carafate*) 1 Gm Tab, 1 GM PO AC MEALS AND BEDTIME, TAB 07/18/18 Rivaroxaban* (Xarelto*) 15 Mg Tablet, 15 MG PO WITH DINNER, TAB 07/18/18 Multivitamin with Minerals (Multivitamins with Minerals) 1 Each Tablet, 1 EACH PO DAILY, TAB 07/18/18 Pantoprazole* (Pantoprazole*) 40 Mg Tablet.dr, 40 MG PO AC BREAKFAST, TAB 07/18/18 Polyethylene Glycol* (Miralax*) 17 Gm Powd.pack, 17 GM PO DAILY, #30 PACKET 07/18/18 Ferrous Sulfate* (Ferrous Sulfate*) 325 Mg Tabec, 325 MG PO DAILY, TAB 07/18/18 Digoxin* (Digitek*) 250 Mcg Tablet, 0.25 MG PO DAILY, TAB HOLD IF HR<60 07/18/18 Cranberry Fruit (CRANBERRY) 450 Mg Tablet, 450 MG PO DAILY, TAB 07/18/18 Chlorhexidine Gluconate (Peridex) 473 Ml Mouthwash, 15 ML MM Q12H, BOTTLE 07/18/18 Ipratropium-Albuterol (Ipratropium-Albuterol) 0.5-3 Mg/3 Ml Ampul.neb, 3 ML INHALATION Q4H PRN for VIA TRACHEOSTOMY, #30 VIAL 07/18/18 Albuterol Sulfate* (Albuterol Sulfate* Neb) 0.083%-3 Ml Neb, 2.5 MG NEB Q4H PRN for TRACHEOSTOMY, #30 VIAL AND Q6H NEEDED 07/18/18 Medications Current Medications Sodium Chloride 1,000 ml @ 40 mls/hr Q24H IV Last administered on 08/03/18at 13:30; Admin Dose 40 MLS/HR; Start 08/02/18 at 23:35 IV Flush (NS 3 ml) 3 ml PER PROTOCOL IV ; Start 08/03/18 at 00:00 Ondansetron HCl (Zofran Inj) 4 mg Q6H PRN IV NAUSEA/VOMITING Last administered on 08/03/18at 03:48; Admin Dose 4 MG; Start 08/03/18 at 00:00 Nitroglycerin (Nitroglycerin (Sl Tab) 0.4 Mg) 1 tab Q5M PRN SL .CHEST PAIN; Start 08/03/18 at 00:00 Acetaminophen (Tylenol Tab) 650 mg Q6H PRN PO .PAIN 1-3 OR TEMP; Start 08/03/18 at 00:00 Morphine Sulfate (morphine) 2 mg Q4H PRN IV .PAIN 7-10 Last administered on 08/03/18at 04:35; Admin Dose 2 MG; Start 08/03/18 at 00:00 Docusate Sodium (Colace) 100 mg Q12H PRN PO .CONSTIPATION; Start 08/03/18 at 00:00 Bisacodyl (Dulcolax) 5 mg DAILY PRN PO .CONSTIPATION; Start 08/03/18 at 00:00 Ascorbic Acid (Vitamin C) 500 mg DAILY PO ; Start 08/03/18 at 09:00 Chlorhexidine Gluconate (Peridex) 15 ml Q12H MM Last administered on 08/03/18at 13:33; Admin Dose 15 ML; Start 08/03/18 at 00:00 Digoxin (Digoxin) 0.25 mg DAILY PO Last administered on 08/03/18at 08:42; Admin Dose 0.25 MG; Start 08/03/18 at 09:00 Ferrous Sulfate (Ferrous Sulfate (Ec)) 325 mg DAILY PO ; Start 08/03/18 at 09:00 Lorazepam (Ativan) 1 mg Q6 PRN PO ANXIETY; Start 08/03/18 at 00:00 Pantoprazole (Protonix Tab) 40 mg AC BREAKFAST PO ; Start 08/03/18 at 07:25 Sucralfate (Carafate) 1 gm AC MEALS AND BEDTIME PO ; Start 08/03/18 at 07:25 Diagnostic Test (Pha) (Accu-Chek) 1 ea 02 XX Last administered on 08/03/18at 02:38; Admin Dose 1 EA; Start 08/03/18 at 02:00 Insulin Aspart (Novolog Insulin Pen) NOVOLOG *MILD* ALGORI... Q4 SC ; Start 08/03/18 at 01:00 Albuterol (Proventil 0.083% (Neb)) 2.5 mg Q4H RESP THERAPY PRN NEB TRACHEOSTOMY; Start 08/02/18 at 23:45 Multivitamins/ Minerals (Theragran-M) 1 tab DAILY PO ; Start 08/03/18 at 09:00 Miscellaneous Information 1 ea NOTE XX ; Start 08/02/18 at 23:45 Glucose (Glutose) 15 gm Q15M PRN PO DECREASED GLUCOSE; Start 08/02/18 at 23:45 Glucose (Glutose) 22.5 gm Q15M PRN PO DECREASED GLUCOSE; Start 08/02/18 at 23:45 Dextrose (D50w Syringe) 25 ml Q15M PRN IV DECREASED GLUCOSE; Start 08/02/18 at 23:45 Dextrose (D50w Syringe) 50 ml Q15M PRN IV DECREASED GLUCOSE; Start 08/02/18 at 23:45 Glucagon (Glucagen) 1 mg Q15M PRN IM DECREASED GLUCOSE; Start 08/02/18 at 23:45 Glucose (Glutose) 15 gm Q15M PRN BUCCAL DECREASED GLUCOSE; Start 08/02/18 at 23:45 Simethicone (Mylicon) 80 mg Q8H PRN PO DISTENSION/GAS/BLOATING Last administe red on 08/03/18at 04:34; Admin Dose 80 MG; Start 08/03/18 at 04:30 Acetylcysteine (Mucomyst) 2 ml Q8 NEB ; Start 08/03/18 at 14:00 Amlodipine Besylate (Norvasc) 5 mg DAILY PO Last administered on 08/03/18at 08:41; Admin Dose 5 MG; Start 08/03/18 at 09:00 Fluconazole (Diflucan) 100 mg DAILY PO Last administered on 08/03/18at 13:37; Admin Dose 100 MG; Start 08/03/18 at 09:00 Linezolid (Zyvox) 600 mg BID PO Last administered on 08/03/18 13:37; Admin Dose 600 MG; Start 08/03/18 at 09:00 Nystatin (Nystatin Cr) 1 applic BID TOP Last administered on 08/03/18at 13:34; Admin Dose 1 APPLIC; Start 08/03/18 at 09:00 Amikacin Sulfate (Amikacin Iv Per Pharmacy) AMIKACIN PER PHARMACY NOTE XX ; Start 08/03/18 at 11:30 Amikacin Sulfate 400 mg/Sodium Chloride 101.6 ml @ 101.6 mls/ hr Q48H IVPB ; Start 08/03/18 at 20:00 Miscellaneous Information (*Rx Drug Level Order Reminder*) 1 1900 ONCE XX ; Start 08/03/18 at 19:00; Stop 08/03/18 at 19:01 Miscellaneous Information (*Rx Drug Level Order Reminder*) 1 2130 ONCE XX ; Start 08/03/18 at 21:30; Stop 08/03/18 at 21:31 Allergies: Coded Allergies: meropenem (Verified Allergy, Intermediate, skin rashes, 08/01/18) Past Surgical History Past Surgical Hx: other (tracheostomy) Family History Significant Family History: other (unknown) Social History unknown social history except lives at [facility] Alcohol Use: other (unknown) Smoking Status: Unknown if ever smoked Drug Use: other (unknown) Exam/Review of Systems Exam Vitals VS - Last 72 Hours, by Label Date Temp Pulse Resp B/P (MAP) Pulse Ox O2 O2 Flow FiO2 Time Delivery Rate 08/03/18 89 16:23 08/03/18 99.0 84 18 124/58 98 Mechanical 15:53 (80) Ventilator 08/03/18 79 19 99 40 15:24 08/03/18 77 19 99 40 13:00 08/03/18 74 12:38 08/03/18 97.4 80 16 147/66 100 Mechanical 12:09 (93) Ventilator 08/03/18 78 14 99 40 11:45 08/03/18 77 14 99 40 09:48 08/03/18 79 08:31 08/03/18 98.6 80 18 150/67 98 Mechanical 07:52 (94) Ventilator 08/03/18 78 22 99 40 07:20 08/03/18 79 18 98 40 05:43 08/03/18 81 04:00 08/03/18 99.6 79 18 147/65 97 04:00 (92) 08/03/18 80 18 98 40 03:45 08/03/18 81 16 98 40 01:08 08/03/18 80 00:00 08/03/18 97.8 80 20 145/65 99 00:00 (91) 08/02/18 84 16 98 40 23:20 08/02/18 98.2 87 24 189/84 100 Mechanical 23:11 (119) Ventilator 08/02/18 90 22:24 08/02/18 88 25 98 40 22:15 Vital Signs Date Temp Pulse Resp B/P (MAP) Pulse Ox O2 O2 Flow FiO2 Time Delivery Rate 08/03/18 89 16:23 08/03/18 99.0 18 124/58 98 Mechanical 15:53 (80) Ventilator 08/03/18 40 15:24 Intake and Output 08/02/18 08/02/18 08/03/18 1515:00 23:00 07:00 IntakeIntake Total 50 ml BalanceBalance 50 ml Constitutional: alert, oriented, obese Psych: no complaints, nl mood/affect Eyes: nl conjunctiva, EOMI, nl lids, nl sclera, PERRL ENMT: nl external ears & nose, nl lips & teeth, mucosa pink and moist Neck: supple, non-tender, other ((+) tracheostomy) Respiratory: crackles/rales, wheezing Cardiovascular: regular rate and rhythm, nl pulses, edema (2+ BLE); No murmurs/extra sounds, No rub Gastrointestinal: bowel sounds, distended, firm, tender; No mass, No rebound or guarding Musculoskeletal: nl extremities to inspection Extremities: edema (2+ BLE); No cyanosis, No clubbing Neurological: R[employer] II-XII intact, nl mental status, nl speech, nl strength Additional Comments Bedside Glucose - 72 Hours Test 08/03/18 02:34 08/03/18 04:38 08/03/18 08:39 08/03/18 13:20 Bedside 137 122 101 102 Glucose mg/dL (70-220) mg/dL (70-220) mg/dL (70-220) mg/dL (70-220) Results Result Diagram: 08/03/1872508/03/18725 Results 24hrs Laboratory Tests Test 08/03/18 00:25 08/03/18 02:34 08/03/18 04:38 08/03/18 07:21 White Blood Count 18.5 H Red Blood Count 2.97 L Hemoglobin 7.3 L Hematocrit 24.1 L Mean Corpuscular 81.1 L Volume Mean Corpuscular 24.6 L Hemoglobin Mean Corpuscular 30.3 L Hemoglobin Concent Red Cell 15.9 H Distribution Width Platelet Count 306 Mean Platelet Volume 9.3 Immature 1.500 H Granulocytes % Neutrophils % 83.2 H Lymphocytes % 5.4 L Monocytes % 8.3 Eosinophils % 1.2 Basophils % 0.4 Nucleated Red Blood 0.0 Cells % Immature 0.270 H Granulocytes # Neutrophils # 15.4 H Lymphocytes # 1.0 Monocytes # 1.5 H Eosinophils # 0.2 Basophils # 0.1 Nucleated Red Blood 0.0 Cells # Sodium Level 134 L Potassium Level 4.9 Chloride Level 104 Carbon Dioxide Level 24 Anion Gap 6 Blood Urea Nitrogen 28 H Creatinine 2.27 H Est Glomerular 29 L Filtrat Rate mL/min Glucose Level 137 Hemoglobin A1c 8.6 H Calcium Level 8.4 Total Bilirubin 0.1 L Direct Bilirubin 0.00 Indirect Bilirubin 0.1 Aspartate Amino 19 Transf (AST/SGOT) Alanine 10 L Aminotransferase (AL T/SGPT) Alkaline Phosphatase 218 H Total Protein 6.1 Albumin 2.3 L Globulin 3.80 H Albumin/Globulin 0.60 Ratio Bedside Glucose 137 122 B-Type Natriuretic 4150 H Peptide Test 08/03/18 07:26 08/03/18 08:39 08/03/18 13:20 White Blood Count 19.5 H Red Blood Count 3.09 L Hemoglobin 7.6 L Hematocrit 25.1 L Mean Corpuscular 81.2 L Volume Mean Corpuscular 24.6 L Hemoglobin Mean Corpuscular 30.3 L Hemoglobin Concent Red Cell 16.2 H Distribution Width Platelet Count 318 Mean Platelet Volume 9.3 Immature 1.300 H Granulocytes % Neutrophils % 81.3 H Lymphocytes % 7.4 L Monocytes % 8.5 Eosinophils % 1.2 Basophils % 0.3 Nucleated Red Blood 0.0 Cells % Immature 0.250 H Granulocytes # Neutrophils # 15.9 H Lymphocytes # 1.4 Monocytes # 1.7 H Eosinophils # 0.2 Basophils # 0.1 Nucleated Red Blood 0.0 Cells # Sodium Level 137 Potassium Level 4.9 Chloride Level 108 Carbon Dioxide Level 24 Anion Gap 5 Blood Urea Nitrogen 26 H Creatinine 2.26 H Est Glomerular 29 L Filtrat Rate mL/min Glucose Level 99 Calcium Level 8.8 Magnesium Level 2.1 Total Bilirubin 0.0 L Direct Bilirubin 0.00 Indirect Bilirubin 0.0 Aspartate Amino 19 Transf (AST/SGOT) Alanine 9 L Aminotransferase (AL T/SGPT) Alkaline Phosphatase 233 H Total Protein 6.2 Albumin 2.3 L Globulin 3.90 H Albumin/Globulin 0.58 Ratio Hepatitis A Antibody NEGATIVE Total Hepatitis B Surface NEGATIVE Antigen Hepatitis B Surface NEGATIVE Antibody Hepatitis B Core NEGATIVE Total Antibody Hepatitis C Antibody NEGATIVE Bedside Glucose 101 102 Medications Medication Current Medications Sodium Chloride 1,000 ml @ 40 mls/hr Q24H IV Last administered on 08/03/18at 13:30; Admin Dose 40 MLS/HR; Start 08/02/18 at 23:35 IV Flush (NS 3 ml) 3 ml PER PROTOCOL IV ; Start 08/03/18 at 00:00 Ondansetron HCl (Zofran Inj) 4 mg Q6H PRN IV NAUSEA/VOMITING Last administered on 08/03/18at 03:48; Admin Dose 4 MG; Start 08/03/18 at 00:00 Nitroglycerin (Nitroglycerin (Sl Tab) 0.4 Mg) 1 tab Q5M PRN SL .CHEST PAIN; Start 08/03/18 at 00:00 Acetaminophen (Tylenol Tab) 650 mg Q6H PRN PO .PAIN 1-3 OR TEMP; Start 08/03/18 at 00:00 Morphine Sulfate (morphine) 2 mg Q4H PRN IV .PAIN 7-10 Last administered on 08/03/18at 04:35; Admin Dose 2 MG; Start 08/03/18 at 00:00 Docusate Sodium (Colace) 100 mg Q12H PRN PO .CONSTIPATION; Start 08/03/18 at 00:00 Bisacodyl (Dulcolax) 5 mg DAILY PRN PO .CONSTIPATION; Start 08/03/18 at 00:00 Ascorbic Acid (Vitamin C) 500 mg DAILY PO ; Start 08/03/18 at 09:00 Chlorhexidine Gluconate (Peridex) 15 ml Q12H MM Last administered on 08/03/18at 13:33; Admin Dose 15 ML; Start 08/03/18 at 00:00 Digoxin (Digoxin) 0.25 mg DAILY PO Last administered on 08/03/18at 08:42; Admin Dose 0.25 MG; Start 08/03/18 at 09:00 Ferrous Sulfate (Ferrous Sulfate (Ec)) 325 mg DAILY PO ; Start 08/03/18 at 09:00 Lorazepam (Ativan) 1 mg Q6 PRN PO ANXIETY; Start 08/03/18 at 00:00 Pantoprazole (Protonix Tab) 40 mg AC BREAKFAST PO ; Start 08/03/18 at 07:25 Sucralfate (Carafate) 1 gm AC MEALS AND BEDTIME PO ; Start 08/03/18 at 07:25 Diagnostic Test (Pha) (Accu-Chek) 1 ea 02 XX Last administered on 08/03/18at 02:38; Admin Dose 1 EA; Start 08/03/18 at 02:00 Insulin Aspart (Novolog Insulin Pen) NOVOLOG *MILD* ALGORI... Q4 SC ; Start 08/03/18 at 01:00 Albuterol (Proventil 0.083% (Neb)) 2.5 mg Q4H RESP THERAPY PRN NEB TRACHEOSTOMY; Start 08/02/18 at 23:45 Multivitamins/ Minerals (Theragran-M) 1 tab DAILY PO ; Start 08/03/18 at 09:00 Miscellaneous Information 1 ea NOTE XX ; Start 08/02/18 at 23:45 Glucose (Glutose) 15 gm Q15M PRN PO DECREASED GLUCOSE; Start 08/02/18 at 23:45 Glucose (Glutose) 22.5 gm Q15M PRN PO DECREASED GLUCOSE; Start 08/02/18 at 23:45 Dextrose (D50w Syringe) 25 ml Q15M PRN IV DECREASED GLUCOSE; Start 08/02/18 at 23:45 Dextrose (D50w Syringe) 50 ml Q15M PRN IV DECREASED GLUCOSE; Start 08/02/18 at 23:45 Glucagon (Glucagen) 1 mg Q15M PRN IM DECREASED GLUCOSE; Start 08/02/18 at 23:45 Glucose (Glutose) 15 gm Q15M PRN BUCCAL DECREASED GLUCOSE; Start 08/02/18 at 23:45 Simethicone (Mylicon) 80 mg Q8H PRN PO DISTENSION/GAS/BLOATING Last administered on 08/03/18at 04:34; Admin Dose 80 MG; Start 08/03/18 at 04:30 Acetylcysteine (Mucomyst) 2 ml Q8 NEB ; Start 08/03/18 at 14:00 Amlodipine Besylate (Norvasc) 5 mg DAILY PO Last administered on 08/03/18at 08:41; Admin Dose 5 MG; Start 08/03/18 at 09:00 Fluconazole (Diflucan) 100 mg DAILY PO Last administered on 08/03/18at 13:37; Admin Dose 100 MG; Start 08/03/18 at 09:00 Linezolid (Zyvox) 600 mg BID PO Last administered on 08/03/18at 13:37; Admin Dose 600 MG; Start 08/03/18 at 09:00 Nystatin (Nystatin Cr) 1 applic BID TOP Last administered on 08/03/18at 13:34; Admin Dose 1 APPLIC; Start 08/03/18 at 09:00 Amikacin Sulfate (Amikacin Iv Per Pharmacy) AMIKACIN PER PHARMACY NOTE XX ; Start 08/03/18 at 11:30 Amikacin Sulfate 400 mg/Sodium Chloride 101.6 ml @ 101.6 mls/ hr Q48H IVPB ; Start 08/03/18 at 20:00 Miscellaneous Information (*Rx Drug Level Order Reminder*) 1 1900 ONCE XX ; Start 08/03/18 at 19:00; Stop 08/03/18 at 19:01 Miscellaneous Information (*Rx Drug Level Order Reminder*) 1 2130 ONCE XX ; Start 08/03/18 at 21:30; Stop 08/03/18 at 21:31 ANTONIO ABURTO MD Aug 03, 2018 16:58
[2018-08-03] MEDS ORDERED: AMIKACIN 400 MG in SOD CHLORIDE 0.9% 100 ML IVPB SCH (20:00)
[2018-08-03] MEDS: INSULIN GLARGINE [LANTus] (100 UNITS/ML) SYG SC SCH (22:37)
[2018-08-03] MEDS: HEPARIN 5,000 UNIT/1 ML VIAL SC SCH (22:47)
[2018-08-04] VITALS (23 sets, daily range): BP systolic 129–148; BP diastolic 60–66; PULSE 77–92; RESP 12–26
[2018-08-04] MEDS: ALBUTEROL 0.083% (NEB) 2.5 MG/3 ML AMP NEB PRN (00:36)
[2018-08-04] MEDS: ACETYLCYSTEINE 20% 4 ML VIAL NEB SCH ×3 (00:36→16:44)
[2018-08-04] MEDS: ACCU-CHEK XX SCH ×2 (01:59)
[2018-08-04] MEDS: morphine 2 MG INJ IV PRN (03:49)
[2018-08-04] MEDS: ACETAMINOPHEN 325 MG TAB PO PRN (03:49)
[2018-08-04] MEDS: HEPARIN 5,000 UNIT/1 ML VIAL SC SCH (05:55)
[2018-08-04] MEDS: INSULIN ASPART [NOVOLOG] 3 ML PEN SC SCH ×7 (07:25→20:56)
[2018-08-04] MEDS: FLUCONAZOLE 100 MG TAB PO SCH (08:46)
[2018-08-04] MEDS: PANTOPRAZOLE (EC) 40 MG TAB PO SCH (08:46)
[2018-08-04] MEDS: FERROUS SULFATE (EC) 325 MG TAB PO SCH (08:46)
[2018-08-04] MEDS: SUCRALFATE 1 GM TAB PO SCH ×4 (08:46→20:56)
[2018-08-04] MEDS: DIGOXIN 0.25 MG TAB PO SCH (08:46)
[2018-08-04] MEDS: ZYVOX 600 MG TAB PO SCH ×2 (08:47→20:56)
[2018-08-04] MEDS: MULTIVITAMINS/MINERALS TAB PO SCH (08:47)
[2018-08-04] MEDS: LINAGLIPTIN 5 MG TABLET PO SCH (08:47)
[2018-08-04] MEDS: AMLODIPINE 5 MG TAB PO SCH (08:47)
[2018-08-04] MEDS: ASCORBIC ACID 500 MG TAB PO SCH (08:47)
[2018-08-04] MEDS: NYSTATIN 15 GM CR TOP SCH ×2 (08:48→20:57)
[2018-08-04] MEDS: COLLAGENASE 5 GM (UD JAR) TOP SCH (08:48)
[2018-08-04] MEDS ORDERED: BALSAM PERU/CASTOR OIL 60 GM TUBE TOP SCH (09:00)
[2018-08-04] MEDS ORDERED: SOD CHLORIDE 0.9% 250 ML IV* ONE (09:18)
--- NOTE | 2018-08-04 09:47 | CONS ---
Assessment/Plan Assessment/Plan Assessment/Plan (Daily) Ventilator setting; AC of 14, tidal volume 550, PEEP of 5, 40% FiO2. Assessment and recommendations; next 1. Patient with history of VDR F admitted for possible right VATS procedure. Extensive right-sided pneumonia. Status post 2 bronchoscopies. 2. Severe anemia. Continue current supportive care. Transfuse blood. Patient will undergo cardiothoracic surgery evaluation and possibly undergo right-sided VATS. Consultation Date/Type/Reason Admit Date/Time Aug 02, 2018 at 22:00 Initial Consult Date 08/03/18 Type of Consult Pulmonary Reason for Consultation Patient's condition is stable. Denies any shortness of breath, chest pain, coughing, any sputum production. General exam; elderly male, on ventilator via tracheostomy, awake and alert. Currently in no distress. Requesting Provider: DEJUAN ORTIZ MD, [facility] Date/Time of Note DATE: 08/04/18 TIME: 09:45 Exam/Review of Systems Exam Vitals Vital Signs Date Temp Pulse Resp B/P (MAP) Pulse Ox O2 O2 Flow FiO2 Time Delivery Rate 08/04/18 83 08:01 08/04/18 99.1 16 132/63 98 Mechanical 07:48 (86) Ventilator 08/04/18 40 05:27 Intake and Output 08/03/18 08/03/18 08/04/18 1515:00 23:00 07:00 IntakeIntake Total 100 ml 250 ml BalanceBalance 100 ml 250 ml Exam H EENT exam; supple neck, no JVD. No lymphadenopathy. Midline trachea. No thyromegaly. Patient is edentulous. Tracheostomy in place. Insertion site is clean. Chest exam; Diminished breath sounds right lung. Left lung is clear. S1-S2 audible, no murmurs. Regular rhythm. Abdomen exam; soft, no organomegaly. Bowel sounds audible. Extremity exam; trace edema in lower extremities. SPEAR FISHER exam; no focal deficit. Results Result Diagram: 08/04/18 0729 08/04/18 0729 Results 24hrs Laboratory Tests Test 08/03/18 13:20 08/03/18 15:40 08/03/18 17:44 08/03/18 22:27 Bedside Glucose 102 128 132 Urine Color YELLOW Urine Clarity CLEAR Urine pH 5.0 Urine Specific 1.009 [place] Urine Ketones NEGATIVE Urine Nitrite NEGATIVE Urine Bilirubin NEGATIVE Urine Urobilinogen NEGATIVE Urine Leukocyte NEGATIVE Esterase Urine Microscopic 1 RBC Urine Microscopic 5 WBC Urine Squamous FEW Epithelial Cells Urine Hemoglobin 1+ H Urine Random 31.82 Creatinine Urine Random Sodium 93 H Urine Glucose 1+ H Urine Total Protein 174.0 H Test 08/04/18 02:00 08/04/18 07:29 08/04/18 07:51 Bedside Glucose 135 102 White Blood Count 15.7 H Red Blood Count 2.81 L Hemoglobin 6.9 *L Hematocrit 22.9 L Mean Corpuscular 81.5 L Volume Mean Corpuscular 24.6 L Hemoglobin Mean Corpuscular 30.1 L Hemoglobin Concent Red Cell 16.4 H Distribution Width Platelet Count 259 Mean Platelet Volume 9.2 Immature 1.500 H Granulocytes % Neutrophils % 77.2 H Lymphocytes % 9.6 L Monocytes % 9.7 Eosinophils % 1.7 Basophils % 0.3 Nucleated Red Blood 0.0 Cells % Immature 0.240 H Granulocytes # Neutrophils # 12.1 H Lymphocytes # 1.5 Monocytes # 1.5 H Eosinophils # 0.3 Basophils # 0.1 Nucleated Red Blood 0.0 Cells # Prothrombin Time 14.6 Prothrombin Time 1.1 Ratio INR International 1.13 Normalized Ratio Activated 38.8 H Partial Thromboplast Time Sodium Level 135 Potassium Level 5.0 Chloride Level 105 Carbon Dioxide Level 25 Anion Gap 5 Blood Urea Nitrogen 29 H Creatinine 2.27 H Est Glomerular 29 L Filtrat Rate mL/min Glucose Level 70 Calcium Level 8.4 Phosphorus Level 5.3 H Magnesium Level 1.9 Total Bilirubin 0.1 L Direct Bilirubin 0.00 Indirect Bilirubin 0.1 Aspartate Amino 18 Transf (AST/SGOT) Alanine 10 L Aminotransferase (AL T/SGPT) Alkaline Phosphatase 197 H Total Protein 6.0 L Albumin 2.2 L Globulin 3.80 H Albumin/Globulin 0.57 Ratio Medications Medication Current Medications IV Flush (NS 3 ml) 3 ml PER PROTOCOL IV ; Start 08/03/18 at 00:00 Ondansetron HCl (Zofran Inj) 4 mg Q6H PRN IV NAUSEA/VOMITING Last administered on 08/03/18at 03:48; Admin Dose 4 MG; Start 08/03/18 at 00:00 Nitroglycerin (Nitroglycerin (Sl Tab) 0.4 Mg) 1 tab Q5M PRN SL .CHEST PAIN; Start 08/03/18 at 00:00 Acetaminophen (Tylenol Tab) 650 mg Q6H PRN PO .PAIN 1-3 OR TEMP Last administered on 08/04/18 03:49; Admin Dose 650 MG; Start 08/03/18 at 00:00 Morphine Sulfate (morphine) 2 mg Q4H PRN IV .PAIN 7-10 Last administered on 08/04/18 03:49; Admin Dose 2 MG; Start 08/03/18 at 00:00 Docusate Sodium (Colace) 100 mg Q12H PRN PO .CONSTIPATION; Start 08/03/18 at 00:00 Bisacodyl (Dulcolax) 5 mg DAILY PRN PO .CONSTIPATION; Start 08/03/18 at 00:00 Ascorbic Acid (Vitamin C) 500 mg DAILY PO Last administered on 08/04/18 08:47; Admin Dose 500 MG; Start 08/03/18 at 09:00 Chlorhexidine Gluconate (Peridex) 15 ml Q12H MM Last administered on 08/03/18 13:33; Admin Dose 15 ML; Start 08/03/18 at 00:00 Digoxin (Digoxin) 0.25 mg DAILY PO Last administered on 08/04/18 08:46; Admin Dose 0.25 MG; Start 08/03/18 at 09:00 Ferrous Sulfate (Ferrous Sulfate (Ec)) 325 mg DAILY PO Last administered on 08/04/18 08:46; Admin Dose 325 MG; Start 08/03/18 at 09:00 Pantoprazole (Protonix Tab) 40 mg AC BREAKFAST PO Last administered on 08/04/18 08:46; Admin Dose 40 MG; Start 08/03/18 at 07:25 Sucralfate (Carafate) 1 gm AC MEALS AND BEDTIME PO Last administered on 08/04/18 08:46; Admin Dose 1 GM; Start 08/03/18 at 07:25 Albuterol (Proventil 0.083% (Neb)) 2.5 mg Q4H RESP THERAPY PRN NEB TRACHEOSTOMY Last administered on 08/04/18 00:36; Admin Dose 2.5 MG; Start 08/02/18 at 23:45 Multivitamins/ Minerals (Theragran-M) 1 tab DAILY PO Last administered on 08/04/18 08:47; Admin Dose 1 TAB; Start 08/03/18 at 09:00 Miscellaneous Information 1 ea NOTE XX ; Start 08/02/18 at 23:45 Glucose (Glutose) 15 gm Q15M PRN PO DECREASED GLUCOSE; Start 08/02/18 at 23:45 Glucose (Glutose) 22.5 gm Q15M PRN PO DECREASED GLUCOSE; Start 08/02/18 at 23:45 Dextrose (D50w Syringe) 25 ml Q15M PRN IV DECREASED GLUCOSE; Start 08/02/18 at 23:45 Dextrose (D50w Syringe) 50 ml Q15M PRN IV DECREASED GLUCOSE; Start 08/02/18 at 23:45 Glucagon (Glucagen) 1 mg Q15M PRN IM DECREASED GLUCOSE; Start 08/02/18 at 23:45 Glucose (Glutose) 15 gm Q15M PRN BUCCAL DECREASED GLUCOSE; Start 08/02/18 at 23:45 Simethicone (Mylicon) 80 mg Q8H PRN PO DISTENSION/GAS/BLOATING Last administered on 08/04/18at 01:55; Admin Dose 80 MG; Start 08/03/18 at 04:30 Amlodipine Besylate (Norvasc) 5 mg DAILY PO Last administered on 08/04/18at 08:47; Admin Dose 5 MG; Start 08/03/18 at 09:00 Fluconazole (Diflucan) 100 mg DAILY PO Last administered on 08/04/18at 08:46; Admin Dose 100 MG; Start 08/03/18 at 09:00 Linezolid (Zyvox) 600 mg BID PO Last administered on 08/04/18at 08:47; Admin Dose 600 MG; Start 08/03/18 at 09:00 Nystatin (Nystatin Cr) 1 applic BID TOP Last administered on 08/04/18at 08:48; Admin Dose 1 APPLIC; Start 08/03/18 at 09:00 Amikacin Sulfate (Amikacin Iv Per Pharmacy) AMIKACIN PER PHARMACY NOTE XX ; Start 08/03/18 at 11:30 Amikacin Sulfate 400 mg/Sodium Chloride 101.6 ml @ 101.6 mls/ hr Q48H IVPB Last administered on 08/03/18at 19:58; Admin Dose 101.6 MLS/HR; Start 08/03/18 at 20:00 Insulin Aspart (Novolog Insulin Pen) NOVOLOG *MILD* ALGORI... AC MEALS AND BEDTIME SC ; Start 08/03/18 at 17:25 Linagliptin (Tradjenta) 5 mg DAILY PO Last administered on 08/04/18 08:47; Admin Dose 5 MG; Start 08/04/18 at 09:00 Diagnostic Test (Pha) (Accu-Chek) 1 ea 02 XX Last administered on 08/04/18 01:59; Admin Dose 1 EA; Start 08/04/18 at 02:00 Insulin Glargine (Lantus) 18 units DAILY@2000 SC Last administered on 08/03/18 22:37; Admin Dose 18 UNITS; Start 08/03/18 at 20:00 Insulin Aspart (Novolog Insulin Pen) 10 unit WITH MEALS SC Last administered on 08/04/18 09:25; Admin Dose 10 UNIT; Start 08/03/18 at 17:55 Acetylcysteine (Mucomyst) 2 ml Q8H RESP THERAPY NEB Last administered on 08/04/18 08:00; Admin Dose 2 ML; Start 08/04/18 at 08:00 Collagenase (Santyl) 1 applic DAILY TOP ; Start 08/04/18 at 09:00 Enoxaparin Sodium (Lovenox) 110 mg Q24H SC ; Start 08/04/18 at 09:00 WARREN HOLLIS Aug 04, 2018 09:47
[2018-08-04] MEDS: ENOXAPARIN 100 MG/ML SYG SC SCH (10:13)
--- NOTE | 2018-08-04 11:07 | CONS ---
Assessment/Plan Assessment/Plan Assessment/Plan (Daily) 1. Chronic kidney disease with previous baseline creatinine around 2.2 to 2.3 mg/dL. The patient's renal function currently appears to be near or at baseline. Would otherwise continue current treatment plan, supportive care, renally dose all meds, avoid nephrotoxins. 2. Mineral bone disorder, monitor calcium and phosphorus levels. 3. History of diastolic heart failure. s/p lasix. 4. Ventilator dependent respiratory failure. Vent settings and ABG was reviewed. Continue to monitor. Follow up with pulmonary. 5. Right pulmonary opacification plus infiltrates, possible loculated empyema. The patient is currently on broad spectrum antibiotics. CT surgery consult has been placed for evaluation. Possible thoracotomy. Continue to monitor. 6. Paroxysmal atrial fibrillation, currently in sinus rhythm. Continue medical management. Anticoagulation has been held. 7. Diabetes. Continue current insulin regimen. 8. Sepsis, questionable history of liver cirrhosis. Continue to monitor. 9. Lower extremity edema, etiology may be secondary to congestive heart failure, cirrhosis. s/p lasix. off ivf. Consultation Date/Type/Reason Admit Date/Time Aug 02, 2018 at 22:00 Initial Consult Date 08/03/18 Requesting Provider: DEJUAN ORTIZ MD, [facility] Date/Time of Note DATE: 08/04/18 TIME: 11:04 24 HR Interval Summary Free Text/Dictation off IVF urine output not measured due to incontinence d/w rn gen nad cv rrr pulm ctab abd soft, nd, nt +bs ext: no edema Exam/Review of Systems Exam Vitals Vital Signs Date Temp Pulse Resp B/P (MAP) Pulse Ox O2 O2 Flow FiO2 Time Delivery Rate 08/04/18 80 21 100 30 09:10 08/04/18 99.1 132/63 Mechanical 07:48 (86) Ventilator Intake and Output 08/03/18 08/03/18 08/04/18 1515:00 23:00 07:00 IntakeIntake Total 100 ml 250 ml BalanceBalance 100 ml 250 ml Results Result Diagram: 08/04/18 0729 08/04/18 0729 Results 24hrs Laboratory Tests Test 08/03/18 13:20 08/03/18 15:40 08/03/18 17:44 08/03/18 22:27 Bedside Glucose 102 128 132 Urine Color YELLOW Urine Clarity CLEAR Urine pH 5.0 Urine Specific 1.009 [place] Urine Ketones NEGATIVE Urine Nitrite NEGATIVE Urine Bilirubin NEGATIVE Urine Urobilinogen NEGATIVE Urine Leukocyte NEGATIVE Esterase Urine Microscopic 1 RBC Urine Microscopic 5 WBC Urine Squamous FEW Epithelial Cells Urine Hemoglobin 1+ H Urine Random 31.82 Creatinine Urine Random Sodium 93 H Urine Glucose 1+ H Urine Total Protein 174.0 H Test 08/04/18 02:00 08/04/18 07:29 08/04/18 07:51 Bedside Glucose 135 102 White Blood Count 15.7 H Red Blood Count 2.81 L Hemoglobin 6.9 *L Hematocrit 22.9 L Mean Corpuscular 81.5 L Volume Mean Corpuscular 24.6 L Hemoglobin Mean Corpuscular 30.1 L Hemoglobin Concent Red Cell 16.4 H Distribution Width Platelet Count 259 Mean Platelet Volume 9.2 Immature 1.500 H Granulocytes % Neutrophils % 77.2 H Lymphocytes % 9.6 L Monocytes % 9.7 Eosinophils % 1.7 Basophils % 0.3 Nucleated Red Blood 0.0 Cells % Immature 0.240 H Granulocytes # Neutrophils # 12.1 H Lymphocytes # 1.5 Monocytes # 1.5 H Eosinophils # 0.3 Basophils # 0.1 Nucleated Red Blood 0.0 Cells # Prothrombin Time 14.6 Prothrombin Time 1.1 Ratio INR International 1.13 Normalized Ratio Activated 38.8 H Partial Thromboplast Time Sodium Level 135 Potassium Level 5.0 Chloride Level 105 Carbon Dioxide Level 25 Anion Gap 5 Blood Urea Nitrogen 29 H Creatinine 2.27 H Est Glomerular 29 L Filtrat Rate mL/min Glucose Level 70 Calcium Level 8.4 Phosphorus Level 5.3 H Magnesium Level 1.9 Total Bilirubin 0.1 L Direct Bilirubin 0.00 Indirect Bilirubin 0.1 Aspartate Amino 18 Transf (AST/SGOT) Alanine 10 L Aminotransferase (AL T/SGPT) Alkaline Phosphatase 197 H Total Protein 6.0 L Albumin 2.2 L Globulin 3.80 H Albumin/Globulin 0.57 Ratio Medications Medication Current Medications IV Flush (NS 3 ml) 3 ml PER PROTOCOL IV ; Start 08/03/18 at 00:00 Ondansetron HCl (Zofran Inj) 4 mg Q6H PRN IV NAUSEA/VOMITING Last administered on 08/03/18at 03:48; Admin Dose 4 MG; Start 08/03/18 at 00:00 Nitroglycerin (Nitroglycerin (Sl Tab) 0.4 Mg) 1 tab Q5M PRN SL .CHEST PAIN; Start 08/03/18 at 00:00 Acetaminophen (Tylenol Tab) 650 mg Q6H PRN PO .PAIN 1-3 OR TEMP Last administered on 08/04/18 03:49; Admin Dose 650 MG; Start 08/03/18 at 00:00 Morphine Sulfate (morphine) 2 mg Q4H PRN IV .PAIN 7-10 Last administered on 08/04/18 03:49; Admin Dose 2 MG; Start 08/03/18 at 00:00 Docusate Sodium (Colace) 100 mg Q12H PRN PO .CONSTIPATION; Start 08/03/18 at 00:00 Bisacodyl (Dulcolax) 5 mg DAILY PRN PO .CONSTIPATION; Start 08/03/18 at 00:00 Ascorbic Acid (Vitamin C) 500 mg DAILY PO Last administered on 08/04/18 08:47; Admin Dose 500 MG; Start 08/03/18 at 09:00 Chlorhexidine Gluconate (Peridex) 15 ml Q12H MM Last administered on 08/03/18 13:33; Admin Dose 15 ML; Start 08/03/18 at 00:00 Digoxin (Digoxin) 0.25 mg DAILY PO Last administered on 08/04/18 08:46; Admin Dose 0.25 MG; Start 08/03/18 at 09:00 Ferrous Sulfate (Ferrous Sulfate (Ec)) 325 mg DAILY PO Last administered on 08/04/18 08:46; Admin Dose 325 MG; Start 08/03/18 at 09:00 Pantoprazole (Protonix Tab) 40 mg AC BREAKFAST PO Last administered on 08/04/18 08:46; Admin Dose 40 MG; Start 08/03/18 at 07:25 Sucralfate (Carafate) 1 gm AC MEALS AND BEDTIME PO Last administered on 08/04/18 08:46; Admin Dose 1 GM; Start 08/03/18 at 07:25 Albuterol (Proventil 0.083% (Neb)) 2.5 mg Q4H RESP THERAPY PRN NEB TRACHEOSTOMY Last administered on 08/04/18 00:36; Admin Dose 2.5 MG; Start 08/02/18 at 23:45 Multivitamins/ Minerals (Theragran-M) 1 tab DAILY PO Last administered on 08/04/18at 08:47; Admin Dose 1 TAB; Start 08/03/18 at 09:00 Miscellaneous Information 1 ea NOTE XX ; Start 08/02/18 at 23:45 Glucose (Glutose) 15 gm Q15M PRN PO DECREASED GLUCOSE; Start 08/02/18 at 23:45 Glucose (Glutose) 22.5 gm Q15M PRN PO DECREASED GLUCOSE; Start 08/02/18 at 23:45 Dextrose (D50w Syringe) 25 ml Q15M PRN IV DECREASED GLUCOSE; Start 08/02/18 at 23:45 Dextrose (D50w Syringe) 50 ml Q15M PRN IV DECREASED GLUCOSE; Start 08/02/18 at 23:45 Glucagon (Glucagen) 1 mg Q15M PRN IM DECREASED GLUCOSE; Start 08/02/18 at 23:45 Glucose (Glutose) 15 gm Q15M PRN BUCCAL DECREASED GLUCOSE; Start 08/02/18 at 23:45 Simethicone (Mylicon) 80 mg Q8H PRN PO DISTENSION/GAS/BLOATING Last administered on 08/04/18at 01:55; Admin Dose 80 MG; Start 08/03/18 at 04:30 Amlodipine Besylate (Norvasc) 5 mg DAILY PO Last administered on 08/04/18 08:47; Admin Dose 5 MG; Start 08/03/18 at 09:00 Fluconazole (Diflucan) 100 mg DAILY PO Last administered on 08/04/18 08:46; Admin Dose 100 MG; Start 08/03/18 at 09:00 Linezolid (Zyvox) 600 mg BID PO Last administered on 08/04/18at 08:47; Admin Dose 600 MG; Start 08/03/18 at 09:00 Nystatin (Nystatin Cr) 1 applic BID TOP Last administered on 08/04/18 08:48; Admin Dose 1 APPLIC; Start 08/03/18 at 09:00 Amikacin Sulfate (Amikacin Iv Per Pharmacy) AMIKACIN PER PHARMACY NOTE XX ; Start 08/03/18 at 11:30 Amikacin Sulfate 400 mg/Sodium Chloride 101.6 ml @ 101.6 mls/ hr Q48H IVPB Last administered on 08/03/18at 19:58; Admin Dose 101.6 MLS/HR; Start 08/03/18 at 20:00 Insulin Aspart (Novolog Insulin Pen) NOVOLOG *MILD* ALGORI... AC MEALS AND BEDTIME SC ; Start 08/03/18 at 17:25 Linagliptin (Tradjenta) 5 mg DAILY PO Last administered on 08/04/18at 08:47; Admin Dose 5 MG; Start 08/04/18 at 09:00 Diagnostic Test (Pha) (Accu-Chek) 1 ea 02 XX Last administered on 08/04/18at 01:59; Admin Dose 1 EA; Start 08/04/18 at 02:00 Insulin Glargine (Lantus) 18 units DAILY@2000 SC Last administered on 08/03/18 22:37; Admin Dose 18 UNITS; Start 08/03/18 at 20:00 Insulin Aspart (Novolog Insulin Pen) 10 unit WITH MEALS SC Last administered on 08/04/18at 09:25; Admin Dose 10 UNIT; Start 08/03/18 at 17:55 Acetylcysteine (Mucomyst) 2 ml Q8H RESP THERAPY NEB Last administered on 08/04/18at 08:00; Admin Dose 2 ML; Start 08/04/18 at 08:00 Collagenase (Santyl) 1 applic DAILY TOP ; Start 08/04/18 at 09:00 Enoxaparin Sodium (Lovenox) 110 mg Q24H SC Last administered on 08/04/18at 10:13; Admin Dose 110 MG; Start 08/04/18 at 09:00 MEETA CUMMINS MD Aug 04, 2018 11:07
[2018-08-04] MEDS: CHLORHEXIDINE GLUCONATE 15 ML UD CUP MM SCH ×2 (12:55)
--- NOTE | 2018-08-04 13:50 | PN ---
Date/Time of Note Date/Time of Note DATE: 08/04/18 TIME: 13:45 Assessment/Plan VTE Prophylaxis Risk score (from Nsg)>0 risk: 9 SCD applied (from Nsg): Yes Pharmacological prophylaxis: LMWH Lines/Catheters IV Catheter Type (from Nrsg): Mid Line Urinary Cath still in place: No Assessment/Plan Assessment/Plan This is a 68-year-old man with a past medical history of chronic respiratory f ailure status post trach, who was transferred from [facility] to [facility] for evaluation of loculated empyema ad possible VATS. The patient was a previous resident of [facility], was noted to have a loculated fluid effusion. The patient, after attempted bronchoscopy and post chest-tube without improvement of loculated fluid was subsequently transferred to [facility] for surgical evaluation. #1 acute on chronic hypoxemic and hypercarbic respiratory failure: -Patient is on chronic ventilatory support. -Continue vent management as per pulmonary. #2 Right pulmonary opacification plus infiltrates: -Suspicion likely for large loculated thick pleural effusion, loculated empyema s/p failed bronchoscopy and chest tube -Patient is currently on broad-spectrum antibiotics of Zyvox, fluconazole We will continue antibiotics at the current time. ID consulted -CT surgery has been consulted by pulmonary medicine in regards to possible surgical intervention with a thoracotomy. #3 Paroxysmal atrial fibrillation: -Currently in sinus rhythm. Continue to monitor. -Xarelto on hold at the current time given possibility for surgical intervention. -For now, on renally-dosed therapeutic lovenox. #4 anemia of chronic disease: - Transfuse for Hgb<7 or for symptomatic anemia. #5 Chronic kidney disease stage III r/o FROILAN: -last Cr per notes 2.11, amikacin on hold -nephro consulted, f/u trend and recommendations #6 diabetes mellitus: -no surgery planned, resume diet and pev regimen, -note that patient is being fed orally #7 diastolic CHF, chronic with bilateral lower extremity edema: -continue lasix -may also be related to anasarca from #8 #8 Hepatic cirrhosis: -Chest CT shows possible liver cirrhosis confirmed on USS. f/u hepatitis serologies. #9 DVT GI prophylaxis: lovenox, Protonix Dispo: -spoke with CTS, tentative plan for surgery early next week. -on his assessment though, patient may not require open surgery , but may be able to do well with pigtail and abx, he wants pulmonary to reassess (he was unable to asses prior to transfer as he had no tobias priviledges) -so for now, continue abx, and supportive care, advance diet and await pulmonary's recommendations -Continue to hold Xarelto, but start Lovenox at anticoagulant dosing since patient is likely to get some kind of procedure Result Diagram: 08/04/18 0729 08/04/18 07 Subjective 24 Hr Interval Summary Free Text/Dictation No acute overnight events. Patient awake, responsive today. Exam/Review of Systems Exam Vitals Vital Signs Date Temp Pulse Resp B/P (MAP) Pulse Ox O2 O2 Flow FiO2 Time Delivery Rate 08/04/18 99.1 77 18 137/63 98 Mechanical 11:19 (87) Ventilator 08/04/18 40 11:10 Intake and Output 08/03/18 08/03/18 08/04/18 1515:00 23:00 07:00 IntakeIntake Total 100 ml 250 ml BalanceBalance 100 ml 250 ml Exam General: Obese man lying in bed, deflated trach on vent. HEENT: Atraumatic, normocephalic. Neck: trach to vent Lungs: Mechanical, coarse breath sounds throughout. Heart: Normal S1-S2, Regular rhythm and rate. No murmur, S3, or S4 Abdomen: Soft , obese, nontender, nondistended , bowel sounds are present. Extremities: 2+ bilateral lower extremity edema Neurologic: awake, alert. Able to talk with deflated cuff. Results Results 24hrs Laboratory Tests Test 08/03/18 15:40 08/03/18 17:44 08/03/18 22:27 08/04/18 02:00 Urine Color YELLOW Urine Clarity CLEAR Urine pH 5.0 Urine Specific 1.009 [place] Urine Ketones NEGATIVE Urine Nitrite NEGATIVE Urine Bilirubin NEGATIVE Urine Urobilinogen NEGATIVE Urine Leukocyte NEGATIVE Esterase Urine Microscopic 1 RBC Urine Microscopic 5 WBC Urine Squamous FEW Epithelial Cells Urine Hemoglobin 1+ H Urine Random 31.82 Creatinine Urine Random Sodium 93 H Urine Glucose 1+ H Urine Total Protein 174.0 H Bedside Glucose 128 132 135 Test 08/04/18 07:29 08/04/18 07:51 08/04/18 11:47 White Blood Count 15.7 H Red Blood Count 2.81 L Hemoglobin 6.9 *L Hematocrit 22.9 L Mean Corpuscular 81.5 L Volume Mean Corpuscular 24.6 L Hemoglobin Mean Corpuscular 30.1 L Hemoglobin Concent Red Cell 16.4 H Distribution Width Platelet Count 259 Mean Platelet Volume 9.2 Immature 1.500 H Granulocytes % Neutrophils % 77.2 H Lymphocytes % 9.6 L Monocytes % 9.7 Eosinophils % 1.7 Basophils % 0.3 Nucleated Red Blood 0.0 Cells % Immature 0.240 H Granulocytes # Neutrophils # 12.1 H Lymphocytes # 1.5 Monocytes # 1.5 H Eosinophils # 0.3 Basophils # 0.1 Nucleated Red Blood 0.0 Cells # Prothrombin Time 14.6 Prothrombin Time 1.1 Ratio INR International 1.13 Normalized Ratio Activated 38.8 H Partial Thromboplast Time Sodium Level 135 Potassium Level 5.0 Chloride Level 105 Carbon Dioxide Level 25 Anion Gap 5 Blood Urea Nitrogen 29 H Creatinine 2.27 H Est Glomerular 29 L Filtrat Rate mL/min Glucose Level 70 Calcium Level 8.4 Phosphorus Level 5.3 H Magnesium Level 1.9 Total Bilirubin 0.1 L Direct Bilirubin 0.00 Indirect Bilirubin 0.1 Aspartate Amino 18 Transf (AST/SGOT) Alanine 10 L Aminotransferase (AL T/SGPT) Alkaline Phosphatase 197 H Total Protein 6.0 L Albumin 2.2 L Globulin 3.80 H Albumin/Globulin 0.57 Ratio Bedside Glucose 102 98 Medications Medication Current Medications IV Flush (NS 3 ml) 3 ml PER PROTOCOL IV ; Start 08/03/18 at 00:00 Ondansetron HCl (Zofran Inj) 4 mg Q6H PRN IV NAUSEA/VOMITING Last administered on 08/03/18 03:48; Admin Dose 4 MG; Start 08/03/18 at 00:00 Nitroglycerin (Nitroglycerin (Sl Tab) 0.4 Mg) 1 tab Q5M PRN SL .CHEST PAIN; Start 08/03/18 at 00:00 Acetaminophen (Tylenol Tab) 650 mg Q6H PRN PO .PAIN 1-3 OR TEMP Last administered on 08/04/18 03:49; Admin Dose 650 MG; Start 08/03/18 at 00:00 Morphine Sulfate (morphine) 2 mg Q4H PRN IV .PAIN 7-10 Last administered on 08/04/18 03:49; Admin Dose 2 MG; Start 08/03/18 at 00:00 Docusate Sodium (Colace) 100 mg Q12H PRN PO .CONSTIPATION; Start 08/03/18 at 00:00 Bisacodyl (Dulcolax) 5 mg DAILY PRN PO .CONSTIPATION; Start 08/03/18 at 00:00 Ascorbic Acid (Vitamin C) 500 mg DAILY PO Last administered on 08/04/18 08:47; Admin Dose 500 MG; Start 08/03/18 at 09:00 Chlorhexidine Gluconate (Peridex) 15 ml Q12H MM Last administered on 08/04/18 12:55; Admin Dose 15 ML; Start 08/03/18 at 00:00 Digoxin (Digoxin) 0.25 mg DAILY PO Last administered on 08/04/18 08:46; Admin Dose 0.25 MG; Start 08/03/18 at 09:00 Ferrous Sulfate (Ferrous Sulfate (Ec)) 325 mg DAILY PO Last administered on 08/04/18 08:46; Admin Dose 325 MG; Start 08/03/18 at 09:00 Pantoprazole (Protonix Tab) 40 mg AC BREAKFAST PO Last administered on 08/04/18 08:46; Admin Dose 40 MG; Start 08/03/18 at 07:25 Sucralfate (Carafate) 1 gm AC MEALS AND BEDTIME PO Last administered on 08/04/18 12:55; Admin Dose 1 GM; Start 08/03/18 at 07:25 Albuterol (Proventil 0.083% (Neb)) 2.5 mg Q4H RESP THERAPY PRN NEB TRACHEOSTOMY Last administered on 08/04/18 00:36; Admin Dose 2.5 MG; Start 08/02/18 at 23:45 Multivitamins/ Minerals (Theragran-M) 1 tab DAILY PO Last administered on 08/04/18 08:47; Admin Dose 1 TAB; Start 08/03/18 at 09:00 Miscellaneous Information 1 ea NOTE XX ; Start 08/02/18 at 23:45 Glucose (Glutose) 15 gm Q15M PRN PO DECREASED GLUCOSE; Start 08/02/18 at 23:45 Glucose (Glutose) 22.5 gm Q15M PRN PO DECREASED GLUCOSE; Start 08/02/18 at 23:45 Dextrose (D50w Syringe) 25 ml Q15M PRN IV DECREASED GLUCOSE; Start 08/02/18 at 23:45 Dextrose (D50w Syringe) 50 ml Q15M PRN IV DECREASED GLUCOSE; Start 08/02/18 at 23:45 Glucagon (Glucagen) 1 mg Q15M PRN IM DECREASED GLUCOSE; Start 08/02/18 at 23:45 Glucose (Glutose) 15 gm Q15M PRN BUCCAL DECREASED GLUCOSE; Start 08/02/18 at 23:45 Simethicone (Mylicon) 80 mg Q8H PRN PO DISTENSION/GAS/BLOATING Last a dministered on 08/04/18at 01:55; Admin Dose 80 MG; Start 08/03/18 at 04:30 Amlodipine Besylate (Norvasc) 5 mg DAILY PO Last administered on 08/04/18at 08:47; Admin Dose 5 MG; Start 08/03/18 at 09:00 Fluconazole (Diflucan) 100 mg DAILY PO Last administered on 08/04/18 08:46; Admin Dose 100 MG; Start 08/03/18 at 09:00 Linezolid (Zyvox) 600 mg BID PO Last administered on 08/04/18at 08:47; Admin Dose 600 MG; Start 08/03/18 at 09:00 Nystatin (Nystatin Cr) 1 applic BID TOP Last administered on 08/04/18at 08:48; Admin Dose 1 APPLIC; Start 08/03/18 at 09:00 Amikacin Sulfate (Amikacin Iv Per Pharmacy) AMIKACIN PER PHARMACY NOTE XX ; Start 08/03/18 at 11:30 Amikacin Sulfate 400 mg/Sodium Chloride 101.6 ml @ 101.6 mls/ hr Q48H IVPB Last administered on 08/03/18at 19:58; Admin Dose 101.6 MLS/HR; Start 08/03/18 at 20:00 Insulin Aspart (Novolog Insulin Pen) NOVOLOG *MILD* ALGORI... AC MEALS AND BED TIME SC ; Start 08/03/18 at 17:25 Linagliptin (Tradjenta) 5 mg DAILY PO Last administered on 08/04/18at 08:47; Admin Dose 5 MG; Start 08/04/18 at 09:00 Diagnostic Test (Pha) (Accu-Chek) 1 02 XX Last administered on 08/04/18at 01:59; Admin Dose 1 EA; Start 08/04/18 at 02:00 Insulin Glargine (Lantus) 18 units DAILY@2000 SC Last administered on 08/03/18at 22:37; Admin Dose 18 UNITS; Start 08/03/18 at 20:00 Insulin Aspart (Novolog Insulin Pen) 10 unit WITH MEALS SC Last administered on 08/04/18at 11:52; Admin Dose 10 UNIT; Start 08/03/18 at 17:55 Acetylcysteine (Mucomyst) 2 ml Q8H RESP THERAPY NEB Last administered on 08/04/18at 08:00; Admin Dose 2 ML; Start 08/04/18 at 08:00 Collagenase (Santyl) 1 applic DAILY TOP ; Start 08/04/18 at 09:00 Enoxaparin Sodium (Lovenox) 110 mg Q24H SC Last administered on 08/04/18at 10:13; Admin Dose 110 MG; Start 08/04/18 at 09:00 LALITO CENTENO MD Aug 04, 2018 13:49
--- NOTE | 2018-08-04 14:27 | CONS ---
Assessment/Plan Assessment/Plan Hospital Course (Demo Recall) Type 2 DM -FS readings in target range -continue Lantus 18 units sc daily -continue novolog 10 units TIDAC and tradjenta 5mg daily -continue mild dose novolog correction scale AC and HS -check FS AC and HS Consultation Date/Type/Reason Admit Date/Time Aug 02, 2018 at 22:00 Initial Consult Date 08/03/18 Requesting Provider: DEJUAN ORTIZ MD, [facility] Date/Time of Note DATE: 08/04/18 TIME: 14:24 24 HR Interval Summary Free Text/Dictation Patient seen and examined at bedside. No acute events overnight. FS reviewed, all within target range on current regimen Exam/Review of Systems Exam Vitals Vital Signs Date Temp Pulse Resp B/P (MAP) Pulse Ox O2 O2 Flow FiO2 Time Delivery Rate 08/04/18 86 20 99 30 13:05 08/04/18 99.1 137/63 Mechanical 11:19 (87) Ventilator Intake and Output 08/03/18 08/03/18 08/04/18 1515:00 23:00 07:00 IntakeIntake Total 100 ml 250 ml BalanceBalance 100 ml 250 ml Exam General: Comfortable in appearance, not in acute distress. Skin appropriate for ethnicity Eye: Extraocular movements are intact, Normal conjunctiva. HENT: Normocephalic, atraumatic. Trach intact Respiratory: Respirations are non-labored, Breath sounds are equal, Symmetrical chest wall expansion. Cardiovascular: S1, S2. No murmur. Gastrointestinal: Soft, Non-tender, Non-distended, Normal bowel sounds. Integumentary: Warm to touch. Neurologic: Alert and awake Results Result Diagram: 08/04/18 0729 08/04/18 0729 Results 24hrs Laboratory Tests Test 08/03/18 15:40 08/03/18 17:44 08/03/18 22:27 08/04/18 02:00 Urine Color YELLOW Urine Clarity CLEAR Urine pH 5.0 Urine Specific 1.009 [place] Urine Ketones NEGATIVE Urine Nitrite NEGATIVE Urine Bilirubin NEGATIVE Urine Urobilinogen NEGATIVE Urine Leukocyte NEGATIVE Esterase Urine Microscopic 1 RBC Urine Microscopic 5 WBC Urine Squamous FEW Epithelial Cells Urine Hemoglobin 1+ H Urine Random 31.82 Creatinine Urine Random Sodium 93 H Urine Glucose 1+ H Urine Total Protein 174.0 H Bedside Glucose 128 132 135 Test 08/04/18 07:29 08/04/18 07:51 08/04/18 11:47 White Blood Count 15.7 H Red Blood Count 2.81 L Hemoglobin 6.9 *L Hematocrit 22.9 L Mean Corpuscular 81.5 L Volume Mean Corpuscular 24.6 L Hemoglobin Mean Corpuscular 30.1 L Hemoglobin Concent Red Cell 16.4 H Distribution Width Platelet Count 259 Mean Platelet Volume 9.2 Immature 1.500 H Granulocytes % Neutrophils % 77.2 H Lymphocytes % 9.6 L Monocytes % 9.7 Eosinophils % 1.7 Basophils % 0.3 Nucleated Red Blood 0.0 Cells % Immature 0.240 H Granulocytes # Neutrophils # 12.1 H Lymphocytes # 1.5 Monocytes # 1.5 H Eosinophils # 0.3 Basophils # 0.1 Nucleated Red Blood 0.0 Cells # Prothrombin Time 14.6 Prothrombin Time 1.1 Ratio INR International 1.13 Normalized Ratio Activated 38.8 H Partial Thromboplast Time Sodium Level 135 Potassium Level 5.0 Chloride Level 105 Carbon Dioxide Level 25 Anion Gap 5 Blood Urea Nitrogen 29 H Creatinine 2.27 H Est Glomerular 29 L Filtrat Rate mL/min Glucose Level 70 Calcium Level 8.4 Phosphorus Level 5.3 H Magnesium Level 1.9 Total Bilirubin 0.1 L Direct Bilirubin 0.00 Indirect Bilirubin 0.1 Aspartate Amino 18 Transf (AST/SGOT) Alanine 10 L Aminotransferase (AL T/SGPT) Alkaline Phosphatase 197 H Total Protein 6.0 L Albumin 2.2 L Globulin 3.80 H Albumin/Globulin 0.57 Ratio Bedside Glucose 102 98 Medications Medication Current Medications IV Flush (NS 3 ml) 3 ml PER PROTOCOL IV ; Start 08/03/18 at 00:00 Ondansetron HCl (Zofran Inj) 4 mg Q6H PRN IV NAUSEA/VOMITING Last administered on 08/03/18at 03:48; Admin Dose 4 MG; Start 08/03/18 at 00:00 Nitroglycerin (Nitroglycerin (Sl Tab) 0.4 Mg) 1 tab Q5M PRN SL .CHEST PAIN; Start 08/03/18 at 00:00 Acetaminophen (Tylenol Tab) 650 mg Q6H PRN PO .PAIN 1-3 OR TEMP Last administered on 08/04/18at 03:49; Admin Dose 650 MG; Start 08/03/18 at 00:00 Morphine Sulfate (morphine) 2 mg Q4H PRN IV .PAIN 7-10 Last administered on 08/04/18 03:49; Admin Dose 2 MG; Start 08/03/18 at 00:00 Docusate Sodium (Colace) 100 mg Q12H PRN PO .CONSTIPATION; Start 08/03/18 at 00:00 Bisacodyl (Dulcolax) 5 mg DAILY PRN PO .CONSTIPATION; Start 08/03/18 at 00:00 Ascorbic Acid (Vitamin C) 500 mg DAILY PO Last administered on 08/04/18 08:47; Admin Dose 500 MG; Start 08/03/18 at 09:00 Chlorhexidine Gluconate (Peridex) 15 ml Q12H MM Last administered on 08/04/18 12:55; Admin Dose 15 ML; Start 08/03/18 at 00:00 Digoxin (Digoxin) 0.25 mg DAILY PO Last administered on 08/04/18 08:46; Admin Dose 0.25 MG; Start 08/03/18 at 09:00 Ferrous Sulfate (Ferrous Sulfate (Ec)) 325 mg DAILY PO Last administered on 08/04/18 08:46; Admin Dose 325 MG; Start 08/03/18 at 09:00 Pantoprazole (Protonix Tab) 40 mg AC BREAKFAST PO Last administered on 08/04/18 08:46; Admin Dose 40 MG; Start 08/03/18 at 07:25 Sucralfate (Carafate) 1 gm AC MEALS AND BEDTIME PO Last administered on 08/04/18 12:55; Admin Dose 1 GM; Start 08/03/18 at 07:25 Albuterol (Proventil 0.083% (Neb)) 2.5 mg Q4H RESP THERAPY PRN NEB TRACHEOSTOMY Last administered on 08/04/18 00:36; Admin Dose 2.5 MG; Start 08/02/18 at 23:45 Multivitamins/ Minerals (Theragran-M) 1 tab DAILY PO Last administered on 08/04/18 08:47; Admin Dose 1 TAB; Start 08/03/18 at 09:00 Miscellaneous Information 1 ea NOTE XX ; Start 08/02/18 at 23:45 Glucose (Glutose) 15 gm Q15M PRN PO DECREASED GLUCOSE; Start 08/02/18 at 23:45 Glucose (Glutose) 22.5 gm Q15M PRN PO DECREASED GLUCOSE; Start 08/02/18 at 23:45 Dextrose (D50w Syringe) 25 ml Q15M PRN IV DECREASED GLUCOSE; Start 08/02/18 at 23:45 Dextrose (D50w Syringe) 50 ml Q15M PRN IV DECREASED GLUCOSE; Start 08/02/18 at 23:45 Glucagon (Glucagen) 1 mg Q15M PRN IM DECREASED GLUCOSE; Start 08/02/18 at 23:45 Glucose (Glutose) 15 gm Q15M PRN BUCCAL DECREASED GLUCOSE; Start 08/02/18 at 23:45 Simethicone (Mylicon) 80 mg Q8H PRN PO DISTENSION/GAS/BLOATING Last administered on 08/04/18at 01:55; Admin Dose 80 MG; Start 08/03/18 at 04:30 Amlodipine Besylate (Norvasc) 5 mg DAILY PO Last administered on 08/04/18 08:47; Admin Dose 5 MG; Start 08/03/18 at 09:00 Fluconazole (Diflucan) 100 mg DAILY PO Last administered on 08/04/18at 08:46; Admin Dose 100 MG; Start 08/03/18 at 09:00 Linezolid (Zyvox) 600 mg BID PO Last administered on 08/04/18 08:47; Admin Dose 600 MG; Start 08/03/18 at 09:00 Nystatin (Nystatin Cr) 1 applic BID TOP Last administered on 08/04/18at 08:48; Admin Dose 1 APPLIC; Start 08/03/18 at 09:00 Amikacin Sulfate (Amikacin Iv Per Pharmacy) AMIKACIN PER PHARMACY NOTE XX ; Start 08/03/18 at 11:30 Insulin Aspart (Novolog Insulin Pen) NOVOLOG *MILD* ALGORI... AC MEALS AND BEDTIME SC ; Start 08/03/18 at 17:25 Linagliptin (Tradjenta) 5 mg DAILY PO Last administered on 08/04/18at 08:47; Admin Dose 5 MG; Start 08/04/18 at 09:00 Diagnostic Test (Pha) (Accu-Chek) 1 ea 02 XX Last administered on 08/04/18at 0 1:59; Admin Dose 1 EA; Start 08/04/18 at 02:00 Insulin Glargine (Lantus) 18 units DAILY@2000 SC Last administered on 08/03/18at 22:37; Admin Dose 18 UNITS; Start 08/03/18 at 20:00 Insulin Aspart (Novolog Insulin Pen) 10 unit WITH MEALS SC Last administered on 08/04/18at 11:52; Admin Dose 10 UNIT; Start 08/03/18 at 17:55 Acetylcysteine (Mucomyst) 2 ml Q8H RESP THERAPY NEB Last administered on at 08:00; Admin Dose 2 ML; Start 08/04/18 at 08:00 Collagenase (Santyl) 1 applic DAILY TOP ; Start 08/04/18 at 09:00 Enoxaparin Sodium (Lovenox) 110 mg Q24H SC Last administered on 08/04/18at 10: 13; Admin Dose 110 MG; Start 08/04/18 at 09:00 Amikacin Sulfate 500 mg/Sodium Chloride 102 ml @ 101.6 mls/ hr Q48H IVPB ; Start 08/05/18 at 20:00 LOUIE BROWN MD Aug 04, 2018 14:27
--- NOTE | 2018-08-04 17:16 | CONS ---
Consultation Date/Type/Reason Admit Date/Time Aug 02, 2018 at 22:00 Initial Consult Date SUBJECTIVE: TRach to VENT pt with PNA. No fevers. Sleeping, looks comfortable. NO acute events over night. VS: stable T: 98.5 LABS: Reviewed. WBC- 15.7 Improving. Microbiology: Sputum culture growing Serratia and pseudomonas aeruginosa, multidrug-resistant, urine culture grew Annmarie albicans Antimicrobials: Amikacin, Zyvox, fluconazole Indwelling: Trach PEG Physical examination: Well-developed fragile elderly man who is awake in no distress. HENT: Head atraumatic normocephalic. Neck is supple, tracheostomy present. PULM: Chest rise symmetrical, breath sounds diminished bases. Heart: S1-S2. Abdomen soft bowel sounds present Extremities: + mild edema bilat LE. No cyanosis Assessment: 1. Systemic inflammatory response syndrome with ongoing leukocytosis 2. HCAP with loculated pleural effusion possible empyema 3. Acute on chronic kidney disease 4. Dysphagia 5. Fungal UTI 6. Paroxysmal atrial fibrillation 7. Diabetes Plan: Patient is stable. Continue current antibiotics. No fevers and WBC is improving. Pulm recommendations. Requesting Provider: DEJUAN ORTIZ MD, [facility] Date/Time of Note DATE: 08/04/18 TIME: 17:11 Exam/Review of Systems Exam Vitals Vital Signs Date Temp Pulse Resp B/P (MAP) Pulse Ox O2 O2 Flow FiO2 Time Delivery Rate 08/04/18 78 16:01 08/04/18 98.5 18 129/61 100 Mechanical 15:44 (83) Ventilator 08/04/18 30 15:15 Intake and Output 08/03/18 08/03/18 08/04/18 1515:00 23:00 07:00 IntakeIntake Total 100 ml 250 ml BalanceBalance 100 ml 250 ml Results Result Diagram: 08/04/18 0729 08/04/18 0729 Results 24hrs Laboratory Tests Test 08/03/18 17:44 08/03/18 22:27 08/04/18 02:00 08/04/18 07:29 Bedside Glucose 128 132 135 White Blood Count 15.7 H Red Blood Count 2.81 L Hemoglobin 6.9 *L Hematocrit 22.9 L Mean Corpuscular 81.5 L Volume Mean Corpuscular 24.6 L Hemoglobin Mean Corpuscular 30.1 L Hemoglobin Concent Red Cell 16.4 H Distribution Width Platelet Count 259 Mean Platelet Volume 9.2 Immature 1.500 H Granulocytes % Neutrophils % 77.2 H Lymphocytes % 9.6 L Monocytes % 9.7 Eosinophils % 1.7 Basophils % 0.3 Nucleated Red Blood 0.0 Cells % Immature 0.240 H Granulocytes # Neutrophils # 12.1 H Lymphocytes # 1.5 Monocytes # 1.5 H Eosinophils # 0.3 Basophils # 0.1 Nucleated Red Blood 0.0 Cells # Prothrombin Time 14.6 Prothrombin Time 1.1 Ratio INR International 1.13 Normalized Ratio Activated 38.8 H Partial Thromboplast Time Sodium Level 135 Potassium Level 5.0 Chloride Level 105 Carbon Dioxide Level 25 Anion Gap 5 Blood Urea Nitrogen 29 H Creatinine 2.27 H Est Glomerular 29 L Filtrat Rate mL/min Glucose Level 70 Calcium Level 8.4 Phosphorus Level 5.3 H Magnesium Level 1.9 Total Bilirubin 0.1 L Direct Bilirubin 0.00 Indirect Bilirubin 0.1 Aspartate Amino 18 Transf (AST/SGOT) Alanine 10 L Aminotransferase (AL T/SGPT) Alkaline Phosphatase 197 H Total Protein 6.0 L Albumin 2.2 L Globulin 3.80 H Albumin/Globulin 0.57 Ratio Test 08/04/18 07:51 08/04/18 11:47 Bedside Glucose 102 98 Medications Medication Current Medications IV Flush (NS 3 ml) 3 ml PER PROTOCOL IV ; Start 08/03/18 at 00:00 Ondansetron HCl (Zofran Inj) 4 mg Q6H PRN IV NAUSEA/VOMITING Last administered on 08/03/18at 03:48; Admin Dose 4 MG; Start 08/03/18 at 00:00 Nitroglycerin (Nitroglycerin (Sl Tab) 0.4 Mg) 1 tab Q5M PRN SL .CHEST PAIN; Start 08/03/18 at 00:00 Acetaminophen (Tylenol Tab) 650 mg Q6H PRN PO .PAIN 1-3 OR TEMP Last administered on 08/04/18 03:49; Admin Dose 650 MG; Start 08/03/18 at 00:00 Morphine Sulfate (morphine) 2 mg Q4H PRN IV .PAIN 7-10 Last administered on 08/04/18at 03:49; Admin Dose 2 MG; Start 08/03/18 at 00:00 Docusate Sodium (Colace) 100 mg Q12H PRN PO .CONSTIPATION; Start 08/03/18 at 00:00 Bisacodyl (Dulcolax) 5 mg DAILY PRN PO .CONSTIPATION; Start 08/03/18 at 00:00 Ascorbic Acid (Vitamin C) 500 mg DAILY PO Last administered on 08/04/18 08:47; Admin Dose 500 MG; Start 08/03/18 at 09:00 Chlorhexidine Gluconate (Peridex) 15 ml Q12H MM Last administered on 08/04/18 12:55; Admin Dose 15 ML; Start 08/03/18 at 00:00 Digoxin (Digoxin) 0.25 mg DAILY PO Last administered on 08/04/18 08:46; Admin Dose 0.25 MG; Start 08/03/18 at 09:00 Ferrous Sulfate (Ferrous Sulfate (Ec)) 325 mg DAILY PO Last administered on 08/04/18 08:46; Admin Dose 325 MG; Start 08/03/18 at 09:00 Pantoprazole (Protonix Tab) 40 mg AC BREAKFAST PO Last administered on 08/04/18 08:46; Admin Dose 40 MG; Start 08/03/18 at 07:25 Sucralfate (Carafate) 1 gm AC MEALS AND BEDTIME PO Last administered on 08/04/18 12:55; Admin Dose 1 GM; Start 08/03/18 at 07:25 Albuterol (Proventil 0.083% (Neb)) 2.5 mg Q4H RESP THERAPY PRN NEB TRACHEOSTOMY Last administered on 08/04/18 00:36; Admin Dose 2.5 MG; Start 08/02/18 at 23:45 Multivitamins/ Minerals (Theragran-M) 1 tab DAILY PO Last administered on 08/04/18 08:47; Admin Dose 1 TAB; Start 08/03/18 at 09:00 Miscellaneous Information 1 ea NOTE XX ; Start 08/02/18 at 23:45 Glucose (Glutose) 15 gm Q15M PRN PO DECREASED GLUCOSE; Start 08/02/18 at 23:45 Glucose (Glutose) 22.5 gm Q15M PRN PO DECREASED GLUCOSE; Start 08/02/18 at 23:45 Dextrose (D50w Syringe) 25 ml Q15M PRN IV DECREASED GLUCOSE; Start 08/02/18 at 23:45 Dextrose (D50w Syringe) 50 ml Q15M PRN IV DECREASED GLUCOSE; Start 08/02/18 at 23:45 Glucagon (Glucagen) 1 mg Q15M PRN IM DECREASED GLUCOSE; Start 08/02/18 at 23:45 Glucose (Glutose) 15 gm Q15M PRN BUCCAL DECREASED GLUCOSE; Start 08/02/18 at 23:45 Simethicone (Mylicon) 80 mg Q8H PRN PO DISTENSION/GAS/BLOATING Last administered on 08/04/18 01:55; Admin Dose 80 MG; Start 08/03/18 at 04:30 Amlodipine Besylate (Norvasc) 5 mg DAILY PO Last administered on 08/04/18 08:47; Admin Dose 5 MG; Start 08/03/18 at 09:00 Fluconazole (Diflucan) 100 mg DAILY PO Last administered on 08/04/18 08:46; Admin Dose 100 MG; Start 08/03/18 at 09:00 Linezolid (Zyvox) 600 mg BID PO Last administered on 08/04/18 08:47; Admin Dose 600 MG; Start 08/03/18 at 09:00 Nystatin (Nystatin Cr) 1 applic BID TOP Last administered on 08/04/18 08:48; Admin Dose 1 APPLIC; Start 08/03/18 at 09:00 Amikacin Sulfate (Amikacin Iv Per Pharmacy) AMIKACIN PER PHARMACY NOTE XX ; Start 08/03/18 at 11:30 Insulin Aspart (Novolog Insulin Pen) NOVOLOG *MILD* ALGORI... AC MEALS AND BEDTIME SC ; Start 08/03/18 at 17:25 Linagliptin (Tradjenta) 5 mg DAILY PO Last administered on 08/04/18 08:47; Admin Dose 5 MG; Start 08/04/18 at 09:00 Diagnostic Test (Pha) (Accu-Chek) 1 ea 02 XX Last administered on 08/04/18 01:59; Admin Dose 1 EA; Start 08/04/18 at 02:00 Insulin Glargine (Lantus) 18 units DAILY@2000 SC Last administered on 08/03/18 22:37; Admin Dose 18 UNITS; Start 08/03/18 at 20:00 Insulin Aspart (Novolog Insulin Pen) 10 unit WITH MEALS SC Last administered on 4/20/19at 11:52; Admin Dose 10 UNIT; Start 08/03/18 at 17:55 Acetylcysteine (Mucomyst) 2 ml Q8H RESP THERAPY NEB Last administered on 08/04/18at 16:44; Admin Dose 2 ML; Start 08/04/18 at 08:00 Collagenase (Santyl) 1 applic DAILY TOP ; Start 08/04/18 at 09:00 Enoxaparin Sodium (Lovenox) 110 mg Q24H SC Last administered on 08/04/18at 10:13; Admin Dose 110 MG; Start 08/04/18 at 09:00 Amikacin Sulfate 500 mg/Sodium Chloride 102 ml @ 101.6 mls/ hr Q48H IVPB ; Start 08/05/18 at 20:00 MITRA SRIVASTAVA Aug 04, 2018 17:16
[2018-08-04] MEDS: INSULIN GLARGINE [LANTus] (100 UNITS/ML) SYG SC SCH (21:12)
[2018-08-05] VITALS (22 sets, daily range): BP systolic 132–158; BP diastolic 62–76; PULSE 55–96; RESP 14–24
[2018-08-05] MEDS: ALBUTEROL 0.083% (NEB) 2.5 MG/3 ML AMP NEB PRN ×2 (00:20→13:39)
[2018-08-05] MEDS: ACETYLCYSTEINE 20% 4 ML VIAL NEB SCH ×4 (00:21→23:14)
[2018-08-05] MEDS: CHLORHEXIDINE GLUCONATE 15 ML UD CUP MM SCH ×2 (01:26→12:48)
[2018-08-05] MEDS: ACCU-CHEK XX SCH (01:28)
[2018-08-05] MEDS: INSULIN ASPART [NOVOLOG] 3 ML PEN SC SCH ×7 (07:25→20:29)
--- NOTE | 2018-08-05 08:32 | CONS ---
Assessment/Plan Assessment/Plan Assessment/Plan (Daily) Ventilator setting; AC of 14, tidal volume 500, PEEP of 5, 40% FiO2. Assessment and recommendations; 1. Patient with history of VDR F admitted for possible right-sided VATS. History of recent extensive right-sided pneumonia, status post 2 bronchoscopies. 2. History of hypertension and cardiac arrhythmia. 3. Chronic anemia. Status post blood transfusion yesterday. Continue current supportive care. Continue current antimicrobial regimen. Patient to be evaluated by cardiothoracic surgery for possible VATS. Consultation Date/Type/Reason Admit Date/Time Aug 02, 2018 at 22:00 Initial Consult Date 08/03/18 Type of Consult Pulmonary Requesting Provider: DEJUAN ORTIZ MD, [facility] Date/Time of Note DATE: 08/05/18 TIME: 08:30 24 HR Interval Summary Free Text/Dictation Patient's condition is stable overall. Remains awake and alert. Has remained hemodynamically stable. General exam; elderly male, on ventilator via tracheostomy, awake and alert. Currently in no distress. Exam/Review of Systems Exam Vitals Vital Signs Date Temp Pulse Resp B/P (MAP) Pulse Ox O2 O2 Flow FiO2 Time Delivery Rate 08/05/18 86 14 98 40 07:39 08/05/18 98.7 135/76 07:36 (95) 08/04/18 Mechanical 15:44 Ventilator Intake and Output 08/04/18 08/04/18 08/05/18 1515:00 23:00 07:00 IntakeIntake Total 900 ml 250 ml OutputOutput Total 1800 ml 250 ml BalanceBalance -900 ml 0 ml Exam H EENT exam; supple neck, no JVD. No lymphadenopathy. Midline trachea. No thyromegaly. Patient is edentulous. Tracheostomy in place. Chest exam; diminished breath sounds right lung. Left lung is fairly clear. S1-S2 audible, no murmurs. Regular rhythm. Abdomen exam; soft, G-tube in place. Bowel sounds audible. No organomegaly. Extremity exam; no peripheral edema clubbing. [employer] exam; no focal deficit. Results Result Diagram: 08/05/18 0636 08/05/18 0636 Results 24hrs Laboratory Tests Test 08/04/18 11:47 08/04/18 17:30 08/04/18 20:55 08/05/18 01:28 Bedside Glucose 98 121 131 126 Test 08/05/18 06:36 08/05/18 08:19 White Blood Count 16.3 H Red Blood Count 3.28 L Hemoglobin 8.2 L Hematocrit 26.6 L Mean Corpuscular 81.1 L Volume Mean Corpuscular 25.0 L Hemoglobin Mean Corpuscular 30.8 L Hemoglobin Concent Red Cell 16.7 H Distribution Width Platelet Count 250 Mean Platelet Volume 8.7 Immature 1.300 H Granulocytes % Neutrophils % 81.6 H Lymphocytes % 6.6 L Monocytes % 9.2 Eosinophils % 0.9 Basophils % 0.4 Nucleated Red Blood 0.0 Cells % Immature 0.220 H Granulocytes # Neutrophils # 13.3 H Lymphocytes # 1.1 Monocytes # 1.5 H Eosinophils # 0.1 Basophils # 0.1 Nucleated Red Blood 0.0 Cells # Sodium Level 136 Potassium Level 5.0 Chloride Level 105 Carbon Dioxide Level 25 Anion Gap 6 Blood Urea Nitrogen 30 H Creatinine 2.22 H Est Glomerular 29 L Filtrat Rate mL/min Glucose Level 85 Calcium Level 8.4 Total Bilirubin 0.2 Direct Bilirubin 0.00 Indirect Bilirubin 0.2 Aspartate Amino 24 Transf (AST/SGOT) Alanine 15 Aminotransferase (AL T/SGPT) Alkaline Phosphatase 226 H Total Protein 6.1 Albumin 2.4 L Globulin 3.70 H Albumin/Globulin 0.64 Ratio Bedside Glucose 100 Medications Medication Current Medications IV Flush (NS 3 ml) 3 ml PER PROTOCOL IV ; Start 08/03/18 at 00:00 Ondansetron HCl (Zofran Inj) 4 mg Q6H PRN IV NAUSEA/VOMITING Last administered on 08/03/18at 03:48; Admin Dose 4 MG; Start 08/03/18 at 00:00 Nitroglycerin (Nitroglycerin (Sl Tab) 0.4 Mg) 1 tab Q5M PRN SL .CHEST PAIN; Start 08/03/18 at 00:00 Acetaminophen (Tylenol Tab) 650 mg Q6H PRN PO .PAIN 1-3 OR TEMP Last administered on 08/04/18at 03:49; Admin Dose 650 MG; Start 08/03/18 at 00:00 Morphine Sulfate (morphine) 2 mg Q4H PRN IV .PAIN 7-10 Last administered on 08/04/18at 03:49; Admin Dose 2 MG; Start 08/03/18 at 00:00 Docusate Sodium (Colace) 100 mg Q12H PRN PO .CONSTIPATION; Start 08/03/18 at 00:00 Bisacodyl (Dulcolax) 5 mg DAILY PRN PO .CONSTIPATION; Start 08/03/18 at 00:00 Ascorbic Acid (Vitamin C) 500 mg DAILY PO Last administered on 08/04/18 08:47; Admin Dose 500 MG; Start 08/03/18 at 09:00 Chlorhexidine Gluconate (Peridex) 15 ml Q12H MM Last administered on 08/05/18 01:26; Admin Dose 15 ML; Start 08/03/18 at 00:00 Digoxin (Digoxin) 0.25 mg DAILY PO Last administered on 08/04/18 08:46; Admin Dose 0.25 MG; Start 08/03/18 at 09:00 Ferrous Sulfate (Ferrous Sulfate (Ec)) 325 mg DAILY PO Last administered on 08/04/18 08:46; Admin Dose 325 MG; Start 08/03/18 at 09:00 Pantoprazole (Protonix Tab) 40 mg AC BREAKFAST PO Last administered on 08/04/18 08:46; Admin Dose 40 MG; Start 08/03/18 at 07:25 Sucralfate (Carafate) 1 gm AC MEALS AND BEDTIME PO Last administered on 08/04/18 20:56; Admin Dose 1 GM; Start 08/03/18 at 07:25 Albuterol (Proventil 0.083% (Neb)) 2.5 mg Q4H RESP THERAPY PRN NEB TRACHEOSTOMY Last administered on 08/05/18 00:20; Admin Dose 2.5 MG; Start 08/02/18 at 23:45 Multivitamins/ Minerals (Theragran-M) 1 tab DAILY PO Last administered on 08/04/18 08:47; Admin Dose 1 TAB; Start 08/03/18 at 09:00 Miscellaneous Information 1 ea NOTE XX ; Start 08/02/18 at 23:45 Glucose (Glutose) 15 gm Q15M PRN PO DECREASED GLUCOSE; Start 08/02/18 at 23:45 Glucose (Glutose) 22.5 gm Q15M PRN PO DECREASED GLUCOSE; Start 08/02/18 at 23:45 Dextrose (D50w Syringe) 25 ml Q15M PRN IV DECREASED GLUCOSE; Start 08/02/18 at 23:45 Dextrose (D50w Syringe) 50 ml Q15M PRN IV DECREASED GLUCOSE; Start 08/02/18 at 23:45 Glucagon (Glucagen) 1 mg Q15M PRN IM DECREASED GLUCOSE; Start 08/02/18 at 23:45 Glucose (Glutose) 15 gm Q15M PRN BUCCAL DECREASED GLUCOSE; Start 08/02/18 at 23:45 Simethicone (Mylicon) 80 mg Q8H PRN PO DISTENSION/GAS/BLOATING Last administered on 08/04/18 01:55; Admin Dose 80 MG; Start 08/03/18 at 04:30 Amlodipine Besylate (Norvasc) 5 mg DAILY PO Last administered on 08/04/18 08:47; Admin Dose 5 MG; Start 08/03/18 at 09:00 Fluconazole (Diflucan) 100 mg DAILY PO Last administered on 08/04/18 08:46; Admin Dose 100 MG; Start 08/03/18 at 09:00 Linezolid (Zyvox) 600 mg BID PO Last administered on 08/04/18 20:56; Admin Dose 600 MG; Start 08/03/18 at 09:00 Nystatin (Nystatin Cr) 1 applic BID TOP Last administered on 08/04/18 20:57; Admin Dose 1 APPLIC; Start 08/03/18 at 09:00 Amikacin Sulfate (Amikacin Iv Per Pharmacy) AMIKACIN PER PHARMACY NOTE XX ; Start 08/03/18 at 11:30 Insulin Aspart (Novolog Insulin Pen) NOVOLOG *MILD* ALGORI... AC MEALS AND BEDTIME SC ; Start 08/03/18 at 17:25 Linagliptin (Tradjenta) 5 mg DAILY PO Last administered on 08/04/18 08:47; Admin Dose 5 MG; Start 08/04/18 at 09:00 Diagnostic Test (Pha) (Accu-Chek) 1 ea 02 XX Last administered on 08/05/18at 01:28; Admin Dose 1 EA; Start 08/04/18 at 02:00 Insulin Glargine (Lantus) 18 units DAILY@2000 SC Last administered on 08/04/18at 21:12; Admin Dose 18 UNITS; Start 08/03/18 at 20:00 Insulin Aspart (Novolog Insulin Pen) 10 unit WITH MEALS SC Last administered on 08/04/18at 17:41; Admin Dose 10 UNIT; Start 08/03/18 at 17:55 Acetylcysteine (Mucomyst) 2 ml Q8H RESP THERAPY NEB Last administered on 08/05/18at 00:21; Admin Dose 2 ML; Start 08/04/18 at 08:00 Collagenase (Santyl) 1 applic DAILY TOP ; Start 08/04/18 at 09:00 Enoxaparin Sodium (Lovenox) 110 mg Q24H SC Last administered on 08/04/18at 10:13; Admin Dose 110 MG; Start 08/04/18 at 09:00 Amikacin Sulfate 500 mg/Sodium Chloride 102 ml @ 101.6 mls/ hr Q48H IVPB ; Start 08/05/18 at 20:00 WARREN HOLLIS Aug 05, 2018 08:32
[2018-08-05] MEDS: FLUCONAZOLE 100 MG TAB PO SCH (09:03)
[2018-08-05] MEDS: SUCRALFATE 1 GM TAB PO SCH ×4 (09:03→20:29)
[2018-08-05] MEDS: AMLODIPINE 5 MG TAB PO SCH (09:03)
[2018-08-05] MEDS: PANTOPRAZOLE (EC) 40 MG TAB PO SCH (09:03)
[2018-08-05] MEDS: LINAGLIPTIN 5 MG TABLET PO SCH (09:03)
[2018-08-05] MEDS: ZYVOX 600 MG TAB PO SCH ×2 (09:03→20:29)
[2018-08-05] MEDS: DIGOXIN 0.25 MG TAB PO SCH (09:04)
[2018-08-05] MEDS: FERROUS SULFATE (EC) 325 MG TAB PO SCH (09:04)
[2018-08-05] MEDS: COLLAGENASE 5 GM (UD JAR) TOP SCH (09:04)
[2018-08-05] MEDS: MULTIVITAMINS/MINERALS TAB PO SCH (09:04)
[2018-08-05] MEDS: ASCORBIC ACID 500 MG TAB PO SCH (09:04)
[2018-08-05] MEDS: NYSTATIN 15 GM CR TOP SCH (09:05)
[2018-08-05] MEDS: ENOXAPARIN 100 MG/ML SYG SC SCH (09:14)
--- NOTE | 2018-08-05 10:59 | PN ---
Date/Time of Note Date/Time of Note DATE: 08/05/18 TIME: 10:57 Assessment/Plan VTE Prophylaxis Risk score (from Ns)>0 risk: 10 SCD applied (from Nsg): Yes Pharmacological prophylaxis: LMWH Lines/Catheters IV Catheter Type (from Nrsg): Mid Line Urinary Cath still in place: No Assessment/Plan Assessment/Plan This is a 68-year-old man with a past medical history of chronic respiratory failure status post trach, who was transferred from [facility] to [facility] for evaluation of loculated empyema ad possible VATS. The patient was a previous resident of [facility], was noted to have a loculated fluid effusion. The patient, after attempted bronchoscopy and post chest-tube without improvement of loculated fluid was subsequently transferred to [facility] for surgical evaluation. #1 acute on chronic hypoxemic and hypercarbic respiratory failure: -Patient is on chronic ventilatory support. -Continue vent management as per pulmonary. #2 Right pulmonary opacification plus infiltrates: -Suspicion likely for large loculated thick pleural effusion, loculated empyema s/p failed bronchoscopy and chest tube -Patient is currently on broad-spectrum antibiotics of Zyvox, fluconazole We will continue antibiotics at the current time. ID consulted -CT surgery has been consulted by pulmonary medicine in regards to possible surgical intervention with a thoracotomy. #3 Paroxysmal atrial fibrillation: -Currently in sinus rhythm. Continue to monitor. -Xarelto on hold at the current time given possibility for surgical intervention. -For now, on renally-dosed therapeutic lovenox. #4 anemia of chronic disease: - Transfuse for Hgb<7 or for symptomatic anemia. #5 Chronic kidney disease stage III r/o FROILAN: -last Cr per notes 2.11, amikacin on hold -nephro consulted, f/u trend and recommendations #6 diabetes mellitus: -no surgery planned, resume diet and pev regimen, -note that patient is being fed orally #7 diastolic CHF, chronic with bilateral lower extremity edema: -continue lasix -may also be related to anasarca from #8 #8 Hepatic cirrhosis: -Chest CT shows possible liver cirrhosis confirmed on USS. f/u hepatitis serologies. #9 DVT GI prophylaxis: lovenox, Protonix Dispo: -spoke with CTS, tentative plan for surgery early next week. -on his assessment though, patient may not require open surgery , but may be able to do well with pigtail and abx, he wants pulmonary to reassess (he was unable to asses prior to transfer as he had no tobias priviledges) -so for now, continue abx, and supportive care, advance diet and await pulmonary's recommendations -Continue to hold Xarelto, but start Lovenox at anticoagulant dosing since patient is likely to get some kind of procedure Result Diagram: 08/05/1836 08/05/1836 Subjective 24 Hr Interval Summary Free Text/Dictation No acute overnight events. Patient complains of new rash on abdomen. Otherwise doing well. Exam/Review of Systems Exam Vitals Vital Signs Date Temp Pulse Resp B/P (MAP) Pulse Ox O2 O2 Flow FiO2 Time Delivery Rate 08/05/18 90 16 100 30 09:30 08/05/18 98.7 135/76 07:36 (95) 08/04/18 Mechanical 15:44 Ventilator Intake and Output 08/04/18 08/04/18 08/05/18 1515:00 23:00 07:00 IntakeIntake Total 900 ml 250 ml OutputOutput Total 1800 ml 250 ml BalanceBalance -900 ml 0 ml Exam General: Obese man lying in bed, deflated trach on vent. HEENT: Atraumatic, normocephalic. Neck: trach to vent Lungs: Mechanical, coarse breath sounds throughout. Heart: Normal S1-S2, Regular rhythm and rate. No murmur, S3, or S4 Abdomen: Soft , obese, nontender, nondistended , bowel sounds are present. Extremities: 2+ bilateral lower extremity edema Neurologic: awake, alert. Able to talk with deflated cuff. Skin: Raised, erythematous macular rash across abdomen. Results Results 24hrs Laboratory Tests Test 08/04/18 11:47 08/04/18 17:30 08/04/18 20:55 08/05/18 01:28 Bedside Glucose 98 121 131 126 Test 08/05/18 06:36 08/05/18 08:19 White Blood Count 16.3 H Red Blood Count 3.28 L Hemoglobin 8.2 L Hematocrit 26.6 L Mean Corpuscular 81.1 L Volume Mean Corpuscular 25.0 L Hemoglobin Mean Corpuscular 30.8 L Hemoglobin Concent Red Cell 16.7 H Distribution Width Platelet Count 250 Mean Platelet Volume 8.7 Immature 1.300 H Granulocytes % Neutrophils % 81.6 H Lymphocytes % 6.6 L Monocytes % 9.2 Eosinophils % 0.9 Basophils % 0.4 Nucleated Red Blood 0.0 Cells % Immature 0.220 H Granulocytes # Neutrophils # 13.3 H Lymphocytes # 1.1 Monocytes # 1.5 H Eosinophils # 0.1 Basophils # 0.1 Nucleated Red Blood 0.0 Cells # Sodium Level 136 Potassium Level 5.0 Chloride Level 105 Carbon Dioxide Level 25 Anion Gap 6 Blood Urea Nitrogen 30 H Creatinine 2.22 H Est Glomerular 29 L Filtrat Rate mL/min Glucose Level 85 Calcium Level 8.4 Total Bilirubin 0.2 Direct Bilirubin 0.00 Indirect Bilirubin 0.2 Aspartate Amino 24 Transf (AST/SGOT) Alanine 15 Aminotransferase (AL T/SGPT) Alkaline Phosphatase 226 H Total Protein 6.1 Albumin 2.4 L Globulin 3.70 H Albumin/Globulin 0.64 Ratio Bedside Glucose 100 Medications Medication Current Medications IV Flush (NS 3 ml) 3 ml PER PROTOCOL IV ; Start 08/03/18 at 00:00 Ondansetron HCl (Zofran Inj) 4 mg Q6H PRN IV NAUSEA/VOMITING Last administered on 08/03/18at 03:48; Admin Dose 4 MG; Start 08/03/18 at 00:00 Nitroglycerin (Nitroglycerin (Sl Tab) 0.4 Mg) 1 tab Q5M PRN SL .CHEST PAIN; Start 08/03/18 at 00:00 Acetaminophen (Tylenol Tab) 650 mg Q6H PRN PO .PAIN 1-3 OR TEMP Last administered on 08/04/18at 03:49; Admin Dose 650 MG; Start 08/03/18 at 00:00 Morphine Sulfate (morphine) 2 mg Q4H PRN IV .PAIN 7-10 Last administered on 08/04/18 03:49; Admin Dose 2 MG; Start 08/03/18 at 00:00 Docusate Sodium (Colace) 100 mg Q12H PRN PO .CONSTIPATION; Start 08/03/18 at 00:00 Bisacodyl (Dulcolax) 5 mg DAILY PRN PO .CONSTIPATION; Start 08/03/18 at 00:00 Ascorbic Acid (Vitamin C) 500 mg DAILY PO Last administered on 08/05/18at 09:04; Admin Dose 500 MG; Start 08/03/18 at 09:00 Chlorhexidine Gluconate (Peridex) 15 ml Q12H MM Last administered on 08/05/18 01:26; Admin Dose 15 ML; Start 08/03/18 at 00:00 Digoxin (Digoxin) 0.25 mg DAILY PO Last administered on 08/05/18 09:04; Admin Dose 0.25 MG; Start 08/03/18 at 09:00 Ferrous Sulfate (Ferrous Sulfate (Ec)) 325 mg DAILY PO Last administered on 08/05/18 09:04; Admin Dose 325 MG; Start 08/03/18 at 09:00 Pantoprazole (Protonix Tab) 40 mg AC BREAKFAST PO Last administered on 08/05/18 09:03; Admin Dose 40 MG; Start 08/03/18 at 07:25 Sucralfate (Carafate) 1 gm AC MEALS AND BEDTIME PO Last administered on 08/05/18 09:03; Admin Dose 1 GM; Start 08/03/18 at 07:25 Albuterol (Proventil 0.083% (Neb)) 2.5 mg Q4H RESP THERAPY PRN NEB TRACHEOSTOMY Last administered on 08/05/18 00:20; Admin Dose 2.5 MG; Start 08/02/18 at 23:45 Multivitamins/ Minerals (Theragran-M) 1 tab DAILY PO Last administered on 08/05/18 09:04; Admin Dose 1 TAB; Start 08/03/18 at 09:00 Miscellaneous Information 1 ea NOTE XX ; Start 08/02/18 at 23:45 Glucose (Glutose) 15 gm Q15M PRN PO DECREASED GLUCOSE; Start 08/02/18 at 23:45 Glucose (Glutose) 22.5 gm Q15M PRN PO DECREASED GLUCOSE; Start 08/02/18 at 23:45 Dextrose (D50w Syringe) 25 ml Q15M PRN IV DECREASED GLUCOSE; Start 08/02/18 at 23:45 Dextrose (D50w Syringe) 50 ml Q15M PRN IV DECREASED GLUCOSE; Start 08/02/18 at 23:45 Glucagon (Glucagen) 1 mg Q15M PRN IM DECREASED GLUCOSE; Start 08/02/18 at 23:45 Glucose (Glutose) 15 gm Q15M PRN BUCCAL DECREASED GLUCOSE; Start 08/02/18 at 23:45 Simethicone (Mylicon) 80 mg Q8H PRN PO DISTENSION/GAS/BLOATING Last administered on 08/04/18at 01:55; Admin Dose 80 MG; Start 08/03/18 at 04:30 Amlodipine Besylate (Norvasc) 5 mg DAILY PO Last administered on 08/05/18 09:03; Admin Dose 5 MG; Start 08/03/18 at 09:00 Fluconazole (Diflucan) 100 mg DAILY PO Last administered on 08/05/18 09:03; Admin Dose 100 MG; Start 08/03/18 at 09:00 Linezolid (Zyvox) 600 mg BID PO Last administered on 08/05/18 09:03; Admin Dose 600 MG; Start 08/03/18 at 09:00 Nystatin (Nystatin Cr) 1 applic BID TOP Last administered on 08/05/18 09:05; Admin Dose 1 APPLIC; Start 08/03/18 at 09:00 Amikacin Sulfate (Amikacin Iv Per Pharmacy) AMIKACIN PER PHARMACY NOTE XX ; S tart 08/03/18 at 11:30 Insulin Aspart (Novolog Insulin Pen) NOVOLOG *MILD* ALGORI... AC MEALS AND BE DTIME SC ; Start 08/03/18 at 17:25 Linagliptin (Tradjenta) 5 mg DAILY PO Last administered on 08/05/18 09:03; Admin Dose 5 MG; Start 08/04/18 at 09:00 Diagnostic Test (Pha) (Accu-Chek) 1 ea 02 XX Last administered on 08/05/18at 01:28; Admin Dose 1 EA; Start 08/04/18 at 02:00 Insulin Glargine (Lantus) 18 units DAILY@2000 SC Last administered on 08/04/18 21:12; Admin Dose 18 UNITS; Start 08/03/18 at 20:00 Insulin Aspart (Novolog Insulin Pen) 10 unit WITH MEALS SC Last administered on 08/05/18 09:13; Admin Dose 10 UNIT; Start 08/03/18 at 17:55 Acetylcysteine (Mucomyst) 2 ml Q8H RESP THERAPY NEB Last administered on 08/05/18at 00:21; Admin Dose 2 ML; Start 08/04/18 at 08:00 Collagenase (Santyl) 1 applic DAILY TOP Last administered on 08/05/18at 09:04; Admin Dose 1 APPLIC; Start 08/04/18 at 09:00 Enoxaparin Sodium (Lovenox) 110 mg Q24H SC Last administered on 08/05/18at 09:14; Admin Dose 110 MG; Start 08/04/18 at 09:00 Amikacin Sulfate 500 mg/Sodium Chloride 102 ml @ 101.6 mls/ hr Q48H IVPB ; Start 08/05/18 at 20:00 Diphenhydramine HCl (Benadryl) 25 mg Q6H PRN IV rash or itching; Start 08/05/18 at 11:00 LALITO CENTENO MD Aug 05, 2018 10:59
[2018-08-05] MEDS ORDERED: DIPHENHYDRAMINE 50 MG INJ IV PRN (11:00)
--- NOTE | 2018-08-05 13:15 | CONS ---
Assessment/Plan Assessment/Plan Assessment/Plan (Daily) 1. Chronic kidney disease with previous baseline creatinine around 2.2 to 2.3 mg/dL. The patient's renal function currently appears to be near or at baseline. Would otherwise continue current treatment plan, supportive care, renally dose all meds, avoid nephrotoxins. 2. Mineral bone disorder, monitor calcium and phosphorus levels. 3. History of diastolic heart failure. s/p lasix. 4. Ventilator dependent respiratory failure. Vent settings and ABG was reviewed. Continue to monitor. Follow up with pulmonary. 5. Right pulmonary opacification plus infiltrates, possible loculated empyema. The patient is currently on broad spectrum antibiotics. CT surgery consult has been placed for evaluation. Possible thoracotomy. Continue to monitor. 6. Paroxysmal atrial fibrillation, currently in sinus rhythm. Continue medical management. Anticoagulation has been held. 7. Diabetes. Continue current insulin regimen. 8. Sepsis, questionable history of liver cirrhosis. Continue to monitor. 9. Lower extremity edema, etiology may be secondary to congestive heart failure, cirrhosis. s/p lasix. off ivf. Consultation Date/Type/Reason Admit Date/Time Aug 02, 2018 at 22:00 Initial Consult Date 08/03/18 Requesting Provider: DEJUAN ORTIZ MD, [facility] Date/Time of Note DATE: 08/05/18 TIME: 13:14 24 HR Interval Summary Free Text/Dictation overnight issues reviewed no fever d/w rn gen nad cv rrr pulm ctab abd soft, nd, nt +bs ext: no edema Exam/Review of Systems Exam Vitals Vital Signs Date Temp Pulse Resp B/P (MAP) Pulse Ox O2 O2 Flow FiO2 Time Delivery Rate 08/05/18 86 16 99 30 11:40 08/05/18 99.4 158/69 11:33 (98) 08/04/18 Mechanical 15:44 Ventilator Intake and Output 08/04/18 08/04/18 08/05/18 1515:00 23:00 07:00 IntakeIntake Total 900 ml 250 ml OutputOutput Total 1800 ml 250 ml BalanceBalance -900 ml 0 ml Results Result Diagram: 08/05/18 0636 08/05/18 0636 Results 24hrs Laboratory Tests Test 08/04/18 17:30 08/04/18 20:55 08/05/18 01:28 08/05/18 06:36 Bedside Glucose 121 131 126 White Blood Count 16.3 H Red Blood Count 3.28 L Hemoglobin 8.2 L Hematocrit 26.6 L Mean Corpuscular 81.1 L Volume Mean Corpuscular 25.0 L Hemoglobin Mean Corpuscular 30.8 L Hemoglobin Concent Red Cell 16.7 H Distribution Width Platelet Count 250 Mean Platelet Volume 8.7 Immature 1.300 H Granulocytes % Neutrophils % 81.6 H Lymphocytes % 6.6 L Monocytes % 9.2 Eosinophils % 0.9 Basophils % 0.4 Nucleated Red Blood 0.0 Cells % Immature 0.220 H Granulocytes # Neutrophils # 13.3 H Lymphocytes # 1.1 Monocytes # 1.5 H Eosinophils # 0.1 Basophils # 0.1 Nucleated Red Blood 0.0 Cells # Sodium Level 136 Potassium Level 5.0 Chloride Level 105 Carbon Dioxide Level 25 Anion Gap 6 Blood Urea Nitrogen 30 H Creatinine 2.22 H Est Glomerular 29 L Filtrat Rate mL/min Glucose Level 85 Calcium Level 8.4 Total Bilirubin 0.2 Direct Bilirubin 0.00 Indirect Bilirubin 0.2 Aspartate Amino 24 Transf (AST/SGOT) Alanine 15 Aminotransferase (AL T/SGPT) Alkaline Phosphatase 226 H Total Protein 6.1 Albumin 2.4 L Globulin 3.70 H Albumin/Globulin 0.64 Ratio Test 08/05/18 08:19 08/05/18 12:25 Bedside Glucose 100 107 Medications Medication Current Medications IV Flush (NS 3 ml) 3 ml PER PROTOCOL IV ; Start 08/03/18 at 00:00 Ondansetron HCl (Zofran Inj) 4 mg Q6H PRN IV NAUSEA/VOMITING Last administered on 08/03/18at 03:48; Admin Dose 4 MG; Start 08/03/18 at 00:00 Nitroglycerin (Nitroglycerin (Sl Tab) 0.4 Mg) 1 tab Q5M PRN SL .CHEST PAIN; Start 08/03/18 at 00:00 Acetaminophen (Tylenol Tab) 650 mg Q6H PRN PO .PAIN 1-3 OR TEMP Last administered on 08/04/18at 03:49; Admin Dose 650 MG; Start 08/03/18 at 00:00 Morphine Sulfate (morphine) 2 mg Q4H PRN IV .PAIN 7-10 Last administered on 08/04/18at 03:49; Admin Dose 2 MG; Start 08/03/18 at 00:00 Docusate Sodium (Colace) 100 mg Q12H PRN PO .CONSTIPATION; Start 08/03/18 at 00:00 Bisacodyl (Dulcolax) 5 mg DAILY PRN PO .CONSTIPATION; Start 08/03/18 at 00:00 Ascorbic Acid (Vitamin C) 500 mg DAILY PO Last administered on 08/05/18 09:04; Admin Dose 500 MG; Start 08/03/18 at 09:00 Chlorhexidine Gluconate (Peridex) 15 ml Q12H MM Last administered on 08/05/18 12:48; Admin Dose 15 ML; Start 08/03/18 at 00:00 Digoxin (Digoxin) 0.25 mg DAILY PO Last administered on 08/05/18 09:04; Admin Dose 0.25 MG; Start 08/03/18 at 09:00 Ferrous Sulfate (Ferrous Sulfate (Ec)) 325 mg DAILY PO Last administered on 08/05/18 09:04; Admin Dose 325 MG; Start 08/03/18 at 09:00 Pantoprazole (Protonix Tab) 40 mg AC BREAKFAST PO Last administered on 08/05/18 09:03; Admin Dose 40 MG; Start 08/03/18 at 07:25 Sucralfate (Carafate) 1 gm AC MEALS AND BEDTIME PO Last administered on 08/05/18 12:48; Admin Dose 1 GM; Start 08/03/18 at 07:25 Albuterol (Proventil 0.083% (Neb)) 2.5 mg Q4H RESP THERAPY PRN NEB TRACHEOSTOMY Last administered on 08/05/18 00:20; Admin Dose 2.5 MG; Start 08/02/18 at 23:45 Multivitamins/ Minerals (Theragran-M) 1 tab DAILY PO Last administered on 09:04; Admin Dose 1 TAB; Start 08/03/18 at 09:00 Miscellaneous Information 1 ea NOTE XX ; Start 08/02/18 at 23:45 Glucose (Glutose) 15 gm Q15M PRN PO DECREASED GLUCOSE; Start 08/02/18 at 23:45 Glucose (Glutose) 22.5 gm Q15M PRN PO DECREASED GLUCOSE; Start 08/02/18 at 23:45 Dextrose (D50w Syringe) 25 ml Q15M PRN IV DECREASED GLUCOSE; Start 08/02/18 at 23:45 Dextrose (D50w Syringe) 50 ml Q15M PRN IV DECREASED GLUCOSE; Start 08/02/18 at 23:45 Glucagon (Glucagen) 1 mg Q15M PRN IM DECREASED GLUCOSE; Start 08/02/18 at 23:45 Glucose (Glutose) 15 gm Q15M PRN BUCCAL DECREASED GLUCOSE; Start 08/02/18 at 23:45 Simethicone (Mylicon) 80 mg Q8H PRN PO DISTENSION/GAS/BLOATING Last administer ed on 08/04/18 01:55; Admin Dose 80 MG; Start 08/03/18 at 04:30 Amlodipine Besylate (Norvasc) 5 mg DAILY PO Last administered on 08/05/18 09:03; Admin Dose 5 MG; Start 08/03/18 at 09:00 Fluconazole (Diflucan) 100 mg DAILY PO Last administered on 08/05/18 09:03; Admin Dose 100 MG; Start 08/03/18 at 09:00 Linezolid (Zyvox) 600 mg BID PO Last administered on 08/05/18 09:03; Admin Dose 600 MG; Start 08/03/18 at 09:00 Nystatin (Nystatin Cr) 1 applic BID TOP Last administered on 08/05/18 09:05; Admin Dose 1 APPLIC; Start 08/03/18 at 09:00 Amikacin Sulfate (Amikacin Iv Per Pharmacy) AMIKACIN PER PHARMACY NOTE XX ; Start 08/03/18 at 11:30 Insulin Aspart (Novolog Insulin Pen) NOVOLOG *MILD* ALGORI... AC MEALS AND BEDTIME SC ; Start 08/03/18 at 17:25 Linagliptin (Tradjenta) 5 mg DAILY PO Last administered on 08/05/18 09:03; Admin Dose 5 MG; Start 08/04/18 at 09:00 Diagnostic Test (Pha) (Accu-Chek) 1 ea 02 XX Last administered on 08/05/18at 01:28; Admin Dose 1 EA; Start 08/04/18 at 02:00 Insulin Glargine (Lantus) 18 units DAILY@2000 SC Last administered on 08/04/18at 21:12; Admin Dose 18 UNITS; Start 08/03/18 at 20:00 Insulin Aspart (Novolog Insulin Pen) 10 unit WITH MEALS SC Last administered on 08/05/18at 12:30; Admin Dose 10 UNIT; Start 08/03/18 at 17:55 Acetylcysteine (Mucomyst) 2 ml Q8H RESP THERAPY NEB Last administered on 08/05/18at 00:21; Admin Dose 2 ML; Start 08/04/18 at 08:00 Collagenase (Santyl) 1 applic DAILY TOP Last administered on 08/05/18at 09:04; Admin Dose 1 APPLIC; Start 08/04/18 at 09:00 Enoxaparin Sodium (Lovenox) 110 mg Q24H SC Last administered on 08/05/18at 09:14; Admin Dose 110 MG; Start 08/04/18 at 09:00 Amikacin Sulfate 500 mg/Sodium Chloride 102 ml @ 101.6 mls/ hr Q48H IVPB ; Start 08/05/18 at 20:00 Diphenhydramine HCl (Benadryl) 25 mg Q6H PRN IV rash or itching; Start 08/05/18 at 11:00 MEETA CUMMINS MD Aug 05, 2018 13:15
--- NOTE | 2018-08-05 15:32 | CONS ---
Assessment/Plan Assessment/Plan Hospital Course (Demo Recall) Type 2 DM -well controlled -continue Lantus 18 units sc daily -continue novolog 10 units TIDAC and tradjenta 5mg daily -continue mild dose novolog correction scale AC and HS -check FS AC and HS Consultation Date/Type/Reason Admit Date/Time Aug 02, 2018 at 22:00 Initial Consult Date 08/03/18 Requesting Provider: DEJUAN ORTIZ MD, [facility] Date/Time of Note DATE: 08/05/18 TIME: 15:31 24 HR Interval Summary Free Text/Dictation Patient seen and examined at bedside. No acute events noted overnight. FS readings are in range. Exam/Review of Systems Exam Vitals Vital Signs Date Temp Pulse Resp B/P (MAP) Pulse Ox O2 O2 Flow FiO2 Time Delivery Rate 08/05/18 81 12:01 08/05/18 16 99 30 11:40 08/05/18 99.4 158/69 11:33 (98) 08/04/18 Mechanical 15:44 Ventilator Intake and Output 08/04/18 08/04/18 08/05/18 1515:00 23:00 07:00 IntakeIntake Total 900 ml 250 ml OutputOutput Total 1800 ml 250 ml BalanceBalance -900 ml 0 ml Exam General: Comfortable in appearance, not in acute distress. Skin appropriate for ethnicity Eye: Extraocular movements are intact, Normal conjunctiva. HENT: Normocephalic, atraumatic. Trach intact Respiratory: Respirations are non-labored, Breath sounds are equal, Symmetrical chest wall expansion. Cardiovascular: S1, S2. No murmur. 2+ bilateral lower extremity pitting edema Gastrointestinal: Soft, Non-tender, Non-distended, Normal bowel sounds. Integumentary: Warm to touch. Neurologic: Alert and awake Results Result Diagram: 08/05/18 0636 08/05/18 0636 Results 24hrs Laboratory Tests Test 08/04/18 17:30 08/04/18 20:55 08/05/18 01:28 08/05/18 06:36 Bedside Glucose 121 131 126 White Blood Count 16.3 H Red Blood Count 3.28 L Hemoglobin 8.2 L Hematocrit 26.6 L Mean Corpuscular 81.1 L Volume Mean Corpuscular 25.0 L Hemoglobin Mean Corpuscular 30.8 L Hemoglobin Concent Red Cell 16.7 H Distribution Width Platelet Count 250 Mean Platelet Volume 8.7 Immature 1.300 H Granulocytes % Neutrophils % 81.6 H Lymphocytes % 6.6 L Monocytes % 9.2 Eosinophils % 0.9 Basophils % 0.4 Nucleated Red Blood 0.0 Cells % Immature 0.220 H Granulocytes # Neutrophils # 13.3 H Lymphocytes # 1.1 Monocytes # 1.5 H Eosinophils # 0.1 Basophils # 0.1 Nucleated Red Blood 0.0 Cells # Sodium Level 136 Potassium Level 5.0 Chloride Level 105 Carbon Dioxide Level 25 Anion Gap 6 Blood Urea Nitrogen 30 H Creatinine 2.22 H Est Glomerular 29 L Filtrat Rate mL/min Glucose Level 85 Calcium Level 8.4 Total Bilirubin 0.2 Direct Bilirubin 0.00 Indirect Bilirubin 0.2 Aspartate Amino 24 Transf (AST/SGOT) Alanine 15 Aminotransferase (AL T/SGPT) Alkaline Phosphatase 226 H Total Protein 6.1 Albumin 2.4 L Globulin 3.70 H Albumin/Globulin 0.64 Ratio Test 08/05/18 08:19 08/05/18 12:25 Bedside Glucose 100 107 Medications Medication Current Medications IV Flush (NS 3 ml) 3 ml PER PROTOCOL IV ; Start 08/03/18 at 00:00 Ondansetron HCl (Zofran Inj) 4 mg Q6H PRN IV NAUSEA/VOMITING Last administered on 08/03/18at 03:48; Admin Dose 4 MG; Start 08/03/18 at 00:00 Nitroglycerin (Nitroglycerin (Sl Tab) 0.4 Mg) 1 tab Q5M PRN SL .CHEST PAIN; Start 08/03/18 at 00:00 Acetaminophen (Tylenol Tab) 650 mg Q6H PRN PO .PAIN 1-3 OR TEMP Last administered on 08/04/18at 03:49; Admin Dose 650 MG; Start 08/03/18 at 00:00 Morphine Sulfate (morphine) 2 mg Q4H PRN IV .PAIN 7-10 Last administered on 08/04/18 03:49; Admin Dose 2 MG; Start 08/03/18 at 00:00 Docusate Sodium (Colace) 100 mg Q12H PRN PO .CONSTIPATION; Start 08/03/18 at 00:00 Bisacodyl (Dulcolax) 5 mg DAILY PRN PO .CONSTIPATION; Start 08/03/18 at 00:00 Ascorbic Acid (Vitamin C) 500 mg DAILY PO Last administered on 08/05/18 09:04; Admin Dose 500 MG; Start 08/03/18 at 09:00 Chlorhexidine Gluconate (Peridex) 15 ml Q12H MM Last administered on 08/05/18 12:48; Admin Dose 15 ML; Start 08/03/18 at 00:00 Digoxin (Digoxin) 0.25 mg DAILY PO Last administered on 08/05/18 09:04; Admin Dose 0.25 MG; Start 08/03/18 at 09:00 Ferrous Sulfate (Ferrous Sulfate (Ec)) 325 mg DAILY PO Last administered on 08/05/18 09:04; Admin Dose 325 MG; Start 08/03/18 at 09:00 Pantoprazole (Protonix Tab) 40 mg AC BREAKFAST PO Last administered on 08/05/18 09:03; Admin Dose 40 MG; Start 08/03/18 at 07:25 Sucralfate (Carafate) 1 gm AC MEALS AND BEDTIME PO Last administered on 08/05/18 12:48; Admin Dose 1 GM; Start 08/03/18 at 07:25 Albuterol (Proventil 0.083% (Neb)) 2.5 mg Q4H RESP THERAPY PRN NEB TRACHEOSTOMY Last administered on 08/05/18 13:39; Admin Dose 2.5 MG; Start 08/02/18 at 23:45 Multivitamins/ Minerals (Theragran-M) 1 tab DAILY PO Last administered on 08/05/18 09:04; Admin Dose 1 TAB; Start 08/03/18 at 09:00 Miscellaneous Information 1 ea NOTE XX ; Start 08/02/18 at 23:45 Glucose (Glutose) 15 gm Q15M PRN PO DECREASED GLUCOSE; Start 08/02/18 at 23:45 Glucose (Glutose) 22.5 gm Q15M PRN PO DECREASED GLUCOSE; Start 08/02/18 at 23:45 Dextrose (D50w Syringe) 25 ml Q15M PRN IV DECREASED GLUCOSE; Start 08/02/18 at 23:45 Dextrose (D50w Syringe) 50 ml Q15M PRN IV DECREASED GLUCOSE; Start 08/02/18 at 23:45 Glucagon (Glucagen) 1 mg Q15M PRN IM DECREASED GLUCOSE; Start 08/02/18 at 23:45 Glucose (Glutose) 15 gm Q15M PRN BUCCAL DECREASED GLUCOSE; Start 08/02/18 at 23:45 Simethicone (Mylicon) 80 mg Q8H PRN PO DISTENSION/GAS/BLOATING Last administered on 08/04/18at 01:55; Admin Dose 80 MG; Start 08/03/18 at 04:30 Amlodipine Besylate (Norvasc) 5 mg DAILY PO Last administered on 08/05/18 09:03; Admin Dose 5 MG; Start 08/03/18 at 09:00 Fluconazole (Diflucan) 100 mg DAILY PO Last administered on 08/05/18 09:03; Admin Dose 100 MG; Start 08/03/18 at 09:00 Linezolid (Zyvox) 600 mg BID PO Last administered on 08/05/18 09:03; Admin Dose 600 MG; Start 08/03/18 at 09:00 Nystatin (Nystatin Cr) 1 applic BID TOP Last administered on 08/05/18 09:05; Admin Dose 1 APPLIC; Start 08/03/18 at 09:00 Amikacin Sulfate (Amikacin Iv Per Pharmacy) AMIKACIN PER PHARMACY NOTE XX ; Start 08/03/18 at 11:30 Insulin Aspart (Novolog Insulin Pen) NOVOLOG *MILD* ALGORI... AC MEALS AND BEDTIME SC ; Start 08/03/18 at 17:25 Linagliptin (Tradjenta) 5 mg DAILY PO Last administered on 08/05/18at 09:03; Admin Dose 5 MG; Start 08/04/18 at 09:00 Diagnostic Test (Pha) (Accu-Chek) 1 ea 02 XX Last administered on 08/05/18at 01:28; Admin Dose 1 EA; Start 08/04/18 at 02:00 Insulin Glargine (Lantus) 18 units DAILY@2000 SC Last administered on 08/04/18at 21:12; Admin Dose 18 UNITS; Start 08/03/18 at 20:00 Insulin Aspart (Novolog Insulin Pen) 10 unit WITH MEALS SC Last administered on 08/05/18at 12:30; Admin Dose 10 UNIT; Start 08/03/18 at 17:55 Acetylcysteine (Mucomyst) 2 ml Q8H RESP THERAPY NEB Last administered on 08/05/18at 13:50; Admin Dose 2 ML; Start 08/04/18 at 08:00 Collagenase (Santyl) 1 applic DAILY TOP Last administered on 08/05/18at 09:04; Admin Dose 1 APPLIC; Start 08/04/18 at 09:00 Enoxaparin Sodium (Lovenox) 110 mg Q24H SC Last administered on 08/05/18at 09:14; Admin Dose 110 MG; Start 08/04/18 at 09:00 Amikacin Sulfate 500 mg/Sodium Chloride 102 ml @ 101.6 mls/ hr Q48H IVPB ; Start 08/05/18 at 20:00 Diphenhydramine HCl (Benadryl) 25 mg Q6H PRN IV rash or itching; Start 08/05/18 at 11:00 LOUIE BROWN MD Aug 05, 2018 15:32
--- NOTE | 2018-08-05 16:39 | CONS ---
Consultation Date/Type/Reason Admit Date/Time Aug 02, 2018 at 22:00 Initial Consult Date SUBJECTIVE: Trach to VENT pt with PNA. Spiking low grade fevers. Last night 100.0. Sleeping, looks comfortable. VS: stable T: 99.0 LABS: Reviewed. WBC- 16.3 Microbiology: Sputum culture growing Serratia and pseudomonas aeruginosa, multidrug-resistant, urine culture grew Annmarie albicans Antimicrobials: Amikacin, Zyvox, fluconazole Indwelling: Trach PEG Physical examination: Well-developed fragile elderly man who is awake in no distress. HENT: Head atraumatic normocephalic. Neck is supple, tracheostomy present. PULM: Chest rise symmetrical, breath sounds diminished bases. Heart: S1-S2. Abdomen soft bowel sounds present Extremities: + mild edema bilat LE. No cyanosis Assessment: 1. Systemic inflammatory response syndrome with ongoing leukocytosis 2. HCAP with loculated pleural effusion possible empyema 3. Acute on chronic kidney disease 4. Dysphagia 5. Fungal UTI 6. Paroxysmal atrial fibrillation 7. Diabetes Plan: Patient is stable. Continue current antibiotics. Obtain Blood and UA cx. Pulm recommendations. Pending possible VATS. Requesting Provider: DEJUAN ORTIZ MD, [facility] Date/Time of Note DATE: 08/05/18 TIME: 16:37 Exam/Review of Systems Exam Vitals Vital Signs Date Temp Pulse Resp B/P (MAP) Pulse Ox O2 O2 Flow FiO2 Time Delivery Rate 08/05/18 99.0 91 18 142/75 98 15:42 (97) 08/05/18 30 15:15 08/04/18 Mechanical 15:44 Ventilator Intake and Output 08/04/18 08/04/18 08/05/18 1515:00 23:00 07:00 IntakeIntake Total 900 ml 250 ml OutputOutput Total 1800 ml 250 ml BalanceBalance -900 ml 0 ml Results Result Diagram: 08/05/18 0636 08/05/18 0636 Results 24hrs Laboratory Tests Test 08/04/18 17:30 08/04/18 20:55 08/05/18 01:28 08/05/18 06:36 Bedside Glucose 121 131 126 White Blood Count 16.3 H Red Blood Count 3.28 L Hemoglobin 8.2 L Hematocrit 26.6 L Mean Corpuscular 81.1 L Volume Mean Corpuscular 25.0 L Hemoglobin Mean Corpuscular 30.8 L Hemoglobin Concent Red Cell 16.7 H Distribution Width Platelet Count 250 Mean Platelet Volume 8.7 Immature 1.300 H Granulocytes % Neutrophils % 81.6 H Lymphocytes % 6.6 L Monocytes % 9.2 Eosinophils % 0.9 Basophils % 0.4 Nucleated Red Blood 0.0 Cells % Immature 0.220 H Granulocytes # Neutrophils # 13.3 H Lymphocytes # 1.1 Monocytes # 1.5 H Eosinophils # 0.1 Basophils # 0.1 Nucleated Red Blood 0.0 Cells # Sodium Level 136 Potassium Level 5.0 Chloride Level 105 Carbon Dioxide Level 25 Anion Gap 6 Blood Urea Nitrogen 30 H Creatinine 2.22 H Est Glomerular 29 L Filtrat Rate mL/min Glucose Level 85 Calcium Level 8.4 Total Bilirubin 0.2 Direct Bilirubin 0.00 Indirect Bilirubin 0.2 Aspartate Amino 24 Transf (AST/SGOT) Alanine 15 Aminotransferase (AL T/SGPT) Alkaline Phosphatase 226 H Total Protein 6.1 Albumin 2.4 L Globulin 3.70 H Albumin/Globulin 0.64 Ratio Test 08/05/18 08:19 08/05/18 12:25 Bedside Glucose 100 107 Medications Medication Current Medications IV Flush (NS 3 ml) 3 ml PER PROTOCOL IV ; Start 08/03/18 at 00:00 Ondansetron HCl (Zofran Inj) 4 mg Q6H PRN IV NAUSEA/VOMITING Last administered on 08/03/18at 03:48; Admin Dose 4 MG; Start 08/03/18 at 00:00 Nitroglycerin (Nitroglycerin (Sl Tab) 0.4 Mg) 1 tab Q5M PRN SL .CHEST PAIN; Start 08/03/18 at 00:00 Acetaminophen (Tylenol Tab) 650 mg Q6H PRN PO .PAIN 1-3 OR TEMP Last administered on 08/04/18at 03:49; Admin Dose 650 MG; Start 08/03/18 at 00:00 Morphine Sulfate (morphine) 2 mg Q4H PRN IV .PAIN 7-10 Last administered on 08/04/18at 03:49; Admin Dose 2 MG; Start 08/03/18 at 00:00 Docusate Sodium (Colace) 100 mg Q12H PRN PO .CONSTIPATION; Start 08/03/18 at 00:00 Bisacodyl (Dulcolax) 5 mg DAILY PRN PO .CONSTIPATION; Start 08/03/18 at 00:00 Ascorbic Acid (Vitamin C) 500 mg DAILY PO Last administered on 08/05/18 09:04; Admin Dose 500 MG; Start 08/03/18 at 09:00 Chlorhexidine Gluconate (Peridex) 15 ml Q12H MM Last administered on 08/05/18 12:48; Admin Dose 15 ML; Start 08/03/18 at 00:00 Digoxin (Digoxin) 0.25 mg DAILY PO Last administered on 08/05/18 09:04; Admin Dose 0.25 MG; Start 08/03/18 at 09:00 Ferrous Sulfate (Ferrous Sulfate (Ec)) 325 mg DAILY PO Last administered on 07/17 09:04; Admin Dose 325 MG; Start 08/03/18 at 09:00 Pantoprazole (Protonix Tab) 40 mg AC BREAKFAST PO Last administered on 08/05/18 09:03; Admin Dose 40 MG; Start 08/03/18 at 07:25 Sucralfate (Carafate) 1 gm AC MEALS AND BEDTIME PO Last administered on 08/05/18 12:48; Admin Dose 1 GM; Start 08/03/18 at 07:25 Albuterol (Proventil 0.083% (Neb)) 2.5 mg Q4H RESP THERAPY PRN NEB TRACHEOSTOMY Last administered on 08/05/18 13:39; Admin Dose 2.5 MG; Start 08/02/18 at 23:45 Multivitamins/ Minerals (Theragran-M) 1 tab DAILY PO Last administered on 08/05/18 09:04; Admin Dose 1 TAB; Start 08/03/18 at 09:00 Miscellaneous Information 1 ea NOTE XX ; Start 08/02/18 at 23:45 Glucose (Glutose) 15 gm Q15M PRN PO DECREASED GLUCOSE; Start 08/02/18 at 23:45 Glucose (Glutose) 22.5 gm Q15M PRN PO DECREASED GLUCOSE; Start 08/02/18 at 23:45 Dextrose (D50w Syringe) 25 ml Q15M PRN IV DECREASED GLUCOSE; Start 08/02/18 at 23:45 Dextrose (D50w Syringe) 50 ml Q15M PRN IV DECREASED GLUCOSE; Start 08/02/18 at 23:45 Glucagon (Glucagen) 1 mg Q15M PRN IM DECREASED GLUCOSE; Start 08/02/18 at 23:45 Glucose (Glutose) 15 gm Q15M PRN BUCCAL DECREASED GLUCOSE; Start 08/02/18 at 23:45 Simethicone (Mylicon) 80 mg Q8H PRN PO DISTENSION/GAS/BLOATING Last administered on 08/04/18at 01:55; Admin Dose 80 MG; Start 08/03/18 at 04:30 Amlodipine Besylate (Norvasc) 5 mg DAILY PO Last administered on 08/05/18 09:03; Admin Dose 5 MG; Start 08/03/18 at 09:00 Fluconazole (Diflucan) 100 mg DAILY PO Last administered on 08/05/18 09:03; Admin Dose 100 MG; Start 08/03/18 at 09:00 Linezolid (Zyvox) 600 mg BID PO Last administered on 08/05/18 09:03; Admin Dose 600 MG; Start 08/03/18 at 09:00 Nystatin (Nystatin Cr) 1 applic BID TOP Last administered on 08/05/18 09:05; Admin Dose 1 APPLIC; Start 08/03/18 at 09:00 Amikacin Sulfate (Amikacin Iv Per Pharmacy) AMIKACIN PER PHARMACY NOTE XX ; Start 08/03/18 at 11:30 Insulin Aspart (Novolog Insulin Pen) NOVOLOG *MILD* ALGORI... AC MEALS AND BEDTIME SC ; Start 08/03/18 at 17:25 Linagliptin (Tradjenta) 5 mg DAILY PO Last administered on 08/05/18at 09:03; Ad min Dose 5 MG; Start 08/04/18 at 09:00 Diagnostic Test (Pha) (Accu-Chek) 1 ea 02 XX Last administered on 08/05/18at 01:28; Admin Dose 1 EA; Start 08/04/18 at 02:00 Insulin Glargine (Lantus) 18 units DAILY@2000 SC Last administered on 08/04/18at 21:12; Admin Dose 18 UNITS; Start 08/03/18 at 20:00 Insulin Aspart (Novolog Insulin Pen) 10 unit WITH MEALS SC Last administered on 08/05/18at 12:30; Admin Dose 10 UNIT; Start 08/03/18 at 17:55 Acetylcysteine (Mucomyst) 2 ml Q8H RESP THERAPY NEB Last administered on 08/05/18at 13:50; Admin Dose 2 ML; Start 08/04/18 at 08:00 Collagenase (Santyl) 1 applic DAILY TOP Last administered on 08/05/18at 09:04; Admin Dose 1 APPLIC; Start 08/04/18 at 09:00 Enoxaparin Sodium (Lovenox) 110 mg Q24H SC Last administered on 08/05/18at 09:14; Admin Dose 110 MG; Start 08/04/18 at 09:00 Amikacin Sulfate 500 mg/Sodium Chloride 102 ml @ 101.6 mls/ hr Q48H IVPB ; S tart 08/05/18 at 20:00 Diphenhydramine HCl (Benadryl) 25 mg Q6H PRN IV rash or itching; Start 08/05/18 at 11:00 MITRA SRIVASTAVA Aug 05, 2018 16:39
[2018-08-05] MEDS: AMIKACIN 500 MG in SOD CHLORIDE 0.9% 100 ML IVPB SCH (20:29)
[2018-08-05] MEDS: INSULIN GLARGINE [LANTus] (100 UNITS/ML) SYG SC SCH (20:34)
[2018-08-06] VITALS (23 sets, daily range): BP systolic 125–174; BP diastolic 57–78; PULSE 78–102; RESP 15–28
[2018-08-06] MEDS: CHLORHEXIDINE GLUCONATE 15 ML UD CUP MM SCH ×2 (00:07→12:00)
[2018-08-06] MEDS: NYSTATIN 15 GM CR TOP SCH ×3 (00:07→21:04)
[2018-08-06] MEDS: ACCU-CHEK XX SCH (02:00)
[2018-08-06] MEDS: SUCRALFATE 1 GM TAB PO SCH ×4 (04:59→21:05)
[2018-08-06] MEDS: PANTOPRAZOLE (EC) 40 MG TAB PO SCH (05:00)
[2018-08-06] MEDS: INSULIN ASPART [NOVOLOG] 3 ML PEN SC SCH ×7 (07:25→21:00)
[2018-08-06] MEDS: ACETYLCYSTEINE 20% 4 ML VIAL NEB SCH ×2 (08:00→17:43)
[2018-08-06] MEDS: ZYVOX 600 MG TAB PO SCH ×2 (08:11→21:05)
[2018-08-06] MEDS: MULTIVITAMINS/MINERALS TAB PO SCH (08:11)
[2018-08-06] MEDS: FERROUS SULFATE (EC) 325 MG TAB PO SCH (08:11)
[2018-08-06] MEDS: DIGOXIN 0.25 MG TAB PO SCH (08:11)
[2018-08-06] MEDS: AMLODIPINE 5 MG TAB PO SCH (08:11)
[2018-08-06] MEDS: ASCORBIC ACID 500 MG TAB PO SCH (08:11)
[2018-08-06] MEDS: LINAGLIPTIN 5 MG TABLET PO SCH (08:12)
[2018-08-06] MEDS: FLUCONAZOLE 100 MG TAB PO SCH (08:12)
[2018-08-06] MEDS: COLLAGENASE 5 GM (UD JAR) TOP SCH (08:17)
[2018-08-06] MEDS: ENOXAPARIN 100 MG/ML SYG SC SCH (08:21)
--- NOTE | 2018-08-06 09:32 | PN ---
DATE: 08/06/2018 SUBJECTIVE: The patient is stable, no events overnight. OBJECTIVE: VITAL SIGNS: Blood pressure is 174/78, pulse 91, respirations 15, temperature 99.0. HEENT: Head is normocephalic. NECK: Supple. HEART: Regular rate. LUNGS: Show diminished breath sounds at base. ABDOMEN: Soft, nontender to palpation without rebound or guarding. EXTREMITIES: Negative for clubbing, cyanosis, no edema. DERMATOLOGIC: No rashes. MUSCULOSKELETAL: No joint effusions. NEUROLOGIC: No change in exam. MEDICATIONS: Reviewed. LABORATORY DATA: Has been reviewed. ASSESSMENT AND PLAN: 1. Chronic kidney disease with previous baseline creatinine of 2.2 to 2.3 mg/dL. Patient's renal fu nction is currently at baseline. Continue current treatment plan, supportive care, renally dose all meds. 2. Mineral bone disorder, monitor calcium and phosphorus levels. 3. History of diastolic heart failure. Continue intermittent diuretic therapy as needed. 4. Anemia. Etiology is multifactorial secondary to chronic kidney disease. Monitor hemoglobin and hematocrit levels. Will give Epogen as needed. 5. Ventilatory dependent respiratory failure. Vent settings and ABG was reviewed. Continue to [facility]. Follow up with pulmonary. 6. Right pulmonary opacification, possible infiltrate, possible localized empyema. Continue current medical management, continue antibiotic therapy. Follow up with CT surgery. 7. Paroxysmal atrial fibrillation, currently in sinus rhythm. Continue medical management. 8. Diabetes. Continue current insulin regimen. 9. Sepsis. Continue to monitor. 10. Lower extremity edema, possibly due to congestive heart failure, cirrhosis. The patient is stat us post Lasix, continue to monitor. Dictated By: LORY KAY DO NR/NTS Conf#: [id number] DID#: [id number] CC: VARSHA PEARSON MD;*EndCC*
[2018-08-06] MEDS ORDERED: EPOETIN ALFA-EPBX (ESRD) 10,000 UNIT/ML VIAL SC ONE (11:00)
--- NOTE | 2018-08-06 13:26 | CONS ---
Assessment/Plan Assessment/Plan Hospital Course (Demo Recall) Respiratory failure Pleural effusion Paroxysmal atrial fibrillation Hypertension Recurrent anemia, currently off anticoagulation Preserved ejection fraction Moderate pulmonary hypertension -Patient awaiting CT surgery evaluation for pleural effusion -Telemetry with sinus rhythm with frequent PVCs and PACs, would restart beta- hitesh -Would order magnesium supplementation Consultation Date/Type/Reason Admit Date/Time Aug 02, 2018 at 22:00 Initial Consult Date 08/03/18 Type of Consult Cardiology Requesting Provider: DEJUAN ORTIZ MD, [facility] Date/Time of Note DATE: 08/06/18 TIME: 13:24 24 HR Interval Summary Free Text/Dictation Breathing is at times labored. Denies palpitations, chest pain Exam/Review of Systems Vital Signs Vitals Vital Signs Date Temp Pulse Resp B/P (MAP) Pulse Ox O2 O2 Flow FiO2 Time Delivery Rate 08/06/18 98.7 87 18 146/76 97 12:05 (99) 08/06/18 30 11:24 08/04/18 Mechanical 15:44 Ventilator Intake and Output 08/05/18 08/05/18 08/06/18 1515:00 23:00 07:00 IntakeIntake Total 820 ml 680 ml BalanceBalance 820 ml 680 ml Exam Constitutional: alert, oriented (No apparent distress, eating lunch) Head: normocephalic Respiratory: other (Coarse breath sounds bilaterally, no wheezing) Cardiovascular: regular rate and rhythm (S1-S2 heard) Gastrointestinal: soft, non-tender, bowel sounds Extremities: edema Labs Result Diagram: 08/06/18 0711 08/06/18 0710 Results 24hrs Laboratory Tests Test 08/05/18 17:28 08/05/18 20:27 08/05/18 22:23 08/06/18 01:49 Bedside Glucose 93 100 90 Magnesium Level 2.0 Test 08/06/18 04:45 08/06/18 07:02 08/06/18 07:10 08/06/18 07:11 Urine Color YELLOW Urine Clarity SLIGHTLY CLOUDY A Urine pH 6.0 Urine Specific 1.006 [place] Urine Ketones NEGATIVE Urine Nitrite NEGATIVE Urine Bilirubin NEGATIVE Urine NEGATIVE Urobilinogen Urine Leukocyte NEGATIVE Esterase Urine 2 Microscopic RBC Urine 2 Microscopic WBC Urine Squamous FEW Epithelial Cell s Urine Amorphous FEW A Crystals Urine 1+ H Hemoglobin Urine Glucose 1+ H Urine Total 2+ H Protein Lab Scanned BLOOD TRANSFUSI Report ON Sodium Level 137 Potassium Level 4.8 Chloride Level 107 Carbon Dioxide 24 Level Anion Gap 6 Blood Urea 28 H Nitrogen Creatinine 2.18 H Est Glomerular 30 L Filtrat Rate mL/min Glucose Level 89 Calcium Level 9.0 Total Bilirubin 0.2 Direct 0.00 Bilirubin Indirect 0.2 Bilirubin Aspartate Amino 36 Transf (AST/SGO T) Alanine 17 Aminotransferas e (ALT/SGPT) Alkaline 303 H Phosphatase Total Protein 6.7 Albumin 2.5 L Globulin 4.20 H Albumin/Globuli 0.59 n Ratio White Blood 13.9 H Count Red Blood Count 3.41 L Hemoglobin 8.7 L Hematocrit 28.0 L Mean 82.1 Corpuscular Volume Mean 25.5 L Corpuscular Hemoglobin Mean 31.1 L Corpuscular Hemoglobin Conc ent Red Cell 17.2 H Distribution Width Platelet Count 246 Mean Platelet 8.8 Volume Immature 1.200 H Granulocytes % Neutrophils % 79.9 H Lymphocytes % 8.4 L Monocytes % 9.1 Eosinophils % 1.1 Basophils % 0.3 Nucleated Red 0.0 Blood Cells % Immature 0.160 H Granulocytes # Neutrophils # 11.1 H Lymphocytes # 1.2 Monocytes # 1.3 H Eosinophils # 0.2 Basophils # 0.0 Nucleated Red 0.0 Blood Cells # Test 08/06/18 07:53 08/06/18 11:57 08/06/18 12:43 Bedside Glucose 99 104 Lab Scanned REFERENCE LAB Report Medications Medications Current Medications IV Flush (NS 3 ml) 3 ml PER PROTOCOL IV ; Start 08/03/18 at 00:00 Ondansetron HCl (Zofran Inj) 4 mg Q6H PRN IV NAUSEA/VOMITING Last administered on 08/03/18at 03:48; Admin Dose 4 MG; Start 08/03/18 at 00:00 Nitroglycerin (Nitroglycerin (Sl Tab) 0.4 Mg) 1 tab Q5M PRN SL .CHEST PAIN; Start 08/03/18 at 00:00 Acetaminophen (Tylenol Tab) 650 mg Q6H PRN PO .PAIN 1-3 OR TEMP Last admi nistered on 08/04/18at 03:49; Admin Dose 650 MG; Start 08/03/18 at 00:00 Morphine Sulfate (morphine) 2 mg Q4H PRN IV .PAIN 7-10 Last administered on 08/04/18 03:49; Admin Dose 2 MG; Start 08/03/18 at 00:00 Docusate Sodium (Colace) 100 mg Q12H PRN PO .CONSTIPATION; Start 08/03/18 at 00:00 Bisacodyl (Dulcolax) 5 mg DAILY PRN PO .CONSTIPATION; Start 08/03/18 at 00:00 Ascorbic Acid (Vitamin C) 500 mg DAILY PO Last administered on 08/06/18 08:11; Admin Dose 500 MG; Start 08/03/18 at 09:00 Chlorhexidine Gluconate (Peridex) 15 ml Q12H MM Last administered on 08/06/18 00:07; Admin Dose 15 ML; Start 08/03/18 at 00:00 Digoxin (Digoxin) 0.25 mg DAILY PO Last administered on 08/06/18 08:11; Admin Dose 0.25 MG; Start 08/03/18 at 09:00 Ferrous Sulfate (Ferrous Sulfate (Ec)) 325 mg DAILY PO Last administered on 08/06/18 08:11; Admin Dose 325 MG; Start 08/03/18 at 09:00 Pantoprazole (Protonix Tab) 40 mg AC BREAKFAST PO Last administered on 08/06/18 05:00; Admin Dose 40 MG; Start 08/03/18 at 07:25 Sucralfate (Carafate) 1 gm AC MEALS AND BEDTIME PO Last administered on 08/06/18 04:59; Admin Dose 1 GM; Start 08/03/18 at 07:25 Albuterol (Proventil 0.083% (Neb)) 2.5 mg Q4H RESP THERAPY PRN NEB TRACHEOSTOMY Last administered on 08/05/18 13:39; Admin Dose 2.5 MG; Start 08/02/18 at 23:45 Multivitamins/ Minerals (Theragran-M) 1 tab DAILY PO Last administered on 08/06/18 08:11; Admin Dose 1 TAB; Start 08/03/18 at 09:00 Miscellaneous Information 1 ea NOTE XX ; Start 08/02/18 at 23:45 Glucose (Glutose) 15 gm Q15M PRN PO DECREASED GLUCOSE; Start 08/02/18 at 23:45 Glucose (Glutose) 22.5 gm Q15M PRN PO DECREASED GLUCOSE; Start 08/02/18 at 23:45 Dextrose (D50w Syringe) 25 ml Q15M PRN IV DECREASED GLUCOSE; Start 08/02/18 at 23:45 Dextrose (D50w Syringe) 50 ml Q15M PRN IV DECREASED GLUCOSE; Start 08/02/18 at 23:45 Glucagon (Glucagen) 1 mg Q15M PRN IM DECREASED GLUCOSE; Start 08/02/18 at 23:45 Glucose (Glutose) 15 gm Q15M PRN BUCCAL DECREASED GLUCOSE; Start 08/02/18 at 23:45 Simethicone (Mylicon) 80 mg Q8H PRN PO DISTENSION/GAS/BLOATING Last administered on 08/04/18at 01:55; Admin Dose 80 MG; Start 08/03/18 at 04:30 Amlodipine Besylate (Norvasc) 5 mg DAILY PO Last administered on 08/06/18 08:11; Admin Dose 5 MG; Start 08/03/18 at 09:00 Fluconazole (Diflucan) 100 mg DAILY PO Last administered on 08/06/18 08:12; Admin Dose 100 MG; Start 08/03/18 at 09:00 Linezolid (Zyvox) 600 mg BID PO Last administered on 08/06/18 08:11; Admin Dose 600 MG; Start 08/03/18 at 09:00 Nystatin (Nystatin Cr) 1 applic BID TOP Last administered on 08/06/18 07:58; Admin Dose 1 APPLIC; Start 08/03/18 at 09:00 Amikacin Sulfate (Amikacin Iv Per Pharmacy) AMIKACIN PER PHARMACY NOTE XX ; Start 08/03/18 at 11:30 Insulin Aspart (Novolog Insulin Pen) NOVOLOG *MILD* ALGORI... AC MEALS AND BEDTIME SC ; Start 08/03/18 at 17:25 Linagliptin (Tradjenta) 5 mg DAILY PO Last administered on 08/06/18 08:12; Admin Dose 5 MG; Start 08/04/18 at 09:00 Diagnostic Test (Pha) (Accu-Chek) 1 ea 02 XX Last administered on 08/05/18 01:28; Admin Dose 1 EA; Start 08/04/18 at 02:00 Insulin Glargine (Lantus) 18 units DAILY@2000 SC Last administered on 4/21/19at 20:34; Admin Dose 18 UNITS; Start 08/03/18 at 20:00 Insulin Aspart (Novolog Insulin Pen) 10 unit WITH MEALS SC Last administered on 08/06/18 08:02; Admin Dose 10 UNIT; Start 08/03/18 at 17:55 Acetylcysteine (Mucomyst) 2 ml Q8H RESP THERAPY NEB Last administered on 08/05/18 13:50; Admin Dose 2 ML; Start 08/04/18 at 08:00 Collagenase (Santyl) 1 applic DAILY TOP Last administered on 08/06/18 08:17; Admin Dose 1 APPLIC; Start 08/04/18 at 09:00 Enoxaparin Sodium (Lovenox) 110 mg Q24H SC Last administered on 08/06/18 08:21; Admin Dose 110 MG; Start 08/04/18 at 09:00 Amikacin Sulfate 500 mg/Sodium Chloride 102 ml @ 101.6 mls/ hr Q48H IVPB Last administered on 08/05/18at 20:29; Admin Dose 101.6 MLS/HR; Start 08/05/18 at 2 0:00 Diphenhydramine HCl (Benadryl) 25 mg Q6H PRN IV rash or itching; Start 08/05/18 at 11:00 Nasir Da Silva DO Aug 06, 2018 13:26
[2018-08-06] MEDS ORDERED: MAGNESIUM SULFATE 1 GM/D5W 100 ML IVPB ONE (13:30)
--- NOTE | 2018-08-06 13:45 | PN ---
Date/Time of Note Date/Time of Note DATE: 08/06/18 TIME: 13:33 Assessment/Plan VTE Prophylaxis Risk score (from Nsg)>0 risk: 3 SCD applied (from Ns): No SCD contraindicated: other Pharmacological prophylaxis: LMWH Lines/Catheters IV Catheter Type (from Nrs): Mid Line Urinary Cath still in place: No Assessment/Plan Hospital Course S: Seen by cardiology team today. Waiting to be seen by CTS team. No acute events overnight. O: VS- see below PE: General: Obese man lying in bed, deflated trach on vent. HEENT: Atraumatic, normocephalic. Neck: trach to vent Lungs: Mechanical, coarse breath sounds throughout. Heart: Normal S1-S2, Regular rhythm and rate. No murmur, S3, or S4 Abdomen: Soft , obese, nontender, nondistended , bowel sounds are present. Extremities: 1+ bilateral lower extremity edema Neurologic: awake, alert. Able to talk with deflated cuff. Skin: Raised, erythematous macular rash across abdomen. Assessment/Plan: 68-year-old man with a past medical history of chronic respiratory failure status post trach, who was transferred from [facility] to [facility] for evaluation of loculated empyema ad possible VATS. The patient was a previous resident of [facility], was noted to have a loculated fluid effusion. The patient, after attempted bronchoscopy and post chest-tube without improvement of loculated fluid was subsequently transferred to [facility] for surgical evaluation. #1 acute on chronic hypoxemic and hypercarbic respiratory failure-Patient is on chronic ventilatory support. -Continue vent management as per pulmonary, antibiotics as ordered by ID team #2 Right pulmonary opacification plus infiltrates-Suspicion likely for large loculated thick pleural effusion, loculated empyema s/p failed bronchoscopy and chest tube -Patient is currently on broad-spectrum antibiotics of Zyvox, fluconazole, as well as amikacin. We will continue antibiotics at the current time. ID consulted -CT surgery has been consulted by pulmonary medicine in regards to possible surgical intervention with a thoracotomy -follow-up their recommendations on this. #3 Paroxysmal atrial fibrillation-Currently in sinus rhythm. - Continue to monitor. - Xarelto on hold at the current time given possibility for surgical interv ention, instead patient has been on Lovenox which we will hold for now in anticipation of possible cardiothoracic surgery intervention #4 anemia of chronic disease: Patient received PRBC transfusion 2 days ago, hemoglobin stable since then -Monitor, transfuse for Hgb<7 or for symptomatic anemia. #5 Chronic kidney disease stage III r/o FROILAN: Creatinine today 2.18- amikacin on hold -nephro consulted, f/u trend and recommendations #6 diabetes mellitus: A1c was 8.6, sugars are stable -Monitor sugars #7 diastolic CHF - chronic with bilateral lower extremity edema-may also be related to anasarca from #8 -Monitor for now #8 Hepatic cirrhosis-Chest CT shows possible liver cirrhosis confirmed on USS. -Monitor, f/u hepatitis serologies. #9 DVT GI prophylaxis: lovenox, Protonix Dispo: -Previous hospitalist spoke with CTS, tentative plan for surgery possibly later this week? -Continue to hold Xarelto Result Diagram: 08/06/18 0711 08/06/18 0710 Results 24hrs Laboratory Tests Test 08/05/18 17:28 08/05/18 20:27 08/05/18 22:23 08/06/18 01:49 Bedside Glucose 93 100 90 Magnesium Level 2.0 Test 08/06/18 04:45 08/06/18 07:02 08/06/18 07:10 08/06/18 07:11 Urine Color YELLOW Urine Clarity SLIGHTLY CLOUDY A Urine pH 6.0 Urine Specific 1.006 [place] Urine Ketones NEGATIVE Urine Nitrite NEGATIVE Urine Bilirubin NEGATIVE Urine NEGATIVE Urobilinogen Urine Leukocyte NEGATIVE Esterase Urine 2 Microscopic RBC Urine 2 Microscopic WBC Urine Squamous FEW Epithelial Cell s Urine Amorphous FEW A Crystals Urine 1+ H Hemoglobin Urine Glucose 1+ H Urine Total 2+ H Protein Lab Scanned BLOOD TRANSFUSI Report ON Sodium Level 137 Potassium Level 4.8 Chloride Level 107 Carbon Dioxide 24 Level Anion Gap 6 Blood Urea 28 H Nitrogen Creatinine 2.18 H Est Glomerular 30 L Filtrat Rate mL/min Glucose Level 89 Calcium Level 9.0 Total Bilirubin 0.2 Direct 0.00 Bilirubin Indirect 0.2 Bilirubin Aspartate Amino 36 Transf (AST/SGO T) Alanine 17 Aminotransferas e (ALT/SGPT) Alkaline 303 H Phosphatase Total Protein 6.7 Albumin 2.5 L Globulin 4.20 H Albumin/Globuli 0.59 n Ratio White Blood 13.9 H Count Red Blood Count 3.41 L Hemoglobin 8.7 L Hematocrit 28.0 L Mean 82.1 Corpuscular Volume Mean 25.5 L Corpuscular Hemoglobin Mean 31.1 L Corpuscular Hemoglobin Conc ent Red Cell 17.2 H Distribution Width Platelet Count 246 Mean Platelet 8.8 Volume Immature 1.200 H Granulocytes % Neutrophils % 79.9 H Lymphocytes % 8.4 L Monocytes % 9.1 Eosinophils % 1.1 Basophils % 0.3 Nucleated Red 0.0 Blood Cells % Immature 0.160 H Granulocytes # Neutrophils # 11.1 H Lymphocytes # 1.2 Monocytes # 1.3 H Eosinophils # 0.2 Basophils # 0.0 Nucleated Red 0.0 Blood Cells # Test 08/06/18 07:53 08/06/18 11:57 08/06/18 12:43 Bedside Glucose 99 104 Lab Scanned REFERENCE LAB Report Exam/Review of Systems Exam Vitals Vital Signs Date Temp Pulse Resp B/P (MAP) Pulse Ox O2 O2 Flow FiO2 Time Delivery Rate 08/06/18 98.7 87 18 146/76 97 12:05 (99) 08/06/18 30 11:24 08/04/18 Mechanical 15:44 Ventilator Intake and Output 08/05/18 08/05/18 08/06/18 1515:00 23:00 07:00 IntakeIntake Total 820 ml 680 ml BalanceBalance 820 ml 680 ml Results Results 24hrs Laboratory Tests Test 08/05/18 17:28 08/05/18 20:27 08/05/18 22:23 08/06/18 01:49 Bedside Glucose 93 100 90 Magnesium Level 2.0 Test 08/06/18 04:45 08/06/18 07:02 08/06/18 07:10 08/06/18 07:11 Urine Color YELLOW Urine Clarity SLIGHTLY CLOUDY A Urine pH 6.0 Urine Specific 1.006 [place] Urine Ketones NEGATIVE Urine Nitrite NEGATIVE Urine Bilirubin NEGATIVE Urine NEGATIVE Urobilinogen Urine Leukocyte NEGATIVE Esterase Urine 2 Microscopic RBC Urine 2 Microscopic WBC Urine Squamous FEW Epithelial Cell s Urine Amorphous FEW A Crystals Urine 1+ H Hemoglobin Urine Glucose 1+ H Urine Total 2+ H Protein Lab Scanned BLOOD TRANSFUSI Report ON Sodium Level 137 Potassium Level 4.8 Chloride Level 107 Carbon Dioxide 24 Level Anion Gap 6 Blood Urea 28 H Nitrogen Creatinine 2.18 H Est Glomerular 30 L Filtrat Rate mL/min Glucose Level 89 Calcium Level 9.0 Total Bilirubin 0.2 Direct 0.00 Bilirubin Indirect 0.2 Bilirubin Aspartate Amino 36 Transf (AST/SGO T) Alanine 17 Aminotransferas e (ALT/SGPT) Alkaline 303 H Phosphatase Total Protein 6.7 Albumin 2.5 L Globulin 4.20 H Albumin/Globuli 0.59 n Ratio White Blood 13.9 H Count Red Blood Count 3.41 L Hemoglobin 8.7 L Hematocrit 28.0 L Mean 82.1 Corpuscular Volume Mean 25.5 L Corpuscular Hemoglobin Mean 31.1 L Corpuscular Hemoglobin Conc ent Red Cell 17.2 H Distribution Width Platelet Count 246 Mean Platelet 8.8 Volume Immature 1.200 H Granulocytes % Neutrophils % 79.9 H Lymphocytes % 8.4 L Monocytes % 9.1 Eosinophils % 1.1 Basophils % 0.3 Nucleated Red 0.0 Blood Cells % Immature 0.160 H Granulocytes # Neutrophils # 11.1 H Lymphocytes # 1.2 Monocytes # 1.3 H Eosinophils # 0.2 Basophils # 0.0 Nucleated Red 0.0 Blood Cells # Test 08/06/18 07:53 08/06/18 11:57 08/06/18 12:43 Bedside Glucose 99 104 Lab Scanned REFERENCE LAB Report Medications Medication Current Medications IV Flush (NS 3 ml) 3 ml PER PROTOCOL IV ; Start 08/03/18 at 00:00 Ondansetron HCl (Zofran Inj) 4 mg Q6H PRN IV NAUSEA/VOMITING Last administered on 08/03/18at 03:48; Admin Dose 4 MG; Start 08/03/18 at 00:00 Nitroglycerin (Nitroglycerin (Sl Tab) 0.4 Mg) 1 tab Q5M PRN SL .CHEST PAIN; Start 08/03/18 at 00:00 Acetaminophen (Tylenol Tab) 650 mg Q6H PRN PO .PAIN 1-3 OR TEMP Last administered on 08/04/18 03:49; Admin Dose 650 MG; Start 08/03/18 at 00:00 Morphine Sulfate (morphine) 2 mg Q4H PRN IV .PAIN 7-10 Last administered on 08/04/18 03:49; Admin Dose 2 MG; Start 08/03/18 at 00:00 Docusate Sodium (Colace) 100 mg Q12H PRN PO .CONSTIPATION; Start 08/03/18 at 00:00 Bisacodyl (Dulcolax) 5 mg DAILY PRN PO .CONSTIPATION; Start 08/03/18 at 00:00 Ascorbic Acid (Vitamin C) 500 mg DAILY PO Last administered on 08/06/18 08:11; Admin Dose 500 MG; Start 08/03/18 at 09:00 Chlorhexidine Gluconate (Peridex) 15 ml Q12H MM Last administered on 08/06/18 00:07; Admin Dose 15 ML; Start 08/03/18 at 00:00 Digoxin (Digoxin) 0.25 mg DAILY PO Last administered on 08/06/18 08:11; Admin Dose 0.25 MG; Start 08/03/18 at 09:00 Ferrous Sulfate (Ferrous Sulfate (Ec)) 325 mg DAILY PO Last administered on 08/06/18 08:11; Admin Dose 325 MG; Start 08/03/18 at 09:00 Pantoprazole (Protonix Tab) 40 mg AC BREAKFAST PO Last administered on 08/06/18 05:00; Admin Dose 40 MG; Start 08/03/18 at 07:25 Sucralfate (Carafate) 1 gm AC MEALS AND BEDTIME PO Last administered on 08/06/18 04:59; Admin Dose 1 GM; Start 08/03/18 at 07:25 Albuterol (Proventil 0.083% (Neb)) 2.5 mg Q4H RESP THERAPY PRN NEB TRACHEOSTOMY Last administered on 08/05/18 13:39; Admin Dose 2.5 MG; Start 08/02/18 at 23:45 Multivitamins/ Minerals (Theragran-M) 1 tab DAILY PO Last administered on 08/06/18 08:11; Admin Dose 1 TAB; Start 08/03/18 at 09:00 Miscellaneous Information 1 ea NOTE XX ; Start 08/02/18 at 23:45 Glucose (Glutose) 15 gm Q15M PRN PO DECREASED GLUCOSE; Start 08/02/18 at 23:45 Glucose (Glutose) 22.5 gm Q15M PRN PO DECREASED GLUCOSE; Start 08/02/18 at 23:45 Dextrose (D50w Syringe) 25 ml Q15M PRN IV DECREASED GLUCOSE; Start 08/02/18 at 23:45 Dextrose (D50w Syringe) 50 ml Q15M PRN IV DECREASED GLUCOSE; Start 08/02/18 at 23:45 Glucagon (Glucagen) 1 mg Q15M PRN IM DECREASED GLUCOSE; Start 08/02/18 at 23:45 Glucose (Glutose) 15 gm Q15M PRN BUCCAL DECREASED GLUCOSE; Start 08/02/18 at 23:45 Simethicone (Mylicon) 80 mg Q8H PRN PO DISTENSION/GAS/BLOATING Last administered on 08/04/18 01:55; Admin Dose 80 MG; Start 08/03/18 at 04:30 Amlodipine Besylate (Norvasc) 5 mg DAILY PO Last administered on 08/06/18 08:11; Admin Dose 5 MG; Start 08/03/18 at 09:00 Fluconazole (Diflucan) 100 mg DAILY PO Last administered on 08/06/18 08:12; Admin Dose 100 MG; Start 08/03/18 at 09:00 Linezolid (Zyvox) 600 mg BID PO Last administered on 08/06/18 08:11; Admin Dos e 600 MG; Start 08/03/18 at 09:00 Nystatin (Nystatin Cr) 1 applic BID TOP Last administered on 08/06/18 07:58; Admin Dose 1 APPLIC; Start 08/03/18 at 09:00 Amikacin Sulfate (Amikacin Iv Per Pharmacy) AMIKACIN PER PHARMACY NOTE XX ; Start 08/03/18 at 11:30 Insulin Aspart (Novolog Insulin Pen) NOVOLOG *MILD* ALGORI... AC MEALS AND BEDTIME SC ; Start 08/03/18 at 17:25 Linagliptin (Tradjenta) 5 mg DAILY PO Last administered on 08/06/18 08:12; Admin Dose 5 MG; Start 08/04/18 at 09:00 Diagnostic Test (Pha) (Accu-Chek) 1 ea 02 XX Last administered on 08/05/18 01:28; Admin Dose 1 EA; Start 08/04/18 at 02:00 Insulin Glargine (Lantus) 18 units DAILY@2000 SC Last administered on 08/05/18 20:34; Admin Dose 18 UNITS; Start 08/03/18 at 20:00 Insulin Aspart (Novolog Insulin Pen) 10 unit WITH MEALS SC Last administered on 08/06/18 08:02; Admin Dose 10 UNIT; Start 08/03/18 at 17:55 Acetylcysteine (Mucomyst) 2 ml Q8H RESP THERAPY NEB Last administered on 08/05/18at 13:50; Admin Dose 2 ML; Start 08/04/18 at 08:00 Collagenase (Santyl) 1 applic DAILY TOP Last administered on 08/06/18at 08:17; Admin Dose 1 APPLIC; Start 08/04/18 at 09:00 Enoxaparin Sodium (Lovenox) 110 mg Q24H SC Last administered on 08/06/18at 08:21; Admin Dose 110 MG; Start 08/04/18 at 09:00 Amikacin Sulfate 500 mg/Sodium Chloride 102 ml @ 101.6 mls/ hr Q48H IVPB Last administered on 08/05/18at 20:29; Admin Dose 101.6 MLS/HR; Start 08/05/18 at 20:00 Diphenhydramine HCl (Benadryl) 25 mg Q6H PRN IV rash or itching; Start 08/05/18 at 11:00 Metoprolol Tartrate (Lopressor) 25 mg BID PO ; Start 08/06/18 at 13:30 Magnesium Sulfate/ Dextrose 100 ml @ 100 mls/hr ONCE ONCE IVPB ; Start 08/06/18 at 13:30; Stop 08/06/18 at 14:29; Status JEIMY NI Aug 06, 2018 13:45
--- NOTE | 2018-08-06 14:14 | CONS ---
Assessment/Plan Assessment/Plan Hospital Course (Demo Recall) Alert, feels ok, no fevers, nad Microbiology: Sputum culture growing Serratia and pseudomonas aeruginosa, multidrug-resistant, urine culture grew Annmarie albicans Antimicrobials: Amikacin, Zyvox, fluconazole Indwelling: Trach PEG Physical examination: Well-developed obese fragile elderly man who is awake in no distress. Head atraumatic normocephalic Neck is supple, tracheostomy present. Chest rise symmetrical breath sounds diminished bases. Heart: S1-S2. Abdomen soft bowel sounds present, extremities without cyanosis, + edema Assessment: 1. Systemic inflammatory response syndrome with ongoing leukocytosis 2. HCAP with loculated pleural effusion possible empyema 3. Acute on chronic kidney disease 4. Dysphagia 5. Fungal UTI 6. Paroxysmal atrial fibrillation 7. Diabetes Plan: Clinically unchanged, stable, continue present care and antibiotics, await for cardiothoracic surgery evaluation Consultation Date/Type/Reason Admit Date/Time Aug 02, 2018 at 22:00 Initial Consult Date Type of Consult id Requesting Provider: DEJUAN ORTIZ MD, [facility] Date/Time of Note DATE: 08/06/18 TIME: 14:12 Exam/Review of Systems Exam Vitals Vital Signs Date Temp Pulse Resp B/P (MAP) Pulse Ox O2 O2 Flow FiO2 Time Delivery Rate 08/06/18 98.7 87 18 146/76 97 12:05 (99) 08/06/18 30 11:24 08/04/18 Mechanical 15:44 Ventilator Intake and Output 08/05/18 08/05/18 08/06/18 1515:00 23:00 07:00 IntakeIntake Total 820 ml 680 ml BalanceBalance 820 ml 680 ml Results Result Diagram: 08/06/18 0711 08/06/18 0710 Results 24hrs Laboratory Tests Test 08/05/18 17:28 08/05/18 20:27 08/05/18 22:23 08/06/18 01:49 Bedside Glucose 93 100 90 Magnesium Level 2.0 Test 08/06/18 04:45 08/06/18 07:02 08/06/18 07:10 08/06/18 07:11 Urine Color YELLOW Urine Clarity SLIGHTLY CLOUDY A Urine pH 6.0 Urine Specific 1.006 [place] Urine Ketones NEGATIVE Urine Nitrite NEGATIVE Urine Bilirubin NEGATIVE Urine NEGATIVE Urobilinogen Urine Leukocyte NEGATIVE Esterase Urine 2 Microscopic RBC Urine 2 Microscopic WBC Urine Squamous FEW Epithelial Cell s Urine Amorphous FEW A Crystals Urine 1+ H Hemoglobin Urine Glucose 1+ H Urine Total 2+ H Protein Lab Scanned BLOOD TRANSFUSI Report ON Sodium Level 137 Potassium Level 4.8 Chloride Level 107 Carbon Dioxide 24 Level Anion Gap 6 Blood Urea 28 H Nitrogen Creatinine 2.18 H Est Glomerular 30 L Filtrat Rate mL/min Glucose Level 89 Calcium Level 9.0 Total Bilirubin 0.2 Direct 0.00 Bilirubin Indirect 0.2 Bilirubin Aspartate Amino 36 Transf (AST/SGO T) Alanine 17 Aminotransferas e (ALT/SGPT) Alkaline 303 H Phosphatase Total Protein 6.7 Albumin 2.5 L Globulin 4.20 H Albumin/Globuli 0.59 n Ratio White Blood 13.9 H Count Red Blood Count 3.41 L Hemoglobin 8.7 L Hematocrit 28.0 L Mean 82.1 Corpuscular Volume Mean 25.5 L Corpuscular Hemoglobin Mean 31.1 L Corpuscular Hemoglobin Conc ent Red Cell 17.2 H Distribution Width Platelet Count 246 Mean Platelet 8.8 Volume Immature 1.200 H Granulocytes % Neutrophils % 79.9 H Lymphocytes % 8.4 L Monocytes % 9.1 Eosinophils % 1.1 Basophils % 0.3 Nucleated Red 0.0 Blood Cells % Immature 0.160 H Granulocytes # Neutrophils # 11.1 H Lymphocytes # 1.2 Monocytes # 1.3 H Eosinophils # 0.2 Basophils # 0.0 Nucleated Red 0.0 Blood Cells # Test 08/06/18 07:53 08/06/18 11:57 08/06/18 12:43 Bedside Glucose 99 104 Lab Scanned REFERENCE LAB Report Medications Medication Current Medications IV Flush (NS 3 ml) 3 ml PER PROTOCOL IV ; Start 08/03/18 at 00:00 Ondansetron HCl (Zofran Inj) 4 mg Q6H PRN IV NAUSEA/VOMITING Last administered on 08/03/18at 03:48; Admin Dose 4 MG; Start 08/03/18 at 00:00 Nitroglycerin (Nitroglycerin (Sl Tab) 0.4 Mg) 1 tab Q5M PRN SL .CHEST PAIN; Start 08/03/18 at 00:00 Acetaminophen (Tylenol Tab) 650 mg Q6H PRN PO .PAIN 1-3 OR TEMP Last administered on 08/04/18at 03:49; Admin Dose 650 MG; Start 08/03/18 at 00:00 Morphine Sulfate (morphine) 2 mg Q4H PRN IV .PAIN 7-10 Last administered on 03:49; Admin Dose 2 MG; Start 08/03/18 at 00:00 Docusate Sodium (Colace) 100 mg Q12H PRN PO .CONSTIPATION; Start 08/03/18 at 00:00 Bisacodyl (Dulcolax) 5 mg DAILY PRN PO .CONSTIPATION; Start 08/03/18 at 00:00 Ascorbic Acid (Vitamin C) 500 mg DAILY PO Last administered on 08/06/18 08:11; Admin Dose 500 MG; Start 08/03/18 at 09:00 Chlorhexidine Gluconate (Peridex) 15 ml Q12H MM Last administered on 08/06/18 00:07; Admin Dose 15 ML; Start 08/03/18 at 00:00 Digoxin (Digoxin) 0.25 mg DAILY PO Last administered on 08/06/18 08:11; Admin Dose 0.25 MG; Start 08/03/18 at 09:00 Ferrous Sulfate (Ferrous Sulfate (Ec)) 325 mg DAILY PO Last administered on 08/06/18 08:11; Admin Dose 325 MG; Start 08/03/18 at 09:00 Pantoprazole (Protonix Tab) 40 mg AC BREAKFAST PO Last administered on 08/06/18 05:00; Admin Dose 40 MG; Start 08/03/18 at 07:25 Sucralfate (Carafate) 1 gm AC MEALS AND BEDTIME PO Last administered on 08/06/18 04:59; Admin Dose 1 GM; Start 08/03/18 at 07:25 Albuterol (Proventil 0.083% (Neb)) 2.5 mg Q4H RESP THERAPY PRN NEB TRACHEOSTOMY Last administered on 08/05/18 13:39; Admin Dose 2.5 MG; Start 08/02/18 at 23:45 Multivitamins/ Minerals (Theragran-M) 1 tab DAILY PO Last administered on 08/06/18 08:11; Admin Dose 1 TAB; Start 08/03/18 at 09:00 Miscellaneous Information 1 ea NOTE XX ; Start 08/02/18 at 23:45 Glucose (Glutose) 15 gm Q15M PRN PO DECREASED GLUCOSE; Start 08/02/18 at 23:45 Glucose (Glutose) 22.5 gm Q15M PRN PO DECREASED GLUCOSE; Start 08/02/18 at 23:45 Dextrose (D50w Syringe) 25 ml Q15M PRN IV DECREASED GLUCOSE; Start 08/02/18 at 23:45 Dextrose (D50w Syringe) 50 ml Q15M PRN IV DECREASED GLUCOSE; Start 08/02/18 at 23:45 Glucagon (Glucagen) 1 mg Q15M PRN IM DECREASED GLUCOSE; Start 08/02/18 at 23:45 Glucose (Glutose) 15 gm Q15M PRN BUCCAL DECREASED GLUCOSE; Start 08/02/18 at 23:45 Simethicone (Mylicon) 80 mg Q8H PRN PO DISTENSION/GAS/BLOATING Last administered on 08/04/18at 01:55; Admin Dose 80 MG; Start 08/03/18 at 04:30 Amlodipine Besylate (Norvasc) 5 mg DAILY PO Last administered on 08/06/18 08:11; Admin Dose 5 MG; Start 08/03/18 at 09:00 Fluconazole (Diflucan) 100 mg DAILY PO Last administered on 08/06/18 08:12; Ad min Dose 100 MG; Start 08/03/18 at 09:00 Linezolid (Zyvox) 600 mg BID PO Last administered on 08/06/18 08:11; Admin Dose 600 MG; Start 08/03/18 at 09:00 Nystatin (Nystatin Cr) 1 applic BID TOP Last administered on 08/06/18at 07:58; Admin Dose 1 APPLIC; Start 08/03/18 at 09:00 Amikacin Sulfate (Amikacin Iv Per Pharmacy) AMIKACIN PER PHARMACY NOTE XX ; Start 08/03/18 at 11:30 Insulin Aspart (Novolog Insulin Pen) NOVOLOG *MILD* ALGORI... AC MEALS AND BEDTIME SC ; Start 08/03/18 at 17:25 Linagliptin (Tradjenta) 5 mg DAILY PO Last administered on 08/06/18at 08:12; Admin Dose 5 MG; Start 08/04/18 at 09:00 Diagnostic Test (Pha) (Accu-Chek) 1 ea 02 XX Last administered on 08/05/18at 01:28; Admin Dose 1 EA; Start 08/04/18 at 02:00 Insulin Glargine (Lantus) 18 units DAILY@2000 SC Last administered on 08/05/18at 20:34; Admin Dose 18 UNITS; Start 08/03/18 at 20:00 Insulin Aspart (Novolog Insulin Pen) 10 unit WITH MEALS SC Last administered on 08/06/18 08:02; Admin Dose 10 UNIT; Start 08/03/18 at 17:55 Acetylcysteine (Mucomyst) 2 ml Q8H RESP THERAPY NEB Last administered on 08/05/18at 13:50; Admin Dose 2 ML; Start 08/04/18 at 08:00 Collagenase (Santyl) 1 applic DAILY TOP Last administered on 08/06/18 08:17; Admin Dose 1 APPLIC; Start 08/04/18 at 09:00 Enoxaparin Sodium (Lovenox) 110 mg Q24H SC Last administered on 08/06/18 08:21; Admin Dose 110 MG; Start 08/04/18 at 09:00; Status Hold Amikacin Sulfate 500 mg/Sodium Chloride 102 ml @ 101.6 mls/ hr Q48H IVPB Last administered on 08/05/18at 20:29; Admin Dose 101.6 MLS/HR; Start 08/05/18 at 20:00 Diphenhydramine HCl (Benadryl) 25 mg Q6H PRN IV rash or itching; Start 08/05/18 at 11:00 Metoprolol Tartrate (Lopressor) 25 mg BID PO ; Start 08/06/18 at 13:30 Magnesium Sulfate/ Dextrose 100 ml @ 100 mls/hr ONCE ONCE IVPB ; Start 08/06/18 at 13:30; Stop 08/06/18 at 14:29 JUANIS FINN NP Aug 06, 2018 14:14
--- NOTE | 2018-08-06 14:55 | CONS ---
Consult Date/Type/Reason Admit Date/Time Aug 02, 2018 at 22:00 Initial Consult Date 08/03/18 Type of Consult Pulmonary Requesting Provider: DEJUAN ORTIZ MD, [facility] Date/Time of Note DATE: 08/06/18 TIME: 14:54 Subjective Patient appears comfortable on mechanical ventilation no respiratory distress Objective Vital Signs Date Temp Pulse Resp B/P (MAP) Pulse Ox O2 O2 Flow FiO2 Time Delivery Rate 08/06/18 98.7 87 18 146/76 97 12:05 (99) 08/06/18 30 11:24 08/04/18 Mechanical 15:44 Ventilator Intake and Output 08/05/18 08/05/18 08/06/18 1515:00 23:00 07:00 IntakeIntake Total 820 ml 680 ml BalanceBalance 820 ml 680 ml Exam GENERAL: Elderly gentleman on mechanical ventilation. VITAL SIGNS: per chart NECK: Supple. No JVD or lymphadenopathy. CARDIAC EXAM: S1, S2. No added sounds or murmurs. CHEST: Diminished air entry bilaterally ABDOMEN: Soft, nontender. No guarding or rebound. EXTREMITIES: No cyanosis, clubbing edema +1 NEUROLOGIC: Generalized weakness. Vent Setting Ventilator Support Mode: AC Fraction of Inspired Oxygen pe: 30 Positive End Expiratory Pressu: 5.0 Results/Medications Result Diagram: 08/06/18 0711 08/06/18 0710 Results 24 hrs Laboratory Tests Test 08/05/18 17:28 08/05/18 20:27 08/05/18 22:23 08/06/18 01:49 Bedside Glucose 93 100 90 Magnesium Level 2.0 Test 08/06/18 04:45 08/06/18 07:02 08/06/18 07:10 08/06/18 07:11 Urine Color YELLOW Urine Clarity SLIGHTLY CLOUDY A Urine pH 6.0 Urine Specific 1.006 [place] Urine Ketones NEGATIVE Urine Nitrite NEGATIVE Urine Bilirubin NEGATIVE Urine NEGATIVE Urobilinogen Urine Leukocyte NEGATIVE Esterase Urine 2 Microscopic RBC Urine 2 Microscopic WBC Urine Squamous FEW Epithelial Cell s Urine Amorphous FEW A Crystals Urine 1+ H Hemoglobin Urine Glucose 1+ H Urine Total 2+ H Protein Lab Scanned BLOOD TRANSFUSI Report ON Sodium Level 137 Potassium Level 4.8 Chloride Level 107 Carbon Dioxide 24 Level Anion Gap 6 Blood Urea 28 H Nitrogen Creatinine 2.18 H Est Glomerular 30 L Filtrat Rate mL/min Glucose Level 89 Calcium Level 9.0 Total Bilirubin 0.2 Direct 0.00 Bilirubin Indirect 0.2 Bilirubin Aspartate Amino 36 Transf (AST/SGO T) Alanine 17 Aminotransferas e (ALT/SGPT) Alkaline 303 H Phosphatase Total Protein 6.7 Albumin 2.5 L Globulin 4.20 H Albumin/Globuli 0.59 n Ratio White Blood 13.9 H Count Red Blood Count 3.41 L Hemoglobin 8.7 L Hematocrit 28.0 L Mean 82.1 Corpuscular Volume Mean 25.5 L Corpuscular Hemoglobin Mean 31.1 L Corpuscular Hemoglobin Conc ent Red Cell 17.2 H Distribution Width Platelet Count 246 Mean Platelet 8.8 Volume Immature 1.200 H Granulocytes % Neutrophils % 79.9 H Lymphocytes % 8.4 L Monocytes % 9.1 Eosinophils % 1.1 Basophils % 0.3 Nucleated Red 0.0 Blood Cells % Immature 0.160 H Granulocytes # Neutrophils # 11.1 H Lymphocytes # 1.2 Monocytes # 1.3 H Eosinophils # 0.2 Basophils # 0.0 Nucleated Red 0.0 Blood Cells # Test 08/06/18 07:53 08/06/18 11:57 08/06/18 12:43 Bedside Glucose 99 104 Lab Scanned REFERENCE LAB Report Medications Current Medications IV Flush (NS 3 ml) 3 ml PER PROTOCOL IV ; Start 08/03/18 at 00:00 Ondansetron HCl (Zofran Inj) 4 mg Q6H PRN IV NAUSEA/VOMITING Last administered on 08/03/18at 03:48; Admin Dose 4 MG; Start 08/03/18 at 00:00 Nitroglycerin (Nitroglycerin (Sl Tab) 0.4 Mg) 1 tab Q5M PRN SL .CHEST PAIN; Start 08/03/18 at 00:00 Acetaminophen (Tylenol Tab) 650 mg Q6H PRN PO .PAIN 1-3 OR TEMP Last administered on 08/04/18at 03:49; Admin Dose 650 MG; Start 08/03/18 at 00:00 Morphine Sulfate (morphine) 2 mg Q4H PRN IV .PAIN 7-10 Last administered on 08/04/18 03:49; Admin Dose 2 MG; Start 08/03/18 at 00:00 Docusate Sodium (Colace) 100 mg Q12H PRN PO .CONSTIPATION; Start 08/03/18 at 00:00 Bisacodyl (Dulcolax) 5 mg DAILY PRN PO .CONSTIPATION; Start 08/03/18 at 00:00 Ascorbic Acid (Vitamin C) 500 mg DAILY PO Last administered on 08/06/18 08:11; Admin Dose 500 MG; Start 08/03/18 at 09:00 Chlorhexidine Gluconate (Peridex) 15 ml Q12H MM Last administered on 08/06/18 00:07; Admin Dose 15 ML; Start 08/03/18 at 00:00 Digoxin (Digoxin) 0.25 mg DAILY PO Last administered on 08/06/18 08:11; Admin Dose 0.25 MG; Start 08/03/18 at 09:00 Ferrous Sulfate (Ferrous Sulfate (Ec)) 325 mg DAILY PO Last administered on 08/06/18 08:11; Admin Dose 325 MG; Start 08/03/18 at 09:00 Pantoprazole (Protonix Tab) 40 mg AC BREAKFAST PO Last administered on 08/06/18 05:00; Admin Dose 40 MG; Start 08/03/18 at 07:25 Sucralfate (Carafate) 1 gm AC MEALS AND BEDTIME PO Last administered on 08/06/18 04:59; Admin Dose 1 GM; Start 08/03/18 at 07:25 Albuterol (Proventil 0.083% (Neb)) 2.5 mg Q4H RESP THERAPY PRN NEB TRACHEOSTOMY Last administered on 08/05/18 13:39; Admin Dose 2.5 MG; Start 08/02/18 at 23:45 Multivitamins/ Minerals (Theragran-M) 1 tab DAILY PO Last administered on 08/06/18 08:11; Admin Dose 1 TAB; Start 08/03/18 at 09:00 Miscellaneous Information 1 ea NOTE XX ; Start 08/02/18 at 23:45 Glucose (Glutose) 15 gm Q15M PRN PO DECREASED GLUCOSE; Start 08/02/18 at 23:45 Glucose (Glutose) 22.5 gm Q15M PRN PO DECREASED GLUCOSE; Start 08/02/18 at 23:45 Dextrose (D50w Syringe) 25 ml Q15M PRN IV DECREASED GLUCOSE; Start 08/02/18 at 23:45 Dextrose (D50w Syringe) 50 ml Q15M PRN IV DECREASED GLUCOSE; Start 08/02/18 at 23:45 Glucagon (Glucagen) 1 mg Q15M PRN IM DECREASED GLUCOSE; Start 08/02/18 at 23:45 Glucose (Glutose) 15 gm Q15M PRN BUCCAL DECREASED GLUCOSE; Start 08/02/18 at 23:45 Simethicone (Mylicon) 80 mg Q8H PRN PO DISTENSION/GAS/BLOATING Last administered on 08/04/18 01:55; Admin Dose 80 MG; Start 08/03/18 at 04:30 Amlodipine Besylate (Norvasc) 5 mg DAILY PO Last administered on 08/06/18 08:11; Admin Dose 5 MG; Start 08/03/18 at 09:00 Fluconazole (Diflucan) 100 mg DAILY PO Last administered on 08/06/18 08:12; A dmin Dose 100 MG; Start 08/03/18 at 09:00 Linezolid (Zyvox) 600 mg BID PO Last administered on 08/06/18 08:11; Admin Dose 600 MG; Start 08/03/18 at 09:00 Nystatin (Nystatin Cr) 1 applic BID TOP Last administered on 08/06/18 07:58; Admin Dose 1 APPLIC; Start 08/03/18 at 09:00 Amikacin Sulfate (Amikacin Iv Per Pharmacy) AMIKACIN PER PHARMACY NOTE XX ; Start 08/03/18 at 11:30 Insulin Aspart (Novolog Insulin Pen) NOVOLOG *MILD* ALGORI... AC MEALS AND BEDTIME SC ; Start 08/03/18 at 17:25 Linagliptin (Tradjenta) 5 mg DAILY PO Last administered on 08/06/18 08:12; Admin Dose 5 MG; Start 08/04/18 at 09:00 Diagnostic Test (Pha) (Accu-Chek) 1 ea 02 XX Last administered on 08/05/18 01:28; Admin Dose 1 EA; Start 08/04/18 at 02:00 Insulin Glargine (Lantus) 18 units DAILY@2000 SC Last administered on 08/05/18 20:34; Admin Dose 18 UNITS; Start 08/03/18 at 20:00 Insulin Aspart (Novolog Insulin Pen) 10 unit WITH MEALS SC Last administered on 08/06/18 12:00; Admin Dose 10 UNIT; Start 08/03/18 at 17:55 Acetylcysteine (Mucomyst) 2 ml Q8H RESP THERAPY NEB Last administered on 08/05/18at 13:50; Admin Dose 2 ML; Start 08/04/18 at 08:00 Collagenase (Santyl) 1 applic DAILY TOP Last administered on 08/06/18at 08:17; Admin Dose 1 APPLIC; Start 08/04/18 at 09:00 Enoxaparin Sodium (Lovenox) 110 mg Q24H SC Last administered on 08/06/18at 08:21; Admin Dose 110 MG; Start 08/04/18 at 09:00; Status Hold Amikacin Sulfate 500 mg/Sodium Chloride 102 ml @ 101.6 mls/ hr Q48H IVPB Last administered on 08/05/18at 20:29; Admin Dose 101.6 MLS/HR; Start 08/05/18 at 20:00 Diphenhydramine HCl (Benadryl) 25 mg Q6H PRN IV rash or itching; Start 08/05/18 at 11:00 Metoprolol Tartrate (Lopressor) 25 mg BID PO ; Start 08/06/18 at 13:30 Assessment/Plan Hospital Course (Demo Recall) Assessment 1. Vent dependent respiratory failure 2. Loculated right pleural effusion with extrinsic compression causing intermittent lung collapse. 3. Renal insufficiency Plan 1. Case discussed at length with thoracic surgery agree with conservative approach of pigtail catheter placement. 2. If unsuccessful then proceed to thoracic surgery decortication. 3. Continue antibiotics. DEJUAN ORTIZ MD, [facility] Aug 06, 2018 14:55
[2018-08-06] MEDS: METOPROLOL 25 MG TAB PO SCH ×2 (15:01→21:06)
--- NOTE | 2018-08-06 15:36 | PN ---
Date/Time of Note Date/Time of Note DATE: 08/06/18 TIME: 15:34 Assessment/Plan Lines/Catheters IV Catheter Type (from Nrs): Mid Line Vergara in Place (from Nrsg): No Assessment/Plan Assessment/Plan 68 year old with trach and vent dependence has loculated right pleural effusion. Asked to see him regarding possible decortication. He is not the best candidate for surgery. I would try pigtail catheter and TPA before surgery. Discussed with Dr. Garcia Exam/Review of Systems Vital Signs Vitals Vital Signs Date Temp Pulse Resp B/P (MAP) Pulse Ox O2 O2 Flow FiO2 Time Delivery Rate 08/06/18 98.7 87 18 146/76 97 12:05 (99) 08/06/18 30 11:24 08/04/18 Mechanical 15:44 Ventilator Intake and Output 08/05/18 08/05/18 08/06/18 1515:00 23:00 07:00 IntakeIntake Total 820 ml 680 ml BalanceBalance 820 ml 680 ml Results Result Diagram: 08/06/18 0711 08/06/18 0710 NATALIE ALAN MD Aug 06, 2018 15:36
--- NOTE | 2018-08-06 18:01 | CONS ---
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 Will cont. current insulin regimen. 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 Consultation Date/Type/Reason Admit Date/Time Aug 02, 2018 at 22:00 Initial Consult Date 08/03/18 Type of Consult Endocrinology Reason for Consultation T2DM management Requesting Provider: DEJUAN ORTIZ MD, [facility] Date/Time of Note DATE: 08/06/18 TIME: 17:59 24 HR Interval Summary Constitutional: no complaints, improved Detailed Summary Respiratory: no complaints Cardiovascular: no complaints Gastrointestinal: pain; No constipation Genitourinary: no complaints Musculoskeletal: no complaints Neurologic: no complaints Exam/Review of Systems Exam Vitals VS - Last 72 Hours, by Label Date Temp Pulse Resp B/P (MAP) Pulse Ox O2 O2 Flow FiO2 Time Delivery Rate 08/06/18 95 24 98 30 17:43 08/06/18 84 16:01 08/06/18 98.5 99 19 163/72 92 15:41 (102) 08/06/18 95 22 98 30 15:20 08/06/18 96 22 98 30 13:25 08/06/18 98.7 87 18 146/76 97 12:05 (99) 08/06/18 102 12:01 08/06/18 96 24 98 30 11:24 08/06/18 96 23 98 30 09:23 08/06/18 90 08:01 08/06/18 99.0 91 15 174/78 95 07:42 (110) 08/06/18 95 23 98 30 07:20 08/06/18 90 22 95 30 04:50 08/06/18 94 04:00 08/06/18 98.0 95 16 125/66 98 04:00 (85) 08/06/18 100 23 98 30 03:08 08/06/18 89 21 95 30 01:06 08/06/18 83 00:00 08/06/18 99.5 92 16 158/61 99 00:00 (93) 08/05/18 88 24 98 30 22:55 08/05/18 90 21:48 08/05/18 90 24 96 30 21:00 08/05/18 30 20:14 08/05/18 88 20:00 08/05/18 55 20:00 08/05/18 99.2 90 18 132/62 97 20:00 (85) 08/05/18 30 18:57 08/05/18 88 18 98 40 18:56 08/05/18 89 21 98 30 17:38 08/05/18 79 16:01 08/05/18 99.0 91 18 142/75 98 15:42 (97) 08/05/18 88 24 96 30 15:15 08/05/18 87 20 97 30 13:15 08/05/18 81 12:01 08/05/18 86 16 99 30 11:40 08/05/18 99.4 88 17 158/69 98 11:33 (98) 08/05/18 90 16 100 30 09:30 08/05/18 88 08:01 08/05/18 86 14 98 40 07:39 08/05/18 98.7 96 20 135/76 96 07:36 (95) 08/05/18 84 14 96 30 04:55 08/05/18 80 04:00 08/05/18 99.3 83 20 142/65 98 04:00 (90) 08/05/18 99 19 99 30 02:56 08/05/18 82 24 98 30 00:57 08/05/18 85 00:00 08/04/18 99.2 82 18 148/66 100 23:59 (93) 08/04/18 82 26 98 30 23:55 08/04/18 89 25 98 30 21:06 08/04/18 40 20:00 08/04/18 92 20:00 08/04/18 100.0 85 20 145/66 99 20:00 (92) 08/04/18 85 25 98 30 18:56 08/04/18 86 21 100 30 17:15 08/04/18 78 16:01 08/04/18 98.5 79 18 129/61 100 [place] 15:44 (83) l Ventilato r 08/04/18 85 23 100 30 15:15 08/04/18 86 20 99 30 13:05 08/04/18 78 12:01 08/04/18 99.1 77 18 137/63 98 [place] 11:19 (87) l Ventilato r 08/04/18 72 18 100 40 11:10 08/04/18 80 21 100 30 09:10 08/04/18 83 08:01 08/04/18 99.1 81 16 132/63 98 [place] 07:48 (86) l Ventilato r 08/04/18 80 19 100 30 07:30 08/04/18 95 20 98 40 05:27 08/04/18 99.6 05:02 08/04/18 99.6 04:34 08/04/18 100.1 12 134/61 98 04:02 (85) 08/04/18 84 04:00 08/04/18 100.1 03:49 08/04/18 90 19 98 40 03:42 08/04/18 81 17 98 40 01:14 08/04/18 99.9 83 12 132/60 98 00:00 (84) 08/04/18 80 00:00 08/03/18 81 14 98 40 23:30 08/03/18 80 16 98 40 21:48 08/03/18 78 20:00 08/03/18 40 20:00 08/03/18 99.6 81 18 138/61 98 19:59 (86) 08/03/18 80 17 97 40 19:54 Vital Signs Date Temp Pulse Resp B/P (MAP) Pulse Ox O2 O2 Flow FiO2 Time Delivery Rate 08/06/18 95 24 98 30 17:43 08/06/18 98.5 163/72 15:41 (102) 08/04/18 Mechanical 15:44 Ventilator Intake and Output 08/05/18 08/05/18 08/06/18 1414:59 22:59 06:59 IntakeIntake Total 820 ml 680 ml BalanceBalance 820 ml 680 ml Constitutional: alert, oriented, obese Neck: other ((+) trach) Respiratory: clear to auscultation, normal air movement Cardiovascular: regular rate and rhythm, edema (3+ BLE); No murmurs/extra sounds, No rub Gastrointestinal: soft, nl liver, spleen, bowel sounds, tender (diffuse); No mass, No rebound or guarding Musculoskeletal: nl extremities to inspection Extremities: edema (3+ BLE); No cyanosis, No clubbing 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, nl mental status, nl speech, nl strength Additional Comments Bedside Glucose - 72 Hours Test 08/03/18 22:27 08/04/18 02:00 08/04/18 07:51 08/04/18 11:47 Bedside 132 135 102 98 Glucose mg/dL (70-220) mg/dL (70-220) mg/dL (70-220) mg/dL (70-220) Test 08/04/18 17:30 08/04/18 20:55 08/05/18 01:28 08/05/18 08:19 Bedside 121 131 126 100 Glucose mg/dL (70-220) mg/dL (70-220) mg/dL (70-220) mg/dL (70-220) Test 08/05/18 12:25 08/05/18 17:28 08/05/18 20:27 08/06/18 01:49 Bedside 107 93 100 90 Glucose mg/dL (70-220) mg/dL (70-220) mg/dL (70-220) mg/dL (70-220) Test 08/06/18 07:53 08/06/18 11:57 08/06/18 17:50 Bedside 99 104 107 Glucose mg/dL (70-220) mg/dL (70-220) mg/dL (70-220) Results Result Diagram: 08/06/18 0711 08/06/18 0710 Results 24hrs Laboratory Tests Test 08/05/18 20:27 08/05/18 22:23 08/06/18 01:49 08/06/18 04:45 Bedside Glucose 100 90 Magnesium Level 2.0 Urine Color YELLOW Urine Clarity SLIGHTLY CLOUD Y A Urine pH 6.0 Urine Specific 1.006 [place] Urine Ketones NEGATIVE Urine Nitrite NEGATIVE Urine Bilirubin NEGATIVE Urine NEGATIVE Urobilinogen Urine Leukocyte NEGATIVE Esterase Urine 2 Microscopic RBC Urine 2 Microscopic WBC Urine Squamous FEW Epithelial Cell s Urine Amorphous FEW A Crystals Urine 1+ H Hemoglobin Urine Glucose 1+ H Urine Total 2+ H Protein Test 08/06/18 07:02 08/06/18 07:10 08/06/18 07:11 08/06/18 07:53 Lab Scanned BLOOD TRANSFUSI Report ON Sodium Level 137 Potassium Level 4.8 Chloride Level 107 Carbon Dioxide 24 Level Anion Gap 6 Blood Urea 28 H Nitrogen Creatinine 2.18 H Est Glomerular 30 L Filtrat Rate mL/min Glucose Level 89 Calcium Level 9.0 Total Bilirubin 0.2 Direct 0.00 Bilirubin Indirect 0.2 Bilirubin Aspartate Amino 36 Transf (AST/SGO T) Alanine 17 Aminotransferas e (ALT/SGPT) Alkaline 303 H Phosphatase Total Protein 6.7 Albumin 2.5 L Globulin 4.20 H Albumin/Globuli 0.59 n Ratio White Blood 13.9 H Count Red Blood Count 3.41 L Hemoglobin 8.7 L Hematocrit 28.0 L Mean 82.1 Corpuscular Volume Mean 25.5 L Corpuscular Hemoglobin Mean 31.1 L Corpuscular Hemoglobin Conc ent Red Cell 17.2 H Distribution Width Platelet Count 246 Mean Platelet 8.8 Volume Immature 1.200 H Granulocytes % Neutrophils % 79.9 H Lymphocytes % 8.4 L Monocytes % 9.1 Eosinophils % 1.1 Basophils % 0.3 Nucleated Red 0.0 Blood Cells % Immature 0.160 H Granulocytes # Neutrophils # 11.1 H Lymphocytes # 1.2 Monocytes # 1.3 H Eosinophils # 0.2 Basophils # 0.0 Nucleated Red 0.0 Blood Cells # Bedside Glucose 99 Test 08/06/18 11:57 08/06/18 12:43 08/06/18 17:50 Bedside Glucose 104 107 Lab Scanned REFERENCE LAB Report Medications Medication Current Medications IV Flush (NS 3 ml) 3 ml PER PROTOCOL IV ; Start 08/03/18 at 00:00 Ondansetron HCl (Zofran Inj) 4 mg Q6H PRN IV NAUSEA/VOMITING Last administered on 08/03/18at 03:48; Admin Dose 4 MG; Start 08/03/18 at 00:00 Nitroglycerin (Nitroglycerin (Sl Tab) 0.4 Mg) 1 tab Q5M PRN SL .CHEST PAIN; Start 08/03/18 at 00:00 Acetaminophen (Tylenol Tab) 650 mg Q6H PRN PO .PAIN 1-3 OR TEMP Last administered on 08/04/18at 03:49; Admin Dose 650 MG; Start 08/03/18 at 00:00 Morphine Sulfate (morphine) 2 mg Q4H PRN IV .PAIN 7-10 Last administered on 08/04/18at 03:49; Admin Dose 2 MG; Start 08/03/18 at 00:00 Docusate Sodium (Colace) 100 mg Q12H PRN PO .CONSTIPATION; Start 08/03/18 at 00:00 Bisacodyl (Dulcolax) 5 mg DAILY PRN PO .CONSTIPATION; Start 08/03/18 at 00:00 Ascorbic Acid (Vitamin C) 500 mg DAILY PO Last administered on 08/06/18 08:11; Admin Dose 500 MG; Start 08/03/18 at 09:00 Chlorhexidine Gluconate (Peridex) 15 ml Q12H MM Last administered on 08/06/18 00:07; Admin Dose 15 ML; Start 08/03/18 at 00:00 Digoxin (Digoxin) 0.25 mg DAILY PO Last administered on 08/06/18 08:11; Admin Dose 0.25 MG; Start 08/03/18 at 09:00 Ferrous Sulfate (Ferrous Sulfate (Ec)) 325 mg DAILY PO Last administered on 08/06/18 08:11; Admin Dose 325 MG; Start 08/03/18 at 09:00 Pantoprazole (Protonix Tab) 40 mg AC BREAKFAST PO Last administered on 08/06/18 05:00; Admin Dose 40 MG; Start 08/03/18 at 07:25 Sucralfate (Carafate) 1 gm AC MEALS AND BEDTIME PO Last administered on 08/06/18 04:59; Admin Dose 1 GM; Start 08/03/18 at 07:25 Albuterol (Proventil 0.083% (Neb)) 2.5 mg Q4H RESP THERAPY PRN NEB TRACHEOSTOMY Last administered on 08/05/18 13:39; Admin Dose 2.5 MG; Start 08/02/18 at 23:45 Multivitamins/ Minerals (Theragran-M) 1 tab DAILY PO Last administered on 08/06/18 08:11; Admin Dose 1 TAB; Start 08/03/18 at 09:00 Miscellaneous Information 1 ea NOTE XX ; Start 08/02/18 at 23:45 Glucose (Glutose) 15 gm Q15M PRN PO DECREASED GLUCOSE; Start 08/02/18 at 23:45 Glucose (Glutose) 22.5 gm Q15M PRN PO DECREASED GLUCOSE; Start 08/02/18 at 23:45 Dextrose (D50w Syringe) 25 ml Q15M PRN IV DECREASED GLUCOSE; Start 08/02/18 at 23:45 Dextrose (D50w Syringe) 50 ml Q15M PRN IV DECREASED GLUCOSE; Start 08/02/18 at 23:45 Glucagon (Glucagen) 1 mg Q15M PRN IM DECREASED GLUCOSE; Start 08/02/18 at 23:45 Glucose (Glutose) 15 gm Q15M PRN BUCCAL DECREASED GLUCOSE; Start 08/02/18 at 23:45 Simethicone (Mylicon) 80 mg Q8H PRN PO DISTENSION/GAS/BLOATING Last administered on 08/04/18at 01:55; Admin Dose 80 MG; Start 08/03/18 at 04:30 Amlodipine Besylate (Norvasc) 5 mg DAILY PO Last administered on 08/06/18 08:11; Admin Dose 5 MG; Start 08/03/18 at 09:00 Fluconazole (Diflucan) 100 mg DAILY PO Last administered on 08/06/18 08:12; Admin Dose 100 MG; Start 08/03/18 at 09:00 Linezolid (Zyvox) 600 mg BID PO Last administered on 08/06/18 08:11; Admin Dose 600 MG; Start 08/03/18 at 09:00 Nystatin (Nystatin Cr) 1 applic BID TOP Last administered on 08/06/18at 07:58; Admin Dose 1 APPLIC; Start 08/03/18 at 09:00 Amikacin Sulfate (Amikacin Iv Per Pharmacy) AMIKACIN PER PHARMACY NOTE XX ; Start 08/03/18 at 11:30 Insulin Aspart (Novolog Insulin Pen) NOVOLOG *MILD* ALGORI... AC MEALS AND BEDTIME SC ; Start 08/03/18 at 17:25 Linagliptin (Tradjenta) 5 mg DAILY PO Last administered on 08/06/18 08:12; Admin Dose 5 MG; Start 08/04/18 at 09:00 Diagnostic Test (Pha) (Accu-Chek) 1 ea 02 XX Last administered on 08/05/18 01:28; Admin Dose 1 EA; Start 08/04/18 at 02:00 Insulin Glargine (Lantus) 18 units DAILY@2000 SC Last administered on 08/05/18at 20:34; Admin Dose 18 UNITS; Start 08/03/18 at 20:00 Insulin Aspart (Novolog Insulin Pen) 10 unit WITH MEALS SC Last administered on 08/06/18at 12:00; Admin Dose 10 UNIT; Start 08/03/18 at 17:55 Acetylcysteine (Mucomyst) 2 ml Q8H RESP THERAPY NEB Last administered on 08/05/18at 13:50; Admin Dose 2 ML; Start 08/04/18 at 08:00 Collagenase (Santyl) 1 applic DAILY TOP Last administered on 08/06/18at 08:17; Admin Dose 1 APPLIC; Start 08/04/18 at 09:00 Enoxaparin Sodium (Lovenox) 110 mg Q24H SC Last administered on 08/06/18at 08:21; Admin Dose 110 MG; Start 08/04/18 at 09:00; Status Hold Amikacin Sulfate 500 mg/Sodium Chloride 102 ml @ 101.6 mls/ hr Q48H IVPB Last administered on 08/05/18at 20:29; Admin Dose 101.6 MLS/HR; Start 08/05/18 at 20 :00 Diphenhydramine HCl (Benadryl) 25 mg Q6H PRN IV rash or itching; Start 08/05/18 at 11:00 Metoprolol Tartrate (Lopressor) 25 mg BID PO Last administered on 08/06/18at 15:01; Admin Dose 25 MG; Start 08/06/18 at 13:30 ANTONIO ABURTO MD Aug 06, 2018 18:01
[2018-08-06] MEDS ORDERED: INSULIN GLARGINE [LANTus] (100 UNITS/ML) SYG SC ONE (20:30)
[2018-08-07] VITALS (29 sets, daily range): BP systolic 110–158; BP diastolic 63–91; PULSE 67–104; RESP 14–25
[2018-08-07] MEDS: ACCU-CHEK XX SCH (02:00)
[2018-08-07] MEDS: INSULIN ASPART [NOVOLOG] 3 ML PEN SC SCH ×7 (07:25→21:05)
[2018-08-07] MEDS: PANTOPRAZOLE (EC) 40 MG TAB PO SCH (07:25)
[2018-08-07] MEDS: SUCRALFATE 1 GM TAB PO SCH ×4 (07:25→20:56)
[2018-08-07] MEDS: ACETYLCYSTEINE 20% 4 ML VIAL NEB SCH ×3 (07:50→16:00)
[2018-08-07] MEDS: FERROUS SULFATE (EC) 325 MG TAB PO SCH (09:00)
[2018-08-07] MEDS: LINAGLIPTIN 5 MG TABLET PO SCH (09:00)
[2018-08-07] MEDS: FLUCONAZOLE 100 MG TAB PO SCH (09:00)
[2018-08-07] MEDS: MULTIVITAMINS/MINERALS TAB PO SCH (09:00)
[2018-08-07] MEDS: AMLODIPINE 5 MG TAB PO SCH (09:00)
[2018-08-07] MEDS: METOPROLOL 25 MG TAB PO SCH ×2 (09:00→20:59)
[2018-08-07] MEDS: ASCORBIC ACID 500 MG TAB PO SCH (09:00)
[2018-08-07] MEDS: ZYVOX 600 MG TAB PO SCH ×2 (09:00→20:56)
[2018-08-07] MEDS: DIGOXIN 0.25 MG TAB PO SCH (09:00)
[2018-08-07] MEDS: NYSTATIN 15 GM CR TOP SCH ×2 (09:33→21:07)
[2018-08-07] MEDS: COLLAGENASE 5 GM (UD JAR) TOP SCH (09:33)
--- NOTE | 2018-08-07 09:39 | PN ---
DATE: 08/07/2018 SUBJECTIVE: The patient is stable, no events overnight. No fevers, chills, nausea, or vomiting. OBJECTIVE: VITAL SIGNS: Blood pressure is 153/74, respirations 22, pulse 98, temperature 99.2. HEENT: Head is normocephalic. NECK: Supple. HEART: Regular rate. LUNGS: Show diminished breath sounds at the base. ABDOMEN: Soft, nontender to palpation without rebound or guarding. EXTREMITIES: Negative for clubbing, cyanosis. No edema. MUSCULOSKELETAL: No joint effusion. DERMATOLOGIC: No rashes. NEUROLOGIC: No focal deficits. MEDICATIONS: Reviewed. LABORATORY DATA: Reviewed. ASSESSMENT AND PLAN: 1. Chronic kidney disease with previous baseline creatinine of 2.2 to 2.3 mg/dL. The patient's yris l function is currently at baseline. Continue current treatment plan, supportive care, renally dose all medicines. 2. Mineral bone disorder, monitor calcium and phosphorus levels. 3. Diastolic heart failure. The patient appears compensated. Continue intermittent diuretic therap y. 4. Anemia. Continue to monitor hemoglobin and hematocrit levels. We will give Epogen as needed. 5. Ventilator-dependent respiratory failure. Vent settings and ABG was reviewed. Continue to monit or. 6. Right pulmonary opacification. The patient was seen by CT surgery, may not be a suitable janiya te for decortication. The patient is pending possible chest tube placement. 7. Paroxysmal atrial fibrillation. Continue current medical management. Follow up with cardiology. 8. Diabetes. Continue current insulin regimen. 9. Sepsis. The patient is completing antibiotic course. Dictated By: LORY KAY DO NR/NTS Conf#: [id number] DID#: [id number] CC: JEIMY LOMAS; NATALIE ALAN MD; VARSHA PEARSON MD;*EndCC*
[2018-08-07] MEDS ORDERED: LIDOCAINE 1% (MDV) 20 ML INJ ONE (10:04)
[2018-08-07] MEDS ORDERED: LIDOCAINE 1% (MPF) 5 ML VIAL ONE (10:04)
--- NOTE | 2018-08-07 10:17 | PREAC ---
Date/Time of Note Date/Time of Note DATE: 08/07/18 TIME: 10:03 Anesthesia Eval and Record Evaluation Time Pre-Procedure Interview DATE: 08/07/18 TIME: 10:03 Age 68 Sex male NPO: 8 hrs Preoperative diagnosis Double chest tube placement Planned procedure pleural effusions Past Medical History Past Medical History: Includes (bilateral lower extremity edema) Cardio: Arrythmia (paroxysmal afib on digoxin), CHF, Other (cardiomyopathy) Endo: Diabetes Pulm: COPD, Other (pulmonary opacifications and infiltrates, respiratory failure on a vent/trach) Renal: CKD (stage 3) Hepatic: Cirrhosis (small ascites) Heme: Anemia (received 1u prbc since admission) Surgery & Anesthesia Issues No known issue (multiple bronchoscopies, failed thoracentesis, Tracheostomy) Meds Anticoagulation: No Beta Yadira within 24 hr: Yes Reported Medications Amlodipine Besylate* (Amlodipine Besylate*) 2.5 Mg Tablet, 5 MG PO DAILY, #30 TAB 08/03/18 Acetylcysteine* (Mucomyst*) 4 Ml Soln, 2 ML NEB Q8, EA 08/03/18 Sodium Ferric Gluconate Complx (FERRLECIT 62.5 MG/5 ML VIAL) 62.5 Mg/5 Ml Soln, 125 MG IV DAILY 08/03/18 Loratadine (Loratadine) 10 Mg Capsule, 10 MG PO DAILY, CAP 08/03/18 Nystatin* (Nystatin*) 15 Gm Cr, 1 APPLIC TOP BID, #1 TUB 08/03/18 Metoprolol Tartrate* (Lopressor*) 25 Mg Tablet, 25 MG PO BID, #60 TAB 08/03/18 Linezolid* (Zyvox*) 600 Mg Tablet, 600 MG PO BID, TAB 08/03/18 Linagliptin (TRADJENTA) 5 Mg Tablet, 5 MG PO DAILY, TAB 08/03/18 Fluconazole* (Fluconazole*) 100 Mg Tablet, 100 MG PO DAILY, TAB 08/03/18 Amikacin Sulfate* (Amikacin* Pediatric IV Syringe) 5 Mg/Ml Soln, 400 MG IV q48hr, EA 08/03/18 Insulin Aspart* (Novolog Insulin Pen*) 100 Unit/Ml Soln, 0 SC .SLIDING SCALE AC, EA OR 5 UNITS AC MEALS TID 07/18/18 Insulin Glargine,Hum.rec.anlog (Basaglar Kwikpen U-100) 100 Unit/1 Ml Insuln.pen, 28 UNIT SC QHS, EA 07/18/18 Insulin Glargine,Hum.rec.anlog (Basaglar Kwikpen U-100) 100 Unit/1 Ml Insuln.pen, 18 UNIT SC QAM, EA 07/18/18 Acetaminophen* (Acetaminophen*) 500 MG Extra Strength Tablet, 1000 MG PO Q8H PRN for PAIN, TAB 07/18/18 Acetaminophen* (Tylenol*) 325 Mg Tablet, 650 MG PO Q4H PRN for MILD PAIN LEVEL 1-3, TAB AND FEVER 07/18/18 Ascorbic Acid (Vitamin C) 500 Mg Tab, 500 MG PO DAILY, TAB 07/18/18 Lorazepam* (Lorazepam*) 1 Mg Tablet, 1 MG PO Q6 PRN for ANXIETY, #60 TAB 07/18/18 Sucralfate* (Carafate*) 1 Gm Tab, 1 GM PO AC MEALS AND BEDTIME, TAB 07/18/18 Rivaroxaban* (Xarelto*) 15 Mg Tablet, 15 MG PO WITH DINNER, TAB 07/18/18 Multivitamin with Minerals (Multivitamins with Minerals) 1 Each Tablet, 1 EACH PO DAILY, TAB 07/18/18 Pantoprazole* (Pantoprazole*) 40 Mg Tablet.dr, 40 MG PO AC BREAKFAST, TAB 07/18/18 Polyethylene Glycol* (Miralax*) 17 Gm Powd.pack, 17 GM PO DAILY, #30 PACKET 07/18/18 Ferrous Sulfate* (Ferrous Sulfate*) 325 Mg Tabec, 325 MG PO DAILY, TAB 07/18/18 Digoxin* (Digitek*) 250 Mcg Tablet, 0.25 MG PO DAILY, TAB HOLD IF HR<60 07/18/18 Cranberry Fruit (CRANBERRY) 450 Mg Tablet, 450 MG PO DAILY, TAB 07/18/18 Chlorhexidine Gluconate (Peridex) 473 Ml Mouthwash, 15 ML MM Q12H, BOTTLE 07/18/18 Ipratropium-Albuterol (Ipratropium-Albuterol) 0.5-3 Mg/3 Ml Ampul.neb, 3 ML INH ALATION Q4H PRN for VIA TRACHEOSTOMY, #30 VIAL 07/18/18 Albuterol Sulfate* (Albuterol Sulfate* Neb) 0.083%-3 Ml Neb, 2.5 MG NEB Q4H PRN for TRACHEOSTOMY, #30 VIAL AND Q6H NEEDED 07/18/18 Current Medications IV Flush (NS 3 ml) 3 ml PER PROTOCOL IV ; Start 08/03/18 at 00:00 Ondansetron HCl (Zofran Inj) 4 mg Q6H PRN IV NAUSEA/VOMITING Last administered on 08/03/18 03:48; Admin Dose 4 MG; Start 08/03/18 at 00:00 Nitroglycerin (Nitroglycerin (Sl Tab) 0.4 Mg) 1 tab Q5M PRN SL .CHEST PAIN; Start 08/03/18 at 00:00 Acetaminophen (Tylenol Tab) 650 mg Q6H PRN PO .PAIN 1-3 OR TEMP Last administered on 08/04/18 03:49; Admin Dose 650 MG; Start 08/03/18 at 00:00 Morphine Sulfate (morphine) 2 mg Q4H PRN IV .PAIN 7-10 Last administered on 08/04/18 03:49; Admin Dose 2 MG; Start 08/03/18 at 00:00 Docusate Sodium (Colace) 100 mg Q12H PRN PO .CONSTIPATION; Start 08/03/18 at 00:00 Bisacodyl (Dulcolax) 5 mg DAILY PRN PO .CONSTIPATION; Start 08/03/18 at 00:00 Ascorbic Acid (Vitamin C) 500 mg DAILY PO Last administered on 08/06/18 08:11; Admin Dose 500 MG; Start 08/03/18 at 09:00 Chlorhexidine Gluconate (Peridex) 15 ml Q12H MM Last administered on 08/06/18 00:07; Admin Dose 15 ML; Start 08/03/18 at 00:00 Digoxin (Digoxin) 0.25 mg DAILY PO Last administered on 08/06/18 08:11; Admin Dose 0.25 MG; Start 08/03/18 at 09:00 Ferrous Sulfate (Ferrous Sulfate (Ec)) 325 mg DAILY PO Last administered on 08/06/18 08:11; Admin Dose 325 MG; Start 08/03/18 at 09:00 Pantoprazole (Protonix Tab) 40 mg AC BREAKFAST PO Last administered on 08/06/18 05:00; Admin Dose 40 MG; Start 08/03/18 at 07:25 Sucralfate (Carafate) 1 gm AC MEALS AND BEDTIME PO Last administered on 08/06/18 21:05; Admin Dose 1 GM; Start 08/03/18 at 07:25 Albuterol (Proventil 0.083% (Neb)) 2.5 mg Q4H RESP THERAPY PRN NEB TRACHEOSTOMY Last administered on 08/05/18 13:39; Admin Dose 2.5 MG; Start 08/02/18 at 23:45 Multivitamins/ Minerals (Theragran-M) 1 tab DAILY PO Last administered on 08/06/18 08:11; Admin Dose 1 TAB; Start 08/03/18 at 09:00 Miscellaneous Information 1 ea NOTE XX ; Start 08/02/18 at 23:45 Glucose (Glutose) 15 gm Q15M PRN PO DECREASED GLUCOSE; Start 08/02/18 at 23:45 Glucose (Glutose) 22.5 gm Q15M PRN PO DECREASED GLUCOSE; Start 08/02/18 at 23:45 Dextrose (D50w Syringe) 25 ml Q15M PRN IV DECREASED GLUCOSE; Start 08/02/18 at 23:45 Dextrose (D50w Syringe) 50 ml Q15M PRN IV DECREASED GLUCOSE; Start 08/02/18 at 23:45 Glucagon (Glucagen) 1 mg Q15M PRN IM DECREASED GLUCOSE; Start 08/02/18 at 23:45 Glucose (Glutose) 15 gm Q15M PRN BUCCAL DECREASED GLUCOSE; Start 08/02/18 at 23:45 Simethicone (Mylicon) 80 mg Q8H PRN PO DISTENSION/GAS/BLOATING Last administered on 08/04/18at 01:55; Admin Dose 80 MG; Start 08/03/18 at 04:30 Amlodipine Besylate (Norvasc) 5 mg DAILY PO Last administered on 08/06/18 08:11; Admin Dose 5 MG; Start 08/03/18 at 09:00 Fluconazole (Diflucan) 100 mg DAILY PO Last administered on 08/06/18 08:12; Admin Dose 100 MG; Start 08/03/18 at 09:00 Linezolid (Zyvox) 600 mg BID PO Last administered on 08/06/18 21:05; Admin Dose 600 MG; Start 08/03/18 at 09:00 Nystatin (Nystatin Cr) 1 applic BID TOP Last administered on 08/07/18 09:33; Admin Dose 1 APPLIC; Start 08/03/18 at 09:00 Amikacin Sulfate (Amikacin Iv Per Pharmacy) AMIKACIN PER PHARMACY NOTE XX ; Start 08/03/18 at 11:30 Insulin Aspart (Novolog Insulin Pen) NOVOLOG *MILD* ALGORI... AC MEALS AND BEDTIME SC ; Start 08/03/18 at 17:25 Linagliptin (Tradjenta) 5 mg DAILY PO Last administered on 08/06/18 08:12; Admin Dose 5 MG; Start 08/04/18 at 09:00 Diagnostic Test (Pha) (Accu-Chek) 1 ea 02 XX Last administered on 08/05/18 01:28; Admin Dose 1 EA; Start 08/04/18 at 02:00 Insulin Aspart (Novolog Insulin Pen) 10 unit WITH MEALS SC Last administered on 08/06/18 18:23; Admin Dose 10 UNIT; Start 08/03/18 at 17:55 Acetylcysteine (Mucomyst) 2 ml Q8H RESP THERAPY NEB Last administered on 08/05/18 13:50; Admin Dose 2 ML; Start 08/04/18 at 08:00 Collagenase (Santyl) 1 applic DAILY TOP Last administered on 08/07/18 09:33; Admin Dose 1 APPLIC; Start 08/04/18 at 09:00 Enoxaparin Sodium (Lovenox) 110 mg Q24H SC Last administered on 08/06/18 08:21; Admin Dose 110 MG; Start 08/04/18 at 09:00; Status Hold Amikacin Sulfate 500 mg/Sodium Chloride 102 ml @ 101.6 mls/ hr Q48H IVPB Last administered on 08/05/18 20:29; Admin Dose 101.6 MLS/HR; Start 08/05/18 at 20:00 Diphenhydramine HCl (Benadryl) 25 mg Q6H PRN IV rash or itching; Start 08/05/18 at 11:00 Metoprolol Tartrate (Lopressor) 25 mg BID PO Last administered on 08/06/18at 21:06; Admin Dose 25 MG; Start 08/06/18 at 13:30 Meds reviewed: Yes Allergies Coded Allergies: meropenem (Verified Allergy, Intermediate, skin rashes, 08/01/18) Allergies Reviewed: Yes Labs/Studies Labs Reviewed: Reviewed by anesthesiologist Result Diagram: 08/07/18 0755 08/07/18 0755 Laboratory Tests 08/07/18 07:55 test: N/A Studies: ECG, CXR (Findings suggestive of pulmonary vascular congestion with small left and moderate right pleural effusions. The right pleural effusion extends along the upper lobe. No significant interval change.; Mild cardiomegaly and aortic atherosclerosis. ) Pre-procedure Exam Last vitals Vital Signs Date Temp Pulse Resp B/P (MAP) Pulse Ox O2 O2 Flow FiO2 Time Delivery Rate 08/07/18 96 08:01 08/07/18 24 98 30 07:50 08/07/18 99.2 153/74 07:35 (100) 08/04/18 Mechanical 15:44 Ventilator Airway: Adequate mouth opening, Adequate thyromental dist Mallampati: Mallampati III Teeth: Abnormal (only x2 lower teeth remaining and they appear in poor co ndition) Lung: Normal Heart: Normal ASA Physical Status ASA physical status: 4 Emergency: None Planned Anesthetic General/MAC: MAC Pre-operative Attestations Prior to commencing anesthesia and surgery, the patient was re-evaluated, there was verification of: *The patient's identity *The results of appropriate recent lab work and preoperative vital signs *The above evaluation not changing prior to induction *Anesthetic plan, risk benefits, alternative and complications discussed with patient/family; questions answered; patient/family understands, accepts and wishes to proceed. CHARLENE MALLOY Aug 07, 2018 10:13
[2018-08-07] MEDS ORDERED: LABETALOL HCL 20MG INJ IV PRN (10:30)
[2018-08-07] MEDS ORDERED: hydrALAzine 20 MG INJ IV PRN (10:30)
[2018-08-07] MEDS ORDERED: ROCURONIUM 50 MG INJ ONE (10:33)
[2018-08-07] MEDS ORDERED: PROPOFOL 20 ML ONE (10:57)
[2018-08-07] MEDS ORDERED: MIDAZOLAM 1 MG/ML 2 ML INJ ONE ×2 (10:58)
[2018-08-07] MEDS ORDERED: FENTAnyl 50 MCG/ML VIAL ONE (10:58)
--- NOTE | 2018-08-07 11:55 | CONS ---
Assessment/Plan Assessment/Plan Hospital Course (Demo Recall) All noted, no events Microbiology: Sputum culture growing Serratia and pseudomonas aeruginosa, multidrug-resistant, urine culture grew Annmarie albicans Antimicrobials: Amikacin, Zyvox, fluconazole Indwelling: Trach PEG Physical examination: Well-developed obese fragile elderly man who is awake in no distress. Head atraumatic normocephalic Neck is supple, tracheostomy present. Chest rise symmetrical breath sounds diminished bases. Heart: S1-S2. Abdomen soft bowel sounds present, extremities without cyanosis, + edema Assessment: 1. Systemic inflammatory response syndrome with ongoing leukocytosis 2. HCAP with loculated pleural effusion possible empyema 3. Acute on chronic kidney disease 4. Dysphagia 5. Fungal UTI 6. Paroxysmal atrial fibrillation 7. Diabetes Plan: CTS recs noted, plan for Pigtail cath. Continue antibiotics Consultation Date/Type/Reason Admit Date/Time Aug 02, 2018 at 22:00 Initial Consult Date Type of Consult id Requesting Provider: DEJUAN ORTIZ MD, [facility] Date/Time of Note DATE: 08/07/18 TIME: 11:53 Exam/Review of Systems Exam Vitals Vital Signs Date Temp Pulse Resp B/P (MAP) Pulse Ox O2 O2 Flow FiO2 Time Delivery Rate 08/07/18 96 08:01 08/07/18 30 08:00 08/07/18 24 98 07:50 08/07/18 99.2 153/74 07:35 (100) 08/04/18 Mechanical 15:44 Ventilator Intake and Output 08/06/18 08/06/18 08/07/18 1515:00 23:00 07:00 IntakeIntake Total 550 ml 720 ml BalanceBalance 550 ml 720 ml Results Result Diagram: 08/07/18 0755 08/07/18 0755 Results 24hrs Laboratory Tests Test 08/06/18 11:57 08/06/18 12:43 08/06/18 17:50 08/06/18 21:01 Bedside Glucose 104 107 89 Lab Scanned Report REFERENCE LAB Test 08/07/18 02:10 08/07/18 07:55 08/07/18 08:04 Bedside Glucose 153 132 White Blood Count 14.3 H Red Blood Count 3.27 L Hemoglobin 8.5 L Hematocrit 26.8 L Mean Corpuscular 82.0 Volume Mean Corpuscular 26.0 L Hemoglobin Mean Corpuscular 31.7 L Hemoglobin Concent Red Cell 17.7 H Distribution Width Platelet Count 213 Mean Platelet 9.0 Volume Immature 0.800 H Granulocytes % Neutrophils % 80.9 H Lymphocytes % 8.5 L Monocytes % 8.8 Eosinophils % 0.6 Basophils % 0.4 Nucleated Red 0.0 Blood Cells % Immature 0.120 H Granulocytes # Neutrophils # 11.6 H Lymphocytes # 1.2 Monocytes # 1.3 H Eosinophils # 0.1 Basophils # 0.1 Nucleated Red 0.0 Blood Cells # Sodium Level 138 Potassium Level 4.9 Chloride Level 108 Carbon Dioxide 25 Level Anion Gap 5 Blood Urea 26 H Nitrogen Creatinine 2.06 H Est Glomerular 32 L Filtrat Rate mL/min Glucose Level 108 Calcium Level 8.7 Phosphorus Level 4.9 Magnesium Level 2.2 Medications Medication Current Medications IV Flush (NS 3 ml) 3 ml PER PROTOCOL IV ; Start 08/03/18 at 00:00 Ondansetron HCl (Zofran Inj) 4 mg Q6H PRN IV NAUSEA/VOMITING Last administered on 08/03/18 03:48; Admin Dose 4 MG; Start 08/03/18 at 00:00 Nitroglycerin (Nitroglycerin (Sl Tab) 0.4 Mg) 1 tab Q5M PRN SL .CHEST PAIN; Start 08/03/18 at 00:00 Acetaminophen (Tylenol Tab) 650 mg Q6H PRN PO .PAIN 1-3 OR TEMP Last administered on 08/04/18 03:49; Admin Dose 650 MG; Start 08/03/18 at 00:00 Morphine Sulfate (morphine) 2 mg Q4H PRN IV .PAIN 7-10 Last administered on 08/04/18 03:49; Admin Dose 2 MG; Start 08/03/18 at 00:00 Docusate Sodium (Colace) 100 mg Q12H PRN PO .CONSTIPATION; Start 08/03/18 at 00:00 Bisacodyl (Dulcolax) 5 mg DAILY PRN PO .CONSTIPATION; Start 08/03/18 at 00:00 Ascorbic Acid (Vitamin C) 500 mg DAILY PO Last administered on 08/06/18 08:11; Admin Dose 500 MG; Start 08/03/18 at 09:00 Chlorhexidine Gluconate (Peridex) 15 ml Q12H MM Last administered on 4/22/19at 00:07; Admin Dose 15 ML; Start 08/03/18 at 00:00 Digoxin (Digoxin) 0.25 mg DAILY PO Last administered on 08/06/18 08:11; Admin Dose 0.25 MG; Start 08/03/18 at 09:00 Ferrous Sulfate (Ferrous Sulfate (Ec)) 325 mg DAILY PO Last administered on 08/06/18 08:11; Admin Dose 325 MG; Start 08/03/18 at 09:00 Pantoprazole (Protonix Tab) 40 mg AC BREAKFAST PO Last administered on 08/06/18 05:00; Admin Dose 40 MG; Start 08/03/18 at 07:25 Sucralfate (Carafate) 1 gm AC MEALS AND BEDTIME PO Last administered on 21:05; Admin Dose 1 GM; Start 08/03/18 at 07:25 Albuterol (Proventil 0.083% (Neb)) 2.5 mg Q4H RESP THERAPY PRN NEB TRACHEOSTOMY Last administered on 08/05/18 13:39; Admin Dose 2.5 MG; Start 08/02/18 at 23:45 Multivitamins/ Minerals (Theragran-M) 1 tab DAILY PO Last administered on 08/06/18 08:11; Admin Dose 1 TAB; Start 08/03/18 at 09:00 Miscellaneous Information 1 ea NOTE XX ; Start 08/02/18 at 23:45 Glucose (Glutose) 15 gm Q15M PRN PO DECREASED GLUCOSE; Start 08/02/18 at 23:45 Glucose (Glutose) 22.5 gm Q15M PRN PO DECREASED GLUCOSE; Start 08/02/18 at 23:45 Dextrose (D50w Syringe) 25 ml Q15M PRN IV DECREASED GLUCOSE; Start 08/02/18 at 23:45 Dextrose (D50w Syringe) 50 ml Q15M PRN IV DECREASED GLUCOSE; Start 08/02/18 at 23:45 Glucagon (Glucagen) 1 mg Q15M PRN IM DECREASED GLUCOSE; Start 08/02/18 at 23:45 Glucose (Glutose) 15 gm Q15M PRN BUCCAL DECREASED GLUCOSE; Start 08/02/18 at 23:45 Simethicone (Mylicon) 80 mg Q8H PRN PO DISTENSION/GAS/BLOATING Last administered on 08/04/18 01:55; Admin Dose 80 MG; Start 08/03/18 at 04:30 Amlodipine Besylate (Norvasc) 5 mg DAILY PO Last administered on 08/06/18 08:11; Admin Dose 5 MG; Start 08/03/18 at 09:00 Fluconazole (Diflucan) 100 mg DAILY PO Last administered on 08/06/18 08:12; Admin Dose 100 MG; Start 08/03/18 at 09:00 Linezolid (Zyvox) 600 mg BID PO Last administered on 08/06/18 21:05; Admin Dose 600 MG; Start 08/03/18 at 09:00 Nystatin (Nystatin Cr) 1 applic BID TOP Last administered on 08/07/18 09:33; A dmin Dose 1 APPLIC; Start 08/03/18 at 09:00 Amikacin Sulfate (Amikacin Iv Per Pharmacy) AMIKACIN PER PHARMACY NOTE XX ; Start 08/03/18 at 11:30 Insulin Aspart (Novolog Insulin Pen) NOVOLOG *MILD* ALGORI... AC MEALS AND BEDTIME SC ; Start 08/03/18 at 17:25 Linagliptin (Tradjenta) 5 mg DAILY PO Last administered on 08/06/18 08:12; Admin Dose 5 MG; Start 08/04/18 at 09:00 Diagnostic Test (Pha) (Accu-Chek) 1 ea 02 XX Last administered on 08/05/18 01:28; Admin Dose 1 EA; Start 08/04/18 at 02:00 Insulin Aspart (Novolog Insulin Pen) 10 unit WITH MEALS SC Last administered on 08/06/18 18:23; Admin Dose 10 UNIT; Start 08/03/18 at 17:55 Acetylcysteine (Mucomyst) 2 ml Q8H RESP THERAPY NEB Last administered on 08/05/18 13:50; Admin Dose 2 ML; Start 08/04/18 at 08:00 Collagenase (Santyl) 1 applic DAILY TOP Last administered on 08/07/18 09:33; Admin Dose 1 APPLIC; Start 08/04/18 at 09:00 Enoxaparin Sodium (Lovenox) 110 mg Q24H SC Last administered on 08/06/18 08:21; Admin Dose 110 MG; Start 08/04/18 at 09:00; Status Hold Amikacin Sulfate 500 mg/Sodium Chloride 102 ml @ 101.6 mls/ hr Q48H IVPB Last administered on 08/05/18at 20:29; Admin Dose 101.6 MLS/HR; Start 08/05/18 at 20:00 Diphenhydramine HCl (Benadryl) 25 mg Q6H PRN IV rash or itching; Start 08/05/18 at 11:00 Metoprolol Tartrate (Lopressor) 25 mg BID PO Last administered on 08/06/18at 21:06; Admin Dose 25 MG; Start 08/06/18 at 13:30 Labetalol HCl (Labetalol) 5 mg PACU ORDER PRN IV HIGH BLOOD PRESSURE; Start 08/07/18 at 10:30; Stop 08/07/18 at 16:00 Hydralazine HCl (Apresoline) 5 mg PACU ORDER PRN IV HIGH BLOOD PRESSURE; Start 08/07/18 at 10:30; Stop 08/07/18 at 16:00 JUANIS FINN NP Aug 07, 2018 11:55
[2018-08-07] MEDS: CHLORHEXIDINE GLUCONATE 15 ML UD CUP MM SCH ×2 (12:00)
--- NOTE | 2018-08-07 13:21 | PN ---
Date/Time of Note Date/Time of Note DATE: 08/07/18 TIME: 13:18 Assessment/Plan VTE Prophylaxis Risk score (from Ns)>0 risk: 11 SCD applied (from Ns): No SCD contraindicated: other Pharmacological prophylaxis: LMWH Lines/Catheters IV Catheter [facility]from [facility]): Mid Line Urinary Cath still in place: No Assessment/Plan Hospital Course S: Patient seen by CTS team yesterday and renal team this morning. Presently off the floor getting pigtail catheter insertion. O: VS- see below PE: -Unable to be performed today because patient presently off the floor at radiology Assessment/Plan: 68-year-old man with a past medical history of chronic respiratory failure status post trach, who was transferred from [facility] to [facility] for evaluation of loculated empyema ad possible VATS. The patient was a previous resident of [facility], was noted to have a loculated fluid effusion. The patient, after attempted bronchoscopy and post chest-tube without improvement of loculated fluid was subsequently transferred to [facility] for surgical evaluation. #1 acute on chronic hypoxemic and hypercarbic respiratory failure-Patient is on chronic ventilatory support. -Continue vent management as per pulmonary, antibiotics as ordered by ID team #2 Right pulmonary opacification plus infiltrates-Suspicion likely for large loculated thick pleural effusion, loculated empyema s/p failed bronchoscopy and chest tube. -Patient is currently on broad-spectrum antibiotics of Zyvox, fluconazole, as well as amikacin. We will continue antibiotics at the current time. ID consulted -CT surgery has been consulted by pulmonary medicin -again patient getting pigtail catheter placement for this presently, follow-up post procedure recommendations #3 Paroxysmal atrial fibrillation-Currently in sinus rhythm. - Continue to monitor. - Xarelto on hold at the current time, was switched to Lovenox earlier this admission but that was also held given procedure patient getting presently for PICC insertion, will resume afterwards. #4 anemia of chronic disease: Patient received PRBC transfusion 3 days ago, hemoglobin stable since then -Monitor, transfuse for Hgb<7 or for symptomatic anemia. #5 Chronic kidney disease stage III r/o FROILAN: Creatinine today 2.08 -nephro consulted, f/u trend and recommendations #6 diabetes mellitus: A1c was 8.6, sugars are stable -Monitor sugars #7 diastolic CHF - chronic with bilateral lower extremity edema-may also be related to anasarca from #8 -Monitor for now #8 Hepatic cirrhosis-Chest CT shows possible liver cirrhosis confirmed on USS. -Monitor, f/u hepatitis serologies. #9 DVT GI prophylaxis: lovenox, Protonix Result Diagram: 08/07/18 0755 08/07/18 0755 Results 24hrs Laboratory Tests Test 08/06/18 17:50 08/06/18 21:01 08/07/18 02:10 08/07/18 07:55 Bedside Glucose 107 89 153 White Blood Count 14.3 H Red Blood Count 3.27 L Hemoglobin 8.5 L Hematocrit 26.8 L Mean Corpuscular 82.0 Volume Mean Corpuscular 26.0 L Hemoglobin Mean Corpuscular 31.7 L Hemoglobin Concent Red Cell 17.7 H Distribution Width Platelet Count 213 Mean Platelet Volume 9.0 Immature 0.800 H Granulocytes % Neutrophils % 80.9 H Lymphocytes % 8.5 L Monocytes % 8.8 Eosinophils % 0.6 Basophils % 0.4 Nucleated Red Blood 0.0 Cells % Immature 0.120 H Granulocytes # Neutrophils # 11.6 H Lymphocytes # 1.2 Monocytes # 1.3 H Eosinophils # 0.1 Basophils # 0.1 Nucleated Red Blood 0.0 Cells # Sodium Level 138 Potassium Level 4.9 Chloride Level 108 Carbon Dioxide Level 25 Anion Gap 5 Blood Urea Nitrogen 26 H Creatinine 2.06 H Est Glomerular 32 L Filtrat Rate mL/min Glucose Level 108 Calcium Level 8.7 Phosphorus Level 4.9 Magnesium Level 2.2 Test 08/07/18 08:04 Bedside Glucose 132 Exam/Review of Systems Exam Vitals Vital Signs Date Temp Pulse Resp B/P (MAP) Pulse Ox O2 O2 Flow FiO2 Time Delivery Rate 08/07/18 89 12:01 08/07/18 30 08:00 08/07/18 24 98 07:50 08/07/18 99.2 153/74 07:35 (100) 08/04/18 Mechanical 15:44 Ventilator Intake and Output 08/06/18 08/06/18 08/07/18 1515:00 23:00 07:00 IntakeIntake Total 550 ml 720 ml BalanceBalance 550 ml 720 ml Results Results 24hrs Laboratory Tests Test 08/06/18 17:50 08/06/18 21:01 08/07/18 02:10 08/07/18 07:55 Bedside Glucose 107 89 153 White Blood Count 14.3 H Red Blood Count 3.27 L Hemoglobin 8.5 L Hematocrit 26.8 L Mean Corpuscular 82.0 Volume Mean Corpuscular 26.0 L Hemoglobin Mean Corpuscular 31.7 L Hemoglobin Concent Red Cell 17.7 H Distribution Width Platelet Count 213 Mean Platelet Volume 9.0 Immature 0.800 H Granulocytes % Neutrophils % 80.9 H Lymphocytes % 8.5 L Monocytes % 8.8 Eosinophils % 0.6 Basophils % 0.4 Nucleated Red Blood 0.0 Cells % Immature 0.120 H Granulocytes # Neutrophils # 11.6 H Lymphocytes # 1.2 Monocytes # 1.3 H Eosinophils # 0.1 Basophils # 0.1 Nucleated Red Blood 0.0 Cells # Sodium Level 138 Potassium Level 4.9 Chloride Level 108 Carbon Dioxide Level 25 Anion Gap 5 Blood Urea Nitrogen 26 H Creatinine 2.06 H Est Glomerular 32 L Filtrat Rate mL/min Glucose Level 108 Calcium Level 8.7 Phosphorus Level 4.9 Magnesium Level 2.2 Test 08/07/18 08:04 Bedside Glucose 132 Medications Medication Current Medications IV Flush (NS 3 ml) 3 ml PER PROTOCOL IV ; Start 08/03/18 at 00:00 Ondansetron HCl (Zofran Inj) 4 mg Q6H PRN IV NAUSEA/VOMITING Last administered on 08/03/18at 03:48; Admin Dose 4 MG; Start 08/03/18 at 00:00 Nitroglycerin (Nitroglycerin (Sl Tab) 0.4 Mg) 1 tab Q5M PRN SL .CHEST PAIN; Start 08/03/18 at 00:00 Acetaminophen (Tylenol Tab) 650 mg Q6H PRN PO .PAIN 1-3 OR TEMP Last administered on 08/04/18at 03:49; Admin Dose 650 MG; Start 08/03/18 at 00:00 Morphine Sulfate (morphine) 2 mg Q4H PRN IV .PAIN 7-10 Last administered on 08/04/18at 03:49; Admin Dose 2 MG; Start 08/03/18 at 00:00 Docusate Sodium (Colace) 100 mg Q12H PRN PO .CONSTIPATION; Start 08/03/18 at 00:00 Bisacodyl (Dulcolax) 5 mg DAILY PRN PO .CONSTIPATION; Start 08/03/18 at 00:00 Ascorbic Acid (Vitamin C) 500 mg DAILY PO Last administered on 08/06/18 08:11; Admin Dose 500 MG; Start 08/03/18 at 09:00 Chlorhexidine Gluconate (Peridex) 15 ml Q12H MM Last administered on 08/06/18 00:07; Admin Dose 15 ML; Start 08/03/18 at 00:00 Digoxin (Digoxin) 0.25 mg DAILY PO Last administered on 08/06/18 08:11; Admin Dose 0.25 MG; Start 08/03/18 at 09:00 Ferrous Sulfate (Ferrous Sulfate (Ec)) 325 mg DAILY PO Last administered on 08/06/18 08:11; Admin Dose 325 MG; Start 08/03/18 at 09:00 Pantoprazole (Protonix Tab) 40 mg AC BREAKFAST PO Last administered on 08/06/18 05:00; Admin Dose 40 MG; Start 08/03/18 at 07:25 Sucralfate (Carafate) 1 gm AC MEALS AND BEDTIME PO Last administered on 08/06/18 21:05; Admin Dose 1 GM; Start 08/03/18 at 07:25 Albuterol (Proventil 0.083% (Neb)) 2.5 mg Q4H RESP THERAPY PRN NEB TRACHEOSTOMY Last administered on 08/05/18 13:39; Admin Dose 2.5 MG; Start 08/02/18 at 23:45 Multivitamins/ Minerals (Theragran-M) 1 tab DAILY PO Last administered on 08/06/18 08:11; Admin Dose 1 TAB; Start 08/03/18 at 09:00 Miscellaneous Information 1 ea NOTE XX ; Start 08/02/18 at 23:45 Glucose (Glutose) 15 gm Q15M PRN PO DECREASED GLUCOSE; Start 08/02/18 at 23:45 Glucose (Glutose) 22.5 gm Q15M PRN PO DECREASED GLUCOSE; Start 08/02/18 at 23:45 Dextrose (D50w Syringe) 25 ml Q15M PRN IV DECREASED GLUCOSE; Start 08/02/18 at 23:45 Dextrose (D50w Syringe) 50 ml Q15M PRN IV DECREASED GLUCOSE; Start 08/02/18 at 23:45 Glucagon (Glucagen) 1 mg Q15M PRN IM DECREASED GLUCOSE; Start 08/02/18 at 23:45 Glucose (Glutose) 15 gm Q15M PRN BUCCAL DECREASED GLUCOSE; Start 08/02/18 at 23:45 Simethicone (Mylicon) 80 mg Q8H PRN PO DISTENSION/GAS/BLOATING Last administered on 08/04/18at 01:55; Admin Dose 80 MG; Start 08/03/18 at 04:30 Amlodipine Besylate (Norvasc) 5 mg DAILY PO Last administered on 08/06/18 08:11; Admin Dose 5 MG; Start 08/03/18 at 09:00 Fluconazole (Diflucan) 100 mg DAILY PO Last administered on 08/06/18 08:12; Admin Dose 100 MG; Start 08/03/18 at 09:00 Linezolid (Zyvox) 600 mg BID PO Last administered on 08/06/18at 21:05; Admin Dose 600 MG; Start 08/03/18 at 09:00 Nystatin (Nystatin Cr) 1 applic BID TOP Last administered on 08/07/18at 09:33; Admin Dose 1 APPLIC; Start 08/03/18 at 09:00 Amikacin Sulfate (Amikacin Iv Per Pharmacy) AMIKACIN PER PHARMACY NOTE XX ; Start 08/03/18 at 11:30 Insulin Aspart (Novolog Insulin Pen) NOVOLOG *MILD* ALGORI... AC MEALS AND BEDTIME SC ; Start 08/03/18 at 17:25 Linagliptin (Tradjenta) 5 mg DAILY PO Last administered on 08/06/18at 08:12; Admin Dose 5 MG; Start 08/04/18 at 09:00 Diagnostic Test (Pha) (Accu-Chek) 1 ea 02 XX Last administered on 08/05/18at 01:28; Admin Dose 1 EA; Start 08/04/18 at 02:00 Insulin Aspart (Novolog Insulin Pen) 10 unit WITH MEALS SC Last administered on 08/06/18at 18:23; Admin Dose 10 UNIT; Start 08/03/18 at 17:55 Acetylcysteine (Mucomyst) 2 ml Q8H RESP THERAPY NEB Last administered on 08/05/18at 13:50; Admin Dose 2 ML; Start 08/04/18 at 08:00 Collagenase (Santyl) 1 applic DAILY TOP Last administered on 08/07/18at 09:33; Admin Dose 1 APPLIC; Start 08/04/18 at 09:00 Enoxaparin Sodium (Lovenox) 110 mg Q24H SC Last administered on 08/06/18at 08:21; Admin Dose 110 MG; Start 08/04/18 at 09:00; Status Hold Amikacin Sulfate 500 mg/Sodium Chloride 102 ml @ 101.6 mls/ hr Q48H IVPB Last administered on 08/05/18at 20:29; Admin Dose 101.6 MLS/HR; Start 08/05/18 at 20:00 Diphenhydramine HCl (Benadryl) 25 mg Q6H PRN IV rash or itching; Start 08/05/18 at 11:00 Metoprolol Tartrate (Lopressor) 25 mg BID PO Last administered on 08/06/18at 21:06; Admin Dose 25 MG; Start 08/06/18 at 13:30 Labetalol HCl (Labetalol) 5 mg PACU ORDER PRN IV HIGH BLOOD PRESSURE; Start 08/07/18 at 10:30; Stop 08/07/18 at 16:00 Hydralazine HCl (Apresoline) 5 mg PACU ORDER PRN IV HIGH BLOOD PRESSURE; Start 08/07/18 at 10:30; Stop 08/07/18 at 16:00 JEIMY LOMAS Aug 07, 2018 13:21
--- NOTE | 2018-08-07 13:59 | HPN ---
Date/Time of Note Date/Time of Note DATE: 08/07/18 TIME: 13:59 Interval H&P Admission Note Pt. seen H&P reviewed: No system changes FATIMAH WYLIE MD Aug 07, 2018 13:59
--- NOTE | 2018-08-07 15:34 | CONS ---
Consult Date/Type/Reason Admit Date/Time Aug 02, 2018 at 22:00 Initial Consult Date 08/03/18 Type of Consult Pulmonary Requesting Provider: DEJUAN ORTIZ MD, [facility] Date/Time of Note DATE: 08/07/18 TIME: 15:33 Subjective Patient stable this morning. Had pigtail catheter placed. Objective Vital Signs Date Temp Pulse Resp B/P (MAP) Pulse Ox O2 O2 Flow FiO2 Time Delivery Rate 08/07/18 98.2 84 14 110/74 15:00 (86) 08/07/18 100 13:53 08/07/18 30 08:00 08/04/18 Mechanical 15:44 Ventilator Intake and Output 08/06/18 08/06/18 08/07/18 1515:00 23:00 07:00 IntakeIntake Total 550 ml 720 ml BalanceBalance 550 ml 720 ml Exam GENERAL: Elderly gentleman on mechanical ventilation. VITAL SIGNS: per chart NECK: Supple. No JVD or lymphadenopathy. CARDIAC EXAM: S1, S2. No added sounds or murmurs. CHEST: Diminished air entry bilaterally ABDOMEN: Soft, nontender. No guarding or rebound. EXTREMITIES: No cyanosis, clubbing edema +1 NEUROLOGIC: Generalized weakness. Vent Setting Ventilator Support Mode: AC Fraction of Inspired Oxygen pe: 30 Positive End Expiratory Pressu: 5.0 Results/Medications Result Diagram: 08/07/18 0755 08/07/18 0755 Results 24 hrs Laboratory Tests Test 08/06/18 17:50 08/06/18 21:01 08/07/18 02:10 08/07/18 07:55 Bedside Glucose 107 89 153 White Blood Count 14.3 H Red Blood Count 3.27 L Hemoglobin 8.5 L Hematocrit 26.8 L Mean Corpuscular 82.0 Volume Mean Corpuscular 26.0 L Hemoglobin Mean Corpuscular 31.7 L Hemoglobin Concent Red Cell 17.7 H Distribution Width Platelet Count 213 Mean Platelet Volume 9.0 Immature 0.800 H Granulocytes % Neutrophils % 80.9 H Lymphocytes % 8.5 L Monocytes % 8.8 Eosinophils % 0.6 Basophils % 0.4 Nucleated Red Blood 0.0 Cells % Immature 0.120 H Granulocytes # Neutrophils # 11.6 H Lymphocytes # 1.2 Monocytes # 1.3 H Eosinophils # 0.1 Basophils # 0.1 Nucleated Red Blood 0.0 Cells # Sodium Level 138 Potassium Level 4.9 Chloride Level 108 Carbon Dioxide Level 25 Anion Gap 5 Blood Urea Nitrogen 26 H Creatinine 2.06 H Est Glomerular 32 L Filtrat Rate mL/min Glucose Level 108 Calcium Level 8.7 Phosphorus Level 4.9 Magnesium Level 2.2 Test 08/07/18 08:04 Bedside Glucose 132 Medications Current Medications IV Flush (NS 3 ml) 3 ml PER PROTOCOL IV ; Start 08/03/18 at 00:00 Ondansetron HCl (Zofran Inj) 4 mg Q6H PRN IV NAUSEA/VOMITING Last administered on 08/03/18 03:48; Admin Dose 4 MG; Start 08/03/18 at 00:00 Nitroglycerin (Nitroglycerin (Sl Tab) 0.4 Mg) 1 tab Q5M PRN SL .CHEST PAIN; Start 08/03/18 at 00:00 Acetaminophen (Tylenol Tab) 650 mg Q6H PRN PO .PAIN 1-3 OR TEMP Last administered on 08/04/18 03:49; Admin Dose 650 MG; Start 08/03/18 at 00:00 Morphine Sulfate (morphine) 2 mg Q4H PRN IV .PAIN 7-10 Last administered on 08/04/18 03:49; Admin Dose 2 MG; Start 08/03/18 at 00:00 Docusate Sodium (Colace) 100 mg Q12H PRN PO .CONSTIPATION; Start 08/03/18 at 00:00 Bisacodyl (Dulcolax) 5 mg DAILY PRN PO .CONSTIPATION; Start 08/03/18 at 00:00 Ascorbic Acid (Vitamin C) 500 mg DAILY PO Last administered on 08/06/18 08:11; Admin Dose 500 MG; Start 08/03/18 at 09:00 Chlorhexidine Gluconate (Peridex) 15 ml Q12H MM Last administered on 08/06/18 00:07; Admin Dose 15 ML; Start 08/03/18 at 00:00 Digoxin (Digoxin) 0.25 mg DAILY PO Last administered on 08/06/18 08:11; Admin Dose 0.25 MG; Start 08/03/18 at 09:00 Ferrous Sulfate (Ferrous Sulfate (Ec)) 325 mg DAILY PO Last administered on 08/06/18 08:11; Admin Dose 325 MG; Start 08/03/18 at 09:00 Pantoprazole (Protonix Tab) 40 mg AC BREAKFAST PO Last administered on 08/06/18 05:00; Admin Dose 40 MG; Start 08/03/18 at 07:25 Sucralfate (Carafate) 1 gm AC MEALS AND BEDTIME PO Last administered on 08/06/18 21:05; Admin Dose 1 GM; Start 08/03/18 at 07:25 Albuterol (Proventil 0.083% (Neb)) 2.5 mg Q4H RESP THERAPY PRN NEB TRACHEOSTOMY Last administered on 08/05/18at 13:39; Admin Dose 2.5 MG; Start 08/02/18 at 23:45 Multivitamins/ Minerals (Theragran-M) 1 tab DAILY PO Last administered on 08/06/18 08:11; Admin Dose 1 TAB; Start 08/03/18 at 09:00 Miscellaneous Information 1 ea NOTE XX ; Start 08/02/18 at 23:45 Glucose (Glutose) 15 gm Q15M PRN PO DECREASED GLUCOSE; Start 08/02/18 at 23:45 Glucose (Glutose) 22.5 gm Q15M PRN PO DECREASED GLUCOSE; Start 08/02/18 at 23:45 Dextrose (D50w Syringe) 25 ml Q15M PRN IV DECREASED GLUCOSE; Start 08/02/18 at 23:45 Dextrose (D50w Syringe) 50 ml Q15M PRN IV DECREASED GLUCOSE; Start 08/02/18 at 23:45 Glucagon (Glucagen) 1 mg Q15M PRN IM DECREASED GLUCOSE; Start 08/02/18 at 23:45 Glucose (Glutose) 15 gm Q15M PRN BUCCAL DECREASED GLUCOSE; Start 08/02/18 at 23:45 Simethicone (Mylicon) 80 mg Q8H PRN PO DISTENSION/GAS/BLOATING Last administered on 08/04/18at 01:55; Admin Dose 80 MG; Start 08/03/18 at 04:30 Amlodipine Besylate (Norvasc) 5 mg DAILY PO Last administered on 08/06/18 08:11; Admin Dose 5 MG; Start 08/03/18 at 09:00 Fluconazole (Diflucan) 100 mg DAILY PO Last administered on 08/06/18 08:12; Admin Dose 100 MG; Start 08/03/18 at 09:00 Linezolid (Zyvox) 600 mg BID PO Last administered on 08/06/18at 21:05; Admin Dose 600 MG; Start 08/03/18 at 09:00 Nystatin (Nystatin Cr) 1 applic BID TOP Last administered on 08/07/18 09:33; Admin Dose 1 APPLIC; Start 08/03/18 at 09:00 Amikacin Sulfate (Amikacin Iv Per Pharmacy) AMIKACIN PER PHARMACY NOTE XX ; Start 08/03/18 at 11:30 Insulin Aspart (Novolog Insulin Pen) NOVOLOG *MILD* ALGORI... AC MEALS AND BEDTIME SC ; Start 08/03/18 at 17:25 Linagliptin (Tradjenta) 5 mg DAILY PO Last administered on 08/06/18 08:12; Admin Dose 5 MG; Start 08/04/18 at 09:00 Diagnostic Test (Pha) (Accu-Chek) 1 ea 02 XX Last administered on 08/05/18 01:28; Admin Dose 1 EA; Start 08/04/18 at 02:00 Insulin Aspart (Novolog Insulin Pen) 10 unit WITH MEALS SC Last administered on 08/06/18 18:23; Admin Dose 10 UNIT; Start 08/03/18 at 17:55 Acetylcysteine (Mucomyst) 2 ml Q8H RESP THERAPY NEB Last administered on 08/05/18at 13:50; Admin Dose 2 ML; Start 08/04/18 at 08:00 Collagenase (Santyl) 1 applic DAILY TOP Last administered on 08/07/18 09:33; Admin Dose 1 APPLIC; Start 08/04/18 at 09:00 Enoxaparin Sodium (Lovenox) 110 mg Q24H SC Last administered on 08/06/18 08:21; Admin Dose 110 MG; Start 08/04/18 at 09:00; Status Hold Amikacin Sulfate 500 mg/Sodium Chloride 102 ml @ 101.6 mls/ hr Q48H IVPB Last administered on 08/05/18at 20:29; Admin Dose 101.6 MLS/HR; Start 08/05/18 at 20:00 Diphenhydramine HCl (Benadryl) 25 mg Q6H PRN IV rash or itching; Start 08/05/18 at 11:00 Metoprolol Tartrate (Lopressor) 25 mg BID PO Last administered on 08/06/18at 21:06; Admin Dose 25 MG; Start 08/06/18 at 13:30 Labetalol HCl (Labetalol) 5 mg PACU ORDER PRN IV HIGH BLOOD PRESSURE; Start 08/07/18 at 10:30; Stop 08/07/18 at 16:00 Hydralazine HCl (Apresoline) 5 mg PACU ORDER PRN IV HIGH BLOOD PRESSURE; Start 08/07/18 at 10:30; Stop 08/07/18 at 16:00 Assessment/Plan Hospital Course (Demo Recall) Assessment 1. Vent dependent respiratory failure 2. Loculated right pleural effusion with extrinsic compression causing intermittent lung collapse. 3. Renal insufficiency Plan 1. Status post pigtail catheter placement. 2. If unsuccessful then proceed to thoracic surgery decortication. 3. Continue antibiotics. Repeat chest x-[facility] in DEJUAN Wilkinson MD, [facility] Aug 07, 2018 15:34
--- NOTE | 2018-08-07 19:33 | CONS ---
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 NPO today for procedure. Lantus dose cut back last night from 18 to 10 units. Has remained in goal range today although BG gently rising throughout the day. Will resume previous effective dose of lantus 18 units qhs. Cont. Novolog 10 units qac and reeval tomorrow. 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 Consultation Date/Type/Reason Admit Date/Time Aug 02, 2018 at 22:00 Initial Consult Date 08/03/18 Type of Consult Endocrinology Reason for Consultation T2DM management Requesting Provider: DEJUAN ORTIZ MD, [facility] Date/Time of Note DATE: 08/07/18 TIME: 19:31 24 HR Interval Summary Constitutional: no complaints, improved (s/p B chest tube placement today) Detailed Summary Respiratory: no complaints Cardiovascular: no complaints Gastrointestinal: no complaints Genitourinary: no complaints Musculoskeletal: no complaints Neurologic: no complaints Exam/Review of Systems Exam Vitals VS - Last 72 Hours, by Label Date Temp Pulse Resp B/P (MAP) Pulse Ox O2 O2 Flow FiO2 Time Delivery Rate 08/07/18 96 22 98 30 17:33 08/07/18 98.8 90 16 154/77 100 16:05 (102) 08/07/18 77 16:01 08/07/18 98.6 86 20 133/67 100 15:35 (89) 08/07/18 96 22 98 30 15:00 08/07/18 98.2 84 14 110/74 15:00 (86) 08/07/18 98.9 14 113/91 14:30 (98) 08/07/18 80 14 129/68 100 13:53 (88) 08/07/18 80 14 121/67 100 13:48 (85) 08/07/18 80 14 130/65 100 13:43 (86) 08/07/18 92 15 145/70 100 13:38 (95) 08/07/18 84 14 128/68 100 13:33 (88) 08/07/18 92 16 126/65 100 13:29 (85) 08/07/18 98.6 16 138/74 100 13:23 (95) 08/07/18 89 12:01 08/07/18 95 23 98 30 09:20 08/07/18 96 08:01 08/07/18 30 08:00 08/07/18 95 24 98 30 07:50 08/07/18 99.2 98 22 153/74 96 07:35 (100) 08/07/18 95 25 98 30 05:13 08/07/18 98.8 89 18 153/67 96 04:27 (95) 08/07/18 87 04:00 08/07/18 98 24 96 30 03:48 08/07/18 78 19 96 30 01:23 08/07/18 79 00:00 08/06/18 98.9 78 18 128/57 96 23:41 (80) 08/06/18 81 22 97 30 23:15 08/06/18 88 21:25 08/06/18 96 28 97 30 21:19 08/06/18 30 20:25 08/06/18 94 21 98 30 19:36 08/06/18 99.0 84 19 159/77 97 19:27 (104) 08/06/18 95 24 98 30 17:43 08/06/18 84 16:01 08/06/18 98.5 99 19 163/72 92 15:41 (102) 08/06/18 95 22 98 30 15:20 08/06/18 96 22 98 30 13:25 08/06/18 98.7 87 18 146/76 97 12:05 (99) 08/06/18 102 12:01 08/06/18 96 24 98 30 11:24 08/06/18 96 23 98 30 09:23 08/06/18 90 08:01 08/06/18 99.0 91 15 174/78 95 07:42 (110) 08/06/18 95 23 98 30 07:20 08/06/18 90 22 95 30 04:50 08/06/18 94 04:00 08/06/18 98.0 95 16 125/66 98 04:00 (85) 08/06/18 100 23 98 30 03:08 08/06/18 89 21 95 30 01:06 08/06/18 83 00:00 08/06/18 99.5 92 16 158/61 99 00:00 (93) 08/05/18 88 24 98 30 22:55 08/05/18 90 21:48 08/05/18 90 24 96 30 21:00 08/05/18 30 20:14 08/05/18 88 20:00 08/05/18 55 20:00 08/05/18 99.2 90 18 132/62 97 20:00 (85) 08/05/18 30 18:57 08/05/18 88 18 98 40 18:56 08/05/18 89 21 98 30 17:38 08/05/18 79 16:01 08/05/18 99.0 91 18 142/75 98 15:42 (97) 08/05/18 88 24 96 30 15:15 08/05/18 87 20 97 30 13:15 08/05/18 81 12:01 08/05/18 86 16 99 30 11:40 08/05/18 99.4 88 17 158/69 98 11:33 (98) 08/05/18 90 16 100 30 09:30 08/05/18 88 08:01 08/05/18 86 14 98 40 07:39 08/05/18 98.7 96 20 135/76 96 07:36 (95) 08/05/18 84 14 96 30 04:55 08/05/18 80 04:00 08/05/18 99.3 83 20 142/65 98 04:00 (90) 08/05/18 99 19 99 30 02:56 08/05/18 82 24 98 30 00:57 08/05/18 85 00:00 08/04/18 99.2 82 18 148/66 100 23:59 (93) 08/04/18 82 26 98 30 23:55 08/04/18 89 25 98 30 21:06 08/04/18 40 20:00 08/04/18 92 20:00 08/04/18 100.0 85 20 145/66 99 20:00 (92) Vital Signs Date Temp Pulse Resp B/P (MAP) Pulse Ox O2 O2 Flow FiO2 Time Delivery Rate 08/07/18 96 22 98 30 17:33 08/07/18 98.8 154/77 16:05 (102) 08/04/18 Mechanical 15:44 Ventilator Intake and Output 08/06/18 08/06/18 08/07/18 1515:00 23:00 07:00 IntakeIntake Total 550 ml 720 ml BalanceBalance 550 ml 720 ml Constitutional: alert, oriented, obese Neck: other ((+) trach on vent) Respiratory: clear to auscultation, normal air movement Cardiovascular: regular rate and rhythm, edema (3+ BLE); No murmurs/extra sounds, No rub Gastrointestinal: soft, nl liver, spleen, bowel sounds, distended, tender (diffuse); No non-tender, No mass, No rebound or guarding Musculoskeletal: nl extremities to inspection Extremities: edema (3+ BLE); No cyanosis, No clubbing 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, nl mental status, nl speech, nl strength Additional Comments Bedside Glucose - 72 Hours Test 08/04/18 20:55 08/05/18 01:28 08/05/18 08:19 08/05/18 12:25 Bedside 131 126 100 107 Glucose mg/dL (70-220) mg/dL (70-220) mg/dL (70-220) mg/dL (70-220) Test 08/05/18 17:28 08/05/18 20:27 08/06/18 01:49 08/06/18 07:53 Bedside 93 100 90 99 Glucose mg/dL (70-220) mg/dL (70-220) mg/dL (70-220) mg/dL (70-220) Test 08/06/18 11:57 08/06/18 17:50 08/06/18 21:01 08/07/18 02:10 Bedside 104 107 89 153 Glucose mg/dL (70-220) mg/dL (70-220) mg/dL (70-220) mg/dL (70-220) Test 08/07/18 08:04 08/07/18 17:16 Bedside 132 154 Glucose mg/dL (70-220) mg/dL (70-220) Results Result Diagram: 08/07/18 0755 08/07/18 0755 Results 24hrs Laboratory Tests Test 08/06/18 21:01 08/07/18 02:10 08/07/18 07:55 08/07/18 08:04 Bedside Glucose 89 153 132 White Blood Count 14.3 H Red Blood Count 3.27 L Hemoglobin 8.5 L Hematocrit 26.8 L Mean Corpuscular 82.0 Volume Mean Corpuscular 26.0 L Hemoglobin Mean Corpuscular 31.7 L Hemoglobin Concent Red Cell 17.7 H Distribution Width Platelet Count 213 Mean Platelet Volume 9.0 Immature 0.800 H Granulocytes % Neutrophils % 80.9 H Lymphocytes % 8.5 L Monocytes % 8.8 Eosinophils % 0.6 Basophils % 0.4 Nucleated Red Blood 0.0 Cells % Immature 0.120 H Granulocytes # Neutrophils # 11.6 H Lymphocytes # 1.2 Monocytes # 1.3 H Eosinophils # 0.1 Basophils # 0.1 Nucleated Red Blood 0.0 Cells # Sodium Level 138 Potassium Level 4.9 Chloride Level 108 Carbon Dioxide Level 25 Anion Gap 5 Blood Urea Nitrogen 26 H Creatinine 2.06 H Est Glomerular 32 L Filtrat Rate mL/min Glucose Level 108 Calcium Level 8.7 Phosphorus Level 4.9 Magnesium Level 2.2 Test 08/07/18 17:16 Bedside Glucose 154 Medications Medication Current Medications IV Flush (NS 3 ml) 3 ml PER PROTOCOL IV ; Start 08/03/18 at 00:00 Ondansetron HCl (Zofran Inj) 4 mg Q6H PRN IV NAUSEA/VOMITING Last administered on 08/03/18at 03:48; Admin Dose 4 MG; Start 08/03/18 at 00:00 Nitroglycerin (Nitroglycerin (Sl Tab) 0.4 Mg) 1 tab Q5M PRN SL .CHEST PAIN; Start 08/03/18 at 00:00 Acetaminophen (Tylenol Tab) 650 mg Q6H PRN PO .PAIN 1-3 OR TEMP Last administered on 08/04/18at 03:49; Admin Dose 650 MG; Start 08/03/18 at 00:00 Morphine Sulfate (morphine) 2 mg Q4H PRN IV .PAIN 7-10 Last administered on 08/04/18 03:49; Admin Dose 2 MG; Start 08/03/18 at 00:00 Docusate Sodium (Colace) 100 mg Q12H PRN PO .CONSTIPATION; Start 08/03/18 at 00:00 Bisacodyl (Dulcolax) 5 mg DAILY PRN PO .CONSTIPATION; Start 08/03/18 at 00:00 Ascorbic Acid (Vitamin C) 500 mg DAILY PO Last administered on 08/06/18 08:11; Admin Dose 500 MG; Start 08/03/18 at 09:00 Chlorhexidine Gluconate (Peridex) 15 ml Q12H MM Last administered on 08/06/18at 00:07; Admin Dose 15 ML; Start 08/03/18 at 00:00 Digoxin (Digoxin) 0.25 mg DAILY PO Last administered on 08/06/18 08:11; Admin Dose 0.25 MG; Start 08/03/18 at 09:00 Ferrous Sulfate (Ferrous Sulfate (Ec)) 325 mg DAILY PO Last administered on 08/06/18 08:11; Admin Dose 325 MG; Start 08/03/18 at 09:00 Pantoprazole (Protonix Tab) 40 mg AC BREAKFAST PO Last administered on 08/06/18 05:00; Admin Dose 40 MG; Start 08/03/18 at 07:25 Sucralfate (Carafate) 1 gm AC MEALS AND BEDTIME PO Last administered on 08/07/18 17:33; Admin Dose 1 GM; Start 08/03/18 at 07:25 Albuterol (Proventil 0.083% (Neb)) 2.5 mg Q4H RESP THERAPY PRN NEB TRACHEOSTOMY Last administered on 08/05/18at 13:39; Admin Dose 2.5 MG; Start 08/02/18 at 23:45 Multivitamins/ Minerals (Theragran-M) 1 tab DAILY PO Last administered on 08/06/18 08:11; Admin Dose 1 TAB; Start 08/03/18 at 09:00 Miscellaneous Information 1 ea NOTE XX ; Start 08/02/18 at 23:45 Glucose (Glutose) 15 gm Q15M PRN PO DECREASED GLUCOSE; Start 08/02/18 at 23:45 Glucose (Glutose) 22.5 gm Q15M PRN PO DECREASED GLUCOSE; Start 08/02/18 at 23:45 Dextrose (D50w Syringe) 25 ml Q15M PRN IV DECREASED GLUCOSE; Start 08/02/18 at 23:45 Dextrose (D50w Syringe) 50 ml Q15M PRN IV DECREASED GLUCOSE; Start 08/02/18 at 23:45 Glucagon (Glucagen) 1 mg Q15M PRN IM DECREASED GLUCOSE; Start 08/02/18 at 23:45 Glucose (Glutose) 15 gm Q15M PRN BUCCAL DECREASED GLUCOSE; Start 08/02/18 at 23:45 Simethicone (Mylicon) 80 mg Q8H PRN PO DISTENSION/GAS/BLOATING Last administered on 08/04/18at 01:55; Admin Dose 80 MG; Start 08/03/18 at 04:30 Amlodipine Besylate (Norvasc) 5 mg DAILY PO Last administered on 08/06/18 08:11; Admin Dose 5 MG; Start 08/03/18 at 09:00 Fluconazole (Diflucan) 100 mg DAILY PO Last administered on 08/06/18 08:12; Admin Dose 100 MG; Start 08/03/18 at 09:00 Linezolid (Zyvox) 600 mg BID PO Last administered on 08/06/18 21:05; Admin Dose 600 MG; Start 08/03/18 at 09:00 Nystatin (Nystatin Cr) 1 applic BID TOP Last administered on 08/07/18 09:33; Admin Dose 1 APPLIC; Start 08/03/18 at 09:00 Amikacin Sulfate (Amikacin Iv Per Pharmacy) AMIKACIN PER PHARMACY NOTE XX ; Start 08/03/18 at 11:30 Insulin Aspart (Novolog Insulin Pen) NOVOLOG *MILD* ALGORI... AC MEALS AND BEDTIME SC Last administered on 08/07/18 17:23; Admin Dose 1 UNIT; Start 08/03/18 at 17:25 Linagliptin (Tradjenta) 5 mg DAILY PO Last administered on 08/06/18 08:12; Admin Dose 5 MG; Start 08/04/18 at 09:00 Diagnostic Test (Pha) (Accu-Chek) 1 ea 02 XX Last administered on 08/05/18 01:28; Admin Dose 1 EA; Start 08/04/18 at 02:00 Insulin Aspart (Novolog Insulin Pen) 10 unit WITH MEALS SC Last administered on 08/07/18 17:23; Admin Dose 10 UNIT; Start 08/03/18 at 17:55 Acetylcysteine (Mucomyst) 2 ml Q8H RESP THERAPY NEB Last administered on 08/05/18at 13:50; Admin Dose 2 ML; Start 08/04/18 at 08:00 Collagenase (Santyl) 1 applic DAILY TOP Last administered on 08/07/18 09:33; Admin Dose 1 APPLIC; Start 08/04/18 at 09:00 Enoxaparin Sodium (Lovenox) 110 mg Q24H SC Last administered on 08/06/18 08:21; Admin Dose 110 MG; Start 08/04/18 at 09:00; Status Hold Amikacin Sulfate 500 mg/Sodium Chloride 102 ml @ 101.6 mls/ hr Q48H IVPB Last administered on 08/05/18at 20:29; Admin Dose 101.6 MLS/HR; Start 08/05/18 at 20:00 Diphenhydramine HCl (Benadryl) 25 mg Q6H PRN IV rash or itching; Start 08/05/18 at 11:00 Metoprolol Tartrate (Lopressor) 25 mg BID PO Last administered on 08/06/18at 21:06; Admin Dose 25 MG; Start 08/06/18 at 13:30 ANTONIO ABURTO MD Aug 07, 2018 19:33
[2018-08-07] MEDS: AMIKACIN 500 MG in SOD CHLORIDE 0.9% 100 ML IVPB SCH (20:56)
[2018-08-07] MEDS: INSULIN GLARGINE [LANTus] (100 UNITS/ML) SYG SC SCH (21:14)
[2018-08-08] VITALS (23 sets, daily range): BP systolic 126–152; BP diastolic 60–76; PULSE 74–112; RESP 15–29
[2018-08-08] MEDS: ALBUTEROL 0.083% (NEB) 2.5 MG/3 ML AMP NEB PRN ×3 (00:33→15:37)
[2018-08-08] MEDS: ACETYLCYSTEINE 20% 4 ML VIAL NEB SCH ×4 (00:33→23:11)
[2018-08-08] MEDS: ACCU-CHEK XX SCH (01:53)
[2018-08-08] MEDS: PANTOPRAZOLE (EC) 40 MG TAB PO SCH (05:49)
[2018-08-08] MEDS: SUCRALFATE 1 GM TAB PO SCH ×4 (05:49→21:11)
--- NOTE | 2018-08-08 07:11 | PAC ---
Date/Time of Note Date/Time of Note DATE: 08/08/18 TIME: 07:10 Post-Anesthesia Notes Post-Anesthesia Note Last documented vital signs Vital Signs Date Temp Pulse Resp B/P (MAP) Pulse Ox O2 O2 Flow FiO2 Time Delivery Rate 08/08/18 74 17 98 30 05:42 08/08/18 98.0 70 18 136/73 98 04:20 (94) 08/04/18 Mechanical 15:44 Ventilator Activity: WNL Respiratory function: WNL Cardiovascular function: WNL Mental status: Baseline Pain reasonably controlled: Yes Hydration appropriate: Yes Nausea/Vomiting absent: No LYN HERNANDEZ MD Aug 08, 2018 07:11
[2018-08-08] MEDS: INSULIN ASPART [NOVOLOG] 3 ML PEN SC SCH ×8 (07:25→20:50)
[2018-08-08] MEDS: COLLAGENASE 5 GM (UD JAR) TOP SCH (08:22)
[2018-08-08] MEDS: ASCORBIC ACID 500 MG TAB PO SCH (08:23)
[2018-08-08] MEDS: FERROUS SULFATE (EC) 325 MG TAB PO SCH (08:24)
[2018-08-08] MEDS: METOPROLOL 25 MG TAB PO SCH ×2 (08:24→21:12)
[2018-08-08] MEDS: MULTIVITAMINS/MINERALS TAB PO SCH (08:24)
[2018-08-08] MEDS: DIGOXIN 0.25 MG TAB PO SCH (08:25)
[2018-08-08] MEDS: ZYVOX 600 MG TAB PO SCH ×2 (08:25→21:11)
[2018-08-08] MEDS: FLUCONAZOLE 100 MG TAB PO SCH (08:26)
[2018-08-08] MEDS: LINAGLIPTIN 5 MG TABLET PO SCH (08:26)
[2018-08-08] MEDS: AMLODIPINE 5 MG TAB PO SCH (08:27)
[2018-08-08] MEDS ORDERED: FUROSEMIDE 20 MG INJ IV SCH (09:00)
--- NOTE | 2018-08-08 09:19 | PN ---
DATE: 08/08/2018 SUBJECTIVE: The patient is stable, no events overnight. The patient yesterday had [address] in place with adequate drainage and output. No other events noted. OBJECTIVE: VITAL SIGNS: Blood pressure is 127/60, respirations 22, pulse 79, temperature 99.0. HEENT: Head is normocephalic. NECK: Supple. HEART: Regular rate. LUNGS: Show diminished breath sounds at the base. ABDOMEN: Soft, nontender to palpation without rebound or guarding. EXTREMITIES: Negative for clubbing, cyanosis. Positive edema. DERMATOLOGIC: No rashes. MUSCULOSKELETAL: No joint effusion. NEUROLOGIC: No change in exam. MEDICATIONS: Reviewed. LABORATORY DATA: From 08/07/2018 was reviewed. Laboratory data from 08/08/2018 is pending. ASSESSMENT AND PLAN: 1. Chronic kidney disease with baseline creatinine between 2.2 to 2.3 mg/dL. The patient's renal fu nction is currently at baseline. Continue current treatment plan, supportive care, renally dose all medicines. 2. Volume overload. We will start the patient on diuretic therapy and monitor closely. 3. Mineral bone disorder, monitor calcium and phosphorus levels. 4. Decompensated diastolic heart failure. Continue diuretic therapy. 5. Anemia. Continue to monitor hemoglobin and hematocrit levels. We will give Epogen as needed. 6. Ventilator-dependent respiratory failure. Vent settings and ABG has been reviewed. Continue to monitor. 7. Pulmonary opacification. The patient is status post pigtail placement. Continue to monitor. Fo llow up with CT surgery and monitor output. 8. Paroxysmal atrial fibrillation. Continue medical management. 9. Diabetes. Continue current insulin regimen per endocrinology. 10. Sepsis. The patient is completing antibiotic course. Dictated By: LORY KAY DO NR/NTS Conf#: [id number] DID#: [id number] CC: NATALIE ALAN MD; VARSHA PEARSON MD; JEIMY LOMAS;*EndCC*
--- NOTE | 2018-08-08 10:34 | CONS ---
Assessment/Plan Assessment/Plan Assessment/Plan (Daily) Ventilator setting; AC of 14, tidal volume 550, PEEP of 5, 30% FiO2. Assessment and recommendations; 1. Patient admitted for possible right VATS, however has received pigtail catheter, if there is no significant improvement patient will need to have a VATS procedure performed. 2. Extensive right-sided pneumonia. Status post 2 bronchoscopies in the recent past. 3. VDR F. 4. Chronic mild renal insufficiency. 5. Diabetes and hypertension. Continue current supportive care. Patient likely may need to proceed with VATS as there is no radiological improvement after placement of pigtail catheter on the right side. Consultation Date/Type/Reason Admit Date/Time Aug 02, 2018 at 22:00 Initial Consult Date 08/03/18 Type of Consult Pulmonary Requesting Provider: DEJUAN ORTIZ MD, [facility] Date/Time of Note DATE: 08/08/18 TIME: 10:32 24 HR Interval Summary Free Text/Dictation Patient's overall condition is stable. General exam; elderly male, on ventilator via tracheostomy, awake and alert. Currently in no distress. Exam/Review of Systems Exam Vitals Vital Signs Date Temp Pulse Resp B/P (MAP) Pulse Ox O2 O2 Flow FiO2 Time Delivery Rate 08/08/18 85 134/64 10:00 (87) 08/08/18 29 91 30 09:28 08/08/18 99.0 Mechanical 07:54 Ventilator Intake and Output 08/07/18 08/07/18 08/08/18 1515:00 23:00 07:00 IntakeIntake Total 300 ml 860 ml BalanceBalance 300 ml 860 ml Exam H EENT exam; supple neck, no JVD. No lymphadenopathy. Midline trachea. No thyromegaly. Patient is edentulous. Tracheostomy in place. Chest exam; diminished breath sounds right lung. Left lung is clear. S1-S2 audible, no murmurs. Regular rhythm. Right-sided pigtail catheter in place. Attached to Pleur-evac chamber. Abdomen exam; soft, nontender. No organomegaly. Bowel sounds audible. Extremity exam; no peripheral edema clubbing. GRAIN GRADER exam; no focal deficit. Results Result Diagram: 08/08/1818 08/08/1818 Results 24hrs Laboratory Tests Test 08/07/18 17:16 08/07/18 21:01 08/08/18 01:13 08/08/18 07:18 Bedside Glucose 154 160 128 White Blood Count 8.9 # Red Blood Count 3.08 L Hemoglobin 7.8 L Hematocrit 25.5 L Mean Corpuscular 82.8 Volume Mean Corpuscular 25.3 L Hemoglobin Mean Corpuscular 30.6 L Hemoglobin Concent Red Cell 18.2 H Distribution Width Platelet Count 169 # Mean Platelet Volume 9.1 Immature 1.100 H Granulocytes % Neutrophils % 72.5 Lymphocytes % 12.8 L Monocytes % 11.5 H Eosinophils % 1.6 Basophils % 0.5 Nucleated Red Blood 0.0 Cells % Immature 0.100 H Granulocytes # Neutrophils # 6.4 Lymphocytes # 1.1 Monocytes # 1.0 H Eosinophils # 0.1 Basophils # 0.0 Nucleated Red Blood 0.0 Cells # Sodium Level 139 Potassium Level 4.4 Chloride Level 108 Carbon Dioxide Level 25 Anion Gap 6 Blood Urea Nitrogen 28 H Creatinine 1.98 H Est Glomerular 34 L Filtrat Rate mL/min Glucose Level 83 Calcium Level 8.0 L Phosphorus Level 5.2 H Magnesium Level 2.2 Test 08/08/18 08:13 Bedside Glucose 98 Medications Medication Current Medications IV Flush (NS 3 ml) 3 ml PER PROTOCOL IV ; Start 08/03/18 at 00:00 Ondansetron HCl (Zofran Inj) 4 mg Q6H PRN IV NAUSEA/VOMITING Last administered on 08/03/18at 03:48; Admin Dose 4 MG; Start 08/03/18 at 00:00 Nitroglycerin (Nitroglycerin (Sl Tab) 0.4 Mg) 1 tab Q5M PRN SL .CHEST PAIN; Start 08/03/18 at 00:00 Acetaminophen (Tylenol Tab) 650 mg Q6H PRN PO .PAIN 1-3 OR TEMP Last adminis tered on 08/04/18at 03:49; Admin Dose 650 MG; Start 08/03/18 at 00:00 Morphine Sulfate (morphine) 2 mg Q4H PRN IV .PAIN 7-10 Last administered on 08/04/18 03:49; Admin Dose 2 MG; Start 08/03/18 at 00:00 Docusate Sodium (Colace) 100 mg Q12H PRN PO .CONSTIPATION; Start 08/03/18 at 00:00 Bisacodyl (Dulcolax) 5 mg DAILY PRN PO .CONSTIPATION; Start 08/03/18 at 00:00 Ascorbic Acid (Vitamin C) 500 mg DAILY PO Last administered on 08/08/18 08:23; Admin Dose 500 MG; Start 08/03/18 at 09:00 Chlorhexidine Gluconate (Peridex) 15 ml Q12H MM Last administered on 08/06/18 00:07; Admin Dose 15 ML; Start 08/03/18 at 00:00 Digoxin (Digoxin) 0.25 mg DAILY PO Last administered on 08/08/18 08:25; Admin Dose 0.25 MG; Start 08/03/18 at 09:00 Ferrous Sulfate (Ferrous Sulfate (Ec)) 325 mg DAILY PO Last administered on 08/08/18 08:24; Admin Dose 325 MG; Start 08/03/18 at 09:00 Pantoprazole (Protonix Tab) 40 mg AC BREAKFAST PO Last administered on 08/08/18 05:49; Admin Dose 40 MG; Start 08/03/18 at 07:25 Sucralfate (Carafate) 1 gm AC MEALS AND BEDTIME PO Last administered on 08/08/18 05:49; Admin Dose 1 GM; Start 08/03/18 at 07:25 Albuterol (Proventil 0.083% (Neb)) 2.5 mg Q4H RESP THERAPY PRN NEB TRACHEOSTOMY Last administered on 08/08/18 08:18; Admin Dose 2.5 MG; Start 08/02/18 at 23:45 Multivitamins/ Minerals (Theragran-M) 1 tab DAILY PO Last administered on 08/08/18 08:24; Admin Dose 1 TAB; Start 08/03/18 at 09:00 Miscellaneous Information 1 ea NOTE XX ; Start 08/02/18 at 23:45 Glucose (Glutose) 15 gm Q15M PRN PO DECREASED GLUCOSE; Start 08/02/18 at 23:45 Glucose (Glutose) 22.5 gm Q15M PRN PO DECREASED GLUCOSE; Start 08/02/18 at 23:45 Dextrose (D50w Syringe) 25 ml Q15M PRN IV DECREASED GLUCOSE; Start 08/02/18 at 23:45 Dextrose (D50w Syringe) 50 ml Q15M PRN IV DECREASED GLUCOSE; Start 08/02/18 at 23:45 Glucagon (Glucagen) 1 mg Q15M PRN IM DECREASED GLUCOSE; Start 08/02/18 at 23:45 Glucose (Glutose) 15 gm Q15M PRN BUCCAL DECREASED GLUCOSE; Start 08/02/18 at 23:45 Simethicone (Mylicon) 80 mg Q8H PRN PO DISTENSION/GAS/BLOATING Last administered on 08/04/18 01:55; Admin Dose 80 MG; Start 08/03/18 at 04:30 Amlodipine Besylate (Norvasc) 5 mg DAILY PO Last administered on 08/08/18 08:27; Admin Dose 5 MG; Start 08/03/18 at 09:00 Fluconazole (Diflucan) 100 mg DAILY PO Last administered on 08/08/18 08:26; Admin Dose 100 MG; Start 08/03/18 at 09:00 Linezolid (Zyvox) 600 mg BID PO Last administered on 08/08/18 08:25; Admin Dose 600 MG; Start 08/03/18 at 09:00 Nystatin (Nystatin Cr) 1 applic BID TOP Last administered on 08/07/18 21:07; Admin Dose 1 APPLIC; Start 08/03/18 at 09:00 Amikacin Sulfate (Amikacin Iv Per Pharmacy) AMIKACIN PER PHARMACY NOTE XX ; Start 08/03/18 at 11:30 Insulin Aspart (Novolog Insulin Pen) NOVOLOG *MILD* ALGORI... AC MEALS AND BEDTIME SC Last administered on 08/07/18 21:05; Admin Dose 1 UNIT; Start 08/03/18 at 17:25 Linagliptin (Tradjenta) 5 mg DAILY PO Last administered on 08/08/18 08:26; Admin Dose 5 MG; Start 08/04/18 at 09:00 Diagnostic Test (Pha) (Accu-Chek) 1 ea 02 XX Last administered on 08/05/18 01:28; Admin Dose 1 EA; Start 08/04/18 at 02:00 Insulin Aspart (Novolog Insulin Pen) 10 unit WITH MEALS SC Last administered on 08/07/18 17:23; Admin Dose 10 UNIT; Start 08/03/18 at 17:55 Acetylcysteine (Mucomyst) 2 ml Q8H RESP THERAPY NEB Last administered on 08/08/18 08:09; Admin Dose 2 ML; Start 08/04/18 at 08:00 Collagenase (Santyl) 1 applic DAILY TOP Last administered on 08/08/18 08:22; Admin Dose 1 APPLIC; Start 08/04/18 at 09:00 Enoxaparin Sodium (Lovenox) 110 mg Q24H SC Last administered on 08/06/18 08:21; Admin Dose 110 MG; Start 08/04/18 at 09:00; Status Hold Amikacin Sulfate 500 mg/Sodium Chloride 102 ml @ 101.6 mls/ hr Q48H IVPB Last administered on 08/07/18 20:56; Admin Dose 101.6 MLS/HR; Start 08/05/18 at 20:00 Diphenhydramine HCl (Benadryl) 25 mg Q6H PRN IV rash or itching; Start 08/05/18 at 11:00 Metoprolol Tartrate (Lopressor) 25 mg BID PO Last administered on 08/08/18 08:24; Admin Dose 25 MG; Start 08/06/18 at 13:30 Insulin Glargine (Lantus) 18 units DAILY@2000 SC Last administered on 08/07/18 21:14; Admin Dose 18 UNITS; Start 08/07/18 at 20:00 Furosemide (Lasix) 20 mg DAILY IV Last administered on 08/08/18 10:00; Admin Dose 20 MG; Start 08/08/18 at 09:00 WARREN HOLLIS Aug 08, 2018 10:34
--- NOTE | 2018-08-08 11:46 | PN ---
Date/Time of Note Date/Time of Note DATE: 08/08/18 TIME: 11:37 Assessment/Plan VTE Prophylaxis Risk score (from Ns)>0 risk: 9 SCD applied (from Ns): No SCD contraindicated: other Pharmacological prophylaxis: LMWH Lines/Catheters IV Catheter Type (from [facility]): Mid Line Urinary Cath still in place: No Assessment/Plan Hospital Course S: Patient seen by CTS team yesterday and renal team this morning. Presently off the floor getting pigtail catheter insertion. O: VS- see below PE: General: Obese man lying in bed, trach HEENT: Atraumatic, normocephalic. Neck: trach to vent Lungs: Mechanical, some coarse breath sounds throughout, chest tubes in place Heart: Normal S1-S2, Regular rhythm and rate. No murmur, S3, or S4 Abdomen: Soft , obese, nontender, nondistended , bowel sounds are present. Extremities: 1+ bilateral lower extremity edema Neurologic: awake, alert. Able to talk with deflated cuff. Skin: Raised, erythematous macular rash across abdomen Assessment/Plan: 68-year-old man with a past medical history of chronic respiratory failure status post trach, who was transferred from [facility] to [facility] for evaluation of loculated empyema ad possible VATS. The patient was a previous resident of [facility], was noted to have a loculated fluid effusion. The patient, after attempted bronchoscopy and post chest-tube without improvement of loculated fluid was subsequently transferred to [facility] for surgical evaluation. #1 acute on chronic hypoxemic and hypercarbic respiratory failure-Patient is on chronic ventilatory support. -Continue vent management as per pulmonary, antibiotics as ordered by ID team #2 Right pulmonary opacification plus infiltrates-Suspicion likely for large loculated thick pleural effusion, loculated empyema s/p failed bronchoscopy and chest tube prior to admission, but again did receive pigtail catheter x2 yesterday. -Continue broad-spectrum antibiotics of Zyvox, fluconazole, as well as amikacin. ID consulted -CT surgery has been consulted by pulmonary medicine -Per discussion with them despite pigtail catheter placement for this yesterday, patient likely will still need VATS for decortication procedure given chest x-ray findings, will discuss with the end user consultant teams about this. #3 Paroxysmal atrial fibrillation-Currently in sinus rhythm. - Continue to monitor. - Xarelto on hold at the current time, was switched to Lovenox earlier this admission but that was also held given procedure yesterday, will resume today #4 anemia of chronic disease: Patient received PRBC transfusion 4 days ago, hemoglobin today 7.8 -Monitor, transfuse for Hgb<7 or for symptomatic anemia #5 Chronic kidney disease stage III r/o FROILAN: Creatinine today 1.9 -nephro consulted, f/u trend and recommendations #6 diabetes mellitus: A1c was 8.6, sugars are stable -Monitor sugars #7 diastolic CHF - chronic with bilateral lower extremity edema-may also be related to anasarca from #8 -Monitor for now #8 Hepatic cirrhosis-Chest CT shows possible liver cirrhosis confirmed on USS. -Monitor, f/u hepatitis serologies. #9 DVT GI prophylaxis: lovenox, Protonix Result Diagram: 08/08/1871708/08/18 0718 Results 24hrs Laboratory Tests Test 08/07/18 17:16 08/07/18 21:01 08/08/18 01:13 08/08/18 07:18 Bedside Glucose 154 160 128 White Blood Count 8.9 # Red Blood Count 3.08 L Hemoglobin 7.8 L Hematocrit 25.5 L Mean Corpuscular 82.8 Volume Mean Corpuscular 25.3 L Hemoglobin Mean Corpuscular 30.6 L Hemoglobin Concent Red Cell 18.2 H Distribution Width Platelet Count 169 # Mean Platelet Volume 9.1 Immature 1.100 H Granulocytes % Neutrophils % 72.5 Lymphocytes % 12.8 L Monocytes % 11.5 H Eosinophils % 1.6 Basophils % 0.5 Nucleated Red Blood 0.0 Cells % Immature 0.100 H Granulocytes # Neutrophils # 6.4 Lymphocytes # 1.1 Monocytes # 1.0 H Eosinophils # 0.1 Basophils # 0.0 Nucleated Red Blood 0.0 Cells # Sodium Level 139 Potassium Level 4.4 Chloride Level 108 Carbon Dioxide Level 25 Anion Gap 6 Blood Urea Nitrogen 28 H Creatinine 1.98 H Est Glomerular 34 L Filtrat Rate mL/min Glucose Level 83 Calcium Level 8.0 L Phosphorus Level 5.2 H Magnesium Level 2.2 Test 08/08/18 08:13 Bedside Glucose 98 Exam/Review of Systems Exam Vitals Vital Signs Date Temp Pulse Resp B/P (MAP) Pulse Ox O2 O2 Flow FiO2 Time Delivery Rate 08/08/18 81 17 97 30 11:25 08/08/18 134/64 10:00 (87) 08/08/18 99.0 Mechanical 07:54 Ventilator Intake and Output 08/07/18 08/07/18 08/08/18 1515:00 23:00 07:00 IntakeIntake Total 300 ml 860 ml BalanceBalance 300 ml 860 ml Results Results 24hrs Laboratory Tests Test 08/07/18 17:16 08/07/18 21:01 08/08/18 01:13 08/08/18 07:18 Bedside Glucose 154 160 128 White Blood Count 8.9 # Red Blood Count 3.08 L Hemoglobin 7.8 L Hematocrit 25.5 L Mean Corpuscular 82.8 Volume Mean Corpuscular 25.3 L Hemoglobin Mean Corpuscular 30.6 L Hemoglobin Concent Red Cell 18.2 H Distribution Width Platelet Count 169 # Mean Platelet Volume 9.1 Immature 1.100 H Granulocytes % Neutrophils % 72.5 Lymphocytes % 12.8 L Monocytes % 11.5 H Eosinophils % 1.6 Basophils % 0.5 Nucleated Red Blood 0.0 Cells % Immature 0.100 H Granulocytes # Neutrophils # 6.4 Lymphocytes # 1.1 Monocytes # 1.0 H Eosinophils # 0.1 Basophils # 0.0 Nucleated Red Blood 0.0 Cells # Sodium Level 139 Potassium Level 4.4 Chloride Level 108 Carbon Dioxide Level 25 Anion Gap 6 Blood Urea Nitrogen 28 H Creatinine 1.98 H Est Glomerular 34 L Filtrat Rate mL/min Glucose Level 83 Calcium Level 8.0 L Phosphorus Level 5.2 H Magnesium Level 2.2 Test 08/08/18 08:13 Bedside Glucose 98 Medications Medication Current Medications IV Flush (NS 3 ml) 3 ml PER PROTOCOL IV ; Start 08/03/18 at 00:00 Ondansetron HCl (Zofran Inj) 4 mg Q6H PRN IV NAUSEA/VOMITING Last administered on 08/03/18at 03:48; Admin Dose 4 MG; Start 08/03/18 at 00:00 Nitroglycerin (Nitroglycerin (Sl Tab) 0.4 Mg) 1 tab Q5M PRN SL .CHEST PAIN; Start 08/03/18 at 00:00 Acetaminophen (Tylenol Tab) 650 mg Q6H PRN PO .PAIN 1-3 OR TEMP Last adminis tered on 08/04/18 03:49; Admin Dose 650 MG; Start 08/03/18 at 00:00 Morphine Sulfate (morphine) 2 mg Q4H PRN IV .PAIN 7-10 Last administered on 08/04/18 03:49; Admin Dose 2 MG; Start 08/03/18 at 00:00 Docusate Sodium (Colace) 100 mg Q12H PRN PO .CONSTIPATION; Start 08/03/18 at 00:00 Bisacodyl (Dulcolax) 5 mg DAILY PRN PO .CONSTIPATION; Start 08/03/18 at 00:00 Ascorbic Acid (Vitamin C) 500 mg DAILY PO Last administered on 08/08/18 08:23; Admin Dose 500 MG; Start 08/03/18 at 09:00 Chlorhexidine Gluconate (Peridex) 15 ml Q12H MM Last administered on 08/06/18 00:07; Admin Dose 15 ML; Start 08/03/18 at 00:00 Digoxin (Digoxin) 0.25 mg DAILY PO Last administered on 08/08/18 08:25; Admin Dose 0.25 MG; Start 08/03/18 at 09:00 Ferrous Sulfate (Ferrous Sulfate (Ec)) 325 mg DAILY PO Last administered on 08/08/18 08:24; Admin Dose 325 MG; Start 08/03/18 at 09:00 Pantoprazole (Protonix Tab) 40 mg AC BREAKFAST PO Last administered on 08/08/18 05:49; Admin Dose 40 MG; Start 08/03/18 at 07:25 Sucralfate (Carafate) 1 gm AC MEALS AND BEDTIME PO Last administered on 08/08/18 05:49; Admin Dose 1 GM; Start 08/03/18 at 07:25 Albuterol (Proventil 0.083% (Neb)) 2.5 mg Q4H RESP THERAPY PRN NEB TRACHEOSTOMY Last administered on 08/08/18 08:18; Admin Dose 2.5 MG; Start 08/02/18 at 23:45 Multivitamins/ Minerals (Theragran-M) 1 tab DAILY PO Last administered on 08/08/18 08:24; Admin Dose 1 TAB; Start 08/03/18 at 09:00 Miscellaneous Information 1 ea NOTE XX ; Start 08/02/18 at 23:45 Glucose (Glutose) 15 gm Q15M PRN PO DECREASED GLUCOSE; Start 08/02/18 at 23:45 Glucose (Glutose) 22.5 gm Q15M PRN PO DECREASED GLUCOSE; Start 08/02/18 at 23:45 Dextrose (D50w Syringe) 25 ml Q15M PRN IV DECREASED GLUCOSE; Start 08/02/18 at 23:45 Dextrose (D50w Syringe) 50 ml Q15M PRN IV DECREASED GLUCOSE; Start 08/02/18 at 23:45 Glucagon (Glucagen) 1 mg Q15M PRN IM DECREASED GLUCOSE; Start 08/02/18 at 23:45 Glucose (Glutose) 15 gm Q15M PRN BUCCAL DECREASED GLUCOSE; Start 08/02/18 at 23:45 Simethicone (Mylicon) 80 mg Q8H PRN PO DISTENSION/GAS/BLOATING Last administered on 08/04/18at 01:55; Admin Dose 80 MG; Start 08/03/18 at 04:30 Amlodipine Besylate (Norvasc) 5 mg DAILY PO Last administered on 08/08/18 08:27; Admin Dose 5 MG; Start 08/03/18 at 09:00 Fluconazole (Diflucan) 100 mg DAILY PO Last administered on 08/08/18 08:26; Admin Dose 100 MG; Start 08/03/18 at 09:00 Linezolid (Zyvox) 600 mg BID PO Last administered on 08/08/18 08:25; Admin Dose 600 MG; Start 08/03/18 at 09:00 Amikacin Sulfate (Amikacin Iv Per Pharmacy) AMIKACIN PER PHARMACY NOTE XX ; Start 08/03/18 at 11:30 Insulin Aspart (Novolog Insulin Pen) NOVOLOG *MILD* ALGORI... AC MEALS AND BEDTIME SC Last administered on 08/07/18 21:05; Admin Dose 1 UNIT; Start 08/03/18 at 17:25 Linagliptin (Tradjenta) 5 mg DAILY PO Last administered on 08/08/18 08:26; Admin Dose 5 MG; Start 08/04/18 at 09:00 Diagnostic Test (Pha) (Accu-Chek) 1 ea 02 XX Last administered on 08/05/18 01:28; Admin Dose 1 EA; Start 08/04/18 at 02:00 Insulin Aspart (Novolog Insulin Pen) 10 unit WITH MEALS SC Last administered on 08/07/18 17:23; Admin Dose 10 UNIT; Start 08/03/18 at 17:55 Acetylcysteine (Mucomyst) 2 ml Q8H RESP THERAPY NEB Last administered on 08/08/18 08:09; Admin Dose 2 ML; Start 08/04/18 at 08:00 Collagenase (Santyl) 1 applic DAILY TOP Last administered on 08/08/18 08:22; Admin Dose 1 APPLIC; Start 08/04/18 at 09:00 Enoxaparin Sodium (Lovenox) 110 mg Q24H SC Last administered on 08/06/18 08:21; Admin Dose 110 MG; Start 08/04/18 at 09:00; Status Hold Amikacin Sulfate 500 mg/Sodium Chloride 102 ml @ 101.6 mls/ hr Q48H IVPB Last administered on 08/07/18 20:56; Admin Dose 101.6 MLS/HR; Start 08/05/18 at 20:00 Diphenhydramine HCl (Benadryl) 25 mg Q6H PRN IV rash or itching; Start 08/05/18 at 11:00 Metoprolol Tartrate (Lopressor) 25 mg BID PO Last administered on 08/08/18 08:24; Admin Dose 25 MG; Start 08/06/18 at 13:30 Insulin Glargine (Lantus) 18 units DAILY@2000 SC Last administered on 08/07/18 21:14; Admin Dose 18 UNITS; Start 08/07/18 at 20:00 Furosemide (Lasix) 20 mg DAILY IV Last administered on 08/08/18at 10:00; Admin Dose 20 MG; Start 08/08/18 at 09:00 Nystatin (Nystatin Powder) 1 applic BID TOP ; Start 08/08/18 at 12:30 JEIMY LOMAS Aug 08, 2018 11:46
[2018-08-08] MEDS: CHLORHEXIDINE GLUCONATE 15 ML UD CUP MM SCH ×2 (11:47)
[2018-08-08] MEDS ORDERED: ENOXAPARIN 100 MG/ML SYG SC SCH (12:00)
[2018-08-08] MEDS: NYSTATIN 30 GM POWDER BTL TOP SCH ×2 (14:30→21:11)
[2018-08-08] MEDS: ENOXAPARIN 30 MG/0.3 ML SYG SC SCH (14:40)
[2018-08-08] MEDS: ENOXAPARIN 80 MG/0.8 ML SYG SC SCH (15:00)
--- NOTE | 2018-08-08 15:46 | CONS ---
Assessment/Plan Assessment/Plan Hospital Course (Demo Recall) Sleeping, looks comfortable, afebrile Microbiology: Sputum culture growing Serratia and pseudomonas aeruginosa, multidrug-resistant, urine culture grew Annmarie albicans Antimicrobials: Amikacin, Zyvox, fluconazole Indwelling: Trach PEG, R CT's x2 Physical examination: Well-developed obese fragile elderly man who is awake in no distress. Head atraumatic normocephalic Neck is supple, tracheostomy present. Chest rise symmetrical breath sounds diminished bases. Heart: S1-S2. Abdomen soft bowel sounds present, extremities without cyanosis, + edema Assessment: 1. Systemic inflammatory response syndrome with leukocytosis 2 to #2 2. HCAP with loculated pleural effusion possible empyema, s/p CT's 3. Acute on chronic kidney disease 4. Dysphagia 5. Fungal UTI 6. Paroxysmal atrial fibrillation 7. Diabetes Plan: Stable, wbc normalized, continue abx, f/u fluid cx Consultation Date/Type/Reason Admit Date/Time Aug 02, 2018 at 22:00 Initial Consult Date Type of Consult id Requesting Provider: DEJUAN ORTIZ MD, [facility] Date/Time of Note DATE: 08/08/18 TIME: 15:45 Exam/Review of Systems Exam Vitals Vital Signs Date Temp Pulse Resp B/P (MAP) Pulse Ox O2 O2 Flow FiO2 Time Delivery Rate 08/08/18 83 18 93 30 15:35 08/08/18 98.6 126/61 Mechanical 12:09 (82) Ventilator Intake and Output 08/07/18 08/07/18 08/08/18 1515:00 23:00 07:00 IntakeIntake Total 300 ml 860 ml BalanceBalance 300 ml 860 ml Results Result Diagram: 08/08/18 0718 08/08/18 0718 Results 24hrs Laboratory Tests Test 08/07/18 17:16 08/07/18 21:01 08/08/18 01:13 08/08/18 07:18 Bedside Glucose 154 160 128 White Blood Count 8.9 # Red Blood Count 3.08 L Hemoglobin 7.8 L Hematocrit 25.5 L Mean Corpuscular 82.8 Volume Mean Corpuscular 25.3 L Hemoglobin Mean Corpuscular 30.6 L Hemoglobin Concent Red Cell 18.2 H Distribution Width Platelet Count 169 # Mean Platelet Volume 9.1 Immature 1.100 H Granulocytes % Neutrophils % 72.5 Lymphocytes % 12.8 L Monocytes % 11.5 H Eosinophils % 1.6 Basophils % 0.5 Nucleated Red Blood 0.0 Cells % Immature 0.100 H Granulocytes # Neutrophils # 6.4 Lymphocytes # 1.1 Monocytes # 1.0 H Eosinophils # 0.1 Basophils # 0.0 Nucleated Red Blood 0.0 Cells # Sodium Level 139 Potassium Level 4.4 Chloride Level 108 Carbon Dioxide Level 25 Anion Gap 6 Blood Urea Nitrogen 28 H Creatinine 1.98 H Est Glomerular 34 L Filtrat Rate mL/min Glucose Level 83 Calcium Level 8.0 L Phosphorus Level 5.2 H Magnesium Level 2.2 Test 08/08/18 08:13 08/08/18 11:47 Bedside Glucose 98 191 Medications Medication Current Medications IV Flush (NS 3 ml) 3 ml PER PROTOCOL IV ; Start 08/03/18 at 00:00 Ondansetron HCl (Zofran Inj) 4 mg Q6H PRN IV NAUSEA/VOMITING Last administered on 08/03/18 03:48; Admin Dose 4 MG; Start 08/03/18 at 00:00 Nitroglycerin (Nitroglycerin (Sl Tab) 0.4 Mg) 1 tab Q5M PRN SL .CHEST PAIN; Start 08/03/18 at 00:00 Acetaminophen (Tylenol Tab) 650 mg Q6H PRN PO .PAIN 1-3 OR TEMP Last administered on 08/04/18 03:49; Admin Dose 650 MG; Start 08/03/18 at 00:00 Morphine Sulfate (morphine) 2 mg Q4H PRN IV .PAIN 7-10 Last administered on 08/04/18 03:49; Admin Dose 2 MG; Start 08/03/18 at 00:00 Docusate Sodium (Colace) 100 mg Q12H PRN PO .CONSTIPATION; Start 08/03/18 at 00:00 Bisacodyl (Dulcolax) 5 mg DAILY PRN PO .CONSTIPATION; Start 08/03/18 at 00:00 Ascorbic Acid (Vitamin C) 500 mg DAILY PO Last administered on 08/08/18 08:23; Admin Dose 500 MG; Start 08/03/18 at 09:00 Chlorhexidine Gluconate (Peridex) 15 ml Q12H MM Last administered on 08/08/18 11:47; Admin Dose 15 ML; Start 08/03/18 at 00:00 Digoxin (Digoxin) 0.25 mg DAILY PO Last administered on 08/08/18 08:25; Admin Dose 0.25 MG; Start 08/03/18 at 09:00 Ferrous Sulfate (Ferrous Sulfate (Ec)) 325 mg DAILY PO Last administered on 08/08/18 08:24; Admin Dose 325 MG; Start 08/03/18 at 09:00 Pantoprazole (Protonix Tab) 40 mg AC BREAKFAST PO Last administered on 08/08/18 05:49; Admin Dose 40 MG; Start 08/03/18 at 07:25 Sucralfate (Carafate) 1 gm AC MEALS AND BEDTIME PO Last administered on 08/08/18 11:47; Admin Dose 1 GM; Start 08/03/18 at 07:25 Albuterol (Proventil 0.083% (Neb)) 2.5 mg Q4H RESP THERAPY PRN NEB TRACHEOSTOMY Last administered on 08/08/18 15:37; Admin Dose 2.5 MG; Start 08/02/18 at 23:45 Multivitamins/ Minerals (Theragran-M) 1 tab DAILY PO Last administered on 08/08/18 08:24; Admin Dose 1 TAB; Start 08/03/18 at 09:00 Miscellaneous Information 1 ea NOTE XX ; Start 08/02/18 at 23:45 Glucose (Glutose) 15 gm Q15M PRN PO DECREASED GLUCOSE; Start 08/02/18 at 23:45 Glucose (Glutose) 22.5 gm Q15M PRN PO DECREASED GLUCOSE; Start 08/02/18 at 23:45 Dextrose (D50w Syringe) 25 ml Q15M PRN IV DECREASED GLUCOSE; Start 08/02/18 at 23:45 Dextrose (D50w Syringe) 50 ml Q15M PRN IV DECREASED GLUCOSE; Start 08/02/18 at 23:45 Glucagon (Glucagen) 1 mg Q15M PRN IM DECREASED GLUCOSE; Start 08/02/18 at 23:45 Glucose (Glutose) 15 gm Q15M PRN BUCCAL DECREASED GLUCOSE; Start 08/02/18 at 23:45 Simethicone (Mylicon) 80 mg Q8H PRN PO DISTENSION/GAS/BLOATING Last administ ered on 08/04/18 01:55; Admin Dose 80 MG; Start 08/03/18 at 04:30 Amlodipine Besylate (Norvasc) 5 mg DAILY PO Last administered on 08/08/18 08:27; Admin Dose 5 MG; Start 08/03/18 at 09:00 Fluconazole (Diflucan) 100 mg DAILY PO Last administered on 08/08/18 08:26; Admin Dose 100 MG; Start 08/03/18 at 09:00 Linezolid (Zyvox) 600 mg BID PO Last administered on 08/08/18 08:25; Admin Dose 600 MG; Start 08/03/18 at 09:00 Amikacin Sulfate (Amikacin Iv Per Pharmacy) AMIKACIN PER PHARMACY NOTE XX ; Start 08/03/18 at 11:30 Insulin Aspart (Novolog Insulin Pen) NOVOLOG *MILD* ALGORI... AC MEALS AND BEDTIME SC Last administered on 08/08/18 11:55; Admin Dose 2 UNIT; Start 08/03/18 at 17:25 Linagliptin (Tradjenta) 5 mg DAILY PO Last administered on 08/08/18 08:26; Admin Dose 5 MG; Start 08/04/18 at 09:00 Diagnostic Test (Pha) (Accu-Chek) 1 ea 02 XX Last administered on 08/05/18 01:28; Admin Dose 1 EA; Start 08/04/18 at 02:00 Insulin Aspart (Novolog Insulin Pen) 10 unit WITH MEALS SC Last administered on 08/08/18 11:54; Admin Dose 10 UNIT; Start 08/03/18 at 17:55 Acetylcysteine (Mucomyst) 2 ml Q8H RESP THERAPY NEB Last administered on 08/08/18 15:37; Admin Dose 2 ML; Start 08/04/18 at 08:00 Collagenase (Santyl) 1 applic DAILY TOP Last administered on 08/08/18 08:22; Admin Dose 1 APPLIC; Start 08/04/18 at 09:00 Amikacin Sulfate 500 mg/Sodium Chloride 102 ml @ 101.6 mls/ hr Q48H IVPB Last administered on 08/07/18 20:56; Admin Dose 101.6 MLS/HR; Start 08/05/18 at 20:00 Diphenhydramine HCl (Benadryl) 25 mg Q6H PRN IV rash or itching; Start 08/05/18 at 11:00 Metoprolol Tartrate (Lopressor) 25 mg BID PO Last administered on 08/08/18at 08:24; Admin Dose 25 MG; Start 08/06/18 at 13:30 Insulin Glargine (Lantus) 18 units DAILY@2000 SC Last administered on 08/07/18at 21:14; Admin Dose 18 UNITS; Start 08/07/18 at 20:00 Furosemide (Lasix) 20 mg DAILY IV Last administered on 08/08/18at 10:00; Admin Dose 20 MG; Start 08/08/18 at 09:00 Nystatin (Nystatin Powder) 1 applic BID TOP Last administered on 08/08/18 14:30; Admin Dose 1 APPLIC; Start 08/08/18 at 12:30 Enoxaparin Sodium (Lovenox) 30 mg Q24H SC Last administered on 08/08/18 14:40; Admin Dose 30 MG; Start 08/08/18 at 12:30 Enoxaparin Sodium (Lovenox) 80 mg Q24H SC Last administered on 08/08/18at 15:00; Admin Dose 80 MG; Start 08/08/18 at 12:30 JUANIS FINN NP Aug 08, 2018 15:46
--- NOTE | 2018-08-08 16:40 | CONS ---
Assessment/Plan Assessment/Plan Assessment/Plan (Daily) Respiratory failure Pleural effusion Paroxysmal atrial fibrillation Hypertension Recurrent anemia, currently off anticoagulation Preserved ejection fraction Moderate pulmonary hypertension -Patient awaiting CT surgery evaluation for pleural effusion -Telemetry with sinus rhythm with frequent PVCs and PACs, would restart beta- hitesh -Would order magnesium supplementation Consultation Date/Type/Reason Admit Date/Time Aug 02, 2018 at 22:00 Initial Consult Date 08/03/18 Type of Consult Cardiology Requesting Provider: DEJUAN ORTIZ MD, [facility] Date/Time of Note DATE: 08/08/18 TIME: 16:40 24 HR Interval Summary Free Text/Dictation the patienet is stble Exam/Review of Systems Vital Signs Vitals Vital Signs Date Temp Pulse Resp B/P (MAP) Pulse Ox O2 O2 Flow FiO2 Time Delivery Rate 08/08/18 80 16:34 08/08/18 98.3 20 128/76 96 Mechanical 16:00 (93) Ventilator 08/08/18 30 15:35 Intake and Output 08/07/18 08/07/18 08/08/18 1515:00 23:00 07:00 IntakeIntake Total 300 ml 860 ml BalanceBalance 300 ml 860 ml Labs Result Diagram: 08/08/18 0718 08/08/18 0718 Results 24hrs Laboratory Tests Test 08/07/18 17:16 08/07/18 21:01 08/08/18 01:13 08/08/18 07:18 Bedside Glucose 154 160 128 White Blood Count 8.9 # Red Blood Count 3.08 L Hemoglobin 7.8 L Hematocrit 25.5 L Mean Corpuscular 82.8 Volume Mean Corpuscular 25.3 L Hemoglobin Mean Corpuscular 30.6 L Hemoglobin Concent Red Cell 18.2 H Distribution Width Platelet Count 169 # Mean Platelet Volume 9.1 Immature 1.100 H Granulocytes % Neutrophils % 72.5 Lymphocytes % 12.8 L Monocytes % 11.5 H Eosinophils % 1.6 Basophils % 0.5 Nucleated Red Blood 0.0 Cells % Immature 0.100 H Granulocytes # Neutrophils # 6.4 Lymphocytes # 1.1 Monocytes # 1.0 H Eosinophils # 0.1 Basophils # 0.0 Nucleated Red Blood 0.0 Cells # Sodium Level 139 Potassium Level 4.4 Chloride Level 108 Carbon Dioxide Level 25 Anion Gap 6 Blood Urea Nitrogen 28 H Creatinine 1.98 H Est Glomerular 34 L Filtrat Rate mL/min Glucose Level 83 Calcium Level 8.0 L Phosphorus Level 5.2 H Magnesium Level 2.2 Test 08/08/18 08:13 08/08/18 11:47 Bedside Glucose 98 191 Medications Medications Current Medications IV Flush (NS 3 ml) 3 ml PER PROTOCOL IV ; Start 08/03/18 at 00:00 Ondansetron HCl (Zofran Inj) 4 mg Q6H PRN IV NAUSEA/VOMITING Last administered on 08/03/18 03:48; Admin Dose 4 MG; Start 08/03/18 at 00:00 Nitroglycerin (Nitroglycerin (Sl Tab) 0.4 Mg) 1 tab Q5M PRN SL .CHEST PAIN; Start 08/03/18 at 00:00 Acetaminophen (Tylenol Tab) 650 mg Q6H PRN PO .PAIN 1-3 OR TEMP Last administered on 08/04/18 03:49; Admin Dose 650 MG; Start 08/03/18 at 00:00 Morphine Sulfate (morphine) 2 mg Q4H PRN IV .PAIN 7-10 Last administered on 08/04/18 03:49; Admin Dose 2 MG; Start 08/03/18 at 00:00 Docusate Sodium (Colace) 100 mg Q12H PRN PO .CONSTIPATION; Start 08/03/18 at 00:00 Bisacodyl (Dulcolax) 5 mg DAILY PRN PO .CONSTIPATION; Start 08/03/18 at 00:00 Ascorbic Acid (Vitamin C) 500 mg DAILY PO Last administered on 08/08/18 08:23; Admin Dose 500 MG; Start 08/03/18 at 09:00 Chlorhexidine Gluconate (Peridex) 15 ml Q12H MM Last administered on 08/08/18 11:47; Admin Dose 15 ML; Start 08/03/18 at 00:00 Digoxin (Digoxin) 0.25 mg DAILY PO Last administered on 08/08/18 08:25; Admin Dose 0.25 MG; Start 08/03/18 at 09:00 Ferrous Sulfate (Ferrous Sulfate (Ec)) 325 mg DAILY PO Last administered on 08/08/18 08:24; Admin Dose 325 MG; Start 08/03/18 at 09:00 Pantoprazole (Protonix Tab) 40 mg AC BREAKFAST PO Last administered on 08/08/18 05:49; Admin Dose 40 MG; Start 08/03/18 at 07:25 Sucralfate (Carafate) 1 gm AC MEALS AND BEDTIME PO Last administered on 08/08/18 11:47; Admin Dose 1 GM; Start 08/03/18 at 07:25 Albuterol (Proventil 0.083% (Neb)) 2.5 mg Q4H RESP THERAPY PRN NEB TRACHEOSTOMY Last administered on 08/08/18at 15:37; Admin Dose 2.5 MG; Start 08/02/18 at 23:45 Multivitamins/ Minerals (Theragran-M) 1 tab DAILY PO Last administered on 08/08/18 08:24; Admin Dose 1 TAB; Start 08/03/18 at 09:00 Miscellaneous Information 1 ea NOTE XX ; Start 08/02/18 at 23:45 Glucose (Glutose) 15 gm Q15M PRN PO DECREASED GLUCOSE; Start 08/02/18 at 23:45 Glucose (Glutose) 22.5 gm Q15M PRN PO DECREASED GLUCOSE; Start 08/02/18 at 23:45 Dextrose (D50w Syringe) 25 ml Q15M PRN IV DECREASED GLUCOSE; Start 08/02/18 at 23:45 Dextrose (D50w Syringe) 50 ml Q15M PRN IV DECREASED GLUCOSE; Start 08/02/18 at 23:45 Glucagon (Glucagen) 1 mg Q15M PRN IM DECREASED GLUCOSE; Start 08/02/18 at 23:45 Glucose (Glutose) 15 gm Q15M PRN BUCCAL DECREASED GLUCOSE; Start 08/02/18 at 23:45 Simethicone (Mylicon) 80 mg Q8H PRN PO DISTENSION/GAS/BLOATING Last administered on 08/04/18at 01:55; Admin Dose 80 MG; Start 08/03/18 at 04:30 Amlodipine Besylate (Norvasc) 5 mg DAILY PO Last administered on 08/08/18 08:27; Admin Dose 5 MG; Start 08/03/18 at 09:00 Fluconazole (Diflucan) 100 mg DAILY PO Last administered on 08/08/18 08:26; Admin Dose 100 MG; Start 08/03/18 at 09:00 Linezolid (Zyvox) 600 mg BID PO Last administered on 08/08/18 08:25; Admin Dose 600 MG; Start 08/03/18 at 09:00 Amikacin Sulfate (Amikacin Iv Per Pharmacy) AMIKACIN PER PHARMACY NOTE XX ; Start 08/03/18 at 11:30 Insulin Aspart (Novolog Insulin Pen) NOVOLOG *MILD* ALGORI... AC MEALS AND BEDTIME SC Last administered on 08/08/18 11:55; Admin Dose 2 UNIT; Start 08/03/18 at 17:25 Linagliptin (Tradjenta) 5 mg DAILY PO Last administered on 08/08/18 08:26; Admin Dose 5 MG; Start 08/04/18 at 09:00 Diagnostic Test (Pha) (Accu-Chek) 1 ea 02 XX Last administered on 08/05/18 01:28; Admin Dose 1 EA; Start 08/04/18 at 02:00 Insulin Aspart (Novolog Insulin Pen) 10 unit WITH MEALS SC Last administered on 08/08/18 11:54; Admin Dose 10 UNIT; Start 08/03/18 at 17:55 Acetylcysteine (Mucomyst) 2 ml Q8H RESP THERAPY NEB Last administered on 08/08/18 15:37; Admin Dose 2 ML; Start 08/04/18 at 08:00 Collagenase (Santyl) 1 applic DAILY TOP Last administered on 08/08/18 08:22; Admin Dose 1 APPLIC; Start 08/04/18 at 09:00 Amikacin Sulfate 500 mg/Sodium Chloride 102 ml @ 101.6 mls/ hr Q48H IVPB Last administered on 08/07/18 20:56; Admin Dose 101.6 MLS/HR; Start 08/05/18 at 20:00 Diphenhydramine HCl (Benadryl) 25 mg Q6H PRN IV rash or itching; Start 08/05/18 at 11:00 Metoprolol Tartrate (Lopressor) 25 mg BID PO Last administered on 08/08/18 08:24; Admin Dose 25 MG; Start 08/06/18 at 13:30 Insulin Glargine (Lantus) 18 units DAILY@2000 SC Last administered on 08/07/18 21:14; Admin Dose 18 UNITS; Start 08/07/18 at 20:00 Furosemide (Lasix) 20 mg DAILY IV Last administered on 08/08/18 10:00; Admin Dose 20 MG; Start 08/08/18 at 09:00 Nystatin (Nystatin Powder) 1 applic BID TOP Last administered on 08/08/18 14:30; Admin Dose 1 APPLIC; Start 08/08/18 at 12:30 Enoxaparin Sodium (Lovenox) 30 mg Q24H SC Last administered on 08/08/18 14:40; Admin Dose 30 MG; Start 08/08/18 at 12:30 Enoxaparin Sodium (Lovenox) 80 mg Q24H SC Last administered on 08/08/18 15:00; Admin Dose 80 MG; Start 08/08/18 at 12:30 MARICRUZ COSTA MD Aug 08, 2018 16:40
--- NOTE | 2018-08-08 18:50 | CONS ---
Assessment/Plan Assessment/Plan Problems: (1) Type 2 diabetes mellitus with diabetic chronic kidney disease Status: Chronic Comment: Fair glycemic control. Mildly hyperglycemic today pre-lunch due to withholding of insulin this am before breakfast. Encourage pt. to take insulin as directed. 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 Consultation Date/Type/Reason Admit Date/Time Aug 02, 2018 at 22:00 Initial Consult Date 08/03/18 Type of Consult Endocrinology Reason for Consultation T2DM management Requesting Provider: DEJUAN ORTIZ MD, [facility] Date/Time of Note DATE: 08/08/18 TIME: 18:48 24 HR Interval Summary Constitutional: no complaints Exam/Review of Systems Exam Vitals VS - Last 72 Hours, by Label Date Temp Pulse Resp B/P (MAP) Pulse Ox O2 O2 Flow FiO2 Time Delivery Rate 08/08/18 82 18 96 30 17:22 08/08/18 80 16:34 08/08/18 98.3 76 20 128/76 96 Mechanical 16:00 (93) Ventilator 08/08/18 83 18 93 30 15:35 08/08/18 74 13:10 08/08/18 82 26 97 30 13:06 08/08/18 98.6 78 18 126/61 97 Mechanical 12:09 (82) Ventilator 08/08/18 81 17 97 30 11:25 08/08/18 85 134/64 10:00 (87) 08/08/18 100 29 91 30 09:28 08/08/18 83 08:43 08/08/18 76 20 93 30 08:07 08/08/18 99.0 79 22 127/60 94 Mechanical 07:54 (82) Ventilator 08/08/18 74 17 98 30 05:42 08/08/18 98.0 78 16 136/73 97 04:20 (94) 08/08/18 86 04:00 08/08/18 80 15 98 30 03:36 08/08/18 76 23 96 30 01:44 08/08/18 77 00:00 08/08/18 98.5 85 16 152/66 96 00:00 (94) 08/07/18 83 24 98 30 23:28 08/07/18 80 20 98 30 21:40 08/07/18 30 20:45 08/07/18 104 20:00 08/07/18 98.6 81 16 141/63 100 20:00 (89) 08/07/18 100 23 100 30 19:32 08/07/18 96 22 98 30 17:33 08/07/18 98.8 90 16 154/77 100 16:05 (102) 08/07/18 77 16:01 08/07/18 98.6 86 20 133/67 100 15:35 (89) 08/07/18 96 22 98 30 15:00 08/07/18 98.2 84 14 110/74 15:00 (86) 08/07/18 98.9 14 113/91 14:30 (98) 08/07/18 80 14 129/68 100 13:53 (88) 08/07/18 80 14 121/67 100 13:48 (85) 08/07/18 80 14 130/65 100 13:43 (86) 08/07/18 92 15 145/70 100 13:38 (95) 08/07/18 84 14 128/68 100 13:33 (88) 08/07/18 92 16 126/65 100 13:29 (85) 08/07/18 98.6 16 138/74 100 13:23 (95) 08/07/18 89 12:01 08/07/18 95 23 98 30 09:20 08/07/18 96 08:01 08/07/18 30 08:00 08/07/18 95 24 98 30 07:50 08/07/18 99.2 98 22 153/74 96 07:35 (100) 08/07/18 95 25 98 30 05:13 08/07/18 98.8 89 18 153/67 96 04:27 (95) 08/07/18 87 04:00 08/07/18 98 24 96 30 03:48 08/07/18 78 19 96 30 01:23 08/07/18 79 00:00 08/06/18 98.9 78 18 128/57 96 23:41 (80) 08/06/18 81 22 97 30 23:15 4/22/19 88 21:25 08/06/18 96 28 97 30 21:19 08/06/18 30 20:25 08/06/18 94 21 98 30 19:36 08/06/18 99.0 84 19 159/77 97 19:27 (104) 08/06/18 95 24 98 30 17:43 08/06/18 84 16:01 08/06/18 98.5 99 19 163/72 92 15:41 (102) 08/06/18 95 22 98 30 15:20 08/06/18 96 22 98 30 13:25 08/06/18 98.7 87 18 146/76 97 12:05 (99) 08/06/18 102 12:01 08/06/18 96 24 98 30 11:24 08/06/18 96 23 98 30 09:23 08/06/18 90 08:01 08/06/18 99.0 91 15 174/78 95 07:42 (110) 08/06/18 95 23 98 30 07:20 08/06/18 90 22 95 30 04:50 08/06/18 94 04:00 08/06/18 98.0 95 16 125/66 98 04:00 (85) 08/06/18 100 23 98 30 03:08 08/06/18 89 21 95 30 01:06 08/06/18 83 00:00 08/06/18 99.5 92 16 158/61 99 00:00 (93) 08/05/18 88 24 98 30 22:55 08/05/18 90 21:48 08/05/18 90 24 96 30 21:00 08/05/18 30 20:14 08/05/18 88 20:00 08/05/18 55 20:00 08/05/18 99.2 90 18 132/62 97 20:00 (85) 08/05/18 30 18:57 08/05/18 88 18 98 40 18:56 Vital Signs Date Temp Pulse Resp B/P (MAP) Pulse Ox O2 O2 Flow FiO2 Time Delivery Rate 08/08/18 82 18 96 30 17:22 08/08/18 98.3 128/76 Mechanical 16:00 (93) Ventilator Intake and Output 08/07/18 08/07/18 08/08/18 1515:00 23:00 07:00 IntakeIntake Total 300 ml 860 ml BalanceBalance 300 ml 860 ml Constitutional: alert, oriented, obese Psych: no complaints, nl mood/affect Neck: other ((+) trach on vent) Respiratory: clear to auscultation, normal air movement Cardiovascular: regular rate and rhythm, edema (2+ BLE); No murmurs/extra sounds, No rub Gastrointestinal: soft, nl liver, spleen, non-tender, bowel sounds; No mass, No rebound or guarding Musculoskeletal: nl extremities to inspection Extremities: edema (2+ BLE); No cyanosis, No clubbing Neurological: 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 II-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 intact, nl mental status, nl speech, nl strength Additional Comments Bedside Glucose - 72 Hours Test 08/05/18 20:27 08/06/18 01:49 08/06/18 07:53 08/06/18 11:57 Bedside 100 90 99 104 Glucose mg/dL (70-220) mg/dL (70-220) mg/dL (70-220) mg/dL (70-220) Test 08/06/18 17:50 08/06/18 21:01 08/07/18 02:10 08/07/18 08:04 Bedside 107 89 153 132 Glucose mg/dL (70-220) mg/dL (70-220) mg/dL (70-220) mg/dL (70-220) Test 08/07/18 17:16 08/07/18 21:01 08/08/18 01:13 08/08/18 08:13 Bedside 154 160 128 98 Glucose mg/dL (70-220) mg/dL (70-220) mg/dL (70-220) mg/dL (70-220) Test 08/08/18 11:47 08/08/18 17:24 Bedside 191 139 Glucose mg/dL (70-220) mg/dL (70-220) Results Result Diagram: 08/08/1871708/08/18717 Results 24hrs Laboratory Tests Test 08/07/18 21:01 08/08/18 01:13 08/08/18 07:18 08/08/18 08:13 Bedside Glucose 160 128 98 White Blood Count 8.9 # Red Blood Count 3.08 L Hemoglobin 7.8 L Hematocrit 25.5 L Mean Corpuscular 82.8 Volume Mean Corpuscular 25.3 L Hemoglobin Mean Corpuscular 30.6 L Hemoglobin Concent Red Cell 18.2 H Distribution Width Platelet Count 169 # Mean Platelet Volume 9.1 Immature 1.100 H Granulocytes % Neutrophils % 72.5 Lymphocytes % 12.8 L Monocytes % 11.5 H Eosinophils % 1.6 Basophils % 0.5 Nucleated Red Blood 0.0 Cells % Immature 0.100 H Granulocytes # Neutrophils # 6.4 Lymphocytes # 1.1 Monocytes # 1.0 H Eosinophils # 0.1 Basophils # 0.0 Nucleated Red Blood 0.0 Cells # Sodium Level 139 Potassium Level 4.4 Chloride Level 108 Carbon Dioxide Level 25 Anion Gap 6 Blood Urea Nitrogen 28 H Creatinine 1.98 H Est Glomerular 34 L Filtrat Rate mL/min Glucose Level 83 Calcium Level 8.0 L Phosphorus Level 5.2 H Magnesium Level 2.2 Test 08/08/18 11:47 08/08/18 17:24 Bedside Glucose 191 139 Medications Medication Current Medications IV Flush (NS 3 ml) 3 ml PER PROTOCOL IV ; Start 08/03/18 at 00:00 Ondansetron HCl (Zofran Inj) 4 mg Q6H PRN IV NAUSEA/VOMITING Last administered on 08/03/18at 03:48; Admin Dose 4 MG; Start 08/03/18 at 00:00 Nitroglycerin (Nitroglycerin (Sl Tab) 0.4 Mg) 1 tab Q5M PRN SL .CHEST PAIN; Start 08/03/18 at 00:00 Acetaminophen (Tylenol Tab) 650 mg Q6H PRN PO .PAIN 1-3 OR TEMP Last administered on 08/04/18at 03:49; Admin Dose 650 MG; Start 08/03/18 at 00:00 Morphine Sulfate (morphine) 2 mg Q4H PRN IV .PAIN 7-10 Last administered on 08/04/18at 03:49; Admin Dose 2 MG; Start 08/03/18 at 00:00 Docusate Sodium (Colace) 100 mg Q12H PRN PO .CONSTIPATION; Start 08/03/18 at 00:00 Bisacodyl (Dulcolax) 5 mg DAILY PRN PO .CONSTIPATION; Start 08/03/18 at 00:00 Ascorbic Acid (Vitamin C) 500 mg DAILY PO Last administered on 08/08/18at 08:23; Admin Dose 500 MG; Start 08/03/18 at 09:00 Chlorhexidine Gluconate (Peridex) 15 ml Q12H MM Last administered on 08/08/18 11:47; Admin Dose 15 ML; Start 08/03/18 at 00:00 Digoxin (Digoxin) 0.25 mg DAILY PO Last administered on 08/08/18 08:25; Admin Dose 0.25 MG; Start 08/03/18 at 09:00 Ferrous Sulfate (Ferrous Sulfate (Ec)) 325 mg DAILY PO Last administered on 08/08/18 08:24; Admin Dose 325 MG; Start 08/03/18 at 09:00 Pantoprazole (Protonix Tab) 40 mg AC BREAKFAST PO Last administered on 08/08/18 05:49; Admin Dose 40 MG; Start 08/03/18 at 07:25 Sucralfate (Carafate) 1 gm AC MEALS AND BEDTIME PO Last administered on 08/08/18 17:20; Admin Dose 1 GM; Start 08/03/18 at 07:25 Albuterol (Proventil 0.083% (Neb)) 2.5 mg Q4H RESP THERAPY PRN NEB TRACHEOSTOMY Last administered on 08/08/18 15:37; Admin Dose 2.5 MG; Start 08/02/18 at 23:45 Multivitamins/ Minerals (Theragran-M) 1 tab DAILY PO Last administered on 08/08/18 08:24; Admin Dose 1 TAB; Start 08/03/18 at 09:00 Miscellaneous Information 1 ea NOTE XX ; Start 08/02/18 at 23:45 Glucose (Glutose) 15 gm Q15M PRN PO DECREASED GLUCOSE; Start 08/02/18 at 23:45 Glucose (Glutose) 22.5 gm Q15M PRN PO DECREASED GLUCOSE; Start 08/02/18 at 23:45 Dextrose (D50w Syringe) 25 ml Q15M PRN IV DECREASED GLUCOSE; Start 08/02/18 at 23:45 Dextrose (D50w Syringe) 50 ml Q15M PRN IV DECREASED GLUCOSE; Start 08/02/18 at 23:45 Glucagon (Glucagen) 1 mg Q15M PRN IM DECREASED GLUCOSE; Start 08/02/18 at 23:45 Glucose (Glutose) 15 gm Q15M PRN BUCCAL DECREASED GLUCOSE; Start 08/02/18 at 23:45 Simethicone (Mylicon) 80 mg Q8H PRN PO DISTENSION/GAS/BLOATING Last administered on 08/04/18 01:55; Admin Dose 80 MG; Start 08/03/18 at 04:30 Amlodipine Besylate (Norvasc) 5 mg DAILY PO Last administered on 08/08/18 08:27; Admin Dose 5 MG; Start 08/03/18 at 09:00 Fluconazole (Diflucan) 100 mg DAILY PO Last administered on 08/08/18 08:26; Admin Dose 100 MG; Start 08/03/18 at 09:00 Linezolid (Zyvox) 600 mg BID PO Last administered on 08/08/18 08:25; Admin Dose 600 MG; Start 08/03/18 at 09:00 Amikacin Sulfate (Amikacin Iv Per Pharmacy) AMIKACIN PER PHARMACY NOTE XX ; Start 08/03/18 at 11:30 Insulin Aspart (Novolog Insulin Pen) NOVOLOG *MILD* ALGORI... AC MEALS AND BEDTIME SC Last administered on 08/08/18 11:55; Admin Dose 2 UNIT; Start 08/03/18 at 17:25 Linagliptin (Tradjenta) 5 mg DAILY PO Last administered on 08/08/18 08:26; Admin Dose 5 MG; Start 08/04/18 at 09:00 Diagnostic Test (Pha) (Accu-Chek) 1 ea 02 XX Last administered on 08/05/18 01:28; Admin Dose 1 EA; Start 08/04/18 at 02:00 Insulin Aspart (Novolog Insulin Pen) 10 unit WITH MEALS SC Last administered on 08/08/18 17:35; Admin Dose 10 UNIT; Start 08/03/18 at 17:55 Acetylcysteine (Mucomyst) 2 ml Q8H RESP THERAPY NEB Last administered on 08/08/18 15:37; Admin Dose 2 ML; Start 08/04/18 at 08:00 Collagenase (Santyl) 1 applic DAILY TOP Last administered on 08/08/18 08:22; Admin Dose 1 APPLIC; Start 08/04/18 at 09:00 Amikacin Sulfate 500 mg/Sodium Chloride 102 ml @ 101.6 mls/ hr Q48H IVPB Last administered on 08/07/18 20:56; Admin Dose 101.6 MLS/HR; Start 08/05/18 at 20:00 Diphenhydramine HCl (Benadryl) 25 mg Q6H PRN IV rash or itching; Start 08/05/18 at 11:00 Metoprolol Tartrate (Lopressor) 25 mg BID PO Last administered on 08/08/18at 08:24; Admin Dose 25 MG; Start 08/06/18 at 13:30 Insulin Glargine (Lantus) 18 units DAILY@2000 SC Last administered on 08/07/18at 21:14; Admin Dose 18 UNITS; Start 08/07/18 at 20:00 Furosemide (Lasix) 20 mg DAILY IV Last administered on 08/08/18 10:00; Admin Dose 20 MG; Start 08/08/18 at 09:00 Nystatin (Nystatin Powder) 1 applic BID TOP Last administered on 08/08/18 14:30; Admin Dose 1 APPLIC; Start 08/08/18 at 12:30 Enoxaparin Sodium (Lovenox) 30 mg Q24H SC Last administered on 08/08/18at 14:40; Admin Dose 30 MG; Start 08/08/18 at 12:30 Enoxaparin Sodium (Lovenox) 80 mg Q24H SC Last administered on 08/08/18 15:00; Admin Dose 80 MG; Start 08/08/18 at 12:30 ANTONIO ABURTO MD Aug 08, 2018 18:50
[2018-08-08] MEDS: INSULIN GLARGINE [LANTus] (100 UNITS/ML) SYG SC SCH (20:53)
[2018-08-08] MEDS: morphine 2 MG INJ IV PRN (21:11)
[2018-08-09] VITALS (18 sets, daily range): BP systolic 141–169; BP diastolic 61–78; PULSE 60–81; RESP 16–22
[2018-08-09] MEDS: CHLORHEXIDINE GLUCONATE 15 ML UD CUP MM SCH ×3 (00:09→23:00)
[2018-08-09] MEDS: ACCU-CHEK XX SCH (01:11)
--- NOTE | 2018-08-09 06:43 | PN ---
Date/Time of Note Date/Time of Note DATE: 08/09/18 TIME: 06:42 Assessment/Plan Lines/Catheters IV Catheter Type (from Nrsg): Mid Line Vergara in Place (from Nrsg): No Assessment/Plan Assessment/Plan pigtails placed and pure pus draining. will plan on thoracotomy and decortication Monday Exam/Review of Systems Vital Signs Vitals Vital Signs Date Temp Pulse Resp B/P (MAP) Pulse Ox O2 O2 Flow FiO2 Time Delivery Rate 08/09/18 78 20 98 30 04:45 08/09/18 98.3 169/78 04:00 (108) 08/08/18 Mechanical 20:00 Ventilator Intake and Output 08/08/18 08/08/18 08/09/18 1515:00 23:00 07:00 IntakeIntake Total 600 ml 300 ml OutputOutput Total 240 ml 500 ml BalanceBalance 360 ml -200 ml Results Result Diagram: 08/08/18 0718 08/08/18 0718 NATALIE ALAN MD Aug 09, 2018 06:43
[2018-08-09] MEDS: INSULIN ASPART [NOVOLOG] 3 ML PEN SC SCH ×7 (07:25→20:22)
[2018-08-09] MEDS: PANTOPRAZOLE (EC) 40 MG TAB PO SCH (07:54)
[2018-08-09] MEDS: SUCRALFATE 1 GM TAB PO SCH ×4 (07:54→20:15)
[2018-08-09] MEDS: ACETYLCYSTEINE 20% 4 ML VIAL NEB SCH ×2 (08:07→16:00)
--- NOTE | 2018-08-09 08:51 | PN ---
DATE: 08/09/2018 SUBJECTIVE: The patient is stable, no events overnight. No fevers, chills, nausea, vomiting. OBJECTIVE: VITAL SIGNS: Blood pressure is 149/66, respiration 22, pulse 76, temperature 98.0. HEENT: Head is normocephalic. NECK: Supple. HEART: Regular rate. LUNGS: Show diminished breath sounds at the base. ABDOMEN: Soft, nontender to palpation without rebound or guarding. EXTREMITIES: Negative for clubbing, cyanosis. Positive edema. DERMATOLOGIC: No rashes. MUSCULOSKELETAL: No joint effusion. NEUROLOGIC: No change in exam. MEDICATIONS: The patient's medications have been reviewed. LABORATORY DATA: Has been reviewed. IMAGING STUDIES: Have been reviewed. Chest x-ray from 08/08/2018 showed near complete opacification of right lung base, pulmonary vascular congestion. ASSESSMENT AND PLAN: 1. Chronic kidney disease with a baseline creatinine between 2.2 to 2.3 mg/dL. Renal function is at baseline. Continue to monitor. 2. Acute decompensated diastolic heart failure. The patient remains grossly volume overloaded. Angel l intensify diuretic therapy. Will monitor closely. 3. Mineral bone disorder, monitor calcium and phosphorus levels. 4. Anemia. Monitor hemoglobin and hematocrit levels. Will give Epogen as needed. 5. Ventilator-dependent respiratory failure. Vent settings and ABG was reviewed. Continue to monit or. 6. Right lung opacification. The patient is status post pigtail. Will continue to monitor. Follow up with CT surgery. 7. Paroxysmal atrial fibrillation. Continue medical management. 8. Diabetes. Continue current insulin regimen. 9. Sepsis. Patient is completing antibiotic course. 10. Cirrhosis. Continue to monitor. Continue current treatment plan. Dictated By: LORY KAY DO NR/NTS Conf#: [id number] DID#: [id number] CC: JEIMY LOMAS; VARSHA PEARSON MD; NATALIE ALAN MD;*End*
[2018-08-09] MEDS: FLUCONAZOLE 100 MG TAB PO SCH (09:57)
[2018-08-09] MEDS: FERROUS SULFATE (EC) 325 MG TAB PO SCH (09:57)
[2018-08-09] MEDS: FUROSEMIDE 40 MG INJ IV SCH ×2 (09:57→20:14)
[2018-08-09] MEDS: ZYVOX 600 MG TAB PO SCH ×2 (09:57→20:14)
[2018-08-09] MEDS: AMLODIPINE 5 MG TAB PO SCH (09:57)
[2018-08-09] MEDS: LINAGLIPTIN 5 MG TABLET PO SCH (09:57)
[2018-08-09] MEDS: MULTIVITAMINS/MINERALS TAB PO SCH (09:57)
[2018-08-09] MEDS: morphine 2 MG INJ IV PRN (09:58)
[2018-08-09] MEDS: ASCORBIC ACID 500 MG TAB PO SCH (09:58)
[2018-08-09] MEDS: METOPROLOL 25 MG TAB PO SCH ×2 (09:58→20:15)
[2018-08-09] MEDS: DIGOXIN 0.25 MG TAB PO SCH (10:03)
[2018-08-09] MEDS: COLLAGENASE 5 GM (UD JAR) TOP SCH (10:04)
[2018-08-09] MEDS: NYSTATIN 30 GM POWDER BTL TOP SCH ×2 (10:04→20:16)
--- NOTE | 2018-08-09 10:52 | CONS ---
Assessment/Plan Assessment/Plan Assessment/Plan (Daily) Ventilator setting; assist control of 14, tidal volume 550, PEEP of 5, 30% FiO2. Assessment and recommendations; 1. Patient with history of VDRF admitted for possible right-sided VATS. With history of severe pneumonia involving right lung with complete opacification, status post 2 bronchoscopies. 2. Other comorbidities include history of diabetes, hypertension and stable chronic renal insufficiency. Continue current supportive care. Patient like to undergo VATS procedure on the right side. Consultation Date/Type/Reason Admit Date/Time Aug 02, 2018 at 22:00 Initial Consult Date 08/03/18 Type of Consult Pulmonary Requesting Provider: DEJUAN ORTIZ MD, [facility] Date/Time of Note DATE: 08/09/18 TIME: 10:50 24 HR Interval Summary Free Text/Dictation Patient's condition is stable. Has remained hemodynamically stable. General exam; elderly male, on ventilator via tracheostomy, awake and alert. Currently in no distress. Exam/Review of Systems Exam Vitals Vital Signs Date Temp Pulse Resp B/P (MAP) Pulse Ox O2 O2 Flow FiO2 Time Delivery Rate 08/09/18 77 22 97 30 09:15 08/09/18 98.0 149/66 Mechanical 08:00 (93) Ventilator Trach Collar Intake and Output 08/08/18 08/08/18 08/09/18 1515:00 23:00 07:00 IntakeIntake Total 600 ml 300 ml OutputOutput Total 240 ml 500 ml BalanceBalance 360 ml -200 ml Exam H EENT exam; supple neck, no JVD. No lymphadenopathy. Midline trachea. No thyromegaly. The patient is edentulous. Tracheostomy in place. Chest exam; diminished breath sounds right lung. Left lung is fairly clear. S1-S2 audible, no murmurs. Regular rhythm. Right pleural drainage catheter in place. Abdomen exam; soft, no organomegaly. Bowel is audible. Extremity exam; no peripheral edema clubbing. WARP TESTER exam; no focal deficit. Results Result Diagram: 08/09/18 0740 08/09/18 0740 Results 24hrs Laboratory Tests Test 08/08/18 11:47 08/08/18 17:24 08/08/18 20:50 08/09/18 07:40 Bedside Glucose 191 139 133 White Blood Count 10.1 Red Blood Count 3.28 L Hemoglobin 8.2 L Hematocrit 27.0 L Mean Corpuscular 82.3 Volume Mean Corpuscular 25.0 L Hemoglobin Mean Corpuscular 30.4 L Hemoglobin Concent Red Cell 18.1 H Distribution Width Platelet Count 167 Mean Platelet Volume 9.4 Immature 1.100 H Granulocytes % Neutrophils % 72.5 Lymphocytes % 12.6 L Monocytes % 10.7 Eosinophils % 2.5 Basophils % 0.6 Nucleated Red Blood 0.0 Cells % Immature 0.110 H Granulocytes # Neutrophils # 7.3 Lymphocytes # 1.3 Monocytes # 1.1 H Eosinophils # 0.3 Basophils # 0.1 Nucleated Red Blood 0.0 Cells # Sodium Level 138 Potassium Level 4.3 Chloride Level 107 Carbon Dioxide Level 24 Anion Gap 7 Blood Urea Nitrogen 27 H Creatinine 2.05 H Est Glomerular 32 L Filtrat Rate mL/min Glucose Level 94 Calcium Level 8.3 L Phosphorus Level 4.9 Magnesium Level 2.1 Test 08/09/18 07:56 Bedside Glucose 102 Medications Medication Current Medications IV Flush (NS 3 ml) 3 ml PER PROTOCOL IV ; Start 08/03/18 at 00:00 Ondansetron HCl (Zofran Inj) 4 mg Q6H PRN IV NAUSEA/VOMITING Last administered on 08/03/18at 03:48; Admin Dose 4 MG; Start 08/03/18 at 00:00 Nitroglycerin (Nitroglycerin (Sl Tab) 0.4 Mg) 1 tab Q5M PRN SL .CHEST PAIN; Start 08/03/18 at 00:00 Acetaminophen (Tylenol Tab) 650 mg Q6H PRN PO .PAIN 1-3 OR TEMP Last adminis tered on 08/04/18at 03:49; Admin Dose 650 MG; Start 08/03/18 at 00:00 Morphine Sulfate (morphine) 2 mg Q4H PRN IV .PAIN 7-10 Last administered on 08/09/18 09:58; Admin Dose 2 MG; Start 08/03/18 at 00:00 Docusate Sodium (Colace) 100 mg Q12H PRN PO .CONSTIPATION; Start 08/03/18 at 00:00 Bisacodyl (Dulcolax) 5 mg DAILY PRN PO .CONSTIPATION; Start 08/03/18 at 00:00 Ascorbic Acid (Vitamin C) 500 mg DAILY PO Last administered on 08/09/18 09:58; Admin Dose 500 MG; Start 08/03/18 at 09:00 Chlorhexidine Gluconate (Peridex) 15 ml Q12H MM Last administered on 08/09/18 00:09; Admin Dose 15 ML; Start 08/03/18 at 00:00 Digoxin (Digoxin) 0.25 mg DAILY PO Last administered on 08/09/18 10:03; Admin Dose 0.25 MG; Start 08/03/18 at 09:00 Ferrous Sulfate (Ferrous Sulfate (Ec)) 325 mg DAILY PO Last administered on 08/09/18 09:57; Admin Dose 325 MG; Start 08/03/18 at 09:00 Pantoprazole (Protonix Tab) 40 mg AC BREAKFAST PO Last administered on 08/09/18 07:54; Admin Dose 40 MG; Start 08/03/18 at 07:25 Sucralfate (Carafate) 1 gm AC MEALS AND BEDTIME PO Last administered on 08/09/18 07:54; Admin Dose 1 GM; Start 08/03/18 at 07:25 Albuterol (Proventil 0.083% (Neb)) 2.5 mg Q4H RESP THERAPY PRN NEB TRACHEOSTOMY Last administered on 08/08/18 15:37; Admin Dose 2.5 MG; Start 08/02/18 at 23:45 Multivitamins/ Minerals (Theragran-M) 1 tab DAILY PO Last administered on 08/09/18 09:57; Admin Dose 1 TAB; Start 08/03/18 at 09:00 Miscellaneous Information 1 ea NOTE XX ; Start 08/02/18 at 23:45 Glucose (Glutose) 15 gm Q15M PRN PO DECREASED GLUCOSE; Start 08/02/18 at 23:45 Glucose (Glutose) 22.5 gm Q15M PRN PO DECREASED GLUCOSE; Start 08/02/18 at 23:45 Dextrose (D50w Syringe) 25 ml Q15M PRN IV DECREASED GLUCOSE; Start 08/02/18 at 23:45 Dextrose (D50w Syringe) 50 ml Q15M PRN IV DECREASED GLUCOSE; Start 08/02/18 at 23:45 Glucagon (Glucagen) 1 mg Q15M PRN IM DECREASED GLUCOSE; Start 08/02/18 at 23:45 Glucose (Glutose) 15 gm Q15M PRN BUCCAL DECREASED GLUCOSE; Start 08/02/18 at 23:45 Simethicone (Mylicon) 80 mg Q8H PRN PO DISTENSION/GAS/BLOATING Last administered on 08/04/18 01:55; Admin Dose 80 MG; Start 08/03/18 at 04:30 Amlodipine Besylate (Norvasc) 5 mg DAILY PO Last administered on 08/09/18 09:57; Admin Dose 5 MG; Start 08/03/18 at 09:00 Fluconazole (Diflucan) 100 mg DAILY PO Last administered on 08/09/18 09:57; Admin Dose 100 MG; Start 08/03/18 at 09:00 Linezolid (Zyvox) 600 mg BID PO Last administered on 08/09/18 09:57; Admin Dose 600 MG; Start 08/03/18 at 09:00 Amikacin Sulfate (Amikacin Iv Per Pharmacy) AMIKACIN PER PHARMACY NOTE XX ; Start 08/03/18 at 11:30 Insulin Aspart (Novolog Insulin Pen) NOVOLOG *MILD* ALGORI... AC MEALS AND BEDTIME SC Last administered on 08/08/18 11:55; Admin Dose 2 UNIT; Start 08/03/18 at 17:25 Linagliptin (Tradjenta) 5 mg DAILY PO Last administered on 08/09/18 09:57; Admin Dose 5 MG; Start 08/04/18 at 09:00 Diagnostic Test (Pha) (Accu-Chek) 1 ea 02 XX Last administered on 08/05/18 01:28; Admin Dose 1 EA; Start 08/04/18 at 02:00 Insulin Aspart (Novolog Insulin Pen) 10 unit WITH MEALS SC Last administered on 08/09/18 07:59; Admin Dose 10 UNIT; Start 08/03/18 at 17:55 Acetylcysteine (Mucomyst) 2 ml Q8H RESP THERAPY NEB Last administered on 08/09/18 08:07; Admin Dose 2 ML; Start 08/04/18 at 08:00 Collagenase (Santyl) 1 applic DAILY TOP Last administered on 08/09/18 10:04; Admin Dose 1 APPLIC; Start 08/04/18 at 09:00 Amikacin Sulfate 500 mg/Sodium Chloride 102 ml @ 101.6 mls/ hr Q48H IVPB Last administered on 08/07/18 20:56; Admin Dose 101.6 MLS/HR; Start 08/05/18 at 20:00 Diphenhydramine HCl (Benadryl) 25 mg Q6H PRN IV rash or itching; Start 08/05/18 at 11:00 Metoprolol Tartrate (Lopressor) 25 mg BID PO Last administered on 08/09/18 09:58; Admin Dose 25 MG; Start 08/06/18 at 13:30 Insulin Glargine (Lantus) 18 units DAILY@2000 SC Last administered on 08/08/18 20:53; Admin Dose 18 UNITS; Start 08/07/18 at 20:00 Nystatin (Nystatin Powder) 1 applic BID TOP Last administered on 08/09/18 10:04; Admin Dose 1 APPLIC; Start 08/08/18 at 12:30 Enoxaparin Sodium (Lovenox) 30 mg Q24H SC Last administered on 08/08/18 14:40; Admin Dose 30 MG; Start 08/08/18 at 12:30 Enoxaparin Sodium (Lovenox) 80 mg Q24H SC Last administered on 08/08/18 15:00; Admin Dose 80 MG; Start 08/08/18 at 12:30 Furosemide (Lasix) 40 mg BID IV Last administered on 08/09/18 09:57; Admin Dose 40 MG; Start 08/09/18 at 09:00 WARREN HOLLIS Aug 09, 2018 10:52
--- NOTE | 2018-08-09 11:17 | PN ---
Date/Time of Note Date/Time of Note DATE: 08/09/18 TIME: 11:14 Assessment/Plan VTE Prophylaxis Risk score (from Ns)>0 risk: 7 SCD applied (from Ns): No SCD contraindicated: other Pharmacological prophylaxis: LMWH Lines/Catheters IV Catheter Type [facility]from [facility] Mid Line Urinary Cath still in place: No Assessment/Plan Hospital Course S: Patient seen by cardiothoracic surgery, pulmonary, and renal teams this morning. No acute events overnight. Seen by cardiology team yesterday. O: VS- see below PE: General: Obese man lying in bed, trach HEENT: Atraumatic, normocephalic. Neck: trach to vent Lungs: Mechanical, some coarse breath sounds throughout, chest tubes in place Heart: Normal S1-S2, Regular rhythm and rate. No murmur, S3, or S4 Abdomen: Soft , obese, nontender, nondistended , bowel sounds are present. Extremities: 1+ bilateral lower extremity edema Neurologic: awake, alert. Able to talk with deflated cuff. Skin: Raised, erythematous macular rash across abdomen Assessment/Plan: 68-year-old man with a past medical history of chronic respiratory failure status post trach, who was transferred from [facility] to [facility] for evaluation of loculated empyema ad possible VATS. The patient was a previous resident of [facility], was noted to have a loculated fluid effusion. The patient, after attempted bronchoscopy and post chest-tube without improvement of loculated fluid was subsequently transferred to [facility] for surgical evaluation. #1 acute on chronic hypoxemic and hypercarbic respiratory failure-Patient is on chronic ventilatory support. -Continue vent management as per pulmonary, antibiotics as ordered by ID team #2 Right pulmonary opacification plus infiltrates-Suspicion likely for large loculated thick pleural effusion, loculated empyema s/p failed bronchoscopy and chest tube prior to admission, but again did receive pigtail catheter x2 2 days ago with purulent/pus drainage -Continue broad-spectrum antibiotics of Zyvox, fluconazole, as well as amikacin. ID consulted -CT surgery has been consulted by pulmonary medicine -Per discussion with them despite pigtail catheter placement, patient likely will still need VATS for decortication procedure given chest x-ray findings, to be done in the next 48 hours. #3 Paroxysmal atrial fibrillation-Currently in sinus rhythm. - Continue to monitor. - Xarelto on hold at the current time, was switched to Lovenox earlier this admission but that was also held given procedure yesterday, will resume today #4 anemia of chronic disease: Patient received PRBC transfusion 5 days ago, hemoglobin today 8.2 -Monitor, transfuse for Hgb<7 or for symptomatic anemia #5 Chronic kidney disease stage III r/o FROILAN: Creatinine appears to be at baseline in the low 2 range -nephro consulted, f/u trend and recommendations #6 diabetes mellitus: A1c was 8.6, sugars are stable -Monitor sugars #7 diastolic CHF - chronic with bilateral lower extremity edema-may also be related to anasarca from #8 -Monitor for now #8 Hepatic cirrhosis-Chest CT shows possible liver cirrhosis confirmed on USS. -Monitor, f/u hepatitis serologies. #9 DVT GI prophylaxis: lovenox, Protonix Result Diagram: 08/09/18 0740 08/09/18 0740 Results 24hrs Laboratory Tests Test 08/08/18 11:47 08/08/18 17:24 08/08/18 20:50 08/09/18 07:40 Bedside Glucose 191 139 133 White Blood Count 10.1 Red Blood Count 3.28 L Hemoglobin 8.2 L Hematocrit 27.0 L Mean Corpuscular 82.3 Volume Mean Corpuscular 25.0 L Hemoglobin Mean Corpuscular 30.4 L Hemoglobin Concent Red Cell 18.1 H Distribution Width Platelet Count 167 Mean Platelet Volume 9.4 Immature 1.100 H Granulocytes % Neutrophils % 72.5 Lymphocytes % 12.6 L Monocytes % 10.7 Eosinophils % 2.5 Basophils % 0.6 Nucleated Red Blood 0.0 Cells % Immature 0.110 H Granulocytes # Neutrophils # 7.3 Lymphocytes # 1.3 Monocytes # 1.1 H Eosinophils # 0.3 Basophils # 0.1 Nucleated Red Blood 0.0 Cells # Sodium Level 138 Potassium Level 4.3 Chloride Level 107 Carbon Dioxide Level 24 Anion Gap 7 Blood Urea Nitrogen 27 H Creatinine 2.05 H Est Glomerular 32 L Filtrat Rate mL/min Glucose Level 94 Calcium Level 8.3 L Phosphorus Level 4.9 Magnesium Level 2.1 Test 08/09/18 07:56 Bedside Glucose 102 Exam/Review of Systems Exam Vitals Vital Signs Date Temp Pulse Resp B/P (MAP) Pulse Ox O2 O2 Flow FiO2 Time Delivery Rate 08/09/18 77 22 97 30 09:15 08/09/18 98.0 149/66 Mechanical 08:00 (93) Ventilator Trach Collar Intake and Output 08/08/18 08/08/18 08/09/18 1515:00 23:00 07:00 IntakeIntake Total 600 ml 300 ml OutputOutput Total 240 ml 500 ml BalanceBalance 360 ml -200 ml Results Results 24hrs Laboratory Tests Test 08/08/18 11:47 08/08/18 17:24 08/08/18 20:50 08/09/18 07:40 Bedside Glucose 191 139 133 White Blood Count 10.1 Red Blood Count 3.28 L Hemoglobin 8.2 L Hematocrit 27.0 L Mean Corpuscular 82.3 Volume Mean Corpuscular 25.0 L Hemoglobin Mean Corpuscular 30.4 L Hemoglobin Concent Red Cell 18.1 H Distribution Width Platelet Count 167 Mean Platelet Volume 9.4 Immature 1.100 H Granulocytes % Neutrophils % 72.5 Lymphocytes % 12.6 L Monocytes % 10.7 Eosinophils % 2.5 Basophils % 0.6 Nucleated Red Blood 0.0 Cells % Immature 0.110 H Granulocytes # Neutrophils # 7.3 Lymphocytes # 1.3 Monocytes # 1.1 H Eosinophils # 0.3 Basophils # 0.1 Nucleated Red Blood 0.0 Cells # Sodium Level 138 Potassium Level 4.3 Chloride Level 107 Carbon Dioxide Level 24 Anion Gap 7 Blood Urea Nitrogen 27 H Creatinine 2.05 H Est Glomerular 32 L Filtrat Rate mL/min Glucose Level 94 Calcium Level 8.3 L Phosphorus Level 4.9 Magnesium Level 2.1 Test 08/09/18 07:56 Bedside Glucose 102 Medications Medication Current Medications IV Flush (NS 3 ml) 3 ml PER PROTOCOL IV ; Start 08/03/18 at 00:00 Ondansetron HCl (Zofran Inj) 4 mg Q6H PRN IV NAUSEA/VOMITING Last administered on 08/03/18at 03:48; Admin Dose 4 MG; Start 08/03/18 at 00:00 Nitroglycerin (Nitroglycerin (Sl Tab) 0.4 Mg) 1 tab Q5M PRN SL .CHEST PAIN; Start 08/03/18 at 00:00 Acetaminophen (Tylenol Tab) 650 mg Q6H PRN PO .PAIN 1-3 OR TEMP Last administered on 08/04/18 03:49; Admin Dose 650 MG; Start 08/03/18 at 00:00 Morphine Sulfate (morphine) 2 mg Q4H PRN IV .PAIN 7-10 Last administered on 08/09/18 09:58; Admin Dose 2 MG; Start 08/03/18 at 00:00 Docusate Sodium (Colace) 100 mg Q12H PRN PO .CONSTIPATION; Start 08/03/18 at 00:00 Bisacodyl (Dulcolax) 5 mg DAILY PRN PO .CONSTIPATION; Start 08/03/18 at 00:00 Ascorbic Acid (Vitamin C) 500 mg DAILY PO Last administered on 08/09/18 09:58; Admin Dose 500 MG; Start 08/03/18 at 09:00 Chlorhexidine Gluconate (Peridex) 15 ml Q12H MM Last administered on 08/09/18 00:09; Admin Dose 15 ML; Start 08/03/18 at 00:00 Digoxin (Digoxin) 0.25 mg DAILY PO Last administered on 08/09/18 10:03; Admin Dose 0.25 MG; Start 08/03/18 at 09:00 Ferrous Sulfate (Ferrous Sulfate (Ec)) 325 mg DAILY PO Last administered on 08/09/18 09:57; Admin Dose 325 MG; Start 08/03/18 at 09:00 Pantoprazole (Protonix Tab) 40 mg AC BREAKFAST PO Last administered on 08/09/18 07:54; Admin Dose 40 MG; Start 08/03/18 at 07:25 Sucralfate (Carafate) 1 gm AC MEALS AND BEDTIME PO Last administered on 08/09/18 07:54; Admin Dose 1 GM; Start 08/03/18 at 07:25 Albuterol (Proventil 0.083% (Neb)) 2.5 mg Q4H RESP THERAPY PRN NEB TRACHEOSTOMY Last administered on 08/08/18 15:37; Admin Dose 2.5 MG; Start 08/02/18 at 23:45 Multivitamins/ Minerals (Theragran-M) 1 tab DAILY PO Last administered on 08/09/18 09:57; Admin Dose 1 TAB; Start 08/03/18 at 09:00 Miscellaneous Information 1 ea NOTE XX ; Start 08/02/18 at 23:45 Glucose (Glutose) 15 gm Q15M PRN PO DECREASED GLUCOSE; Start 08/02/18 at 23:45 Glucose (Glutose) 22.5 gm Q15M PRN PO DECREASED GLUCOSE; Start 08/02/18 at 23:45 Dextrose (D50w Syringe) 25 ml Q15M PRN IV DECREASED GLUCOSE; Start 08/02/18 at 23:45 Dextrose (D50w Syringe) 50 ml Q15M PRN IV DECREASED GLUCOSE; Start 08/02/18 at 23:45 Glucagon (Glucagen) 1 mg Q15M PRN IM DECREASED GLUCOSE; Start 08/02/18 at 23:45 Glucose (Glutose) 15 gm Q15M PRN BUCCAL DECREASED GLUCOSE; Start 08/02/18 at 23:45 Simethicone (Mylicon) 80 mg Q8H PRN PO DISTENSION/GAS/BLOATING Last administered on 08/04/18 01:55; Admin Dose 80 MG; Start 08/03/18 at 04:30 Amlodipine Besylate (Norvasc) 5 mg DAILY PO Last administered on 08/09/18 09:57; Admin Dose 5 MG; Start 08/03/18 at 09:00 Fluconazole (Diflucan) 100 mg DAILY PO Last administered on 08/09/18 09:57; Admin Dose 100 MG; Start 08/03/18 at 09:00 Linezolid (Zyvox) 600 mg BID PO Last administered on 08/09/18 09:57; Admin Dose 600 MG; Start 08/03/18 at 09:00 Amikacin Sulfate (Amikacin Iv Per Pharmacy) AMIKACIN PER PHARMACY NOTE XX ; Start 08/03/18 at 11:30 Insulin Aspart (Novolog Insulin Pen) NOVOLOG *MILD* ALGORI... AC MEALS AND BEDTIME SC Last administered on 08/08/18 11:55; Admin Dose 2 UNIT; Start 08/03/18 at 17:25 Linagliptin (Tradjenta) 5 mg DAILY PO Last administered on 08/09/18 09:57; Admin Dose 5 MG; Start 08/04/18 at 09:00 Diagnostic Test (Pha) (Accu-Chek) 1 ea 02 XX Last administered on 08/05/18 01:28; Admin Dose 1 EA; Start 08/04/18 at 02:00 Insulin Aspart (Novolog Insulin Pen) 10 unit WITH MEALS SC Last administered on 08/09/18 07:59; Admin Dose 10 UNIT; Start 08/03/18 at 17:55 Acetylcysteine (Mucomyst) 2 ml Q8H RESP THERAPY NEB Last administered on 08/09/18 08:07; Admin Dose 2 ML; Start 08/04/18 at 08:00 Collagenase (Santyl) 1 applic DAILY TOP Last administered on 08/09/18 10:04; Admin Dose 1 APPLIC; Start 08/04/18 at 09:00 Amikacin Sulfate 500 mg/Sodium Chloride 102 ml @ 101.6 mls/ hr Q48H IVPB Last administered on 08/07/18 20:56; Admin Dose 101.6 MLS/HR; Start 08/05/18 at 20:00 Diphenhydramine HCl (Benadryl) 25 mg Q6H PRN IV rash or itching; Start 08/05/18 at 11:00 Metoprolol Tartrate (Lopressor) 25 mg BID PO Last administered on 08/09/18 09:58; Admin Dose 25 MG; Start 08/06/18 at 13:30 Insulin Glargine (Lantus) 18 units DAILY@2000 SC Last administered on 08/08/18 20:53; Admin Dose 18 UNITS; Start 08/07/18 at 20:00 Nystatin (Nystatin Powder) 1 applic BID TOP Last administered on 08/09/18 10:04; Admin Dose 1 APPLIC; Start 08/08/18 at 12:30 Enoxaparin Sodium (Lovenox) 30 mg Q24H SC Last administered on 08/08/18 14:40; Admin Dose 30 MG; Start 08/08/18 at 12:30 Enoxaparin Sodium (Lovenox) 80 mg Q24H SC Last administered on 08/08/18 15:00; Admin Dose 80 MG; Start 08/08/18 at 12:30 Furosemide (Lasix) 40 mg BID IV Last administered on 08/09/18 09:57; Admin Dose 40 MG; Start 08/09/18 at 09:00 JEIMY LOMAS Aug 09, 2018 11:17
[2018-08-09] MEDS ORDERED: METOPROLOL 25 MG TAB PO SCH (11:30)
[2018-08-09] MEDS: ENOXAPARIN 80 MG/0.8 ML SYG SC SCH (11:41)
[2018-08-09] MEDS: ENOXAPARIN 30 MG/0.3 ML SYG SC SCH (11:42)
--- NOTE | 2018-08-09 14:15 | CONS ---
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 This is in a controlled environment with controlled dietary input Qualifiers: Diabetes mellitus correction insulin use: with correction use Chronic kidney disease stage: stage 3 (moderate) Qualified Codes: E11.22 - Type 2 diabetes mellitus with diabetic chronic kidney disease; N18.3 - Chronic kidney disease, stage 3 (moderate); Z79.4 - meterman (current) use of insulin Consultation Date/Type/Reason Admit Date/Time Aug 02, 2018 at 22:00 Initial Consult Date 08/03/18 Type of Consult Endocrinology Reason for Consultation Diabetes mellitus type 2; chronic kidney disease; Requesting Provider: DEJUAN ORTIZ MD, [facility] Date/Time of Note DATE: 08/09/18 TIME: 14:13 24 HR Interval Summary Free Text/Dictation Patient remains on ventilator with trach, nonresponsive to my stimulation Subjective hx not possible: pt non-verbal Exam/Review of Systems Exam Vitals Vital Signs Date Temp Pulse Resp B/P (MAP) Pulse Ox O2 O2 Flow FiO2 Time Delivery Rate 08/09/18 69 20 98 30 13:15 08/09/18 98.0 149/66 Mechanical 08:00 (93) Ventilator Trach Collar Intake and Output 08/08/18 08/08/18 08/09/18 1515:00 23:00 07:00 IntakeIntake Total 600 ml 300 ml OutputOutput Total 240 ml 500 ml BalanceBalance 360 ml -200 ml Constitutional: non-verbal ENMT: intubated (Tracheostomy) Respiratory: clear to auscultation, normal air movement Cardiovascular: regular rate and rhythm, nl pulses Results Result Diagram: 08/09/18 0740 08/09/18 0740 Results 24hrs Laboratory Tests Test 08/08/18 17:24 08/08/18 20:50 08/09/18 07:40 08/09/18 07:56 Bedside Glucose 139 133 102 White Blood Count 10.1 Red Blood Count 3.28 L Hemoglobin 8.2 L Hematocrit 27.0 L Mean Corpuscular 82.3 Volume Mean Corpuscular 25.0 L Hemoglobin Mean Corpuscular 30.4 L Hemoglobin Concent Red Cell 18.1 H Distribution Width Platelet Count 167 Mean Platelet Volume 9.4 Immature 1.100 H Granulocytes % Neutrophils % 72.5 Lymphocytes % 12.6 L Monocytes % 10.7 Eosinophils % 2.5 Basophils % 0.6 Nucleated Red Blood 0.0 Cells % Immature 0.110 H Granulocytes # Neutrophils # 7.3 Lymphocytes # 1.3 Monocytes # 1.1 H Eosinophils # 0.3 Basophils # 0.1 Nucleated Red Blood 0.0 Cells # Sodium Level 138 Potassium Level 4.3 Chloride Level 107 Carbon Dioxide Level 24 Anion Gap 7 Blood Urea Nitrogen 27 H Creatinine 2.05 H Est Glomerular 32 L Filtrat Rate mL/min Glucose Level 94 Calcium Level 8.3 L Phosphorus Level 4.9 Magnesium Level 2.1 Test 08/09/18 11:42 Bedside Glucose 104 Medications Medication Current Medications IV Flush (NS 3 ml) 3 ml PER PROTOCOL IV ; Start 08/03/18 at 00:00 Ondansetron HCl (Zofran Inj) 4 mg Q6H PRN IV NAUSEA/VOMITING Last administered on 08/03/18 03:48; Admin Dose 4 MG; Start 08/03/18 at 00:00 Nitroglycerin (Nitroglycerin (Sl Tab) 0.4 Mg) 1 tab Q5M PRN SL .CHEST PAIN; Start 08/03/18 at 00:00 Acetaminophen (Tylenol Tab) 650 mg Q6H PRN PO .PAIN 1-3 OR TEMP Last administered on 08/04/18 03:49; Admin Dose 650 MG; Start 08/03/18 at 00:00 Morphine Sulfate (morphine) 2 mg Q4H PRN IV .PAIN 7-10 Last administered on 08/09/18 09:58; Admin Dose 2 MG; Start 08/03/18 at 00:00 Docusate Sodium (Colace) 100 mg Q12H PRN PO .CONSTIPATION; Start 08/03/18 at 00:00 Bisacodyl (Dulcolax) 5 mg DAILY PRN PO .CONSTIPATION; Start 08/03/18 at 00:00 Ascorbic Acid (Vitamin C) 500 mg DAILY PO Last administered on 08/09/18 09:58; Admin Dose 500 MG; Start 08/03/18 at 09:00 Chlorhexidine Gluconate (Peridex) 15 ml Q12H MM Last administered on 08/09/18 11:38; Admin Dose 15 ML; Start 08/03/18 at 00:00 Digoxin (Digoxin) 0.25 mg DAILY PO Last administered on 08/09/18 10:03; Admin Dose 0.25 MG; Start 08/03/18 at 09:00 Ferrous Sulfate (Ferrous Sulfate (Ec)) 325 mg DAILY PO Last administered on 08/09/18 09:57; Admin Dose 325 MG; Start 08/03/18 at 09:00 Pantoprazole (Protonix Tab) 40 mg AC BREAKFAST PO Last administered on 08/09/18 07:54; Admin Dose 40 MG; Start 08/03/18 at 07:25 Sucralfate (Carafate) 1 gm AC MEALS AND BEDTIME PO Last administered on 08/09/18 11:38; Admin Dose 1 GM; Start 08/03/18 at 07:25 Albuterol (Proventil 0.083% (Neb)) 2.5 mg Q4H RESP THERAPY PRN NEB TRACHEOSTOMY Last administered on 08/08/18 15:37; Admin Dose 2.5 MG; Start 08/02/18 at 23:45 Multivitamins/ Minerals (Theragran-M) 1 tab DAILY PO Last administered on 08/09/18 09:57; Admin Dose 1 TAB; Start 08/03/18 at 09:00 Miscellaneous Information 1 ea NOTE XX ; Start 08/02/18 at 23:45 Glucose (Glutose) 15 gm Q15M PRN PO DECREASED GLUCOSE; Start 08/02/18 at 23:45 Glucose (Glutose) 22.5 gm Q15M PRN PO DECREASED GLUCOSE; Start 08/02/18 at 23:45 Dextrose (D50w Syringe) 25 ml Q15M PRN IV DECREASED GLUCOSE; Start 08/02/18 at 23:45 Dextrose (D50w Syringe) 50 ml Q15M PRN IV DECREASED GLUCOSE; Start 08/02/18 at 23:45 Glucagon (Glucagen) 1 mg Q15M PRN IM DECREASED GLUCOSE; Start 08/02/18 at 23:45 Glucose (Glutose) 15 gm Q15M PRN BUCCAL DECREASED GLUCOSE; Start 08/02/18 at 23:45 Simethicone (Mylicon) 80 mg Q8H PRN PO DISTENSION/GAS/BLOATING Last administered on 08/04/18 01:55; Admin Dose 80 MG; Start 08/03/18 at 04:30 Amlodipine Besylate (Norvasc) 5 mg DAILY PO Last administered on 08/09/18 09:57; Admin Dose 5 MG; Start 08/03/18 at 09:00 Fluconazole (Diflucan) 100 mg DAILY PO Last administered on 08/09/18 09:57; Admin Dose 100 MG; Start 08/03/18 at 09:00 Linezolid (Zyvox) 600 mg BID PO Last administered on 08/09/18 09:57; Admin Dose 600 MG; Start 08/03/18 at 09:00 Amikacin Sulfate (Amikacin Iv Per Pharmacy) AMIKACIN PER PHARMACY NOTE XX ; Start 08/03/18 at 11:30 Insulin Aspart (Novolog Insulin Pen) NOVOLOG *MILD* ALGORI... AC MEALS AND BEDTIME SC Last administered on 08/08/18 11:55; Admin Dose 2 UNIT; Start 08/03/18 at 17:25 Linagliptin (Tradjenta) 5 mg DAILY PO Last administered on 08/09/18 09:57; Admin Dose 5 MG; Start 08/04/18 at 09:00 Diagnostic Test (Pha) (Accu-Chek) 1 ea 02 XX Last administered on 08/05/18 01:28; Admin Dose 1 EA; Start 08/04/18 at 02:00 Insulin Aspart (Novolog Insulin Pen) 10 unit WITH MEALS SC Last administered on 08/09/18 11:46; Admin Dose 10 UNIT; Start 08/03/18 at 17:55 Acetylcysteine (Mucomyst) 2 ml Q8H RESP THERAPY NEB Last administered on 08/09/18 08:07; Admin Dose 2 ML; Start 08/04/18 at 08:00 Collagenase (Santyl) 1 applic DAILY TOP Last administered on 08/09/18 10:04; Admin Dose 1 APPLIC; Start 08/04/18 at 09:00 Amikacin Sulfate 500 mg/Sodium Chloride 102 ml @ 101.6 mls/ hr Q48H IVPB Last administered on 08/07/18 20:56; Admin Dose 101.6 MLS/HR; Start 08/05/18 at 20:00 Diphenhydramine HCl (Benadryl) 25 mg Q6H PRN IV rash or itching; Start 08/05/18 at 11:00 Metoprolol Tartrate (Lopressor) 25 mg BID PO Last administered on 08/09/18 09:58; Admin Dose 25 MG; Start 08/06/18 at 13:30 Insulin Glargine (Lantus) 18 units DAILY@2000 SC Last administered on 08/08/18at 20:53; Admin Dose 18 UNITS; Start 08/07/18 at 20:00 Nystatin (Nystatin Powder) 1 applic BID TOP Last administered on 08/09/18at 10:04; Admin Dose 1 APPLIC; Start 08/08/18 at 12:30 Enoxaparin Sodium (Lovenox) 30 mg Q24H SC Last administered on 08/09/18 11:42; Admin Dose 30 MG; Start 08/08/18 at 12:30 Enoxaparin Sodium (Lovenox) 80 mg Q24H SC Last administered on 08/09/18 11:41; Admin Dose 80 MG; Start 08/08/18 at 12:30 Furosemide (Lasix) 40 mg BID IV Last administered on 08/09/18 09:57; Admin Dose 40 MG; Start 08/09/18 at 09:00 Miscellaneous Information (*Rx Drug Level Order Reminder*) AMIKACIN TROUGH @ 1,900 1900 ONCE XX ; Start 08/09/18 at 19:00; Stop 08/09/18 at 19:01 Miscellaneous Information (*Rx Drug Level Order Reminder*) AMIKACIN PEAK 08/09 @ 2,130 2130 ONCE XX ; Start 08/09/18 at 21:30; Stop 08/09/18 at 21:31 SAMARIA LONGORIA MD Aug 09, 2018 14:15
--- NOTE | 2018-08-09 15:24 | CONS ---
Assessment/Plan Assessment/Plan Hospital Course (Demo Recall) No events, looks comfortable Microbiology: Sputum culture growing Serratia and pseudomonas aeruginosa, multidrug-resistant, urine culture grew Annmarie albicans Antimicrobials: Amikacin, Zyvox, fluconazole Indwelling: Trach PEG, R CT's x2 Physical examination: Well-developed obese fragile elderly man who is awake in no distress. Head atraumatic normocephalic Neck is supple, tracheostomy present. Chest rise symmetrical breath sounds diminished bases. Heart: S1-S2. Abdomen soft bowel sounds present, extremities without cyanosis, + edema Assessment: 1. Systemic inflammatory response syndrome with leukocytosis 2 to #2 2. HCAP with loculated pleural effusion possible empyema, s/p CT's 3. Acute on chronic kidney disease 4. Dysphagia 5. Fungal UTI 6. Paroxysmal atrial fibrillation 7. Diabetes Plan: Remains unchanged, continue abx, f/u pulmonary rec-s Consultation Date/Type/Reason Admit Date/Time Aug 02, 2018 at 22:00 Initial Consult Date Type of Consult id Requesting Provider: DEJUAN ORTIZ MD, [facility] Date/Time of Note DATE: 08/09/18 TIME: 15:23 Exam/Review of Systems Exam Vitals Vital Signs Date Temp Pulse Resp B/P (MAP) Pulse Ox O2 O2 Flow FiO2 Time Delivery Rate 08/09/18 62 16 98 30 15:10 08/09/18 98.0 141/71 12:00 (94) 08/09/18 Mechanical 08:00 Ventilator Trach Collar Intake and Output 08/08/18 08/08/18 08/09/18 1515:00 23:00 07:00 IntakeIntake Total 600 ml 300 ml OutputOutput Total 240 ml 500 ml BalanceBalance 360 ml -200 ml Results Result Diagram: 08/09/18 0740 08/09/18 0740 Results 24hrs Laboratory Tests Test 08/08/18 17:24 08/08/18 20:50 08/09/18 07:40 08/09/18 07:56 Bedside Glucose 139 133 102 White Blood Count 10.1 Red Blood Count 3.28 L Hemoglobin 8.2 L Hematocrit 27.0 L Mean Corpuscular 82.3 Volume Mean Corpuscular 25.0 L Hemoglobin Mean Corpuscular 30.4 L Hemoglobin Concent Red Cell 18.1 H Distribution Width Platelet Count 167 Mean Platelet Volume 9.4 Immature 1.100 H Granulocytes % Neutrophils % 72.5 Lymphocytes % 12.6 L Monocytes % 10.7 Eosinophils % 2.5 Basophils % 0.6 Nucleated Red Blood 0.0 Cells % Immature 0.110 H Granulocytes # Neutrophils # 7.3 Lymphocytes # 1.3 Monocytes # 1.1 H Eosinophils # 0.3 Basophils # 0.1 Nucleated Red Blood 0.0 Cells # Sodium Level 138 Potassium Level 4.3 Chloride Level 107 Carbon Dioxide Level 24 Anion Gap 7 Blood Urea Nitrogen 27 H Creatinine 2.05 H Est Glomerular 32 L Filtrat Rate mL/min Glucose Level 94 Calcium Level 8.3 L Phosphorus Level 4.9 Magnesium Level 2.1 Test 08/09/18 11:42 Bedside Glucose 104 Medications Medication Current Medications IV Flush (NS 3 ml) 3 ml PER PROTOCOL IV ; Start 08/03/18 at 00:00 Ondansetron HCl (Zofran Inj) 4 mg Q6H PRN IV NAUSEA/VOMITING Last administered on 08/03/18 03:48; Admin Dose 4 MG; Start 08/03/18 at 00:00 Nitroglycerin (Nitroglycerin (Sl Tab) 0.4 Mg) 1 tab Q5M PRN SL .CHEST PAIN; Start 08/03/18 at 00:00 Acetaminophen (Tylenol Tab) 650 mg Q6H PRN PO .PAIN 1-3 OR TEMP Last administered on 08/04/18 03:49; Admin Dose 650 MG; Start 08/03/18 at 00:00 Morphine Sulfate (morphine) 2 mg Q4H PRN IV .PAIN 7-10 Last administered on 08/09/18 09:58; Admin Dose 2 MG; Start 08/03/18 at 00:00 Docusate Sodium (Colace) 100 mg Q12H PRN PO .CONSTIPATION; Start 08/03/18 at 00:00 Bisacodyl (Dulcolax) 5 mg DAILY PRN PO .CONSTIPATION; Start 08/03/18 at 00:00 Ascorbic Acid (Vitamin C) 500 mg DAILY PO Last administered on 08/09/18 09:58; Admin Dose 500 MG; Start 08/03/18 at 09:00 Chlorhexidine Gluconate (Peridex) 15 ml Q12H MM Last administered on 08/09/18 11:38; Admin Dose 15 ML; Start 08/03/18 at 00:00 Digoxin (Digoxin) 0.25 mg DAILY PO Last administered on 08/09/18 10:03; Admin Dose 0.25 MG; Start 08/03/18 at 09:00 Ferrous Sulfate (Ferrous Sulfate (Ec)) 325 mg DAILY PO Last administered on 08/09/18 09:57; Admin Dose 325 MG; Start 08/03/18 at 09:00 Pantoprazole (Protonix Tab) 40 mg AC BREAKFAST PO Last administered on 08/09/18 07:54; Admin Dose 40 MG; Start 08/03/18 at 07:25 Sucralfate (Carafate) 1 gm AC MEALS AND BEDTIME PO Last administered on 08/09/18 11:38; Admin Dose 1 GM; Start 08/03/18 at 07:25 Albuterol (Proventil 0.083% (Neb)) 2.5 mg Q4H RESP THERAPY PRN NEB TRACHEOSTOMY Last administered on 08/08/18 15:37; Admin Dose 2.5 MG; Start 08/02/18 at 23:45 Multivitamins/ Minerals (Theragran-M) 1 tab DAILY PO Last administered on 08/09/18 09:57; Admin Dose 1 TAB; Start 08/03/18 at 09:00 Miscellaneous Information 1 ea NOTE XX ; Start 08/02/18 at 23:45 Glucose (Glutose) 15 gm Q15M PRN PO DECREASED GLUCOSE; Start 08/02/18 at 23:45 Glucose (Glutose) 22.5 gm Q15M PRN PO DECREASED GLUCOSE; Start 08/02/18 at 23:45 Dextrose (D50w Syringe) 25 ml Q15M PRN IV DECREASED GLUCOSE; Start 08/02/18 at 23:45 Dextrose (D50w Syringe) 50 ml Q15M PRN IV DECREASED GLUCOSE; Start 08/02/18 at 23:45 Glucagon (Glucagen) 1 mg Q15M PRN IM DECREASED GLUCOSE; Start 08/02/18 at 23:45 Glucose (Glutose) 15 gm Q15M PRN BUCCAL DECREASED GLUCOSE; Start 08/02/18 at 23:45 Simethicone (Mylicon) 80 mg Q8H PRN PO DISTENSION/GAS/BLOATING Last administered on 08/04/18 01:55; Admin Dose 80 MG; Start 08/03/18 at 04:30 Amlodipine Besylate (Norvasc) 5 mg DAILY PO Last administered on 08/09/18 09:57; Admin Dose 5 MG; Start 08/03/18 at 09:00 Fluconazole (Diflucan) 100 mg DAILY PO Last administered on 08/09/18 09:57; Admin Dose 100 MG; Start 08/03/18 at 09:00 Linezolid (Zyvox) 600 mg BID PO Last administered on 08/09/18 09:57; Admin Dose 600 MG; Start 08/03/18 at 09:00 Amikacin Sulfate (Amikacin Iv Per Pharmacy) AMIKACIN PER PHARMACY NOTE XX ; Start 08/03/18 at 11:30 Insulin Aspart (Novolog Insulin Pen) NOVOLOG *MILD* ALGORI... AC MEALS AND BEDTIME SC Last administered on 08/08/18 11:55; Admin Dose 2 UNIT; Start 08/03/18 at 17:25 Linagliptin (Tradjenta) 5 mg DAILY PO Last administered on 08/09/18 09:57; Admin Dose 5 MG; Start 08/04/18 at 09:00 Diagnostic Test (Pha) (Accu-Chek) 1 ea 02 XX Last administered on 08/05/18 01:28; Admin Dose 1 EA; Start 08/04/18 at 02:00 Insulin Aspart (Novolog Insulin Pen) 10 unit WITH MEALS SC Last administered on 08/09/18 11:46; Admin Dose 10 UNIT; Start 08/03/18 at 17:55 Acetylcysteine (Mucomyst) 2 ml Q8H RESP THERAPY NEB Last administered on 08/09/18 08:07; Admin Dose 2 ML; Start 08/04/18 at 08:00 Collagenase (Santyl) 1 applic DAILY TOP Last administered on 08/09/18 10:04; Admin Dose 1 APPLIC; Start 08/04/18 at 09:00 Amikacin Sulfate 500 mg/Sodium Chloride 102 ml @ 101.6 mls/ hr Q48H IVPB Last administered on 08/07/18 20:56; Admin Dose 101.6 MLS/HR; Start 08/05/18 at 20:00 Diphenhydramine HCl (Benadryl) 25 mg Q6H PRN IV rash or itching; Start 08/05/18 at 11:00 Metoprolol Tartrate (Lopressor) 25 mg BID PO Last administered on 08/09/18 09:58; Admin Dose 25 MG; Start 08/06/18 at 13:30 Insulin Glargine (Lantus) 18 units DAILY@2000 SC Last administered on 08/08/18at 20:53; Admin Dose 18 UNITS; Start 08/07/18 at 20:00 Nystatin (Nystatin Powder) 1 applic BID TOP Last administered on 08/09/18at 10:04; Admin Dose 1 APPLIC; Start 08/08/18 at 12:30 Enoxaparin Sodium (Lovenox) 30 mg Q24H SC Last administered on 08/09/18 11:42; Admin Dose 30 MG; Start 08/08/18 at 12:30 Enoxaparin Sodium (Lovenox) 80 mg Q24H SC Last administered on 08/09/18at 11:41; Admin Dose 80 MG; Start 08/08/18 at 12:30 Furosemide (Lasix) 40 mg BID IV Last administered on 08/09/18 09:57; Admin Dose 40 MG; Start 08/09/18 at 09:00 Miscellaneous Information (*Rx Drug Level Order Reminder*) AMIKACIN TROUGH @ 1,900 1900 ONCE XX ; Start 08/09/18 at 19:00; Stop 08/09/18 at 19:01 Miscellaneous Information (*Rx Drug Level Order Reminder*) AMIKACIN PEAK 08/09 @ 2,130 2130 ONCE XX ; Start 08/09/18 at 21:30; Stop 08/09/18 at 21:31 JUANIS FINN NP Aug 09, 2018 15:24
--- NOTE | 2018-08-09 17:42 | CONS ---
Assessment/Plan Assessment/Plan Assessment/Plan (Daily) Respiratory failure Pleural effusion Paroxysmal atrial fibrillation Hypertension Recurrent anemia, currently off anticoagulation Preserved ejection fraction Moderate pulmonary hypertension - -Telemetry with sinus rhythm with frequent PVCs and PACs, would restart beta- hitesh -contineu pulm care Consultation Date/Type/Reason Admit Date/Time Aug 02, 2018 at 22:00 Initial Consult Date 08/03/18 Type of Consult Cardiology Requesting Provider: DEJUAN ORTIZ MD, [facility] Date/Time of Note DATE: 08/09/18 TIME: 17:42 24 HR Interval Summary Free Text/Dictation The aptienbt with no cahgne Exam/Review of Systems Vital Signs Vitals Vital Signs Date Temp Pulse Resp B/P (MAP) Pulse Ox O2 O2 Flow FiO2 Time Delivery Rate 08/09/18 68 18 100 30 17:15 08/09/18 96.0 144/66 Mechanical 16:00 (92) Ventilator Trach Collar Intake and Output 08/08/18 08/08/18 08/09/18 1414:59 22:59 06:59 IntakeIntake Total 600 ml 300 ml OutputOutput Total 240 ml 500 ml BalanceBalance 360 ml -200 ml Labs Result Diagram: 08/09/18 0740 08/09/18 0740 Results 24hrs Laboratory Tests Test 08/08/18 20:50 08/09/18 07:40 08/09/18 07:56 08/09/18 11:42 Bedside Glucose 133 102 104 White Blood Count 10.1 Red Blood Count 3.28 L Hemoglobin 8.2 L Hematocrit 27.0 L Mean Corpuscular 82.3 Volume Mean Corpuscular 25.0 L Hemoglobin Mean Corpuscular 30.4 L Hemoglobin Concent Red Cell 18.1 H Distribution Width Platelet Count 167 Mean Platelet Volume 9.4 Immature 1.100 H Granulocytes % Neutrophils % 72.5 Lymphocytes % 12.6 L Monocytes % 10.7 Eosinophils % 2.5 Basophils % 0.6 Nucleated Red Blood 0.0 Cells % Immature 0.110 H Granulocytes # Neutrophils # 7.3 Lymphocytes # 1.3 Monocytes # 1.1 H Eosinophils # 0.3 Basophils # 0.1 Nucleated Red Blood 0.0 Cells # Sodium Level 138 Potassium Level 4.3 Chloride Level 107 Carbon Dioxide Level 24 Anion Gap 7 Blood Urea Nitrogen 27 H Creatinine 2.05 H Est Glomerular 32 L Filtrat Rate mL/min Glucose Level 94 Calcium Level 8.3 L Phosphorus Level 4.9 Magnesium Level 2.1 Test 08/09/18 17:22 Bedside Glucose 83 Medications Medications Current Medications IV Flush (NS 3 ml) 3 ml PER PROTOCOL IV ; Start 08/03/18 at 00:00 Ondansetron HCl (Zofran Inj) 4 mg Q6H PRN IV NAUSEA/VOMITING Last administered on 08/03/18 03:48; Admin Dose 4 MG; Start 08/03/18 at 00:00 Nitroglycerin (Nitroglycerin (Sl Tab) 0.4 Mg) 1 tab Q5M PRN SL .CHEST PAIN; Start 08/03/18 at 00:00 Acetaminophen (Tylenol Tab) 650 mg Q6H PRN PO .PAIN 1-3 OR TEMP Last administered on 08/04/18 03:49; Admin Dose 650 MG; Start 08/03/18 at 00:00 Morphine Sulfate (morphine) 2 mg Q4H PRN IV .PAIN 7-10 Last administered on 08/09/18 09:58; Admin Dose 2 MG; Start 08/03/18 at 00:00 Docusate Sodium (Colace) 100 mg Q12H PRN PO .CONSTIPATION; Start 08/03/18 at 00:00 Bisacodyl (Dulcolax) 5 mg DAILY PRN PO .CONSTIPATION; Start 08/03/18 at 00:00 Ascorbic Acid (Vitamin C) 500 mg DAILY PO Last administered on 08/09/18 09:58; Admin Dose 500 MG; Start 08/03/18 at 09:00 Chlorhexidine Gluconate (Peridex) 15 ml Q12H MM Last administered on 08/09/18 11:38; Admin Dose 15 ML; Start 08/03/18 at 00:00 Digoxin (Digoxin) 0.25 mg DAILY PO Last administered on 08/09/18 10:03; Admin Dose 0.25 MG; Start 08/03/18 at 09:00 Ferrous Sulfate (Ferrous Sulfate (Ec)) 325 mg DAILY PO Last administered on 08/09/18 09:57; Admin Dose 325 MG; Start 08/03/18 at 09:00 Pantoprazole (Protonix Tab) 40 mg AC BREAKFAST PO Last administered on 08/09/18 07:54; Admin Dose 40 MG; Start 08/03/18 at 07:25 Sucralfate (Carafate) 1 gm AC MEALS AND BEDTIME PO Last administered on 08/09/18 17:21; Admin Dose 1 GM; Start 08/03/18 at 07:25 Albuterol (Proventil 0.083% (Neb)) 2.5 mg Q4H RESP THERAPY PRN NEB TRACHEOSTOMY Last administered on 08/08/18 15:37; Admin Dose 2.5 MG; Start 08/02/18 at 23:45 Multivitamins/ Minerals (Theragran-M) 1 tab DAILY PO Last administered on 08/09/18 09:57; Admin Dose 1 TAB; Start 08/03/18 at 09:00 Miscellaneous Information 1 ea NOTE XX ; Start 08/02/18 at 23:45 Glucose (Glutose) 15 gm Q15M PRN PO DECREASED GLUCOSE; Start 08/02/18 at 23:45 Glucose (Glutose) 22.5 gm Q15M PRN PO DECREASED GLUCOSE; Start 08/02/18 at 23:45 Dextrose (D50w Syringe) 25 ml Q15M PRN IV DECREASED GLUCOSE; Start 08/02/18 at 23:45 Dextrose (D50w Syringe) 50 ml Q15M PRN IV DECREASED GLUCOSE; Start 08/02/18 at 23:45 Glucagon (Glucagen) 1 mg Q15M PRN IM DECREASED GLUCOSE; Start 08/02/18 at 23:45 Glucose (Glutose) 15 gm Q15M PRN BUCCAL DECREASED GLUCOSE; Start 08/02/18 at 23:45 Simethicone (Mylicon) 80 mg Q8H PRN PO DISTENSION/GAS/BLOATING Last administered on 08/04/18at 01:55; Admin Dose 80 MG; Start 08/03/18 at 04:30 Amlodipine Besylate (Norvasc) 5 mg DAILY PO Last administered on 08/09/18 09:57; Admin Dose 5 MG; Start 08/03/18 at 09:00 Fluconazole (Diflucan) 100 mg DAILY PO Last administered on 08/09/18 09:57; Admin Dose 100 MG; Start 08/03/18 at 09:00 Linezolid (Zyvox) 600 mg BID PO Last administered on 08/09/18 09:57; Admin Dose 600 MG; Start 08/03/18 at 09:00 Amikacin Sulfate (Amikacin Iv Per Pharmacy) AMIKACIN PER PHARMACY NOTE XX ; Start 08/03/18 at 11:30 Insulin Aspart (Novolog Insulin Pen) NOVOLOG *MILD* ALGORI... AC MEALS AND BEDTIME SC Last administered on 08/08/18 11:55; Admin Dose 2 UNIT; Start 08/03/18 at 17:25 Linagliptin (Tradjenta) 5 mg DAILY PO Last administered on 08/09/18 09:57; Admin Dose 5 MG; Start 08/04/18 at 09:00 Diagnostic Test (Pha) (Accu-Chek) 1 ea 02 XX Last administered on 08/05/18 01:28; Admin Dose 1 EA; Start 08/04/18 at 02:00 Insulin Aspart (Novolog Insulin Pen) 10 unit WITH MEALS SC Last administered on 08/09/18 17:38; Admin Dose 10 UNIT; Start 08/03/18 at 17:55 Acetylcysteine (Mucomyst) 2 ml Q8H RESP THERAPY NEB Last administered on 08/09/18 08:07; Admin Dose 2 ML; Start 08/04/18 at 08:00 Collagenase (Santyl) 1 applic DAILY TOP Last administered on 08/09/18 10:04; Admin Dose 1 APPLIC; Start 08/04/18 at 09:00 Amikacin Sulfate 500 mg/Sodium Chloride 102 ml @ 101.6 mls/ hr Q48H IVPB Last administered on 08/07/18 20:56; Admin Dose 101.6 MLS/HR; Start 08/05/18 at 20:00 Diphenhydramine HCl (Benadryl) 25 mg Q6H PRN IV rash or itching; Start 08/05/18 at 11:00 Metoprolol Tartrate (Lopressor) 25 mg BID PO Last administered on 08/09/18 09:58; Admin Dose 25 MG; Start 08/06/18 at 13:30 Insulin Glargine (Lantus) 18 units DAILY@2000 SC Last administered on 08/08/18 20:53; Admin Dose 18 UNITS; Start 08/07/18 at 20:00 Nystatin (Nystatin Powder) 1 applic BID TOP Last administered on 08/09/18 10:0 4; Admin Dose 1 APPLIC; Start 08/08/18 at 12:30 Enoxaparin Sodium (Lovenox) 30 mg Q24H SC Last administered on 08/09/18at 11:42; Admin Dose 30 MG; Start 08/08/18 at 12:30 Enoxaparin Sodium (Lovenox) 80 mg Q24H SC Last administered on 08/09/18at 11:41; Admin Dose 80 MG; Start 08/08/18 at 12:30 Furosemide (Lasix) 40 mg BID IV Last administered on 08/09/18at 09:57; Admin Dose 40 MG; Start 08/09/18 at 09:00 Miscellaneous Information (*Rx Drug Level Order Reminder*) AMIKACIN TROUGH @ 1,900 1900 ONCE XX ; Start 08/09/18 at 19:00; Stop 08/09/18 at 19:01 Miscellaneous Information (*Rx Drug Level Order Reminder*) AMIKACIN PEAK 08/09 @ 2,130 2130 ONCE XX ; Start 08/09/18 at 21:30; Stop 08/09/18 at 21:31 MARICRUZ COSTA MD Aug 09, 2018 17:42
[2018-08-09] MEDS: AMIKACIN 500 MG in SOD CHLORIDE 0.9% 100 ML IVPB SCH (20:13)
[2018-08-09] MEDS: INSULIN GLARGINE [LANTus] (100 UNITS/ML) SYG SC SCH (20:26)
[2018-08-10] VITALS (19 sets, daily range): BP systolic 121–156; BP diastolic 65–74; PULSE 63–81; RESP 14–22
[2018-08-10] MEDS: ACETYLCYSTEINE 20% 4 ML VIAL NEB SCH ×3 (00:55→15:22)
[2018-08-10] MEDS: ACCU-CHEK XX SCH (01:02)
[2018-08-10] MEDS: INSULIN ASPART [NOVOLOG] 3 ML PEN SC SCH ×7 (07:25→21:00)
--- NOTE | 2018-08-10 07:38 | CONS ---
Assessment/Plan Assessment/Plan Assessment/Plan (Daily) Assessment Respiratory failure Pleural effusion Paroxysmal atrial fibrillation Hypertension Recurrent anemia, currently off anticoagulation Preserved ejection fraction Moderate pulmonary hypertension Plan: 1) adjust lovenox orders, currently two distinct lovenox orders are in system, also adjust to renal dose 2) check Digoxin level, reduce to 0.125 daily for now 3) diuresis Consultation Date/Type/Reason Admit Date/Time Aug 02, 2018 at 22:00 Initial Consult Date 08/03/18 Type of Consult Cardiology Requesting Provider: DEJUAN ORTIZ MD, [facility] Date/Time of Note DATE: 08/10/18 TIME: 07:36 24 HR Interval Summary Free Text/Dictation resting, CT in situ, no sob Detailed Summary Respiratory: no complaints Cardiovascular: no complaints Gastrointestinal: no complaints Musculoskeletal: no complaints Skin: no complaints Neurologic: no complaints Exam/Review of Systems Vital Signs Vitals Vital Signs Date Temp Pulse Resp B/P (MAP) Pulse Ox O2 O2 Flow FiO2 Time Delivery Rate 08/10/18 98.4 75 16 139/65 97 Trach 07:10 (89) Collar 08/10/18 30 05:20 Intake and Output 08/09/18 08/09/18 08/10/18 1515:00 23:00 07:00 IntakeIntake Total 602 ml 300 ml OutputOutput Total 1400 ml BalanceBalance 602 ml -1100 ml Exam Head: normocephalic, atraumatic Neck: jvd Respiratory: diminished breath sounds Cardiovascular: regular rate and rhythm Gastrointestinal: soft Musculoskeletal: nl extremities to inspection Extremities: normal pulses Labs Result Diagram: 08/09/18 0740 08/09/18 0740 Results 24hrs Laboratory Tests Test 08/09/18 07:40 08/09/18 07:56 08/09/18 11:42 08/09/18 17:22 White Blood Count 10.1 Red Blood Count 3.28 L Hemoglobin 8.2 L Hematocrit 27.0 L Mean Corpuscular 82.3 Volume Mean Corpuscular 25.0 L Hemoglobin Mean Corpuscular 30.4 L Hemoglobin Concent Red Cell 18.1 H Distribution Width Platelet Count 167 Mean Platelet Volume 9.4 Immature 1.100 H Granulocytes % Neutrophils % 72.5 Lymphocytes % 12.6 L Monocytes % 10.7 Eosinophils % 2.5 Basophils % 0.6 Nucleated Red Blood 0.0 Cells % Immature 0.110 H Granulocytes # Neutrophils # 7.3 Lymphocytes # 1.3 Monocytes # 1.1 H Eosinophils # 0.3 Basophils # 0.1 Nucleated Red Blood 0.0 Cells # Sodium Level 138 Potassium Level 4.3 Chloride Level 107 Carbon Dioxide Level 24 Anion Gap 7 Blood Urea Nitrogen 27 H Creatinine 2.05 H Est Glomerular 32 L Filtrat Rate mL/min Glucose Level 94 Calcium Level 8.3 L Phosphorus Level 4.9 Magnesium Level 2.1 Bedside Glucose 102 104 83 Test 08/09/18 20:20 Bedside Glucose 152 Medications Medications Current Medications IV Flush (NS 3 ml) 3 ml PER PROTOCOL IV ; Start 08/03/18 at 00:00 Ondansetron HCl (Zofran Inj) 4 mg Q6H PRN IV NAUSEA/VOMITING Last administered on 08/03/18 03:48; Admin Dose 4 MG; Start 08/03/18 at 00:00 Nitroglycerin (Nitroglycerin (Sl Tab) 0.4 Mg) 1 tab Q5M PRN SL .CHEST PAIN; Start 08/03/18 at 00:00 Acetaminophen (Tylenol Tab) 650 mg Q6H PRN PO .PAIN 1-3 OR TEMP Last administered on 08/04/18 03:49; Admin Dose 650 MG; Start 08/03/18 at 00:00 Morphine Sulfate (morphine) 2 mg Q4H PRN IV .PAIN 7-10 Last administered on 08/09/18 09:58; Admin Dose 2 MG; Start 08/03/18 at 00:00 Docusate Sodium (Colace) 100 mg Q12H PRN PO .CONSTIPATION; Start 08/03/18 at 00:00 Bisacodyl (Dulcolax) 5 mg DAILY PRN PO .CONSTIPATION; Start 08/03/18 at 00:00 Ascorbic Acid (Vitamin C) 500 mg DAILY PO Last administered on 08/09/18 09:58; Admin Dose 500 MG; Start 08/03/18 at 09:00 Chlorhexidine Gluconate (Peridex) 15 ml Q12H MM Last administered on 08/09/18 11:38; Admin Dose 15 ML; Start 08/03/18 at 00:00 Digoxin (Digoxin) 0.25 mg DAILY PO Last administered on 08/09/18 10:03; Admin Dose 0.25 MG; Start 08/03/18 at 09:00 Ferrous Sulfate (Ferrous Sulfate (Ec)) 325 mg DAILY PO Last administered on 08/09/18 09:57; Admin Dose 325 MG; Start 08/03/18 at 09:00 Pantoprazole (Protonix Tab) 40 mg AC BREAKFAST PO Last administered on 08/09/18 07:54; Admin Dose 40 MG; Start 08/03/18 at 07:25 Sucralfate (Carafate) 1 gm AC MEALS AND BEDTIME PO Last administered on 08/09/18 20:15; Admin Dose 1 GM; Start 08/03/18 at 07:25 Albuterol (Proventil 0.083% (Neb)) 2.5 mg Q4H RESP THERAPY PRN NEB TRACHEOSTOMY Last administered on 08/08/18 15:37; Admin Dose 2.5 MG; Start 08/02/18 at 23:45 Multivitamins/ Minerals (Theragran-M) 1 tab DAILY PO Last administered on 08/09/18 09:57; Admin Dose 1 TAB; Start 08/03/18 at 09:00 Miscellaneous Information 1 ea NOTE XX ; Start 08/02/18 at 23:45 Glucose (Glutose) 15 gm Q15M PRN PO DECREASED GLUCOSE; Start 08/02/18 at 23:45 Glucose (Glutose) 22.5 gm Q15M PRN PO DECREASED GLUCOSE; Start 08/02/18 at 23:45 Dextrose (D50w Syringe) 25 ml Q15M PRN IV DECREASED GLUCOSE; Start 08/02/18 at 23:45 Dextrose (D50w Syringe) 50 ml Q15M PRN IV DECREASED GLUCOSE; Start 08/02/18 at 23:45 Glucagon (Glucagen) 1 mg Q15M PRN IM DECREASED GLUCOSE; Start 08/02/18 at 23:45 Glucose (Glutose) 15 gm Q15M PRN BUCCAL DECREASED GLUCOSE; Start 08/02/18 at 23:45 Simethicone (Mylicon) 80 mg Q8H PRN PO DISTENSION/GAS/BLOATING Last administered on 08/04/18 01:55; Admin Dose 80 MG; Start 08/03/18 at 04:30 Amlodipine Besylate (Norvasc) 5 mg DAILY PO Last administered on 08/09/18 09:57; Admin Dose 5 MG; Start 08/03/18 at 09:00 Fluconazole (Diflucan) 100 mg DAILY PO Last administered on 08/09/18 09:57; A dmin Dose 100 MG; Start 08/03/18 at 09:00 Linezolid (Zyvox) 600 mg BID PO Last administered on 08/09/18 20:14; Admin Dose 600 MG; Start 08/03/18 at 09:00 Amikacin Sulfate (Amikacin Iv Per Pharmacy) AMIKACIN PER PHARMACY NOTE XX ; Start 08/03/18 at 11:30 Insulin Aspart (Novolog Insulin Pen) NOVOLOG *MILD* ALGORI... AC MEALS AND BEDTIME SC Last administered on 08/08/18 11:55; Admin Dose 2 UNIT; Start 08/03/18 at 17:25 Linagliptin (Tradjenta) 5 mg DAILY PO Last administered on 08/09/18 09:57; Admin Dose 5 MG; Start 08/04/18 at 09:00 Diagnostic Test (Pha) (Accu-Chek) 1 ea 02 XX Last administered on 08/05/18 01:28; Admin Dose 1 EA; Start 08/04/18 at 02:00 Insulin Aspart (Novolog Insulin Pen) 10 unit WITH MEALS SC Last administered on 08/09/18 17:38; Admin Dose 10 UNIT; Start 08/03/18 at 17:55 Acetylcysteine (Mucomyst) 2 ml Q8H RESP THERAPY NEB Last administered on 08/09/18 08:07; Admin Dose 2 ML; Start 08/04/18 at 08:00 Collagenase (Santyl) 1 applic DAILY TOP Last administered on 08/09/18 10:04; Admin Dose 1 APPLIC; Start 08/04/18 at 09:00 Amikacin Sulfate 500 mg/Sodium Chloride 102 ml @ 101.6 mls/ hr Q48H IVPB Last administered on 08/09/18 20:13; Admin Dose 101.6 MLS/HR; Start 08/05/18 at 20:00 Diphenhydramine HCl (Benadryl) 25 mg Q6H PRN IV rash or itching; Start 08/05/18 at 11:00 Metoprolol Tartrate (Lopressor) 25 mg BID PO Last administered on 08/09/18 20: 15; Admin Dose 25 MG; Start 08/06/18 at 13:30 Insulin Glargine (Lantus) 18 units DAILY@2000 SC Last administered on 08/09/18 20:26; Admin Dose 18 UNITS; Start 08/07/18 at 20:00 Nystatin (Nystatin Powder) 1 applic BID TOP Last administered on 08/09/18 20:16; Admin Dose 1 APPLIC; Start 08/08/18 at 12:30 Enoxaparin Sodium (Lovenox) 30 mg Q24H SC Last administered on 08/09/18 11:42; Admin Dose 30 MG; Start 08/08/18 at 12:30 Enoxaparin Sodium (Lovenox) 80 mg Q24H SC Last administered on 08/09/18 11:41; Admin Dose 80 MG; Start 08/08/18 at 12:30 Furosemide (Lasix) 40 mg BID IV Last administered on 08/09/18 20:14; Admin Dose 40 MG; Start 08/09/18 at 09:00 AILYN RAO MD Aug 10, 2018 07:38
[2018-08-10] MEDS: FUROSEMIDE 40 MG INJ IV SCH ×2 (09:02→20:59)
[2018-08-10] MEDS: ASCORBIC ACID 500 MG TAB PO SCH (09:03)
[2018-08-10] MEDS: FLUCONAZOLE 100 MG TAB PO SCH (09:03)
[2018-08-10] MEDS: ZYVOX 600 MG TAB PO SCH ×2 (09:03→20:59)
[2018-08-10] MEDS: FERROUS SULFATE (EC) 325 MG TAB PO SCH (09:03)
[2018-08-10] MEDS: SUCRALFATE 1 GM TAB PO SCH ×4 (09:03→21:00)
[2018-08-10] MEDS: PANTOPRAZOLE (EC) 40 MG TAB PO SCH (09:03)
[2018-08-10] MEDS: MULTIVITAMINS/MINERALS TAB PO SCH (09:04)
[2018-08-10] MEDS: AMLODIPINE 5 MG TAB PO SCH (09:04)
[2018-08-10] MEDS: METOPROLOL 25 MG TAB PO SCH ×2 (09:05→21:00)
[2018-08-10] MEDS: COLLAGENASE 5 GM (UD JAR) TOP SCH (09:05)
[2018-08-10] MEDS: NYSTATIN 30 GM POWDER BTL TOP SCH ×2 (09:08→21:01)
[2018-08-10] MEDS: LINAGLIPTIN 5 MG TABLET PO SCH (09:10)
--- NOTE | 2018-08-10 09:34 | PN ---
DATE: 08/10/2018 SUBJECTIVE: The patient is stable. The patient has adequate urinary output. The patient continues to have drainage from his chest tubes. No other events noted. OBJECTIVE: VITAL SIGNS: Blood pressure is 139/65, respirations 16, pulse 75, temperature 98.4. HEENT: Head is normocephalic. NECK: Supple. HEART: Regular rate. LUNGS: Show diminished breath sounds at base, right greater than left. ABDOMEN: Soft, nontender to palpation without rebound or guarding. EXTREMITIES: Negative for clubbing, cyanosis. Positive edema, diffuse anasarca. DERMATOLOGIC: No rashes. MUSCULOSKELETAL: No joint effusion. NEUROLOGIC: No change in exam. MEDICATIONS: Reviewed. LABORATORY DATA: From 08/09/2018, was reviewed. Laboratory data from 08/10/2018 is pending. ASSESSMENT AND PLAN: 1. Chronic kidney disease with baseline creatinine between 2.2 to 2.3 mg/dL. The patient's renal fu nction is currently at baseline. Continue to monitor. Continue disease factor modification. 2. Volume overload. Etiology is multifactorial secondary to acute diastolic heart failure and cirrh osis. Continue current diuretic regimen. Monitor renal function and electrolytes closely. 3. Mineral bone disorder. Monitor calcium and phosphorus levels. 4. Anemia. Monitor hemoglobin and hematocrit levels. 5. Ventilatory-dependent respiratory failure. Vent settings and ABG was reviewed. Continue to [facility]. 6. Right lung opacification. The patient is status post pigtail placement. Continue to monitor. F ollow up with CT surgery. 7. Paroxysmal atrial fibrillation. Continue medical management. 8. Diabetes. Continue current insulin regimen. 9. Sepsis. The patient is completing antibiotic course. 10. Cirrhosis. Continue medical management. Dictated By: LORY KAY DO NR/NTS Conf#: [id number] DID#: [id number] CC: VARSHA PEARSON MD;*EndCC*
--- NOTE | 2018-08-10 10:54 | CONS ---
Assessment/Plan Assessment/Plan Assessment/Plan (Daily) Assessment and recommendations; next 1. Patient with history of VDRF admitted for severe right-sided pneumonia status post right pleural catheter placement without any interval improvement in chest x-ray dense consolidation and possibly underlying empyema. Patient scheduled for VATS. 2. History of chronic renal insufficiency. Continue current supportive care. Consultation Date/Type/Reason Admit Date/Time Aug 02, 2018 at 22:00 Initial Consult Date 08/03/18 Type of Consult Pulmonary Requesting Provider: DEJUAN ORTIZ MD, [facility] Date/Time of Note DATE: 08/10/18 TIME: 10:52 24 HR Interval Summary Free Text/Dictation Patient's condition is stable. Has remained hemodynamically stable. Denies any shortness of breath, chest pain. General exam; elderly male, on ventilator via tracheostomy, awake and alert. Currently in no distress. Exam/Review of Systems Exam Vitals Vital Signs Date Temp Pulse Resp B/P (MAP) Pulse Ox O2 O2 Flow FiO2 Time Delivery Rate 08/10/18 78 14 100 30 09:05 08/10/18 98.4 139/65 Trach 07:10 (89) Collar Intake and Output 08/09/18 08/09/18 08/10/18 1414:59 22:59 06:59 IntakeIntake Total 602 ml 300 ml OutputOutput Total 1400 ml BalanceBalance 602 ml -1100 ml Exam H EENT exam; supple neck, no JVD. No lymphadenopathy. Midline trachea. No thyromegaly. Patient is edentulous. Tracheostomy in place. No neck masses. Chest exam; diminished breath sounds right lung. Left lung is clear. S1-S2 audible, no murmurs. Regular rhythm. Abdomen exam; soft. No organomegaly. Bowel sounds audible. Extremity exam; no peripheral edema clubbing. [employer] exam; no focal deficit. Results Result Diagram: 08/10/18 0759 08/10/18 0759 Results 24hrs Laboratory Tests Test 08/09/18 11:42 08/09/18 17:22 08/09/18 19:23 08/09/18 20:20 Bedside Glucose 104 83 152 Amikacin Level 3.5 L Trough Test 08/10/18 07:59 08/10/18 08:04 08/10/18 09:13 08/10/18 09:52 White Blood 8.9 Count Red Blood Count 3.18 L Hemoglobin 8.0 L Hematocrit 26.2 L Mean Corpuscular 82.4 Volume Mean Corpuscular 25.2 L Hemoglobin Mean Corpuscular 30.5 L Hemoglobin Dorene nt Red Cell 18.1 H Distribution Width Platelet Count 156 Mean Platelet 9.3 Volume Immature 0.800 H Granulocytes % Neutrophils % 71.8 Lymphocytes % 13.2 L Monocytes % 10.8 Eosinophils % 2.8 Basophils % 0.6 Nucleated Red 0.0 Blood Cells % Immature 0.070 H Granulocytes # Neutrophils # 6.4 Lymphocytes # 1.2 Monocytes # 1.0 H Eosinophils # 0.3 Basophils # 0.1 Nucleated Red 0.0 Blood Cells # Sodium Level 139 Potassium Level 4.3 Chloride Level 106 Carbon Dioxide 28 Level Anion Gap 5 Blood Urea 26 H Nitrogen Creatinine 2.08 H Est Glomerular 32 L Filtrat Rate mL/min Glucose Level 71 Calcium Level 8.4 Phosphorus Level 5.0 H Magnesium Level 2.0 Digoxin Level 1.7 Bedside Glucose 78 129 Lab Scanned REFERENCE LAB Report Test 08/10/18 10:44 Lab Scanned REFERENCE LAB Report Medications Medication Current Medications IV Flush (NS 3 ml) 3 ml PER PROTOCOL IV ; Start 08/03/18 at 00:00 Ondansetron HCl (Zofran Inj) 4 mg Q6H PRN IV NAUSEA/VOMITING Last administered on 08/03/18at 03:48; Admin Dose 4 MG; Start 08/03/18 at 00:00 Nitroglycerin (Nitroglycerin (Sl Tab) 0.4 Mg) 1 tab Q5M PRN SL .CHEST PAIN; Start 08/03/18 at 00:00 Acetaminophen (Tylenol Tab) 650 mg Q6H PRN PO .PAIN 1-3 OR TEMP Last administered on 08/04/18at 03:49; Admin Dose 650 MG; Start 08/03/18 at 00:00 Morphine Sulfate (morphine) 2 mg Q4H PRN IV .PAIN 7-10 Last administered on 08/09/18at 09:58; Admin Dose 2 MG; Start 08/03/18 at 00:00 Docusate Sodium (Colace) 100 mg Q12H PRN PO .CONSTIPATION; Start 08/03/18 at 00:00 Bisacodyl (Dulcolax) 5 mg DAILY PRN PO .CONSTIPATION; Start 08/03/18 at 00:00 Ascorbic Acid (Vitamin C) 500 mg DAILY PO Last administered on 08/10/18 09:03; Admin Dose 500 MG; Start 08/03/18 at 09:00 Chlorhexidine Gluconate (Peridex) 15 ml Q12H MM Last administered on 08/09/18 11:38; Admin Dose 15 ML; Start 08/03/18 at 00:00 Ferrous Sulfate (Ferrous Sulfate (Ec)) 325 mg DAILY PO Last administered on 08/10/18 09:03; Admin Dose 325 MG; Start 08/03/18 at 09:00 Pantoprazole (Protonix Tab) 40 mg AC BREAKFAST PO Last administered on 08/10/18 09:03; Admin Dose 40 MG; Start 08/03/18 at 07:25 Sucralfate (Carafate) 1 gm AC MEALS AND BEDTIME PO Last administered on 08/10/18 09:03; Admin Dose 1 GM; Start 08/03/18 at 07:25 Albuterol (Proventil 0.083% (Neb)) 2.5 mg Q4H RESP THERAPY PRN NEB TRACHEOSTOMY Last administered on 08/08/18 15:37; Admin Dose 2.5 MG; Start 08/02/18 at 23:45 Multivitamins/ Minerals (Theragran-M) 1 tab DAILY PO Last administered on 08/10/18 09:04; Admin Dose 1 TAB; Start 08/03/18 at 09:00 Miscellaneous Information 1 ea NOTE XX ; Start 08/02/18 at 23:45 Glucose (Glutose) 15 gm Q15M PRN PO DECREASED GLUCOSE; Start 08/02/18 at 23:45 Glucose (Glutose) 22.5 gm Q15M PRN PO DECREASED GLUCOSE; Start 08/02/18 at 23:45 Dextrose (D50w Syringe) 25 ml Q15M PRN IV DECREASED GLUCOSE; Start 08/02/18 at 23:45 Dextrose (D50w Syringe) 50 ml Q15M PRN IV DECREASED GLUCOSE; Start 08/02/18 at 23:45 Glucagon (Glucagen) 1 mg Q15M PRN IM DECREASED GLUCOSE; Start 08/02/18 at 23:45 Glucose (Glutose) 15 gm Q15M PRN BUCCAL DECREASED GLUCOSE; Start 08/02/18 at 23:45 Simethicone (Mylicon) 80 mg Q8H PRN PO DISTENSION/GAS/BLOATING Last a dministered on 08/04/18 01:55; Admin Dose 80 MG; Start 08/03/18 at 04:30 Amlodipine Besylate (Norvasc) 5 mg DAILY PO Last administered on 08/10/18 09:04; Admin Dose 5 MG; Start 08/03/18 at 09:00 Fluconazole (Diflucan) 100 mg DAILY PO Last administered on 08/10/18 09:03; Admin Dose 100 MG; Start 08/03/18 at 09:00 Linezolid (Zyvox) 600 mg BID PO Last administered on 08/10/18 09:03; Admin Dose 600 MG; Start 08/03/18 at 09:00 Amikacin Sulfate (Amikacin Iv Per Pharmacy) AMIKACIN PER PHARMACY NOTE XX ; Start 08/03/18 at 11:30 Insulin Aspart (Novolog Insulin Pen) NOVOLOG *MILD* ALGORI... AC MEALS AND BEDTIME SC Last administered on 08/08/18 11:55; Admin Dose 2 UNIT; Start 08/03/18 at 17:25 Linagliptin (Tradjenta) 5 mg DAILY PO Last administered on 08/10/18 09:10; Admin Dose 5 MG; Start 08/04/18 at 09:00 Diagnostic Test (Pha) (Accu-Chek) 1 ea 02 XX Last administered on 08/05/18 01: 28; Admin Dose 1 EA; Start 08/04/18 at 02:00 Insulin Aspart (Novolog Insulin Pen) 10 unit WITH MEALS SC Last administered on 08/10/18 10:39; Admin Dose 10 UNIT; Start 08/03/18 at 17:55 Acetylcysteine (Mucomyst) 2 ml Q8H RESP THERAPY NEB Last administered on 08/10/18 09:56; Admin Dose 2 ML; Start 08/04/18 at 08:00 Collagenase (Santyl) 1 applic DAILY TOP Last administered on 08/10/18 09:05; Admin Dose 1 APPLIC; Start 08/04/18 at 09:00 Amikacin Sulfate 500 mg/Sodium Chloride 102 ml @ 101.6 mls/ hr Q48H IVPB Last administered on 08/09/18 20:13; Admin Dose 101.6 MLS/HR; Start 08/05/18 at 20:00 Diphenhydramine HCl (Benadryl) 25 mg Q6H PRN IV rash or itching; Start 08/05/18 at 11:00 Metoprolol Tartrate (Lopressor) 25 mg BID PO Last administered on 08/10/18 09:05; Admin Dose 25 MG; Start 08/06/18 at 13:30 Insulin Glargine (Lantus) 18 units DAILY@2000 SC Last administered on 08/09/18 20:26; Admin Dose 18 UNITS; Start 08/07/18 at 20:00 Nystatin (Nystatin Powder) 1 applic BID TOP Last administered on 08/10/18 09:08; Admin Dose 1 APPLIC; Start 08/08/18 at 12:30 Enoxaparin Sodium (Lovenox) 30 mg Q24H SC Last administered on 08/09/18 11:42; Admin Dose 30 MG; Start 08/08/18 at 12:30 Enoxaparin Sodium (Lovenox) 80 mg Q24H SC Last administered on 08/09/18 11:41; Admin Dose 80 MG; Start 08/08/18 at 12:30 Furosemide (Lasix) 40 mg BID IV Last administered on 08/10/18 09:02; Admin Dose 40 MG; Start 08/09/18 at 09:00 Digoxin (Digoxin) 0.125 mg DAILY@13 PO ; Start 08/10/18 at 13:00 WARREN HOLLIS Aug 10, 2018 10:54
--- NOTE | 2018-08-10 11:08 | PN ---
Date/Time of Note Date/Time of Note DATE: 08/10/18 TIME: 11:06 Assessment/Plan VTE Prophylaxis Risk score (from Ns)>0 risk: 7 SCD applied (from Ns): No SCD contraindicated: other Pharmacological prophylaxis: LMWH Lines/Catheters IV Catheter Type (from [facility]): Mid Line Urinary Cath still in place: No Assessment/Plan Hospital Course S: Per nursing staff patient having some bleeding from chest tube site, seen by cardiology team this morning. Still with occasional PVCs. O: VS- see below PE: General: Obese man lying in bed, trach HEENT: Atraumatic, normocephalic. Neck: trach to vent Lungs: Mechanical, some coarse breath sounds throughout, chest tubes in place Heart: Normal S1-S2, Regular rhythm and rate. No murmur, S3, or S4 Abdomen: Soft , obese, nontender, nondistended , bowel sounds are present. Extremities: 1+ bilateral lower extremity edema Neurologic: awake, alert. Able to talk with deflated cuff. Skin: Raised, erythematous macular rash across abdomen Assessment/Plan: 68-year-old man with a past medical history of chronic respiratory failure status post trach, who was transferred from [facility] to [facility] for evaluation of loculated empyema ad possible VATS. The patient was a previous resident of [facility], was noted to have a loculated fluid effusion. The patient, after attempted bronchoscopy and post chest-tube without improvement of loculated fluid was subsequently transferred to [facility] for surgical evaluation. #1 acute on chronic hypoxemic and hypercarbic respiratory failure-Patient is on chronic ventilatory support. -Continue vent management as per pulmonary, antibiotics as ordered by ID team #2 Right pulmonary opacification plus infiltrates-Suspicion likely for large loculated thick pleural effusion, loculated empyema s/p failed bronchoscopy and chest tube prior to admission, but again did receive pigtail catheter x2 3 days ago with purulent/pus drainage -Continue broad-spectrum antibiotics of Zyvox, fluconazole, as well as amikacin. ID consulted -CT surgery has been consulted by pulmonary medicine -Per discussion with them despite pigtail catheter placement, patient likely will still need VATS for decortication procedure given chest x-ray findings, the surgical procedure scheduled to be on the next 24 hours. #3 Paroxysmal atrial fibrillation-Currently in sinus rhythm. - Continue to monitor. - Xarelto on hold at the current time, was switched to Lovenox earlier this admission, holding now given the bleeding seen from the chest tube site this morning and also in anticipation of likely surgical procedure in the next 24 hours. #4 anemia of chronic disease: Patient received PRBC transfusion 6 days ago, hemoglobin today 8.0 -Monitor, transfuse for Hgb<7 or for symptomatic anemia #5 Chronic kidney disease stage III r/o FROILAN: Creatinine appears to be at baseline in the low 2 range -nephro consulted, f/u trend and recommendations #6 diabetes mellitus: A1c was 8.6, sugars are stable -Monitor sugars #7 diastolic CHF - chronic with bilateral lower extremity edema-may also be related to anasarca from #8 -Monitor for now #8 Hepatic cirrhosis-Chest CT shows possible liver cirrhosis confirmed on USS. -Monitor, f/u hepatitis serologies. #9 DVT GI prophylaxis: lovenox, Protonix Result Diagram: 08/10/18 0759 08/10/18 0759 Results 24hrs Laboratory Tests Test 08/09/18 11:42 08/09/18 17:22 08/09/18 19:23 08/09/18 20:20 Bedside Glucose 104 83 152 Amikacin Level 3.5 L Trough Test 08/10/18 07:59 08/10/18 08:04 08/10/18 09:13 08/10/18 09:52 White Blood 8.9 Count Red Blood Count 3.18 L Hemoglobin 8.0 L Hematocrit 26.2 L Mean Corpuscular 82.4 Volume Mean Corpuscular 25.2 L Hemoglobin Mean Corpuscular 30.5 L Hemoglobin Dorene nt Red Cell 18.1 H Distribution Width Platelet Count 156 Mean Platelet 9.3 Volume Immature 0.800 H Granulocytes % Neutrophils % 71.8 Lymphocytes % 13.2 L Monocytes % 10.8 Eosinophils % 2.8 Basophils % 0.6 Nucleated Red 0.0 Blood Cells % Immature 0.070 H Granulocytes # Neutrophils # 6.4 Lymphocytes # 1.2 Monocytes # 1.0 H Eosinophils # 0.3 Basophils # 0.1 Nucleated Red 0.0 Blood Cells # Sodium Level 139 Potassium Level 4.3 Chloride Level 106 Carbon Dioxide 28 Level Anion Gap 5 Blood Urea 26 H Nitrogen Creatinine 2.08 H Est Glomerular 32 L Filtrat Rate mL/min Glucose Level 71 Calcium Level 8.4 Phosphorus Level 5.0 H Magnesium Level 2.0 Digoxin Level 1.7 Bedside Glucose 78 129 Lab Scanned REFERENCE LAB Report Test 08/10/18 10:44 Lab Scanned REFERENCE LAB Report Exam/Review of Systems Exam Vitals Vital Signs Date Temp Pulse Resp B/P (MAP) Pulse Ox O2 O2 Flow FiO2 Time Delivery Rate 08/10/18 78 14 100 30 09:05 08/10/18 98.4 139/65 Trach 07:10 (89) Collar Intake and Output 08/09/18 08/09/18 08/10/18 1414:59 22:59 06:59 IntakeIntake Total 602 ml 300 ml OutputOutput Total 1400 ml BalanceBalance 602 ml -1100 ml Results Results 24hrs Laboratory Tests Test 08/09/18 11:42 08/09/18 17:22 08/09/18 19:23 08/09/18 20:20 Bedside Glucose 104 83 152 Amikacin Level 3.5 L Trough Test 08/10/18 07:59 08/10/18 08:04 08/10/18 09:13 08/10/18 09:52 White Blood 8.9 Count Red Blood Count 3.18 L Hemoglobin 8.0 L Hematocrit 26.2 L Mean Corpuscular 82.4 Volume Mean Corpuscular 25.2 L Hemoglobin Mean Corpuscular 30.5 L Hemoglobin Dorene nt Red Cell 18.1 H Distribution Width Platelet Count 156 Mean Platelet 9.3 Volume Immature 0.800 H Granulocytes % Neutrophils % 71.8 Lymphocytes % 13.2 L Monocytes % 10.8 Eosinophils % 2.8 Basophils % 0.6 Nucleated Red 0.0 Blood Cells % Immature 0.070 H Granulocytes # Neutrophils # 6.4 Lymphocytes # 1.2 Monocytes # 1.0 H Eosinophils # 0.3 Basophils # 0.1 Nucleated Red 0.0 Blood Cells # Sodium Level 139 Potassium Level 4.3 Chloride Level 106 Carbon Dioxide 28 Level Anion Gap 5 Blood Urea 26 H Nitrogen Creatinine 2.08 H Est Glomerular 32 L Filtrat Rate mL/min Glucose Level 71 Calcium Level 8.4 Phosphorus Level 5.0 H Magnesium Level 2.0 Digoxin Level 1.7 Bedside Glucose 78 129 Lab Scanned REFERENCE LAB Report Test 08/10/18 10:44 Lab Scanned REFERENCE LAB Report Medications Medication Current Medications IV Flush (NS 3 ml) 3 ml PER PROTOCOL IV ; Start 08/03/18 at 00:00 Ondansetron HCl (Zofran Inj) 4 mg Q6H PRN IV NAUSEA/VOMITING Last administered on 08/03/18 03:48; Admin Dose 4 MG; Start 08/03/18 at 00:00 Nitroglycerin (Nitroglycerin (Sl Tab) 0.4 Mg) 1 tab Q5M PRN SL .CHEST PAIN; Start 08/03/18 at 00:00 Acetaminophen (Tylenol Tab) 650 mg Q6H PRN PO .PAIN 1-3 OR TEMP Last administered on 08/04/18 03:49; Admin Dose 650 MG; Start 08/03/18 at 00:00 Morphine Sulfate (morphine) 2 mg Q4H PRN IV .PAIN 7-10 Last administered on 08/09/18 09:58; Admin Dose 2 MG; Start 08/03/18 at 00:00 Docusate Sodium (Colace) 100 mg Q12H PRN PO .CONSTIPATION; Start 08/03/18 at 00:00 Bisacodyl (Dulcolax) 5 mg DAILY PRN PO .CONSTIPATION; Start 08/03/18 at 00:00 Ascorbic Acid (Vitamin C) 500 mg DAILY PO Last administered on 08/10/18 09:03; Admin Dose 500 MG; Start 08/03/18 at 09:00 Chlorhexidine Gluconate (Peridex) 15 ml Q12H MM Last administered on 08/09/18 11:38; Admin Dose 15 ML; Start 08/03/18 at 00:00 Ferrous Sulfate (Ferrous Sulfate (Ec)) 325 mg DAILY PO Last administered on 08/10/18 09:03; Admin Dose 325 MG; Start 08/03/18 at 09:00 Pantoprazole (Protonix Tab) 40 mg AC BREAKFAST PO Last administered on 08/10/18 09:03; Admin Dose 40 MG; Start 08/03/18 at 07:25 Sucralfate (Carafate) 1 gm AC MEALS AND BEDTIME PO Last administered on 08/10/18 09:03; Admin Dose 1 GM; Start 08/03/18 at 07:25 Albuterol (Proventil 0.083% (Neb)) 2.5 mg Q4H RESP THERAPY PRN NEB TRACHEOSTOMY Last administered on 08/08/18 15:37; Admin Dose 2.5 MG; Start 08/02/18 at 23:45 Multivitamins/ Minerals (Theragran-M) 1 tab DAILY PO Last administered on 08/10/18 09:04; Admin Dose 1 TAB; Start 08/03/18 at 09:00 Miscellaneous Information 1 ea NOTE XX ; Start 08/02/18 at 23:45 Glucose (Glutose) 15 gm Q15M PRN PO DECREASED GLUCOSE; Start 08/02/18 at 23:45 Glucose (Glutose) 22.5 gm Q15M PRN PO DECREASED GLUCOSE; Start 08/02/18 at 23:45 Dextrose (D50w Syringe) 25 ml Q15M PRN IV DECREASED GLUCOSE; Start 08/02/18 at 23:45 Dextrose (D50w Syringe) 50 ml Q15M PRN IV DECREASED GLUCOSE; Start 08/02/18 at 23:45 Glucagon (Glucagen) 1 mg Q15M PRN IM DECREASED GLUCOSE; Start 08/02/18 at 23:45 Glucose (Glutose) 15 gm Q15M PRN BUCCAL DECREASED GLUCOSE; Start 08/02/18 at 23:45 Simethicone (Mylicon) 80 mg Q8H PRN PO DISTENSION/GAS/BLOATING Last ad ministered on 08/04/18 01:55; Admin Dose 80 MG; Start 08/03/18 at 04:30 Amlodipine Besylate (Norvasc) 5 mg DAILY PO Last administered on 08/10/18 09:04; Admin Dose 5 MG; Start 08/03/18 at 09:00 Fluconazole (Diflucan) 100 mg DAILY PO Last administered on 08/10/18 09:03; Admin Dose 100 MG; Start 08/03/18 at 09:00 Linezolid (Zyvox) 600 mg BID PO Last administered on 08/10/18 09:03; Admin Dose 600 MG; Start 08/03/18 at 09:00 Amikacin Sulfate (Amikacin Iv Per Pharmacy) AMIKACIN PER PHARMACY NOTE XX ; Start 08/03/18 at 11:30 Insulin Aspart (Novolog Insulin Pen) NOVOLOG *MILD* ALGORI... AC MEALS AND BEDTIME SC Last administered on 08/08/18 11:55; Admin Dose 2 UNIT; Start 08/03/18 at 17:25 Linagliptin (Tradjenta) 5 mg DAILY PO Last administered on 08/10/18 09:10; Admin Dose 5 MG; Start 08/04/18 at 09:00 Diagnostic Test (Pha) (Accu-Chek) 1 ea 02 XX Last administered on 08/05/18 01:28; Admin Dose 1 EA; Start 08/04/18 at 02:00 Insulin Aspart (Novolog Insulin Pen) 10 unit WITH MEALS SC Last administered on 08/10/18 10:39; Admin Dose 10 UNIT; Start 08/03/18 at 17:55 Acetylcysteine (Mucomyst) 2 ml Q8H RESP THERAPY NEB Last administered on 08/10/18 09:56; Admin Dose 2 ML; Start 08/04/18 at 08:00 Collagenase (Santyl) 1 applic DAILY TOP Last administered on 08/10/18 09:05; A dmin Dose 1 APPLIC; Start 08/04/18 at 09:00 Amikacin Sulfate 500 mg/Sodium Chloride 102 ml @ 101.6 mls/ hr Q48H IVPB Last administered on 08/09/18 20:13; Admin Dose 101.6 MLS/HR; Start 08/05/18 at 20:00 Diphenhydramine HCl (Benadryl) 25 mg Q6H PRN IV rash or itching; Start 08/05/18 at 11:00 Metoprolol Tartrate (Lopressor) 25 mg BID PO Last administered on 08/10/18 09:05; Admin Dose 25 MG; Start 08/06/18 at 13:30 Insulin Glargine (Lantus) 18 units DAILY@2000 SC Last administered on 08/09/18 20:26; Admin Dose 18 UNITS; Start 08/07/18 at 20:00 Nystatin (Nystatin Powder) 1 applic BID TOP Last administered on 08/10/18 09:08; Admin Dose 1 APPLIC; Start 08/08/18 at 12:30 Enoxaparin Sodium (Lovenox) 30 mg Q24H SC Last administered on 08/09/18 11:42; Admin Dose 30 MG; Start 08/08/18 at 12:30; Status Hold Enoxaparin Sodium (Lovenox) 80 mg Q24H SC Last administered on 4/25/19at 11:41; Admin Dose 80 MG; Start 08/08/18 at 12:30; Status Hold Furosemide (Lasix) 40 mg BID IV Last administered on 08/10/18at 09:02; Admin Dose 40 MG; Start 08/09/18 at 09:00 Digoxin (Digoxin) 0.125 mg DAILY@13 PO ; Start 08/10/18 at 13:00 JEIMY LOMAS Aug 10, 2018 11:08
--- NOTE | 2018-08-10 11:29 | PN ---
Date/Time of Note Date/Time of Note DATE: 08/10/18 TIME: 11:28 Assessment/Plan VTE Prophylaxis Risk score (from Ns)>0 risk: 7 SCD applied (from Ns): Yes Pharmacological prophylaxis: LMWH Lines/Catheters IV Catheter Type (from Nrs): Mid Line Urinary Cath still in place: No Assessment/Plan Assessment/Plan On vent. Gross pus draining. scheduled for surg tomorrow. Afebrile. Nl WBC Result Diagram: 08/10/18 0759 08/10/18 0759 Results 24hrs Laboratory Tests Test 08/09/18 11:42 08/09/18 17:22 08/09/18 19:23 08/09/18 20:20 Bedside Glucose 104 83 152 Amikacin Level 3.5 L Trough Test 08/09/18 21:29 08/10/18 07:59 08/10/18 08:04 08/10/18 09:13 Amikacin Level Peak White Blood 8.9 Count Red Blood Count 3.18 L Hemoglobin 8.0 L Hematocrit 26.2 L Mean Corpuscular 82.4 Volume Mean Corpuscular 25.2 L Hemoglobin Mean Corpuscular 30.5 L Hemoglobin Dorene nt Red Cell 18.1 H Distribution Width Platelet Count 156 Mean Platelet 9.3 Volume Immature 0.800 H Granulocytes % Neutrophils % 71.8 Lymphocytes % 13.2 L Monocytes % 10.8 Eosinophils % 2.8 Basophils % 0.6 Nucleated Red 0.0 Blood Cells % Immature 0.070 H Granulocytes # Neutrophils # 6.4 Lymphocytes # 1.2 Monocytes # 1.0 H Eosinophils # 0.3 Basophils # 0.1 Nucleated Red 0.0 Blood Cells # Sodium Level 139 Potassium Level 4.3 Chloride Level 106 Carbon Dioxide 28 Level Anion Gap 5 Blood Urea 26 H Nitrogen Creatinine 2.08 H Est Glomerular 32 L Filtrat Rate mL/min Glucose Level 71 Calcium Level 8.4 Phosphorus Level 5.0 H Magnesium Level 2.0 Digoxin Level 1.7 Bedside Glucose 78 129 Test 08/10/18 09:52 08/10/18 10:44 Lab Scanned REFERENCE LAB REFERENCE LAB Report Exam/Review of Systems Exam Vitals Vital Signs Date Temp Pulse Resp B/P (MAP) Pulse Ox O2 O2 Flow FiO2 Time Delivery Rate 08/10/18 98.2 70 19 153/69 95 Trach 11:15 (97) Collar 08/10/18 30 09:05 Intake and Output 08/09/18 08/09/18 08/10/18 1515:00 23:00 07:00 IntakeIntake Total 602 ml 300 ml OutputOutput Total 1400 ml BalanceBalance 602 ml -1100 ml Results Results 24hrs Laboratory Tests Test 08/09/18 11:42 08/09/18 17:22 08/09/18 19:23 08/09/18 20:20 Bedside Glucose 104 83 152 Amikacin Level 3.5 L Trough Test 08/09/18 21:29 08/10/18 07:59 08/10/18 08:04 08/10/18 09:13 Amikacin Level Peak White Blood 8.9 Count Red Blood Count 3.18 L Hemoglobin 8.0 L Hematocrit 26.2 L Mean Corpuscular 82.4 Volume Mean Corpuscular 25.2 L Hemoglobin Mean Corpuscular 30.5 L Hemoglobin Dorene nt Red Cell 18.1 H Distribution Width Platelet Count 156 Mean Platelet 9.3 Volume Immature 0.800 H Granulocytes % Neutrophils % 71.8 Lymphocytes % 13.2 L Monocytes % 10.8 Eosinophils % 2.8 Basophils % 0.6 Nucleated Red 0.0 Blood Cells % Immature 0.070 H Granulocytes # Neutrophils # 6.4 Lymphocytes # 1.2 Monocytes # 1.0 H Eosinophils # 0.3 Basophils # 0.1 Nucleated Red 0.0 Blood Cells # Sodium Level 139 Potassium Level 4.3 Chloride Level 106 Carbon Dioxide 28 Level Anion Gap 5 Blood Urea 26 H Nitrogen Creatinine 2.08 H Est Glomerular 32 L Filtrat Rate mL/min Glucose Level 71 Calcium Level 8.4 Phosphorus Level 5.0 H Magnesium Level 2.0 Digoxin Level 1.7 Bedside Glucose 78 129 Test 08/10/18 09:52 08/10/18 10:44 Lab Scanned REFERENCE LAB REFERENCE LAB Report Medications Medication Current Medications IV Flush (NS 3 ml) 3 ml PER PROTOCOL IV ; Start 08/03/18 at 00:00 Ondansetron HCl (Zofran Inj) 4 mg Q6H PRN IV NAUSEA/VOMITING Last administered on 08/03/18at 03:48; Admin Dose 4 MG; Start 08/03/18 at 00:00 Nitroglycerin (Nitroglycerin (Sl Tab) 0.4 Mg) 1 tab Q5M PRN SL .CHEST PAIN; Start 08/03/18 at 00:00 Acetaminophen (Tylenol Tab) 650 mg Q6H PRN PO .PAIN 1-3 OR TEMP Last administered on 08/04/18 03:49; Admin Dose 650 MG; Start 08/03/18 at 00:00 Morphine Sulfate (morphine) 2 mg Q4H PRN IV .PAIN 7-10 Last administered on 08/09/18 09:58; Admin Dose 2 MG; Start 08/03/18 at 00:00 Docusate Sodium (Colace) 100 mg Q12H PRN PO .CONSTIPATION; Start 08/03/18 at 00:00 Bisacodyl (Dulcolax) 5 mg DAILY PRN PO .CONSTIPATION; Start 08/03/18 at 00:00 Ascorbic Acid (Vitamin C) 500 mg DAILY PO Last administered on 08/10/18 09:03; Admin Dose 500 MG; Start 08/03/18 at 09:00 Chlorhexidine Gluconate (Peridex) 15 ml Q12H MM Last administered on 08/09/18 11:38; Admin Dose 15 ML; Start 08/03/18 at 00:00 Ferrous Sulfate (Ferrous Sulfate (Ec)) 325 mg DAILY PO Last administered on 08/10/18 09:03; Admin Dose 325 MG; Start 08/03/18 at 09:00 Pantoprazole (Protonix Tab) 40 mg AC BREAKFAST PO Last administered on 08/10/18 09:03; Admin Dose 40 MG; Start 08/03/18 at 07:25 Sucralfate (Carafate) 1 gm AC MEALS AND BEDTIME PO Last administered on 08/10/18 09:03; Admin Dose 1 GM; Start 08/03/18 at 07:25 Albuterol (Proventil 0.083% (Neb)) 2.5 mg Q4H RESP THERAPY PRN NEB TRACHEOSTOMY Last administered on 08/08/18 15:37; Admin Dose 2.5 MG; Start 08/02/18 at 23:45 Multivitamins/ Minerals (Theragran-M) 1 tab DAILY PO Last administered on 08/10/18 09:04; Admin Dose 1 TAB; Start 08/03/18 at 09:00 Miscellaneous Information 1 ea NOTE XX ; Start 08/02/18 at 23:45 Glucose (Glutose) 15 gm Q15M PRN PO DECREASED GLUCOSE; Start 08/02/18 at 23:45 Glucose (Glutose) 22.5 gm Q15M PRN PO DECREASED GLUCOSE; Start 08/02/18 at 2 3:45 Dextrose (D50w Syringe) 25 ml Q15M PRN IV DECREASED GLUCOSE; Start 08/02/18 at 23:45 Dextrose (D50w Syringe) 50 ml Q15M PRN IV DECREASED GLUCOSE; Start 08/02/18 at 23:45 Glucagon (Glucagen) 1 mg Q15M PRN IM DECREASED GLUCOSE; Start 08/02/18 at 23:45 Glucose (Glutose) 15 gm Q15M PRN BUCCAL DECREASED GLUCOSE; Start 08/02/18 at 23:45 Simethicone (Mylicon) 80 mg Q8H PRN PO DISTENSION/GAS/BLOATING Last administered on 08/04/18 01:55; Admin Dose 80 MG; Start 08/03/18 at 04:30 Amlodipine Besylate (Norvasc) 5 mg DAILY PO Last administered on 08/10/18 09:04; Admin Dose 5 MG; Start 08/03/18 at 09:00 Fluconazole (Diflucan) 100 mg DAILY PO Last administered on 08/10/18 09:03; Admin Dose 100 MG; Start 08/03/18 at 09:00 Linezolid (Zyvox) 600 mg BID PO Last administered on 08/10/18 09:03; Admin Dose 600 MG; Start 08/03/18 at 09:00 Amikacin Sulfate (Amikacin Iv Per Pharmacy) AMIKACIN PER PHARMACY NOTE XX ; Start 08/03/18 at 11:30 Insulin Aspart (Novolog Insulin Pen) NOVOLOG *MILD* ALGORI... AC MEALS AND BEDTIME SC Last administered on 08/08/18 11:55; Admin Dose 2 UNIT; Start 07/16 01/03 at 17:25 Linagliptin (Tradjenta) 5 mg DAILY PO Last administered on 08/10/18 09:10; Admin Dose 5 MG; Start 08/04/18 at 09:00 Diagnostic Test (Pha) (Accu-Chek) 1 ea 02 XX Last administered on 08/05/18 01:28; Admin Dose 1 EA; Start 08/04/18 at 02:00 Insulin Aspart (Novolog Insulin Pen) 10 unit WITH MEALS SC Last administered on 08/10/18 10:39; Admin Dose 10 UNIT; Start 08/03/18 at 17:55 Acetylcysteine (Mucomyst) 2 ml Q8H RESP THERAPY NEB Last administered on 08/10/18 09:56; Admin Dose 2 ML; Start 08/04/18 at 08:00 Collagenase (Santyl) 1 applic DAILY TOP Last administered on 08/10/18 09:05; Admin Dose 1 APPLIC; Start 08/04/18 at 09:00 Amikacin Sulfate 500 mg/Sodium Chloride 102 ml @ 101.6 mls/ hr Q48H IVPB Last administered on 08/09/18 20:13; Admin Dose 101.6 MLS/HR; Start 08/05/18 at 20:00 Diphenhydramine HCl (Benadryl) 25 mg Q6H PRN IV rash or itching; Start 08/05/18 at 11:00 Metoprolol Tartrate (Lopressor) 25 mg BID PO Last administered on 08/10/18 09:05; Admin Dose 25 MG; Start 08/06/18 at 13:30 Insulin Glargine (Lantus) 18 units DAILY@2000 SC Last administered on 08/09/18 20:26; Admin Dose 18 UNITS; Start 08/07/18 at 20:00 Nystatin (Nystatin Powder) 1 applic BID TOP Last administered on 08/10/18 09:08; Admin Dose 1 APPLIC; Start 08/08/18 at 12:30 Enoxaparin Sodium (Lovenox) 30 mg Q24H SC Last administered on 08/09/18 11:42; Admin Dose 30 MG; Start 08/08/18 at 12:30; Status Hold Enoxaparin Sodium (Lovenox) 80 mg Q24H SC Last administered on 08/09/18 11:41; Admin Dose 80 MG; Start 08/08/18 at 12:30; Status Hold Furosemide (Lasix) 40 mg BID IV Last administered on 08/10/18 09:02; Admin Dose 40 MG; Start 08/09/18 at 09:00 Digoxin (Digoxin) 0.125 mg DAILY@13 PO ; Start 08/10/18 at 13:00 ANTONIO WEBB MD Aug 10, 2018 11:29
[2018-08-10] MEDS: CHLORHEXIDINE GLUCONATE 15 ML UD CUP MM SCH ×2 (12:00→23:18)
[2018-08-10] MEDS: DIGOXIN 0.125 MG TAB PO SCH (14:18)
--- NOTE | 2018-08-10 14:55 | CONS ---
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 Chronic kidney disease stage: stage 3 (moderate) Qualified Codes: E11.22 - Type 2 diabetes mellitus with diabetic chronic kidney disease; N18.3 - Chronic kidney disease, stage 3 (moderate); Z79.4 - senior care (current) use of insulin Consultation Date/Type/Reason Admit Date/Time Aug 02, 2018 at 22:00 Initial Consult Date 08/03/18 Type of Consult Endocrinology Reason for Consultation Diabetes mellitus type II Requesting Provider: DEJUAN ORTIZ MD, [facility] Date/Time of Note DATE: 08/10/18 TIME: 14:54 24 HR Interval Summary Free Text/Dictation Patient without any changes Exam/Review of Systems Exam Vitals Vital Signs Date Temp Pulse Resp B/P (MAP) Pulse Ox O2 O2 Flow FiO2 Time Delivery Rate 08/10/18 63 12:11 08/10/18 100 30 11:15 08/10/18 98.2 153/69 Trach 11:15 (97) Collar Intake and Output 08/09/18 08/09/18 08/10/18 1414:59 22:59 06:59 IntakeIntake Total 602 ml 300 ml OutputOutput Total 1400 ml BalanceBalance 602 ml -1100 ml Exam No change in exam Results Result Diagram: 08/10/18 0759 08/10/18 0759 Results 24hrs Laboratory Tests Test 08/09/18 17:22 08/09/18 19:23 08/09/18 20:20 08/09/18 21:29 Bedside Glucose 83 152 Amikacin Level 3.5 L Trough Amikacin Level Peak Test 08/10/18 07:59 08/10/18 08:04 08/10/18 09:13 08/10/18 09:52 White Blood 8.9 Count Red Blood Count 3.18 L Hemoglobin 8.0 L Hematocrit 26.2 L Mean Corpuscular 82.4 Volume Mean Corpuscular 25.2 L Hemoglobin Mean Corpuscular 30.5 L Hemoglobin Dorene nt Red Cell 18.1 H Distribution Width Platelet Count 156 Mean Platelet 9.3 Volume Immature 0.800 H Granulocytes % Neutrophils % 71.8 Lymphocytes % 13.2 L Monocytes % 10.8 Eosinophils % 2.8 Basophils % 0.6 Nucleated Red 0.0 Blood Cells % Immature 0.070 H Granulocytes # Neutrophils # 6.4 Lymphocytes # 1.2 Monocytes # 1.0 H Eosinophils # 0.3 Basophils # 0.1 Nucleated Red 0.0 Blood Cells # Sodium Level 139 Potassium Level 4.3 Chloride Level 106 Carbon Dioxide 28 Level Anion Gap 5 Blood Urea 26 H Nitrogen Creatinine 2.08 H Est Glomerular 32 L Filtrat Rate mL/min Glucose Level 71 Calcium Level 8.4 Phosphorus Level 5.0 H Magnesium Level 2.0 Digoxin Level 1.7 Bedside Glucose 78 129 Lab Scanned REFERENCE LAB Report Test 08/10/18 10:44 08/10/18 11:50 Lab Scanned REFERENCE LAB Report Bedside Glucose 102 Medications Medication Current Medications IV Flush (NS 3 ml) 3 ml PER PROTOCOL IV ; Start 08/03/18 at 00:00 Ondansetron HCl (Zofran Inj) 4 mg Q6H PRN IV NAUSEA/VOMITING Last administered on 08/03/18 03:48; Admin Dose 4 MG; Start 08/03/18 at 00:00 Nitroglycerin (Nitroglycerin (Sl Tab) 0.4 Mg) 1 tab Q5M PRN SL .CHEST PAIN; Start 08/03/18 at 00:00 Acetaminophen (Tylenol Tab) 650 mg Q6H PRN PO .PAIN 1-3 OR TEMP Last administered on 08/04/18 03:49; Admin Dose 650 MG; Start 08/03/18 at 00:00 Morphine Sulfate (morphine) 2 mg Q4H PRN IV .PAIN 7-10 Last administered on 08/09/18 09:58; Admin Dose 2 MG; Start 08/03/18 at 00:00 Docusate Sodium (Colace) 100 mg Q12H PRN PO .CONSTIPATION; Start 08/03/18 at 00:00 Bisacodyl (Dulcolax) 5 mg DAILY PRN PO .CONSTIPATION; Start 08/03/18 at 00:00 Ascorbic Acid (Vitamin C) 500 mg DAILY PO Last administered on 08/10/18 09:03; Admin Dose 500 MG; Start 08/03/18 at 09:00 Chlorhexidine Gluconate (Peridex) 15 ml Q12H MM Last administered on 08/09/18 11:38; Admin Dose 15 ML; Start 08/03/18 at 00:00 Ferrous Sulfate (Ferrous Sulfate (Ec)) 325 mg DAILY PO Last administered on 08/10/18 09:03; Admin Dose 325 MG; Start 08/03/18 at 09:00 Pantoprazole (Protonix Tab) 40 mg AC BREAKFAST PO Last administered on 08/10/18 09:03; Admin Dose 40 MG; Start 08/03/18 at 07:25 Sucralfate (Carafate) 1 gm AC MEALS AND BEDTIME PO Last administered on 08/10/18 09:03; Admin Dose 1 GM; Start 08/03/18 at 07:25 Albuterol (Proventil 0.083% (Neb)) 2.5 mg Q4H RESP THERAPY PRN NEB TRACHEOSTOMY Last administered on 08/08/18 15:37; Admin Dose 2.5 MG; Start 08/02/18 at 23:45 Multivitamins/ Minerals (Theragran-M) 1 tab DAILY PO Last administered on 08/10/18 09:04; Admin Dose 1 TAB; Start 08/03/18 at 09:00 Miscellaneous Information 1 ea NOTE XX ; Start 08/02/18 at 23:45 Glucose (Glutose) 15 gm Q15M PRN PO DECREASED GLUCOSE; Start 08/02/18 at 23:45 Glucose (Glutose) 22.5 gm Q15M PRN PO DECREASED GLUCOSE; Start 08/02/18 at 23:45 Dextrose (D50w Syringe) 25 ml Q15M PRN IV DECREASED GLUCOSE; Start 08/02/18 at 23:45 Dextrose (D50w Syringe) 50 ml Q15M PRN IV DECREASED GLUCOSE; Start 08/02/18 at 23:45 Glucagon (Glucagen) 1 mg Q15M PRN IM DECREASED GLUCOSE; Start 08/02/18 at 23:45 Glucose (Glutose) 15 gm Q15M PRN BUCCAL DECREASED GLUCOSE; Start 08/02/18 at 23:45 Simethicone (Mylicon) 80 mg Q8H PRN PO DISTENSION/GAS/BLOATING Last administered on 08/04/18 01:55; Admin Dose 80 MG; Start 08/03/18 at 04:30 Amlodipine Besylate (Norvasc) 5 mg DAILY PO Last administered on 08/10/18 09:04; Admin Dose 5 MG; Start 08/03/18 at 09:00 Fluconazole (Diflucan) 100 mg DAILY PO Last administered on 08/10/18 09:03; Admin Dose 100 MG; Start 08/03/18 at 09:00 Linezolid (Zyvox) 600 mg BID PO Last administered on 08/10/18 09:03; Admin Dose 600 MG; Start 08/03/18 at 09:00 Amikacin Sulfate (Amikacin Iv Per Pharmacy) AMIKACIN PER PHARMACY NOTE XX ; Start 08/03/18 at 11:30 Insulin Aspart (Novolog Insulin Pen) NOVOLOG *MILD* ALGORI... AC MEALS AND BEDTIME SC Last administered on 08/08/18 11:55; Admin Dose 2 UNIT; Start 08/03/18 at 17:25 Linagliptin (Tradjenta) 5 mg DAILY PO Last administered on 08/10/18 09:10; Admin Dose 5 MG; Start 08/04/18 at 09:00 Diagnostic Test (Pha) (Accu-Chek) 1 ea 02 XX Last administered on 08/05/18 01:28; Admin Dose 1 EA; Start 08/04/18 at 02:00 Insulin Aspart (Novolog Insulin Pen) 10 unit WITH MEALS SC Last administered on 08/10/18 11:59; Admin Dose 10 UNIT; Start 08/03/18 at 17:55 Acetylcysteine (Mucomyst) 2 ml Q8H RESP THERAPY NEB Last administered on 08/10/18 09:56; Admin Dose 2 ML; Start 08/04/18 at 08:00 Collagenase (Santyl) 1 applic DAILY TOP Last administered on 08/10/18 09:05; Admin Dose 1 APPLIC; Start 08/04/18 at 09:00 Amikacin Sulfate 500 mg/Sodium Chloride 102 ml @ 101.6 mls/ hr Q48H IVPB Last administered on 08/09/18 20:13; Admin Dose 101.6 MLS/HR; Start 08/05/18 at 20:00 Diphenhydramine HCl (Benadryl) 25 mg Q6H PRN IV rash or itching; Start 08/05/18 at 11:00 Metoprolol Tartrate (Lopressor) 25 mg BID PO Last administered on 08/10/18 0 9:05; Admin Dose 25 MG; Start 08/06/18 at 13:30 Insulin Glargine (Lantus) 18 units DAILY@2000 SC Last administered on 08/09/18 20:26; Admin Dose 18 UNITS; Start 08/07/18 at 20:00 Nystatin (Nystatin Powder) 1 applic BID TOP Last administered on 08/10/18 09:08; Admin Dose 1 APPLIC; Start 08/08/18 at 12:30 Enoxaparin Sodium (Lovenox) 30 mg Q24H SC Last administered on 08/09/18 11:42; Admin Dose 30 MG; Start 08/08/18 at 12:30; Status Hold Enoxaparin Sodium (Lovenox) 80 mg Q24H SC Last administered on 08/09/18 11:41; Admin Dose 80 MG; Start 08/08/18 at 12:30; Status Hold Furosemide (Lasix) 40 mg BID IV Last administered on 08/10/18 09:02; Admin Dose 40 MG; Start 08/09/18 at 09:00 Digoxin (Digoxin) 0.125 mg DAILY@13 PO Last administered on 08/10/18 14:18; Admin Dose 0.125 MG; Start 08/10/18 at 13:00 SAMARIA LONGORIA MD Aug 10, 2018 14:55
--- NOTE | 2018-08-10 15:06 | CONS ---
Assessment/Plan Assessment/Plan Hospital Course (Demo Recall) No acute events, sleeping, looks comfortable,no fevers. +Cloudy drainage from one of the CT Microbiology: Sputum culture growing Serratia and pseudomonas aeruginosa, multidrug-resistant, urine culture grew Annmarie albicans Antimicrobials: Amikacin, Zyvox, fluconazole Indwelling: Trach PEG, R CT's x2 Physical examination: Well-developed obese fragile elderly man who is awake in no distress. Head atraumatic normocephalic Neck is supple, tracheostomy present. Chest rise symmetrical breath sounds diminished bases. Heart: S1-S2. Abdomen soft bowel sounds present, extremities without cyanosis, + edema Assessment: 1. Systemic inflammatory response syndrome with leukocytosis 2 to #2 2. HCAP with empyema, s/p CT's 3. Acute on chronic kidney disease 4. Dysphagia 5. Fungal UTI 6. Paroxysmal atrial fibrillation 7. Diabetes Plan: Remains stable, continue abx, pending VATS Consultation Date/Type/Reason Admit Date/Time Aug 02, 2018 at 22:00 Initial Consult Date Type of Consult id Requesting Provider: DEJUAN ORTIZ MD, [facility] Date/Time of Note DATE: 08/10/18 TIME: 15:05 Exam/Review of Systems Exam Vitals Vital Signs Date Temp Pulse Resp B/P (MAP) Pulse Ox O2 O2 Flow FiO2 Time Delivery Rate 08/10/18 66 17 99 30 13:10 08/10/18 98.2 153/69 Trach 11:15 (97) Collar Intake and Output 08/09/18 08/09/18 08/10/18 1515:00 23:00 07:00 IntakeIntake Total 602 ml 300 ml OutputOutput Total 1400 ml BalanceBalance 602 ml -1100 ml Results Result Diagram: 08/10/18 0759 08/10/18 0759 Results 24hrs Laboratory Tests Test 08/09/18 17:22 08/09/18 19:23 08/09/18 20:20 08/09/18 21:29 Bedside Glucose 83 152 Amikacin Level 3.5 L Trough Amikacin Level Peak Test 08/10/18 07:59 08/10/18 08:04 08/10/18 09:13 08/10/18 09:52 White Blood 8.9 Count Red Blood Count 3.18 L Hemoglobin 8.0 L Hematocrit 26.2 L Mean Corpuscular 82.4 Volume Mean Corpuscular 25.2 L Hemoglobin Mean Corpuscular 30.5 L Hemoglobin Dorene nt Red Cell 18.1 H Distribution Width Platelet Count 156 Mean Platelet 9.3 Volume Immature 0.800 H Granulocytes % Neutrophils % 71.8 Lymphocytes % 13.2 L Monocytes % 10.8 Eosinophils % 2.8 Basophils % 0.6 Nucleated Red 0.0 Blood Cells % Immature 0.070 H Granulocytes # Neutrophils # 6.4 Lymphocytes # 1.2 Monocytes # 1.0 H Eosinophils # 0.3 Basophils # 0.1 Nucleated Red 0.0 Blood Cells # Sodium Level 139 Potassium Level 4.3 Chloride Level 106 Carbon Dioxide 28 Level Anion Gap 5 Blood Urea 26 H Nitrogen Creatinine 2.08 H Est Glomerular 32 L Filtrat Rate mL/min Glucose Level 71 Calcium Level 8.4 Phosphorus Level 5.0 H Magnesium Level 2.0 Digoxin Level 1.7 Bedside Glucose 78 129 Lab Scanned REFERENCE LAB Report Test 08/10/18 10:44 08/10/18 11:50 Lab Scanned REFERENCE LAB Report Bedside Glucose 102 Medications Medication Current Medications IV Flush (NS 3 ml) 3 ml PER PROTOCOL IV ; Start 08/03/18 at 00:00 Ondansetron HCl (Zofran Inj) 4 mg Q6H PRN IV NAUSEA/VOMITING Last administered on 08/03/18at 03:48; Admin Dose 4 MG; Start 08/03/18 at 00:00 Nitroglycerin (Nitroglycerin (Sl Tab) 0.4 Mg) 1 tab Q5M PRN SL .CHEST PAIN; Start 08/03/18 at 00:00 Acetaminophen (Tylenol Tab) 650 mg Q6H PRN PO .PAIN 1-3 OR TEMP Last adminis tered on 08/04/18at 03:49; Admin Dose 650 MG; Start 08/03/18 at 00:00 Morphine Sulfate (morphine) 2 mg Q4H PRN IV .PAIN 7-10 Last administered on 08/09/18at 09:58; Admin Dose 2 MG; Start 08/03/18 at 00:00 Docusate Sodium (Colace) 100 mg Q12H PRN PO .CONSTIPATION; Start 08/03/18 at 00:00 Bisacodyl (Dulcolax) 5 mg DAILY PRN PO .CONSTIPATION; Start 08/03/18 at 00:00 Ascorbic Acid (Vitamin C) 500 mg DAILY PO Last administered on 08/10/18 09:03; Admin Dose 500 MG; Start 08/03/18 at 09:00 Chlorhexidine Gluconate (Peridex) 15 ml Q12H MM Last administered on 08/09/18 11:38; Admin Dose 15 ML; Start 08/03/18 at 00:00 Ferrous Sulfate (Ferrous Sulfate (Ec)) 325 mg DAILY PO Last administered on 07/17 09:03; Admin Dose 325 MG; Start 08/03/18 at 09:00 Pantoprazole (Protonix Tab) 40 mg AC BREAKFAST PO Last administered on 08/10/18 09:03; Admin Dose 40 MG; Start 08/03/18 at 07:25 Sucralfate (Carafate) 1 gm AC MEALS AND BEDTIME PO Last administered on 08/10/18 09:03; Admin Dose 1 GM; Start 08/03/18 at 07:25 Albuterol (Proventil 0.083% (Neb)) 2.5 mg Q4H RESP THERAPY PRN NEB TRACHEOSTOMY Last administered on 08/08/18 15:37; Admin Dose 2.5 MG; Start 08/02/18 at 23:45 Multivitamins/ Minerals (Theragran-M) 1 tab DAILY PO Last administered on 08/10/18 09:04; Admin Dose 1 TAB; Start 08/03/18 at 09:00 Miscellaneous Information 1 ea NOTE XX ; Start 08/02/18 at 23:45 Glucose (Glutose) 15 gm Q15M PRN PO DECREASED GLUCOSE; Start 08/02/18 at 23:45 Glucose (Glutose) 22.5 gm Q15M PRN PO DECREASED GLUCOSE; Start 08/02/18 at 23:45 Dextrose (D50w Syringe) 25 ml Q15M PRN IV DECREASED GLUCOSE; Start 08/02/18 at 23:45 Dextrose (D50w Syringe) 50 ml Q15M PRN IV DECREASED GLUCOSE; Start 08/02/18 at 23:45 Glucagon (Glucagen) 1 mg Q15M PRN IM DECREASED GLUCOSE; Start 08/02/18 at 23:45 Glucose (Glutose) 15 gm Q15M PRN BUCCAL DECREASED GLUCOSE; Start 08/02/18 at 23:45 Simethicone (Mylicon) 80 mg Q8H PRN PO DISTENSION/GAS/BLOATING Last administered on 08/04/18 01:55; Admin Dose 80 MG; Start 08/03/18 at 04:30 Amlodipine Besylate (Norvasc) 5 mg DAILY PO Last administered on 08/10/18 09:04; Admin Dose 5 MG; Start 08/03/18 at 09:00 Fluconazole (Diflucan) 100 mg DAILY PO Last administered on 08/10/18 09:03; Admin Dose 100 MG; Start 08/03/18 at 09:00 Linezolid (Zyvox) 600 mg BID PO Last administered on 08/10/18 09:03; Admin Dose 600 MG; Start 08/03/18 at 09:00 Amikacin Sulfate (Amikacin Iv Per Pharmacy) AMIKACIN PER PHARMACY NOTE XX ; Start 08/03/18 at 11:30 Insulin Aspart (Novolog Insulin Pen) NOVOLOG *MILD* ALGORI... AC MEALS AND BEDTIME SC Last administered on 08/08/18 11:55; Admin Dose 2 UNIT; Start 08/03/18 at 17:25 Linagliptin (Tradjenta) 5 mg DAILY PO Last administered on 08/10/18 09:10; Admin Dose 5 MG; Start 08/04/18 at 09:00 Diagnostic Test (Pha) (Accu-Chek) 1 ea 02 XX Last administered on 08/05/18 01:28; Admin Dose 1 EA; Start 08/04/18 at 02:00 Insulin Aspart (Novolog Insulin Pen) 10 unit WITH MEALS SC Last administered on 08/10/18 11:59; Admin Dose 10 UNIT; Start 08/03/18 at 17:55 Acetylcysteine (Mucomyst) 2 ml Q8H RESP THERAPY NEB Last administered on 08/10/18 09:56; Admin Dose 2 ML; Start 08/04/18 at 08:00 Collagenase (Santyl) 1 applic DAILY TOP Last administered on 08/10/18 09:05; Admin Dose 1 APPLIC; Start 08/04/18 at 09:00 Amikacin Sulfate 500 mg/Sodium Chloride 102 ml @ 101.6 mls/ hr Q48H IVPB Last administered on 08/09/18 20:13; Admin Dose 101.6 MLS/HR; Start 08/05/18 at 20:00 Diphenhydramine HCl (Benadryl) 25 mg Q6H PRN IV rash or itching; Start 08/05/18 at 11:00 Metoprolol Tartrate (Lopressor) 25 mg BID PO Last administered on 08/10/18 09:05; Admin Dose 25 MG; Start 08/06/18 at 13:30 Insulin Glargine (Lantus) 18 units DAILY@2000 SC Last administered on 08/09/18 20:26; Admin Dose 18 UNITS; Start 08/07/18 at 20:00 Nystatin (Nystatin Powder) 1 applic BID TOP Last administered on 08/10/18 09:08; Admin Dose 1 APPLIC; Start 08/08/18 at 12:30 Enoxaparin Sodium (Lovenox) 30 mg Q24H SC Last administered on 08/09/18 11:42; Admin Dose 30 MG; Start 08/08/18 at 12:30; Status Hold Enoxaparin Sodium (Lovenox) 80 mg Q24H SC Last administered on 08/09/18 11:41; Admin Dose 80 MG; Start 08/08/18 at 12:30; Status Hold Furosemide (Lasix) 40 mg BID IV Last administered on 08/10/18 09:02; Admin Dose 40 MG; Start 08/09/18 at 09:00 Digoxin (Digoxin) 0.125 mg DAILY@13 PO Last administered on 08/10/18 14:18; Admin Dose 0.125 MG; Start 08/10/18 at 13:00 JUANIS FINN NP Aug 10, 2018 15:06
[2018-08-10] MEDS: INSULIN GLARGINE [LANTus] (100 UNITS/ML) SYG SC SCH (21:22)
[2018-08-10] MEDS: morphine 2 MG INJ IV PRN (22:08)
[2018-08-11] VITALS (42 sets, daily range): BP systolic 95–167; BP diastolic 51–79; PULSE 68–118; RESP 11–22
[2018-08-11] MEDS: ACCU-CHEK XX SCH (01:42)
[2018-08-11] MEDS ORDERED: CEFAZOLIN 1 GM INJ ONE (07:00)
[2018-08-11] MEDS ORDERED: BUPIVACAINE 0.5%/EPI (SDV) 30 ML INJ ONE (07:02)
[2018-08-11] MEDS ORDERED: LIDOCAINE 1% (MPF) 30 ML INJ ONE (07:02)
[2018-08-11] MEDS: SUCRALFATE 1 GM TAB PO SCH ×4 (07:25→20:49)
[2018-08-11] MEDS: INSULIN ASPART [NOVOLOG] 3 ML PEN SC SCH ×7 (07:25→21:02)
[2018-08-11] MEDS: PANTOPRAZOLE (EC) 40 MG TAB PO SCH (07:25)
--- NOTE | 2018-08-11 07:26 | HPN ---
Date/Time of Note Date/Time of Note DATE: 08/11/18 TIME: 07:26 Interval H&P Admission Note Pt. seen H&P reviewed: No system changes NATALIE ALAN MD Aug 11, 2018 07:26
--- NOTE | 2018-08-11 07:37 | PREAC ---
Date/Time of Note Date/Time of Note DATE: 08/11/18 TIME: 07:31 Anesthesia Eval and Record Evaluation Time Pre-Procedure Interview DATE: 08/11/18 TIME: 07:31 Age 68 Sex male NPO: 8 hrs Preoperative diagnosis respiratory insufficiency Planned procedure Rt lung decortication Past Medical History Past Medical History: Includes Cardio: HTN, Dyslipidemia, CAD, CHF Endo: Diabetes Pulm: COPD, Other (s/p tracheostomy) Renal: CKD, ESRD on dialysis GI: Morbid obesity Surgery & Anesthesia Issues No known issue Meds Anticoagulation: No Beta Yadira within 24 hr: Yes Reported Medications Amlodipine Besylate* (Amlodipine Besylate*) 2.5 Mg Tablet, 5 MG PO DAILY, #30 TAB 08/03/18 Acetylcysteine* (Mucomyst*) 4 Ml Soln, 2 ML NEB Q8, EA 08/03/18 Sodium Ferric Gluconate Complx (FERRLECIT 62.5 MG/5 ML VIAL) 62.5 Mg/5 Ml Soln, 125 MG IV DAILY 08/03/18 Loratadine (Loratadine) 10 Mg Capsule, 10 MG PO DAILY, CAP 08/03/18 Nystatin* (Nystatin*) 15 Gm Cr, 1 APPLIC TOP BID, #1 TUB 08/03/18 Metoprolol Tartrate* (Lopressor*) 25 Mg Tablet, 25 MG PO BID, #60 TAB 08/03/18 Linezolid* (Zyvox*) 600 Mg Tablet, 600 MG PO BID, TAB 08/03/18 Linagliptin (TRADJENTA) 5 Mg Tablet, 5 MG PO DAILY, TAB 08/03/18 Fluconazole* (Fluconazole*) 100 Mg Tablet, 100 MG PO DAILY, TAB 08/03/18 Amikacin Sulfate* (Amikacin* Pediatric IV Syringe) 5 Mg/Ml Soln, 400 MG IV q48hr, EA 08/03/18 Insulin Aspart* (Novolog Insulin Pen*) 100 Unit/Ml Soln, 0 SC .SLIDING SCALE AC, EA OR 5 UNITS AC MEALS TID 07/18/18 Insulin Glargine,Hum.rec.anlog (Basaglar Kwikpen U-100) 100 Unit/1 Ml In suln.pen, 28 UNIT SC QHS, EA 07/18/18 Insulin Glargine,Hum.rec.anlog (Basaglar Kwikpen U-100) 100 Unit/1 Ml Insuln.pen, 18 UNIT SC QAM, EA 07/18/18 Acetaminophen* (Acetaminophen*) 500 MG Extra Strength Tablet, 1000 MG PO Q8H PRN for PAIN, TAB 07/18/18 Acetaminophen* (Tylenol*) 325 Mg Tablet, 650 MG PO Q4H PRN for MILD PAIN LEVEL 1-3, TAB AND FEVER 07/18/18 Ascorbic Acid (Vitamin C) 500 Mg Tab, 500 MG PO DAILY, TAB 07/18/18 Lorazepam* (Lorazepam*) 1 Mg Tablet, 1 MG PO Q6 PRN for ANXIETY, #60 TAB 07/18/18 Sucralfate* (Carafate*) 1 Gm Tab, 1 GM PO AC MEALS AND BEDTIME, TAB 07/18/18 Rivaroxaban* (Xarelto*) 15 Mg Tablet, 15 MG PO WITH DINNER, TAB 07/18/18 Multivitamin with Minerals (Multivitamins with Minerals) 1 Each Tablet, 1 EACH P O DAILY, TAB 07/18/18 Pantoprazole* (Pantoprazole*) 40 Mg Tablet.dr, 40 MG PO AC BREAKFAST, TAB 07/18/18 Polyethylene Glycol* (Miralax*) 17 Gm Powd.pack, 17 GM PO DAILY, #30 PACKET 07/18/18 Ferrous Sulfate* (Ferrous Sulfate*) 325 Mg Tabec, 325 MG PO DAILY, TAB 07/18/18 Digoxin* (Digitek*) 250 Mcg Tablet, 0.25 MG PO DAILY, TAB HOLD IF HR<60 07/18/18 Cranberry Fruit (CRANBERRY) 450 Mg Tablet, 450 MG PO DAILY, TAB 07/18/18 Chlorhexidine Gluconate (Peridex) 473 Ml Mouthwash, 15 ML MM Q12H, BOTTLE 07/18/18 Ipratropium-Albuterol (Ipratropium-Albuterol) 0.5-3 Mg/3 Ml Ampul.neb, 3 ML INHALATION Q4H PRN for VIA TRACHEOSTOMY, #30 VIAL 07/18/18 Albuterol Sulfate* (Albuterol Sulfate* Neb) 0.083%-3 Ml Neb, 2.5 MG NEB Q4H PRN for TRACHEOSTOMY, #30 VIAL AND Q6H NEEDED 07/18/18 Current Medications IV Flush (NS 3 ml) 3 ml PER PROTOCOL IV ; Start 08/03/18 at 00:00 Ondansetron HCl (Zofran Inj) 4 mg Q6H PRN IV NAUSEA/VOMITING Last administered on 08/03/18 03:48; Admin Dose 4 MG; Start 08/03/18 at 00:00 Nitroglycerin (Nitroglycerin (Sl Tab) 0.4 Mg) 1 tab Q5M PRN SL .CHEST PAIN; Start 08/03/18 at 00:00 Acetaminophen (Tylenol Tab) 650 mg Q6H PRN PO .PAIN 1-3 OR TEMP Last administered on 08/04/18 03:49; Admin Dose 650 MG; Start 08/03/18 at 00:00 Morphine Sulfate (morphine) 2 mg Q4H PRN IV .PAIN 7-10 Last administered on 08/10/18 22:08; Admin Dose 2 MG; Start 08/03/18 at 00:00 Docusate Sodium (Colace) 100 mg Q12H PRN PO .CONSTIPATION; Start 08/03/18 at 00:00 Bisacodyl (Dulcolax) 5 mg DAILY PRN PO .CONSTIPATION; Start 08/03/18 at 00:00 Ascorbic Acid (Vitamin C) 500 mg DAILY PO Last administered on 08/10/18 09:03; Admin Dose 500 MG; Start 08/03/18 at 09:00 Chlorhexidine Gluconate (Peridex) 15 ml Q12H MM Last administered on 08/09/18 11:38; Admin Dose 15 ML; Start 08/03/18 at 00:00 Ferrous Sulfate (Ferrous Sulfate (Ec)) 325 mg DAILY PO Last administered on 08/10/18 09:03; Admin Dose 325 MG; Start 08/03/18 at 09:00 Pantoprazole (Protonix Tab) 40 mg AC BREAKFAST PO Last administered on 9at 09:03; Admin Dose 40 MG; Start 08/03/18 at 07:25 Sucralfate (Carafate) 1 gm AC MEALS AND BEDTIME PO Last administered on 08/10/18 21:00; Admin Dose 1 GM; Start 08/03/18 at 07:25 Albuterol (Proventil 0.083% (Neb)) 2.5 mg Q4H RESP THERAPY PRN NEB TRACHEOSTOMY Last administered on 08/08/18 15:37; Admin Dose 2.5 MG; Start 08/02/18 at 23:45 Multivitamins/ Minerals (Theragran-M) 1 tab DAILY PO Last administered on 08/10/18 09:04; Admin Dose 1 TAB; Start 08/03/18 at 09:00 Miscellaneous Information 1 ea NOTE XX ; Start 08/02/18 at 23:45 Glucose (Glutose) 15 gm Q15M PRN PO DECREASED GLUCOSE; Start 08/02/18 at 23:45 Glucose (Glutose) 22.5 gm Q15M PRN PO DECREASED GLUCOSE; Start 08/02/18 at 23:45 Dextrose (D50w Syringe) 25 ml Q15M PRN IV DECREASED GLUCOSE; Start 08/02/18 at 23:45 Dextrose (D50w Syringe) 50 ml Q15M PRN IV DECREASED GLUCOSE; Start 08/02/18 at 23:45 Glucagon (Glucagen) 1 mg Q15M PRN IM DECREASED GLUCOSE; Start 08/02/18 at 23:45 Glucose (Glutose) 15 gm Q15M PRN BUCCAL DECREASED GLUCOSE; Start 08/02/18 at 23:45 Simethicone (Mylicon) 80 mg Q8H PRN PO DISTENSION/GAS/BLOATING Last administered on 08/04/18 01:55; Admin Dose 80 MG; Start 08/03/18 at 04:30 Amlodipine Besylate (Norvasc) 5 mg DAILY PO Last administered on 08/10/18 09:04; Admin Dose 5 MG; Start 08/03/18 at 09:00 Fluconazole (Diflucan) 100 mg DAILY PO Last administered on 08/10/18 09:03; Admin Dose 100 MG; Start 08/03/18 at 09:00 Linezolid (Zyvox) 600 mg BID PO Last administered on 08/10/18 20:59; Admin Dose 600 MG; Start 08/03/18 at 09:00 Amikacin Sulfate (Amikacin Iv Per Pharmacy) AMIKACIN PER PHARMACY NOTE XX ; Start 08/03/18 at 11:30 Insulin Aspart (Novolog Insulin Pen) NOVOLOG *MILD* ALGORI... AC MEALS AND BEDTIME SC Last administered on 08/08/18 11:55; Admin Dose 2 UNIT; Start 08/03/18 at 17:25 Linagliptin (Tradjenta) 5 mg DAILY PO Last administered on 08/10/18 09:10; Admin Dose 5 MG; Start 08/04/18 at 09:00 Diagnostic Test (Pha) (Accu-Chek) 1 ea 02 XX Last administered on 08/05/18 01:28; Admin Dose 1 EA; Start 08/04/18 at 02:00 Insulin Aspart (Novolog Insulin Pen) 10 unit WITH MEALS SC Last administered on 08/10/18 17:44; Admin Dose 10 UNIT; Start 08/03/18 at 17:55 Acetylcysteine (Mucomyst) 2 ml Q8H RESP THERAPY NEB Last administered on 08/10/18 15:22; Admin Dose 2 ML; Start 08/04/18 at 08:00 Collagenase (Santyl) 1 applic DAILY TOP Last administered on 08/10/18 09:05; Admin Dose 1 APPLIC; Start 08/04/18 at 09:00 Amikacin Sulfate 500 mg/Sodium Chloride 102 ml @ 101.6 mls/ hr Q48H IVPB Last administered on 08/09/18 20:13; Admin Dose 101.6 MLS/HR; Start 08/05/18 at 20:00 Diphenhydramine HCl (Benadryl) 25 mg Q6H PRN IV rash or itching Last administ ered on 08/10/18 22:22; Admin Dose 25 MG; Start 08/05/18 at 11:00 Metoprolol Tartrate (Lopressor) 25 mg BID PO Last administered on 08/10/18 21:00; Admin Dose 25 MG; Start 08/06/18 at 13:30 Insulin Glargine (Lantus) 18 units DAILY@2000 SC Last administered on 08/10/18 21:22; Admin Dose 18 UNITS; Start 08/07/18 at 20:00 Nystatin (Nystatin Powder) 1 applic BID TOP Last administered on 08/10/18 21:01; Admin Dose 1 APPLIC; Start 08/08/18 at 12:30 Enoxaparin Sodium (Lovenox) 30 mg Q24H SC Last administered on 08/09/18 11:42; Admin Dose 30 MG; Start 08/08/18 at 12:30; Status Hold Enoxaparin Sodium (Lovenox) 80 mg Q24H SC Last administered on 08/09/18at 11:41; Admin Dose 80 MG; Start 08/08/18 at 12:30; Status Hold Furosemide (Lasix) 40 mg BID IV Last administered on 08/10/18at 20:59; Admin Dose 40 MG; Start 08/09/18 at 09:00 Digoxin (Digoxin) 0.125 mg DAILY@13 PO Last administered on 08/10/18at 14:18; Admin Dose 0.125 MG; Start 08/10/18 at 13:00 Meds reviewed: Yes Allergies Coded Allergies: meropenem (Verified Allergy, Intermediate, skin rashes, 08/01/18) Allergies Reviewed: Yes Labs/Studies Labs Reviewed: Reviewed by anesthesiologist Result Diagram: 08/10/18 0759 08/10/18 0759 Laboratory Tests 08/10/18 07:59 test: N/A Studies: ECG Pre-procedure Exam Last vitals Vital Signs Date Temp Pulse Resp B/P (MAP) Pulse Ox O2 O2 Flow FiO2 Time Delivery Rate 08/11/18 75 15 99 30 05:26 08/11/18 98.1 165/64 04:00 (97) 08/10/18 Trach 16:00 Collar Airway: Adequate mouth opening, Adequate thyromental dist Mallampati: Mallampati III Teeth: Normal Lung: Abnormal (s/p tracheostomy, ) Heart: Abnormal (CHF) ASA Physical Status ASA physical status: 4 Emergency: None Planned Anesthetic General/MAC: ETT Planned Pain Management Sub-arachniod narcotics, Parenteral pain med Pre-operative Attestations Prior to commencing anesthesia and surgery, the patient was re-evaluated, there was verification of: *The patient's identity *The results of appropriate recent lab work and preoperative vital signs *The above evaluation not changing prior to induction *Anesthetic plan, risk benefits, alternative and complications discussed with patient/family; questions answered; patient/family understands, accepts and wishes to proceed. SOFÍA CHAUDHARI MD Aug 11, 2018 07:37
[2018-08-11] MEDS ORDERED: MIDAZOLAM 1 MG/ML 2 ML INJ ONE (07:40)
[2018-08-11] MEDS: ACETYLCYSTEINE 20% 4 ML VIAL NEB SCH ×3 (08:00→15:06)
[2018-08-11] MEDS: LINAGLIPTIN 5 MG TABLET PO SCH (09:00)
[2018-08-11] MEDS: METOPROLOL 25 MG TAB PO SCH ×2 (09:00→20:50)
[2018-08-11] MEDS: NYSTATIN 30 GM POWDER BTL TOP SCH ×2 (09:00→23:45)
[2018-08-11] MEDS: ZYVOX 600 MG TAB PO SCH ×2 (09:00→20:49)
[2018-08-11] MEDS: AMLODIPINE 5 MG TAB PO SCH ×2 (09:00→11:50)
[2018-08-11] MEDS: ASCORBIC ACID 500 MG TAB PO SCH (09:00)
[2018-08-11] MEDS: FERROUS SULFATE (EC) 325 MG TAB PO SCH (09:00)
[2018-08-11] MEDS: COLLAGENASE 5 GM (UD JAR) TOP SCH (09:00)
[2018-08-11] MEDS: FLUCONAZOLE 100 MG TAB PO SCH (09:00)
[2018-08-11] MEDS: MULTIVITAMINS/MINERALS TAB PO SCH (09:00)
[2018-08-11] MEDS: FUROSEMIDE 40 MG INJ IV SCH ×2 (09:00→20:49)
[2018-08-11] MEDS ORDERED: ROCURONIUM 50 MG INJ ONE (09:03)
[2018-08-11] MEDS ORDERED: ETOMIDATE 20 MG INJ ONE (09:03)
[2018-08-11] MEDS ORDERED: LIDOCAINE 2% (SDV) 5 ML INJ ONE (09:03)
--- NOTE | 2018-08-11 09:08 | SIPON ---
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
[2018-08-11] MEDS ORDERED: morphine (1 MG/ML) 10ML SYRINGE IV PRN ×2 (09:30)
[2018-08-11] MEDS ORDERED: DIPHENHYDRAMINE 50 MG INJ IV PRN (09:30)
[2018-08-11] MEDS ORDERED: MEPERIDINE 25 MG INJ IV PRN (09:30)
[2018-08-11] MEDS ORDERED: ONDANSETRON 4 MG INJ IV PRN (09:30)
[2018-08-11] MEDS ORDERED: FENTAnyl 50 MCG/ML VIAL IV PRN (09:30)
--- NOTE | 2018-08-11 09:31 | PAC ---
Date/Time of Note Date/Time of Note DATE: 08/11/18 TIME: 09:30 Post-Anesthesia Notes Post-Anesthesia Note Last documented vital signs Vital Signs Date Temp Pulse Resp B/P (MAP) Pulse Ox O2 O2 Flow FiO2 Time Delivery Rate 08/11/18 70 14 100 100 07:15 08/11/18 98.1 165/64 04:00 (97) 08/10/18 Trach 16:00 Collar Activity: WNL Respiratory function: Other (on Vent 550/14/ 70%, PEEP:5) Cardiovascular function: WNL Mental status: Baseline Pain reasonably controlled: Yes Hydration appropriate: Yes Nausea/Vomiting absent: Yes Comments BP:134/67, P:98, Spo2:100%, T:98,9 SOFÍA CHAUDHARI MD Aug 11, 2018 09:31
--- NOTE | 2018-08-11 09:32 | PN ---
DATE: 08/11/2018 SUBJECTIVE: The patient is stable. The patient is scheduled for surgery today, decortication. No o ther events noted. OBJECTIVE: VITAL SIGNS: Blood pressure is 165/64, respiration 19, pulse 73, temperature 98.1. HEENT: Head is normocephalic. NECK: Supple. HEART: Regular rate. LUNGS: Show diminished breath sounds at the base. ABDOMEN: Soft, nontender to palpation without rebound or guarding. EXTREMITIES: Negative for clubbing, cyanosis. Positive edema. DERMATOLOGIC: No rashes. MUSCULOSKELETAL: No joint effusions. NEUROLOGIC: No change in exam. MEDICATIONS: The patient's medications have been reviewed. LABORATORY DATA: Has been reviewed. ASSESSMENT AND PLAN: 1. Chronic kidney disease with baseline creatinine between 2.2 and 2.3 mg/dL. The patient's renal f unction is currently at baseline. Continue to monitor. Continue disease factor modification. 2. Volume overload. Etiology secondary to acute diastolic heart failure, cirrhosis. Continue curre nt diuretic regimen. Monitor electrolytes and renal function closely. 3. Mineral bone disorder, monitor calcium and phosphorus levels. 4. Anemia. Monitor hemoglobin and hematocrit levels. 5. Ventilatory dependent respiratory failure. Vent settings and ABG was reviewed. Continue to rianna tor. 6. Right lung opacification. The patient is pending decortication. Follow up with surgery. 7. Paroxysmal atrial fibrillation. Continue medical management. 8. Diabetes. Continue current insulin regimen. 9. Sepsis. Patient is completing an antibiotic course. 10. Cirrhosis. Continue medical management. Dictated By: LORY KAY DO NR/NTS Conf#: [id number] DID#: [id number] CC: VARSHA PEARSON MD; JEIMY LOMAS; NATALIE ALAN MD;*EndCC*
[2018-08-11] MEDS: morphine 2 MG INJ IV PRN ×3 (09:51→17:45)
--- NOTE | 2018-08-11 09:53 | CONS ---
Consult Date/Type/Reason Admit Date/Time Aug 02, 2018 at 22:00 Initial Consult Date 08/03/18 Requesting Provider: DEJUAN ORTIZ MD, [facility] Date/Time of Note DATE: 08/11/18 TIME: 09:47 Subjective Patient just back from the OR to the ICU s/p right thoracotomy with possible flap. Sedated and tachycardic on the vent. Objective Vitals Vital Signs Date Temp Pulse Resp B/P (MAP) Pulse Ox O2 O2 Flow FiO2 Time Delivery Rate 08/11/18 98.0 09:33 08/11/18 70 14 100 100 07:15 08/11/18 165/64 04:00 (97) 08/10/18 Trach 16:00 Collar Intake and Output 08/10/18 08/10/18 08/11/18 1515:00 23:00 07:00 IntakeIntake Total 960 ml 400 ml OutputOutput Total 1500 ml 2000 ml BalanceBalance -540 ml -1600 ml Exam HEENT: Neck supple; no JVD; no LAD; + trach CVS: Tachy, S1 and S2 CHEST: Diminished R breath sounds ABD: Soft, NT, + BS EXT: No c/c; + edema Results/Medications Result Diagram: 08/11/18 0639 08/11/18 0639 Results 24 hrs Laboratory Tests Test 08/10/18 09:52 08/10/18 10:44 08/10/18 11:50 08/10/18 17:27 Lab Scanned REFERENCE LAB REFERENCE LAB Report Bedside Glucose 102 94 Test 08/10/18 20:58 08/11/18 06:39 08/11/18 07:24 Bedside Glucose 144 108 White Blood 8.5 Count Red Blood Count 3.17 L Hemoglobin 8.1 L Hematocrit 26.0 L Mean Corpuscular 82.0 Volume Mean Corpuscular 25.6 L Hemoglobin Mean Corpuscular 31.2 L Hemoglobin Dorene nt Red Cell 18.1 H Distribution Width Platelet Count 161 Mean Platelet 9.0 Volume Immature 1.200 H Granulocytes % Neutrophils % 70.5 Lymphocytes % 14.5 L Monocytes % 10.7 Eosinophils % 2.5 Basophils % 0.6 Nucleated Red 0.0 Blood Cells % Immature 0.100 H Granulocytes # Neutrophils # 6.0 Lymphocytes # 1.2 Monocytes # 0.9 Eosinophils # 0.2 Basophils # 0.1 Nucleated Red 0.0 Blood Cells # Sodium Level 139 Potassium Level 4.1 Chloride Level 106 Carbon Dioxide 28 Level Anion Gap 5 Blood Urea 24 H Nitrogen Creatinine 2.06 H Est Glomerular 32 L Filtrat Rate mL/min Glucose Level 87 Calcium Level 8.5 Phosphorus Level 5.2 H Magnesium Level 2.0 Home Meds Reported Medications Amlodipine Besylate* (Amlodipine Besylate*) 2.5 Mg Tablet, 5 MG PO DAILY, #30 TAB 08/03/18 Acetylcysteine* (Mucomyst*) 4 Ml Soln, 2 ML NEB Q8, EA 08/03/18 Sodium Ferric Gluconate Complx (FERRLECIT 62.5 MG/5 ML VIAL) 62.5 Mg/5 Ml Soln, 125 MG IV DAILY 08/03/18 Loratadine (Loratadine) 10 Mg Capsule, 10 MG PO DAILY, CAP 08/03/18 Nystatin* (Nystatin*) 15 Gm Cr, 1 APPLIC TOP BID, #1 TUB 08/03/18 Metoprolol Tartrate* (Lopressor*) 25 Mg Tablet, 25 MG PO BID, #60 TAB 08/03/18 Linezolid* (Zyvox*) 600 Mg Tablet, 600 MG PO BID, TAB 08/03/18 Linagliptin (TRADJENTA) 5 Mg Tablet, 5 MG PO DAILY, TAB 08/03/18 Fluconazole* (Fluconazole*) 100 Mg Tablet, 100 MG PO DAILY, TAB 08/03/18 Amikacin Sulfate* (Amikacin* Pediatric IV Syringe) 5 Mg/Ml Soln, 400 MG IV q48hr, EA 08/03/18 Insulin Aspart* (Novolog Insulin Pen*) 100 Unit/Ml Soln, 0 SC .SLIDING SCALE AC, EA OR 5 UNITS AC MEALS TID 07/18/18 Insulin Glargine,Hum.rec.anlog (Basaglar Kwikpen U-100) 100 Unit/1 Ml Insuln.p en, 28 UNIT SC QHS, EA 07/18/18 Insulin Glargine,Hum.rec.anlog (Basaglar Kwikpen U-100) 100 Unit/1 Ml Insuln.pen, 18 UNIT SC QAM, EA 07/18/18 Acetaminophen* (Acetaminophen*) 500 MG Extra Strength Tablet, 1000 MG PO Q8H PRN for PAIN, TAB 07/18/18 Acetaminophen* (Tylenol*) 325 Mg Tablet, 650 MG PO Q4H PRN for MILD PAIN LEVEL 1-3, TAB AND FEVER 07/18/18 Ascorbic Acid (Vitamin C) 500 Mg Tab, 500 MG PO DAILY, TAB 07/18/18 Lorazepam* (Lorazepam*) 1 Mg Tablet, 1 MG PO Q6 PRN for ANXIETY, #60 TAB 07/18/18 Sucralfate* (Carafate*) 1 Gm Tab, 1 GM PO AC MEALS AND BEDTIME, TAB 07/18/18 Rivaroxaban* (Xarelto*) 15 Mg Tablet, 15 MG PO WITH DINNER, TAB 07/18/18 Multivitamin with Minerals (Multivitamins with Minerals) 1 Each Tablet, 1 EACH PO DAILY, TAB 07/18/18 Pantoprazole* (Pantoprazole*) 40 Mg Tablet.dr, 40 MG PO AC BREAKFAST, TAB 07/18/18 Polyethylene Glycol* (Miralax*) 17 Gm Powd.pack, 17 GM PO DAILY, #30 PACKET 07/18/18 Ferrous Sulfate* (Ferrous Sulfate*) 325 Mg Tabec, 325 MG PO DAILY, TAB 07/18/18 Digoxin* (Digitek*) 250 Mcg Tablet, 0.25 MG PO DAILY, TAB HOLD IF HR<60 07/18/18 Cranberry Fruit (CRANBERRY) 450 Mg Tablet, 450 MG PO DAILY, TAB 07/18/18 Chlorhexidine Gluconate (Peridex) 473 Ml Mouthwash, 15 ML MM Q12H, BOTTLE 07/18/18 Ipratropium-Albuterol (Ipratropium-Albuterol) 0.5-3 Mg/3 Ml Ampul.neb, 3 ML INHALATION Q4H PRN for VIA TRACHEOSTOMY, #30 VIAL 07/18/18 Albuterol Sulfate* (Albuterol Sulfate* Neb) 0.083%-3 Ml Neb, 2.5 MG NEB Q4H PRN for TRACHEOSTOMY, #30 VIAL AND Q6H NEEDED 07/18/18 Medications Current Medications IV Flush (NS 3 ml) 3 ml PER PROTOCOL IV ; Start 08/03/18 at 00:00 Ondansetron HCl (Zofran Inj) 4 mg Q6H PRN IV NAUSEA/VOMITING Last administered on 08/03/18at 03:48; Admin Dose 4 MG; Start 08/03/18 at 00:00 Nitroglycerin (Nitroglycerin (Sl Tab) 0.4 Mg) 1 tab Q5M PRN SL .CHEST PAIN; Start 08/03/18 at 00:00 Acetaminophen (Tylenol Tab) 650 mg Q6H PRN PO .PAIN 1-3 OR TEMP Last administered on 08/04/18 03:49; Admin Dose 650 MG; Start 08/03/18 at 00:00 Morphine Sulfate (morphine) 2 mg Q4H PRN IV .PAIN 7-10 Last administered on 08/10/18 22:08; Admin Dose 2 MG; Start 08/03/18 at 00:00 Docusate Sodium (Colace) 100 mg Q12H PRN PO .CONSTIPATION; Start 08/03/18 at 00:00 Bisacodyl (Dulcolax) 5 mg DAILY PRN PO .CONSTIPATION; Start 08/03/18 at 00:00 Ascorbic Acid (Vitamin C) 500 mg DAILY PO Last administered on 08/10/18 09:03; Admin Dose 500 MG; Start 08/03/18 at 09:00 Chlorhexidine Gluconate (Peridex) 15 ml Q12H MM Last administered on 08/09/18 11:38; Admin Dose 15 ML; Start 08/03/18 at 00:00 Ferrous Sulfate (Ferrous Sulfate (Ec)) 325 mg DAILY PO Last administered on 08/10/18 09:03; Admin Dose 325 MG; Start 08/03/18 at 09:00 Pantoprazole (Protonix Tab) 40 mg AC BREAKFAST PO Last administered on 08/10/18 09:03; Admin Dose 40 MG; Start 08/03/18 at 07:25 Sucralfate (Carafate) 1 gm AC MEALS AND BEDTIME PO Last administered on 08/10/18 21:00; Admin Dose 1 GM; Start 08/03/18 at 07:25 Albuterol (Proventil 0.083% (Neb)) 2.5 mg Q4H RESP THERAPY PRN NEB TRACHEOSTOMY Last administered on 08/08/18 15:37; Admin Dose 2.5 MG; Start 08/02/18 at 23:45 Multivitamins/ Minerals (Theragran-M) 1 tab DAILY PO Last administered on 08/10/18 09:04; Admin Dose 1 TAB; Start 08/03/18 at 09:00 Miscellaneous Information 1 ea NOTE XX ; Start 08/02/18 at 23:45 Glucose (Glutose) 15 gm Q15M PRN PO DECREASED GLUCOSE; Start 08/02/18 at 23:45 Glucose (Glutose) 22.5 gm Q15M PRN PO DECREASED GLUCOSE; Start 08/02/18 at 23:45 Dextrose (D50w Syringe) 25 ml Q15M PRN IV DECREASED GLUCOSE; Start 08/02/18 at 23:45 Dextrose (D50w Syringe) 50 ml Q15M PRN IV DECREASED GLUCOSE; Start 08/02/18 at 23:45 Glucagon (Glucagen) 1 mg Q15M PRN IM DECREASED GLUCOSE; Start 08/02/18 at 23:45 Glucose (Glutose) 15 gm Q15M PRN BUCCAL DECREASED GLUCOSE; Start 08/02/18 at 23:45 Simethicone (Mylicon) 80 mg Q8H PRN PO DISTENSION/GAS/BLOATING Last administered on 08/04/18at 01:55; Admin Dose 80 MG; Start 08/03/18 at 04:30 Amlodipine Besylate (Norvasc) 5 mg DAILY PO Last administered on 08/10/18 09:04; Admin Dose 5 MG; Start 08/03/18 at 09:00 Fluconazole (Diflucan) 100 mg DAILY PO Last administered on 08/10/18 09:03; Admin Dose 100 MG; Start 08/03/18 at 09:00 Linezolid (Zyvox) 600 mg BID PO Last administered on 08/10/18 20:59; Admin Dose 600 MG; Start 08/03/18 at 09:00 Amikacin Sulfate (Amikacin Iv Per Pharmacy) AMIKACIN PER PHARMACY NOTE XX ; Start 08/03/18 at 11:30 Insulin Aspart (Novolog Insulin Pen) NOVOLOG *MILD* ALGORI... AC MEALS AND BEDTIME SC Last administered on 08/08/18 11:55; Admin Dose 2 UNIT; Start 08/03/18 at 17:25 Linagliptin (Tradjenta) 5 mg DAILY PO Last administered on 08/10/18 09:10; Admin Dose 5 MG; Start 08/04/18 at 09:00 Diagnostic Test (Pha) (Accu-Chek) 1 ea 02 XX Last administered on 08/05/18 01:28; Admin Dose 1 EA; Start 08/04/18 at 02:00 Insulin Aspart (Novolog Insulin Pen) 10 unit WITH MEALS SC Last administered on 08/10/18 17:44; Admin Dose 10 UNIT; Start 08/03/18 at 17:55 Acetylcysteine (Mucomyst) 2 ml Q8H RESP THERAPY NEB Last administered on 08/10/18 15:22; Admin Dose 2 ML; Start 08/04/18 at 08:00 Collagenase (Santyl) 1 applic DAILY TOP Last administered on 08/10/18 09:05; Admin Dose 1 APPLIC; Start 08/04/18 at 09:00 Amikacin Sulfate 500 mg/Sodium Chloride 102 ml @ 101.6 mls/ hr Q48H IVPB Last administered on 08/09/18 20:13; Admin Dose 101.6 MLS/HR; Start 08/05/18 at 20:00 Diphenhydramine HCl (Benadryl) 25 mg Q6H PRN IV rash or itching Last administered on 08/10/18 22:22; Admin Dose 25 MG; Start 08/05/18 at 11:00 Metoprolol Tartrate (Lopressor) 25 mg BID PO Last administered on 08/10/18 21:00; Admin Dose 25 MG; Start 08/06/18 at 13:30 Insulin Glargine (Lantus) 18 units DAILY@2000 SC Last administered on 08/10/18 21:22; Admin Dose 18 UNITS; Start 08/07/18 at 20:00 Nystatin (Nystatin Powder) 1 applic BID TOP Last administered on 08/10/18 21:01; Admin Dose 1 APPLIC; Start 08/08/18 at 12:30 Enoxaparin Sodium (Lovenox) 30 mg Q24H SC Last administered on 08/09/18 11:42; Admin Dose 30 MG; Start 08/08/18 at 12:30; Status Hold Enoxaparin Sodium (Lovenox) 80 mg Q24H SC Last administered on 08/09/18 11:41; Admin Dose 80 MG; Start 08/08/18 at 12:30; Status Hold Furosemide (Lasix) 40 mg BID IV Last administered on 4/26/19at 20:59; Admin Dose 40 MG; Start 08/09/18 at 09:00 Digoxin (Digoxin) 0.125 mg DAILY@13 PO Last administered on 08/10/18at 14:18; Admin Dose 0.125 MG; Start 08/10/18 at 13:00 Morphine Sulfate (morphine (REC)) 2 mg PACU ORDER PRN IV MILD PAIN 1-3; Start 08/11/18 at 09:30; Stop 08/11/18 at 15:00 Morphine Sulfate (morphine (REC)) 4 mg PACU ORDER PRN IV MOD PAIN 4-6; Start 08/11/18 at 09:30; Stop 08/11/18 at 15:00 Fentanyl (Sublimaze) 25 mcg PACU ORDER PRN IV MILD PAIN 1-3; Start 08/11/18 at 09:30; Stop 08/11/18 at 15:00 Ondansetron HCl (Zofran Inj) 4 mg PACU ORDER PRN IV NAUSEA/VOMITING; Start 08/11/18 at 09:30; Stop 08/11/18 at 15:00 Meperidine HCl (Demerol) 25 mg PACU ORDER PRN IV .RIGORS; Start 08/11/18 at 09:30; Stop 08/11/18 at 15:00 Diphenhydramine HCl (Benadryl) 25 mg PACU ORDER PRN IV .PRURITUS; Start 08/11/18 at 09:30; Stop 08/11/18 at 15:00 Assessment/Plan Assessment/Plan (Daily) IMP: 1. Right Empyema thoracic--s/p thoracotomy and decortication. Op note not yet available. Query flap/[place] 2. VDRF 3. CKD 4. Volume Overload 5. Sepsis 6. Cirrhosis RECS: 1. Vent support 2. Will assess fluid balance and pain given tachycardia 3. Continue antibiotics 4. Post-op wound care 5. Obtain ABG on current vent settings 6. Am labs/CXR 40 min cc time SEAN GUTHRIE MD Aug 11, 2018 09:53
--- NOTE | 2018-08-11 10:02 | OPR ---
DATE OF OPERATION: 08/11/2018 PREOPERATIVE DIAGNOSIS: Right empyema. POSTOPERATIVE DIAGNOSIS: Right empyema. PROCEDURE: Right thoracotomy, partial decortication of the lower lobe, and Eloesser flap creation. SURGEON: Natalie Barnard MD [employer] PRESERVATION INSPECTOR: MELLISSA Mancera ANESTHESIOLOGIST: Dr. Marshall. ANESTHESIA: General endotracheal. COMPLICATIONS: None. FINDINGS: He had extensive amount of pus and fibrinous material in the right lateral inferior chest. His lung was fixed and did not ventilate with aggressive anesthetic expansion. Therefore, we felt that the Eloesser flap was the most appropriate procedure for this chronically debilitated vent patie nt. INDICATION: The patient is a 68-year-old male, chronically ventilated, who had pigtail catheters hilary john, and a significant amount of purulent material was draining. We were asked to see him regarding decortication. Risks, benefits and alternatives were explained to the patient. He understood and co nsented. DESCRIPTION OF PROCEDURE: The patient was brought to the operating room. He was placed in supine po sition. He had an arterial line placed. He was then turned right side up. He was prepped and drape d in the usual sterile fashion. A posterolateral thoracotomy incision was made. We entered the ches t around the seventh interspace. Upon entering the chest, there were dense adhesions and a lot of pu s and fibrinous material which was removed. The lung was fixed and nonventilatory. It had a thick p eel. At this point, we decided to proceed with an Eloesser flap. We resected part of the 7th rib an d created a skin flap and sewed the skin flap to the tissue above the 7th rib using 0 Vicryl suture. We then packed the wound using 3 separate Kerlix tied together. Once this was done, dressings were applied. The patient was placed supine and taken to the recovery room in stable condition. Dictated By: NATALIE WINTERS/XAVIER Conf#: [id number] DID#: [id number] CC: VARSHA PEARSON MD;*EndCC*
[2018-08-11] MEDS ORDERED: morphine 2 MG INJ IV PRN (11:25)
[2018-08-11] MEDS: morphine 4 MG/ML VIAL IV PRN ×2 (11:40→12:15)
--- NOTE | 2018-08-11 13:13 | PN ---
Date/Time of Note Date/Time of Note DATE: 08/11/18 TIME: 13:08 Assessment/Plan VTE Prophylaxis Risk score (from Ns)>0 risk: 12 SCD applied (from Ns): No SCD contraindicated: other Pharmacological prophylaxis: NA/contraindicated Pharm contraindication: surgical contra Lines/Catheters [facility] Mid Line Urinary Cath still in place: No Assessment/Plan Hospital Course S: Pt had surgical procedure performed earlier this morning by cardio thoracic surgery team, specifically right thoracotomy, partial decortication of the lower lobe, and Eloesser flap creation. O: VS- see below PE: General: Obese man lying in bed, trach HEENT: Atraumatic, normocephalic. Neck: trach to vent Lungs: Mechanical, some coarse breath sounds throughout, chest tubes in place Heart: Normal S1-S2, Regular rhythm and rate. No murmur, S3, or S4 Abdomen: Soft , obese, nontender, nondistended , bowel sounds are present. Extremities: 1+ bilateral lower extremity edema Neurologic: awake, alert. Able to talk with deflated cuff. Skin: Raised, erythematous macular rash across abdomen Assessment/Plan: 68-year-old man with a past medical history of chronic respiratory failure status post trach, who was transferred from [facility] to [facility] for evaluation of loculated empyema ad possible VATS. The patient was a previous resident of [facility], was noted to have a loculated fluid effusion. The patient, after attempted bronchoscopy and post chest-tube without improvement of loculated fluid was subsequently transferred to [facility] for surgical evaluation. #1 acute on chronic hypoxemic and hypercarbic respiratory failure-Patient is on chronic ventilatory support via trach. Again after getting pigtail catheter few days ago, patient is status post right thoracotomy, partial decortication of the lower lobe, and Eloesser flap creation earlier today. -Continue vent management as per pulmonary and cardiothoracic surgery team, antibiotics as ordered by ID team #2 Right pulmonary opacification plus infiltrates-Suspicion likely for large loculated thick pleural effusion, loculated empyema s/p failed bronchoscopy and chest tube prior to admission, but again did receive pigtail catheter x2 4 days ago with purulent/pus drainage. Again despite that, patient is now status post right thoracotomy, partial decortication of the lower lobe, and Eloesser flap creation earlier today. -Continue broad-spectrum antibiotics of Zyvox, fluconazole, as well as amikacin. ID consulted -Follow-up postoperative recommendations from pulmonary and cardiothoracic surgery teams. #3 Paroxysmal atrial fibrillation-Currently in sinus rhythm, has been having some PVCs the last few days. - Continue to monitor. - Xarelto on hold at the current time, was switched to Lovenox earlier this admission, holding now given the bleeding seen from the chest tube site yesterday as well as because of the surgical procedure that occurred earlier this morning. Consider restarting in the next 1 to 2 days when okay with cardiothoracic surgery team #4 anemia of chronic disease: Patient received PRBC transfusion 7 days ago, hemoglobin presently stable -Monitor, transfuse for Hgb<7 or for symptomatic anemia #5 Chronic kidney disease stage III r/o FROILAN: Creatinine appears to be at baseline in the low 2 range -nephro consulted, f/u trend and recommendations #6 diabetes mellitus: A1c was 8.6, sugars are stable -Monitor sugars #7 diastolic CHF - chronic with bilateral lower extremity edema-may also be related to anasarca from #8 -Monitor for now #8 Hepatic cirrhosis-Chest CT shows possible liver cirrhosis confirmed on USS. -Monitor, f/u hepatitis serologies. #9 DVT GI prophylaxis: lovenox, Protonix Critical care time spent in patient care today equals 45 minutes. Result Diagram: 08/11/18 0639 08/11/18 0639 Results 24hrs Laboratory Tests Test 08/10/18 17:27 08/10/18 20:58 08/11/18 06:39 08/11/18 07:24 Bedside Glucose 94 144 108 White Blood Count 8.5 Red Blood Count 3.17 L Hemoglobin 8.1 L Hematocrit 26.0 L Mean Corpuscular 82.0 Volume Mean Corpuscular 25.6 L Hemoglobin Mean Corpuscular 31.2 L Hemoglobin Concen t Red Cell 18.1 H Distribution Width Platelet Count 161 Mean Platelet 9.0 Volume Immature 1.200 H Granulocytes % Neutrophils % 70.5 Lymphocytes % 14.5 L Monocytes % 10.7 Eosinophils % 2.5 Basophils % 0.6 Nucleated Red 0.0 Blood Cells % Immature 0.100 H Granulocytes # Neutrophils # 6.0 Lymphocytes # 1.2 Monocytes # 0.9 Eosinophils # 0.2 Basophils # 0.1 Nucleated Red 0.0 Blood Cells # Sodium Level 139 Potassium Level 4.1 Chloride Level 106 Carbon Dioxide 28 Level Anion Gap 5 Blood Urea 24 H Nitrogen Creatinine 2.06 H Est Glomerular 32 L Filtrat Rate mL/min Glucose Level 87 Calcium Level 8.5 Phosphorus Level 5.2 H Magnesium Level 2.0 Test 08/11/18 09:53 08/11/18 10:29 08/11/18 11:55 Blood Gas Blood arterial Specimen Source Arterial Blood 08/11/2018 10:00: Date Drawn 51 AM Arterial Blood pH 7.341 L (Temp corrected) Arterial Blood 49.9 H pCO2 (Temp correct) Arterial Blood 141.3 H pO2 (Temp corrected) Arterial Blood 26.4 H HCO3 Arterial Blood 0.3 Base Excess Arterial Blood 98.5 H Oxygen Saturation Mikey Test N/A Arterial Blood A-Line Gas Puncture Site Arterial 0.1 Blood Carboxyhemo globin Arterial Blood 0.4 Methemoglobin Blood Gas A-a O2 304.2 H Differential Oxyhemoglobin 98.0 Percent Blood Gas 37.0 Temperature Blood Gas 18.0 Respiration Rate Blood Gas Actual 18 Respiration Rate Blood Gas VENT - AC Modality FiO2 70.0 Blood Gas Tidal 500.0 Volume Blood Gas High 5.0 PEEP Setting Blood Gas R GALAN RN Critical Value Read Back Blood Gas T [facility] Notified Whom Blood Gas 08/11/2018 10:09: Notified Time 01 AM Bedside Glucose 173 184 Exam/Review of Systems Exam Vitals Vital Signs Date Temp Pulse Resp B/P (MAP) Pulse Ox O2 O2 Flow FiO2 Time Delivery Rate 08/11/18 101 18 100 40 12:37 08/11/18 142/71 11:15 (94) 08/11/18 Mechanical 11:00 Ventilator 08/11/18 97.7 09:45 Intake and Output 08/10/18 08/10/18 08/11/18 1515:00 23:00 07:00 IntakeIntake Total 960 ml 400 ml OutputOutput Total 1500 ml 2000 ml BalanceBalance -540 ml -1600 ml Results Results 24hrs Laboratory Tests Test 08/10/18 17:27 08/10/18 20:58 08/11/18 06:39 08/11/18 07:24 Bedside Glucose 94 144 108 White Blood Count 8.5 Red Blood Count 3.17 L Hemoglobin 8.1 L Hematocrit 26.0 L Mean Corpuscular 82.0 Volume Mean Corpuscular 25.6 L Hemoglobin Mean Corpuscular 31.2 L Hemoglobin Concen t Red Cell 18.1 H Distribution Width Platelet Count 161 Mean Platelet 9.0 Volume Immature 1.200 H Granulocytes % Neutrophils % 70.5 Lymphocytes % 14.5 L Monocytes % 10.7 Eosinophils % 2.5 Basophils % 0.6 Nucleated Red 0.0 Blood Cells % Immature 0.100 H Granulocytes # Neutrophils # 6.0 Lymphocytes # 1.2 Monocytes # 0.9 Eosinophils # 0.2 Basophils # 0.1 Nucleated Red 0.0 Blood Cells # Sodium Level 139 Potassium Level 4.1 Chloride Level 106 Carbon Dioxide 28 Level Anion Gap 5 Blood Urea 24 H Nitrogen Creatinine 2.06 H Est Glomerular 32 L Filtrat Rate mL/min Glucose Level 87 Calcium Level 8.5 Phosphorus Level 5.2 H Magnesium Level 2.0 Test 08/11/18 09:53 08/11/18 10:29 08/11/18 11:55 Blood Gas Blood arterial Specimen Source Arterial Blood 08/11/2018 10:00: Date Drawn 51 AM Arterial Blood pH 7.341 L (Temp corrected) Arterial Blood 49.9 H pCO2 (Temp correct) Arterial Blood 141.3 H pO2 (Temp corrected) Arterial Blood 26.4 H HCO3 Arterial Blood 0.3 Base Excess Arterial Blood 98.5 H Oxygen Saturation Mikey Test N/A Arterial Blood A-Line Gas Puncture Site Arterial 0.1 Blood Carboxyhemo globin Arterial Blood 0.4 Methemoglobin Blood Gas A-a O2 304.2 H Differential Oxyhemoglobin 98.0 Percent Blood Gas 37.0 Temperature Blood Gas 18.0 Respiration Rate Blood Gas Actual 18 Respiration Rate Blood Gas VENT - AC Modality FiO2 70.0 Blood Gas Tidal 500.0 Volume Blood Gas High 5.0 PEEP Setting Blood Gas R ADAMA RN Critical Value Read Back Blood Gas T FRANCIA [employer] Notified Whom Blood Gas 08/11/2018 10:09: Notified Time 01 AM Bedside Glucose 173 184 Medications Medication Current Medications IV Flush (NS 3 ml) 3 ml PER PROTOCOL IV ; Start 08/03/18 at 00:00 Ondansetron HCl (Zofran Inj) 4 mg Q6H PRN IV NAUSEA/VOMITING Last administered on 08/03/18at 03:48; Admin Dose 4 MG; Start 08/03/18 at 00:00 Nitroglycerin (Nitroglycerin (Sl Tab) 0.4 Mg) 1 tab Q5M PRN SL .CHEST PAIN; Start 08/03/18 at 00:00 Acetaminophen (Tylenol Tab) 650 mg Q6H PRN PO .PAIN 1-3 OR TEMP Last administered on 08/04/18 03:49; Admin Dose 650 MG; Start 08/03/18 at 00:00 Morphine Sulfate (morphine) 2 mg Q4H PRN IV .PAIN 7-10 Last administered on 08/11/18 09:51; Admin Dose 2 MG; Start 08/03/18 at 00:00 Docusate Sodium (Colace) 100 mg Q12H PRN PO .CONSTIPATION; Start 08/03/18 at 00:00 Bisacodyl (Dulcolax) 5 mg DAILY PRN PO .CONSTIPATION; Start 08/03/18 at 00:00 Ascorbic Acid (Vitamin C) 500 mg DAILY PO Last administered on 08/10/18 09:03; Admin Dose 500 MG; Start 08/03/18 at 09:00 Chlorhexidine Gluconate (Peridex) 15 ml Q12H MM Last administered on 08/09/18 11:38; Admin Dose 15 ML; Start 08/03/18 at 00:00 Ferrous Sulfate (Ferrous Sulfate (Ec)) 325 mg DAILY PO Last administered on 08/10/18 09:03; Admin Dose 325 MG; Start 08/03/18 at 09:00 Pantoprazole (Protonix Tab) 40 mg AC BREAKFAST PO Last administered on 08/10/18 09:03; Admin Dose 40 MG; Start 08/03/18 at 07:25 Sucralfate (Carafate) 1 gm AC MEALS AND BEDTIME PO Last administered on 08/11/18 11:50; Admin Dose 1 GM; Start 08/03/18 at 07:25 Albuterol (Proventil 0.083% (Neb)) 2.5 mg Q4H RESP THERAPY PRN NEB TRACHEOSTOMY Last administered on 08/08/18 15:37; Admin Dose 2.5 MG; Start 08/02/18 at 23:45 Multivitamins/ Minerals (Theragran-M) 1 tab DAILY PO Last administered on 08/10/18 09:04; Admin Dose 1 TAB; Start 08/03/18 at 09:00 Miscellaneous Information 1 ea NOTE XX ; Start 08/02/18 at 23:45 Glucose (Glutose) 15 gm Q15M PRN PO DECREASED GLUCOSE; Start 08/02/18 at 23:45 Glucose (Glutose) 22.5 gm Q15M PRN PO DECREASED GLUCOSE; Start 08/02/18 at 23:45 Dextrose (D50w Syringe) 25 ml Q15M PRN IV DECREASED GLUCOSE; Start 08/02/18 at 23:45 Dextrose (D50w Syringe) 50 ml Q15M PRN IV DECREASED GLUCOSE; Start 08/02/18 at 23:45 Glucagon (Glucagen) 1 mg Q15M PRN IM DECREASED GLUCOSE; Start 08/02/18 at 23:45 Glucose (Glutose) 15 gm Q15M PRN BUCCAL DECREASED GLUCOSE; Start 08/02/18 at 23:45 Simethicone (Mylicon) 80 mg Q8H PRN PO DISTENSION/GAS/BLOATING Last administered on 08/04/18at 01:55; Admin Dose 80 MG; Start 08/03/18 at 04:30 Amlodipine Besylate (Norvasc) 5 mg DAILY PO Last administered on 08/11/18 11:50; Admin Dose 5 MG; Start 08/03/18 at 09:00 Fluconazole (Diflucan) 100 mg DAILY PO Last administered on 08/10/18 09:03; Admin Dose 100 MG; Start 08/03/18 at 09:00 Linezolid (Zyvox) 600 mg BID PO Last administered on 08/10/18 20:59; Admin Dos e 600 MG; Start 08/03/18 at 09:00 Amikacin Sulfate (Amikacin Iv Per Pharmacy) AMIKACIN PER PHARMACY NOTE XX ; Start 08/03/18 at 11:30 Insulin Aspart (Novolog Insulin Pen) NOVOLOG *MILD* ALGORI... AC MEALS AND BEDTIME SC Last administered on 08/11/18 12:33; Admin Dose 2 UNIT; Start 08/03/18 at 17:25 Linagliptin (Tradjenta) 5 mg DAILY PO Last administered on 08/10/18 09:10; Admin Dose 5 MG; Start 08/04/18 at 09:00 Diagnostic Test (Pha) (Accu-Chek) 1 ea 02 XX Last administered on 08/05/18 01 :28; Admin Dose 1 EA; Start 08/04/18 at 02:00 Insulin Aspart (Novolog Insulin Pen) 10 unit WITH MEALS SC Last administered on 08/10/18 17:44; Admin Dose 10 UNIT; Start 08/03/18 at 17:55 Acetylcysteine (Mucomyst) 2 ml Q8H RESP THERAPY NEB Last administered on 08/10/18 15:22; Admin Dose 2 ML; Start 08/04/18 at 08:00 Collagenase (Santyl) 1 applic DAILY TOP Last administered on 08/10/18 09:05; Admin Dose 1 APPLIC; Start 08/04/18 at 09:00 Amikacin Sulfate 500 mg/Sodium Chloride 102 ml @ 101.6 mls/ hr Q48H IVPB Last administered on 08/09/18 20:13; Admin Dose 101.6 MLS/HR; Start 08/05/18 at 20:00 Diphenhydramine HCl (Benadryl) 25 mg Q6H PRN IV rash or itching Last administered on 08/10/18 22:22; Admin Dose 25 MG; Start 08/05/18 at 11:00 Metoprolol Tartrate (Lopressor) 25 mg BID PO Last administered on 08/10/18 21:00; Admin Dose 25 MG; Start 08/06/18 at 13:30 Insulin Glargine (Lantus) 18 units DAILY@2000 SC Last administered on 08/10/18 21:22; Admin Dose 18 UNITS; Start 08/07/18 at 20:00 Nystatin (Nystatin Powder) 1 applic BID TOP Last administered on 08/10/18 21:01; Admin Dose 1 APPLIC; Start 08/08/18 at 12:30 Enoxaparin Sodium (Lovenox) 30 mg Q24H SC Last administered on 08/09/18 11:42; Admin Dose 30 MG; Start 08/08/18 at 12:30; Status Hold Enoxaparin Sodium (Lovenox) 80 mg Q24H SC Last administered on 08/09/18 11:41; Admin Dose 80 MG; Start 08/08/18 at 12:30; Status Hold Furosemide (Lasix) 40 mg BID IV Last administered on 08/10/18 20:59; Admin Dose 40 MG; Start 08/09/18 at 09:00 Digoxin (Digoxin) 0.125 mg DAILY@13 PO Last administered on 08/10/18 14:18; Admin Dose 0.125 MG; Start 08/10/18 at 13:00 Fentanyl (Sublimaze) 25 mcg PACU ORDER PRN IV MILD PAIN 1-3 Last administered on 08/11/18 10:21; Admin Dose 25 MCG; Start 08/11/18 at 09:30; Stop 08/11/18 at 15:00 Ondansetron HCl (Zofran Inj) 4 mg PACU ORDER PRN IV NAUSEA/VOMITING Last administered on 08/11/18 11:50; Admin Dose 4 MG; Start 08/11/18 at 09:30; Stop 08/11/18 at 15:00 Meperidine HCl (Demerol) 25 mg PACU ORDER PRN IV .RIGORS; Start 08/11/18 at 09:30; Stop 08/11/18 at 15:00 Diphenhydramine HCl (Benadryl) 25 mg PACU ORDER PRN IV .PRURITUS; Start 08/11/18 at 09:30; Stop 08/11/18 at 15:00 Morphine Sulfate (morphine) 2 mg PACU ORDER PRN IV MILD PAIN 1-3; Start 08/11/18 at 11:25; Stop 08/11/18 at 15:00 Morphine Sulfate (morphine) 4 mg PACU ORDER PRN IV MOD PAIN 4-6 Last administere d on 08/11/18at 12:15; Admin Dose 4 MG; Start 08/11/18 at 11:27; Stop 08/11/18 at 15:00 JEIMY LOMAS Aug 11, 2018 13:13
[2018-08-11] MEDS: DIGOXIN 0.125 MG TAB PO SCH (14:40)
[2018-08-11] MEDS: CHLORHEXIDINE GLUCONATE 15 ML UD CUP MM SCH ×2 (14:40→23:53)
[2018-08-11] MEDS: ALBUTEROL 0.083% (NEB) 2.5 MG/3 ML AMP NEB PRN (15:06)
--- NOTE | 2018-08-11 15:58 | CONS ---
Assessment/Plan Assessment/Plan Hospital Course (Demo Recall) ID PROGRESS NOTE CURRENT ABX=Day # => Amikacin + Zyvox + Diflucan 08/11/18 1500 08/11/18 0639 24H INTERVAL SUMMARY * POD #0-> s/p s/p right thoracotomy with flap= patient is lethargic post procedure * NO fevers post op -- WBC elevated this afternoon * Microbiology: Sputum culture growing Serratia and pseudomonas aeruginosa, multidrug-resistant, urine culture grew Annmarie albicans * Indwelling: Trach PEG, R CT's x2 PHYSICAL EXAMINATION: GENERAL:VSS, NAD HEENT: Unremarkable NECK: Supple, trachea midline. CHEST: Rise symmetrical, without dyspnea on observation HEART: Pulse RRR ABDOMEN: Soft, ND EXTREMITIES: Warm, moves all extremities, edema ID ASSESSMENT 68 yo M admit with: Assessment: 1. Systemic inflammatory response syndrome with leukocytosis 2 to #2 2. HCAP with empyema, s/p CT's 3. Acute on chronic kidney disease 4. Dysphagia 5. Fungal UTI 6. Paroxysmal atrial fibrillation 7. Diabetes INVASIVES: Trach PEG, R CT's x2 ABX ALLERGY: KNDA CURRENT ABX: => Amikacin + Zyvox + Diflucan ID RECOMMENDATIONS 1. Continue current ABX 2. Will f/u tomorrow . Consultation Date/Type/Reason Admit Date/Time Aug 02, 2018 at 22:00 Initial Consult Date 08/03/18 Requesting Provider: DEJUAN ORTIZ MD, [facility] Date/Time of Note DATE: 08/11/18 TIME: 15:52 Exam/Review of Systems Exam Vitals Vital Signs Date Temp Pulse Resp B/P (MAP) Pulse Ox O2 O2 Flow FiO2 Time Delivery Rate 08/11/18 98 18 100 30 15:03 08/11/18 142/71 11:15 (94) 08/11/18 Mechanical 11:00 Ventilator 08/11/18 97.7 09:45 Intake and Output 08/10/18 08/10/18 08/11/18 1515:00 23:00 07:00 IntakeIntake Total 960 ml 400 ml OutputOutput Total 1500 ml 2000 ml BalanceBalance -540 ml -1600 ml Results Result Diagram: 08/11/18 1500 08/11/18 0639 Results 24hrs Laboratory Tests Test 4/26/19 17:27 08/10/18 20:58 08/11/18 06:39 08/11/18 07:24 Bedside Glucose 94 144 108 White Blood Count 8.5 Red Blood Count 3.17 L Hemoglobin 8.1 L Hematocrit 26.0 L Mean Corpuscular 82.0 Volume Mean Corpuscular 25.6 L Hemoglobin Mean Corpuscular 31.2 L Hemoglobin Concen t Red Cell 18.1 H Distribution Width Platelet Count 161 Mean Platelet 9.0 Volume Immature 1.200 H Granulocytes % Neutrophils % 70.5 Lymphocytes % 14.5 L Monocytes % 10.7 Eosinophils % 2.5 Basophils % 0.6 Nucleated Red 0.0 Blood Cells % Immature 0.100 H Granulocytes # Neutrophils # 6.0 Lymphocytes # 1.2 Monocytes # 0.9 Eosinophils # 0.2 Basophils # 0.1 Nucleated Red 0.0 Blood Cells # Sodium Level 139 Potassium Level 4.1 Chloride Level 106 Carbon Dioxide 28 Level Anion Gap 5 Blood Urea 24 H Nitrogen Creatinine 2.06 H Est Glomerular 32 L Filtrat Rate mL/min Glucose Level 87 Calcium Level 8.5 Phosphorus Level 5.2 H Magnesium Level 2.0 Test 08/11/18 09:53 08/11/18 10:29 08/11/18 11:55 08/11/18 15:00 Blood Gas Blood arterial Specimen Source Arterial Blood 08/11/2018 10:00: Date Drawn 51 AM Arterial Blood pH 7.341 L (Temp corrected) Arterial Blood 49.9 H pCO2 (Temp correct) Arterial Blood 141.3 H pO2 (Temp corrected) Arterial Blood 26.4 H HCO3 Arterial Blood 0.3 Base Excess Arterial Blood 98.5 H Oxygen Saturation Mikey Test N/A Arterial Blood A-Line Gas Puncture Site Arterial 0.1 Blood Carboxyhemo globin Arterial Blood 0.4 Methemoglobin Blood Gas A-a O2 304.2 H Differential Oxyhemoglobin 98.0 Percent Blood Gas 37.0 Temperature Blood Gas 18.0 Respiration Rate Blood Gas Actual 18 Respiration Rate Blood Gas VENT - AC Modality FiO2 70.0 Blood Gas Tidal 500.0 Volume Blood Gas High 5.0 PEEP Setting Blood Gas R GALAN RN Critical Value Read Back Blood Gas T 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 Blood Gas 08/11/2018 10:09: Notified Time 01 AM Bedside Glucose 173 184 White Blood Count 21.7 #H Red Blood Count 2.66 L Hemoglobin 6.8 *L Hematocrit 22.0 L Mean Corpuscular 82.7 Volume Mean Corpuscular 25.6 L Hemoglobin Mean Corpuscular 30.9 L Hemoglobin Concen t Red Cell 17.9 H Distribution Width Platelet Count 209 # Mean Platelet 8.9 Volume Immature 1.400 H Granulocytes % Neutrophils % Lymphocytes % Monocytes % Eosinophils % Basophils % Nucleated Red 0.0 Blood Cells % Immature 0.310 H Granulocytes # Neutrophils # Lymphocytes # Monocytes # Eosinophils # Basophils # Nucleated Red Blood Cells # Medications Medication Current Medications IV Flush (NS 3 ml) 3 ml PER PROTOCOL IV ; Start 08/03/18 at 00:00 Ondansetron HCl (Zofran Inj) 4 mg Q6H PRN IV NAUSEA/VOMITING Last administered on 08/03/18 03:48; Admin Dose 4 MG; Start 08/03/18 at 00:00 Nitroglycerin (Nitroglycerin (Sl Tab) 0.4 Mg) 1 tab Q5M PRN SL .CHEST PAIN; Start 08/03/18 at 00:00 Acetaminophen (Tylenol Tab) 650 mg Q6H PRN PO .PAIN 1-3 OR TEMP Last administered on 08/04/18 03:49; Admin Dose 650 MG; Start 08/03/18 at 00:00 Morphine Sulfate (morphine) 2 mg Q4H PRN IV .PAIN 7-10 Last administered on 08/11/18 14:56; Admin Dose 2 MG; Start 08/03/18 at 00:00 Docusate Sodium (Colace) 100 mg Q12H PRN PO .CONSTIPATION; Start 08/03/18 at 00:00 Bisacodyl (Dulcolax) 5 mg DAILY PRN PO .CONSTIPATION; Start 08/03/18 at 00:00 Ascorbic Acid (Vitamin C) 500 mg DAILY PO Last administered on 08/10/18 09:03; Admin Dose 500 MG; Start 08/03/18 at 09:00 Chlorhexidine Gluconate (Peridex) 15 ml Q12H MM Last administered on 08/11/18 14:40; Admin Dose 15 ML; Start 08/03/18 at 00:00 Ferrous Sulfate (Ferrous Sulfate (Ec)) 325 mg DAILY PO Last administered on 08/10/18 09:03; Admin Dose 325 MG; Start 08/03/18 at 09:00 Pantoprazole (Protonix Tab) 40 mg AC BREAKFAST PO Last administered on 08/10/18 09:03; Admin Dose 40 MG; Start 08/03/18 at 07:25 Sucralfate (Carafate) 1 gm AC MEALS AND BEDTIME PO Last administered on 08/11/18 11:50; Admin Dose 1 GM; Start 08/03/18 at 07:25 Albuterol (Proventil 0.083% (Neb)) 2.5 mg Q4H RESP THERAPY PRN NEB TRACHEOSTOMY Last administered on 08/11/18 15:06; Admin Dose 2.5 MG; Start 08/02/18 at 23:45 Multivitamins/ Minerals (Theragran-M) 1 tab DAILY PO Last administered on 08/10/18 09:04; Admin Dose 1 TAB; Start 08/03/18 at 09:00 Miscellaneous Information 1 ea NOTE XX ; Start 08/02/18 at 23:45 Glucose (Glutose) 15 gm Q15M PRN PO DECREASED GLUCOSE; Start 08/02/18 at 23:45 Glucose (Glutose) 22.5 gm Q15M PRN PO DECREASED GLUCOSE; Start 08/02/18 at 23:45 Dextrose (D50w Syringe) 25 ml Q15M PRN IV DECREASED GLUCOSE; Start 08/02/18 at 23:45 Dextrose (D50w Syringe) 50 ml Q15M PRN IV DECREASED GLUCOSE; Start 08/02/18 at 23:45 Glucagon (Glucagen) 1 mg Q15M PRN IM DECREASED GLUCOSE; Start 08/02/18 at 23:45 Glucose (Glutose) 15 gm Q15M PRN BUCCAL DECREASED GLUCOSE; Start 08/02/18 at 23:45 Simethicone (Mylicon) 80 mg Q8H PRN PO DISTENSION/GAS/BLOATING Last administered on 08/04/18 01:55; Admin Dose 80 MG; Start 08/03/18 at 04:30 Amlodipine Besylate (Norvasc) 5 mg DAILY PO Last administered on 08/11/18 11:50; Admin Dose 5 MG; Start 08/03/18 at 09:00 Fluconazole (Diflucan) 100 mg DAILY PO Last administered on 08/10/18 09:03; Admin Dose 100 MG; Start 08/03/18 at 09:00 Linezolid (Zyvox) 600 mg BID PO Last administered on 08/10/18 20:59; Admin Dose 600 MG; Start 08/03/18 at 09:00 Amikacin Sulfate (Amikacin Iv Per Pharmacy) AMIKACIN PER PHARMACY NOTE XX ; Start 08/03/18 at 11:30 Insulin Aspart (Novolog Insulin Pen) NOVOLOG *MILD* ALGORI... AC MEALS AND BEDTIME SC Last administered on 08/11/18 12:33; Admin Dose 2 UNIT; Start 08/03/18 at 17:25 Linagliptin (Tradjenta) 5 mg DAILY PO Last administered on 08/10/18 09:10; Admin Dose 5 MG; Start 08/04/18 at 09:00 Diagnostic Test (Pha) (Accu-Chek) 1 ea 02 XX Last administered on 08/05/18 01:28; Admin Dose 1 EA; Start 08/04/18 at 02:00 Insulin Aspart (Novolog Insulin Pen) 10 unit WITH MEALS SC Last administered on 08/10/18 17:44; Admin Dose 10 UNIT; Start 08/03/18 at 17:55 Acetylcysteine (Mucomyst) 2 ml Q8H RESP THERAPY NEB Last administered on 08/11/18 15:06; Admin Dose 2 ML; Start 08/04/18 at 08:00 Collagenase (Santyl) 1 applic DAILY TOP Last administered on 08/10/18 09:05; Admin Dose 1 APPLIC; Start 08/04/18 at 09:00 Amikacin Sulfate 500 mg/Sodium Chloride 102 ml @ 101.6 mls/ hr Q48H IVPB Last administered on 08/09/18 20:13; Admin Dose 101.6 MLS/HR; Start 08/05/18 at 20:00 Diphenhydramine HCl (Benadryl) 25 mg Q6H PRN IV rash or itching Last administered on 08/10/18 22:22; Admin Dose 25 MG; Start 08/05/18 at 11:00 Metoprolol Tartrate (Lopressor) 25 mg BID PO Last administered on 08/10/18 21:00; Admin Dose 25 MG; Start 08/06/18 at 13:30 Insulin Glargine (Lantus) 18 units DAILY@2000 SC Last administered on 08/10/18 21:22; Admin Dose 18 UNITS; Start 08/07/18 at 20:00 Nystatin (Nystatin Powder) 1 applic BID TOP Last administered on 08/10/18 21:01; Admin Dose 1 APPLIC; Start 08/08/18 at 12:30 Enoxaparin Sodium (Lovenox) 30 mg Q24H SC Last administered on 08/09/18 11:42; Admin Dose 30 MG; Start 08/08/18 at 12:30; Status Hold Enoxaparin Sodium (Lovenox) 80 mg Q24H SC Last administered on 08/09/18 11:41; Admin Dose 80 MG; Start 08/08/18 at 12:30; Status Hold Furosemide (Lasix) 40 mg BID IV Last administered on 08/10/18 20:59; Admin Dose 40 MG; Start 08/09/18 at 09:00 Digoxin (Digoxin) 0.125 mg DAILY@13 PO Last administered on 08/11/18 14:40; Admin Dose 0.125 MG; Start 08/10/18 at 13:00 KATERIN WHIPPLE NP Aug 11, 2018 15:58
[2018-08-11] MEDS ORDERED: DESMOPRESSIN IVPB ONE (18:00)
[2018-08-11] MEDS ORDERED: SOD CHLORIDE 0.9% IVPB ONE (18:00)
[2018-08-11] MEDS: INSULIN GLARGINE [LANTus] (100 UNITS/ML) SYG SC SCH (20:18)
[2018-08-11] MEDS: AMIKACIN 500 MG in SOD CHLORIDE 0.9% 100 ML IVPB SCH (23:45)
[2018-08-12] VITALS (44 sets, daily range): BP systolic 113–134; BP diastolic 49–69; PULSE 79–115; RESP 16–29
[2018-08-12] MEDS: ALBUTEROL 0.083% (NEB) 2.5 MG/3 ML AMP NEB PRN ×3 (00:49→23:45)
[2018-08-12] MEDS: ACETYLCYSTEINE 20% 4 ML VIAL NEB SCH ×4 (00:49→23:45)
[2018-08-12] MEDS: ACCU-CHEK XX SCH (02:00)
[2018-08-12] MEDS: morphine 2 MG INJ IV PRN ×2 (06:40→09:43)
[2018-08-12] MEDS: PANTOPRAZOLE (EC) 40 MG TAB PO SCH (06:46)
[2018-08-12] MEDS: SUCRALFATE 1 GM TAB PO SCH ×4 (06:46→21:32)
[2018-08-12] MEDS: INSULIN ASPART [NOVOLOG] 3 ML PEN SC SCH ×7 (06:57→20:59)
[2018-08-12] MEDS ORDERED: METOLAZONE 5 MG TAB PO ONE (08:00)
--- NOTE | 2018-08-12 08:00 | CONS ---
Assessment/Plan Assessment/Plan Problems: (1) Type 2 diabetes mellitus with diabetic chronic kidney disease Status: Chronic Comment: Stable at this time on subcutaneous insulin regimen. Continue with current treatment. 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 Date/Time of Note DATE: 08/12/18 TIME: 07:58 24 HR Interval Summary Free Text/Dictation Patient is postop after thoracotomy and decortication. At this time the patient is awake alert and wall on tracheostomy and ventilator able to interact c oherently and cogently Subjective hx not possible: pt non-verbal Constitutional: no complaints Detailed Summary Respiratory: pain (Pain at surgery site) Cardiovascular: no complaints Gastrointestinal: no complaints Endocrine: no complaints Exam/Review of Systems Exam Vitals Vital Signs Date Temp Pulse Resp B/P (MAP) Pulse Ox O2 O2 Flow FiO2 Time Delivery Rate 08/12/18 100 19 125/56 96 Mechanical 06:00 (79) Ventilator 08/12/18 30 04:59 08/12/18 98.9 04:00 Intake and Output 08/11/18 08/11/18 08/12/18 1515:00 23:00 07:00 IntakeIntake Total 130 ml 1000 ml 600 ml OutputOutput Total 30 ml 300 ml BalanceBalance 100 ml 700 ml 600 ml Constitutional: alert, oriented ENMT: intubated Cardiovascular: regular rate and rhythm, nl pulses Gastrointestinal: soft, nl liver, spleen, non-tender Results Result Diagram: 08/12/18 0340 08/12/18 0340 Results 24hrs Laboratory Tests Test 08/11/18 09:53 08/11/18 10:29 08/11/18 11:55 08/11/18 15:00 Blood Gas Blood arterial Specimen Source Arterial Blood 08/11/2018 10:00 Date Drawn :51 AM Arterial Blood 7.341 L pH (Temp corrected) Arterial Blood 49.9 H pCO2 (Temp correct) Arterial Blood 141.3 H pO2 (Temp corrected) Arterial Blood 26.4 H HCO3 Arterial Blood 0.3 Base Excess Arterial Blood 98.5 H Oxygen Saturatio n Mikey Test N/A Arterial Blood A-Line Gas Puncture Site Arterial 0.1 Blood Carboxyhem oglobin Arterial Blood 0.4 Methemoglobin Blood Gas A-a O2 304.2 H Differential Oxyhemoglobin 98.0 Percent Blood Gas 37.0 Temperature Blood Gas 18.0 Respiration Rate Blood Gas Actual 18 Respiration Rate Blood Gas VENT - AC Modality FiO2 70.0 Blood Gas Tidal 500.0 Volume Blood Gas High 5.0 PEEP Setting Blood Gas R GALAN RN Critical Value Read Back Blood Gas T 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 Blood Gas 08/11/2018 10:09 Notified Time :01 AM Bedside Glucose 173 184 White Blood 21.7 #H Count Red Blood Count 2.66 L Hemoglobin 6.8 *L Hematocrit 22.0 L Mean Corpuscular 82.7 Volume Mean Corpuscular 25.6 L Hemoglobin Mean Corpuscular 30.9 L Hemoglobin Dorene nt Red Cell 17.9 H Distribution Width Platelet Count 209 # Mean Platelet 8.9 Volume Immature 1.400 H Granulocytes % Neutrophils % Segmented 92 H Neutrophils % (Manual) Band Neutrophils 7 H % (Manual) Lymphocytes % Lymphocytes % 1 L (Manual) Monocytes % Eosinophils % Basophils % Nucleated Red 0.0 Blood Cells % Immature 0.310 H Granulocytes # Neutrophils # Neutrophils # 20.3 H (Manual) Band Neutrophils 1.5 H # Lymphocytes 0.2 L (Manual) Lymphocytes # Monocytes # Eosinophils # Basophils # Nucleated Red Blood Cells # Platelet NORMAL Estimate Polychromasia 3+ Hypochromasia 2+ Anisocytosis 1+ Microcytosis 1+ Test 08/11/18 15:43 08/11/18 17:55 08/11/18 20:59 08/12/18 01:37 Prothrombin Time 14.4 Prothrombin Time 1.1 Ratio INR 1.11 International Normalized Ratio Activated 30.3 Partial Thrombop last Time Fibrinogen 486.0 H Bedside Glucose 235 H 167 126 Test 08/12/18 03:40 08/12/18 05:00 08/12/18 06:49 White Blood 28.6 #H Count Red Blood Count 3.09 L Hemoglobin 8.3 #L Hematocrit 26.1 L Mean Corpuscular 84.5 Volume Mean Corpuscular 26.9 L Hemoglobin Mean Corpuscular 31.8 L Hemoglobin Dorene nt Red Cell 17.8 H Distribution Width Platelet Count 206 Mean Platelet 9.2 Volume Immature 0.800 H Granulocytes % Neutrophils % 87.6 H Lymphocytes % 5.6 L Monocytes % 5.6 Eosinophils % 0.2 Basophils % 0.2 Nucleated Red 0.0 Blood Cells % Immature 0.240 H Granulocytes # Neutrophils # 25.0 H Lymphocytes # 1.6 Monocytes # 1.6 H Eosinophils # 0.1 Basophils # 0.1 Nucleated Red 0.0 Blood Cells # Sodium Level 137 Potassium Level 4.6 Chloride Level 105 Carbon Dioxide 25 Level Anion Gap 7 Blood Urea 29 H Nitrogen Creatinine 2.11 H Est Glomerular 31 L Filtrat Rate mL/min Glucose Level 107 Lactic Acid 1.4 Level Calcium Level 8.0 L Phosphorus Level 6.3 H Magnesium Level 1.9 Blood Gas Blood arterial Specimen Source Arterial Blood 08/12/2018 4:00: Date Drawn 49 AM Arterial Blood 7.389 pH (Temp corrected) Arterial Blood 39.6 pCO2 (Temp correct) Arterial Blood 78.8 L pO2 (Temp corrected) Arterial Blood 23.4 HCO3 Arterial Blood -1.4 Base Excess Arterial Blood 95.2 Oxygen Saturatio n Mikey Test N/A Arterial Blood A-Line Gas Puncture Site Arterial 0.5 Blood Carboxyhem oglobin Arterial Blood 0.5 Methemoglobin Blood Gas A-a O2 88.6 H Differential Oxyhemoglobin 94.2 Percent Blood Gas 37.0 Temperature Blood Gas 18.0 Respiration Rate Blood Gas Actual 18 Respiration Rate Blood Gas VENT - AC Modality FiO2 30.0 Blood Gas Tidal 500.0 Volume Blood Gas 27.0 Inspiratory Pressure Blood Gas UP Notified Whom Blood Gas 08/12/2018 4:20: Notified Time 30 AM Bedside Glucose 110 Medications Medication Current Medications IV Flush (NS 3 ml) 3 ml PER PROTOCOL IV ; Start 08/03/18 at 00:00 Ondansetron HCl (Zofran Inj) 4 mg Q6H PRN IV NAUSEA/VOMITING Last administered on 08/03/18at 03:48; Admin Dose 4 MG; Start 08/03/18 at 00:00 Nitroglycerin (Nitroglycerin (Sl Tab) 0.4 Mg) 1 tab Q5M PRN SL .CHEST PAIN; Start 08/03/18 at 00:00 Acetaminophen (Tylenol Tab) 650 mg Q6H PRN PO .PAIN 1-3 OR TEMP Last administered on 08/04/18 03:49; Admin Dose 650 MG; Start 08/03/18 at 00:00 Docusate Sodium (Colace) 100 mg Q12H PRN PO .CONSTIPATION; Start 08/03/18 at 00:00 Bisacodyl (Dulcolax) 5 mg DAILY PRN PO .CONSTIPATION; Start 08/03/18 at 00:00 Ascorbic Acid (Vitamin C) 500 mg DAILY PO Last administered on 08/10/18 09:03; Admin Dose 500 MG; Start 08/03/18 at 09:00 Chlorhexidine Gluconate (Peridex) 15 ml Q12H MM Last administered on 08/11/18 23:53; Admin Dose 15 ML; Start 08/03/18 at 00:00 Ferrous Sulfate (Ferrous Sulfate (Ec)) 325 mg DAILY PO Last administered on 08/10/18 09:03; Admin Dose 325 MG; Start 08/03/18 at 09:00 Pantoprazole (Protonix Tab) 40 mg AC BREAKFAST PO Last administered on 08/12/18 06:46; Admin Dose 40 MG; Start 08/03/18 at 07:25 Sucralfate (Carafate) 1 gm AC MEALS AND BEDTIME PO Last administered on 08/12/18 06:46; Admin Dose 1 GM; Start 08/03/18 at 07:25 Albuterol (Proventil 0.083% (Neb)) 2.5 mg Q4H RESP THERAPY PRN NEB TRACHEOSTOMY Last administered on 08/12/18 07:56; Admin Dose 2.5 MG; Start 08/02/18 at 23:45 Multivitamins/ Minerals (Theragran-M) 1 tab DAILY PO Last administered on 09:04; Admin Dose 1 TAB; Start 08/03/18 at 09:00 Miscellaneous Information 1 ea NOTE XX ; Start 08/02/18 at 23:45 Glucose (Glutose) 15 gm Q15M PRN PO DECREASED GLUCOSE; Start 08/02/18 at 23:45 Glucose (Glutose) 22.5 gm Q15M PRN PO DECREASED GLUCOSE; Start 08/02/18 at 23:45 Dextrose (D50w Syringe) 25 ml Q15M PRN IV DECREASED GLUCOSE; Start 08/02/18 at 23:45 Dextrose (D50w Syringe) 50 ml Q15M PRN IV DECREASED GLUCOSE; Start 08/02/18 at 23:45 Glucagon (Glucagen) 1 mg Q15M PRN IM DECREASED GLUCOSE; Start 08/02/18 at 23:45 Glucose (Glutose) 15 gm Q15M PRN BUCCAL DECREASED GLUCOSE; Start 08/02/18 at 23:45 Simethicone (Mylicon) 80 mg Q8H PRN PO DISTENSION/GAS/BLOATING Last administer ed on 08/04/18 01:55; Admin Dose 80 MG; Start 08/03/18 at 04:30 Amlodipine Besylate (Norvasc) 5 mg DAILY PO Last administered on 08/11/18 11:50; Admin Dose 5 MG; Start 08/03/18 at 09:00 Fluconazole (Diflucan) 100 mg DAILY PO Last administered on 08/10/18 09:03; Admin Dose 100 MG; Start 08/03/18 at 09:00 Linezolid (Zyvox) 600 mg BID PO Last administered on 08/11/18 20:49; Admin Dose 600 MG; Start 08/03/18 at 09:00 Amikacin Sulfate (Amikacin Iv Per Pharmacy) AMIKACIN PER PHARMACY NOTE XX ; Start 08/03/18 at 11:30 Insulin Aspart (Novolog Insulin Pen) NOVOLOG *MILD* ALGORI... AC MEALS AND BEDTIME SC Last administered on 08/11/18 21:02; Admin Dose 1 UNIT; Start 08/03/18 at 17:25 Linagliptin (Tradjenta) 5 mg DAILY PO Last administered on 08/10/18 09:10; Admin Dose 5 MG; Start 08/04/18 at 09:00 Diagnostic Test (Pha) (Accu-Chek) 1 ea 02 XX Last administered on 08/05/18 01:28; Admin Dose 1 EA; Start 08/04/18 at 02:00 Insulin Aspart (Novolog Insulin Pen) 10 unit WITH MEALS SC Last administered on 08/11/18 19:56; Admin Dose 10 UNIT; Start 08/03/18 at 17:55 Acetylcysteine (Mucomyst) 2 ml Q8H RESP THERAPY NEB Last administered on 08/12/18 07:56; Admin Dose 2 ML; Start 08/04/18 at 08:00 Collagenase (Santyl) 1 applic DAILY TOP Last administered on 08/10/18 09:05; Admin Dose 1 APPLIC; Start 08/04/18 at 09:00 Amikacin Sulfate 500 mg/Sodium Chloride 102 ml @ 101.6 mls/ hr Q48H IVPB Last administered on 08/11/18 23:45; Admin Dose 101.6 MLS/HR; Start 08/05/18 at 20:00 Diphenhydramine HCl (Benadryl) 25 mg Q6H PRN IV rash or itching Last administered on 08/10/18 22:22; Admin Dose 25 MG; Start 08/05/18 at 11:00 Metoprolol Tartrate (Lopressor) 25 mg BID PO Last administered on 08/11/18 20:50; Admin Dose 25 MG; Start 08/06/18 at 13:30 Insulin Glargine (Lantus) 18 units DAILY@2000 SC Last administered on 08/11/18 20:18; Admin Dose 18 UNITS; Start 08/07/18 at 20:00 Nystatin (Nystatin Powder) 1 applic BID TOP Last administered on 08/11/18 23:45; Admin Dose 1 APPLIC; Start 08/08/18 at 12:30 Enoxaparin Sodium (Lovenox) 30 mg Q24H SC Last administered on 08/09/18 11:42; Admin Dose 30 MG; Start 08/08/18 at 12:30; Status Hold Enoxaparin Sodium (Lovenox) 80 mg Q24H SC Last administered on 08/09/18 11:41; Admin Dose 80 MG; Start 08/08/18 at 12:30; Status Hold Furosemide (Lasix) 40 mg BID IV Last administered on 08/11/18 20:49; Admin Dose 40 MG; Start 08/09/18 at 09:00 Digoxin (Digoxin) 0.125 mg DAILY@13 PO Last administered on 08/11/18 14:40; Admin Dose 0.125 MG; Start 08/10/18 at 13:00 Morphine Sulfate (morphine) 2 mg Q2H PRN IV .PAIN 7-10 Last administered on 08/12/18at 06:40; Admin Dose 2 MG; Start 08/11/18 at 17:30 Metolazone (Zaroxolyn) 5 mg ONCE ONCE PO ; Start 08/12/18 at 08:00; Stop 08/12/18 at 08:01; Status SAMARIA BARNHART MD Aug 12, 2018 08:00
--- NOTE | 2018-08-12 08:12 | PN ---
DATE: 08/12/2018 SUBJECTIVE: The patient underwent right thoracotomy, decortication with flap creation. Following carrillo rgery, the patient was placed in intensive care unit, currently stable. The patient is status post b lood transfusion. No other acute events noted. No hemoptysis, hematemesis, hematochezia. OBJECTIVE: VITAL SIGNS: Blood pressure is 125/56, respiration 19, pulse 100, temperature 98.9. HEENT: Head is normocephalic. NECK: Supple. HEART: Regular rate. LUNGS: Show diminished breath sounds at base. ABDOMEN: Soft, nontender to palpation, rebound or guarding. EXTREMITIES: Negative for clubbing, cyanosis. Positive edema. DERMATOLOGIC: No rashes. MUSCULOSKELETAL: No joint effusion. NEUROLOGIC: No change in exam. MEDICATIONS: Have been reviewed. LABORATORY DATA: Has been reviewed. ASSESSMENT AND PLAN: 1. Chronic kidney disease, stage IV, with baseline creatinine between 2.2 to 0.3 mg/dL. The patient 's renal function is currently at baseline. Continue current treatment plan, supportive care, renall y dose medication. 2. Volume overload. Etiology secondary to acute diastolic heart failure, cirrhosis. Continue curre nt diuretic regimen. Will add metolazone to augment diuresis, monitor electrolytes and renal functio n closely. 3. Mineral bone disorder, monitor calcium and phosphorus levels. 4. Anemia. Monitor hemoglobin and hematocrit levels. 5. Ventilator dependent respiratory failure. Vent settings and ABG was reviewed. Continue to monit or. 6. Right lung opacification, status post thoracotomy, postop day #1. Continue to monitor. Follow u p with CT surgery. 7. Arrhythmia. Continue medical management. 8. Diabetes. Continue current insulin regimen. 9. Sepsis. Patient is completing antibiotic course. 10. Cirrhosis. Continue current treatment plan. Dictated By: LORY KAY DO NR/NTS Conf#: [id number] DID#: [id number] CC: VARSHA PEARSON MD;*EndCC*
--- NOTE | 2018-08-12 08:45 | PN ---
Date/Time of Note Date/Time of Note DATE: 08/12/18 TIME: 08:40 Assessment/Plan VTE Prophylaxis Risk score (from Ns)>0 risk: 14 SCD applied (from Ns): No SCD contraindicated: other Pharmacological prophylaxis: NA/contraindicated Pharm contraindication: surgical contra Lines/Catheters IV C[facility]ter Type (from [facility]): Mid Line Urinary Cath still in place: No Assessment/Plan Hospital Course S: Pt had the right thoracotomy, partial decortication of the lower lobe, and Eloesser flap creation yesterday. After that, no acute events overnight, but did receive 2 unit PRBC transfusion last night. Tolerating diet. O: VS- see below PE: General: Obese man lying in bed, trach HEENT: Atraumatic, normocephalic. Neck: trach to vent Lungs: Mechanical, some coarse breath sounds throughout, chest tubes in place Heart: Normal S1-S2, Regular rhythm and rate. No murmur, S3, or S4 Abdomen: Soft , obese, nontender, nondistended , bowel sounds are present. Extremities: 1+ bilateral lower extremity edema Neurologic: awake, alert. Able to talk with deflated cuff. Skin: Raised, erythematous macular rash across abdomen Assessment/Plan: 68-year-old man with a past medical history of chronic respiratory failure status post trach, who was transferred from [facility] to [facility] for evaluation of loculated empyema ad possible VATS. The patient was a previous resident of [facility], was noted to have a loculated fluid effusion. The patient, after attempted bronchoscopy and post chest-tube without improvement of loculated fluid was subsequently transferred to [facility] for surgical evaluation. #1 acute on chronic hypoxemic and hypercarbic respiratory failure-Patient is on chronic ventilatory support via trach. Again after getting pigtail catheter few days ago, patient is status post right thoracotomy, partial decortication of the lower lobe, and Eloesser flap creation postop day #1. -Continue vent management as per pulmonary and cardiothoracic surgery team, antibiotics as ordered by ID team #2 Right pulmonary opacification plus infiltrates-Suspicion likely for large loculated thick pleural effusion, loculated empyema s/p failed bronchoscopy and chest tube prior to admission, but again did receive pigtail catheter x2 5 days ago with purulent/pus drainage. Again despite that, patient is now status post right thoracotomy, partial decortication of the lower lobe, and Eloesser flap creation postop day #1. -Continue broad-spectrum antibiotics of Zyvox, fluconazole, as well as amikacin. ID consulted -Follow-up postoperative recommendations from pulmonary and cardiothoracic surgery teams. #3 Paroxysmal atrial fibrillation-Currently in sinus rhythm, has been having some PVCs the last few days. - Continue to monitor. - Xarelto on hold at the current time, was switched to Lovenox earlier this admission, holding now given the bleeding seen from the chest tube site yesterday as well as because of the surgical procedure that occurred earlier this morning. Consider restarting today or in the next 24 hours likely when okay with cardiothoracic surgery team #4 anemia of chronic disease: Patient received PRBC transfusion earlier this admission and again last night, hemoglobin today 8.3. -Monitor, transfuse for Hgb<7 or for symptomatic anemia #5 Chronic kidney disease stage III r/o FROILAN: Creatinine appears to be at baseline in the low 2 range -nephro consulted, f/u trend and recommendations #6 diabetes mellitus: A1c was 8.6, sugars are stable -Monitor sugars, follow-up endocrinology recommendations #7 diastolic CHF - chronic with bilateral lower extremity edema-may also be related to anasarca from #8 -Monitor for now #8 Hepatic cirrhosis-Chest CT shows possible liver cirrhosis confirmed on USS. -Monitor, f/u hepatitis serologies. #9 DVT GI prophylaxis: lovenox, Protonix Critical care time spent in patient care today equals 40 minutes. Result Diagram: 08/12/18 0340 08/12/18 0340 Results 24hrs Laboratory Tests Test 08/11/18 09:53 08/11/18 10:29 08/11/18 11:55 08/11/18 15:00 Blood Gas Blood arterial Specimen Source Arterial Blood 08/11/2018 10:00 Date Drawn :51 AM Arterial Blood 7.341 L pH (Temp corrected) Arterial Blood 49.9 H pCO2 (Temp correct) Arterial Blood 141.3 H pO2 (Temp corrected) Arterial Blood 26.4 H HCO3 Arterial Blood 0.3 Base Excess Arterial Blood 98.5 H Oxygen Saturatio n Mikey Test N/A Arterial Blood A-Line Gas Puncture Site Arterial 0.1 Blood Carboxyhem oglobin Arterial Blood 0.4 Methemoglobin Blood Gas A-a O2 304.2 H Differential Oxyhemoglobin 98.0 Percent Blood Gas 37.0 Temperature Blood Gas 18.0 Respiration Rate Blood Gas Actual 18 Respiration Rate Blood Gas VENT - AC Modality FiO2 70.0 Blood Gas Tidal 500.0 Volume Blood Gas High 5.0 PEEP Setting Blood Gas R GALAN RN Critical Value Read Back Blood Gas T [facility] Notified Whom Blood Gas 08/11/2018 10:09 Notified Time :01 AM Bedside Glucose 173 184 White Blood 21.7 #H Count Red Blood Count 2.66 L Hemoglobin 6.8 *L Hematocrit 22.0 L Mean Corpuscular 82.7 Volume Mean Corpuscular 25.6 L Hemoglobin Mean Corpuscular 30.9 L Hemoglobin Dorene nt Red Cell 17.9 H Distribution Width Platelet Count 209 # Mean Platelet 8.9 Volume Immature 1.400 H Granulocytes % Neutrophils % Segmented 92 H Neutrophils % (Manual) Band Neutrophils 7 H % (Manual) Lymphocytes % Lymphocytes % 1 L (Manual) Monocytes % Eosinophils % Basophils % Nucleated Red 0.0 Blood Cells % Immature 0.310 H Granulocytes # Neutrophils # Neutrophils # 20.3 H (Manual) Band Neutrophils 1.5 H # Lymphocytes 0.2 L (Manual) Lymphocytes # Monocytes # Eosinophils # Basophils # Nucleated Red Blood Cells # Platelet NORMAL Estimate Polychromasia 3+ Hypochromasia 2+ Anisocytosis 1+ Microcytosis 1+ Test 08/11/18 15:43 08/11/18 17:55 08/11/18 20:59 08/12/18 01:37 Prothrombin Time 14.4 Prothrombin Time 1.1 Ratio INR 1.11 International Normalized Ratio Activated 30.3 Partial Thrombop last Time Fibrinogen 486.0 H Bedside Glucose 235 H 167 126 Test 08/12/18 03:40 08/12/18 05:00 08/12/18 06:49 08/12/18 08:35 White Blood 28.6 #H Count Red Blood Count 3.09 L Hemoglobin 8.3 #L Hematocrit 26.1 L Mean Corpuscular 84.5 Volume Mean Corpuscular 26.9 L Hemoglobin Mean Corpuscular 31.8 L Hemoglobin Dorene nt Red Cell 17.8 H Distribution Width Platelet Count 206 Mean Platelet 9.2 Volume Immature 0.800 H Granulocytes % Neutrophils % 87.6 H Lymphocytes % 5.6 L Monocytes % 5.6 Eosinophils % 0.2 Basophils % 0.2 Nucleated Red 0.0 Blood Cells % Immature 0.240 H Granulocytes # Neutrophils # 25.0 H Lymphocytes # 1.6 Monocytes # 1.6 H Eosinophils # 0.1 Basophils # 0.1 Nucleated Red 0.0 Blood Cells # Sodium Level 137 Potassium Level 4.6 Chloride Level 105 Carbon Dioxide 25 Level Anion Gap 7 Blood Urea 29 H Nitrogen Creatinine 2.11 H Est Glomerular 31 L Filtrat Rate mL/min Glucose Level 107 Lactic Acid 1.4 Level Calcium Level 8.0 L Phosphorus Level 6.3 H Magnesium Level 1.9 Blood Gas Blood arterial Specimen Source Arterial Blood 08/12/2018 4:00: Date Drawn 49 AM Arterial Blood 7.389 pH (Temp corrected) Arterial Blood 39.6 pCO2 (Temp correct) Arterial Blood 78.8 L pO2 (Temp corrected) Arterial Blood 23.4 HCO3 Arterial Blood -1.4 Base Excess Arterial Blood 95.2 Oxygen Saturatio n Mikey Test N/A Arterial Blood A-Line Gas Puncture Site Arterial 0.5 Blood Carboxyhem oglobin Arterial Blood 0.5 Methemoglobin Blood Gas A-a O2 88.6 H Differential Oxyhemoglobin 94.2 Percent Blood Gas 37.0 Temperature Blood Gas 18.0 Respiration Rate Blood Gas Actual 18 Respiration Rate Blood Gas VENT - AC Modality FiO2 30.0 Blood Gas Tidal 500.0 Volume Blood Gas 27.0 Inspiratory Pressure Blood Gas UP Notified Whom Blood Gas 08/12/2018 4:20: Notified Time 30 AM Bedside Glucose 110 124 Exam/Review of Systems Exam Vitals Vital Signs Date Temp Pulse Resp B/P (MAP) Pulse Ox O2 O2 Flow FiO2 Time Delivery Rate 08/12/18 92 08:00 08/12/18 19 125/56 96 Mechanical 06:00 (79) Ventilator 08/12/18 30 04:59 08/12/18 98.9 04:00 Intake and Output 08/11/18 08/11/18 08/12/18 1414:59 22:59 06:59 IntakeIntake Total 30 ml 1000 ml 700 ml OutputOutput Total 30 ml 300 ml BalanceBalance 0 ml 1000 ml 400 ml Results Results 24hrs Laboratory Tests Test 08/11/18 09:53 08/11/18 10:29 08/11/18 11:55 08/11/18 15:00 Blood Gas Blood arterial Specimen Source Arterial Blood 08/11/2018 10:00 Date Drawn :51 AM Arterial Blood 7.341 L pH (Temp corrected) Arterial Blood 49.9 H pCO2 (Temp correct) Arterial Blood 141.3 H pO2 (Temp corrected) Arterial Blood 26.4 H HCO3 Arterial Blood 0.3 Base Excess Arterial Blood 98.5 H Oxygen Saturatio n Mikey Test N/A Arterial Blood A-Line Gas Puncture Site Arterial 0.1 Blood Carboxyhem oglobin Arterial Blood 0.4 Methemoglobin Blood Gas A-a O2 304.2 H Differential Oxyhemoglobin 98.0 Percent Blood Gas 37.0 Temperature Blood Gas 18.0 Respiration Rate Blood Gas Actual 18 Respiration Rate Blood Gas VENT - AC Modality FiO2 70.0 Blood Gas Tidal 500.0 Volume Blood Gas High 5.0 PEEP Setting Blood Gas R GALAN RN Critical Value Read Back Blood Gas T [facility] Notified Whom Blood Gas 08/11/2018 10:09 Notified Time :01 AM Bedside Glucose 173 184 White Blood 21.7 #H Count Red Blood Count 2.66 L Hemoglobin 6.8 *L Hematocrit 22.0 L Mean Corpuscular 82.7 Volume Mean Corpuscular 25.6 L Hemoglobin Mean Corpuscular 30.9 L Hemoglobin Dorene nt Red Cell 17.9 H Distribution Width Platelet Count 209 # Mean Platelet 8.9 Volume Immature 1.400 H Granulocytes % Neutrophils % Segmented 92 H Neutrophils % (Manual) Band Neutrophils 7 H % (Manual) Lymphocytes % Lymphocytes % 1 L (Manual) Monocytes % Eosinophils % Basophils % Nucleated Red 0.0 Blood Cells % Immature 0.310 H Granulocytes # Neutrophils # Neutrophils # 20.3 H (Manual) Band Neutrophils 1.5 H # Lymphocytes 0.2 L (Manual) Lymphocytes # Monocytes # Eosinophils # Basophils # Nucleated Red Blood Cells # Platelet NORMAL Estimate Polychromasia 3+ Hypochromasia 2+ Anisocytosis 1+ Microcytosis 1+ Test 08/11/18 15:43 08/11/18 17:55 08/11/18 20:59 08/12/18 01:37 Prothrombin Time 14.4 Prothrombin Time 1.1 Ratio INR 1.11 International Normalized Ratio Activated 30.3 Partial Thrombop last Time Fibrinogen 486.0 H Bedside Glucose 235 H 167 126 Test 08/12/18 03:40 08/12/18 05:00 08/12/18 06:49 08/12/18 08:35 White Blood 28.6 #H Count Red Blood Count 3.09 L Hemoglobin 8.3 #L Hematocrit 26.1 L Mean Corpuscular 84.5 Volume Mean Corpuscular 26.9 L Hemoglobin Mean Corpuscular 31.8 L Hemoglobin Dorene nt Red Cell 17.8 H Distribution Width Platelet Count 206 Mean Platelet 9.2 Volume Immature 0.800 H Granulocytes % Neutrophils % 87.6 H Lymphocytes % 5.6 L Monocytes % 5.6 Eosinophils % 0.2 Basophils % 0.2 Nucleated Red 0.0 Blood Cells % Immature 0.240 H Granulocytes # Neutrophils # 25.0 H Lymphocytes # 1.6 Monocytes # 1.6 H Eosinophils # 0.1 Basophils # 0.1 Nucleated Red 0.0 Blood Cells # Sodium Level 137 Potassium Level 4.6 Chloride Level 105 Carbon Dioxide 25 Level Anion Gap 7 Blood Urea 29 H Nitrogen Creatinine 2.11 H Est Glomerular 31 L Filtrat Rate mL/min Glucose Level 107 Lactic Acid 1.4 Level Calcium Level 8.0 L Phosphorus Level 6.3 H Magnesium Level 1.9 Blood Gas Blood arterial Specimen Source Arterial Blood 08/12/2018 4:00: Date Drawn 49 AM Arterial Blood 7.389 pH (Temp corrected) Arterial Blood 39.6 pCO2 (Temp correct) Arterial Blood 78.8 L pO2 (Temp corrected) Arterial Blood 23.4 HCO3 Arterial Blood -1.4 Base Excess Arterial Blood 95.2 Oxygen Saturatio n Mikey Test N/A Arterial Blood A-Line Gas Puncture Site Arterial 0.5 Blood Carboxyhem oglobin Arterial Blood 0.5 Methemoglobin Blood Gas A-a O2 88.6 H Differential Oxyhemoglobin 94.2 Percent Blood Gas 37.0 Temperature Blood Gas 18.0 Respiration Rate Blood Gas Actual 18 Respiration Rate Blood Gas VENT - AC Modality FiO2 30.0 Blood Gas Tidal 500.0 Volume Blood Gas 27.0 Inspiratory Pressure Blood Gas UP Notified Whom Blood Gas 08/12/2018 4:20: Notified Time 30 AM Bedside Glucose 110 124 Medications Medication Current Medications IV Flush (NS 3 ml) 3 ml PER PROTOCOL IV ; Start 08/03/18 at 00:00 Ondansetron HCl (Zofran Inj) 4 mg Q6H PRN IV NAUSEA/VOMITING Last administered on 08/03/18at 03:48; Admin Dose 4 MG; Start 08/03/18 at 00:00 Nitroglycerin (Nitroglycerin (Sl Tab) 0.4 Mg) 1 tab Q5M PRN SL .CHEST PAIN; Start 08/03/18 at 00:00 Acetaminophen (Tylenol Tab) 650 mg Q6H PRN PO .PAIN 1-3 OR TEMP Last administered on 08/04/18 03:49; Admin Dose 650 MG; Start 08/03/18 at 00:00 Docusate Sodium (Colace) 100 mg Q12H PRN PO .CONSTIPATION; Start 08/03/18 at 00:00 Bisacodyl (Dulcolax) 5 mg DAILY PRN PO .CONSTIPATION; Start 08/03/18 at 00:00 Ascorbic Acid (Vitamin C) 500 mg DAILY PO Last administered on 08/10/18 09:03; Admin Dose 500 MG; Start 08/03/18 at 09:00 Chlorhexidine Gluconate (Peridex) 15 ml Q12H MM Last administered on 08/11/18 23:53; Admin Dose 15 ML; Start 08/03/18 at 00:00 Ferrous Sulfate (Ferrous Sulfate (Ec)) 325 mg DAILY PO Last administered on 08/10/18 09:03; Admin Dose 325 MG; Start 08/03/18 at 09:00 Pantoprazole (Protonix Tab) 40 mg AC BREAKFAST PO Last administered on 08/12/18 06:46; Admin Dose 40 MG; Start 08/03/18 at 07:25 Sucralfate (Carafate) 1 gm AC MEALS AND BEDTIME PO Last administered on 08/12/18 06:46; Admin Dose 1 GM; Start 08/03/18 at 07:25 Albuterol (Proventil 0.083% (Neb)) 2.5 mg Q4H RESP THERAPY PRN NEB TRACHEOSTOMY Last administered on 08/12/18 07:56; Admin Dose 2.5 MG; Start 08/02/18 at 23:45 Multivitamins/ Minerals (Theragran-M) 1 tab DAILY PO Last administered on 08/10/18 09:04; Admin Dose 1 TAB; Start 08/03/18 at 09:00 Miscellaneous Information 1 ea NOTE XX ; Start 08/02/18 at 23:45 Glucose (Glutose) 15 gm Q15M PRN PO DECREASED GLUCOSE; Start 08/02/18 at 23:45 Glucose (Glutose) 22.5 gm Q15M PRN PO DECREASED GLUCOSE; Start 08/02/18 at 23:45 Dextrose (D50w Syringe) 25 ml Q15M PRN IV DECREASED GLUCOSE; Start 08/02/18 at 23:45 Dextrose (D50w Syringe) 50 ml Q15M PRN IV DECREASED GLUCOSE; Start 08/02/18 at 23:45 Glucagon (Glucagen) 1 mg Q15M PRN IM DECREASED GLUCOSE; Start 08/02/18 at 23:45 Glucose (Glutose) 15 gm Q15M PRN BUCCAL DECREASED GLUCOSE; Start 08/02/18 at 23:45 Simethicone (Mylicon) 80 mg Q8H PRN PO DISTENSION/GAS/BLOATING Last administered on 08/04/18 01:55; Admin Dose 80 MG; Start 08/03/18 at 04:30 Amlodipine Besylate (Norvasc) 5 mg DAILY PO Last administered on 08/11/18 11:50; Admin Dose 5 MG; Start 08/03/18 at 09:00 Fluconazole (Diflucan) 100 mg DAILY PO Last administered on 08/10/18 09:03; Admin Dose 100 MG; Start 08/03/18 at 09:00 Linezolid (Zyvox) 600 mg BID PO Last administered on 08/11/18 20:49; Admin Dose 600 MG; Start 08/03/18 at 09:00 Amikacin Sulfate (Amikacin Iv Per Pharmacy) AMIKACIN PER PHARMACY NOTE XX ; Start 08/03/18 at 11:30 Insulin Aspart (Novolog Insulin Pen) NOVOLOG *MILD* ALGORI... AC MEALS AND BEDTIME SC Last administered on 08/11/18 21:02; Admin Dose 1 UNIT; Start 08/03/18 at 17:25 Linagliptin (Tradjenta) 5 mg DAILY PO Last administered on 08/10/18 09:10; Admin Dose 5 MG; Start 08/04/18 at 09:00 Diagnostic Test (Pha) (Accu-Chek) 1 ea 02 XX Last administered on 08/05/18 01:28; Admin Dose 1 EA; Start 08/04/18 at 02:00 Insulin Aspart (Novolog Insulin Pen) 10 unit WITH MEALS SC Last administered on 08/11/18 19:56; Admin Dose 10 UNIT; Start 08/03/18 at 17:55 Acetylcysteine (Mucomyst) 2 ml Q8H RESP THERAPY NEB Last administered on 08/12/18 07:56; Admin Dose 2 ML; Start 08/04/18 at 08:00 Collagenase (Santyl) 1 applic DAILY TOP Last administered on 08/10/18 09:05; Admin Dose 1 APPLIC; Start 08/04/18 at 09:00 Amikacin Sulfate 500 mg/Sodium Chloride 102 ml @ 101.6 mls/ hr Q48H IVPB Last administered on 08/11/18 23:45; Admin Dose 101.6 MLS/HR; Start 08/05/18 at 20:00 Diphenhydramine HCl (Benadryl) 25 mg Q6H PRN IV rash or itching Last administered on 08/10/18 22:22; Admin Dose 25 MG; Start 08/05/18 at 11:00 Metoprolol Tartrate (Lopressor) 25 mg BID PO Last administered on 08/11/18 20:50; Admin Dose 25 MG; Start 08/06/18 at 13:30 Insulin Glargine (Lantus) 18 units DAILY@2000 SC Last administered on 08/11/18 20:18; Admin Dose 18 UNITS; Start 08/07/18 at 20:00 Nystatin (Nystatin Powder) 1 applic BID TOP Last administered on 08/11/18 23:45; Admin Dose 1 APPLIC; Start 08/08/18 at 12:30 Enoxaparin Sodium (Lovenox) 30 mg Q24H SC Last administered on 08/09/18 11:42; Admin Dose 30 MG; Start 08/08/18 at 12:30; Status Hold Enoxaparin Sodium (Lovenox) 80 mg Q24H SC Last administered on 08/09/18 11:41; Admin Dose 80 MG; Start 08/08/18 at 12:30; Status Hold Furosemide (Lasix) 40 mg BID IV Last administered on 08/11/18 20:49; Admin Dose 40 MG; Start 08/09/18 at 09:00 Digoxin (Digoxin) 0.125 mg DAILY@13 PO Last administered on 08/11/18 14:40; Admin Dose 0.125 MG; Start 08/10/18 at 13:00 Morphine Sulfate (morphine) 2 mg Q2H PRN IV .PAIN 7-10 Last administered on at 06:40; Admin Dose 2 MG; Start 08/11/18 at 17:30 JEIMY LOMAS Aug 12, 2018 08:45
[2018-08-12] MEDS: AMLODIPINE 5 MG TAB PO SCH (09:00)
[2018-08-12] MEDS: MULTIVITAMINS/MINERALS TAB PO SCH (09:39)
[2018-08-12] MEDS: FUROSEMIDE 40 MG INJ IV SCH ×2 (09:39→21:33)
[2018-08-12] MEDS: ASCORBIC ACID 500 MG TAB PO SCH (09:39)
[2018-08-12] MEDS: LINAGLIPTIN 5 MG TABLET PO SCH (09:39)
[2018-08-12] MEDS: ZYVOX 600 MG TAB PO SCH ×2 (09:39→21:32)
[2018-08-12] MEDS: FLUCONAZOLE 100 MG TAB PO SCH (09:39)
[2018-08-12] MEDS: FERROUS SULFATE (EC) 325 MG TAB PO SCH (09:39)
[2018-08-12] MEDS: COLLAGENASE 5 GM (UD JAR) TOP SCH (09:40)
[2018-08-12] MEDS: NYSTATIN 30 GM POWDER BTL TOP SCH (09:40)
[2018-08-12] MEDS: METOPROLOL 25 MG TAB PO SCH ×2 (09:43→21:33)
--- NOTE | 2018-08-12 09:50 | PN ---
Date/Time of Note Date/Time of Note DATE: 08/12/18 TIME: 09:48 Assessment/Plan VTE Prophylaxis Risk score (from [facility] [place])>0 risk: 14 SCD applied (from [facility] [place]): Yes Pharmacological prophylaxis: other Pharm contraindication: bleeding Lines/Catheters IV [facility]ter Type (from [facility] Mid Line Urinary Cath still in place: No Assessment/Plan Assessment/Plan Afebrile. Serosanguinous drainage. Change external dressing. Probably remove internal packing by tomorrow Result Diagram: 08/12/18 0340 08/12/18 0340 Results 24hrs Laboratory Tests Test 08/11/18 09:53 08/11/18 10:29 08/11/18 11:55 08/11/18 15:00 Blood Gas Blood arterial Specimen Source Arterial Blood 08/11/2018 10:00 Date Drawn :51 AM Arterial Blood 7.341 L pH (Temp corrected) Arterial Blood 49.9 H pCO2 (Temp correct) Arterial Blood 141.3 H pO2 (Temp corrected) Arterial Blood 26.4 H HCO3 Arterial Blood 0.3 Base Excess Arterial Blood 98.5 H Oxygen Saturatio n Mikey Test N/A Arterial Blood A-Line Gas Puncture Site Arterial 0.1 Blood Carboxyhem oglobin Arterial Blood 0.4 Methemoglobin Blood Gas A-a O2 304.2 H Differential Oxyhemoglobin 98.0 Percent Blood Gas 37.0 Temperature Blood Gas 18.0 Respiration Rate Blood Gas Actual 18 Respiration Rate Blood Gas VENT - AC Modality FiO2 70.0 Blood Gas Tidal 500.0 Volume Blood Gas High 5.0 PEEP Setting Blood Gas R GALAN RN Critical Value Read Back Blood Gas T [facility] Notified Whom Blood Gas 08/11/2018 10:09 Notified Time :01 AM Bedside Glucose 173 184 White Blood 21.7 #H Count Red Blood Count 2.66 L Hemoglobin 6.8 *L Hematocrit 22.0 L Mean Corpuscular 82.7 Volume Mean Corpuscular 25.6 L Hemoglobin Mean Corpuscular 30.9 L Hemoglobin Dorene nt Red Cell 17.9 H Distribution Width Platelet Count 209 # Mean Platelet 8.9 Volume Immature 1.400 H Granulocytes % Neutrophils % Segmented 92 H Neutrophils % (Manual) Band Neutrophils 7 H % (Manual) Lymphocytes % Lymphocytes % 1 L (Manual) Monocytes % Eosinophils % Basophils % Nucleated Red 0.0 Blood Cells % Immature 0.310 H Granulocytes # Neutrophils # Neutrophils # 20.3 H (Manual) Band Neutrophils 1.5 H # Lymphocytes 0.2 L (Manual) Lymphocytes # Monocytes # Eosinophils # Basophils # Nucleated Red Blood Cells # Platelet NORMAL Estimate Polychromasia 3+ Hypochromasia 2+ Anisocytosis 1+ Microcytosis 1+ Test 08/11/18 15:43 08/11/18 17:55 08/11/18 20:59 08/12/18 01:37 Prothrombin Time 14.4 Prothrombin Time 1.1 Ratio INR 1.11 International Normalized Ratio Activated 30.3 Partial Thrombop last Time Fibrinogen 486.0 H Bedside Glucose 235 H 167 126 Test 08/12/18 03:40 08/12/18 05:00 08/12/18 06:49 08/12/18 08:35 White Blood 28.6 #H Count Red Blood Count 3.09 L Hemoglobin 8.3 #L Hematocrit 26.1 L Mean Corpuscular 84.5 Volume Mean Corpuscular 26.9 L Hemoglobin Mean Corpuscular 31.8 L Hemoglobin Dorene nt Red Cell 17.8 H Distribution Width Platelet Count 206 Mean Platelet 9.2 Volume Immature 0.800 H Granulocytes % Neutrophils % 87.6 H Lymphocytes % 5.6 L Monocytes % 5.6 Eosinophils % 0.2 Basophils % 0.2 Nucleated Red 0.0 Blood Cells % Immature 0.240 H Granulocytes # Neutrophils # 25.0 H Lymphocytes # 1.6 Monocytes # 1.6 H Eosinophils # 0.1 Basophils # 0.1 Nucleated Red 0.0 Blood Cells # Sodium Level 137 Potassium Level 4.6 Chloride Level 105 Carbon Dioxide 25 Level Anion Gap 7 Blood Urea 29 H Nitrogen Creatinine 2.11 H Est Glomerular 31 L Filtrat Rate mL/min Glucose Level 107 Lactic Acid 1.4 Level Calcium Level 8.0 L Phosphorus Level 6.3 H Magnesium Level 1.9 Blood Gas Blood arterial Specimen Source Arterial Blood 08/12/2018 4:00: Date Drawn 49 AM Arterial Blood 7.389 pH (Temp corrected) Arterial Blood 39.6 pCO2 (Temp correct) Arterial Blood 78.8 L pO2 (Temp corrected) Arterial Blood 23.4 HCO3 Arterial Blood -1.4 Base Excess Arterial Blood 95.2 Oxygen Saturatio n Mikey Test N/A Arterial Blood A-Line Gas Puncture Site Arterial 0.5 Blood Carboxyhem oglobin Arterial Blood 0.5 Methemoglobin Blood Gas A-a O2 88.6 H Differential Oxyhemoglobin 94.2 Percent Blood Gas 37.0 Temperature Blood Gas 18.0 Respiration Rate Blood Gas Actual 18 Respiration Rate Blood Gas VENT - AC Modality FiO2 30.0 Blood Gas Tidal 500.0 Volume Blood Gas 27.0 Inspiratory Pressure Blood Gas UP Notified Whom Blood Gas 08/12/2018 4:20: Notified Time 30 AM Bedside Glucose 110 124 Exam/Review of Systems Exam Vitals Vital Signs Date Temp Pulse Resp B/P (MAP) Pulse Ox O2 O2 Flow FiO2 Time Delivery Rate 08/12/18 98 20 128/52 97 08:30 (77) 08/12/18 97.6 Mechanical 08:00 Ventilator Trach Collar 08/12/18 30 04:59 Intake and Output 08/11/18 08/11/18 08/12/18 1515:00 23:00 07:00 IntakeIntake Total 130 ml 1000 ml 720 ml OutputOutput Total 30 ml 300 ml BalanceBalance 100 ml 700 ml 720 ml Results Results 24hrs Laboratory Tests Test 08/11/18 09:53 08/11/18 10:29 08/11/18 11:55 08/11/18 15:00 Blood Gas Blood arterial Specimen Source Arterial Blood 08/11/2018 10:00 Date Drawn :51 AM Arterial Blood 7.341 L pH (Temp corrected) Arterial Blood 49.9 H pCO2 (Temp correct) Arterial Blood 141.3 H pO2 (Temp corrected) Arterial Blood 26.4 H HCO3 Arterial Blood 0.3 Base Excess Arterial Blood 98.5 H Oxygen Saturatio n Mikey Test N/A Arterial Blood A-Line Gas Puncture Site Arterial 0.1 Blood Carboxyhem oglobin Arterial Blood 0.4 Methemoglobin Blood Gas A-a O2 304.2 H Differential Oxyhemoglobin 98.0 Percent Blood Gas 37.0 Temperature Blood Gas 18.0 Respiration Rate Blood Gas Actual 18 Respiration Rate Blood Gas VENT - AC Modality FiO2 70.0 Blood Gas Tidal 500.0 Volume Blood Gas High 5.0 PEEP Setting Blood Gas R GALAN RN Critical Value Read Back Blood Gas T [employer] Notified Whom Blood Gas 08/11/2018 10:09 Notified Time :01 AM Bedside Glucose 173 184 White Blood 21.7 #H Count Red Blood Count 2.66 L Hemoglobin 6.8 *L Hematocrit 22.0 L Mean Corpuscular 82.7 Volume Mean Corpuscular 25.6 L Hemoglobin Mean Corpuscular 30.9 L Hemoglobin Dorene nt Red Cell 17.9 H Distribution Width Platelet Count 209 # Mean Platelet 8.9 Volume Immature 1.400 H Granulocytes % Neutrophils % Segmented 92 H Neutrophils % (Manual) Band Neutrophils 7 H % (Manual) Lymphocytes % Lymphocytes % 1 L (Manual) Monocytes % Eosinophils % Basophils % Nucleated Red 0.0 Blood Cells % Immature 0.310 H Granulocytes # Neutrophils # Neutrophils # 20.3 H (Manual) Band Neutrophils 1.5 H # Lymphocytes 0.2 L (Manual) Lymphocytes # Monocytes # Eosinophils # Basophils # Nucleated Red Blood Cells # Platelet NORMAL Estimate Polychromasia 3+ Hypochromasia 2+ Anisocytosis 1+ Microcytosis 1+ Test 08/11/18 15:43 08/11/18 17:55 08/11/18 20:59 08/12/18 01:37 Prothrombin Time 14.4 Prothrombin Time 1.1 Ratio INR 1.11 International Normalized Ratio Activated 30.3 Partial Thrombop last Time Fibrinogen 486.0 H Bedside Glucose 235 H 167 126 Test 08/12/18 03:40 08/12/18 05:00 08/12/18 06:49 08/12/18 08:35 White Blood 28.6 #H Count Red Blood Count 3.09 L Hemoglobin 8.3 #L Hematocrit 26.1 L Mean Corpuscular 84.5 Volume Mean Corpuscular 26.9 L Hemoglobin Mean Corpuscular 31.8 L Hemoglobin Dorene nt Red Cell 17.8 H Distribution Width Platelet Count 206 Mean Platelet 9.2 Volume Immature 0.800 H Granulocytes % Neutrophils % 87.6 H Lymphocytes % 5.6 L Monocytes % 5.6 Eosinophils % 0.2 Basophils % 0.2 Nucleated Red 0.0 Blood Cells % Immature 0.240 H Granulocytes # Neutrophils # 25.0 H Lymphocytes # 1.6 Monocytes # 1.6 H Eosinophils # 0.1 Basophils # 0.1 Nucleated Red 0.0 Blood Cells # Sodium Level 137 Potassium Level 4.6 Chloride Level 105 Carbon Dioxide 25 Level Anion Gap 7 Blood Urea 29 H Nitrogen Creatinine 2.11 H Est Glomerular 31 L Filtrat Rate mL/min Glucose Level 107 Lactic Acid 1.4 Level Calcium Level 8.0 L Phosphorus Level 6.3 H Magnesium Level 1.9 Blood Gas Blood arterial Specimen Source Arterial Blood 08/12/2018 4:00: Date Drawn 49 AM Arterial Blood 7.389 pH (Temp corrected) Arterial Blood 39.6 pCO2 (Temp correct) Arterial Blood 78.8 L pO2 (Temp corrected) Arterial Blood 23.4 HCO3 Arterial Blood -1.4 Base Excess Arterial Blood 95.2 Oxygen Saturatio n Mikey Test N/A Arterial Blood A-Line Gas Puncture Site Arterial 0.5 Blood Carboxyhem oglobin Arterial Blood 0.5 Methemoglobin Blood Gas A-a O2 88.6 H Differential Oxyhemoglobin 94.2 Percent Blood Gas 37.0 Temperature Blood Gas 18.0 Respiration Rate Blood Gas Actual 18 Respiration Rate Blood Gas VENT - AC Modality FiO2 30.0 Blood Gas Tidal 500.0 Volume Blood Gas 27.0 Inspiratory Pressure Blood Gas UP Notified Whom Blood Gas 08/12/2018 4:20: Notified Time 30 AM Bedside Glucose 110 124 Medications Medication Current Medications IV Flush (NS 3 ml) 3 ml PER PROTOCOL IV ; Start 08/03/18 at 00:00 Ondansetron HCl (Zofran Inj) 4 mg Q6H PRN IV NAUSEA/VOMITING Last administered on 08/03/18 03:48; Admin Dose 4 MG; Start 08/03/18 at 00:00 Nitroglycerin (Nitroglycerin (Sl Tab) 0.4 Mg) 1 tab Q5M PRN SL .CHEST PAIN; Start 08/03/18 at 00:00 Acetaminophen (Tylenol Tab) 650 mg Q6H PRN PO .PAIN 1-3 OR TEMP Last administered on 08/04/18 03:49; Admin Dose 650 MG; Start 08/03/18 at 00:00 Docusate Sodium (Colace) 100 mg Q12H PRN PO .CONSTIPATION; Start 08/03/18 at 00:00 Bisacodyl (Dulcolax) 5 mg DAILY PRN PO .CONSTIPATION; Start 08/03/18 at 00:00 Ascorbic Acid (Vitamin C) 500 mg DAILY PO Last administered on 08/12/18 09:39; Admin Dose 500 MG; Start 08/03/18 at 09:00 Chlorhexidine Gluconate (Peridex) 15 ml Q12H MM Last administered on 08/11/18 23:53; Admin Dose 15 ML; Start 08/03/18 at 00:00 Ferrous Sulfate (Ferrous Sulfate (Ec)) 325 mg DAILY PO Last administered on 08/12/18 09:39; Admin Dose 325 MG; Start 08/03/18 at 09:00 Pantoprazole (Protonix Tab) 40 mg AC BREAKFAST PO Last administered on 08/12/18 06:46; Admin Dose 40 MG; Start 08/03/18 at 07:25 Sucralfate (Carafate) 1 gm AC MEALS AND BEDTIME PO Last administered on 08/12/18 06:46; Admin Dose 1 GM; Start 08/03/18 at 07:25 Albuterol (Proventil 0.083% (Neb)) 2.5 mg Q4H RESP THERAPY PRN NEB TRACHEOSTOMY Last administered on 08/12/18 07:56; Admin Dose 2.5 MG; Start 08/02/18 at 23:45 Multivitamins/ Minerals (Theragran-M) 1 tab DAILY PO Last administered on 08/12/18 09:39; Admin Dose 1 TAB; Start 08/03/18 at 09:00 Miscellaneous Information 1 ea NOTE XX ; Start 08/02/18 at 23:45 Glucose (Glutose) 15 gm Q15M PRN PO DECREASED GLUCOSE; Start 08/02/18 at 23:45 Glucose (Glutose) 22.5 gm Q15M PRN PO DECREASED GLUCOSE; Start 08/02/18 at 23:45 Dextrose (D50w Syringe) 25 ml Q15M PRN IV DECREASED GLUCOSE; Start 08/02/18 at 23:45 Dextrose (D50w Syringe) 50 ml Q15M PRN IV DECREASED GLUCOSE; Start 08/02/18 at 23:45 Glucagon (Glucagen) 1 mg Q15M PRN IM DECREASED GLUCOSE; Start 08/02/18 at 23:45 Glucose (Glutose) 15 gm Q15M PRN BUCCAL DECREASED GLUCOSE; Start 08/02/18 at 23:45 Simethicone (Mylicon) 80 mg Q8H PRN PO DISTENSION/GAS/BLOATING Last administered on 08/04/18 01:55; Admin Dose 80 MG; Start 08/03/18 at 04:30 Amlodipine Besylate (Norvasc) 5 mg DAILY PO Last administered on 08/11/18 11:50; Admin Dose 5 MG; Start 08/03/18 at 09:00 Fluconazole (Diflucan) 100 mg DAILY PO Last administered on 08/12/18 09:39; Admin Dose 100 MG; Start 08/03/18 at 09:00 Linezolid (Zyvox) 600 mg BID PO Last administered on 08/12/18 09:39; Admin Do se 600 MG; Start 08/03/18 at 09:00 Amikacin Sulfate (Amikacin Iv Per Pharmacy) AMIKACIN PER PHARMACY NOTE XX ; Start 08/03/18 at 11:30 Insulin Aspart (Novolog Insulin Pen) NOVOLOG *MILD* ALGORI... AC MEALS AND BEDTIME SC Last administered on 08/11/18 21:02; Admin Dose 1 UNIT; Start 08/03/18 at 17:25 Linagliptin (Tradjenta) 5 mg DAILY PO Last administered on 08/12/18 09:39; Admin Dose 5 MG; Start 08/04/18 at 09:00 Diagnostic Test (Pha) (Accu-Chek) 1 ea 02 XX Last administered on 08/05/18at 0 1:28; Admin Dose 1 EA; Start 08/04/18 at 02:00 Insulin Aspart (Novolog Insulin Pen) 10 unit WITH MEALS SC Last administered on 08/11/18 19:56; Admin Dose 10 UNIT; Start 08/03/18 at 17:55 Acetylcysteine (Mucomyst) 2 ml Q8H RESP THERAPY NEB Last administered on 08/12/18 07:56; Admin Dose 2 ML; Start 08/04/18 at 08:00 Collagenase (Santyl) 1 applic DAILY TOP Last administered on 08/12/18 09:40; Admin Dose 1 APPLIC; Start 08/04/18 at 09:00 Amikacin Sulfate 500 mg/Sodium Chloride 102 ml @ 101.6 mls/ hr Q48H IVPB Last administered on 08/11/18 23:45; Admin Dose 101.6 MLS/HR; Start 08/05/18 at 20:00 Diphenhydramine HCl (Benadryl) 25 mg Q6H PRN IV rash or itching Last administered on 08/10/18 22:22; Admin Dose 25 MG; Start 08/05/18 at 11:00 Metoprolol Tartrate (Lopressor) 25 mg BID PO Last administered on 08/12/18 09:43; Admin Dose 25 MG; Start 08/06/18 at 13:30 Insulin Glargine (Lantus) 18 units DAILY@2000 SC Last administered on 08/11/18 20:18; Admin Dose 18 UNITS; Start 08/07/18 at 20:00 Nystatin (Nystatin Powder) 1 applic BID TOP Last administered on 08/12/18 09:40; Admin Dose 1 APPLIC; Start 08/08/18 at 12:30 Enoxaparin Sodium (Lovenox) 30 mg Q24H SC Last administered on 08/09/18 11:42; Admin Dose 30 MG; Start 08/08/18 at 12:30; Status Hold Enoxaparin Sodium (Lovenox) 80 mg Q24H SC Last administered on 08/09/18 11:41; Admin Dose 80 MG; Start 08/08/18 at 12:30; Status Hold Furosemide (Lasix) 40 mg BID IV Last administered on 08/12/18 09:39; Admin Dose 40 MG; Start 08/09/18 at 09:00 Digoxin (Digoxin) 0.125 mg DAILY@13 PO Last administered on 08/11/18 14:40; Admin Dose 0.125 MG; Start 08/10/18 at 13:00 Morphine Sulfate (morphine) 2 mg Q2H PRN IV .PAIN 7-10 Last administered on 08/12/18 09:43; Admin Dose 2 MG; Start 08/11/18 at 17:30 ANTONIO WEBB MD Aug 12, 2018 09:50
--- NOTE | 2018-08-12 10:14 | CONS ---
Assessment/Plan Assessment/Plan Hospital Course (Demo Recall) ID PROGRESS NOTE CURRENT ABX=Day # => Amikacin + Zyvox + Diflucan 08/12/1833908/12/18339 24H INTERVAL SUMMARY * POD #1-> s/p s/p right thoracotomy with flap= no CT, right DSG/Packing in place * Patient is resting with blackout eye mask --- VSS, NO fevers post op -- WBC elevated * Microbiology: Sputum culture growing Serratia and pseudomonas aeruginosa, multidrug-resistant, urine culture grew Annmarie albic PHYSICAL EXAMINATION: GENERAL:VSS, NAD HEENT: Unremarkable == bilateral eye blackout mask in place NECK: Supple, trache CHEST: Rise symmetrical, without dyspnea on observation HEART: Pulse RRR ABDOMEN: Soft, ND EXTREMITIES: Warm, moves all extremities, edema ID ASSESSMENT 68 yo M admit with: 1. Systemic inflammatory response syndrome with leukocytosis 2 to #2 2. HCAP with empyema, s/p CT's 3. Acute on chronic kidney disease 4. Dysphagia 5. Fungal UTI 6. Paroxysmal atrial fibrillation 7. Diabetes INVASIVES: ABX ALLERGY: KNDA CURRENT ABX: => Amikacin + Zyvox + Diflucan ID RECOMMENDATIONS 1. Continue current ABX 2. ID colleague to f/u Monday -- patient stable POD #1 . Consultation Date/Type/Reason Admit Date/Time Aug 02, 2018 at 22:00 Initial Consult Date 08/03/18 Requesting Provider: DEJUAN ORTIZ MD, [facility] Date/Time of Note DATE: 08/12/18 TIME: 10:12 Exam/Review of Systems Exam Vitals Vital Signs Date Temp Pulse Resp B/P (MAP) Pulse Ox O2 O2 Flow FiO2 Time Delivery Rate 08/12/18 98 20 128/52 97 08:30 (77) 08/12/18 97.6 Mechanical 08:00 Ventilator Trach Collar 08/12/18 30 04:59 Intake and Output 08/11/18 08/11/18 08/12/18 1414:59 22:59 06:59 IntakeIntake Total 30 ml 1000 ml 700 ml OutputOutput Total 30 ml 300 ml BalanceBalance 0 ml 1000 ml 400 ml Results Result Diagram: 08/12/1833908/12/18339 Results 24hrs Laboratory Tests Test 08/11/18 10:29 08/11/18 11:55 08/11/18 15:00 08/11/18 15:43 Bedside Glucose 173 184 White Blood Count 21.7 #H Red Blood Count 2.66 L Hemoglobin 6.8 *L Hematocrit 22.0 L Mean Corpuscular 82.7 Volume Mean Corpuscular 25.6 L Hemoglobin Mean Corpuscular 30.9 L Hemoglobin Concen t Red Cell 17.9 H Distribution Width Platelet Count 209 # Mean Platelet 8.9 Volume Immature 1.400 H Granulocytes % Neutrophils % Segmented 92 H Neutrophils % (Manual) Band Neutrophils 7 H % (Manual) Lymphocytes % Lymphocytes % 1 L (Manual) Monocytes % Eosinophils % Basophils % Nucleated Red 0.0 Blood Cells % Immature 0.310 H Granulocytes # Neutrophils # Neutrophils # 20.3 H (Manual) Band Neutrophils 1.5 H # Lymphocytes 0.2 L (Manual) Lymphocytes # Monocytes # Eosinophils # Basophils # Nucleated Red Blood Cells # Platelet Estimate NORMAL Polychromasia 3+ Hypochromasia 2+ Anisocytosis 1+ Microcytosis 1+ Prothrombin Time 14.4 Prothrombin Time 1.1 Ratio INR International 1.11 Normalized Ratio Activated 30.3 Partial Thrombopl ast Time Fibrinogen 486.0 H Test 08/11/18 17:55 08/11/18 20:59 08/12/18 01:37 08/12/18 03:40 Bedside Glucose 235 H 167 126 White Blood Count 28.6 #H Red Blood Count 3.09 L Hemoglobin 8.3 #L Hematocrit 26.1 L Mean Corpuscular 84.5 Volume Mean Corpuscular 26.9 L Hemoglobin Mean Corpuscular 31.8 L Hemoglobin Concen t Red Cell 17.8 H Distribution Width Platelet Count 206 Mean Platelet 9.2 Volume Immature 0.800 H Granulocytes % Neutrophils % 87.6 H Lymphocytes % 5.6 L Monocytes % 5.6 Eosinophils % 0.2 Basophils % 0.2 Nucleated Red 0.0 Blood Cells % Immature 0.240 H Granulocytes # Neutrophils # 25.0 H Lymphocytes # 1.6 Monocytes # 1.6 H Eosinophils # 0.1 Basophils # 0.1 Nucleated Red 0.0 Blood Cells # Sodium Level 137 Potassium Level 4.6 Chloride Level 105 Carbon Dioxide 25 Level Anion Gap 7 Blood Urea 29 H Nitrogen Creatinine 2.11 H Est Glomerular 31 L Filtrat Rate mL/min Glucose Level 107 Lactic Acid Level 1.4 Calcium Level 8.0 L Phosphorus Level 6.3 H Magnesium Level 1.9 Test 08/12/18 05:00 08/12/18 06:49 08/12/18 08:35 Blood Gas Blood arterial Specimen Source Arterial Blood 08/12/2018 4:00:4 Date Drawn 9 AM Arterial Blood pH 7.389 (Temp corrected) Arterial Blood 39.6 pCO2 (Temp correct) Arterial Blood 78.8 L pO2 (Temp corrected) Arterial Blood 23.4 HCO3 Arterial Blood -1.4 Base Excess Arterial Blood 95.2 Oxygen Saturation Mikey Test N/A Arterial Blood A-Line Gas Puncture Site Arterial 0.5 Blood Carboxyhemo globin Arterial Blood 0.5 Methemoglobin Blood Gas A-a O2 88.6 H Differential Oxyhemoglobin 94.2 Percent Blood Gas 37.0 Temperature Blood Gas 18.0 Respiration Rate Blood Gas Actual 18 Respiration Rate Blood Gas VENT - AC Modality FiO2 30.0 Blood Gas Tidal 500.0 Volume Blood Gas 27.0 Inspiratory Pressure Blood Gas UP Notified Whom Blood Gas 08/12/2018 4:20:3 Notified Time 0 AM Bedside Glucose 110 124 Medications Medication Current Medications IV Flush (NS 3 ml) 3 ml PER PROTOCOL IV ; Start 08/03/18 at 00:00 Ondansetron HCl (Zofran Inj) 4 mg Q6H PRN IV NAUSEA/VOMITING Last administered on 08/03/18at 03:48; Admin Dose 4 MG; Start 08/03/18 at 00:00 Nitroglycerin (Nitroglycerin (Sl Tab) 0.4 Mg) 1 tab Q5M PRN SL .CHEST PAIN; Start 08/03/18 at 00:00 Acetaminophen (Tylenol Tab) 650 mg Q6H PRN PO .PAIN 1-3 OR TEMP Last administered on 08/04/18at 03:49; Admin Dose 650 MG; Start 08/03/18 at 00:00 Docusate Sodium (Colace) 100 mg Q12H PRN PO .CONSTIPATION; Start 08/03/18 at 00:00 Bisacodyl (Dulcolax) 5 mg DAILY PRN PO .CONSTIPATION; Start 08/03/18 at 00:00 Ascorbic Acid (Vitamin C) 500 mg DAILY PO Last administered on 08/12/18at 09:39; Admin Dose 500 MG; Start 08/03/18 at 09:00 Chlorhexidine Gluconate (Peridex) 15 ml Q12H MM Last administered on 08/11/18 23:53; Admin Dose 15 ML; Start 08/03/18 at 00:00 Ferrous Sulfate (Ferrous Sulfate (Ec)) 325 mg DAILY PO Last administered on 08/12/18 09:39; Admin Dose 325 MG; Start 08/03/18 at 09:00 Pantoprazole (Protonix Tab) 40 mg AC BREAKFAST PO Last administered on 08/12/18 06:46; Admin Dose 40 MG; Start 08/03/18 at 07:25 Sucralfate (Carafate) 1 gm AC MEALS AND BEDTIME PO Last administered on 08/12/18 06:46; Admin Dose 1 GM; Start 08/03/18 at 07:25 Albuterol (Proventil 0.083% (Neb)) 2.5 mg Q4H RESP THERAPY PRN NEB TRACHEOSTOMY Last administered on 08/12/18 07:56; Admin Dose 2.5 MG; Start 08/02/18 at 23:45 Multivitamins/ Minerals (Theragran-M) 1 tab DAILY PO Last administered on 08/12/18 09:39; Admin Dose 1 TAB; Start 08/03/18 at 09:00 Miscellaneous Information 1 ea NOTE XX ; Start 08/02/18 at 23:45 Glucose (Glutose) 15 gm Q15M PRN PO DECREASED GLUCOSE; Start 08/02/18 at 23:45 Glucose (Glutose) 22.5 gm Q15M PRN PO DECREASED GLUCOSE; Start 08/02/18 at 23:45 Dextrose (D50w Syringe) 25 ml Q15M PRN IV DECREASED GLUCOSE; Start 08/02/18 at 23:45 Dextrose (D50w Syringe) 50 ml Q15M PRN IV DECREASED GLUCOSE; Start 08/02/18 at 23:45 Glucagon (Glucagen) 1 mg Q15M PRN IM DECREASED GLUCOSE; Start 08/02/18 at 23:45 Glucose (Glutose) 15 gm Q15M PRN BUCCAL DECREASED GLUCOSE; Start 08/02/18 at 23:45 Simethicone (Mylicon) 80 mg Q8H PRN PO DISTENSION/GAS/BLOATING Last administered on 08/04/18 01:55; Admin Dose 80 MG; Start 08/03/18 at 04:30 Amlodipine Besylate (Norvasc) 5 mg DAILY PO Last administered on 08/11/18 11:50; Admin Dose 5 MG; Start 08/03/18 at 09:00 Fluconazole (Diflucan) 100 mg DAILY PO Last administered on 08/12/18 09:39; Admin Dose 100 MG; Start 08/03/18 at 09:00 Linezolid (Zyvox) 600 mg BID PO Last administered on 08/12/18 09:39; Admin Dose 600 MG; Start 08/03/18 at 09:00 Amikacin Sulfate (Amikacin Iv Per Pharmacy) AMIKACIN PER PHARMACY NOTE XX ; Start 08/03/18 at 11:30 Insulin Aspart (Novolog Insulin Pen) NOVOLOG *MILD* ALGORI... AC MEALS AND BEDTIME SC Last administered on 08/11/18 21:02; Admin Dose 1 UNIT; Start 08/03/18 at 17:25 Linagliptin (Tradjenta) 5 mg DAILY PO Last administered on 08/12/18 09:39; Admin Dose 5 MG; Start 08/04/18 at 09:00 Diagnostic Test (Pha) (Accu-Chek) 1 ea 02 XX Last administered on 08/05/18 01:28; Admin Dose 1 EA; Start 08/04/18 at 02:00 Insulin Aspart (Novolog Insulin Pen) 10 unit WITH MEALS SC Last administered on 08/11/18 19:56; Admin Dose 10 UNIT; Start 08/03/18 at 17:55 Acetylcysteine (Mucomyst) 2 ml Q8H RESP THERAPY NEB Last administered on 08/12/18 07:56; Admin Dose 2 ML; Start 08/04/18 at 08:00 Collagenase (Santyl) 1 applic DAILY TOP Last administered on 08/12/18 09:40; Admin Dose 1 APPLIC; Start 08/04/18 at 09:00 Amikacin Sulfate 500 mg/Sodium Chloride 102 ml @ 101.6 mls/ hr Q48H IVPB Last administered on 08/11/18 23:45; Admin Dose 101.6 MLS/HR; Start 08/05/18 at 20:00 Diphenhydramine HCl (Benadryl) 25 mg Q6H PRN IV rash or itching Last administered on 08/10/18 22:22; Admin Dose 25 MG; Start 08/05/18 at 11:00 Metoprolol Tartrate (Lopressor) 25 mg BID PO Last administered on 08/12/18 09:43; Admin Dose 25 MG; Start 08/06/18 at 13:30 Insulin Glargine (Lantus) 18 units DAILY@2000 SC Last administered on 08/11/18 20:18; Admin Dose 18 UNITS; Start 08/07/18 at 20:00 Nystatin (Nystatin Powder) 1 applic BID TOP Last administered on 08/12/18 09:40; Admin Dose 1 APPLIC; Start 08/08/18 at 12:30 Enoxaparin Sodium (Lovenox) 30 mg Q24H SC Last administered on 08/09/18 11:42; Admin Dose 30 MG; Start 08/08/18 at 12:30; Status Hold Enoxaparin Sodium (Lovenox) 80 mg Q24H SC Last administered on 08/09/18 11:41; Admin Dose 80 MG; Start 08/08/18 at 12:30; Status Hold Furosemide (Lasix) 40 mg BID IV Last administered on 08/12/18 09:39; Admin Dose 40 MG; Start 08/09/18 at 09:00 Digoxin (Digoxin) 0.125 mg DAILY@13 PO Last administered on 08/11/18 14:40; Admin Dose 0.125 MG; Start 08/10/18 at 13:00 Morphine Sulfate (morphine) 4 mg Q2H PRN IV .PAIN 7-10; Start 08/12/18 at 11:30; Status KATERIN LAGUNAS NP Aug 12, 2018 10:14
--- NOTE | 2018-08-12 10:55 | CONS ---
Consult Date/Type/Reason Admit Date/Time Aug 02, 2018 at 22:00 Initial Consult Date 08/03/18 Requesting Provider: DEJUAN ORTIZ MD, [facility] Date/Time of Note DATE: 08/12/18 TIME: 10:52 Subjective No events overnight. POD#1 s/p thoracotomy with Elloeser flap creation. Objective Vitals Vital Signs Date Temp Pulse Resp B/P (MAP) Pulse Ox O2 O2 Flow FiO2 Time Delivery Rate 08/12/18 98 20 128/52 97 08:30 (77) 08/12/18 97.6 Mechanical 08:00 Ventilator Trach Collar 08/12/18 30 04:59 Intake and Output 08/11/18 08/11/18 08/12/18 1515:00 23:00 07:00 IntakeIntake Total 130 ml 1000 ml 720 ml OutputOutput Total 30 ml 300 ml BalanceBalance 100 ml 700 ml 720 ml Exam HEENT: Neck supple; no JVD; no LAD; + trach CVS: Tachy, S1 and S2 CHEST: Diminished R breath sounds ABD: Soft, NT, + BS EXT: No c/c; + edema Results/Medications Result Diagram: 08/12/18 0340 08/12/18 0340 Results 24 hrs Laboratory Tests Test 08/11/18 11:55 08/11/18 15:00 08/11/18 15:43 08/11/18 17:55 Bedside Glucose 184 235 H White Blood Count 21.7 #H Red Blood Count 2.66 L Hemoglobin 6.8 *L Hematocrit 22.0 L Mean Corpuscular 82.7 Volume Mean Corpuscular 25.6 L Hemoglobin Mean Corpuscular 30.9 L Hemoglobin Concen t Red Cell 17.9 H Distribution Width Platelet Count 209 # Mean Platelet 8.9 Volume Immature 1.400 H Granulocytes % Neutrophils % Segmented 92 H Neutrophils % (Manual) Band Neutrophils 7 H % (Manual) Lymphocytes % Lymphocytes % 1 L (Manual) Monocytes % Eosinophils % Basophils % Nucleated Red 0.0 Blood Cells % Immature 0.310 H Granulocytes # Neutrophils # Neutrophils # 20.3 H (Manual) Band Neutrophils 1.5 H # Lymphocytes 0.2 L (Manual) Lymphocytes # Monocytes # Eosinophils # Basophils # Nucleated Red Blood Cells # Platelet Estimate NORMAL Polychromasia 3+ Hypochromasia 2+ Anisocytosis 1+ Microcytosis 1+ Prothrombin Time 14.4 Prothrombin Time 1.1 Ratio INR International 1.11 Normalized Ratio Activated 30.3 Partial Thrombopl ast Time Fibrinogen 486.0 H Test 08/11/18 20:59 08/12/18 01:37 08/12/18 03:40 08/12/18 05:00 Bedside Glucose 167 126 White Blood Count 28.6 #H Red Blood Count 3.09 L Hemoglobin 8.3 #L Hematocrit 26.1 L Mean Corpuscular 84.5 Volume Mean Corpuscular 26.9 L Hemoglobin Mean Corpuscular 31.8 L Hemoglobin Concen t Red Cell 17.8 H Distribution Width Platelet Count 206 Mean Platelet 9.2 Volume Immature 0.800 H Granulocytes % Neutrophils % 87.6 H Lymphocytes % 5.6 L Monocytes % 5.6 Eosinophils % 0.2 Basophils % 0.2 Nucleated Red 0.0 Blood Cells % Immature 0.240 H Granulocytes # Neutrophils # 25.0 H Lymphocytes # 1.6 Monocytes # 1.6 H Eosinophils # 0.1 Basophils # 0.1 Nucleated Red 0.0 Blood Cells # Sodium Level 137 Potassium Level 4.6 Chloride Level 105 Carbon Dioxide 25 Level Anion Gap 7 Blood Urea 29 H Nitrogen Creatinine 2.11 H Est Glomerular 31 L Filtrat Rate mL/min Glucose Level 107 Lactic Acid Level 1.4 Calcium Level 8.0 L Phosphorus Level 6.3 H Magnesium Level 1.9 Blood Gas Blood arterial Specimen Source Arterial Blood 08/12/2018 4:00:4 Date Drawn 9 AM Arterial Blood pH 7.389 (Temp corrected) Arterial Blood 39.6 pCO2 (Temp correct) Arterial Blood 78.8 L pO2 (Temp corrected) Arterial Blood 23.4 HCO3 Arterial Blood -1.4 Base Excess Arterial Blood 95.2 Oxygen Saturation Mikey Test N/A Arterial Blood A-Line Gas Puncture Site Arterial 0.5 Blood Carboxyhemo globin Arterial Blood 0.5 Methemoglobin Blood Gas A-a O2 88.6 H Differential Oxyhemoglobin 94.2 Percent Blood Gas 37.0 Temperature Blood Gas 18.0 Respiration Rate Blood Gas Actual 18 Respiration Rate Blood Gas VENT - AC Modality FiO2 30.0 Blood Gas Tidal 500.0 Volume Blood Gas 27.0 Inspiratory Pressure Blood Gas UP Notified Whom Blood Gas 08/12/2018 4:20:3 Notified Time 0 AM Test 08/12/18 06:49 08/12/18 08:35 Bedside Glucose 110 124 Home Meds Reported Medications Amlodipine Besylate* (Amlodipine Besylate*) 2.5 Mg Tablet, 5 MG PO DAILY, #30 TAB 08/03/18 Acetylcysteine* (Mucomyst*) 4 Ml Soln, 2 ML NEB Q8, EA 08/03/18 Sodium Ferric Gluconate Complx (FERRLECIT 62.5 MG/5 ML VIAL) 62.5 Mg/5 Ml Soln, 125 MG IV DAILY 08/03/18 Loratadine (Loratadine) 10 Mg Capsule, 10 MG PO DAILY, CAP 08/03/18 Nystatin* (Nystatin*) 15 Gm Cr, 1 APPLIC TOP BID, #1 TUB 08/03/18 Metoprolol Tartrate* (Lopressor*) 25 Mg Tablet, 25 MG PO BID, #60 TAB 08/03/18 Linezolid* (Zyvox*) 600 Mg Tablet, 600 MG PO BID, TAB 08/03/18 Linagliptin (TRADJENTA) 5 Mg Tablet, 5 MG PO DAILY, TAB 08/03/18 Fluconazole* (Fluconazole*) 100 Mg Tablet, 100 MG PO DAILY, TAB 08/03/18 Amikacin Sulfate* (Amikacin* Pediatric IV Syringe) 5 Mg/Ml Soln, 400 MG IV q48hr, EA 08/03/18 Insulin Aspart* (Novolog Insulin Pen*) 100 Unit/Ml Soln, 0 SC .SLIDING SCALE AC, EA OR 5 UNITS AC MEALS TID 07/18/18 Insulin Glargine,Hum.rec.anlog (Basaglar Kwikpen U-100) 100 Unit/1 Ml Insuln.pen, 28 UNIT SC QHS, EA 07/18/18 Insulin Glargine,Hum.rec.anlog (Basaglar Kwikpen U-100) 100 Unit/1 Ml Insuln.pen, 18 UNIT SC QAM, EA 07/18/18 Acetaminophen* (Acetaminophen*) 500 MG Extra Strength Tablet, 1000 MG PO Q8H PRN for PAIN, TAB 07/18/18 Acetaminophen* (Tylenol*) 325 Mg Tablet, 650 MG PO Q4H PRN for MILD PAIN LEVEL 1-3, TAB AND FEVER 07/18/18 Ascorbic Acid (Vitamin C) 500 Mg Tab, 500 MG PO DAILY, TAB 07/18/18 Lorazepam* (Lorazepam*) 1 Mg Tablet, 1 MG PO Q6 PRN for ANXIETY, #60 TAB 07/18/18 Sucralfate* (Carafate*) 1 Gm Tab, 1 GM PO AC MEALS AND BEDTIME, TAB 07/18/18 Rivaroxaban* (Xarelto*) 15 Mg Tablet, 15 MG PO WITH DINNER, TAB 07/18/18 Multivitamin with Minerals (Multivitamins with Minerals) 1 Each Tablet, 1 EACH PO DAILY, TAB 07/18/18 Pantoprazole* (Pantoprazole*) 40 Mg Tablet.dr, 40 MG PO AC BREAKFAST, TAB 07/18/18 Polyethylene Glycol* (Miralax*) 17 Gm Powd.pack, 17 GM PO DAILY, #30 PACKET 07/18/18 Ferrous Sulfate* (Ferrous Sulfate*) 325 Mg Tabec, 325 MG PO DAILY, TAB 07/18/18 Digoxin* (Digitek*) 250 Mcg Tablet, 0.25 MG PO DAILY, TAB HOLD IF HR<60 07/18/18 Cranberry Fruit (CRANBERRY) 450 Mg Tablet, 450 MG PO DAILY, TAB 07/18/18 Chlorhexidine Gluconate (Peridex) 473 Ml Mouthwash, 15 ML MM Q12H, BOTTLE 07/18/18 Ipratropium-Albuterol (Ipratropium-Albuterol) 0.5-3 Mg/3 Ml Ampul.neb, 3 ML INHALATION Q4H PRN for VIA TRACHEOSTOMY, #30 VIAL 07/18/18 Albuterol Sulfate* (Albuterol Sulfate* Neb) 0.083%-3 Ml Neb, 2.5 MG NEB Q4H PRN for TRACHEOSTOMY, #30 VIAL AND Q6H NEEDED 07/18/18 Medications Current Medications IV Flush (NS 3 ml) 3 ml PER PROTOCOL IV ; Start 08/03/18 at 00:00 Ondansetron HCl (Zofran Inj) 4 mg Q6H PRN IV NAUSEA/VOMITING Last administered on 08/03/18at 03:48; Admin Dose 4 MG; Start 08/03/18 at 00:00 Nitroglycerin (Nitroglycerin (Sl Tab) 0.4 Mg) 1 tab Q5M PRN SL .CHEST PAIN; Start 08/03/18 at 00:00 Acetaminophen (Tylenol Tab) 650 mg Q6H PRN PO .PAIN 1-3 OR TEMP Last administered on 08/04/18 03:49; Admin Dose 650 MG; Start 08/03/18 at 00:00 Docusate Sodium (Colace) 100 mg Q12H PRN PO .CONSTIPATION; Start 08/03/18 at 00:00 Bisacodyl (Dulcolax) 5 mg DAILY PRN PO .CONSTIPATION; Start 08/03/18 at 00:00 Ascorbic Acid (Vitamin C) 500 mg DAILY PO Last administered on 08/12/18 09:39; Admin Dose 500 MG; Start 08/03/18 at 09:00 Chlorhexidine Gluconate (Peridex) 15 ml Q12H MM Last administered on 08/11/18 23:53; Admin Dose 15 ML; Start 08/03/18 at 00:00 Ferrous Sulfate (Ferrous Sulfate (Ec)) 325 mg DAILY PO Last administered on 08/12/18 09:39; Admin Dose 325 MG; Start 08/03/18 at 09:00 Pantoprazole (Protonix Tab) 40 mg AC BREAKFAST PO Last administered on 08/12/18 06:46; Admin Dose 40 MG; Start 08/03/18 at 07:25 Sucralfate (Carafate) 1 gm AC MEALS AND BEDTIME PO Last administered on 08/12/18 06:46; Admin Dose 1 GM; Start 08/03/18 at 07:25 Albuterol (Proventil 0.083% (Neb)) 2.5 mg Q4H RESP THERAPY PRN NEB TRACHEOSTOMY Last administered on 08/12/18 07:56; Admin Dose 2.5 MG; Start 08/02/18 at 23:45 Multivitamins/ Minerals (Theragran-M) 1 tab DAILY PO Last administered on 08/12/18 09:39; Admin Dose 1 TAB; Start 08/03/18 at 09:00 Miscellaneous Information 1 ea NOTE XX ; Start 08/02/18 at 23:45 Glucose (Glutose) 15 gm Q15M PRN PO DECREASED GLUCOSE; Start 08/02/18 at 23:45 Glucose (Glutose) 22.5 gm Q15M PRN PO DECREASED GLUCOSE; Start 08/02/18 at 23:45 Dextrose (D50w Syringe) 25 ml Q15M PRN IV DECREASED GLUCOSE; Start 08/02/18 at 23:45 Dextrose (D50w Syringe) 50 ml Q15M PRN IV DECREASED GLUCOSE; Start 08/02/18 at 23:45 Glucagon (Glucagen) 1 mg Q15M PRN IM DECREASED GLUCOSE; Start 08/02/18 at 23:45 Glucose (Glutose) 15 gm Q15M PRN BUCCAL DECREASED GLUCOSE; Start 08/02/18 at 23:45 Simethicone (Mylicon) 80 mg Q8H PRN PO DISTENSION/GAS/BLOATING Last administered on 08/04/18 01:55; Admin Dose 80 MG; Start 08/03/18 at 04:30 Amlodipine Besylate (Norvasc) 5 mg DAILY PO Last administered on 08/11/18 11:50; Admin Dose 5 MG; Start 08/03/18 at 09:00 Fluconazole (Diflucan) 100 mg DAILY PO Last administered on 08/12/18 09:39; Admin Dose 100 MG; Start 08/03/18 at 09:00 Linezolid (Zyvox) 600 mg BID PO Last administered on 08/12/18 09:39; Admin Dose 600 MG; Start 08/03/18 at 09:00 Amikacin Sulfate (Amikacin Iv Per Pharmacy) AMIKACIN PER PHARMACY NOTE XX ; Start 08/03/18 at 11:30 Insulin Aspart (Novolog Insulin Pen) NOVOLOG *MILD* ALGORI... AC MEALS AND BEDTIME SC Last administered on 08/11/18 21:02; Admin Dose 1 UNIT; Start 08/03/18 at 17:25 Linagliptin (Tradjenta) 5 mg DAILY PO Last administered on 08/12/18 09:39; Admin Dose 5 MG; Start 08/04/18 at 09:00 Diagnostic Test (Pha) (Accu-Chek) 1 ea 02 XX Last administered on 08/05/18 01:28; Admin Dose 1 EA; Start 08/04/18 at 02:00 Insulin Aspart (Novolog Insulin Pen) 10 unit WITH MEALS SC Last administered on 08/11/18 19:56; Admin Dose 10 UNIT; Start 08/03/18 at 17:55 Acetylcysteine (Mucomyst) 2 ml Q8H RESP THERAPY NEB Last administered on 08/12/18 07:56; Admin Dose 2 ML; Start 08/04/18 at 08:00 Collagenase (Santyl) 1 applic DAILY TOP Last administered on 08/12/18 09:40; Admin Dose 1 APPLIC; Start 08/04/18 at 09:00 Amikacin Sulfate 500 mg/Sodium Chloride 102 ml @ 101.6 mls/ hr Q48H IVPB Last administered on 08/11/18 23:45; Admin Dose 101.6 MLS/HR; Start 08/05/18 at 20:00 Diphenhydramine HCl (Benadryl) 25 mg Q6H PRN IV rash or itching Last administered on 08/10/18 22:22; Admin Dose 25 MG; Start 08/05/18 at 11:00 Metoprolol Tartrate (Lopressor) 25 mg BID PO Last administered on 08/12/18 09:43; Admin Dose 25 MG; Start 08/06/18 at 13:30 Insulin Glargine (Lantus) 18 units DAILY@2000 SC Last administered on 08/11/18 20:18; Admin Dose 18 UNITS; Start 08/07/18 at 20:00 Nystatin (Nystatin Powder) 1 applic BID TOP Last administered on 08/12/18 09:40; Admin Dose 1 APPLIC; Start 08/08/18 at 12:30 Enoxaparin Sodium (Lovenox) 30 mg Q24H SC Last administered on 08/09/18 11:42; Admin Dose 30 MG; Start 08/08/18 at 12:30; Status Hold Enoxaparin Sodium (Lovenox) 80 mg Q24H SC Last administered on 08/09/18 11:41; Admin Dose 80 MG; Start 08/08/18 at 12:30; Status Hold Furosemide (Lasix) 40 mg BID IV Last administered on 08/12/18 09:39; Admin Dose 40 MG; Start 08/09/18 at 09:00 Digoxin (Digoxin) 0.125 mg DAILY@13 PO Last administered on 08/11/18 14:40; Admin Dose 0.125 MG; Start 08/10/18 at 13:00 Morphine Sulfate (morphine) 4 mg Q2H PRN IV .PAIN 7-10; Start 08/12/18 at 10:30 Assessment/Plan Assessment/Plan (Daily) IMP: 1. Right Empyema thoracic--s/p thoracotomy and Elloesser flap 2. VDRF 3. CKD 4. Volume Overload 5. Sepsis 6. Cirrhosis 7. Leukocytosis RECS: 1. Vent support 2. Abx per ID 3. Follow leukocytosis 4. Post-op wound care 5. Am labs/CXR 6. Optimize nutrition 40 min cc time SEAN GUTHRIE MD Aug 12, 2018 10:55
[2018-08-12] MEDS: morphine 4 MG/ML VIAL IV PRN (11:44)
[2018-08-12] MEDS: DIGOXIN 0.125 MG TAB PO SCH (13:16)
[2018-08-12] MEDS: CHLORHEXIDINE GLUCONATE 15 ML UD CUP MM SCH (13:16)
[2018-08-12] MEDS: INSULIN GLARGINE [LANTus] (100 UNITS/ML) SYG SC SCH (21:02)
[2018-08-13] VITALS (22 sets, daily range): BP systolic 113–129; BP diastolic 56–58; PULSE 68–84; RESP 18–23
[2018-08-13] MEDS: CHLORHEXIDINE GLUCONATE 15 ML UD CUP MM SCH ×2 (00:41→13:22)
[2018-08-13] MEDS: NYSTATIN 30 GM POWDER BTL TOP SCH ×3 (00:41→21:00)
[2018-08-13] MEDS: morphine 4 MG/ML VIAL IV PRN ×2 (01:44→09:48)
[2018-08-13] MEDS: ACETAMINOPHEN 325 MG TAB PO PRN (01:44)
[2018-08-13] MEDS: ACCU-CHEK XX SCH (02:00)
[2018-08-13] MEDS: INSULIN ASPART [NOVOLOG] 3 ML PEN SC SCH ×7 (07:25→21:00)
[2018-08-13] MEDS: ACETYLCYSTEINE 20% 4 ML VIAL NEB SCH ×3 (08:00→23:42)
[2018-08-13] MEDS: LINAGLIPTIN 5 MG TABLET PO SCH (08:27)
[2018-08-13] MEDS: FERROUS SULFATE (EC) 325 MG TAB PO SCH (08:27)
[2018-08-13] MEDS: MULTIVITAMINS/MINERALS TAB PO SCH (08:27)
[2018-08-13] MEDS: ZYVOX 600 MG TAB PO SCH ×2 (08:27→21:26)
[2018-08-13] MEDS: FLUCONAZOLE 100 MG TAB PO SCH (08:28)
[2018-08-13] MEDS: PANTOPRAZOLE (EC) 40 MG TAB PO SCH (08:28)
[2018-08-13] MEDS: SUCRALFATE 1 GM TAB PO SCH ×4 (08:28→21:27)
[2018-08-13] MEDS: METOPROLOL 25 MG TAB PO SCH ×2 (08:28→21:27)
[2018-08-13] MEDS: ASCORBIC ACID 500 MG TAB PO SCH (08:28)
[2018-08-13] MEDS: FUROSEMIDE 40 MG INJ IV SCH ×2 (08:29→21:27)
[2018-08-13] MEDS: AMLODIPINE 5 MG TAB PO SCH (08:29)
[2018-08-13] MEDS: COLLAGENASE 5 GM (UD JAR) TOP SCH (08:33)
--- NOTE | 2018-08-13 09:26 | PN ---
DATE: 08/13/2018 SUBJECTIVE: The patient was transferred from intensive care unit to telemetry. Overnight, the keyonnae nt was noted to have bleeding from the chest tube site. No other events noted. OBJECTIVE: VITAL SIGNS: Blood pressure is 118/57, respirations 20, pulse 78, temperature 98.0. HEENT: Head is normocephalic. NECK: Supple. HEART: Regular rate. LUNGS: Show diminished breath sounds at the base. IMAGING: The patient's chest tubes were noted. ABDOMEN: Soft, nontender to palpation without rebound or guarding. EXTREMITIES: Negative for clubbing, cyanosis. Positive edema. DERMATOLOGIC: No rashes. MUSCULOSKELETAL: No joint effusion. NEUROLOGIC: No change in exam. MEDICATIONS: Reviewed. LABORATORY DATA: Currently pending. ASSESSMENT AND PLAN: 1. Chronic kidney disease, stage IV, with baseline creatinine of around 2.2 to 2.3 mg/dL. The patie nt's renal function is currently at baseline. Continue current treatment plan, supportive care, yris lly dose all medicines. 2. Volume overload secondary to acute diastolic heart failure, cirrhosis. Continue current diuretic regimen. The patient was given 1 dose of metolazone yesterday. Monitor electrolytes and renal func tion closely. 3. Mineral bone disorder, monitor calcium and phosphorus levels. 4. Anemia. Continue to monitor hemoglobin and hematocrit levels. 5. Ventilatory dependent respiratory failure. Vent settings and ABG was reviewed. Continue to [facility]. 6. Right lung opacification. The patient is status post thoracotomy postop day #2. 7. Continue to monitor. Follow up CT surgery. 8. Arrhythmia. Continue medical management. 9. Diabetes. Continue current insulin regimen. 10. Sepsis. The patient is completing course. 11. Cirrhosis. Continue current treatment plan. Dictated By: LORY KAY DO NR/NTS Conf#: [id number] DID#: [id number] CC: VARSHA PEARSON MD; JEIMY LOMAS; NATALIE ALAN MD;*EndCC*
--- NOTE | 2018-08-13 10:00 | PN ---
Date/Time of Note Date/Time of Note DATE: 08/13/18 TIME: 09:59 Assessment/Plan Lines/Catheters IV Catheter Type (from Nrsg): Mid Line Vergara in Place (from Nrsg): No Assessment/Plan Assessment/Plan s/p eloesser flap start dressing changes Subjective 24 Hr Interval Summary Constitutional: improved Pain Control: well controlled Exam/Review of Systems Vital Signs Vitals Vital Signs Date Temp Pulse Resp B/P (MAP) Pulse Ox O2 O2 Flow FiO2 Time Delivery Rate 08/13/18 83 08:58 08/13/18 20 98 30 07:50 08/13/18 98.0 118/57 07:42 (77) 08/12/18 Mechanical 13:00 Ventilator Intake and Output 08/12/18 08/12/18 08/13/18 1515:00 23:00 07:00 IntakeIntake Total 680 ml 400 ml 500 ml OutputOutput Total 250 ml 300 ml 1200 ml BalanceBalance 430 ml 100 ml -700 ml Exam Constitutional: alert Respiratory: other (trach on vent dressing changed) Neurological: LIFE MANAGER II-XII intact Results Result Diagram: 08/12/18 0340 08/12/18 0340 VIVIAN PRITCHETT MD Aug 13, 2018 10:00
--- NOTE | 2018-08-13 10:22 | CONS ---
Assessment/Plan Assessment/Plan Assessment/Plan (Daily) Ventilator setting; AC of 18, tidal volume 500, PEEP of 5, 40% FiO2. Assessment and recommendations; 1. Patient with history of VDR F admitted for right lung decortication status post surgery. Chest x-ray showing improvement in aeration of the right lung. Patient currently on appropriate antimicrobial regimen. 2. Anemia. 3. History of hypertension and diabetes. 4. Stable chronic renal insufficiency. Continue current supportive care. Consultation Date/Type/Reason Admit Date/Time Aug 02, 2018 at 22:00 Initial Consult Date 08/03/18 Type of Consult Pulmonary Requesting Provider: DEJUAN ORTIZ MD, [facility] Date/Time of Note DATE: 08/13/18 TIME: 10:20 24 HR Interval Summary Free Text/Dictation Patient's condition is stable. Underwent right lung decortication. Surgery was uneventful. General exam; elderly male, on ventilator via tracheostomy, awake and alert. Currently in no distress. Exam/Review of Systems Exam Vitals Vital Signs Date Temp Pulse Resp B/P (MAP) Pulse Ox O2 O2 Flow FiO2 Time Delivery Rate 08/13/18 80 18 99 30 09:20 08/13/18 98.0 118/57 07:42 (77) 08/12/18 Mechanical 13:00 Ventilator Intake and Output 08/12/18 08/12/18 08/13/18 1414:59 22:59 06:59 IntakeIntake Total 800 ml 400 ml 500 ml OutputOutput Total 250 ml 300 ml 1200 ml BalanceBalance 550 ml 100 ml -700 ml Exam HEENT exam; supple neck, no JVD. No lymphadenopathy. Midline trachea. No thyromegaly. Tracheostomy in place. Insertion site is clean. Patient is edentulous. Chest exam; diminished breath sounds right lung. Dressing applied to right chest wall. Left lung is clear. S1-S2 audible, no murmurs. Regular rhythm. Abdomen exam; soft, no organomegaly. Bowel sound audible. Nontender. Extremity exam; no peripheral edema or clubbing. CONTAINER FINISHING INSPECTOR exam; no focal deficit. Results Result Diagram: 08/12/18 0340 08/12/18 0340 Results 24hrs Laboratory Tests Test 08/12/18 11:42 08/12/18 17:54 08/12/18 20:59 08/13/18 08:20 Bedside Glucose 129 178 121 91 Medications Medication Current Medications IV Flush (NS 3 ml) 3 ml PER PROTOCOL IV ; Start 08/03/18 at 00:00 Ondansetron HCl (Zofran Inj) 4 mg Q6H PRN IV NAUSEA/VOMITING Last administered on 08/03/18 03:48; Admin Dose 4 MG; Start 08/03/18 at 00:00 Nitroglycerin (Nitroglycerin (Sl Tab) 0.4 Mg) 1 tab Q5M PRN SL .CHEST PAIN; Start 08/03/18 at 00:00 Acetaminophen (Tylenol Tab) 650 mg Q6H PRN PO .PAIN 1-3 OR TEMP Last administered on 08/13/18 01:44; Admin Dose 650 MG; Start 08/03/18 at 00:00 Docusate Sodium (Colace) 100 mg Q12H PRN PO .CONSTIPATION; Start 08/03/18 at 00:00 Bisacodyl (Dulcolax) 5 mg DAILY PRN PO .CONSTIPATION; Start 08/03/18 at 00:00 Ascorbic Acid (Vitamin C) 500 mg DAILY PO Last administered on 08/13/18 08:28; Admin Dose 500 MG; Start 08/03/18 at 09:00 Chlorhexidine Gluconate (Peridex) 15 ml Q12H MM Last administered on 08/13/18 00:41; Admin Dose 15 ML; Start 08/03/18 at 00:00 Ferrous Sulfate (Ferrous Sulfate (Ec)) 325 mg DAILY PO Last administered on 08/13/18 08:27; Admin Dose 325 MG; Start 08/03/18 at 09:00 Pantoprazole (Protonix Tab) 40 mg AC BREAKFAST PO Last administered on 08/13/18 08:28; Admin Dose 40 MG; Start 08/03/18 at 07:25 Sucralfate (Carafate) 1 gm AC MEALS AND BEDTIME PO Last administered on 08/13/18 08:28; Admin Dose 1 GM; Start 08/03/18 at 07:25 Albuterol (Proventil 0.083% (Neb)) 2.5 mg Q4H RESP THERAPY PRN NEB TRACHEOSTOMY Last administered on 08/12/18 23:45; Admin Dose 2.5 MG; Start 08/02/18 at 23:45 Multivitamins/ Minerals (Theragran-M) 1 tab DAILY PO Last administered on 08/13/18 08:27; Admin Dose 1 TAB; Start 08/03/18 at 09:00 Miscellaneous Information 1 ea NOTE XX ; Start 08/02/18 at 23:45 Glucose (Glutose) 15 gm Q15M PRN PO DECREASED GLUCOSE; Start 08/02/18 at 23:45 Glucose (Glutose) 22.5 gm Q15M PRN PO DECREASED GLUCOSE; Start 08/02/18 at 23:4 5 Dextrose (D50w Syringe) 25 ml Q15M PRN IV DECREASED GLUCOSE; Start 08/02/18 at 23:45 Dextrose (D50w Syringe) 50 ml Q15M PRN IV DECREASED GLUCOSE; Start 08/02/18 at 23:45 Glucagon (Glucagen) 1 mg Q15M PRN IM DECREASED GLUCOSE; Start 08/02/18 at 23:45 Glucose (Glutose) 15 gm Q15M PRN BUCCAL DECREASED GLUCOSE; Start 08/02/18 at 23:45 Simethicone (Mylicon) 80 mg Q8H PRN PO DISTENSION/GAS/BLOATING Last administered on 08/04/18at 01:55; Admin Dose 80 MG; Start 08/03/18 at 04:30 Amlodipine Besylate (Norvasc) 5 mg DAILY PO Last administered on 08/13/18 08:29; Admin Dose 5 MG; Start 08/03/18 at 09:00 Fluconazole (Diflucan) 100 mg DAILY PO Last administered on 08/13/18 08:28; Admin Dose 100 MG; Start 08/03/18 at 09:00 Linezolid (Zyvox) 600 mg BID PO Last administered on 08/13/18 08:27; Admin Dose 600 MG; Start 08/03/18 at 09:00 Amikacin Sulfate (Amikacin Iv Per Pharmacy) AMIKACIN PER PHARMACY NOTE XX ; Start 08/03/18 at 11:30 Insulin Aspart (Novolog Insulin Pen) NOVOLOG *MILD* ALGORI... AC MEALS AND BEDTIME SC Last administered on 08/12/18 18:08; Admin Dose 1 UNIT; Start 08/03/18 at 17:25 Linagliptin (Tradjenta) 5 mg DAILY PO Last administered on 08/13/18 08:27; Admin Dose 5 MG; Start 08/04/18 at 09:00 Diagnostic Test (Pha) (Accu-Chek) 1 ea 02 XX Last administered on 08/05/18 01:28; Admin Dose 1 EA; Start 08/04/18 at 02:00 Insulin Aspart (Novolog Insulin Pen) 10 unit WITH MEALS SC Last administered on 08/11/18 19:56; Admin Dose 10 UNIT; Start 08/03/18 at 17:55 Acetylcysteine (Mucomyst) 2 ml Q8H RESP THERAPY NEB Last administered on 08/12/18 23:45; Admin Dose 2 ML; Start 08/04/18 at 08:00 Collagenase (Santyl) 1 applic DAILY TOP Last administered on 08/13/18 08:33; Admin Dose 1 APPLIC; Start 08/04/18 at 09:00 Amikacin Sulfate 500 mg/Sodium Chloride 102 ml @ 101.6 mls/ hr Q48H IVPB Last administered on 08/11/18 23:45; Admin Dose 101.6 MLS/HR; Start 08/05/18 at 20:00 Diphenhydramine HCl (Benadryl) 25 mg Q6H PRN IV rash or itching Last administered on 08/10/18 22:22; Admin Dose 25 MG; Start 08/05/18 at 11:00 Metoprolol Tartrate (Lopressor) 25 mg BID PO Last administered on 08/13/18 08:28; Admin Dose 25 MG; Start 08/06/18 at 13:30 Insulin Glargine (Lantus) 18 units DAILY@2000 SC Last administered on 08/12/18 21:02; Admin Dose 18 UNITS; Start 08/07/18 at 20:00 Nystatin (Nystatin Powder) 1 applic BID TOP Last administered on 08/13/18 08:3 3; Admin Dose 1 APPLIC; Start 08/08/18 at 12:30 Enoxaparin Sodium (Lovenox) 30 mg Q24H SC Last administered on 08/09/18 11:42; Admin Dose 30 MG; Start 08/08/18 at 12:30; Status Hold Enoxaparin Sodium (Lovenox) 80 mg Q24H SC Last administered on 08/09/18 11:41; Admin Dose 80 MG; Start 08/08/18 at 12:30; Status Hold Furosemide (Lasix) 40 mg BID IV Last administered on 08/13/18at 08:29; Admin D ose 40 MG; Start 08/09/18 at 09:00 Digoxin (Digoxin) 0.125 mg DAILY@13 PO Last administered on 08/12/18 13:16; Admin Dose 0.125 MG; Start 08/10/18 at 13:00 Morphine Sulfate (morphine) 4 mg Q2H PRN IV .PAIN 7-10 Last administered on 08/13/18at 09:48; Admin Dose 4 MG; Start 08/12/18 at 10:30 WARREN HOLLIS Aug 13, 2018 10:22
--- NOTE | 2018-08-13 11:36 | PN ---
Date/Time of Note Date/Time of Note DATE: 08/13/18 TIME: 11:34 Assessment/Plan VTE Prophylaxis Risk score (from Nsg)>0 risk: 5 SCD applied (from Nsg): Yes Pharmacological prophylaxis: NA/contraindicated Pharm contraindication: bleeding Lines/[facility] Cath still in place: No Assessment/Plan Assessment/Plan 68-year-old man with a past medical history of chronic respiratory failure status post trach, who was transferred from [facility] to [facility] for evaluation of loculated empyema ad possible VATS. The patient was a previous resident of [facility], was noted to have a loculated fluid effusion. The patient, after attempted bronchoscopy and post chest-tube without improvement of loculated fluid was subsequently transferred to [facility] for surgical evaluation. #1 acute on chronic hypoxemic and hypercarbic respiratory failure-Patient is on chronic ventilatory support via trach. Again after getting pigtail catheter few days ago, patient is status post right thoracotomy, partial decortication of the lower lobe, and Eloesser flap creation postop day #2. -Continue vent management as per pulmonary and cardiothoracic surgery team, antibiotics as ordered by ID team #2 Right pulmonary opacification plus infiltrates-Suspicion likely for large loculated thick pleural effusion, loculated empyema s/p failed bronchoscopy and chest tube prior to admission, but again did receive pigtail catheter x2 5 days ago with purulent/pus drainage. Again despite that, patient is now status post right thoracotomy, partial decortication of the lower lobe, and Eloesser flap creation postop day #2. -Continue broad-spectrum antibiotics of Zyvox, fluconazole, as well as amikacin. ID consulted -Follow-up postoperative recommendations from pulmonary and cardiothoracic surgery teams. #3 Paroxysmal atrial fibrillation-Currently in sinus rhythm, has been having some PVCs the last few days. - Continue to monitor. - Xarelto on hold at the current time, was switched to Lovenox earlier this admission, holding now given the bleeding seen from the chest tube site yesterday as well as because of the surgical procedure that occurred earlier th is morning. Consider restarting in the next 24 hours likely when okay with cardiothoracic surgery team #4 anemia of chronic disease: Patient received PRBC transfusion earlier this admission and again last night, hemoglobin today 8.3. -Monitor, transfuse for Hgb<7 or for symptomatic anemia #5 Chronic kidney disease stage III r/o FROILAN: Creatinine appears to be at baseline in the low 2 range -nephro consulted, f/u trend and recommendations #6 diabetes mellitus: A1c was 8.6, sugars are stable -Monitor sugars, follow-up endocrinology recommendations #7 diastolic CHF - chronic with bilateral lower extremity edema-may also be related to anasarca from #8 -Monitor for now #8 Hepatic cirrhosis-Chest CT shows possible liver cirrhosis confirmed on USS. -Monitor, f/u hepatitis serologies. #9 DVT GI prophylaxis: SCDs, Protonix Result Diagram: 08/13/18 1036 08/12/18 0340 Results 24hrs Laboratory Tests Test 08/12/18 11:42 08/12/18 17:54 08/12/18 20:59 08/13/18 08:20 Bedside Glucose 129 178 121 91 Test 08/13/18 10:36 White Blood Count 17.2 #H Red Blood Count 2.66 L Hemoglobin 7.1 L Hematocrit 22.6 L Mean Corpuscular 85.0 Volume Mean Corpuscular 26.7 L Hemoglobin Mean Corpuscular 31.4 L Hemoglobin Concent Red Cell 18.8 H Distribution Width Platelet Count 155 # Mean Platelet Volume 8.9 Immature 1.000 H Granulocytes % Neutrophils % 80.6 H Lymphocytes % 8.1 L Monocytes % 8.9 Eosinophils % 1.1 Basophils % 0.3 Nucleated Red Blood 0.0 Cells % Immature 0.170 H Granulocytes # Neutrophils # 13.9 H Lymphocytes # 1.4 Monocytes # 1.5 H Eosinophils # 0.2 Basophils # 0.1 Nucleated Red Blood 0.0 Cells # Subjective 24 Hr Interval Summary Free Text/Dictation No acute overnight events. Patient reports feeling better. Moved out of ICU to tele. Exam/Review of Systems Exam Vitals Vital Signs Date Temp Pulse Resp B/P (MAP) Pulse Ox O2 O2 Flow FiO2 Time Delivery Rate 08/13/18 98.3 68 20 114/57 98 11:24 (76) 08/13/18 30 09:20 08/12/18 Mechanical 13:00 Ventilator Intake and Output 08/12/18 08/12/18 08/13/18 1515:00 23:00 07:00 IntakeIntake Total 680 ml 400 ml 500 ml OutputOutput Total 250 ml 300 ml 1200 ml BalanceBalance 430 ml 100 ml -700 ml Exam General: Obese man lying in bed, trached HEENT: Atraumatic, normocephalic. Neck: trach to vent Lungs: Mechanical, some coarse breath sounds throughout Heart: Normal S1-S2, Regular rhythm and rate. 2/6 systolic ejection murmur. Abdomen: Soft , obese, nontender, nondistended , bowel sounds are present. Extremities: 1+ bilateral lower extremity edema Neurologic: awake, alert. Able to talk with deflated cuff. Results Results 24hrs Laboratory Tests Test 08/12/18 11:42 08/12/18 17:54 08/12/18 20:59 08/13/18 08:20 Bedside Glucose 129 178 121 91 Test 08/13/18 10:36 White Blood Count 17.2 #H Red Blood Count 2.66 L Hemoglobin 7.1 L Hematocrit 22.6 L Mean Corpuscular 85.0 Volume Mean Corpuscular 26.7 L Hemoglobin Mean Corpuscular 31.4 L Hemoglobin Concent Red Cell 18.8 H Distribution Width Platelet Count 155 # Mean Platelet Volume 8.9 Immature 1.000 H Granulocytes % Neutrophils % 80.6 H Lymphocytes % 8.1 L Monocytes % 8.9 Eosinophils % 1.1 Basophils % 0.3 Nucleated Red Blood 0.0 Cells % Immature 0.170 H Granulocytes # Neutrophils # 13.9 H Lymphocytes # 1.4 Monocytes # 1.5 H Eosinophils # 0.2 Basophils # 0.1 Nucleated Red Blood 0.0 Cells # Medications Medication Current Medications IV Flush (NS 3 ml) 3 ml PER PROTOCOL IV ; Start 08/03/18 at 00:00 Ondansetron HCl (Zofran Inj) 4 mg Q6H PRN IV NAUSEA/VOMITING Last administered on 08/03/18at 03:48; Admin Dose 4 MG; Start 08/03/18 at 00:00 Nitroglycerin (Nitroglycerin (Sl Tab) 0.4 Mg) 1 tab Q5M PRN SL .CHEST PAIN; Start 08/03/18 at 00:00 Acetaminophen (Tylenol Tab) 650 mg Q6H PRN PO .PAIN 1-3 OR TEMP Last administered on 08/13/18at 01:44; Admin Dose 650 MG; Start 08/03/18 at 00:00 Docusate Sodium (Colace) 100 mg Q12H PRN PO .CONSTIPATION; Start 08/03/18 at 00:00 Bisacodyl (Dulcolax) 5 mg DAILY PRN PO .CONSTIPATION; Start 08/03/18 at 00:00 Ascorbic Acid (Vitamin C) 500 mg DAILY PO Last administered on 08/13/18 08:28; Admin Dose 500 MG; Start 08/03/18 at 09:00 Chlorhexidine Gluconate (Peridex) 15 ml Q12H MM Last administered on 08/13/18 00:41; Admin Dose 15 ML; Start 08/03/18 at 00:00 Ferrous Sulfate (Ferrous Sulfate (Ec)) 325 mg DAILY PO Last administered on 08/13/18 08:27; Admin Dose 325 MG; Start 08/03/18 at 09:00 Pantoprazole (Protonix Tab) 40 mg AC BREAKFAST PO Last administered on 08/13/18 08:28; Admin Dose 40 MG; Start 08/03/18 at 07:25 Sucralfate (Carafate) 1 gm AC MEALS AND BEDTIME PO Last administered on 08/13/18 08:28; Admin Dose 1 GM; Start 08/03/18 at 07:25 Albuterol (Proventil 0.083% (Neb)) 2.5 mg Q4H RESP THERAPY PRN NEB TRACHEOSTOMY Last administered on 08/12/18 23:45; Admin Dose 2.5 MG; Start 08/02/18 at 23:45 Multivitamins/ Minerals (Theragran-M) 1 tab DAILY PO Last administered on 08/13/18 08:27; Admin Dose 1 TAB; Start 08/03/18 at 09:00 Miscellaneous Information 1 ea NOTE XX ; Start 08/02/18 at 23:45 Glucose (Glutose) 15 gm Q15M PRN PO DECREASED GLUCOSE; Start 08/02/18 at 23:45 Glucose (Glutose) 22.5 gm Q15M PRN PO DECREASED GLUCOSE; Start 08/02/18 at 23:45 Dextrose (D50w Syringe) 25 ml Q15M PRN IV DECREASED GLUCOSE; Start 08/02/18 at 23:45 Dextrose (D50w Syringe) 50 ml Q15M PRN IV DECREASED GLUCOSE; Start 08/02/18 at 23:45 Glucagon (Glucagen) 1 mg Q15M PRN IM DECREASED GLUCOSE; Start 08/02/18 at 23:45 Glucose (Glutose) 15 gm Q15M PRN BUCCAL DECREASED GLUCOSE; Start 08/02/18 at 23:45 Simethicone (Mylicon) 80 mg Q8H PRN PO DISTENSION/GAS/BLOATING Last administered on 08/04/18 01:55; Admin Dose 80 MG; Start 08/03/18 at 04:30 Amlodipine Besylate (Norvasc) 5 mg DAILY PO Last administered on 08/13/18 08:29; Admin Dose 5 MG; Start 08/03/18 at 09:00 Fluconazole (Diflucan) 100 mg DAILY PO Last administered on 08/13/18 08:28; Admin Dose 100 MG; Start 08/03/18 at 09:00 Linezolid (Zyvox) 600 mg BID PO Last administered on 08/13/18 08:27; Admin Dose 600 MG; Start 08/03/18 at 09:00 Amikacin Sulfate (Amikacin Iv Per Pharmacy) AMIKACIN PER PHARMACY NOTE XX ; Start 08/03/18 at 11:30 Insulin Aspart (Novolog Insulin Pen) NOVOLOG *MILD* ALGORI... AC MEALS AND BEDTIME SC Last administered on 08/12/18 18:08; Admin Dose 1 UNIT; Start 08/03/18 at 17:25 Linagliptin (Tradjenta) 5 mg DAILY PO Last administered on 08/13/18 08:27; Admin Dose 5 MG; Start 08/04/18 at 09:00 Diagnostic Test (Pha) (Accu-Chek) 1 ea 02 XX Last administered on 08/05/18 01:28; Admin Dose 1 EA; Start 08/04/18 at 02:00 Insulin Aspart (Novolog Insulin Pen) 10 unit WITH MEALS SC Last administered on 08/11/18 19:56; Admin Dose 10 UNIT; Start 08/03/18 at 17:55 Acetylcysteine (Mucomyst) 2 ml Q8H RESP THERAPY NEB Last administered on 08/12/18 23:45; Admin Dose 2 ML; Start 08/04/18 at 08:00 Collagenase (Santyl) 1 applic DAILY TOP Last administered on 4/29/19at 08:33; Admin Dose 1 APPLIC; Start 08/04/18 at 09:00 Amikacin Sulfate 500 mg/Sodium Chloride 102 ml @ 101.6 mls/ hr Q48H IVPB Last administered on 08/11/18 23:45; Admin Dose 101.6 MLS/HR; Start 08/05/18 at 20:00 Diphenhydramine HCl (Benadryl) 25 mg Q6H PRN IV rash or itching Last administered on 08/10/18 22:22; Admin Dose 25 MG; Start 08/05/18 at 11:00 Metoprolol Tartrate (Lopressor) 25 mg BID PO Last administered on 08/13/18 08:28; Admin Dose 25 MG; Start 08/06/18 at 13:30 Insulin Glargine (Lantus) 18 units DAILY@2000 SC Last administered on 08/12/18 21:02; Admin Dose 18 UNITS; Start 08/07/18 at 20:00 Nystatin (Nystatin Powder) 1 applic BID TOP Last administered on 08/13/18 08:33; Admin Dose 1 APPLIC; Start 08/08/18 at 12:30 Enoxaparin Sodium (Lovenox) 30 mg Q24H SC Last administered on 08/09/18 11:42; Admin Dose 30 MG; Start 08/08/18 at 12:30; Status Hold Enoxaparin Sodium (Lovenox) 80 mg Q24H SC Last administered on 08/09/18 11:41; Admin Dose 80 MG; Start 08/08/18 at 12:30; Status Hold Furosemide (Lasix) 40 mg BID IV Last administered on 08/13/18 08:29; Admin Dose 40 MG; Start 08/09/18 at 09:00 Digoxin (Digoxin) 0.125 mg DAILY@13 PO Last administered on 08/12/18 13:16; Admin Dose 0.125 MG; Start 08/10/18 at 13:00 Morphine Sulfate (morphine) 4 mg Q2H PRN IV .PAIN 7-10 Last administered on 08/13/18 09:48; Admin Dose 4 MG; Start 08/12/18 at 10:30 LALITO CENTENO MD Aug 13, 2018 11:36
[2018-08-13] MEDS: DIGOXIN 0.125 MG TAB PO SCH (12:39)
--- NOTE | 2018-08-13 14:13 | CONS ---
Assessment/Plan Assessment/Plan Hospital Course (Demo Recall) Alert, feels good, no fevers Microbiology: Sputum culture growing Serratia and pseudomonas aeruginosa, multidrug-resistant, urine culture grew Annmarie albicans Antimicrobials: Amikacin, Zyvox, fluconazole Indwelling: Trach Physical examination: Well-developed obese fragile elderly man who is awake in no distress. Head atraumatic normocephalic Neck is supple, tracheostomy present. Chest rise symmetrical breath sounds diminished bases. Heart: S1-S2. Abdomen soft bowel sounds present, extremities without cyanosis, + edema Assessment: 1. Systemic inflammatory response syndrome 2. R Empyema, s/p VATS 08/11/18 3. Acute on chronic kidney disease 4. Dysphagia 5. Fungal UTI 6. Paroxysmal atrial fibrillation 7. Diabetes Plan: Remains stable, continue abx Consultation Date/Type/Reason Admit Date/Time Aug 02, 2018 at 22:00 Initial Consult Date Type of Consult id Requesting Provider: DEJUAN ORTIZ MD, [facility] Date/Time of Note DATE: 08/13/18 TIME: 14:11 Exam/Review of Systems Exam Vitals Vital Signs Date Temp Pulse Resp B/P (MAP) Pulse Ox O2 O2 Flow FiO2 Time Delivery Rate 08/13/18 74 12:32 08/13/18 18 99 30 11:35 08/13/18 98.3 114/57 11:24 (76) 08/12/18 Mechanical 13:00 Ventilator Intake and Output 08/12/18 08/12/18 08/13/18 1515:00 23:00 07:00 IntakeIntake Total 680 ml 400 ml 500 ml OutputOutput Total 250 ml 300 ml 1200 ml BalanceBalance 430 ml 100 ml -700 ml Results Result Diagram: 08/13/18 1036 08/13/18 1036 Results 24hrs Laboratory Tests Test 08/12/18 17:54 08/12/18 20:59 08/13/18 08:20 08/13/18 10:36 Bedside Glucose 178 121 91 White Blood Count 17.2 #H Red Blood Count 2.66 L Hemoglobin 7.1 L Hematocrit 22.6 L Mean Corpuscular 85.0 Volume Mean Corpuscular 26.7 L Hemoglobin Mean Corpuscular 31.4 L Hemoglobin Concent Red Cell 18.8 H Distribution Width Platelet Count 155 # Mean Platelet Volume 8.9 Immature 1.000 H Granulocytes % Neutrophils % 80.6 H Lymphocytes % 8.1 L Monocytes % 8.9 Eosinophils % 1.1 Basophils % 0.3 Nucleated Red Blood 0.0 Cells % Immature 0.170 H Granulocytes # Neutrophils # 13.9 H Lymphocytes # 1.4 Monocytes # 1.5 H Eosinophils # 0.2 Basophils # 0.1 Nucleated Red Blood 0.0 Cells # Sodium Level 133 L Potassium Level 4.4 Chloride Level 102 Carbon Dioxide Level 26 Anion Gap 5 Blood Urea Nitrogen 31 H Creatinine 1.99 H Est Glomerular 33 L Filtrat Rate mL/min Glucose Level 77 Lactic Acid Level 0.7 Calcium Level 8.0 L Phosphorus Level 5.9 H Magnesium Level 1.8 Test 08/13/18 12:31 Bedside Glucose 93 Medications Medication Current Medications IV Flush (NS 3 ml) 3 ml PER PROTOCOL IV ; Start 08/03/18 at 00:00 Ondansetron HCl (Zofran Inj) 4 mg Q6H PRN IV NAUSEA/VOMITING Last administered on 08/03/18 03:48; Admin Dose 4 MG; Start 08/03/18 at 00:00 Nitroglycerin (Nitroglycerin (Sl Tab) 0.4 Mg) 1 tab Q5M PRN SL .CHEST PAIN; Start 08/03/18 at 00:00 Acetaminophen (Tylenol Tab) 650 mg Q6H PRN PO .PAIN 1-3 OR TEMP Last administered on 08/13/18at 01:44; Admin Dose 650 MG; Start 08/03/18 at 00:00 Docusate Sodium (Colace) 100 mg Q12H PRN PO .CONSTIPATION; Start 08/03/18 at 00:00 Bisacodyl (Dulcolax) 5 mg DAILY PRN PO .CONSTIPATION; Start 08/03/18 at 00:00 Ascorbic Acid (Vitamin C) 500 mg DAILY PO Last administered on 08/13/18 08:28; Admin Dose 500 MG; Start 08/03/18 at 09:00 Chlorhexidine Gluconate (Peridex) 15 ml Q12H MM Last administered on 08/13/18 13:22; Admin Dose 15 ML; Start 08/03/18 at 00:00 Ferrous Sulfate (Ferrous Sulfate (Ec)) 325 mg DAILY PO Last administered on 08/13/18 08:27; Admin Dose 325 MG; Start 08/03/18 at 09:00 Pantoprazole (Protonix Tab) 40 mg AC BREAKFAST PO Last administered on 08/13/18 08:28; Admin Dose 40 MG; Start 08/03/18 at 07:25 Sucralfate (Carafate) 1 gm AC MEALS AND BEDTIME PO Last administered on 08/13/18 12:33; Admin Dose 1 GM; Start 08/03/18 at 07:25 Albuterol (Proventil 0.083% (Neb)) 2.5 mg Q4H RESP THERAPY PRN NEB TRACHEOSTOMY Last administered on 08/12/18 23:45; Admin Dose 2.5 MG; Start 08/02/18 at 23:45 Multivitamins/ Minerals (Theragran-M) 1 tab DAILY PO Last administered on 08/13/18 08:27; Admin Dose 1 TAB; Start 08/03/18 at 09:00 Miscellaneous Information 1 ea NOTE XX ; Start 08/02/18 at 23:45 Glucose (Glutose) 15 gm Q15M PRN PO DECREASED GLUCOSE; Start 08/02/18 at 23:45 Glucose (Glutose) 22.5 gm Q15M PRN PO DECREASED GLUCOSE; Start 08/02/18 at 23:45 Dextrose (D50w Syringe) 25 ml Q15M PRN IV DECREASED GLUCOSE; Start 08/02/18 at 23:45 Dextrose (D50w Syringe) 50 ml Q15M PRN IV DECREASED GLUCOSE; Start 08/02/18 at 23:45 Glucagon (Glucagen) 1 mg Q15M PRN IM DECREASED GLUCOSE; Start 08/02/18 at 23:45 Glucose (Glutose) 15 gm Q15M PRN BUCCAL DECREASED GLUCOSE; Start 08/02/18 at 23:45 Simethicone (Mylicon) 80 mg Q8H PRN PO DISTENSION/GAS/BLOATING Last administered on 08/04/18 01:55; Admin Dose 80 MG; Start 08/03/18 at 04:30 Amlodipine Besylate (Norvasc) 5 mg DAILY PO Last administered on 08/13/18 08:2 9; Admin Dose 5 MG; Start 08/03/18 at 09:00 Fluconazole (Diflucan) 100 mg DAILY PO Last administered on 08/13/18 08:28; Admin Dose 100 MG; Start 08/03/18 at 09:00 Linezolid (Zyvox) 600 mg BID PO Last administered on 08/13/18 08:27; Admin Dose 600 MG; Start 08/03/18 at 09:00 Amikacin Sulfate (Amikacin Iv Per Pharmacy) AMIKACIN PER PHARMACY NOTE XX ; Start 08/03/18 at 11:30 Insulin Aspart (Novolog Insulin Pen) NOVOLOG *MILD* ALGORI... AC MEALS AND BEDTIME SC Last administered on 08/12/18 18:08; Admin Dose 1 UNIT; Start 08/03/18 at 17:25 Linagliptin (Tradjenta) 5 mg DAILY PO Last administered on 08/13/18 08:27; Admin Dose 5 MG; Start 08/04/18 at 09:00 Diagnostic Test (Pha) (Accu-Chek) 1 ea 02 XX Last administered on 08/05/18 01:28; Admin Dose 1 EA; Start 08/04/18 at 02:00 Insulin Aspart (Novolog Insulin Pen) 10 unit WITH MEALS SC Last administered on 08/13/18 13:25; Admin Dose 10 UNIT; Start 08/03/18 at 17:55 Acetylcysteine (Mucomyst) 2 ml Q8H RESP THERAPY NEB Last administered on 08/12/18 23:45; Admin Dose 2 ML; Start 08/04/18 at 08:00 Collagenase (Santyl) 1 applic DAILY TOP Last administered on 08/13/18 08:33; Admin Dose 1 APPLIC; Start 08/04/18 at 09:00 Amikacin Sulfate 500 mg/Sodium Chloride 102 ml @ 101.6 mls/ hr Q48H IVPB Last administered on 08/11/18 23:45; Admin Dose 101.6 MLS/HR; Start 08/05/18 at 20:00 Diphenhydramine HCl (Benadryl) 25 mg Q6H PRN IV rash or itching Last administered on 08/10/18 22:22; Admin Dose 25 MG; Start 08/05/18 at 11:00 Metoprolol Tartrate (Lopressor) 25 mg BID PO Last administered on 08/13/18 08:28; Admin Dose 25 MG; Start 08/06/18 at 13:30 Insulin Glargine (Lantus) 18 units DAILY@2000 SC Last administered on 08/12/18 21:02; Admin Dose 18 UNITS; Start 08/07/18 at 20:00 Nystatin (Nystatin Powder) 1 applic BID TOP Last administered on 08/13/18 08:33; Admin Dose 1 APPLIC; Start 08/08/18 at 12:30 Enoxaparin Sodium (Lovenox) 30 mg Q24H SC Last administered on 08/09/18 11:42; Admin Dose 30 MG; Start 08/08/18 at 12:30; Status Hold Enoxaparin Sodium (Lovenox) 80 mg Q24H SC Last administered on 08/09/18 11:41; Admin Dose 80 MG; Start 08/08/18 at 12:30; Status Hold Furosemide (Lasix) 40 mg BID IV Last administered on 08/13/18 08:29; Admin Dose 40 MG; Start 08/09/18 at 09:00 Digoxin (Digoxin) 0.125 mg DAILY@13 PO Last administered on 08/13/18 12:39; Admin Dose 0.125 MG; Start 08/10/18 at 13:00 Morphine Sulfate (morphine) 4 mg Q2H PRN IV .PAIN 7-10 Last administered on 08/13/18 09:48; Admin Dose 4 MG; Start 08/12/18 at 10:30 JUANIS FINN NP Aug 13, 2018 14:13
--- NOTE | 2018-08-13 16:14 | CONS ---
Assessment/Plan Assessment/Plan Hospital Course (Demo Recall) Respiratory failure Pleural effusion s/p thoracotomy Paroxysmal atrial fibrillation Hypertension Recurrent anemia, currently off anticoagulation Preserved ejection fraction Moderate pulmonary hypertension -Patient s/p thoracotomy -cont bb as tolerated as diya -diuretics as renal fxn permits Consultation Date/Type/Reason Admit Date/Time Aug 02, 2018 at 22:00 Initial Consult Date 08/03/18 Type of Consult Cardiology Requesting Provider: DEJUAN ORTIZ MD, [facility] Date/Time of Note DATE: 08/13/18 TIME: 16:11 24 HR Interval Summary Free Text/Dictation no sob, palp Exam/Review of Systems Vital Signs Vitals Vital Signs Date Temp Pulse Resp B/P (MAP) Pulse Ox O2 O2 Flow FiO2 Time Delivery Rate 08/13/18 98.3 77 20 116/58 97 16:03 (77) 08/13/18 30 15:35 08/12/18 Mechanical 13:00 Ventilator Intake and Output 08/12/18 08/12/18 08/13/18 1515:00 23:00 07:00 IntakeIntake Total 680 ml 400 ml 500 ml OutputOutput Total 250 ml 300 ml 1200 ml BalanceBalance 430 ml 100 ml -700 ml Exam Constitutional: alert, oriented (nad) Head: normocephalic Respiratory: other (course bs, no wheeze) Cardiovascular: regular rate and rhythm (s1s2) Gastrointestinal: soft, non-tender, bowel sounds Extremities: edema Labs Result Diagram: 08/13/18 1036 08/13/18 1036 Results 24hrs Laboratory Tests Test 08/12/18 17:54 08/12/18 20:59 08/13/18 08:20 08/13/18 10:36 Bedside Glucose 178 121 91 White Blood Count 17.2 #H Red Blood Count 2.66 L Hemoglobin 7.1 L Hematocrit 22.6 L Mean Corpuscular 85.0 Volume Mean Corpuscular 26.7 L Hemoglobin Mean Corpuscular 31.4 L Hemoglobin Concent Red Cell 18.8 H Distribution Width Platelet Count 155 # Mean Platelet Volume 8.9 Immature 1.000 H Granulocytes % Neutrophils % 80.6 H Lymphocytes % 8.1 L Monocytes % 8.9 Eosinophils % 1.1 Basophils % 0.3 Nucleated Red Blood 0.0 Cells % Immature 0.170 H Granulocytes # Neutrophils # 13.9 H Lymphocytes # 1.4 Monocytes # 1.5 H Eosinophils # 0.2 Basophils # 0.1 Nucleated Red Blood 0.0 Cells # Sodium Level 133 L Potassium Level 4.4 Chloride Level 102 Carbon Dioxide Level 26 Anion Gap 5 Blood Urea Nitrogen 31 H Creatinine 1.99 H Est Glomerular 33 L Filtrat Rate mL/min Glucose Level 77 Lactic Acid Level 0.7 Calcium Level 8.0 L Phosphorus Level 5.9 H Magnesium Level 1.8 Test 08/13/18 12:31 Bedside Glucose 93 Medications Medications Current Medications IV Flush (NS 3 ml) 3 ml PER PROTOCOL IV ; Start 08/03/18 at 00:00 Ondansetron HCl (Zofran Inj) 4 mg Q6H PRN IV NAUSEA/VOMITING Last administered on 08/03/18at 03:48; Admin Dose 4 MG; Start 08/03/18 at 00:00 Nitroglycerin (Nitroglycerin (Sl Tab) 0.4 Mg) 1 tab Q5M PRN SL .CHEST PAIN; S tart 08/03/18 at 00:00 Acetaminophen (Tylenol Tab) 650 mg Q6H PRN PO .PAIN 1-3 OR TEMP Last administ ered on 08/13/18at 01:44; Admin Dose 650 MG; Start 08/03/18 at 00:00 Docusate Sodium (Colace) 100 mg Q12H PRN PO .CONSTIPATION; Start 08/03/18 at 00:00 Bisacodyl (Dulcolax) 5 mg DAILY PRN PO .CONSTIPATION; Start 08/03/18 at 00:00 Ascorbic Acid (Vitamin C) 500 mg DAILY PO Last administered on 08/13/18 08:28; Admin Dose 500 MG; Start 08/03/18 at 09:00 Chlorhexidine Gluconate (Peridex) 15 ml Q12H MM Last administered on 08/13/18 13:22; Admin Dose 15 ML; Start 08/03/18 at 00:00 Ferrous Sulfate (Ferrous Sulfate (Ec)) 325 mg DAILY PO Last administered on 08/13/18 08:27; Admin Dose 325 MG; Start 08/03/18 at 09:00 Pantoprazole (Protonix Tab) 40 mg AC BREAKFAST PO Last administered on 9at 08:28; Admin Dose 40 MG; Start 08/03/18 at 07:25 Sucralfate (Carafate) 1 gm AC MEALS AND BEDTIME PO Last administered on 08/13/18 12:33; Admin Dose 1 GM; Start 08/03/18 at 07:25 Albuterol (Proventil 0.083% (Neb)) 2.5 mg Q4H RESP THERAPY PRN NEB TRACHEOSTOMY Last administered on 08/12/18 23:45; Admin Dose 2.5 MG; Start 08/02/18 at 23:45 Multivitamins/ Minerals (Theragran-M) 1 tab DAILY PO Last administered on 08/13/18 08:27; Admin Dose 1 TAB; Start 08/03/18 at 09:00 Miscellaneous Information 1 ea NOTE XX ; Start 08/02/18 at 23:45 Glucose (Glutose) 15 gm Q15M PRN PO DECREASED GLUCOSE; Start 08/02/18 at 23:45 Glucose (Glutose) 22.5 gm Q15M PRN PO DECREASED GLUCOSE; Start 08/02/18 at 23:45 Dextrose (D50w Syringe) 25 ml Q15M PRN IV DECREASED GLUCOSE; Start 08/02/18 at 23:45 Dextrose (D50w Syringe) 50 ml Q15M PRN IV DECREASED GLUCOSE; Start 08/02/18 at 23:45 Glucagon (Glucagen) 1 mg Q15M PRN IM DECREASED GLUCOSE; Start 08/02/18 at 23:45 Glucose (Glutose) 15 gm Q15M PRN BUCCAL DECREASED GLUCOSE; Start 08/02/18 at 23:45 Simethicone (Mylicon) 80 mg Q8H PRN PO DISTENSION/GAS/BLOATING Last administered on 08/04/18at 01:55; Admin Dose 80 MG; Start 08/03/18 at 04:30 Amlodipine Besylate (Norvasc) 5 mg DAILY PO Last administered on 08/13/18 08:29; Admin Dose 5 MG; Start 08/03/18 at 09:00 Fluconazole (Diflucan) 100 mg DAILY PO Last administered on 08/13/18 08:28; Admin Dose 100 MG; Start 08/03/18 at 09:00 Linezolid (Zyvox) 600 mg BID PO Last administered on 08/13/18 08:27; Admin Dose 600 MG; Start 08/03/18 at 09:00 Amikacin Sulfate (Amikacin Iv Per Pharmacy) AMIKACIN PER PHARMACY NOTE XX ; Start 08/03/18 at 11:30 Insulin Aspart (Novolog Insulin Pen) NOVOLOG *MILD* ALGORI... AC MEALS AND BEDTIME SC Last administered on 08/12/18 18:08; Admin Dose 1 UNIT; Start 08/03/18 at 17:25 Linagliptin (Tradjenta) 5 mg DAILY PO Last administered on 08/13/18 08:27; Admin Dose 5 MG; Start 08/04/18 at 09:00 Diagnostic Test (Pha) (Accu-Chek) 1 ea 02 XX Last administered on 08/05/18 01:28; Admin Dose 1 EA; Start 08/04/18 at 02:00 Insulin Aspart (Novolog Insulin Pen) 10 unit WITH MEALS SC Last administered on 08/13/18 13:25; Admin Dose 10 UNIT; Start 08/03/18 at 17:55 Acetylcysteine (Mucomyst) 2 ml Q8H RESP THERAPY NEB Last administered on 08/12/18 23:45; Admin Dose 2 ML; Start 08/04/18 at 08:00 Collagenase (Santyl) 1 applic DAILY TOP Last administered on 08/13/18 08:33; Admin Dose 1 APPLIC; Start 08/04/18 at 09:00 Amikacin Sulfate 500 mg/Sodium Chloride 102 ml @ 101.6 mls/ hr Q48H IVPB Last administered on 08/11/18 23:45; Admin Dose 101.6 MLS/HR; Start 08/05/18 at 20:00 Diphenhydramine HCl (Benadryl) 25 mg Q6H PRN IV rash or itching Last administ ered on 08/10/18 22:22; Admin Dose 25 MG; Start 08/05/18 at 11:00 Metoprolol Tartrate (Lopressor) 25 mg BID PO Last administered on 08/13/18 08:28; Admin Dose 25 MG; Start 08/06/18 at 13:30 Insulin Glargine (Lantus) 18 units DAILY@2000 SC Last administered on 08/12/18 21:02; Admin Dose 18 UNITS; Start 08/07/18 at 20:00 Nystatin (Nystatin Powder) 1 applic BID TOP Last administered on 08/13/18 08:33; Admin Dose 1 APPLIC; Start 08/08/18 at 12:30 Enoxaparin Sodium (Lovenox) 30 mg Q24H SC Last administered on 08/09/18 11:42; Admin Dose 30 MG; Start 08/08/18 at 12:30; Status Hold Enoxaparin Sodium (Lovenox) 80 mg Q24H SC Last administered on 08/09/18 11:41; Admin Dose 80 MG; Start 08/08/18 at 12:30; Status Hold Furosemide (Lasix) 40 mg BID IV Last administered on 08/13/18 08:29; Admin Dose 40 MG; Start 08/09/18 at 09:00 Digoxin (Digoxin) 0.125 mg DAILY@13 PO Last administered on 08/13/18 12:39; Admin Dose 0.125 MG; Start 08/10/18 at 13:00 Morphine Sulfate (morphine) 4 mg Q2H PRN IV .PAIN 7-10 Last administered on 08/13/18 09:48; Admin Dose 4 MG; Start 08/12/18 at 10:30 Nasir Da Silva DO Aug 13, 2018 16:14
[2018-08-13] MEDS: AMIKACIN 500 MG in SOD CHLORIDE 0.9% 100 ML IVPB SCH (21:32)
[2018-08-13] MEDS: INSULIN GLARGINE [LANTus] (100 UNITS/ML) SYG SC SCH (21:35)
--- NOTE | 2018-08-13 22:11 | CONS ---
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 Cont. current insulin doses. Qualifiers: Diabetes mellitus fci insulin use: with exterminator use Chronic kidney disease stage: stage 3 (moderate) Qualified Codes: E11.22 - Type 2 diabetes mellitus with diabetic chronic kidney disease; N18.3 - Chronic kidney disease, stage 3 (moderate); Z79.4 - FCI (current) use of insulin Consultation Date/Type/Reason Admit Date/Time Aug 02, 2018 at 22:00 Initial Consult Date 08/03/18 Type of Consult Endocrinology Reason for Consultation T2DM management Requesting Provider: DEJUAN ORTIZ MD, [facility] Date/Time of Note DATE: 08/13/18 TIME: 22:09 24 HR Interval Summary Constitutional: no complaints Detailed Summary Respiratory: no complaints Cardiovascular: no complaints Gastrointestinal: no complaints Genitourinary: no complaints Musculoskeletal: no complaints Neurologic: no complaints Exam/Review of Systems Exam Vitals VS - Last 72 Hours, by Label Date Temp Pulse Resp B/P (MAP) Pulse Ox O2 O2 Flow FiO2 Time Delivery Rate 08/13/18 98.7 69 18 113/56 95 20:23 (75) 08/13/18 72 20:00 08/13/18 65 18 100 30 19:38 08/13/18 76 22 100 30 17:20 08/13/18 78 16:27 08/13/18 98.3 77 20 116/58 97 16:03 (77) 08/13/18 68 19 100 30 15:35 08/13/18 78 21 99 30 13:20 08/13/18 74 12:32 08/13/18 80 18 99 30 11:35 08/13/18 98.3 68 20 114/57 98 11:24 (76) 08/13/18 80 18 99 30 09:20 08/13/18 83 08:58 08/13/18 79 20 98 30 07:50 08/13/18 98.0 78 20 118/57 93 07:42 (77) 08/13/18 80 23 97 40 05:38 08/13/18 99.8 84 18 126/58 95 04:00 (80) 08/13/18 77 04:00 08/13/18 81 19 97 40 03:22 08/13/18 98.5 02:30 08/13/18 98.5 02:29 08/13/18 100.0 01:44 08/13/18 100.0 01:40 08/13/18 76 19 96 40 01:40 08/13/18 83 00:00 08/13/18 99.8 83 18 129/58 97 00:00 (81) 08/12/18 86 18 98 40 23:38 08/12/18 88 18 98 40 21:10 08/12/18 87 20:00 08/12/18 40 20:00 08/12/18 99.1 89 18 134/63 93 20:00 (86) 08/12/18 81 19 97 40 19:48 08/12/18 91 18 100 30 17:43 08/12/18 97 16:00 08/12/18 92 18 100 30 15:29 08/12/18 98.7 100 18 119/55 97 15:08 (76) 08/12/18 101 14:15 08/12/18 100 19 95 40 13:20 08/12/18 99 18 113/69 97 [employer] 13:00 (84) l Ventilato r 08/12/18 40 12:00 08/12/18 97.9 115 29 126/63 91 [employer] 12:00 (84) l Ventilato r 08/12/18 103 12:00 08/12/18 101 18 129/57 96 11:45 (81) 08/12/18 102 18 94 40 11:30 08/12/18 105 18 129/57 97 11:30 (81) 08/12/18 111 18 124/58 94 11:15 (80) 08/12/18 92 18 123/54 96 [employer] 11:00 (77) l Ventilato r 08/12/18 97 16 123/54 96 10:45 (77) 08/12/18 98 18 127/56 96 10:30 (79) 08/12/18 99 18 129/56 96 10:15 (80) 08/12/18 95 18 124/55 94 [employer] 10:00 (78) l Ventilato r Trach Collar 08/12/18 98 20 94 40 09:50 08/12/18 96 20 123/49 95 09:45 (73) 08/12/18 95 18 128/52 96 09:30 (77) 08/12/18 96 18 126/50 99 09:15 (75) 08/12/18 95 18 123/49 98 [employer] 09:00 (73) l Ventilato r Trach Collar 08/12/18 98 18 117/49 96 08:45 (71) 08/12/18 98 20 128/52 97 08:30 (77) 08/12/18 92 19 122/56 96 08:15 (78) 08/12/18 40 08:00 08/12/18 97.6 97 18 119/56 100 [employer] 08:00 (77) l Ventilato r Trach Collar 08/12/18 94 18 100 40 08:00 08/12/18 92 08:00 08/12/18 95 18 124/54 96 07:45 (77) 08/12/18 96 16 121/54 96 07:30 (76) 08/12/18 97 18 120/53 95 07:15 (75) 08/12/18 85 21 122/55 96 [employer] 07:00 (77) l Ventilato r Trach Collar 08/12/18 100 19 125/56 96 [employer] 06:00 (79) l Ventilato r 08/12/18 95 19 126/57 97 [employer] 05:00 (80) l Ventilato r 08/12/18 90 18 100 30 04:59 08/12/18 93 04:00 08/12/18 40 04:00 08/12/18 98.9 93 18 119/53 98 [employer] 04:00 (75) l Ventilato r 08/12/18 92 18 125/56 100 [employer] 03:00 (79) l Ventilato r 08/12/18 93 19 98 30 03:00 08/12/18 85 21 121/55 100 [employer] 02:30 (77) l Ventilato r 08/12/18 85 18 122/56 100 [employer] 02:00 (78) l Ventilato r 08/12/18 79 18 117/53 100 [employer] 01:30 (74) l Ventilato r 08/12/18 97 18 128/58 100 [employer] 01:00 (81) l Ventilato r 08/12/18 86 18 98 30 01:00 08/12/18 83 18 123/55 100 [employer] 00:30 (77) l Ventilato r 08/12/18 40 00:00 4/28/19 95 00:00 08/12/18 97.8 86 18 127/58 100 [employer] 00:00 (81) l Ventilato r 08/11/18 84 18 127/58 100 [employer] 23:45 (81) l Ventilato r 08/11/18 95 20 137/61 100 [employer] 23:30 (86) l Ventilato r 08/11/18 91 18 130/58 100 [employer] 23:15 (82) l Ventilato r 08/11/18 90 18 100 30 23:05 08/11/18 96 18 117/57 100 [employer] 23:00 (77) l Ventilato r 08/11/18 96 18 129/59 100 [employer] 22:45 (82) l Ventilato r 08/11/18 97 18 129/59 100 [employer] 22:30 (82) l Ventilato r 08/11/18 99 18 130/60 100 [employer] 22:15 (83) l Ventilato r 08/11/18 93 18 126/58 100 [employer] 22:00 (80) l Ventilato r 08/11/18 92 18 100 30 21:12 08/11/18 97.7 70 18 116/58 97 [employer] 21:00 (77) l Ventilato r 08/11/18 87 18 131/65 100 [employer] 20:00 (87) l Ventilato r 08/11/18 89 20:00 08/11/18 40 20:00 08/11/18 90 18 100 30 19:00 08/11/18 97.8 94 18 116/54 100 [employer] 19:00 (74) l Ventilato r 08/11/18 95 18 119/61 100 [employer] 18:00 (80) l Ventilato r 08/11/18 94 18 113/59 100 [employer] 17:00 (77) l Ventilato r 08/11/18 94 18 100 30 16:30 08/11/18 97.7 95 16 107/57 100 [employer] 16:00 (74) l Ventilato r 08/11/18 94 16:00 08/11/18 98 18 100 30 15:03 08/11/18 98 18 108/58 100 [employer] 15:00 (75) l Ventilato r 08/11/18 30 15:00 08/11/18 99 12 95/55 (68) 100 [employer] 14:00 l Ventilato r 08/11/18 98 18 112/52 100 13:30 (72) 08/11/18 95 18 109/51 100 [employer] 13:00 (70) l Ventilato r 08/11/18 101 18 100 40 12:37 08/11/18 105 18 107/52 100 12:30 (70) 08/11/18 40 12:30 08/11/18 97.6 109 18 118/56 100 [employer] 12:00 (76) l Ventilato r 08/11/18 110 12:00 08/11/18 109 19 149/70 100 11:45 (96) 08/11/18 101 16 133/64 100 11:30 (87) 08/11/18 111 11 142/71 100 11:15 (94) 08/11/18 110 18 100 70 11:09 08/11/18 111 21 134/69 100 [employer] 11:00 (90) l Ventilato r 08/11/18 111 22 124/70 100 10:45 (88) 08/11/18 113 14 130/70 100 10:30 (90) 08/11/18 105 18 148/79 100 10:15 (102) 08/11/18 103 18 157/69 100 [employer] 10:00 (98) l Ventilato r 08/11/18 70 10:00 08/11/18 97.7 100 21 167/74 100 [employer] 09:45 (105) l Ventilato r 08/11/18 98.0 09:33 08/11/18 118 09:30 08/11/18 117 18 100 70 09:30 08/11/18 70 14 100 100 07:15 08/11/18 75 15 99 30 05:26 08/11/18 73 04:00 08/11/18 98.1 72 19 165/64 98 04:00 (97) 08/11/18 70 16 98 30 03:19 08/11/18 71 16 97 30 01:29 08/11/18 97.9 71 20 152/59 100 00:00 (90) 08/11/18 68 00:00 08/10/18 71 16 99 30 23:20 Vital Signs Date Temp Pulse Resp B/P (MAP) Pulse Ox O2 O2 Flow FiO2 Time Delivery Rate 08/13/18 98.7 69 18 113/56 95 20:23 (75) 08/13/18 30 19:38 08/12/18 Mechanical 13:00 Ventilator Intake and Output 08/12/18 08/12/18 08/13/18 1515:00 23:00 07:00 IntakeIntake Total 680 ml 400 ml 500 ml OutputOutput Total 250 ml 300 ml 1200 ml BalanceBalance 430 ml 100 ml -700 ml Constitutional: alert, oriented, obese Neck: other ((+) trach on vent) Respiratory: clear to auscultation, normal air movement Cardiovascular: regular rate and rhythm, edema (2+ BLE); No murmurs/extra sounds, No rub Gastrointestinal: soft, nl liver, spleen, non-tender, bowel sounds; No mass, No rebound or guarding Musculoskeletal: nl extremities to inspection Extremities: edema (2+); No cyanosis, No clubbing Neurological: MANAGER DEVELOPMENT II-XII intact, nl mental status, nl speech, nl strength Additional Comments Bedside Glucose - 72 Hours Test 08/11/18 07:24 08/11/18 10:29 08/11/18 11:55 08/11/18 17:55 Bedside 108 173 184 235 Glucose mg/dL (70-220) mg/dL (70-220) mg/dL (70-220) mg/dL (70-220) H Test 08/11/18 20:59 08/12/18 01:37 08/12/18 06:49 08/12/18 08:35 Bedside 167 126 110 124 Glucose mg/dL (70-220) mg/dL (70-220) mg/dL (70-220) mg/dL (70-220) Test 08/12/18 11:42 08/12/18 17:54 08/12/18 20:59 08/13/18 08:20 Bedside 129 178 121 91 Glucose mg/dL (70-220) mg/dL (70-220) mg/dL (70-220) mg/dL (70-220) Test 08/13/18 12:31 08/13/18 17:49 08/13/18 21:25 Bedside 93 78 117 Glucose mg/dL (70-220) mg/dL (70-220) mg/dL (70-220) Results Result Diagram: 08/13/18 1036 08/13/18 1036 Results 24hrs Laboratory Tests Test 08/13/18 08:20 08/13/18 10:36 08/13/18 12:31 08/13/18 17:49 Bedside Glucose 91 93 78 White Blood Count 17.2 #H Red Blood Count 2.66 L Hemoglobin 7.1 L Hematocrit 22.6 L Mean Corpuscular 85.0 Volume Mean Corpuscular 26.7 L Hemoglobin Mean Corpuscular 31.4 L Hemoglobin Concent Red Cell 18.8 H Distribution Width Platelet Count 155 # Mean Platelet Volume 8.9 Immature 1.000 H Granulocytes % Neutrophils % 80.6 H Lymphocytes % 8.1 L Monocytes % 8.9 Eosinophils % 1.1 Basophils % 0.3 Nucleated Red Blood 0.0 Cells % Immature 0.170 H Granulocytes # Neutrophils # 13.9 H Lymphocytes # 1.4 Monocytes # 1.5 H Eosinophils # 0.2 Basophils # 0.1 Nucleated Red Blood 0.0 Cells # Sodium Level 133 L Potassium Level 4.4 Chloride Level 102 Carbon Dioxide Level 26 Anion Gap 5 Blood Urea Nitrogen 31 H Creatinine 1.99 H Est Glomerular 33 L Filtrat Rate mL/min Glucose Level 77 Lactic Acid Level 0.7 Calcium Level 8.0 L Phosphorus Level 5.9 H Magnesium Level 1.8 Test 08/13/18 21:25 Bedside Glucose 117 Medications Medication Current Medications IV Flush (NS 3 ml) 3 ml PER PROTOCOL IV ; Start 08/03/18 at 00:00 Ondansetron HCl (Zofran Inj) 4 mg Q6H PRN IV NAUSEA/VOMITING Last administered on 08/03/18at 03:48; Admin Dose 4 MG; Start 08/03/18 at 00:00 Nitroglycerin (Nitroglycerin (Sl Tab) 0.4 Mg) 1 tab Q5M PRN SL .CHEST PAIN; Start 08/03/18 at 00:00 Acetaminophen (Tylenol Tab) 650 mg Q6H PRN PO .PAIN 1-3 OR TEMP Last administered on 08/13/18at 01:44; Admin Dose 650 MG; Start 08/03/18 at 00:00 Docusate Sodium (Colace) 100 mg Q12H PRN PO .CONSTIPATION; Start 08/03/18 at 00:00 Bisacodyl (Dulcolax) 5 mg DAILY PRN PO .CONSTIPATION; Start 08/03/18 at 00:00 Ascorbic Acid (Vitamin C) 500 mg DAILY PO Last administered on 08/13/18 08:28; Admin Dose 500 MG; Start 08/03/18 at 09:00 Chlorhexidine Gluconate (Peridex) 15 ml Q12H MM Last administered on 08/13/18 13:22; Admin Dose 15 ML; Start 08/03/18 at 00:00 Ferrous Sulfate (Ferrous Sulfate (Ec)) 325 mg DAILY PO Last administered on 08/13/18 08:27; Admin Dose 325 MG; Start 08/03/18 at 09:00 Pantoprazole (Protonix Tab) 40 mg AC BREAKFAST PO Last administered on 08/13/18 08:28; Admin Dose 40 MG; Start 08/03/18 at 07:25 Sucralfate (Carafate) 1 gm AC MEALS AND BEDTIME PO Last administered on 08/13/18 17:50; Admin Dose 1 GM; Start 08/03/18 at 07:25 Albuterol (Proventil 0.083% (Neb)) 2.5 mg Q4H RESP THERAPY PRN NEB TRACHEOSTOMY Last administered on 08/12/18 23:45; Admin Dose 2.5 MG; Start 08/02/18 at 23:45 Multivitamins/ Minerals (Theragran-M) 1 tab DAILY PO Last administered on 08/13/18 08:27; Admin Dose 1 TAB; Start 08/03/18 at 09:00 Miscellaneous Information 1 ea NOTE XX ; Start 08/02/18 at 23:45 Glucose (Glutose) 15 gm Q15M PRN PO DECREASED GLUCOSE; Start 08/02/18 at 23:45 Glucose (Glutose) 22.5 gm Q15M PRN PO DECREASED GLUCOSE; Start 08/02/18 at 23:45 Dextrose (D50w Syringe) 25 ml Q15M PRN IV DECREASED GLUCOSE; Start 08/02/18 at 23:45 Dextrose (D50w Syringe) 50 ml Q15M PRN IV DECREASED GLUCOSE; Start 08/02/18 at 23:45 Glucagon (Glucagen) 1 mg Q15M PRN IM DECREASED GLUCOSE; Start 08/02/18 at 23:45 Glucose (Glutose) 15 gm Q15M PRN BUCCAL DECREASED GLUCOSE; Start 08/02/18 at 23:45 Simethicone (Mylicon) 80 mg Q8H PRN PO DISTENSION/GAS/BLOATING Last administered on 08/04/18 01:55; Admin Dose 80 MG; Start 08/03/18 at 04:30 Amlodipine Besylate (Norvasc) 5 mg DAILY PO Last administered on 08/13/18 08:29; Admin Dose 5 MG; Start 08/03/18 at 09:00 Fluconazole (Diflucan) 100 mg DAILY PO Last administered on 08/13/18 08:28; Admin Dose 100 MG; Start 08/03/18 at 09:00 Linezolid (Zyvox) 600 mg BID PO Last administered on 08/13/18 08:27; Admin Dose 600 MG; Start 08/03/18 at 09:00 Amikacin Sulfate (Amikacin Iv Per Pharmacy) AMIKACIN PER PHARMACY NOTE XX ; Start 08/03/18 at 11:30 Insulin Aspart (Novolog Insulin Pen) NOVOLOG *MILD* ALGORI... AC MEALS AND BEDTIME SC Last administered on 08/12/18 18:08; Admin Dose 1 UNIT; Start 08/03/18 at 17:25 Linagliptin (Tradjenta) 5 mg DAILY PO Last administered on 08/13/18 08:27; Admin Dose 5 MG; Start 08/04/18 at 09:00 Diagnostic Test (Pha) (Accu-Chek) 1 ea 02 XX Last administered on 08/05/18 01:28; Admin Dose 1 EA; Start 08/04/18 at 02:00 Insulin Aspart (Novolog Insulin Pen) 10 unit WITH MEALS SC Last administered on 08/13/18 13:25; Admin Dose 10 UNIT; Start 08/03/18 at 17:55 Acetylcysteine (Mucomyst) 2 ml Q8H RESP THERAPY NEB Last administered on 08/13/18 16:35; Admin Dose 2 ML; Start 08/04/18 at 08:00 Collagenase (Santyl) 1 applic DAILY TOP Last administered on 08/13/18 08:33; Admin Dose 1 APPLIC; Start 08/04/18 at 09:00 Amikacin Sulfate 500 mg/Sodium Chloride 102 ml @ 101.6 mls/ hr Q48H IVPB Last administered on 08/11/18 23:45; Admin Dose 101.6 MLS/HR; Start 08/05/18 at 20:00 Diphenhydramine HCl (Benadryl) 25 mg Q6H PRN IV rash or itching Last administered on 08/10/18 22:22; Admin Dose 25 MG; Start 08/05/18 at 11:00 Metoprolol Tartrate (Lopressor) 25 mg BID PO Last administered on 08/13/18 08:28; Admin Dose 25 MG; Start 08/06/18 at 13:30 Insulin Glargine (Lantus) 18 units DAILY@2000 SC Last administered on 08/12/18 21:02; Admin Dose 18 UNITS; Start 08/07/18 at 20:00 Nystatin (Nystatin Powder) 1 applic BID TOP Last administered on 08/13/18 08:33; Admin Dose 1 APPLIC; Start 08/08/18 at 12:30 Enoxaparin Sodium (Lovenox) 30 mg Q24H SC Last administered on 08/09/18 11:42; Admin Dose 30 MG; Start 08/08/18 at 12:30; Status Hold Enoxaparin Sodium (Lovenox) 80 mg Q24H SC Last administered on 08/09/18 11:41; Admin Dose 80 MG; Start 08/08/18 at 12:30; Status Hold Furosemide (Lasix) 40 mg BID IV Last administered on 08/13/18 08:29; Admin Dose 40 MG; Start 08/09/18 at 09:00 Digoxin (Digoxin) 0.125 mg DAILY@13 PO Last administered on 08/13/18 12:39; Admin Dose 0.125 MG; Start 08/10/18 at 13:00 Morphine Sulfate (morphine) 4 mg Q2H PRN IV .PAIN 7-10 Last administered on 08/13/18 09:48; Admin Dose 4 MG; Start 08/12/18 at 10:30 ANTONIO ABURTO MD Aug 13, 2018 22:11
[2018-08-14] VITALS (20 sets, daily range): BP systolic 112–125; BP diastolic 50–93; PULSE 58–110; RESP 18–22
[2018-08-14] MEDS: CHLORHEXIDINE GLUCONATE 15 ML UD CUP MM SCH ×2 (00:10→12:18)
[2018-08-14] MEDS: ACCU-CHEK XX SCH (02:00)
[2018-08-14] MEDS: INSULIN ASPART [NOVOLOG] 3 ML PEN SC SCH ×7 (07:25→20:12)
[2018-08-14] MEDS: ALBUTEROL 0.083% (NEB) 2.5 MG/3 ML AMP NEB PRN ×2 (07:50→16:58)
[2018-08-14] MEDS: ACETYLCYSTEINE 20% 4 ML VIAL NEB SCH ×2 (07:50→16:58)
[2018-08-14] MEDS: PANTOPRAZOLE (EC) 40 MG TAB PO SCH (08:16)
[2018-08-14] MEDS: MULTIVITAMINS/MINERALS TAB PO SCH (08:16)
[2018-08-14] MEDS: ZYVOX 600 MG TAB PO SCH ×2 (08:16→20:08)
[2018-08-14] MEDS: SUCRALFATE 1 GM TAB PO SCH ×4 (08:16→20:08)
[2018-08-14] MEDS: FLUCONAZOLE 100 MG TAB PO SCH (08:16)
[2018-08-14] MEDS: ASCORBIC ACID 500 MG TAB PO SCH (08:17)
[2018-08-14] MEDS: NYSTATIN 30 GM POWDER BTL TOP SCH ×2 (08:17→20:13)
[2018-08-14] MEDS: COLLAGENASE 5 GM (UD JAR) TOP SCH (08:17)
[2018-08-14] MEDS: FERROUS SULFATE (EC) 325 MG TAB PO SCH (08:17)
[2018-08-14] MEDS: METOPROLOL 25 MG TAB PO SCH ×2 (08:17→20:08)
[2018-08-14] MEDS: LINAGLIPTIN 5 MG TABLET PO SCH (08:17)
[2018-08-14] MEDS: AMLODIPINE 5 MG TAB PO SCH (08:17)
[2018-08-14] MEDS: FUROSEMIDE 40 MG INJ IV SCH ×2 (08:17→20:09)
[2018-08-14] MEDS ORDERED: METOLAZONE 5 MG TAB PO ONE (08:30)
--- NOTE | 2018-08-14 08:56 | PN ---
DATE: 08/14/2018 SUBJECTIVE: The patient is stable, no events overnight. OBJECTIVE: VITAL SIGNS: Blood pressure is 120/63, respiration 19, pulse 78, temperature 98.7. HEENT: Head is normocephalic. NECK: Supple. HEART: Regular rate. LUNGS: Show diminished breath sounds at the base. ABDOMEN: Soft, nontender to palpation without rebound or guarding. EXTREMITIES: Negative for clubbing, cyanosis. Positive edema. DERMATOLOGIC: No rashes. MUSCULOSKELETAL: No joint effusion. NEUROLOGIC: No change in exam. MEDICATIONS: Reviewed. LABORATORY DATA: Has been reviewed. ASSESSMENT AND PLAN: 1. Chronic kidney disease stage IV with a baseline creatinine 2.2 to 2.3 mg/dL. The patient's renal function is currently at baseline. Continue current treatment plans, supportive care, renally dose all meds. 2. Volume overload secondary to diastolic heart failure, cirrhosis. Continue current diuretic regim en. Continue metolazone intermittently, monitor renal function and electrolytes closely. 3. Mineral bone disorder, monitor calcium and phosphorus levels. 4. Anemia. Continue to monitor hemoglobin and hematocrit levels. 5. Ventilatory dependent respiratory failure. Vent settings and ABG was reviewed. Continue to rianna tor. 6. Right lung opacification status post thoracotomy. 7. Arrhythmia. Continue current treatment plan. 8. Diabetes. Continue current insulin regimen. 9. Sepsis. Patient is completing antibiotic course. 10. Cirrhosis. Continue medical management. Dictated By: LORY KAY DO NR/NTS Conf#: [id number] DID#: [id number] CC: VARSHA PEARSON MD;*End*
[2018-08-14] MEDS: morphine 4 MG/ML VIAL IV PRN ×2 (09:22→20:06)
--- NOTE | 2018-08-14 11:06 | CONS ---
Assessment/Plan Assessment/Plan Assessment/Plan (Daily) Ventilator setting; noted. Assessment and recommendations; 1. Patient status post right VATS decortication. There is some neurological improvement with improved aeration of the right lung. 2. VDRF. 3. Stable chronic renal insufficiency. 4. Anemia and thrombocytopenia. Continue current supportive care. Obtain follow-up chest x-ray in 48 hours. Consultation Date/Type/Reason Admit Date/Time Aug 02, 2018 at 22:00 Initial Consult Date 08/03/18 Type of Consult Pulmonary Requesting Provider: DEJUAN ORTIZ MD, [facility] [place] Date/Time of Note DATE: 08/14/18 TIME: 11:04 24 HR Interval Summary Free Text/Dictation Patient's condition is stable. Remains awake and alert. Has remained hemodynamically stable. Denies any chest pain. General exam; elderly male, on ventilator via tracheostomy, awake and alert. Currently in no distress. Exam/Review of Systems Exam Vitals Vital Signs Date Temp Pulse Resp B/P (MAP) Pulse Ox O2 O2 Flow FiO2 Time Delivery Rate 08/14/18 84 18 100 30 11:02 08/14/18 98.7 120/63 Mechanical 07:42 (82) Ventilator Intake and Output 08/13/18 08/13/18 08/14/18 1515:00 23:00 07:00 IntakeIntake Total 950 ml OutputOutput Total 950 ml 600 ml BalanceBalance 0 ml -600 ml Exam H ENT exam; supple neck, no JVD. No lymphadenopathy. Midline trachea. No thyromegaly. Patient has a tracheostomy in place. Patient is edentulous. No neck masses. Chest exam; diminished breath sounds right lung. Dressing applied to right chest wall. S1-S2 audible, no murmurs. Regular rhythm. Abdomen exam; soft, no organomegaly. Nontender. Bowel sounds audible. Extremity exam; no peripheral edema clubbing. HOSPITAL UNIT COORDINATOR exam; no focal deficit. Results Result Diagram: 08/14/18 0740 08/14/18 0740 Results 24hrs Laboratory Tests Test 08/13/18 12:31 08/13/18 17:49 08/13/18 21:25 08/14/18 03:05 Bedside Glucose 93 78 117 132 Test 08/14/18 07:40 08/14/18 08:15 White Blood Count 14.4 H Red Blood Count 2.74 L Hemoglobin 7.3 L Hematocrit 23.4 L Mean Corpuscular 85.4 Volume Mean Corpuscular 26.6 L Hemoglobin Mean Corpuscular 31.2 L Hemoglobin Concent Red Cell 18.8 H Distribution Width Platelet Count 172 Mean Platelet Volume 9.1 Immature 1.500 H Granulocytes % Neutrophils % 82.1 H Lymphocytes % 7.1 L Monocytes % 7.7 Eosinophils % 1.3 Basophils % 0.3 Nucleated Red Blood 0.0 Cells % Immature 0.210 H Granulocytes # Neutrophils # 11.9 H Lymphocytes # 1.0 Monocytes # 1.1 H Eosinophils # 0.2 Basophils # 0.0 Nucleated Red Blood 0.0 Cells # Sodium Level 131 L Potassium Level 4.1 Chloride Level 98 Carbon Dioxide Level 26 Anion Gap 7 Blood Urea Nitrogen 29 H Creatinine 2.35 H Est Glomerular 28 L Filtrat Rate mL/min Glucose Level 103 Calcium Level 8.1 L Phosphorus Level 5.6 H Magnesium Level 1.8 Bedside Glucose 115 Medications Medication Current Medications IV Flush (NS 3 ml) 3 ml PER PROTOCOL IV ; Start 08/03/18 at 00:00 Ondansetron HCl (Zofran Inj) 4 mg Q6H PRN IV NAUSEA/VOMITING Last administered on 08/03/18at 03:48; Admin Dose 4 MG; Start 08/03/18 at 00:00 Nitroglycerin (Nitroglycerin (Sl Tab) 0.4 Mg) 1 tab Q5M PRN SL .CHEST PAIN; Start 08/03/18 at 00:00 Acetaminophen (Tylenol Tab) 650 mg Q6H PRN PO .PAIN 1-3 OR TEMP Last admin istered on 08/13/18at 01:44; Admin Dose 650 MG; Start 08/03/18 at 00:00 Docusate Sodium (Colace) 100 mg Q12H PRN PO .CONSTIPATION; Start 08/03/18 at 00:00 Bisacodyl (Dulcolax) 5 mg DAILY PRN PO .CONSTIPATION; Start 08/03/18 at 00:00 Ascorbic Acid (Vitamin C) 500 mg DAILY PO Last administered on 08/14/18 08:17; Admin Dose 500 MG; Start 08/03/18 at 09:00 Chlorhexidine Gluconate (Peridex) 15 ml Q12H MM Last administered on 08/14/18at 00:10; Admin Dose 15 ML; Start 08/03/18 at 00:00 Ferrous Sulfate (Ferrous Sulfate (Ec)) 325 mg DAILY PO Last administered on 08/14/18 08:17; Admin Dose 325 MG; Start 08/03/18 at 09:00 Pantoprazole (Protonix Tab) 40 mg AC BREAKFAST PO Last administered on 07/18 08:16; Admin Dose 40 MG; Start 08/03/18 at 07:25 Sucralfate (Carafate) 1 gm AC MEALS AND BEDTIME PO Last administered on 08/14/18 08:16; Admin Dose 1 GM; Start 08/03/18 at 07:25 Albuterol (Proventil 0.083% (Neb)) 2.5 mg Q4H RESP THERAPY PRN NEB TRACHEOSTOMY Last administered on 08/14/18 07:50; Admin Dose 2.5 MG; Start 08/02/18 at 23:45 Multivitamins/ Minerals (Theragran-M) 1 tab DAILY PO Last administered on 08/14/18 08:16; Admin Dose 1 TAB; Start 08/03/18 at 09:00 Miscellaneous Information 1 ea NOTE XX ; Start 08/02/18 at 23:45 Glucose (Glutose) 15 gm Q15M PRN PO DECREASED GLUCOSE; Start 08/02/18 at 23:45 Glucose (Glutose) 22.5 gm Q15M PRN PO DECREASED GLUCOSE; Start 08/02/18 at 23:45 Dextrose (D50w Syringe) 25 ml Q15M PRN IV DECREASED GLUCOSE; Start 08/02/18 at 23:45 Dextrose (D50w Syringe) 50 ml Q15M PRN IV DECREASED GLUCOSE; Start 08/02/18 at 23:45 Glucagon (Glucagen) 1 mg Q15M PRN IM DECREASED GLUCOSE; Start 08/02/18 at 23:45 Glucose (Glutose) 15 gm Q15M PRN BUCCAL DECREASED GLUCOSE; Start 08/02/18 at 23:45 Simethicone (Mylicon) 80 mg Q8H PRN PO DISTENSION/GAS/BLOATING Last administered on 08/04/18 01:55; Admin Dose 80 MG; Start 08/03/18 at 04:30 Amlodipine Besylate (Norvasc) 5 mg DAILY PO Last administered on 08/14/18 08:17; Admin Dose 5 MG; Start 08/03/18 at 09:00 Fluconazole (Diflucan) 100 mg DAILY PO Last administered on 08/14/18 08:16; Admin Dose 100 MG; Start 08/03/18 at 09:00 Linezolid (Zyvox) 600 mg BID PO Last administered on 08/14/18 08:16; Admin Dose 600 MG; Start 08/03/18 at 09:00 Amikacin Sulfate (Amikacin Iv Per Pharmacy) AMIKACIN PER PHARMACY NOTE XX ; Start 08/03/18 at 11:30 Insulin Aspart (Novolog Insulin Pen) NOVOLOG *MILD* ALGORI... AC MEALS AND BEDTIME SC Last administered on 08/12/18 18:08; Admin Dose 1 UNIT; Start 08/03/18 at 17:25 Linagliptin (Tradjenta) 5 mg DAILY PO Last administered on 08/14/18 08:17; Adm in Dose 5 MG; Start 08/04/18 at 09:00 Diagnostic Test (Pha) (Accu-Chek) 1 ea 02 XX Last administered on 08/14/18 02:00; Admin Dose 1 EA; Start 08/04/18 at 02:00 Insulin Aspart (Novolog Insulin Pen) 10 unit WITH MEALS SC Last administered on 08/14/18 08:50; Admin Dose 10 UNIT; Start 08/03/18 at 17:55 Acetylcysteine (Mucomyst) 2 ml Q8H RESP THERAPY NEB Last administered on 08/14/18 07:50; Admin Dose 2 ML; Start 08/04/18 at 08:00 Collagenase (Santyl) 1 applic DAILY TOP Last administered on 08/14/18 08:17; Admin Dose 1 APPLIC; Start 08/04/18 at 09:00 Amikacin Sulfate 500 mg/Sodium Chloride 102 ml @ 101.6 mls/ hr Q48H IVPB Last administered on 08/13/18 21:32; Admin Dose 101.6 MLS/HR; Start 08/05/18 at 20:00 Diphenhydramine HCl (Benadryl) 25 mg Q6H PRN IV rash or itching Last admin istered on 08/10/18 22:22; Admin Dose 25 MG; Start 08/05/18 at 11:00 Metoprolol Tartrate (Lopressor) 25 mg BID PO Last administered on 08/14/18 08:17; Admin Dose 25 MG; Start 08/06/18 at 13:30 Insulin Glargine (Lantus) 18 units DAILY@2000 SC Last administered on 08/13/18 21:35; Admin Dose 18 UNITS; Start 08/07/18 at 20:00 Nystatin (Nystatin Powder) 1 applic BID TOP Last administered on 08/14/18 08:17; Admin Dose 1 APPLIC; Start 08/08/18 at 12:30 Enoxaparin Sodium (Lovenox) 30 mg Q24H SC Last administered on 08/09/18 11:42; Admin Dose 30 MG; Start 08/08/18 at 12:30; Status Hold Enoxaparin Sodium (Lovenox) 80 mg Q24H SC Last administered on 08/09/18 11:41; Admin Dose 80 MG; Start 08/08/18 at 12:30; Status Hold Furosemide (Lasix) 40 mg BID IV Last administered on 08/14/18 08:17; Admin Dose 40 MG; Start 08/09/18 at 09:00 Digoxin (Digoxin) 0.125 mg DAILY@13 PO Last administered on 08/13/18 12:39; Admin Dose 0.125 MG; Start 08/10/18 at 13:00 Morphine Sulfate (morphine) 4 mg Q2H PRN IV .PAIN 7-10 Last administered on 08/14/18 09:22; Admin Dose 4 MG; Start 08/12/18 at 10:30 WARREN HOLLIS Aug 14, 2018 11:06
[2018-08-14] MEDS: DIGOXIN 0.125 MG TAB PO SCH (13:00)
--- NOTE | 2018-08-14 14:18 | CONS ---
Assessment/Plan Assessment/Plan Hospital Course (Demo Recall) Respiratory failure Pleural effusion s/p thoracotomy Paroxysmal atrial fibrillation Hypertension Recurrent anemia, currently off anticoagulation Preserved ejection fraction Moderate pulmonary hypertension -Patient s/p thoracotomy -cont bb as tolerated -diuretics as renal function permits as per nephrology -We will supplement magnesium Consultation Date/Type/Reason Admit Date/Time Aug 02, 2018 at 22:00 Initial Consult Date 08/03/18 Type of Consult Cardiology Requesting Provider: DEJUAN ORTIZ MD, [facility] Date/Time of Note DATE: 08/14/18 TIME: 14:17 24 HR Interval Summary Free Text/Dictation Shortness of breath is better. Denies palpitations Exam/Review of Systems Vital Signs Vitals Vital Signs Date Temp Pulse Resp B/P (MAP) Pulse Ox O2 O2 Flow FiO2 Time Delivery Rate 08/14/18 66 18 98 30 12:50 08/14/18 98.2 114/50 Mechanical 11:48 (71) Ventilator Intake and Output 08/13/18 08/13/18 08/14/18 1515:00 23:00 07:00 IntakeIntake Total 950 ml OutputOutput Total 950 ml 600 ml BalanceBalance 0 ml -600 ml Exam Constitutional: alert, oriented (No apparent distress) Head: normocephalic Respiratory: other (Coarse breath sounds bilaterally) Cardiovascular: regular rate and rhythm (S1-S2 heard) Gastrointestinal: soft, non-tender, bowel sounds Extremities: edema Labs Result Diagram: 08/14/18 0740 08/14/18 0740 Results 24hrs Laboratory Tests Test 08/13/18 17:49 08/13/18 21:25 08/14/18 03:05 08/14/18 07:40 Bedside Glucose 78 117 132 White Blood Count 14.4 H Red Blood Count 2.74 L Hemoglobin 7.3 L Hematocrit 23.4 L Mean Corpuscular 85.4 Volume Mean Corpuscular 26.6 L Hemoglobin Mean Corpuscular 31.2 L Hemoglobin Concent Red Cell 18.8 H Distribution Width Platelet Count 172 Mean Platelet Volume 9.1 Immature 1.500 H Granulocytes % Neutrophils % 82.1 H Lymphocytes % 7.1 L Monocytes % 7.7 Eosinophils % 1.3 Basophils % 0.3 Nucleated Red Blood 0.0 Cells % Immature 0.210 H Granulocytes # Neutrophils # 11.9 H Lymphocytes # 1.0 Monocytes # 1.1 H Eosinophils # 0.2 Basophils # 0.0 Nucleated Red Blood 0.0 Cells # Sodium Level 131 L Potassium Level 4.1 Chloride Level 98 Carbon Dioxide Level 26 Anion Gap 7 Blood Urea Nitrogen 29 H Creatinine 2.35 H Est Glomerular 28 L Filtrat Rate mL/min Glucose Level 103 Calcium Level 8.1 L Phosphorus Level 5.6 H Magnesium Level 1.8 Test 08/14/18 08:15 08/14/18 12:17 Bedside Glucose 115 133 Medications Medications Current Medications IV Flush (NS 3 ml) 3 ml PER PROTOCOL IV ; Start 08/03/18 at 00:00 Ondansetron HCl (Zofran Inj) 4 mg Q6H PRN IV NAUSEA/VOMITING Last administered on 08/03/18 03:48; Admin Dose 4 MG; Start 08/03/18 at 00:00 Nitroglycerin (Nitroglycerin (Sl Tab) 0.4 Mg) 1 tab Q5M PRN SL .CHEST PAIN; Start 08/03/18 at 00:00 Acetaminophen (Tylenol Tab) 650 mg Q6H PRN PO .PAIN 1-3 OR TEMP Last administered on 08/13/18 01:44; Admin Dose 650 MG; Start 08/03/18 at 00:00 Docusate Sodium (Colace) 100 mg Q12H PRN PO .CONSTIPATION; Start 08/03/18 at 00:00 Bisacodyl (Dulcolax) 5 mg DAILY PRN PO .CONSTIPATION; Start 08/03/18 at 00:00 Ascorbic Acid (Vitamin C) 500 mg DAILY PO Last administered on 08/14/18 08:17; Admin Dose 500 MG; Start 08/03/18 at 09:00 Chlorhexidine Gluconate (Peridex) 15 ml Q12H MM Last administered on 08/14/18 12:18; Admin Dose 15 ML; Start 08/03/18 at 00:00 Ferrous Sulfate (Ferrous Sulfate (Ec)) 325 mg DAILY PO Last administered on 08/14/18 08:17; Admin Dose 325 MG; Start 08/03/18 at 09:00 Pantoprazole (Protonix Tab) 40 mg AC BREAKFAST PO Last administered on 08/14/18 08:16; Admin Dose 40 MG; Start 08/03/18 at 07:25 Sucralfate (Carafate) 1 gm AC MEALS AND BEDTIME PO Last administered on 08/14/18 12:19; Admin Dose 1 GM; Start 08/03/18 at 07:25 Albuterol (Proventil 0.083% (Neb)) 2.5 mg Q4H RESP THERAPY PRN NEB TRACHEOSTOMY Last administered on 08/14/18 07:50; Admin Dose 2.5 MG; Start 08/02/18 at 23:45 Multivitamins/ Minerals (Theragran-M) 1 tab DAILY PO Last administered on 08/14/18 08:16; Admin Dose 1 TAB; Start 08/03/18 at 09:00 Miscellaneous Information 1 ea NOTE XX ; Start 08/02/18 at 23:45 Glucose (Glutose) 15 gm Q15M PRN PO DECREASED GLUCOSE; Start 08/02/18 at 23:45 Glucose (Glutose) 22.5 gm Q15M PRN PO DECREASED GLUCOSE; Start 08/02/18 at 23:45 Dextrose (D50w Syringe) 25 ml Q15M PRN IV DECREASED GLUCOSE; Start 08/02/18 at 23:45 Dextrose (D50w Syringe) 50 ml Q15M PRN IV DECREASED GLUCOSE; Start 08/02/18 at 23:45 Glucagon (Glucagen) 1 mg Q15M PRN IM DECREASED GLUCOSE; Start 08/02/18 at 23:45 Glucose (Glutose) 15 gm Q15M PRN BUCCAL DECREASED GLUCOSE; Start 08/02/18 at 23:45 Simethicone (Mylicon) 80 mg Q8H PRN PO DISTENSION/GAS/BLOATING Last administered on 08/04/18at 01:55; Admin Dose 80 MG; Start 08/03/18 at 04:30 Amlodipine Besylate (Norvasc) 5 mg DAILY PO Last administered on 08/14/18 08:17; Admin Dose 5 MG; Start 08/03/18 at 09:00 Fluconazole (Diflucan) 100 mg DAILY PO Last administered on 08/14/18 08:16; Admin Dose 100 MG; Start 08/03/18 at 09:00 Linezolid (Zyvox) 600 mg BID PO Last administered on 08/14/18 08:16; Admin Dose 600 MG; Start 08/03/18 at 09:00 Amikacin Sulfate (Amikacin Iv Per Pharmacy) AMIKACIN PER PHARMACY NOTE XX ; Start 08/03/18 at 11:30 Insulin Aspart (Novolog Insulin Pen) NOVOLOG *MILD* ALGORI... AC MEALS AND BEDTIME SC Last administered on 08/12/18 18:08; Admin Dose 1 UNIT; Start 08/03/18 at 17:25 Linagliptin (Tradjenta) 5 mg DAILY PO Last administered on 08/14/18 08:17; Admin Dose 5 MG; Start 08/04/18 at 09:00 Diagnostic Test (Pha) (Accu-Chek) 1 ea 02 XX Last administered on 08/14/18 02:00; Admin Dose 1 EA; Start 08/04/18 at 02:00 Insulin Aspart (Novolog Insulin Pen) 10 unit WITH MEALS SC Last administered on 08/14/18 13:53; Admin Dose 10 UNIT; Start 08/03/18 at 17:55 Acetylcysteine (Mucomyst) 2 ml Q8H RESP THERAPY NEB Last administered on 08/14/18 07:50; Admin Dose 2 ML; Start 08/04/18 at 08:00 Collagenase (Santyl) 1 applic DAILY TOP Last administered on 08/14/18 08:17; Admin Dose 1 APPLIC; Start 08/04/18 at 09:00 Amikacin Sulfate 500 mg/Sodium Chloride 102 ml @ 101.6 mls/ hr Q48H IVPB Last administered on 08/13/18 21:32; Admin Dose 101.6 MLS/HR; Start 08/05/18 at 20:00 Diphenhydramine HCl (Benadryl) 25 mg Q6H PRN IV rash or itching Last administered on 08/10/18 22:22; Admin Dose 25 MG; Start 08/05/18 at 11:00 Metoprolol Tartrate (Lopressor) 25 mg BID PO Last administered on 08/14/18 08:17; Admin Dose 25 MG; Start 08/06/18 at 13:30 Insulin Glargine (Lantus) 18 units DAILY@2000 SC Last administered on 08/13/18 21:35; Admin Dose 18 UNITS; Start 08/07/18 at 20:00 Nystatin (Nystatin Powder) 1 applic BID TOP Last administered on 08/14/18 08:17; Admin Dose 1 APPLIC; Start 08/08/18 at 12:30 Enoxaparin Sodium (Lovenox) 30 mg Q24H SC Last administered on 08/09/18 11:42; Admin Dose 30 MG; Start 08/08/18 at 12:30; Status Hold Enoxaparin Sodium (Lovenox) 80 mg Q24H SC Last administered on 08/09/18 11:41; Admin Dose 80 MG; Start 08/08/18 at 12:30; Status Hold Furosemide (Lasix) 40 mg BID IV Last administered on 08/14/18 08:17; Admin Dose 40 MG; Start 08/09/18 at 09:00 Digoxin (Digoxin) 0.125 mg DAILY@13 PO Last administered on 08/13/18 12:39; Admin Dose 0.125 MG; Start 08/10/18 at 13:00 Morphine Sulfate (morphine) 4 mg Q2H PRN IV .PAIN 7-10 Last administered on 09:22; Admin Dose 4 MG; Start 08/12/18 at 10:30 Nasir Da Silva DO Aug 14, 2018 14:18
[2018-08-14] MEDS ORDERED: MAGNESIUM SULFATE 2 GM/50 ML 50 ML IVPB ONE (14:30)
--- NOTE | 2018-08-14 15:48 | CONS ---
Assessment/Plan Assessment/Plan Hospital Course (Demo Recall) No events, looks comfortable WBC 14.4 platelets 172 neutrophils 82.1 BUN 29 creatinine 2.35 Microbiology: Sputum culture grew Serratia and pseudomonas aeruginosa, multidrug-resistant, urine culture grew Annmarie albicans Antimicrobials: Amikacin, Zyvox, fluconazole Indwelling: Trach Physical examination: Well-developed obese fragile elderly man who is awake in no distress. Head atraumatic normocephalic Neck is supple, tracheostomy present. Chest rise symmetrical breath sounds diminished bases. Heart: S1-S2. Abdomen soft bowel sounds present, extremities without cyanosis, + edema Assessment: 1. Systemic inflammatory response syndrome 2. R Empyema, s/p VATS 08/11/18 3. Acute on chronic kidney disease 4. Dysphagia 5. Fungal UTI 6. Paroxysmal atrial fibrillation 7. Diabetes Plan: Remains stable, continue abx Consultation Date/Type/Reason Admit Date/Time Aug 02, 2018 at 22:00 Initial Consult Date Type of Consult id Requesting Provider: DEJUAN ORTIZ MD, [facility] Date/Time of Note DATE: 08/14/18 TIME: 15:47 Exam/Review of Systems Exam Vitals Vital Signs Date Temp Pulse Resp B/P (MAP) Pulse Ox O2 O2 Flow FiO2 Time Delivery Rate 08/14/18 98.2 110 20 125/93 92 Mechanical 15:05 (104) Ventilator 08/14/18 30 12:50 Intake and Output 08/13/18 08/13/18 08/14/18 1414:59 22:59 06:59 IntakeIntake Total 950 ml OutputOutput Total 950 ml 600 ml BalanceBalance 0 ml -600 ml Results Result Diagram: 08/14/18 0740 08/14/18 0740 Results 24hrs Laboratory Tests Test 08/13/18 17:49 08/13/18 21:25 08/14/18 03:05 08/14/18 07:40 Bedside Glucose 78 117 132 White Blood Count 14.4 H Red Blood Count 2.74 L Hemoglobin 7.3 L Hematocrit 23.4 L Mean Corpuscular 85.4 Volume Mean Corpuscular 26.6 L Hemoglobin Mean Corpuscular 31.2 L Hemoglobin Concent Red Cell 18.8 H Distribution Width Platelet Count 172 Mean Platelet Volume 9.1 Immature 1.500 H Granulocytes % Neutrophils % 82.1 H Lymphocytes % 7.1 L Monocytes % 7.7 Eosinophils % 1.3 Basophils % 0.3 Nucleated Red Blood 0.0 Cells % Immature 0.210 H Granulocytes # Neutrophils # 11.9 H Lymphocytes # 1.0 Monocytes # 1.1 H Eosinophils # 0.2 Basophils # 0.0 Nucleated Red Blood 0.0 Cells # Sodium Level 131 L Potassium Level 4.1 Chloride Level 98 Carbon Dioxide Level 26 Anion Gap 7 Blood Urea Nitrogen 29 H Creatinine 2.35 H Est Glomerular 28 L Filtrat Rate mL/min Glucose Level 103 Calcium Level 8.1 L Phosphorus Level 5.6 H Magnesium Level 1.8 Test 08/14/18 08:15 08/14/18 12:17 Bedside Glucose 115 133 Medications Medication Current Medications IV Flush (NS 3 ml) 3 ml PER PROTOCOL IV ; Start 08/03/18 at 00:00 Ondansetron HCl (Zofran Inj) 4 mg Q6H PRN IV NAUSEA/VOMITING Last administered on 08/03/18at 03:48; Admin Dose 4 MG; Start 08/03/18 at 00:00 Nitroglycerin (Nitroglycerin (Sl Tab) 0.4 Mg) 1 tab Q5M PRN SL .CHEST PAIN; Start 08/03/18 at 00:00 Acetaminophen (Tylenol Tab) 650 mg Q6H PRN PO .PAIN 1-3 OR TEMP Last ad ministered on 08/13/18at 01:44; Admin Dose 650 MG; Start 08/03/18 at 00:00 Docusate Sodium (Colace) 100 mg Q12H PRN PO .CONSTIPATION; Start 08/03/18 at 00:00 Bisacodyl (Dulcolax) 5 mg DAILY PRN PO .CONSTIPATION; Start 08/03/18 at 00:00 Ascorbic Acid (Vitamin C) 500 mg DAILY PO Last administered on 08/14/18 08:17; Admin Dose 500 MG; Start 08/03/18 at 09:00 Chlorhexidine Gluconate (Peridex) 15 ml Q12H MM Last administered on 08/14/18 12:18; Admin Dose 15 ML; Start 08/03/18 at 00:00 Ferrous Sulfate (Ferrous Sulfate (Ec)) 325 mg DAILY PO Last administered on 08/14/18 08:17; Admin Dose 325 MG; Start 08/03/18 at 09:00 Pantoprazole (Protonix Tab) 40 mg AC BREAKFAST PO Last administered on 08/14/18 08:16; Admin Dose 40 MG; Start 08/03/18 at 07:25 Sucralfate (Carafate) 1 gm AC MEALS AND BEDTIME PO Last administered on 08/14/18 12:19; Admin Dose 1 GM; Start 08/03/18 at 07:25 Albuterol (Proventil 0.083% (Neb)) 2.5 mg Q4H RESP THERAPY PRN NEB TRACHEOSTOMY Last administered on 08/14/18 07:50; Admin Dose 2.5 MG; Start 08/02/18 at 23:45 Multivitamins/ Minerals (Theragran-M) 1 tab DAILY PO Last administered on 08/14/18 08:16; Admin Dose 1 TAB; Start 08/03/18 at 09:00 Miscellaneous Information 1 ea NOTE XX ; Start 08/02/18 at 23:45 Glucose (Glutose) 15 gm Q15M PRN PO DECREASED GLUCOSE; Start 08/02/18 at 23:45 Glucose (Glutose) 22.5 gm Q15M PRN PO DECREASED GLUCOSE; Start 08/02/18 at 23:45 Dextrose (D50w Syringe) 25 ml Q15M PRN IV DECREASED GLUCOSE; Start 08/02/18 at 23:45 Dextrose (D50w Syringe) 50 ml Q15M PRN IV DECREASED GLUCOSE; Start 08/02/18 at 23:45 Glucagon (Glucagen) 1 mg Q15M PRN IM DECREASED GLUCOSE; Start 08/02/18 at 23:45 Glucose (Glutose) 15 gm Q15M PRN BUCCAL DECREASED GLUCOSE; Start 08/02/18 at 23:45 Simethicone (Mylicon) 80 mg Q8H PRN PO DISTENSION/GAS/BLOATING Last administered on 08/04/18at 01:55; Admin Dose 80 MG; Start 08/03/18 at 04:30 Amlodipine Besylate (Norvasc) 5 mg DAILY PO Last administered on 08/14/18 08:17; Admin Dose 5 MG; Start 08/03/18 at 09:00 Fluconazole (Diflucan) 100 mg DAILY PO Last administered on 08/14/18 08:16; Admin Dose 100 MG; Start 08/03/18 at 09:00 Linezolid (Zyvox) 600 mg BID PO Last administered on 08/14/18 08:16; Admin Dose 600 MG; Start 08/03/18 at 09:00 Amikacin Sulfate (Amikacin Iv Per Pharmacy) AMIKACIN PER PHARMACY NOTE XX ; Start 08/03/18 at 11:30 Insulin Aspart (Novolog Insulin Pen) NOVOLOG *MILD* ALGORI... AC MEALS AND BEDTIME SC Last administered on 08/12/18 18:08; Admin Dose 1 UNIT; Start 08/03/18 at 17:25 Linagliptin (Tradjenta) 5 mg DAILY PO Last administered on 08/14/18 08:17; Admin Dose 5 MG; Start 08/04/18 at 09:00 Diagnostic Test (Pha) (Accu-Chek) 1 ea 02 XX Last administered on 08/14/18 02:00; Admin Dose 1 EA; Start 08/04/18 at 02:00 Insulin Aspart (Novolog Insulin Pen) 10 unit WITH MEALS SC Last administered on 08/14/18 13:53; Admin Dose 10 UNIT; Start 08/03/18 at 17:55 Acetylcysteine (Mucomyst) 2 ml Q8H RESP THERAPY NEB Last administered on 08/14/18 07:50; Admin Dose 2 ML; Start 08/04/18 at 08:00 Collagenase (Santyl) 1 applic DAILY TOP Last administered on 08/14/18 08:17; Admin Dose 1 APPLIC; Start 08/04/18 at 09:00 Amikacin Sulfate 500 mg/Sodium Chloride 102 ml @ 101.6 mls/ hr Q48H IVPB Last administered on 08/13/18 21:32; Admin Dose 101.6 MLS/HR; Start 08/05/18 at 20:00 Diphenhydramine HCl (Benadryl) 25 mg Q6H PRN IV rash or itching Last ad ministered on 08/10/18 22:22; Admin Dose 25 MG; Start 08/05/18 at 11:00 Metoprolol Tartrate (Lopressor) 25 mg BID PO Last administered on 08/14/18 08:17; Admin Dose 25 MG; Start 08/06/18 at 13:30 Insulin Glargine (Lantus) 18 units DAILY@2000 SC Last administered on 08/13/18 21:35; Admin Dose 18 UNITS; Start 08/07/18 at 20:00 Nystatin (Nystatin Powder) 1 applic BID TOP Last administered on 08/14/18 08:17; Admin Dose 1 APPLIC; Start 08/08/18 at 12:30 Enoxaparin Sodium (Lovenox) 30 mg Q24H SC Last administered on 08/09/18 11:42; Admin Dose 30 MG; Start 08/08/18 at 12:30; Status Hold Enoxaparin Sodium (Lovenox) 80 mg Q24H SC Last administered on 08/09/18 11:41; Admin Dose 80 MG; Start 08/08/18 at 12:30; Status Hold Furosemide (Lasix) 40 mg BID IV Last administered on 08/14/18 08:17; Admin Dose 40 MG; Start 08/09/18 at 09:00 Digoxin (Digoxin) 0.125 mg DAILY@13 PO Last administered on 08/13/18 12:39; Admin Dose 0.125 MG; Start 08/10/18 at 13:00 Morphine Sulfate (morphine) 4 mg Q2H PRN IV .PAIN 7-10 Last administered on 08/14/18 09:22; Admin Dose 4 MG; Start 08/12/18 at 10:30 Magnesium Sulfate 50 ml @ 25 mls/hr ONCE ONCE IVPB Last administered on 08/14/18 15:31; Admin Dose 25 MLS/HR; Start 08/14/18 at 14:30; Stop 08/14/18 at 16:29 JUANIS FINN NP Aug 14, 2018 15:48
--- NOTE | 2018-08-14 17:49 | DS ---
Date/Time of Note Date/Time of Note DATE: 08/14/18 TIME: 17:43 Discharge Summary Admission/Discharge Info Admit Date/Time Aug 02, 2018 at 22:00 Discharge Date/Time Aug 14, 2018 Discharge Diagnosis R lung empyema Patient Condition: Fair Consults Dr. Barnard, cardiovascular surgery. Dr. Raya, nephrology Dr. Vega, cardiology Dr. Ponce, pulmonary medicine Procedures 08/07/18: CT guided placement of 2 right chest tubes. 08/11/18: Right thoracotomy, partial decortication of the lower lobe, and Eloesser flap creation. Hx of Present Illness Chief complaint: Transfer from [place] for shortness of breath, lung collapse This is a 68-year-old male with a long-standing history of tracheostomy with a recent admission to [facility] for acute hypoxemia. Patient had bronchoscopies as well as an unsuccessful attempt at right thoracentesis with only 5 mL's of fluid removed. This had been attempted again however fluid was too thick. Patient also was noted to have pulmonary investigations and infiltrates and was being treated with antibiotics by infectious disease. He is currently on mechanical ventilatory support. He was transferred to [facility] to have CT surgery evaluation for likely surgical intervention given his history of lung collapse and likely loculated empyema. Patient is currently awake he is able to communicate minimally with a tracheostomy. He denies any symptoms of shortness of breath or any pain. Allergies: Meropenem Medications: See [facility] Hospital Course The patient was evaluated by Dr. Barnard but was determined to not be the most optimal surgical candidate. First decided on medical management with chest tube placement for drainage. This was done by Dr. Henderson on 08/07/18. He tolerated this well but there was not much improvement on radiology. He was then scheduled for VATS. On 08/11 he was taken to OR for right thoracotomy, partial decortication of the lower lobe, and Eloesser flap creation. Postoperative course unremarkable, he tolerated surgery well. Now plan for transfer back to [place]. Home Meds Reported Medications Amlodipine Besylate* (Amlodipine Besylate*) 2.5 Mg Tablet, 5 MG PO DAILY, #30 TAB 08/03/18 Acetylcysteine* (Mucomyst*) 4 Ml Soln, 2 ML NEB Q8, EA 08/03/18 Sodium Ferric Gluconate Complx (FERRLECIT 62.5 MG/5 ML VIAL) 62.5 Mg/5 Ml Soln, 125 MG IV DAILY 08/03/18 Loratadine (Loratadine) 10 Mg Capsule, 10 MG PO DAILY, CAP 08/03/18 Nystatin* (Nystatin*) 15 Gm Cr, 1 APPLIC TOP BID, #1 TUB 08/03/18 Metoprolol Tartrate* (Lopressor*) 25 Mg Tablet, 25 MG PO BID, #60 TAB 08/03/18 Linezolid* (Zyvox*) 600 Mg Tablet, 600 MG PO BID, TAB 08/03/18 Linagliptin (TRADJENTA) 5 Mg Tablet, 5 MG PO DAILY, TAB 08/03/18 Fluconazole* (Fluconazole*) 100 Mg Tablet, 100 MG PO DAILY, TAB 08/03/18 Amikacin Sulfate* (Amikacin* Pediatric IV Syringe) 5 Mg/Ml Soln, 400 MG IV q48hr, EA 08/03/18 Insulin Aspart* (Novolog Insulin Pen*) 100 Unit/Ml Soln, 0 SC .SLIDING SCALE AC, EA OR 5 UNITS AC MEALS TID 07/18/18 Insulin Glargine,Hum.rec.anlog (Basaglar Kwikpen U-100) 100 Unit/1 Ml Insuln.pen, 28 UNIT SC QHS, EA 07/18/18 Insulin Glargine,Hum.rec.anlog (Basaglar Kwikpen U-100) 100 Unit/1 Ml Insuln.pen, 18 UNIT SC QAM, EA 07/18/18 Acetaminophen* (Acetaminophen*) 500 MG Extra Strength Tablet, 1000 MG PO Q8H PRN for PAIN, TAB 07/18/18 Acetaminophen* (Tylenol*) 325 Mg Tablet, 650 MG PO Q4H PRN for MILD PAIN LEVEL 1-3, TAB AND FEVER 07/18/18 Ascorbic Acid (Vitamin C) 500 Mg Tab, 500 MG PO DAILY, TAB 07/18/18 Lorazepam* (Lorazepam*) 1 Mg Tablet, 1 MG PO Q6 PRN for ANXIETY, #60 TAB 07/18/18 Sucralfate* (Carafate*) 1 Gm Tab, 1 GM PO AC MEALS AND BEDTIME, TAB 07/18/18 Rivaroxaban* (Xarelto*) 15 Mg Tablet, 15 MG PO WITH DINNER, TAB 07/18/18 Multivitamin with Minerals (Multivitamins with Minerals) 1 Each Tablet, 1 EACH PO DAILY, TAB 07/18/18 Pantoprazole* (Pantoprazole*) 40 Mg Tablet.dr, 40 MG PO AC BREAKFAST, TAB 07/18/18 Polyethylene Glycol* (Miralax*) 17 Gm Powd.pack, 17 GM PO DAILY, #30 PACKET 07/18/18 Ferrous Sulfate* (Ferrous Sulfate*) 325 Mg Tabec, 325 MG PO DAILY, TAB 07/18/18 Digoxin* (Digitek*) 250 Mcg Tablet, 0.25 MG PO DAILY, TAB HOLD IF HR<60 07/18/18 Cranberry Fruit (CRANBERRY) 450 Mg Tablet, 450 MG PO DAILY, TAB 07/18/18 Chlorhexidine Gluconate (Peridex) 473 Ml Mouthwash, 15 ML MM Q12H, BOTTLE 07/18/18 Ipratropium-Albuterol (Ipratropium-Albuterol) 0.5-3 Mg/3 Ml Ampul.neb, 3 ML INHALATION Q4H PRN for VIA TRACHEOSTOMY, #30 VIAL 07/18/18 Albuterol Sulfate* (Albuterol Sulfate* Neb) 0.083%-3 Ml Neb, 2.5 MG NEB Q4H PRN for TRACHEOSTOMY, #30 VIAL AND Q6H NEEDED 07/18/18 Primary Care Provider Tay Friedman MD Time spent on discharge: > 30 minutes Pending Labs Laboratory Tests Test 08/13/18 17:49 08/13/18 21:25 08/14/18 03:05 08/14/18 07:40 Bedside 78 117 132 Glucose mg/dL (70-220) mg/dL (70-220) mg/dL (70-220) White Blood 14.4 Count 10^3/ul (4.8-1 0.8) Red Blood 2.74 Count 10^6/ul (4.70- 6.10) Hemoglobin 7.3 g/dl (14.0-18. 0) Hematocrit 23.4 % (42.0-52.0) Mean 85.4 Corpuscular fl (82.0-101.0 Volume ) Mean 26.6 Corpuscular pg (29.0-33.0) Hemoglobin Mean 31.2 Corpuscular g/dl (32.0-37. Hemoglobin Conc 0) ent Red Cell 18.8 Distribution % (11.5-14.5) Width Platelet Count 172 10^3/UL (140-4 15) Mean Platelet 9.1 Volume fl (7.4-10.4) Immature 1.500 Granulocytes % % (0.001-0.429 ) Neutrophils % 82.1 % (39.0-77.0) Lymphocytes % 7.1 % (15.0-51.0) Monocytes % 7.7 % (0.0-11.0) Eosinophils % 1.3 % (0.0-7.0) Basophils % 0.3 % (0.0-2.0) Nucleated Red 0.0 Blood Cells % /100WBC (0.0-0 .0) Immature 0.210 Granulocytes # 10^3/ul (0.0-0 .031) Neutrophils # 11.9 10^3/ul (1.6-7 .5) Lymphocytes # 1.0 10^3/ul (0.8-2 .9) Monocytes # 1.1 10^3/ul (0.3-0 .9) Eosinophils # 0.2 10^3/ul (0.0-0 .5) Basophils # 0.0 10^3/ul (0.0-0 .1) Nucleated Red 0.0 Blood Cells # 10^3/ul (0.0-0 .0) Sodium Level 131 mmol/L (135-14 4) Potassium 4.1 Level mmol/L (3.5-5. 1) Chloride Level 98 mmol/L (97-110 ) Carbon Dioxide 26 Level mmol/L (21-31) Anion Gap 7 (5-13) Blood Urea 29 Nitrogen mg/dl (7-20) Creatinine 2.35 mg/dl (0.61-1. 24) Est Glomerular 28 Filtrat mL/min (>60) Rate mL/min Glucose Level 103 mg/dl (70-220) Calcium Level 8.1 mg/dl (8.4-10. 2) Phosphorus 5.6 Level mg/dl (2.5-4.9 ) Magnesium 1.8 Level mg/dl (1.7-2.5 ) Test 08/14/18 08:15 08/14/18 12:17 Bedside 115 133 Glucose mg/dL (70-220) mg/dL (70-220) LALITO CENTENO MD Aug 14, 2018 17:49
--- NOTE | 2018-08-14 18:33 | CONS ---
Assessment/Plan Assessment/Plan Problems: (1) Type 2 diabetes mellitus with diabetic chronic kidney disease Status: Chronic Comment: Good glycemic control. Ready for transfer back to [facility]. Cont. current insulin doses there. Will follow after transfer. 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: with snf use Chronic kidney disease stage: stage 3 (moderate) Qualified Codes: E11.22 - Type 2 diabetes mellitus with diabetic chronic kidney disease; N18.3 - Chronic kidney disease, stage 3 (moderate); Z79.4 - manager intermediate (current) use of insulin Consultation Date/Type/Reason Admit Date/Time Aug 02, 2018 at 22:00 Initial Consult Date 08/03/18 Type of Consult Endocrinology Reason for Consultation T2DM management Requesting Provider: DEJUAN ORTIZ MD, [facility] Date/Time of Note DATE: 08/14/18 TIME: 18:31 24 HR Interval Summary Constitutional: no complaints Detailed Summary Respiratory: pain (R chest s/p decortication/VATS) Cardiovascular: no complaints Gastrointestinal: no complaints Genitourinary: no complaints Musculoskeletal: no complaints Neurologic: no complaints Exam/Review of Systems Exam Vitals VS - Last 72 Hours, by Label Date Temp Pulse Resp B/P (MAP) Pulse Ox O2 O2 Flow FiO2 Time Delivery Rate 08/14/18 77 20 98 30 17:08 08/14/18 64 16:02 08/14/18 82 22 97 30 15:35 08/14/18 98.2 110 20 125/93 92 [employer] 15:05 (104) l Ventilato r 08/14/18 66 18 98 30 12:50 08/14/18 58 12:00 08/14/18 98.2 67 18 114/50 99 [employer] 11:48 (71) l Ventilato r 08/14/18 84 18 100 30 11:02 08/14/18 76 18 100 30 09:25 08/14/18 83 18 96 30 07:51 08/14/18 98.7 78 19 120/63 97 [employer] 07:42 (82) l Ventilato r 08/14/18 65 18 100 30 04:53 08/14/18 98.8 74 18 120/64 94 04:22 (82) 08/14/18 68 04:00 08/14/18 66 18 100 30 03:54 08/14/18 66 18 100 30 01:35 08/14/18 98.8 73 18 112/58 96 00:19 (76) 08/14/18 84 00:00 08/13/18 65 18 100 30 23:47 08/13/18 66 18 100 30 21:52 08/13/18 98.7 69 18 113/56 95 20:23 (75) 08/13/18 72 20:00 08/13/18 65 18 100 30 19:38 08/13/18 76 22 100 30 17:20 08/13/18 78 16:27 08/13/18 98.3 77 20 116/58 97 16:03 (77) 08/13/18 68 19 100 30 15:35 08/13/18 78 21 99 30 13:20 08/13/18 74 12:32 08/13/18 80 18 99 30 11:35 08/13/18 98.3 68 20 114/57 98 11:24 (76) 08/13/18 80 18 99 30 09:20 08/13/18 83 08:58 08/13/18 79 20 98 30 07:50 08/13/18 98.0 78 20 118/57 93 07:42 (77) 08/13/18 80 23 97 40 05:38 08/13/18 99.8 84 18 126/58 95 04:00 (80) 08/13/18 77 04:00 08/13/18 81 19 97 40 03:22 08/13/18 98.5 02:30 08/13/18 98.5 02:29 08/13/18 100.0 01:44 08/13/18 100.0 01:40 08/13/18 76 19 96 40 01:40 08/13/18 83 00:00 08/13/18 99.8 83 18 129/58 97 00:00 (81) 08/12/18 86 18 98 40 23:38 08/12/18 88 18 98 40 21:10 08/12/18 87 20:00 08/12/18 40 20:00 08/12/18 99.1 89 18 134/63 93 20:00 (86) 08/12/18 81 19 97 40 19:48 08/12/18 91 18 100 30 17:43 08/12/18 97 16:00 08/12/18 92 18 100 30 15:29 08/12/18 98.7 100 18 119/55 97 15:08 (76) 08/12/18 101 14:15 08/12/18 100 19 95 40 13:20 08/12/18 99 18 113/69 97 Mechanica 13:00 (84) l Ventilato r 08/12/18 40 12:00 08/12/18 97.9 115 29 126/63 91 Mechanica 12:00 (84) l Ventilato r 08/12/18 103 12:00 08/12/18 101 18 129/57 96 11:45 (81) 08/12/18 102 18 94 40 11:30 08/12/18 105 18 129/57 97 11:30 (81) 08/12/18 111 18 124/58 94 11:15 (80) 08/12/18 92 18 123/54 96 Mechanica 11:00 (77) l Ventilato r 08/12/18 97 16 123/54 96 10:45 (77) 08/12/18 98 18 127/56 96 10:30 (79) 08/12/18 99 18 129/56 96 10:15 (80) 08/12/18 95 18 124/55 94 Mechanica 10:00 (78) l Ventilato r Trach Collar 08/12/18 98 20 94 40 09:50 08/12/18 96 20 123/49 95 09:45 (73) 08/12/18 95 18 128/52 96 09:30 (77) 08/12/18 96 18 126/50 99 09:15 (75) 08/12/18 95 18 123/49 98 Mechanica 09:00 (73) l Ventilato r Trach Collar 08/12/18 98 18 117/49 96 08:45 (71) 08/12/18 98 20 128/52 97 08:30 (77) 08/12/18 92 19 122/56 96 08:15 (78) 08/12/18 40 08:00 08/12/18 97.6 97 18 119/56 100 Mechanica 08:00 (77) l Ventilato r Trach Collar 08/12/18 94 18 100 40 08:00 08/12/18 92 08:00 08/12/18 95 18 124/54 96 07:45 (77) 08/12/18 96 16 121/54 96 07:30 (76) 08/12/18 97 18 120/53 95 07:15 (75) 08/12/18 85 21 122/55 96 Mechanica 07:00 (77) l Ventilato r Trach Collar 08/12/18 100 19 125/56 96 [employer] 06:00 (79) l Ventilato r 08/12/18 95 19 126/57 97 Mechanica 05:00 (80) l Ventilato r 08/12/18 90 18 100 30 04:59 08/12/18 93 04:00 08/12/18 40 04:00 08/12/18 98.9 93 18 119/53 98 Mechanica 04:00 (75) l Ventilato r 08/12/18 92 18 125/56 100 [employer] 03:00 (79) l Ventilato r 08/12/18 93 19 98 30 03:00 08/12/18 85 21 121/55 100 [employer] 02:30 (77) l Ventilato r 08/12/18 85 18 122/56 100 Mechan[employer] 02:00 (78) l Ventilato r 08/12/18 79 18 117/53 100 [employer] 01:30 (74) l Ventilato r 08/12/18 97 18 128/58 100 Mechan[employer] 01:00 (81) l Ventilato r 08/12/18 86 18 98 30 01:00 08/12/18 83 18 123/55 100 Mechanica 00:30 (77) l Ventilato r 08/12/18 40 00:00 08/12/18 95 00:00 08/12/18 97.8 86 18 127/58 100 Mechanica 00:00 (81) l Ventilato r 08/11/18 84 18 127/58 100 Mechan[employer] 23:45 (81) l Ventilato r 08/11/18 95 20 137/61 100 Mechanica 23:30 (86) l Ventilato r 08/11/18 91 18 130/58 100 [employer] 23:15 (82) l Ventilato r 08/11/18 90 18 100 30 23:05 08/11/18 96 18 117/57 100 [employer] 23:00 (77) l Ventilato r 08/11/18 96 18 129/59 100 [employer] 22:45 (82) l Ventilato r 08/11/18 97 18 129/59 100 [employer] 22:30 (82) l Ventilato r 08/11/18 99 18 130/60 100 [employer] 22:15 (83) l Ventilato r 08/11/18 93 18 126/58 100 Mechan[employer] 22:00 (80) l Ventilato r 08/11/18 92 18 100 30 21:12 08/11/18 97.7 70 18 116/58 97 [employer] 21:00 (77) l Ventilato r 08/11/18 87 18 131/65 100 Mechan[employer] 20:00 (87) l Ventilato r 08/11/18 89 20:00 08/11/18 40 20:00 08/11/18 90 18 100 30 19:00 08/11/18 97.8 94 18 116/54 100 Mechanica 19:00 (74) l Ventilato r Vital Signs Date Temp Pulse Resp B/P (MAP) Pulse Ox O2 O2 Flow FiO2 Time Delivery Rate 08/14/18 77 20 98 30 17:08 08/14/18 98.2 125/93 Mechanical 15:05 (104) Ventilator Intake and Output 08/13/18 08/13/18 08/14/18 1515:00 23:00 07:00 IntakeIntake Total 950 ml OutputOutput Total 950 ml 600 ml BalanceBalance 0 ml -600 ml Constitutional: alert, oriented, obese Neck: other ((+) trach on vent) Respiratory: clear to auscultation, normal air movement Cardiovascular: regular rate and rhythm, nl pulses, edema (2+ BLE); No murmurs/extra sounds, No rub Gastrointestinal: soft, nl liver, spleen, bowel sounds, tender (RLQ); No non-tender, No mass, No rebound or guarding Musculoskeletal: nl extremities to inspection Extremities: edema (2+ BLE); No cyanosis, No clubbing Neurological: CHAR FILTER TANK TENDER II-XII intact, nl mental status, nl speech, nl strength Additional Comments Bedside Glucose - 72 Hours Test 08/11/18 20:59 08/12/18 01:37 08/12/18 06:49 08/12/18 08:35 Bedside 167 126 110 124 Glucose mg/dL (70-220) mg/dL (70-220) mg/dL (70-220) mg/dL (70-220) Test 08/12/18 11:42 08/12/18 17:54 08/12/18 20:59 08/13/18 08:20 Bedside 129 178 121 91 Glucose mg/dL (70-220) mg/dL (70-220) mg/dL (70-220) mg/dL (70-220) Test 08/13/18 12:31 08/13/18 17:49 08/13/18 21:25 08/14/18 03:05 Bedside 93 78 117 132 Glucose mg/dL (70-220) mg/dL (70-220) mg/dL (70-220) mg/dL (70-220) Test 08/14/18 08:15 08/14/18 12:17 08/14/18 17:48 Bedside 115 133 106 Glucose mg/dL (70-220) mg/dL (70-220) mg/dL (70-220) Results Result Diagram: 08/14/18 0740 08/14/18 0740 Results 24hrs Laboratory Tests Test 08/13/18 21:25 08/14/18 03:05 08/14/18 07:40 08/14/18 08:15 Bedside Glucose 117 132 115 White Blood Count 14.4 H Red Blood Count 2.74 L Hemoglobin 7.3 L Hematocrit 23.4 L Mean Corpuscular 85.4 Volume Mean Corpuscular 26.6 L Hemoglobin Mean Corpuscular 31.2 L Hemoglobin Concent Red Cell 18.8 H Distribution Width Platelet Count 172 Mean Platelet Volume 9.1 Immature 1.500 H Granulocytes % Neutrophils % 82.1 H Lymphocytes % 7.1 L Monocytes % 7.7 Eosinophils % 1.3 Basophils % 0.3 Nucleated Red Blood 0.0 Cells % Immature 0.210 H Granulocytes # Neutrophils # 11.9 H Lymphocytes # 1.0 Monocytes # 1.1 H Eosinophils # 0.2 Basophils # 0.0 Nucleated Red Blood 0.0 Cells # Sodium Level 131 L Potassium Level 4.1 Chloride Level 98 Carbon Dioxide Level 26 Anion Gap 7 Blood Urea Nitrogen 29 H Creatinine 2.35 H Est Glomerular 28 L Filtrat Rate mL/min Glucose Level 103 Calcium Level 8.1 L Phosphorus Level 5.6 H Magnesium Level 1.8 Test 08/14/18 12:17 08/14/18 17:48 Bedside Glucose 133 106 Medications Medication Current Medications IV Flush (NS 3 ml) 3 ml PER PROTOCOL IV ; Start 08/03/18 at 00:00 Ondansetron HCl (Zofran Inj) 4 mg Q6H PRN IV NAUSEA/VOMITING Last administered on 08/03/18 03:48; Admin Dose 4 MG; Start 08/03/18 at 00:00 Nitroglycerin (Nitroglycerin (Sl Tab) 0.4 Mg) 1 tab Q5M PRN SL .CHEST PAIN; Start 08/03/18 at 00:00 Acetaminophen (Tylenol Tab) 650 mg Q6H PRN PO .PAIN 1-3 OR TEMP Last administered on 08/13/18 01:44; Admin Dose 650 MG; Start 08/03/18 at 00:00 Docusate Sodium (Colace) 100 mg Q12H PRN PO .CONSTIPATION; Start 08/03/18 at 00:00 Bisacodyl (Dulcolax) 5 mg DAILY PRN PO .CONSTIPATION; Start 08/03/18 at 00:00 Ascorbic Acid (Vitamin C) 500 mg DAILY PO Last administered on 08/14/18 08:17; Admin Dose 500 MG; Start 08/03/18 at 09:00 Chlorhexidine Gluconate (Peridex) 15 ml Q12H MM Last administered on 08/14/18 12:18; Admin Dose 15 ML; Start 08/03/18 at 00:00 Ferrous Sulfate (Ferrous Sulfate (Ec)) 325 mg DAILY PO Last administered on 08/14/18 08:17; Admin Dose 325 MG; Start 08/03/18 at 09:00 Pantoprazole (Protonix Tab) 40 mg AC BREAKFAST PO Last administered on 08/14/18 08:16; Admin Dose 40 MG; Start 08/03/18 at 07:25 Sucralfate (Carafate) 1 gm AC MEALS AND BEDTIME PO Last administered on 08/14/18 17:49; Admin Dose 1 GM; Start 08/03/18 at 07:25 Albuterol (Proventil 0.083% (Neb)) 2.5 mg Q4H RESP THERAPY PRN NEB TRACHEOSTOMY Last administered on 08/14/18 16:58; Admin Dose 2.5 MG; Start 08/02/18 at 23:45 Multivitamins/ Minerals (Theragran-M) 1 tab DAILY PO Last administered on 08/14/18 08:16; Admin Dose 1 TAB; Start 08/03/18 at 09:00 Miscellaneous Information 1 ea NOTE XX ; Start 08/02/18 at 23:45 Glucose (Glutose) 15 gm Q15M PRN PO DECREASED GLUCOSE; Start 08/02/18 at 23:45 Glucose (Glutose) 22.5 gm Q15M PRN PO DECREASED GLUCOSE; Start 08/02/18 at 23:45 Dextrose (D50w Syringe) 25 ml Q15M PRN IV DECREASED GLUCOSE; Start 08/02/18 at 23:45 Dextrose (D50w Syringe) 50 ml Q15M PRN IV DECREASED GLUCOSE; Start 08/02/18 at 23:45 Glucagon (Glucagen) 1 mg Q15M PRN IM DECREASED GLUCOSE; Start 08/02/18 at 23:45 Glucose (Glutose) 15 gm Q15M PRN BUCCAL DECREASED GLUCOSE; Start 08/02/18 at 23:45 Simethicone (Mylicon) 80 mg Q8H PRN PO DISTENSION/GAS/BLOATING Last administered on 08/04/18at 01:55; Admin Dose 80 MG; Start 08/03/18 at 04:30 Amlodipine Besylate (Norvasc) 5 mg DAILY PO Last administered on 08/14/18 08:17; Admin Dose 5 MG; Start 08/03/18 at 09:00 Fluconazole (Diflucan) 100 mg DAILY PO Last administered on 08/14/18 08:16; Admin Dose 100 MG; Start 08/03/18 at 09:00 Linezolid (Zyvox) 600 mg BID PO Last administered on 08/14/18 08:16; Admin Dose 600 MG; Start 08/03/18 at 09:00 Amikacin Sulfate (Amikacin Iv Per Pharmacy) AMIKACIN PER PHARMACY NOTE XX ; Start 08/03/18 at 11:30 Insulin Aspart (Novolog Insulin Pen) NOVOLOG *MILD* ALGORI... AC MEALS AND BEDTIME SC Last administered on 08/12/18 18:08; Admin Dose 1 UNIT; Start 08/03/18 at 17:25 Linagliptin (Tradjenta) 5 mg DAILY PO Last administered on 08/14/18 08:17; Admin Dose 5 MG; Start 08/04/18 at 09:00 Diagnostic Test (Pha) (Accu-Chek) 1 ea 02 XX Last administered on 08/14/18 02:00; Admin Dose 1 EA; Start 08/04/18 at 02:00 Insulin Aspart (Novolog Insulin Pen) 10 unit WITH MEALS SC Last administered on 08/14/18 18:06; Admin Dose 10 UNIT; Start 08/03/18 at 17:55 Acetylcysteine (Mucomyst) 2 ml Q8H RESP THERAPY NEB Last administered on 08/14/18 16:58; Admin Dose 2 ML; Start 08/04/18 at 08:00 Collagenase (Santyl) 1 applic DAILY TOP Last administered on 08/14/18 08:17; Admin Dose 1 APPLIC; Start 08/04/18 at 09:00 Amikacin Sulfate 500 mg/Sodium Chloride 102 ml @ 101.6 mls/ hr Q48H IVPB Last administered on 08/13/18 21:32; Admin Dose 101.6 MLS/HR; Start 08/05/18 at 20:00 Diphenhydramine HCl (Benadryl) 25 mg Q6H PRN IV rash or itching Last administered on 08/10/18 22:22; Admin Dose 25 MG; Start 08/05/18 at 11:00 Metoprolol Tartrate (Lopressor) 25 mg BID PO Last administered on 08/14/18 08:17; Admin Dose 25 MG; Start 08/06/18 at 13:30 Insulin Glargine (Lantus) 18 units DAILY@2000 SC Last administered on 08/13/18 21:35; Admin Dose 18 UNITS; Start 08/07/18 at 20:00 Nystatin (Nystatin Powder) 1 applic BID TOP Last administered on 08/14/18 08:17; Admin Dose 1 APPLIC; Start 08/08/18 at 12:30 Enoxaparin Sodium (Lovenox) 30 mg Q24H SC Last administered on 08/09/18 11:42; Admin Dose 30 MG; Start 08/08/18 at 12:30; Status Hold Enoxaparin Sodium (Lovenox) 80 mg Q24H SC Last administered on 08/09/18 11:41; Admin Dose 80 MG; Start 08/08/18 at 12:30; Status Hold Furosemide (Lasix) 40 mg BID IV Last administered on 08/14/18 08:17; Admin Dose 40 MG; Start 08/09/18 at 09:00 Digoxin (Digoxin) 0.125 mg DAILY@13 PO Last administered on 08/13/18at 12:39; Admin Dose 0.125 MG; Start 08/10/18 at 13:00 Morphine Sulfate (morphine) 4 mg Q2H PRN IV .PAIN 7-10 Last administered on 08/14/18at 09:22; Admin Dose 4 MG; Start 08/12/18 at 10:30 ANTONIO ABURTO MD Aug 14, 2018 18:33
[2018-08-14] MEDS: INSULIN GLARGINE [LANTus] (100 UNITS/ML) SYG SC SCH (20:23)
== END 2018-08-14 21:15 | DRG 163 ==
LOC: TEL 08-02 22:00 → ICU 08-11 09:34 → TEL 08-12 14:02
PROVIDERS: ADMIT Internal Medicine; ATTEND Internal Medicine
PROC: 5A1955Z Respiratory Ventilation, Greater than 96 Consecutive Hours (ICD-10-PCS; 2018-08-03)
PROC: 30233N1 Transfusion of Nonautologous Red Blood Cells into Peripheral Vein, Percutaneous Approach (ICD-10-PCS; 2018-08-04)
PROC: 0W9930Z Drainage of Right Pleural Cavity with Drainage Device, Percutaneous Approach (ICD-10-PCS; 2018-08-07)
PROC: 0W9930Z Drainage of Right Pleural Cavity with Drainage Device, Percutaneous Approach (ICD-10-PCS; 2018-08-07)
PROC: 0W990ZZ Drainage of Right Pleural Cavity, Open Approach (ICD-10-PCS; 2018-08-11)
PROC: 0BNF0ZZ Release Right Lower Lung Lobe, Open Approach (ICD-10-PCS; principal; 2018-08-11 07:30)
DX: J86.9 Pyothorax without fistula (principal); J96.21 Acute and chronic respiratory failure with hypoxia; J18.9 Pneumonia, unspecified organism; J96.22 Acute and chronic respiratory failure with hypercapnia; I50.33 Acute on chronic diastolic (congestive) heart failure; Z99.11 Dependence on respirator [ventilator] status; J90 Pleural effusion, not elsewhere classified; N17.9 Acute kidney failure, unspecified; I42.9 Cardiomyopathy, unspecified; B37.49 Other urogenital candidiasis; D63.8 Anemia in other chronic diseases classified elsewhere; E11.22 Type 2 diabetes mellitus with diabetic chronic kidney disease; E66.01 Morbid (severe) obesity due to excess calories; E78.5 Hyperlipidemia, unspecified; E87.70 Fluid overload, unspecified; I48.0 Paroxysmal atrial fibrillation; I27.20 Pulmonary hypertension, unspecified; I11.0 Hypertensive heart disease with heart failure; I25.10 Atherosclerotic heart disease of native coronary artery without angina pectoris; J44.9 Chronic obstructive pulmonary disease, unspecified; K74.60 Unspecified cirrhosis of liver; N18.3 Chronic kidney disease, stage 3 (moderate); R13.10 Dysphagia, unspecified; Y95 Nosocomial condition; Z68.38 Body mass index [BMI] 38.0-38.9, adult; Z93.0 Tracheostomy status; Z93.1 Gastrostomy status; Z79.4 Long term (current) use of insulin; Z79.01 Long term (current) use of anticoagulants
CPT/HCPCS: 36430; 36600; 71045; 74018; 75989; 76705; 77012; 80048; 80053; 80150; 80162; 81001; 81003; 82043; 82803; 82962; 83036; 83605; 83735; 83880; 84100; 84155; 84300; 85025; 85384; 85610; 85730; 86704; 86706; 86708; 86709; 86803; 86850; 86900; 86901; 86920; 87070; 87081; 87086; 87102; 87116; 87340; 88305; 88307; 88311; 92610; 94002; 94003; 94640; 94664; C1729; J0278; J0690; J1200; J1644; J1650; J1815; J1940; J2250; J2270; J2405; J2597; J3010; J3475; J7030; J7040; P9016; Q5105

== ENCOUNTER 2018-11-27 12:19 | Day surgery (SDC) | payer OTHER ==
[2018-11-26 18:08] VITALS: Ht 162.6 cm; Wt 125.1 kg
[~2018-11-27] VITALS: Ht 162.6 cm; Wt 125.1 kg
[~2018-11-27 12:19] MED LIST changes: +AMLO2.5T78 PO; +FLUC100T39 PO; +LINA5TAB PO; +LINE600T PO; +LORA10CA9 PO; +METO25TA4 PO; +MUCO4 NEB; +NYST15CR28 TOP; +SOD62.5V IV; +[UNRECOGNIZED DRUG - OTHER] IV
--- NOTE | 2018-11-27 14:14 | PREAC ---
Date/Time of Note Date/Time of Note DATE: 11/27/18 TIME: 14:10 Anesthesia Eval and Record Evaluation Time Pre-Procedure Interview DATE: 11/27/18 TIME: 14:10 Age 68 Sex male NPO: 8 hrs Preoperative diagnosis R/o endocarditis Planned procedure GERTRUDIS Past Medical History Past Medical History: Includes Cardio: Arrythmia (Afib) Endo: Diabetes Pulm: COPD, Other (res failure) Neuro: Other (encephalopathy, parkinson) GI: Morbid obesity Heme: Anemia Surgery & Anesthesia Issues No known issue Meds Anticoagulation: No Beta Yadira within 24 hr: Yes Reason Beta Yadira not given: Pt. not on B-Yadira Reported Medications Amlodipine Besylate* (Amlodipine Besylate*) 2.5 Mg Tablet, 5 MG PO DAILY, #30 TAB 08/03/18 Acetylcysteine* (Mucomyst*) 4 Ml Soln, 2 ML NEB Q8, EA 08/03/18 Sodium Ferric Gluconate Complx (FERRLECIT 62.5 MG/5 ML VIAL) 62.5 Mg/5 Ml Soln, 125 MG IV DAILY 08/03/18 Loratadine (Loratadine) 10 Mg Capsule, 10 MG PO DAILY, CAP 08/03/18 Nystatin* (Nystatin*) 15 Gm Cr, 1 APPLIC TOP BID, #1 TUB 08/03/18 Metoprolol Tartrate* (Lopressor*) 25 Mg Tablet, 25 MG PO BID, #60 TAB 08/03/18 Linezolid* (Zyvox*) 600 Mg Tablet, 600 MG PO BID, TAB 08/03/18 Linagliptin (TRADJENTA) 5 Mg Tablet, 5 MG PO DAILY, TAB 08/03/18 Fluconazole* (Fluconazole*) 100 Mg Tablet, 100 MG PO DAILY, TAB 08/03/18 Amikacin Sulfate* (Amikacin* Pediatric IV Syringe) 5 Mg/Ml Soln, 400 MG IV q48hr, EA 08/03/18 Insulin Aspart* (Novolog Insulin Pen*) 100 Unit/Ml Soln, 0 SC .SLIDING SCALE AC, EA OR 5 UNITS AC MEALS TID 07/18/18 Insulin Glargine,Hum.rec.anlog (Basaglar Kwikpen U-100) 100 Unit/1 Ml Insuln.pen, 28 UNIT SC QHS, EA 07/18/18 Insulin Glargine,Hum.rec.anlog (Basaglar Kwikpen U-100) 100 Unit/1 Ml Insuln.pen, 18 UNIT SC QAM, EA 07/18/18 Acetaminophen* (Acetaminophen*) 500 MG Extra Strength Tablet, 1000 MG PO Q8H PRN for PAIN, TAB 07/18/18 Acetaminophen* (Tylenol*) 325 Mg Tablet, 650 MG PO Q4H PRN for MILD PAIN LEVEL 1-3, TAB AND FEVER 07/18/18 Ascorbic Acid (Vitamin C) 500 Mg Tab, 500 MG PO DAILY, TAB 07/18/18 Lorazepam* (Lorazepam*) 1 Mg Tablet, 1 MG PO Q6 PRN for ANXIETY, #60 TAB 07/18/18 Sucralfate* (Carafate*) 1 Gm Tab, 1 GM PO AC MEALS AND BEDTIME, TAB 07/18/18 Rivaroxaban* (Xarelto*) 15 Mg Tablet, 15 MG PO WITH DINNER, TAB 07/18/18 Multivitamin with Minerals (Multivitamins with Minerals) 1 Each Tablet, 1 EACH PO DAILY, TAB 07/18/18 Pantoprazole* (Pantoprazole*) 40 Mg Tablet.dr, 40 MG PO AC BREAKFAST, TAB 07/18/18 Polyethylene Glycol* (Miralax*) 17 Gm Powd.pack, 17 GM PO DAILY, #30 PACKET 07/18/18 Ferrous Sulfate* (Ferrous Sulfate*) 325 Mg Tabec, 325 MG PO DAILY, TAB 07/18/18 Digoxin* (Digitek*) 250 Mcg Tablet, 0.25 MG PO DAILY, TAB HOLD IF HR<60 07/18/18 Cranberry Fruit (CRANBERRY) 450 Mg Tablet, 450 MG PO DAILY, TAB 07/18/18 Chlorhexidine Gluconate (Peridex) 473 Ml Mouthwash, 15 ML MM Q12H, BOTTLE 07/18/18 Ipratropium-Albuterol (Ipratropium-Albuterol) 0.5-3 Mg/3 Ml Ampul.neb, 3 ML INHALATION Q4H PRN for VIA TRACHEOSTOMY, #30 VIAL 07/18/18 Albuterol Sulfate* (Albuterol Sulfate* Neb) 0.083%-3 Ml Neb, 2.5 MG NEB Q4H PRN for TRACHEOSTOMY, #30 VIAL AND Q6H NEEDED 07/18/18 Meds reviewed: Yes Allergies Coded Allergies: meropenem (Verified Allergy, Intermediate, skin rashes, 11/27/18) Allergies Reviewed: Yes Labs/Studies Labs Reviewed: Reviewed by anesthesiologist test: N/A Studies: ECG (A fib), CXR (pleural effusion) Pre-procedure Exam Airway: Adequate mouth opening Mallampati: Mallampati II Teeth: Abnormal (missing ) Lung: Normal Heart: Normal ASA Physical Status ASA physical status: 3 Emergency: None Planned Anesthetic General/MAC: MAC Pre-operative Attestations Prior to commencing anesthesia and surgery, the patient was re-evaluated, there was verification of: *The patient's identity *The results of appropriate recent lab work and preoperative vital signs *The above evaluation not changing prior to induction *Anesthetic plan, risk benefits, alternative and complications discussed with patient/family; questions answered; patient/family understands, accepts and wishes to proceed. LYN HERNANDEZ MD Nov 27, 2018 14:14
[2018-11-27] MEDS ORDERED: PROPOFOL 20 ML ONE ×2 (14:18→14:54)
[2018-11-27] MEDS ORDERED: ETOMIDATE 20 MG INJ ONE (14:18)
--- NOTE | 2018-11-28 08:02 | PAC ---
Date/Time of Note Date/Time of Note DATE: 11/28/18 TIME: 08:01 Post-Anesthesia Notes Post-Anesthesia Note Last documented vital signs BP 101/61. sat 97% RR12, tem 98, HR 93 on vent Activity: WNL Respiratory function: WNL Cardiovascular function: WNL Mental status: Baseline Pain reasonably controlled: Yes Hydration appropriate: Yes Nausea/Vomiting absent: No LYN HERNANEDZ MD Nov 28, 2018 08:01
--- NOTE | 2018-12-10 16:48 | HPN ---
Date/Time of Note Date/Time of Note DATE: 11/27/18 TIME: 16:48 Interval H&P Admission Note Pt. seen H&P reviewed: No system changes Nasir Da Silva DO Dec 10, 2018 16:48
== END 2018-11-27 19:00 | disposition home or self-care (01) ==
LOC: SDS 12:19
PROVIDERS: ATTEND Internal Medicine Cardiovascular Disease
DX: I07.1 Rheumatic tricuspid insufficiency (principal); I70.0 Atherosclerosis of aorta; E11.9 Type 2 diabetes mellitus without complications; I50.30 Unspecified diastolic (congestive) heart failure; I48.0 Paroxysmal atrial fibrillation; J44.9 Chronic obstructive pulmonary disease, unspecified; G20 Parkinson's disease
CPT/HCPCS: 93312

== ENCOUNTER 2018-12-10 20:13 | Inpatient (IN) | payer MEDICARE, OTHER ==
[~2018-12-10] VITALS: Ht 170.2 cm; Wt 124.2 kg
[2018-12-10] MEDS ORDERED: LORAZEPAM 2 MG INJ IV PRN (21:00)
[2018-12-10] MEDS ORDERED: LIDOCAINE 1% (MDV) 20 ML INJ INJ ONE (21:00)
[2018-12-10] MEDS ORDERED: HYDROmorphONE 0.5 MG/0.5 ML SYG IV PRN (21:00)
[2018-12-10] MEDS ORDERED: ACETAMINOPHEN 650 MG SUPP PR PRN (21:00)
[2018-12-10] MEDS ORDERED: ACETAMINOPHEN 325 MG TAB PO PRN ×2 (21:00→21:30)
[2018-12-10] MEDS ORDERED: ACETAMINOPHEN 650MG/20.3ML CUP PO PRN (21:00)
[2018-12-10 21:20] VITALS: RESP 21
[2018-12-10] MEDS ORDERED: LORAZEPAM 1 MG TAB PO PRN (21:30)
[2018-12-10] MEDS: CHLORHEXIDINE GLUCONATE 15 ML UD CUP MM SCH (21:30)
[2018-12-10] MEDS ORDERED: ALBUTEROL/IPRATROPIUM (NEB) 3 ML AMP NEB PRN (21:30)
[2018-12-10 22:00] VITALS: BP 103/49; PULSE 92; RESP 17
[2018-12-10] MEDS ORDERED: DEXTROSE 50% 50 ML SYRINGE IV PRN ×3 (22:00→23:00)
[2018-12-10] MEDS ORDERED: DOCUSATE SODIUM 100 MG CAP PO PRN (22:00)
[2018-12-10] MEDS ORDERED: ACETYLCYSTEINE 20% 4 ML VIAL NEB SCH (22:00)
[2018-12-10] MEDS ORDERED: ONDANSETRON 4 MG INJ IV PRN (22:00)
[2018-12-10] MEDS ORDERED: DIPHENHYDRAMINE 50 MG INJ IV PRN (22:00)
[2018-12-10] MEDS ORDERED: MIDODRINE 5 MG TAB PO PRN (22:00)
[2018-12-10] MEDS ORDERED: AMIKACIN IV PER PHARMACY XX SCH (22:30)
[2018-12-10 23:00] VITALS: BP 98/72; PULSE 101; RESP 16; RESP 22
[2018-12-10] MEDS ORDERED: AMIKACIN 625 MG in SOD CHLORIDE 0.9% 100 ML IVPB ONE (23:00)
[2018-12-10] MEDS ORDERED: GLUCAGON 1 MG INJ IM PRN (23:00)
[2018-12-10] MEDS ORDERED: GLUCOSE GEL 15 GRAM TUBE PO PRN ×2 (23:00)
[2018-12-10] MEDS ORDERED: GLUCOSE GEL 15 GRAM TUBE BUCCAL PRN (23:00)
[2018-12-10] MEDS ORDERED: AMIODARONE 900 MG in DEXTROSE 5% 482 ML IV SCH (23:30)
[2018-12-11] VITALS (48 sets, daily range): BP systolic 77–111; BP diastolic 37–65; PULSE 76–106; RESP 14–27; Ht 170.2 cm; Wt 124.2 kg
[2018-12-11] MEDS ORDERED: HEPARIN 1000 UNITS/ML 10 ML INJ IV ONE
[2018-12-11] MEDS ORDERED: ACETYLCYSTEINE 20% 4 ML VIAL NEB SCH ×2
[2018-12-11] MEDS ORDERED: HEPARIN 1000 UNITS/ML 10 ML INJ IV PRN
[2018-12-11] MEDS ORDERED: HEPARIN 25000 UNITS/250 ML 250 ML IV SCH
[2018-12-11] MEDS ORDERED: ASPIRIN 81 MG TAB PO ONE
[2018-12-11] MEDS ORDERED: ACETAMINOPHEN 325 MG TAB PO PRN (01:00)
[2018-12-11] MEDS: ACCU-CHEK XX SCH ×5 (02:00→21:02)
[2018-12-11] MEDS: BUMETANIDE 1 MG INJ IV SCH ×2 (06:00→17:44)
[2018-12-11] MEDS: PANTOPRAZOLE (EC) 40 MG TAB PO SCH (06:11)
[2018-12-11] MEDS ORDERED: SUCRALFATE 1 GM TAB PO SCH (07:05)
[2018-12-11] MEDS: INSULIN ASPART [NOVOLOG] 3 ML PEN SC SCH ×4 (07:35→21:00)
[2018-12-11] MEDS: CALCIUM ACETATE 667 MG CAP PO SCH ×3 (07:35→17:51)
[2018-12-11] MEDS: INSULIN GLARGINE [LANTus] (100 UNITS/ML) SYG SC SCH (08:00)
[2018-12-11] MEDS: FERROUS SULFATE (EC) 325 MG TAB PO SCH (08:06)
[2018-12-11] MEDS: MIDODRINE 5 MG TAB PO SCH ×3 (08:06→17:51)
[2018-12-11] MEDS: POLYETHYLENE GLYCOL 17 GM PACKET PO SCH (08:06)
[2018-12-11] MEDS: ESCITALOPRAM 10 MG TAB PO SCH (08:06)
[2018-12-11] MEDS: SILDENAFIL 20 MG TAB PO SCH ×2 (08:07→20:20)
[2018-12-11] MEDS: ASCORBIC ACID 500 MG TAB PO SCH (08:08)
[2018-12-11] MEDS: MULTIVITAMINS THERAPEUTIC TAB PO SCH (08:08)
[2018-12-11] MEDS ORDERED: LINAGLIPTIN 5 MG TABLET PO SCH (09:00)
[2018-12-11] MEDS ORDERED: AMLODIPINE 5 MG TAB PO SCH (09:00)
[2018-12-11] MEDS ORDERED: METOPROLOL 25 MG TAB PO SCH (09:00)
[2018-12-11] MEDS ORDERED: ZYVOX 600 MG TAB PO SCH (09:00)
[2018-12-11] MEDS ORDERED: [UNRECOGNIZED DRUG - OTHER] IV SCH (09:00)
[2018-12-11] MEDS ORDERED: INSULIN GLARGINE [LANtus] 3 ML PEN SC SCH ×2 (09:00→21:00)
[2018-12-11] MEDS ORDERED: FLUCONAZOLE 100 MG TAB PO SCH (09:00)
[2018-12-11] MEDS ORDERED: DIGOXIN 0.25 MG TAB PO SCH (09:00)
[2018-12-11] MEDS ORDERED: AMIKACIN (5 MG/ML) IV SYG IV* SCH (09:00)
[2018-12-11] MEDS: CHLORHEXIDINE GLUCONATE 15 ML UD CUP MM SCH ×2 (09:23→20:36)
[2018-12-11] MEDS: NYSTATIN 15 GM CR TOP SCH ×2 (09:29→20:36)
[2018-12-11] MEDS: BALSAM PERU/CASTOR OIL 60 GM TUBE TOP SCH ×2 (09:29→20:36)
[2018-12-11] MEDS ORDERED: AMIKACIN 425 MG in SOD CHLORIDE 0.9% 100 ML IVPB SCH (11:24)
[2018-12-11] MEDS ORDERED: SODIUM CHLORIDE 0.9% 1L BAG IV PRN (13:30)
[2018-12-11] MEDS ORDERED: ALBUMIN HUMAN 25% 100 ML IV PRN (13:30)
[2018-12-11] MEDS: SOD FERRIC GLUC COMPLX 125 MG in SOD CHLORIDE 0.9% 100 ML IVPB SCH (13:32)
[2018-12-11] MEDS: morphine 2 MG INJ IV PRN (14:12)
[2018-12-11] MEDS: PIPER-TAZO 2.25 GM (PMX) 50 ML IVPB SCH ×2 (15:05→21:00)
[2018-12-11] MEDS ORDERED: RIVAROXABAN 15 MG TABLET PO SCH (17:35)
[2018-12-12] VITALS (55 sets, daily range): BP systolic 80–114; BP diastolic 35–81; PULSE 76–110; RESP 15–31
[2018-12-12] MEDS: ACCU-CHEK XX SCH ×5 (02:00→20:28)
[2018-12-12] MEDS: morphine 2 MG INJ IV PRN ×2 (04:01→18:24)
[2018-12-12] MEDS: BUMETANIDE 1 MG INJ IV SCH ×2 (06:00→17:24)
[2018-12-12] MEDS: PANTOPRAZOLE (EC) 40 MG TAB PO SCH (07:05)
[2018-12-12] MEDS: PIPER-TAZO 2.25 GM (PMX) 50 ML IVPB SCH ×3 (07:07→22:03)
[2018-12-12] MEDS: INSULIN ASPART [NOVOLOG] 3 ML PEN SC SCH ×4 (07:35→20:27)
[2018-12-12] MEDS: CHLORHEXIDINE GLUCONATE 15 ML UD CUP MM SCH ×2 (08:15→20:40)
[2018-12-12] MEDS: INSULIN GLARGINE [LANTus] (100 UNITS/ML) SYG SC SCH (08:15)
[2018-12-12] MEDS: SILDENAFIL 20 MG TAB PO SCH ×2 (09:00→20:26)
[2018-12-12] MEDS: ALBUMIN HUMAN 25% 100 ML IV PRN (09:11)
[2018-12-12] MEDS: HEPARIN 1000 UNITS/ML 10 ML INJ CATHETER SCH (10:36)
[2018-12-12] MEDS: ESCITALOPRAM 10 MG TAB PO SCH (10:56)
[2018-12-12] MEDS: FERROUS SULFATE (EC) 325 MG TAB PO SCH (10:56)
[2018-12-12] MEDS: MIDODRINE 5 MG TAB PO SCH ×3 (10:56→17:24)
[2018-12-12] MEDS: MULTIVITAMINS THERAPEUTIC TAB PO SCH (10:56)
[2018-12-12] MEDS: CALCIUM ACETATE 667 MG CAP PO SCH ×3 (10:56→17:23)
[2018-12-12] MEDS: ASCORBIC ACID 500 MG TAB PO SCH (10:56)
[2018-12-12] MEDS: NYSTATIN 15 GM CR TOP SCH ×2 (10:57→20:27)
[2018-12-12] MEDS: POLYETHYLENE GLYCOL 17 GM PACKET PO SCH (10:57)
[2018-12-12] MEDS: BALSAM PERU/CASTOR OIL 60 GM TUBE TOP SCH ×2 (10:57→20:27)
[2018-12-12] MEDS ORDERED: DAKINS 0.0125%(1/40) 473 ML SOLUTION TP SCH (14:00)
[2018-12-12] MEDS: SOD FERRIC GLUC COMPLX 125 MG in SOD CHLORIDE 0.9% 100 ML IVPB SCH (14:25)
[2018-12-12] MEDS: EPOETIN ALFA-EPBX (ESRD) 4,000 UNIT/ML VIAL SC SCH (17:53)
[2018-12-12] MEDS: AMIODARONE 200 MG TAB PO SCH (20:26)
[2018-12-13] VITALS (21 sets, daily range): BP systolic 80–129; BP diastolic 40–77; PULSE 76–90; RESP 19–25
[2018-12-13] MEDS: ACCU-CHEK XX SCH ×5 (02:00→21:00)
[2018-12-13] MEDS: PIPER-TAZO 2.25 GM (PMX) 50 ML IVPB SCH ×3 (05:46→22:35)
[2018-12-13] MEDS: BUMETANIDE 1 MG INJ IV SCH ×2 (05:49→17:26)
[2018-12-13] MEDS: PANTOPRAZOLE (EC) 40 MG TAB PO SCH (05:49)
[2018-12-13] MEDS: INSULIN ASPART [NOVOLOG] 3 ML PEN SC SCH ×4 (07:55→21:00)
[2018-12-13] MEDS: ESCITALOPRAM 10 MG TAB PO SCH (08:09)
[2018-12-13] MEDS: MULTIVITAMINS THERAPEUTIC TAB PO SCH (08:09)
[2018-12-13] MEDS: ASCORBIC ACID 500 MG TAB PO SCH (08:09)
[2018-12-13] MEDS: CALCIUM ACETATE 667 MG CAP PO SCH ×3 (08:10→17:25)
[2018-12-13] MEDS: FERROUS SULFATE (EC) 325 MG TAB PO SCH (08:13)
[2018-12-13] MEDS: AMIODARONE 200 MG TAB PO SCH ×3 (08:14→21:00)
[2018-12-13] MEDS: MIDODRINE 5 MG TAB PO SCH ×3 (08:15→17:14)
[2018-12-13] MEDS: SILDENAFIL 20 MG TAB PO SCH ×2 (08:16→21:00)
[2018-12-13] MEDS: POLYETHYLENE GLYCOL 17 GM PACKET PO SCH (08:16)
[2018-12-13] MEDS: BALSAM PERU/CASTOR OIL 60 GM TUBE TOP SCH ×2 (08:18→21:04)
[2018-12-13] MEDS: NYSTATIN 15 GM CR TOP SCH ×2 (08:18→21:04)
[2018-12-13] MEDS: CHLORHEXIDINE GLUCONATE 15 ML UD CUP MM SCH ×2 (08:25→21:04)
[2018-12-13] MEDS: INSULIN GLARGINE [LANTus] (100 UNITS/ML) SYG SC SCH (09:55)
[2018-12-13] MEDS: SOD FERRIC GLUC COMPLX 125 MG in SOD CHLORIDE 0.9% 100 ML IVPB SCH ×2 (12:57→13:02)
[2018-12-14] VITALS (33 sets, daily range): BP systolic 84–144; BP diastolic 37–73; PULSE 69–100; RESP 14–22
[2018-12-14] MEDS: ACCU-CHEK XX SCH ×5 (02:00→21:00)
[2018-12-14] MEDS: BUMETANIDE 1 MG INJ IV SCH ×2 (06:00→17:18)
[2018-12-14] MEDS: PIPER-TAZO 2.25 GM (PMX) 50 ML IVPB SCH ×3 (06:14→22:12)
[2018-12-14] MEDS: PANTOPRAZOLE (EC) 40 MG TAB PO SCH (06:15)
[2018-12-14] MEDS: INSULIN ASPART [NOVOLOG] 3 ML PEN SC SCH ×4 (07:31→21:00)
[2018-12-14] MEDS: CALCIUM ACETATE 667 MG CAP PO SCH ×3 (07:55→17:18)
[2018-12-14] MEDS: CHLORHEXIDINE GLUCONATE 15 ML UD CUP MM SCH ×2 (08:22→22:12)
[2018-12-14] MEDS: BALSAM PERU/CASTOR OIL 60 GM TUBE TOP SCH ×2 (08:23→21:12)
[2018-12-14] MEDS: NYSTATIN 15 GM CR TOP SCH ×2 (08:23→21:10)
[2018-12-14] MEDS: INSULIN GLARGINE [LANTus] (100 UNITS/ML) SYG SC SCH (08:25)
[2018-12-14] MEDS: ASCORBIC ACID 500 MG TAB PO SCH (09:00)
[2018-12-14] MEDS: SILDENAFIL 20 MG TAB PO SCH ×2 (09:00→21:00)
[2018-12-14] MEDS: MIDODRINE 5 MG TAB PO SCH ×3 (09:00→17:11)
[2018-12-14] MEDS: ESCITALOPRAM 10 MG TAB PO SCH (09:00)
[2018-12-14] MEDS: MULTIVITAMINS THERAPEUTIC TAB PO SCH (09:00)
[2018-12-14] MEDS: FERROUS SULFATE (EC) 325 MG TAB PO SCH (09:00)
[2018-12-14] MEDS: POLYETHYLENE GLYCOL 17 GM PACKET PO SCH (09:00)
[2018-12-14] MEDS: AMIODARONE 200 MG TAB PO SCH ×2 (09:00→21:08)
[2018-12-14] MEDS: ALBUMIN HUMAN 25% 100 ML IV PRN (11:09)
[2018-12-14] MEDS: HEPARIN 1000 UNITS/ML 10 ML INJ CATHETER SCH (13:20)
[2018-12-14] MEDS: EPOETIN ALFA-EPBX (ESRD) 4,000 UNIT/ML VIAL SC SCH (17:13)
[2018-12-15] VITALS (17 sets, daily range): BP systolic 92–110; BP diastolic 50–58; PULSE 92–110; RESP 16–27
[2018-12-15] MEDS: ACCU-CHEK XX SCH ×5 (02:00→20:53)
[2018-12-15] MEDS: PIPER-TAZO 2.25 GM (PMX) 50 ML IVPB SCH ×3 (06:29→20:41)
[2018-12-15] MEDS: PANTOPRAZOLE (EC) 40 MG TAB PO SCH (06:59)
[2018-12-15] MEDS: INSULIN ASPART [NOVOLOG] 3 ML PEN SC SCH ×4 (07:55→20:53)
[2018-12-15] MEDS: SILDENAFIL 20 MG TAB PO SCH ×2 (09:00→20:34)
[2018-12-15] MEDS: CHLORHEXIDINE GLUCONATE 15 ML UD CUP MM SCH ×2 (09:52→20:40)
[2018-12-15] MEDS: FERROUS SULFATE (EC) 325 MG TAB PO SCH (09:53)
[2018-12-15] MEDS: ESCITALOPRAM 10 MG TAB PO SCH (09:53)
[2018-12-15] MEDS: CALCIUM ACETATE 667 MG CAP PO SCH ×3 (09:53→18:00)
[2018-12-15] MEDS: ASCORBIC ACID 500 MG TAB PO SCH (09:53)
[2018-12-15] MEDS: MULTIVITAMINS THERAPEUTIC TAB PO SCH (09:53)
[2018-12-15] MEDS: AMIODARONE 200 MG TAB PO SCH ×2 (09:53→20:40)
[2018-12-15] MEDS: MIDODRINE 5 MG TAB PO SCH ×3 (09:54→18:00)
[2018-12-15] MEDS: POLYETHYLENE GLYCOL 17 GM PACKET PO SCH (09:54)
[2018-12-15] MEDS: BALSAM PERU/CASTOR OIL 60 GM TUBE TOP SCH ×2 (09:59→20:40)
[2018-12-15] MEDS: NYSTATIN 15 GM CR TOP SCH ×2 (09:59→20:40)
[2018-12-15] MEDS: INSULIN GLARGINE [LANTus] (100 UNITS/ML) SYG SC SCH (10:11)
[2018-12-15] MEDS: SOD FERRIC GLUC COMPLX 125 MG in SOD CHLORIDE 0.9% 100 ML IVPB SCH (13:37)
[2018-12-16] VITALS (18 sets, daily range): BP systolic 81–108; BP diastolic 47–53; PULSE 100–108; RESP 13–24
[2018-12-16] MEDS: ACCU-CHEK XX SCH ×5 (02:00→21:07)
[2018-12-16] MEDS: PIPER-TAZO 2.25 GM (PMX) 50 ML IVPB SCH (05:29)
[2018-12-16] MEDS: PANTOPRAZOLE (EC) 40 MG TAB PO SCH (07:25)
[2018-12-16] MEDS: INSULIN ASPART [NOVOLOG] 3 ML PEN SC SCH ×4 (07:55→21:00)
[2018-12-16] MEDS: INSULIN GLARGINE [LANTus] (100 UNITS/ML) SYG SC SCH (08:00)
[2018-12-16] MEDS: SILDENAFIL 20 MG TAB PO SCH ×2 (09:00→21:00)
[2018-12-16] MEDS: BALSAM PERU/CASTOR OIL 60 GM TUBE TOP SCH ×2 (09:49→21:09)
[2018-12-16] MEDS: ESCITALOPRAM 10 MG TAB PO SCH (09:49)
[2018-12-16] MEDS: CHLORHEXIDINE GLUCONATE 15 ML UD CUP MM SCH ×2 (09:49→21:08)
[2018-12-16] MEDS: POLYETHYLENE GLYCOL 17 GM PACKET PO SCH (09:49)
[2018-12-16] MEDS: NYSTATIN 15 GM CR TOP SCH ×2 (09:49→21:12)
[2018-12-16] MEDS: CALCIUM ACETATE 667 MG CAP PO SCH ×3 (09:50→17:36)
[2018-12-16] MEDS: MULTIVITAMINS THERAPEUTIC TAB PO SCH (09:50)
[2018-12-16] MEDS: MIDODRINE 10 MG TABLET PO SCH ×3 (09:50→17:36)
[2018-12-16] MEDS: ASCORBIC ACID 500 MG TAB PO SCH (09:50)
[2018-12-16] MEDS: AMIODARONE 200 MG TAB PO SCH ×2 (09:52→21:08)
[2018-12-16] MEDS: FERROUS SULFATE (EC) 325 MG TAB PO SCH (09:52)
[2018-12-16] MEDS ORDERED: DAPTOMYCIN 1,000 MG in SOD CHLORIDE 0.9% 100 ML IVPB SCH (12:00)
[2018-12-16] MEDS ORDERED: AMPICILLIN 1 GM/NS (PMX) 50 ML IVPB SCH (14:00)
[2018-12-17] VITALS (20 sets, daily range): BP systolic 65–147; BP diastolic 38–66; PULSE 0–137; RESP 16–22
[2018-12-17] MEDS: ACCU-CHEK XX SCH ×2 (02:00→07:25)
[2018-12-17] MEDS ORDERED: EPINEPHrine 0.1 MG/ML SYG ONE ×2 (07:00)
[2018-12-17] MEDS ORDERED: CA CHLORIDE 10% 10 ML SYRINGE ONE (07:00)
[2018-12-17] MEDS ORDERED: NA BICARBONATE 8.4% 50 ML SYG ONE ×2 (07:00)
[2018-12-17] MEDS ORDERED: LIDOCAINE 100 MG SYRINGE ONE (07:00)
[2018-12-17] MEDS ORDERED: AMIODARONE 150 MG INJ ONE (07:00)
[2018-12-17] MEDS: PANTOPRAZOLE (EC) 40 MG TAB PO SCH (07:25)
[2018-12-17] MEDS: SILDENAFIL 20 MG TAB PO SCH (07:54)
[2018-12-17] MEDS: INSULIN ASPART [NOVOLOG] 3 ML PEN SC SCH (07:55)
[2018-12-17] MEDS: CALCIUM ACETATE 667 MG CAP PO SCH (07:55)
[2018-12-17] MEDS: INSULIN GLARGINE [LANTus] (100 UNITS/ML) SYG SC SCH (08:00)
[2018-12-17] MEDS: ALBUMIN HUMAN 25% 100 ML IV PRN (08:51)
[2018-12-17] MEDS: MULTIVITAMINS THERAPEUTIC TAB PO SCH (09:00)
[2018-12-17] MEDS: POLYETHYLENE GLYCOL 17 GM PACKET PO SCH (09:00)
[2018-12-17] MEDS: NYSTATIN 15 GM CR TOP SCH (09:00)
[2018-12-17] MEDS: AMIODARONE 200 MG TAB PO SCH (09:00)
[2018-12-17] MEDS: ASCORBIC ACID 500 MG TAB PO SCH (09:00)
[2018-12-17] MEDS: BALSAM PERU/CASTOR OIL 60 GM TUBE TOP SCH (09:00)
[2018-12-17] MEDS: MIDODRINE 10 MG TABLET PO SCH (09:00)
[2018-12-17] MEDS: ESCITALOPRAM 10 MG TAB PO SCH (09:00)
[2018-12-17] MEDS ORDERED: SOD CHLORIDE 0.9% 250 ML IV ONE ×2 (09:00→10:30)
[2018-12-17] MEDS: FERROUS SULFATE (EC) 325 MG TAB PO SCH (09:00)
[2018-12-17] MEDS: CHLORHEXIDINE GLUCONATE 15 ML UD CUP MM SCH (09:30)
[2018-12-17] MEDS ORDERED: NORepinephrine 8MG/250 ML (PMX 250 ML IV SCH (12:00)
[2018-12-17] MEDS ORDERED: GLUCAGON 1 MG INJ IM PRN (12:30)
[2018-12-17] MEDS ORDERED: GLUCOSE GEL 15 GRAM TUBE PO PRN ×2 (12:30)
[2018-12-17] MEDS ORDERED: PHENYLephrine 80 MG in DEXTROSE 5% 242 ML IV SCH (12:30)
[2018-12-17] MEDS ORDERED: GLUCOSE GEL 15 GRAM TUBE BUCCAL PRN (12:30)
[2018-12-17] MEDS ORDERED: AMIKACIN IV PER PHARMACY XX SCH (12:30)
[2018-12-17] MEDS ORDERED: DEXTROSE 50% 50 ML SYRINGE IV PRN ×2 (12:30)
[2018-12-17] MEDS ORDERED: INSULIN ASPART [NOVOLOG] 3 ML PEN SC SCH (13:00)
[2018-12-17] MEDS ORDERED: AMPICILLIN 1 GM/NS (PMX) 50 ML IVPB SCH (14:00)
[2018-12-17] MEDS ORDERED: VANCOMYCIN IV PER PHARMACY XX SCH (14:00)
[2018-12-18] MEDS ORDERED: PANTOPRAZOLE 40 MG INJ IV SCH (06:00)
== END 2018-12-17 12:45 | disposition expired | DRG 870 ==
LOC: ICU 20:13 → TEL 12-13 02:21 → ICU 12-17 12:01
PROVIDERS: ADMIT Internal Medicine; ATTEND Internal Medicine
PROC: 5A1955Z Respiratory Ventilation, Greater than 96 Consecutive Hours (ICD-10-PCS; principal; 2018-12-10)
PROC: 30233N1 Transfusion of Nonautologous Red Blood Cells into Peripheral Vein, Percutaneous Approach (ICD-10-PCS; 2018-12-11)
PROC: 30233R1 Transfusion of Nonautologous Platelets into Peripheral Vein, Percutaneous Approach (ICD-10-PCS; 2018-12-16)
DX: A41.9 Sepsis, unspecified organism (principal); J96.21 Acute and chronic respiratory failure with hypoxia; J69.0 Pneumonitis due to inhalation of food and vomit; N18.6 End stage renal disease; J96.22 Acute and chronic respiratory failure with hypercapnia; I13.2 Hypertensive heart and chronic kidney disease with heart failure and with stage 5 chronic kidney disease, or end stage renal disease; I50.32 Chronic diastolic (congestive) heart failure; Z68.41 Body mass index [BMI] 40.0-44.9, adult; I48.91 Unspecified atrial fibrillation; E11.22 Type 2 diabetes mellitus with diabetic chronic kidney disease; E66.01 Morbid (severe) obesity due to excess calories; Z99.2 Dependence on renal dialysis; Z79.4 Long term (current) use of insulin; Z87.891 Personal history of nicotine dependence
CPT/HCPCS: 36430; 36600; 71045; 76705; 80048; 80076; 82550; 82607; 82746; 82803; 82962; 83010; 83036; 83605; 83615; 83735; 84100; 84145; 84155; 84165; 84484; 85025; 85045; 85049; 85362; 85378; 85384; 85610; 85651; 85670; 85730; 86022; 86850; 86900; 86901; 86920; 86945; 87081; 87340; 90935; 92523; 92526; 92610; 92950; 93005; 94002; 94003; J0171; J0278; J0282; J0290; J1644; J1815; J2001; J2270; J2370; J2543; J2916; J7040; J7060; J7070; P9016; P9035; P9047; Q5105